=== PATIENT | male | born 1955 | race Caucasian/White ===

== ENCOUNTER 2020-03-29 21:14 | Inpatient (IN) | payer BC, MEDICARE ==
[2020-03-29 21:35] LABS: Glucose,Whole Blood 337 mg/dL (75-99)
[2020-03-29] MEDS ORDERED: MAGNESIUM SULFATE-D5W PMX 1 GM in DEXTROSE/WATER 1 100ML.BAG IVPB ONE (21:37)
[2020-03-29 21:42] LABS: Basophils # (A) 0.1 k/uL (0-0.2); Basophils % (A) 1 %; Eosinophils # (A) 0.3 k/uL (0-0.7); Eosinophils % (A) 2 %; HCT 49.8 % (39.0-53.0); HGB 15.5 gm/dL (13.0-17.5); Hypochromasia Slight; Lymphocytes # (A) 3.4 k/uL (1.0-4.8); Lymphocytes % (A) 26 %; MCH 29.3 pg (25.0-35.0); MCHC 31.2 g/dL (31.0-37.0); MCV 94.1 fL (80.0-100.0); Mean Platelet Volume 8.6; Monocytes # (A) 0.6 k/uL (0-1.0); Monocytes % (A) 4 %; Neutrophils # (A) 8.6 k/uL (1.3-7.7); Neutrophils % (A) 66 %; Platelet Count 168 k/uL (150-450); RBC 5.29 m/uL (4.30-5.90); RDW 14.4 % (11.5-15.5); WBC 13.2 k/uL (3.8-10.6)
[2020-03-29 21:47] LABS: Albumin 4.2 g/dL (3.5-5.0); Magnesium 2.2 mg/dL (1.6-2.3); Potassium 4.7 mmol/L (3.5-5.1); Total Bilirubin 0.6 mg/dL (0.2-1.3); Total Protein 6.9 g/dL (6.3-8.2)
--- NOTE | 2020-03-29 22:04 | XR ---
EXAMINATION TYPE: XR chest 1V portable DATE OF EXAM: 03/29/2020 COMPARISON: NONE HISTORY: Respiratory distress TECHNIQUE: Single view FINDINGS: There is some pulmonary interstitial edema. There is slight blunting of the costophrenic an gles. There are no hilar masses. IMPRESSION: There is pulmonary edema that probably relates to acute heart failure. Small pleural effu sions.
[2020-03-29] MEDS ORDERED: SODIUM CHLORIDE 0.9% 2,000 ML IV ONE (22:07)
[2020-03-29] MEDS ORDERED: NITROGLYCERIN-D5W PMX 50 MG in DEXTROSE/WATER 1 250ML.BAG IV ONE (22:09)
[2020-03-29 22:12] LABS: INR 0.9 (<1.2); Partial Thromboplastin Time 22.7 sec (22.0-30.0); Prothrombin Time 9.8 sec (9.0-12.0)
[2020-03-29 22:20] LABS: D-Dimer 4.6 mg/L FEU (<0.60)
--- NOTE | 2020-03-29 22:20 | ED ---
SOB HPI - General Chief Complaint: Shortness of Breath Stated Complaint: respiratory distress Time Seen by Provider: 03/29/20 21:15 Source: patient, EMS Mode of arrival: EMS Limitations: no limitations - History of Present Illness Initial Comments: 64-year-old male with past history of AAA with repair in 2004 who presents to the emergency department with shortness of breath. Patient stated that he had sudden onset of shortness of breath while he was at home. Denies history of previous underlying heart conditions. Denies history of heart failure. EMS arrived to the patient's house to find him cool, diaphoretic and pale. They found him to have original sat in the mid 80s on a nonrebreather. Patient was then placed on CPAP and transported to the hospital. They reported the patient to be in an A. fib rhythm. Patient denies previous history of dysrhythmia. No history of DVT or PE. Denies cough, hemoptysis, recent travel or sick contacts the lower extremity edema. Denies ripping or tearing sensation to his back. Denies any abdominal pain. No other alleviating, precipitating or modifying factors - Related Data Home Medications Medication Instructions Recorded Confirmed Fish Oil/Dha/Epa [Fish Oil 1,200 1 cap PO DAILY 03/29/20 03/29/20 mg Fish Oil] Allergies Allergy/AdvReac Type Severity Reaction Status Date / Time Tetracyclines Allergy Unknown Verified 03/29/20 22:56 Review of Systems ROS Statement: Those systems with pertinent positive or pertinent negative responses have been documented in the HPI. ROS Other: All systems not noted in ROS Statement are negative. Past Medical History Past Medical History: No Reported History History of Any Multi-Drug Resistant Organisms: None Reported Additional Past Surgical History / Comment(s): abdominal surgery, AAA repair 2004 Past Psychological History: No Psychological Hx Reported Smoking Status: Current some day smoker Past Alcohol Use History: None Reported Past Drug Use History: None Reported General Exam Limitations: no limitations Course Vital Signs 03/29/20 03/29/20 03/29/20 21:15 21:22 22:38 Temperature 98.6 F Pulse Rate 144 H 131 H Respiratory 28 H 28 H Rate Blood Pressure 220/126 166/107 O2 Sat by Pulse 90 L 98 Oximetry 03/29/20 03/29/20 23:01 23:12 Temperature Pulse Rate 115 H 112 H Respiratory 23 18 Rate Blood Pressure 139/95 140/92 O2 Sat by Pulse 97 97 Oximetry - Reevaluation(s) Reevaluation #1: Discuss case with Dr. Lozano who accepted admission 03/29/20 22:10 Reevaluation #2: 03/29/20 23:[address] Amaral who agreed to heparinization Reevaluation #3: Spoke with Dr. Curtis who accepted admission to the ICU 03/29/20 23:54 Medical Decision Making - Medical Decision Making Upon arrival the patient was placed in a trauma 1. A thorough history and physical exam was performed. Patient was transitioned from CPAP to BiPAP. Patient to continuous pulse ox and cardiac monitoring. A 12-lead EKG was attempted however there is significant baseline artifact. Vitals are obtain and the patient is extremely hypertensive. A portal chest x-rays performed does demonstrate fluid overload. Patient was given 1 g of magnesium. Laboratory studies are performed and the patient was sent over for a CT of his chest, abdomen and pelvis due to his previous history of AAA. Laboratory studies are unremarkable for a white count of 13.2. Glucose 270. Lactic acid 7.6. Troponin 0.509. BNP 5780. CTA demonstrates no signs of pulmonary embolism. Cardiomegaly with pleural effusions and interstitial edema. CT demonstrates mild bowel ileus. Clearing of left-sided hydronephrosis and hydroureter. The patient was initiated on a nitro drip. This is started at 20 mcg/min and titrated up to 50 mics per minute. Patient does have significant improvement in his worker breathing, heart rate and blood pressure. Patient is able to be child off of the BiPAP at this time. He was given 60 mg of Lasix. Patient be admitted to the ICU. I discussed the case with Dr. Lozano, Dr. Ramos and Dr. Beltran. Patient is heparinized. He remained in stable condition awaiting transport to the floor - Lab Data Result diagrams: 03/29/20 21:28 03/29/20 21:28 Lab Results 03/29/20 03/29/20 03/29/20 Range/Units 21:28 21:28 21:28 WBC 13.2 H (3.8-10.6) k/uL RBC 5.29 (4.30-5.90) m/uL Hgb 15.5 (13.0-17.5) gm/dL Hct 49.8 (39.0-53.0) % MCV 94.1 (80.0-100.0) fL MCH 29.3 (25.0-35.0) pg MCHC 31.2 (31.0-37.0) g/dL RDW 14.4 (11.5-15.5) % Plt Count 168 (150-450) k/uL Neutrophils % 66 % Lymphocytes % 26 % Monocytes % 4 % Eosinophils % 2 % Basophils % 1 % Neutrophils # 8.6 H (1.3-7.7) k/uL Lymphocytes # 3.4 (1.0-4.8) k/uL Monocytes # 0.6 (0-1.0) k/uL Eosinophils # 0.3 (0-0.7) k/uL Basophils # 0.1 (0-0.2) k/uL Hypochromasia Slight PT 9.8 (9.0-12.0) sec INR 0.9 (<1.2) APTT 22.7 (22.0-30.0) sec D-Dimer 4.60 H (<0.60) mg/L FEU Sodium 140 (137-145) mmol/L Potassium 4.7 (3.5-5.1) mmol/L Chloride 110 H (98-107) mmol/L Carbon Dioxide 15 L (22-30) mmol/L Anion Gap 15 mmol/L BUN 21 H (9-20) mg/dL Creatinine 1.15 (0.66-1.25) mg/dL Est GFR (CKD-EPI)AfAm 77 (>60 ml/min/1.73 sqM) Est GFR (CKD-EPI)NonAf 67 (>60 ml/min/1.73 sqM) Glucose 270 H (74-99) mg/dL POC Glucose (mg/dL) (75-99) mg/dL POC Glu Admitting Supervisor ID Plasma Lactic Acid Abdiel (0.7-2.0) mmol/L Calcium 9.0 (8.4-10.2) mg/dL Magnesium 2.2 (1.6-2.3) mg/dL Total Bilirubin 0.6 (0.2-1.3) mg/dL AST 59 (17-59) U/L ALT 38 (4-49) U/L Alkaline Phosphatase 78 (38-126) U/L Troponin I (0.000-0.034) ng/mL NT-Pro-B Natriuret Pep pg/mL Total Protein 6.9 (6.3-8.2) g/dL Albumin 4.2 (3.5-5.0) g/dL 03/29/20 03/29/20 03/29/20 Range/Units 21:28 21:28 21:28 WBC (3.8-10.6) k/uL RBC (4.30-5.90) m/uL Hgb (13.0-17.5) gm/dL Hct (39.0-53.0) % MCV (80.0-100.0) fL MCH (25.0-35.0) pg MCHC (31.0-37.0) g/dL RDW (11.5-15.5) % Plt Count (150-450) k/uL Neutrophils % % Lymphocytes % % Monocytes % % Eosinophils % % Basophils % % Neutrophils # (1.3-7.7) k/uL Lymphocytes # (1.0-4.8) k/uL Monocytes # (0-1.0) k/uL Eosinophils # (0-0.7) k/uL Basophils # (0-0.2) k/uL Hypochromasia PT (9.0-12.0) sec INR (<1.2) APTT (22.0-30.0) sec D-Dimer (<0.60) mg/L FEU Sodium (137-145) mmol/L Potassium (3.5-5.1) mmol/L Chloride (98-107) mmol/L Carbon Dioxide (22-30) mmol/L Anion Gap mmol/L BUN (9-20) mg/dL Creatinine (0.66-1.25) mg/dL Est GFR (CKD-EPI)AfAm (>60 ml/min/1.73 sqM) Est GFR (CKD-EPI)NonAf (>60 ml/min/1.73 sqM) Glucose (74-99) mg/dL POC Glucose (mg/dL) (75-99) mg/dL POC Glu Admitting Supervisor ID Plasma Lactic Acid Abdiel 7.6 H* (0.7-2.0) mmol/L Calcium (8.4-10.2) mg/dL Magnesium (1.6-2.3) mg/dL Total Bilirubin (0.2-1.3) mg/dL AST (17-59) U/L ALT (4-49) U/L Alkaline Phosphatase (38-126) U/L Troponin I 0.509 H* (0.000-0.034) ng/mL NT-Pro-B Natriuret Pep 5780 pg/mL Total Protein (6.3-8.2) g/dL Albumin (3.5-5.0) g/dL 03/29/20 Range/Units 21:32 WBC (3.8-10.6) k/uL RBC (4.30-5.90) m/uL Hgb (13.0-17.5) gm/dL Hct (39.0-53.0) % MCV (80.0-100.0) fL MCH (25.0-35.0) pg MCHC (31.0-37.0) g/dL RDW (11.5-15.5) % Plt Count (150-450) k/uL Neutrophils % % Lymphocytes % % Monocytes % % Eosinophils % % Basophils % % Neutrophils # (1.3-7.7) k/uL Lymphocytes # (1.0-4.8) k/uL Monocytes # (0-1.0) k/uL Eosinophils # (0-0.7) k/uL Basophils # (0-0.2) k/uL Hypochromasia PT (9.0-12.0) sec INR (<1.2) APTT (22.0-30.0) sec D-Dimer (<0.60) mg/L FEU Sodium (137-145) mmol/L Potassium (3.5-5.1) mmol/L Chloride (98-107) mmol/L Carbon Dioxide (22-30) mmol/L Anion Gap mmol/L BUN (9-20) mg/dL Creatinine (0.66-1.25) mg/dL Est GFR (CKD-EPI)AfAm (>60 ml/min/1.73 sqM) Est GFR (CKD-EPI)NonAf (>60 ml/min/1.73 sqM) Glucose (74-99) mg/dL POC Glucose (mg/dL) 337 H (75-99) mg/dL POC Glu Admitting Supervisor ID Mary Edwards Plasma Lactic Acid Abdiel (0.7-2.0) mmol/L Calcium (8.4-10.2) mg/dL Magnesium (1.6-2.3) mg/dL Total Bilirubin (0.2-1.3) mg/dL AST (17-59) U/L ALT (4-49) U/L Alkaline Phosphatase (38-126) U/L Troponin I (0.000-0.034) ng/mL NT-Pro-B Natriuret Pep pg/mL Total Protein (6.3-8.2) g/dL Albumin (3.5-5.0) g/dL - EKG Data EKG Comments: EKG at 2127 demonstrates sinus tachycardia with a ventricular rate of 140. UT interval 146. QRS 120. QTC of 424. Significant baseline artifact. Some PVCs present. No identifiable distinct P waves and rhythm looks mildly irregular. Repeat EKG is performed at 2235 which demonstrates last baseline artifact. Sinus tachycardia present with a rate of 135. UT interval 120. QRS 112. QTC of 513. No acute ST segment elevations. Some ST depression. Third EKG at 2331 demonstrates sinus tachycardia with a ventricular rate of 110. UT interval 164. QRS 196. QTC of 498. Q-wave in lead 3. No acute ST segment elevations. Minimal depression in V5V6 Disposition Clinical Impression: Hypoxia, BiPAP (biphasic positive airway pressure) dependence, Acute pulmonary edema, NSTEMI (non-ST elevated myocardial infarction) Disposition: ADMITTED IP TO THIS [facility] Condition: Serious Referrals: Rosalino Mcallister MD [Primary Care Provider] - 1-2 days Decision to Admit Reason: Admit from EC Decision Date: 03/29/20 Decision Time: 23:18
--- NOTE | 2020-03-29 22:44 | CT ---
EXAMINATION TYPE: CT chest angio for PE DATE OF EXAM: 03/29/2020 COMPARISON: None HISTORY: SOB CT DLP: 638 mGycm Automated exposure control for dose reduction was used. CONTRAST: Performed with IV Contrast, patient injected with 100 mL of Isovue 370. There are 3-D post processed images. There are small bilateral pleural effusions. There is fluid in the major fissures. Heart is enlarged. There is no pericardial effusion. There is reflux of contrast into the inferior vena cava that could relate to heart failure. There is diffuse pulmonary interstitial edema. There are small paratracheal lymph nodes measuring less than 1 cm. There are no hilar masses. Thoracic spine is intact. Sternum i s intact. Upper abdominal soft tissues are intact. There is aortoiliac bypass graft noted. I see no filling defects in the pulmonary arteries. IMPRESSION: No evidence of pulmonary embolism. Cardiomegaly with pleural effusions and interstitial edema suggest jonah of congestive heart failure.
--- NOTE | 2020-03-29 22:52 | CT ---
EXAMINATION TYPE: CT abdomen pelvis w con DATE OF EXAM: 03/29/2020 COMPARISON: None HISTORY: abd pain CT DLP: 1309.9 mGycm Automated exposure control for dose reduction was used. CONTRAST: Performed with IV Contrast, patient injected with 100 mL of Isovue 370. Multiple axial sections were obtained from the diaphragm to the floor the pelvis with IV contrast. There are small bilateral pleural effusions. Heart is enlarged. There is interstitial infiltrates in both lower lobes. Liver shows no focal defect. Gallbladder is intact. Spleen is intact. Stomach is intact. There is no evidence of pancreatic mass. There is 2.5 cm rounded mass left adrenal gland. There is 2 cm cyst late ral right kidney. There is 1.5 cm cyst lower pole right kidney. There is no hydronephrosis. Abdominal aorta is atheromatous. There is aortoiliac bypass graft noted. There is normal contrast opacificatio n of the bypass graft. There is minimal thrombus on the anterior wall left iliac graft without eviden ce of hemodynamic stenosis. There is no retroperitoneal adenopathy. Delayed images show normal renal excretion. Ureters are not dilated. There is no retroperitoneal adenopathy. Prostate shows calcificat ions and mild enlargement. Bladder distends smoothly. There is no inguinal hernia. There is no free f luid in the pelvis. I see no sign of a bowel obstruction. There are a few distended fluid-filled small bowel loops in the mid abdomen. There is no evidence of free air. There is no ascites. Lumbar spine is intact. Bony pelvis is intact. Hip joints are intact. IMPRESSION: There is evidence for some mild small bowel ileus. I do not see evidence for mechanical bowel obstruc tion. There is clearing of the left-sided hydronephrosis and hydroureter compared to old exam.
[2020-03-29] MEDS ORDERED: HEPARIN SODIUM,PORCINE 5,000 UNIT/ML 1 ML VIAL IV PRN (23:06)
[2020-03-29] MEDS ORDERED: HEPARIN SODIUM,PORCINE 5,000 UNIT/ML 1 ML VIAL IV ONE (23:06)
[2020-03-29] MEDS ORDERED: NALOXONE 0.4 MG/ML 1 ML VIAL IV PRN (23:18)
[2020-03-29] MEDS: HEPARIN SOD,PORK IN 0.45% NACL 25,000 UNIT in 0.45% NACL 1 250ML.BAG IV SCH (23:21)
[2020-03-29] MEDS ORDERED: FUROSEMIDE 10 MG/ML 10 ML VIAL IV STA (23:52)
--- NOTE | 2020-03-30 01:15 | CT ---
EXAMINATION TYPE: CT brain wo con DATE OF EXAM: 03/30/2020 COMPARISON: None HISTORY: stroke CT DLP: 1168.4 mGycm Automated exposure control for dose reduction was used. There is mild cerebral atrophy. There is no mass effect nor midline shift. There is no sign of intrac ranial hemorrhage. Calvarium is intact. There are two 5 mm hypodense foci in the right internal capsu le. There is 2 cm cortical hypodensity right occipital lobe without mass effect. There is 3 cm area o f cortical hypodensity right parietal lobe. No mass effect Blood in the basal cisterns is quite dense and consistent with very high hemoglobin. IMPRESSION: Small lacunar infarcts anterior right internal capsule. These appear old. 2 cm hypodensity in the pos terior right occipital lobe consistent with old infarct. 3 cm cortical hypodensity right parietal lob e consistent with old infarct.
[2020-03-30 02:13] LABS: Glucose,Whole Blood 116 mg/dL (75-99)
[2020-03-30] MEDS: ASPIRIN 325 MG TAB PO SCH ×2 (02:26→09:50)
[2020-03-30] MEDS: ATORVASTATIN 40 MG TAB PO SCH ×2 (02:26→20:10)
--- NOTE | 2020-03-30 03:43 | P.HPIM ---
History of Present Illness H&P Date: 03/30/20 Chief Complaint: sudden onset SOB 64-year-old male with no significant past medical history except for history of AAA repair back in 2004 despite that patient continues to smoke Patient comes in with sudden onset shortness of breath started around evening today after dinner he didn't feel well waited some time he tried to rest but things seem to have been getting worse and worse to the point where he couldn't lay down anymore he has never experienced anything like this he was at his baseline status of health up until today denies any fevers or chills denies any chest pain. Denies any nausea vomiting denies any abdominal pain He experienced severe shortness of breath even at rest with some palpitations for which she decided to come to the hospital for evaluation EMS noted severe hypertension and acute hypoxemia not responding supplemental oxygen he was given some CPAP in the ED he was still hypertensive and hypoxic, EKG showed A. fib new onset, elevated troponin and chest x-ray suggested pulmonary edema Elevated lactic acid a d-dimer. CT angiogram of the chest was done no acute PE but was suggestive of acute CHF patient otherwise denies any cardiac history. Patient also reported left hand weakness, couldn't stroke was activated patient scored [address] of the brain was done showed no acute pathology except for 3 old strokes that patient is not aware of patient has no focal sensory deficits but does report left hand weakness compared to his baseline Patient was admitted to the ICU for further care started on nitro drip and given a dose of Lasix and heparin drip Review of Systems Pertinent positives as noted in HPI. All other systems were reviewed and are negative Past Medical History Past Medical History: No Reported History Additional Past Medical History / Comment(s): AAA repair 2004 History of Any Multi-Drug Resistant Organisms: None Reported Additional Past Surgical History / Comment(s): abdominal surgery, AAA repair 2004 Past Psychological History: No Psychological Hx Reported Smoking Status: Current some day smoker Past Alcohol Use History: None Reported Past Drug Use History: None Reported - Past Family History family Family Medical History: No Reported History Medications and Allergies Home Medications Medication Instructions Recorded Confirmed Type Fish Oil/Dha/Epa [Fish Oil 1,200 1 cap PO DAILY 03/29/20 03/29/20 History mg Fish Oil] Allergies Allergy/AdvReac Type Severity Reaction Status Date / Time Tetracyclines Allergy Unknown Verified 03/29/20 22:56 Physical Exam Vitals: Vital Signs Temp Pulse Resp BP Pulse Ox 03/30/20 00:14 107 H 20 138/89 90 L 03/29/20 23:58 94 L 03/29/20 23:12 112 H 18 140/92 97 03/29/20 23:01 115 H 23 139/95 97 03/29/20 22:38 131 H 28 H 166/107 98 03/29/20 21:22 98.6 F 03/29/20 21:15 144 H 28 H 220/126 90 L Intake and Output 03/29/20 03/29/20 03/30/20 14:59 22:59 06:59 Intake Total 2 2.8 Balance 2 2.8 Intake: Intake, IV Titration 2 2.8 Amount Nitroglycerin-D5w Pmx 50 2 2.8 mg In Dextrose/Water 1 250ml.bag @ 20 MCG/MIN 6 mls/hr IV .Q24H ONE Rx#: [id number] Other: Weight 83.007 kg Constitutional: No acute distress, conversant, pleasant Eyes: Anicteric sclerae, moist conjunctiva, no lid-lag Pupils equal round reactive to light ENMT: NC/AT Oropharynx clear, no erythema, exudates Neck: Supple, FROM, no masses, or JVD No carotid bruits No thyromegaly Lungs: Diffuse rhonchorous breathing with rales at lung bases Normal respiratory effort, no accessory muscle use Cardiovascular: Heart regular in rate and rhythm, No murmurs, gallops, or rubs No peripheral edema Abdominal: Soft Nontender, no guarding, rebound or rigidity Abdomen moving with respiration Normoactive bowel sounds No hepatomegaly, No splenomegaly No palpable mass No abdominal wall hernia noted Skin: Normal temperature, tone, texture, turgor No induration No subcutaneous nodules No rash, lesions No ulcers Extremities: No digital cyanosis No clubbing Pedal pulses intact and symmetrical Radial pulses intact and symmetrical No calf tenderness Psychiatric: Alert and oriented to person, place and time Appropriate affect fair judgement Neuro Muscles Strength 5/5 in all 4 extremities except for weak home agent in the left hand without focal sensory deficits Sensation to light touch grossly present throughout Cranial nerves II-XII grossly intact No focal sensory deficits Lymphatics: no palpable cervical or supraclavicular , or inguinal lymph nodes Results CBC & Chem 7: 03/29/20 21:28 03/29/20 21:28 Labs: Abnormal Lab Results - Last 24 Hours (Table) 03/29/20 03/29/20 03/29/20 Range/Units 21:28 21:28 21:28 WBC 13.2 H (3.8-10.6) k/uL Neutrophils # 8.6 H (1.3-7.7) k/uL D-Dimer 4.60 H (<0.60) mg/L FEU Chloride 110 H (98-107) mmol/L Carbon Dioxide 15 L (22-30) mmol/L BUN 21 H (9-20) mg/dL Glucose 270 H (74-99) mg/dL POC Glucose (mg/dL) (75-99) mg/dL Plasma Lactic Acid Abdiel (0.7-2.0) mmol/L Troponin I (0.000-0.034) ng/mL 03/29/20 03/29/20 03/29/20 Range/Units 21:28 21:28 21:32 WBC (3.8-10.6) k/uL Neutrophils # (1.3-7.7) k/uL D-Dimer (<0.60) mg/L FEU Chloride (98-107) mmol/L Carbon Dioxide (22-30) mmol/L BUN (9-20) mg/dL Glucose (74-99) mg/dL POC Glucose (mg/dL) 337 H (75-99) mg/dL Plasma Lactic Acid Abdiel 7.6 H* (0.7-2.0) mmol/L Troponin I 0.509 H* (0.000-0.034) ng/mL Assessment and Plan Assessment: Malignant hypertension with flash pulmonary edema Acute hypoxic respiratory failure A. fib with RVR An STEMI Plan Continue with nitro drip Heparin drip Cardiac monitoring Trend troponins Cardiology notified Patient will be admitted to the ICU, Status post 1 dose of Lasix reassess in the morning if patient needs more Check echocardiogram Aspirin and statin Lactic acidosis improving Anion Metabolic acidosis secondary to above Patient counseled to quit smoking History of AAA repair 2004 Code stroke activated due to focal weakness and left hand home agent, CT of the brain showed old strokes the patient was not aware of Continue with neuro checks Elevated d-dimer CT angiogram of the chest showed no PE CODE STATUS full code DVT prophylaxis: On heparin drip Discussed with: Patient, ER, RN Anticipated length of stay more than [address]: Pending clinical course A total of 75 minutes was spent on the care of this complex patient more than 50% of the time was spent in counseling and care coordination.
[2020-03-30 04:03] LABS: Basophils % (A) 0 %; Eosinophils # (A) 0.1 k/uL (0-0.7); Eosinophils % (A) 1 %; HCT 44.8 % (39.0-53.0); HGB 14.3 gm/dL (13.0-17.5); Lymphocytes # (A) 0.8 k/uL (1.0-4.8); Lymphocytes % (A) 5 %; MCH 28.8 pg (25.0-35.0); MCHC 31.9 g/dL (31.0-37.0); MCV 90.4 fL (80.0-100.0); Mean Platelet Volume 9.1; Monocytes # (A) 0.8 k/uL (0-1.0); Monocytes % (A) 5 %; Neutrophils # (A) 15.3 k/uL (1.3-7.7); Neutrophils % (A) 89 %; Platelet Count 154 k/uL (150-450); RBC 4.96 m/uL (4.30-5.90); RDW 14.3 % (11.5-15.5); WBC 17.1 k/uL (3.8-10.6)
[2020-03-30 04:25] LABS: African American GFR (CKD) >90 (>60 ml/min/1.73 sqM); Anion Gap 9 mmol/L; Blood Urea Nitrogen 25 mg/dL (9-20); Calcium 8.8 mg/dL (8.4-10.2); Carbon Dioxide 20 mmol/L (22-30); Chloride 110 mmol/L (98-107); Cholesterol 243 mg/dL (<200); Glucose 121 mg/dL (74-99); HDL Cholesterol 45 mg/dL (40-60); LDL Cholesterol,Calculated 185 mg/dL (0-99); Non-African American GFR(CKD) 79 (>60 ml/min/1.73 sqM); Potassium 4.4 mmol/L (3.5-5.1); Sodium 139 mmol/L (137-145); Triglycerides 67 mg/dL (<150)
[2020-03-30 05:34] LABS: Partial Thromboplastin Time 41.9 sec (22.0-30.0); Prothrombin Time 10.4 sec (9.0-12.0)
[2020-03-30 06:57] LABS: Glucose,Whole Blood 110 mg/dL (75-99)
[2020-03-30] MEDS ORDERED: INSULIN ASPART (NovoLOG) 100 UNIT/ML VIAL SQ SCH (07:30)
--- NOTE | 2020-03-30 07:32 | XR ---
EXAMINATION TYPE: XR chest 1V portable DATE OF EXAM: 03/30/2020 COMPARISON: 03/29/2020 HISTORY: Shortness of breath TECHNIQUE: Single frontal view of the chest is obtained. FINDINGS: Heart is enlarged and there is a mildly coarsened interstitium improved from the prior exa m. Improving lower lobe subsegmental consolidation. No pleural effusion. No pneumothorax. Diffuse ost eopenia. IMPRESSION: 1. 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
--- NOTE | 2020-03-30 08:38 | P.CNPUL ---
History of Present Illness Consult date: 03/30/20 Requesting physician: Isai Martell Reason for consult: other (Critical care management) Chief complaint: Shortness of breath History of present illness: This is a very pleasant 64-year-old gentleman who has a history of abdominal aortic aneurysm status post repair in 2004, chronic and ongoing tobacco dependence. He is today he developed an acute onset of shortness of breath and EMS was called. He is found to be cool diaphoretic and pale and original O2 saturations were in the mid 80s. Nonrebreather was tried. He eventually needed CPAP on transfer to the hospital. He was found to be in atrial fibrillation with a rapid ventricular response. Here in the emergency department he was in sinus tachycardia. CT angiogram of the chest revealed no evidence of pulmonary embolism. There is some cardiomegaly with pleural effusion and interstitial edema suggestive of congestive heart failure. CT of the abdomen revealed some mild small bowel ileus but no mechanical bowel obstruction. D-dimer 4.60. Peak troponin 6.14. He was a non-ST segment elevation myocardial infarction admitted to the intensive care unit for the same. The plan is for possible cardiac catheterization today however during the night the patient developed left hand weakness and numbness along with some left lower extremity hyper previous. Computed tomography scan of the brain revealed no acute infarct. He is seen today in consultation in the ICU. He's presently awake and alert in no acute distress. He is maintaining good O2 saturations in the 90s on 2 L/m per nasal cannula. He is on a heparin drip. 0.9 normal saline at KVO. Chest x-ray continues to show some evidence of fluid volume overload. He is given Lasix 60 mg IVP 1. White count 17.1. Hemoglobin 14.3. INR 1.0. Sodium 139. Potassi um 4.4. Bicarb 20. Creatinine 1.0. ProBNP 5780. Review of Systems REVIEW OF SYSTEMS: CONSTITUTIONAL: Denies any recent significant weight loss or weight gain. EYES: Denies change in vision. EARS, NOSE, MOUTH, THROAT: Denies headaches, denies sore throat. CARDIOVASCULAR: Denies chest pain, palpitations or syncopal episodes. RESPIRATORY: Positive for shortness of breath, no cough, congestion or hemoptysis. GASTROINTESTINAL: Denies change in appetite, positive for abdominal pain GENITOURINARY: Denies hematuria, denies infections. MUSKULOSKELETAL: Denies pain, denies swelling. Left hand numbness and weakness, left lower extremity hyperparesia INTEGUMENTARY: Denies rash, denies eczema. NEUROLOGICAL: Denies recent memory loss, no recent seizure activity. PSYCHIATRIC: Denies anxiety, denies depression. HEMATOLOGIC/LYMPHATIC: Denies anemia, denies enlarged lymph nodes. Past Medical History Past Medical History: No Reported History Additional Past Medical History / Comment(s): AAA repair 2004 History of Any Multi-Drug Resistant Organisms: None Reported Additional Past Surgical History / Comment(s): abdominal surgery, AAA repair 2004 Past Psychological History: No Psychological Hx Reported Smoking Status: Current some day smoker Past Alcohol Use History: None Reported Past Drug Use History: None Reported - Past Family History family Family Medical History: No Reported History Medications and Allergies Home Medications Medication Instructions Recorded Confirmed Type Fish Oil/Dha/Epa [Fish Oil 1,200 1 cap PO DAILY 03/29/20 03/29/20 History mg Fish Oil] Allergies Allergy/AdvReac Type Severity Reaction Status Date / Time Tetracyclines Allergy Unknown Verified 03/29/20 22:56 Physical Exam Vitals: Vital Signs Temp Pulse Resp BP Pulse Ox 03/30/20 07:00 80 16 106/76 94 L 03/30/20 06:00 90 19 102/67 94 L 03/30/20 05:00 94 23 101/76 96 03/30/20 04:00 98 F 94 29 H 113/76 95 03/30/20 03:00 97.9 F 99 22 127/89 95 03/30/20 02:11 98.7 F 100 19 118/80 96 03/30/20 02:07 109 H 21 95 03/30/20 01:27 100 18 122/86 96 03/30/20 01:14 105 H 18 114/80 94 L 03/30/20 00:14 107 H 20 138/89 90 L 03/29/20 23:58 94 L 03/29/20 23:12 112 H 18 140/92 97 03/29/20 23:01 115 H 23 139/95 97 03/29/20 22:38 131 H 28 H 166/107 98 03/29/20 21:22 98.6 F 03/29/20 21:15 144 H 28 H 220/126 90 L Intake and Output 03/29/20 03/30/20 03/30/20 22:59 06:59 14:59 Intake Total 2 159.48 10 Output Total 2385 115 Balance 2 -2225.52 -105 Intake: IV 40 10 KVO 40 10 Intake, IV Titration 2 119.48 Amount Heparin Sod,Pork in 0.45% 64.58 NaCl 25,000 unit In 0.45 % NaCl 1 250ml.bag @ 12 UNITS/KG/HR 9.961 mls/hr IV .Q24H [facility] Rx#: [id number] Nitroglycerin-D5w Pmx 50 2 54.9 mg In Dextrose/Water 1 250ml.bag @ 50 MCG/MIN 15 mls/hr IV .[id number] ONE Rx#:[id number] Output: Urine 2385 115 Other: Voiding Method Indwelling Catheter Weight 83.007 kg 80.377 kg GENERAL EXAM: Alert, pleasant 64-year-old gentleman, on 2 L nasal cannula, comfortable in no apparent distress. HEAD: Normocephalic. EYES: Normal reaction of pupils, equal size. NOSE: Clear with pink turbinates. THROAT: No erythema or exudates. NECK: No masses, no JVD. CHEST: No chest wall deformity. LUNGS: Equal air entry with faint crackles in the posterior bases. CVS: S1 and S2 normal with no audible murmur, regular rhythm. ABDOMEN: No hepatosplenomegaly, normal bowel sounds, no guarding or rigidity. SPINE: No scoliosis or deformity SKIN: No rashes CENTRAL NERVOUS SYSTEM: Left hand weakness and numbness, left lower extremity hyperparesia, tone is normal in all 4 extremities. EXTREMITIES: There is no peripheral edema. No clubbing, no cyanosis. Peripheral pulses are intact. Results - Laboratory Findings CBC and BMP: 03/30/20 03:10 03/30/20 03:10 PT/INR, D-dimer PT 10.4 sec (9.0-12.0) 03/30/20 04:26 INR 1.0 (<1.2) 03/30/20 04:26 D-Dimer 4.60 mg/L FEU (<0.60) H 03/29/20 21:28 Abnormal lab findings: Abnormal Labs 03/29/20 03/29/20 03/29/20 21:28 21:28 21:28 WBC 13.2 H Neutrophils # 8.6 H Lymphocytes # APTT D-Dimer 4.60 H Chloride 110 H Carbon Dioxide 15 L BUN 21 H Glucose 270 H POC Glucose (mg/dL) Plasma Lactic Acid Abdiel Troponin I Cholesterol LDL Cholesterol, Calc 03/29/20 03/29/20 03/29/20 21:28 21:28 21:32 WBC Neutrophils # Lymphocytes # APTT D-Dimer Chloride Carbon Dioxide BUN Glucose POC Glucose (mg/dL) 337 H Plasma Lactic Acid Abdiel 7.6 H* Troponin I 0.509 H* Cholesterol LDL Cholesterol, Calc 03/30/20 03/30/20 03/30/20 00:37 01:43 02:12 WBC Neutrophils # Lymphocytes # APTT D-Dimer Chloride Carbon Dioxide BUN Glucose POC Glucose (mg/dL) 116 H Plasma Lactic Acid Abdiel 3.1 H* Troponin I 1.840 H* Cholesterol LDL Cholesterol, Calc 03/30/20 03/30/20 03/30/20 03:10 03:10 03:10 WBC 17.1 H Neutrophils # 15.3 H Lymphocytes # 0.8 L APTT D-Dimer Chloride 110 H Carbon Dioxide 20 L BUN 25 H Glucose 121 H POC Glucose (mg/dL) Plasma Lactic Acid Abdiel Troponin I 3.210 H* Cholesterol 243 H LDL Cholesterol, Calc 185 H 03/30/20 03/30/20 03/30/20 04:26 05:57 06:36 WBC Neutrophils # Lymphocytes # APTT 41.9 H D-Dimer Chloride Carbon Dioxide BUN Glucose POC Glucose (mg/dL) 110 H Plasma Lactic Acid Abdiel Troponin I 6.140 H* Cholesterol LDL Cholesterol, Calc - Diagnostic Findings Chest x-ray: image reviewed CT scan - chest: image reviewed Assessment and Plan Assessment: Acute hypoxemic respiratory failure secondary to suspected acute exacerbation of systolic congestive heart failure, atrial fibrillation and hypertension and non- ST segment elevation myocardial infarction. Non-ST segment elevation myocardial infarction, on a heparin drip Brief episode of atrial fibrillation according to EMS, currently sinus rhythm Hypertension Left hand weakness and numbness with left lower extremity hyperparesia, computed tomography scan of the brain revealed no acute infarct Chronic and ongoing tobacco dependence History of abdominal aortic aneurysm, status post repair in 2004 Plan: The patient was seen and evaluated by Dr. Curtis Chest x-ray, CAT scans and labs reviewed Did receive 1 dose of IV Lasix with some improvement Echocardiogram pending Neurology consult Cardiac catheterization once stabilized Educated regarding the importance of complete smoking cessation We will continue to follow and make further recommendations based on his clinical status I, the cosigning physician, performed a history & physical examination of the patient. Lungs sounds with faint crackles in the bilateral posterior bases. Maintaining good O2 saturations in the 90s on 2 L/m per nasal cannula. I discussed the assessment and plan of care with my nurse practitioner, Kaycee Churchill. I attest to the above consultation as dictated by her. Time with Patient: Greater than 30
--- NOTE | 2020-03-30 08:46 | P.CRDCN ---
History of Present Illness Consult date: 03/30/20 Reason for Consult (text): Non-STEMI History of present illness: HISTORY OF PRESENTING ILLNESS This is a pleasant 64-year-old male past medical history significant for AAA status post replacement and unknown "neuropathy" surgery of his groin area for left leg pain who presents with sudden onset of shortness of breath yesterday. He denies any prior significant medical history such as hypertension, diabetes, hyperlipidemia. He had been in his usual state of health up until yesterday night when he started feeling short of breath and cannot catch his breath. He admits orthopnea and had to sit up and go to the garage to catch his breath. He denies any chest pain or pressure. He finally called EMS and was transported to the hospital. Per report, EMS noted atrial fibrillation however I do not have the EKG to support this. By the time he came to the emergency department he was in sinus rhythm with nonspecific ST and T wave abnormalities. He was placed on a BiPAP with respiratory distress. He had chest x-ray which showed concerns of heart failure or pneumonia. He denies any recent fevers, chills, cough. He denies any chest pain or pressure, nausea or diaphoresis. Unfortunately overnight he developed left hand weakness with inability to open his hand as well as some left lower leg paresthesias. He had a brain CT which showed small lacunar infarcts of the anterior right internal capsule which appeared old. He does smoke tobacco however expresses he will quit. He was noted to be hypertensive with initial blood pressure 220s and was placed on Nitroglycerin drip with improvement. He was additionally given Lasix with good urine output and has since been taken off of the BiPAP and able to lie on his back without an y orthopnea. Denies any palpitations at home or fluttering in his chest DIAGNOSTICS EKG reveals sinus tachycardia, nonspecific ST-T wave abnormalities. Chest xray pulmonary edema, likely heart failure per reading. CTA showed no pulmonary embolism with cardiomegaly and findings suggestive of heart failure. CT abdomen and pelvis showed no evidence of ileus or bowel obstruction. It also showed aortoiliac bypass graft noted. CT brain showed no bleed and old lacunar infarcts. Laboratory reviewed, white blood cell count 17.1, INR 1.0, creatinine 1.0, total cholesterol 243, LDL 185, troponins increasing from 0.5-1.8-3.2-6.1. Current cardiac medications include aspirin, Lipitor 40 mg daily. REVIEW OF SYSTEMS At the time of my exam: CONSTITUTIONAL: Denies fever or chills. CARDIOVASCULAR: Denies chest pain, +shortness of breath, +orthopnea, denies PND or palpitations. RESPIRATORY: Denies cough. GASTROINTESTINAL: Denies abdominal pain, diarrhea, constipation, nausea or vomiting. MUSCULOSKELETAL: Denies myalgias. NEUROLOGIC: + numbness, + left upper extremity tingling and weakness ENDOCRINE: Denies fatigue, weight change, polydipsia or polyurina. GENITOURINARY: Denies burning, hematuria or urgency with micturation. HEMATOLOGIC: Denies history of anemia or bleeding. PHYSICAL EXAMINATION Blood pressure 113/76 heart rate 94 afebrile and maintaining oxygen saturation on 2 L nasal cannula. CONSTITUTIONAL: No apparent distress. HEENT: Head is normocephalic. Pupils are equal, round. Sclerae anicteric. Mucous membranes of the mouth are moist. No JVD. No carotid bruit. CHEST EXAMINATION: Lungs are clear to auscultation. No chest wall tenderness is noted on palpation or with deep breathing. HEART EXAMINATION: Regular rate and rhythm. S1, S2 heard. No murmurs, gallops or rub. ABDOMEN: Soft, nontender. Positive bowel sounds. Positive midline surgical scar EXTREMITIES: 2+ peripheral pulses, no lower extremity edema and no calf tenderness. NEUROLOGIC EXAMINATION: Patient is awake, alert and oriented x3. ASSESSMENT 1. Acute systolic heart failure with preliminary echo showing ejection fraction 10 to 20% 2. Non-STEMI, likely type I mechanism 3. Hyperlipidemia, not on medication at home 4. Left upper extremity weakness overnight, suspicious for acute stroke 5. Hold lacunar infarcts on CAT scan 6. Reported atrial fibrillation by EMS however have not been able to obtain actual EKG and sinus rhythm by the time he reached the ER 7. Tobacco abuse 8. Lactic acidosis on admission improved 9. Hypertension when presented to emergency department, improved PLAN Patient presented with acute heart failure and non-STEMI. From a heart failure standpoint he has improved with improvement in his blood pressure, lactic acidosis and is currently able to lie flat. Continue aspirin and heparin drip for his non-STEMI. Pulmonary echo shows ejection fraction less than 20%. Discussed heart catheterization with patient and patient is agreeable. Patient did however have findings of left upper extremity weakness concerning for stroke and we will clear him from a neurology standpoint before taking him to the [facility] unless patient decompensates. Acute stroke may have been caused by reported atrial fibrillation by EMS with conversion to sinus rhythm by the time he reached the ER or we must rule out LV thrombus. Discussed with ear mold laboratory technician and she will check a echo with contrast. We will add a low-dose beta mona as tolerated. Further recommendations to follow. Past Medical History Past Medical History: No Reported History Additional Past Medical History / Comment(s): AAA repair 2004 History of Any Multi-Drug Resistant Organisms: None Reported Additional Past Surgical History / Comment(s): abdominal surgery, AAA repair 2004 Past Psychological History: No Psychological Hx Reported Smoking Status: Current some day smoker Past Alcohol Use History: None Reported Past Drug Use History: None Reported - Past Family History family Family Medical History: No Reported History Medications and Allergies Home Medications Medication Instructions Recorded Confirmed Type Fish Oil/Dha/Epa [Fish Oil 1,200 1 cap PO DAILY 03/29/20 03/29/20 History mg Fish Oil] Allergies Allergy/AdvReac Type Severity Reaction Status Date / Time Tetracyclines Allergy Unknown Verified 03/29/20 22:56 Physical Exam Vitals: Vital Signs Temp Pulse Resp BP Pulse Ox 03/30/20 07:00 80 16 106/76 94 L 03/30/20 06:00 90 19 102/67 94 L 03/30/20 05:00 94 23 101/76 96 03/30/20 04:00 98 F 94 29 H 113/76 95 03/30/20 03:00 97.9 F 99 22 127/89 95 03/30/20 02:11 98.7 F 100 19 118/80 96 03/30/20 02:07 109 H 21 95 03/30/20 01:27 100 18 122/86 96 03/30/20 01:14 105 H 18 114/80 94 L 03/30/20 00:14 107 H 20 138/89 90 L 03/29/20 23:58 94 L 03/29/20 23:12 112 H 18 140/92 97 03/29/20 23:01 115 H 23 139/95 97 03/29/20 22:38 131 H 28 H 166/107 98 03/29/20 21:22 98.6 F 03/29/20 21:15 144 H 28 H 220/126 90 L Intake and Output 03/29/20 03/30/20 03/30/20 22:59 06:59 14:59 Intake Total 2 159.48 10 Output Total 2385 115 Balance 2 -2225.52 -105 Intake: IV 40 10 KVO 40 10 Intake, IV Titration 2 119.48 Amount Heparin Sod,Pork in 0.45% 64.58 NaCl 25,000 unit In 0.45 % NaCl 1 250ml.bag @ 12 UNITS/KG/HR 9.961 mls/hr IV .Q24H [facility] Rx#: [id number] Nitroglycerin-D5w Pmx 50 2 54.9 mg In Dextrose/Water 1 250ml.bag @ 50 MCG/MIN 15 mls/hr IV .[id number] ONE Rx#:[id number] Output: Urine 2385 115 Other: Voiding Method Indwelling Catheter Weight 83.007 kg 80.377 kg Results 03/30/20 03:10 03/30/20 03:10 Cardiac Enzymes 03/29/20 03/29/20 03/30/20 Range/Units 21:28 21:28 01:43 AST 59 (17-59) U/L Troponin I 0.509 H* 1.840 H* (0.000-0.034) ng/mL 03/30/20 03/30/20 Range/Units 03:10 05:57 AST (17-59) U/L Troponin I 3.210 H* 6.140 H* (0.000-0.034) ng/mL Coagulation 03/29/20 03/30/20 Range/Units 21:28 04:26 PT 9.8 10.4 (9.0-12.0) sec APTT 22.7 41.9 H (22.0-30.0) sec Lipids 03/30/20 Range/Units 03:10 Triglycerides 67 (<150) mg/dL Cholesterol 243 H (<200) mg/dL HDL Cholesterol 45 (40-60) mg/dL CBC 03/29/20 03/30/20 Range/Units 21:28 03:10 WBC 13.2 H 17.1 H (3.8-10.6) k/uL RBC 5.29 4.96 (4.30-5.90) m/uL Hgb 15.5 14.3 (13.0-17.5) gm/dL Hct 49.8 44.8 (39.0-53.0) % Plt Count 168 154 (150-450) k/uL Comprehensive Metabolic Panel 03/29/20 03/30/20 Range/Units 21:28 03:10 Sodium 140 139 (137-145) mmol/L Potassium 4.7 4.4 (3.5-5.1) mmol/L Chloride 110 H 110 H (98-107) mmol/L Carbon Dioxide 15 L 20 L (22-30) mmol/L BUN 21 H 25 H (9-20) mg/dL Creatinine 1.15 1.00 (0.66-1.25) mg/dL Glucose 270 H 121 H (74-99) mg/dL Calcium 9.0 8.8 (8.4-10.2) mg/dL AST 59 (17-59) U/L ALT 38 (4-49) U/L Alkaline Phosphatase 78 (38-126) U/L Total Protein 6.9 (6.3-8.2) g/dL Albumin 4.2 (3.5-5.0) g/dL Current Medications Generic Name Dose Route Start Last Admin Trade Name Freq PRN Reason Stop Dose Admin Aspirin 325 mg 03/30/20 02:01 03/30/20 02:26 Aspirin PO 325 mg DAILY OSWALDO Administration Atorvastatin Calcium 40 mg 03/30/20 02:00 03/30/20 02:26 Lipitor PO 40 mg HS OSWALDO Administration Heparin Sodium (Porcine) 0 unit 03/29/20 23:06 03/30/20 05:52 Heparin IV 2,010 unit PER PROTOCOL PRN Administration Low PTT Protocol Nitroglycerin/Dextrose 50 mg/ 250 mls @ 15 mls/hr 03/29/20 22:09 03/30/20 04:30 IV Solution IV 03/30/20 14:48 0 mcg/min .[id number] ONE 0 mls/hr Titration Protocol 50 MCG/MIN Heparin Sodium/Sodium Chloride 250 mls @ 9.961 mls/hr 03/29/20 23:15 03/30/20 05:50 25,000 unit/ Sodium Chloride IV 14 units/kg/hr .Q24H OSWALDO 11.621 mls/hr Titration Protocol 12 UNITS/KG/HR Insulin Aspart 0 unit 03/30/20 07:30 03/30/20 07:02 Novolog SQ Not Given ACHS OSWALDO Protocol Naloxone HCl 0.2 mg 03/29/20 23:18 Narcan IV Q2M PRN Opioid Reversal Intake and Output 03/29/20 03/30/20 03/30/20 22:59 06:59 14:59 Intake Total 2 159.48 10 Output Total 2385 115 Balance 2 -2225.52 -105 Intake: IV 40 10 KVO 40 10 Intake, IV Titration 2 119.48 Amount Heparin Sod,Pork in 0.45% 64.58 NaCl 25,000 unit In 0.45 % NaCl 1 250ml.bag @ 12 UNITS/KG/HR 9.961 mls/hr IV .Q24H [facility] Rx#: [id number] Nitroglycerin-D5w Pmx 50 2 54.9 mg In Dextrose/Water 1 250ml.bag @ 50 MCG/MIN 15 mls/hr IV .[id number] [facility] Rx#:[id number] Output: Urine 2385 115 Other: Voiding Method Indwelling Catheter Weight 83.007 kg 80.377 kg 03/30/20 03:10 03/30/20 03:10
[2020-03-30] MEDS: carvediloL 6.25 MG TAB PO SCH ×2 (09:50→17:34)
--- NOTE | 2020-03-30 12:00 | ECHOF ---
Referral Reason:pulmonary edema, nstemi MEASUREMENTS -------- HEIGHT: 180.3 cm WEIGHT: 80.3 kg BP: 106/76 RVIDd: 2.5 cm (< 3.3) IVSd: 1.2 cm (0.6 - 1.1) LVIDd: 5.6 cm (3.9 - 5.3) LVPWd: 1.3 cm (0.6 - 1.1) IVSs: 1.6 cm LVIDs: 5.3 cm LVPWs: 1.8 cm LAESV Index (A-L): 32.45 ml/m Ao Diam: 3.0 cm (2.0 - 3.7) AV Cusp: 1.7 cm (1.5 - 2.6) LA Diam: 3.4 cm (2.7 - 3.8) MV EXCURSION: 16.659 mm (> 18.000) MV EF SLOPE: 59 mm/s (70 - 150) EPSS: 1.7 cm MV E [place]: 0.75 m/s MV DecT: 183 ms MV A [place]: 0.46 m/s MV E/A Ratio: 1.63 AR PHT: 597 ms RAP: 5.00 mmHg RVSP: 22.12 mmHg TAPSE: 18.44 mm FINDINGS -------- This was a technically good study. The left ventricular size is normal. There is mild concentric left ventricular hypertrophy. There is severe global hypokinesis of LV . Overall left ventricular systolic function is severely impair ed with, an EF between 20 - 25 %. The right ventricle is normal in size. LA is midly dilated 29-33ml/m2. The right atrial size is normal. Lumason used to rule out clot. Interatrial and interventricular septum intact. Aortic valve is trileaflet and is mildly thickened. There is mild aortic regurgitation. The mitral valve is normal. The mitral valve leaflets are mildly thickened. Moderate mitral regur gitation is present. The tricuspid valve appears structurally normal. Mild tricuspid regurgitation present. Right vent ricular systolic pressure is normal at < 35 mmHg. Possible Thrombus in LV [place] The aortic root size is normal. Normal inferior vena cava with normal inspiratory collapse consistent with estimated right atrial pre ssure of 5 mmHg. There is no pericardial effusion. CONCLUSIONS -------- 1. The left ventricular size is normal. 2. There is mild concentric left ventricular hypertrophy. 3. There is severe global hypokinesis of LV . 4. Overall left ventricular systolic function is severely impaired with, an EF between 20 - 25 %. 5. LA is midly dilated 29-33ml/m2. 6. Lumason used to rule out clot. 7. Aortic valve is trileaflet and is mildly thickened. 8. There is mild aortic regurgitation. 9. The mitral valve leaflets are mildly thickened. 10. Moderate mitral regurgitation is present. 11. Mild tricuspid regurgitation present. 12. Possible Thrombus in LV [place] [employer]ER: Alba Chavez RDCS
[2020-03-30 12:21] LABS: Glucose,Whole Blood 113 mg/dL (75-99)
[2020-03-30] MEDS ORDERED: SODIUM CHLORIDE 0.9% 1,000 ML in EMPTY BAG 1 BAG IV ONE (12:54)
[2020-03-30] MEDS ORDERED: ALPRAZolam 0.5 MG TAB PO PRN (12:54)
[2020-03-30] MEDS ORDERED: ALPRAZolam 0.25 MG TAB PO PRN (12:54)
[2020-03-30] MEDS ORDERED: IV FLUID CONTINUATION 1,000 ML IV ONE (13:25)
[2020-03-30] MEDS ORDERED: MIDAZOLAM 2 MG/2 ML VIAL IV ONE (13:34)
[2020-03-30] MEDS ORDERED: fentaNYL (PF) 50 MCG/ML 2 ML AMP IV ONE (13:34)
[2020-03-30] MEDS ORDERED: LIDOCAINE 1% INJ 10MG/ML (10 ML MDV) SQ ONE (13:36)
[2020-03-30] MEDS: VERAPAMIL SYRINGE (5 MG/10 ML) INTRAARTER ONE ×2 (13:40→13:53)
[2020-03-30] MEDS ORDERED: IOPAMIDOL-370 125ML BTL INJ ONE (13:54)
[2020-03-30 14:12] LABS: Hemoglobin A1C 5.5 % (4.0-6.0)
--- NOTE | 2020-03-30 14:36 | P.CARDCATH ---
Date of Procedure: 03/30/20 Preoperative Diagnosis: Non-STEMI Postoperative Diagnosis: Non-STEMI, multivessel CAD Procedure(s) Performed: Bilateral coronary angiography, right radial approach Anesthesia: local Surgeon: Chandler Raza Estimated Blood Loss (ml): 10 Pathology: none sent Condition: stable Disposition: ICU Indications for Procedure: NSTEMI, new-onset cardiomyopathy Operative Findings: HISTORY: Patient is a pleasant 64-year-old male with a history of tobacco abuse and AAA repair with questionable PAD who presented to the hospital with acute onset of shortness of breath last night. He had orthopnea and difficulty breathing and therefore called EMS. Per EMS report he was in atrial fibrillation however by the time he gets to urgency department he was in sinus rhythm. He was found to have non-STEMI and heart failure. Echo showed a decreased ejection fraction of 20% with possible LV thrombus. He also had new onset of left upper extremity weakness and was seen by neurology and cleared for heart catheterization. CONSENT:I have discussed the risks, benefits and alternative therapies for the above-mentioned procedure and for both sedation/analgesia as well as necessary blood product administration, if indicated, as they pertain to this patient. The patient has indicated understanding and acceptance of the risks and procedures discussed. PROCEDURE: After the risks, benefits and alternatives of the above mentioned procedure were discussed in detail with the patient, informed consent was obtained. Patient was brought to the catheterization lab and prepped and draped in the usual fashion. Patient was given sedation with Versed and fentanyl. [facility] radial access was obtained using a 6-[place] sheath. Right left coronary angiography was performed using the 5-[place] FR5 and FL 3.5. Left ventriculogram was deferred secondary to possible left ventricular thrombus. Total sedation time was 18 minutes. Conscious Sedation: Versed 1 mg, fentanyl 25 g Duration 18 minutes HEMODYNAMICS: Aortic pressure 120/65 SELECTIVE CORONARY ARTERIOGRAPHY: LEFT MAIN: The left main is a large caliber vessel which trifurcates into LAD, ramus and circumflex. There is a 50% distal left main stenosis involving the trifurcation. THE LEFT ANTERIOR DESCENDING CORONARY ARTERY: LAD is large caliber vessel which has a mid 70% hazy stenosis at the level of a moderate caliber second septal parking enforcement manager. It gives off a small caliber diagonal 1 branch which has a 80% proximal stenosis and has DIMAS 2 flow. RAMUS: Ramus is a moderate caliber vessel which is subtotally occluded at its midportion with very late filling from collaterals. CIRCUMFLEX: The circumflex is a moderate caliber vessel with a proximal 50% stenosis and gives off 2 obtuse marginal branches which appears subtotally occluded area there is filling from the RCA to what appears to be the OM branches. THE RIGHT CORONARY ARTERY: RCA is a moderate caliber vessel which has a 100% mid RCA stenosis with DIMAS 2 flow. There are [id number] collaterals which supply the PDA. LEFT VENTRICULOGRAPHY: Left ventriculography was deferred secondary to concern of left ventricular thrombus FINAL IMPRESSION: 1. Multivessel coronary artery disease as described above including distal left main 50% stenosis, 70% hazy LAD stenosis which is likely the culprit, 80% diagonal 1 stenosis, 100% ramus stenosis, 50% circumflex stenosis and subtotal occlusion of OM1 and OM2. 2. Ischemic cardiomyopathy with ejection fraction 20% 3. Left ventricular thrombus 4. Acute stroke on presentation PLAN: Given high syntax score we will have patient evaluated for CABG. No history of diabetes however mildly elevated glucose and we will check a hemoglobin A1c. Continue on heparin drip and antianginal and heart failure regimen as tolerated. PROGNOSIS: Guarded
--- NOTE | 2020-03-30 15:11 | P.CNNES ---
History of Present Illness Consult date: 03/30/20 Requesting physician: Chandler Raza Reason for Consult: Possible stroke/strokelike symptoms History of Present Illness: Patient is a 64-year-old male presents to the hospital yesterday at 9:14 PM for sudden onset of shortness of breath, and difficulty breathing. Patient was diagnosed with acute systolic heart failure with low ejection fraction, non- STEMI. Overnight he developed left hand weakness with inability to open his hand as well as some left lower leg paresthesias, which prompted this neurology consultation. Patient is currently on aspirin and heparin drip for non-STEMI. Patient states that when he arrived to the hospital, he was fine, but no focal symptoms. Patient's blood pressure was 220/126, pulse rate 144 temperature 98.6. After patient was diagnosed with non-STEMI, patient was given a loading dose of heparin IV 4000 units at 11 PM and started on heparin drip at 11:15 PM. Patient was noted to have atrial fibrillation by EMS, but was not reproduced in the ER subsequently. 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 He also noticed some paresthesias in the left leg. Denies any headache, problem with the vision, slurred speech. Stroke code was activated. I do not see any documentation of recommendation from stroke neurologist. However NIH stroke scale documented was 1. Patient did not receive TPA (?Due to being on heparin drip). Patient underwent CT head showed small lacunar infarcts in the right internal capsule. These appear old. 2 cm hypodensity in the posterior right occipital lobe consistent with old infarct. 3 cm cortical hypodensity right parietal lobe consistent with old infarct. On my review, the right occipital lesion appears subacute in nature. The right parietal and internal capsule lesion appears old. EKG shows sinus tachycardia with fusion complexes nonspecific ST and T-wave abnormality. Chest x-ray showed improving interstitial pattern and lower lobe infiltrate correlate for improving CHF otherwise consider improving pneumonia. CTA of the chest from 03/29/2020 showed no evidence of PE. Cardiomegaly with pleural effusions and interstitial edema suggestive of congestive heart failure. CT of abdomen and pelvis showed some small bowel ileus. No evidence of mechanical bowel obstruction. There is clearing of the left-sided hydronephrosis and hydroureter compared to old exam. Patient's blood test shows elevated troponin 3.210, which went up to 6.140. Total cholesterol is 243, LDL 185, HDL 45 and triglycerides 67. Chem-7 is normal. WBC 17.1 hemoglobin 14.3 and platelets 154. PTT is 41.9 with INR 1.0. Patient at present continues to have significant weakness of the left hand, but not proximally of the left upper limb. He has normal strength in the left lower limb, but has dysesthesias involving the left leg. Denies any problem with slurred speech facial droop or visual issues or headache. Patient denies hypertension diabetes. He has smoked 3/4th pack per day for last 40 years. Patient does not take any antiplatelet medication at home. Review of Systems As per HPI. All other 14 points review of systems unremarkable. Patient is sharon y healthy otherwise. Past Medical History Past Medical History: No Reported History Additional Past Medical History / Comment(s): AAA repair 2004 History of Any Multi-Drug Resistant Organisms: None Reported Additional Past Surgical History / Comment(s): abdominal surgery, AAA repair 2 005 Past Psychological History: No Psychological Hx Reported Smoking Status: Current some day smoker Past Alcohol Use History: None Reported Past Drug Use History: None Reported - Past Family History family Family Medical History: No Reported History Mother Family Medical History: COPD Father Additional Family Medical History / Comment(s): from Brain aneurysm Medications and Allergies Home Medications Medication Instructions Recorded Confirmed Type Fish Oil/Dha/Epa [Fish Oil 1,200 1 cap PO DAILY 03/29/20 03/29/20 History mg Fish Oil] Allergies Allergy/AdvReac Type Severity Reaction Status Date / Time Tetracyclines Allergy Unknown Verified 03/29/20 22:56 Physical Examination - Vital Signs Vital Signs: Vital Signs Temp Pulse Resp BP Pulse Ox 03/30/20 10:00 93 23 121/74 96 03/30/20 09:00 94 23 110/74 95 03/30/20 08:00 97.9 F 91 20 109/72 95 03/30/20 07:00 80 16 106/76 94 L 03/30/20 06:00 90 19 102/67 94 L 03/30/20 05:00 94 23 101/76 96 03/30/20 04:00 98 F 94 29 H 113/76 95 03/30/20 03:00 97.9 F 99 22 127/89 95 03/30/20 02:11 98.7 F 100 19 118/80 96 03/30/20 02:07 109 H 21 95 03/30/20 01:27 100 18 122/86 96 03/30/20 01:14 105 H 18 114/80 94 L 03/30/20 00:14 107 H 20 138/89 90 L 03/29/20 23:58 94 L 03/29/20 23:12 112 H 18 140/92 97 03/29/20 23:01 115 H 23 139/95 97 03/29/20 22:38 131 H 28 H 166/107 98 03/29/20 21:22 98.6 F 03/29/20 21:15 144 H 28 H 220/126 90 L Intake and Output 03/29/20 03/30/20 03/30/20 22:59 06:59 14:59 Intake Total 2 159.48 40 Output Total 2385 315 Balance 2 -2225.52 -275 Intake: IV 40 40 KVO 40 40 Intake, IV Titration 2 119.48 Amount Heparin Sod,Pork in 0.45% 64.58 NaCl 25,000 unit In 0.45 % NaCl 1 250ml.bag @ 12 UNITS/KG/HR 9.961 mls/hr IV .Q24H [facility] Rx#: [id number] Nitroglycerin-D5w Pmx 50 2 54.9 mg In Dextrose/Water 1 250ml.bag @ 50 MCG/MIN 15 mls/hr IV .[id number] [facility] Rx#:[id number] Output: Urine 2385 315 Other: Voiding Method Indwelling Catheter Indwelling Catheter Weight 83.007 kg 80.377 kg On examination patient is an elderly male, appears somewhat younger than his stated age. He is alert and awake fully oriented to time place and person. Speech and language functions are normal. Attention and concentration fund of knowledge is adequate. On cranial nerve examination pupils are round and reacting to light, visual locke are full on confrontation, extraocular muscles are intact with no nystagmus. Face is symmetric, tongue protrudes to the midline. Palatal elevation sensation normal hearing and shoulder shrug normal on muscle strength testing patient has left pronator drift. The strength is normal in the right arm and right leg. On the left side his deltoid biceps and triceps is completely normal. Accounting Consultant is about 3+ to 4-, finger extension is trace. Strength in the left lower extremities completely normal. Sensory touch is equal in both upper limbs with no neglect on double simultaneous stimulation. Sensory touch in the lower limbs is producing paresthesias in the left leg from knee down to the foot. Sensations in the face is equal. Patient is ataxic for [id number] testing on the left. Tone and bulk of muscles normal. Gait deferred. No obvious bruit, S1 and S2 audible. No peripheral edema. Peripheral pulses present. Abdomen is soft nontender. Results - Laboratory Findings CBC and BMP: 03/30/20 03:10 03/30/20 03:10 Abnormal Lab Findings: Abnormal Labs 03/29/20 03/29/20 03/29/20 21:28 21:28 21:28 WBC 13.2 H Neutrophils # 8.6 H Lymphocytes # APTT D-Dimer 4.60 H Chloride 110 H Carbon Dioxide 15 L BUN 21 H Glucose 270 H POC Glucose (mg/dL) Plasma Lactic Acid Abdiel Troponin I Cholesterol LDL Cholesterol, Calc 03/29/20 03/29/20 03/29/20 21:28 21:28 21:32 WBC Neutrophils # Lymphocytes # APTT D-Dimer Chloride Carbon Dioxide BUN Glucose POC Glucose (mg/dL) 337 H Plasma Lactic Acid Abdiel 7.6 H* Troponin I 0.509 H* Cholesterol LDL Cholesterol, Calc 03/30/20 03/30/20 03/30/20 00:37 01:43 02:12 WBC Neutrophils # Lymphocytes # APTT D-Dimer Chloride Carbon Dioxide BUN Glucose POC Glucose (mg/dL) 116 H Plasma Lactic Acid Abdiel 3.1 H* Troponin I 1.840 H* Cholesterol LDL Cholesterol, Calc 03/30/20 03/30/20 03/30/20 03:10 03:10 03:10 WBC 17.1 H Neutrophils # 15.3 H Lymphocytes # 0.8 L APTT D-Dimer Chloride 110 H Carbon Dioxide 20 L BUN 25 H Glucose 121 H POC Glucose (mg/dL) Plasma Lactic Acid Abdiel Troponin I 3.210 H* Cholesterol 243 H LDL Cholesterol, Calc 185 H 03/30/20 03/30/20 03/30/20 04:26 05:57 06:36 WBC Neutrophils # Lymphocytes # APTT 41.9 H D-Dimer Chloride Carbon Dioxide BUN Glucose POC Glucose (mg/dL) 110 H Plasma Lactic Acid Abdiel Troponin I 6.140 H* Cholesterol LDL Cholesterol, Calc Assessment and Plan Assessment: * Acute ischemic stroke, probably on 2 different anatomic locations. Patient's left hand motor weakness, and left lower leg paresthesias, are probably 2 different ischemic strokes, involving the right MCA vascular territory. Events are highly cardioembolic in nature. * Evidence of left ventricular apical clot on 2-D echo. * Paroxysmal atrial fibrillation * Acute non-STEMI * Hypertension * Hyperlipidemia * Tobacco use Plan: * Patient underwent 2-D echo, which revealed mild concentric LVH, normal left- ventricular size. Severe global hypokinesis of left ventricle. EF is 20-25%. Left atrium is mildly dilated. Mild aortic regurgitation. Moderate MR. Possible thrombus in the left ventricular apex. * Continue anticoagulation with IV heparin. Most recent PTT is 52.5, therapeutic. * Continue aspirin 325 mg. * From stroke standpoint, patient is clear for cardiac catheterization, however would definitely avoid stopping heparin at this time to prevent any more cerebrovascular accident. * Carotid Doppler showed no significant stenosis, antegrade flow in both vertebral arteries. * Agree with starting Lipitor 40 mg. * MRI of brain, MRA of head. * Tobacco cessation. * Neurology consultation coverage not available over the weekend. May perfect serve for any concerns however.
--- NOTE | 2020-03-30 16:00 | US ---
EXAMINATION TYPE: US carotid duplex BILAT DATE OF EXAM: 03/30/2020 COMPARISON: NONE CLINICAL HISTORY: Pre-Op Cardiac Surgery. Pre-Op CABG EXAM MEASUREMENTS: RIGHT: Peak Systolic Velocity (PSV) cm/sec ----- Right CCA: 38.4 ----- Right ICA: 60.1 ----- Right ECA: 83.4 ICA/CCA ratio: 1.6 RIGHT: End Diastole cm/sec ----- Right CCA: 9.2 ----- Right ICA: 31.3 ----- Right ECA: 12.0 LEFT: Peak Systolic Velocity (PSV) cm/sec ----- Left CCA: 47.9 ----- Left ICA: 65.3 ----- Left ECA: 97.7 ICA/CCA ratio: 1.4 LEFT: End Diastole cm/sec ----- Left CCA: 17.4 ----- Left ICA: 35.7 ----- Left ECA: 6.5 VERTEBRALS (direction of flow): Right Vertebral: Antegrade Left Vertebral: Antegrade Rhythm: Normal Atherosclerotic plaque noted. No significant stenosis seen IMPRESSION: 1. No significant hemodynamic stenosis as visualized. Criteria for Assigning % of Stenosis / Diameter reduction (Estimation based on the indirect measurements of the internal carotid artery velocities (ICA PSV). 1. Normal (no stenosis)=ICA PSV < 125 cm/s: ratio < 2.0: ICA EDV<40 cm/s. 2. Less than 50% stenosis=ICA PSV < 125 cm/s: ratio < 2.0: ICA EDV<40 cm/s. 3. 50 to 69% stenosis=ICA PSV of 125 to 230 cm/s: ration 2.0 ? 4.0: ICA EDV 40-100 cm/s. 4. Greater than 70% stenosis to near occlusion= ICA PSV > 230 cm/s: ratio > 4.0: ICA EDV > 100 cm/s. 5. Near occlusion= ICA PSV velocities may be low or undetectable: variable ratio and ICA EDV. 6. Total occlusion=unable to detect flow.
--- NOTE | 2020-03-30 16:42 | P.GSCN ---
History of Present Illness Consult date: 03/30/20 Reason for Consult: Multivessel coronary artery disease, moderate mitral valve regurgitation, possible thrombus in left ventricular apex. Requesting physician: Chandler Raza History of present illness: This a 64-year-old gentleman who does not follow with a primary care physician on a regular basis. The patient has a history of peripheral arterial disease and is status post aortobifemoral bypass in 2004, chronic ongoing tobacco abuse smokes about three quarters of a pack of cigarettes daily and history of per ipheral neuropathy to his left lower extremity since 2006. The patient reports that he developed an acute onset of shortness of breath, was diaphoretic and felt disconnected last evening around 8 PM. The patient's was concerned and called EMS. According to the patient's record when EMS arrived on scene the patient's oxygen saturations were in the 80s and he was placed on CPAP support. Also on arrival of EMS the patient was noted to be in atrial fibrillation. The patient denies any complaints of fever, chills, nausea, vomiting, chest pain or pressure, presyncope or syncope. He does report that his shortness of breath was worse while laying flat and somewhat relieved when sitting up. A chest x- ray was completed in the emergency department which showed pulmonary edema and small pleural effusions. He also underwent a CTA of his chest which demonstrated no evidence of pulmonary embolism, cardiomegaly with pleural effusions and interstitial edema suggestive of congestive heart failure. A CT of his abdomen/pelvis was also completed which showed evidence for some mild small bowel ileus without evidence for mechanical bowel obstruction. A 12-lead EKG was completed which was completed in the emergency department showed sinus rhythm with nonspecific ST and T wave abnormalities. Due to the above-mentioned symptoms the patient was admitted to the hospital for further evaluation and workup. Overnight the patient reports that he developed some left hand weakness and inability to open his hand which is a new development. A computed tomography scan of his brain was completed which showed a small lacunar infarct of the anterior right internal capsule which appeared old, a 2 cm hypodensity in the posterior right occipital lobe consistent with old infarct, and a 3 cm corti shital hypodensity right parietal lobe consistent with old infarct. Laboratory results in the emergency department showed a WBC count of 13.2, hemoglobin 15.5, hematocrit 49.8, platelets 168, a d-dimer 4.60, BUN 21, creatinine 1.15, glucose 270, plasma lactic acid 7.6, proBNP level 5780 and a troponin of 0.509. His troponin did go as high as 6.140. Due to the patient's presenting symptoms and positive troponins Dr. Raza from cardiology was consulted. The patient underwent a 2-D echocardiogram which showed an overall left ventricular systolic function to be severely impaired with an ejection fraction between 20 and 25%, mild aortic valve regurgitation, moderate mitral valve regurgitation, mild tricuspid valve regurgitation and a possible thrombus in the LV apex. The patient also underwent a bilateral coronary angiography with right radial approach which demonstrated a 50% distal left main stenosis, a 70% stenosis to his mid left anterior descending coronary artery, and 80% stenosis to his first diagonal coronary artery branch, a subtotally occluded ramus to its midportion, a 50% stenosis to his circumflex coronary artery and a totally occluded mid right coronary artery. Subsequently, due to the findings on the cardiac catheterization and 2-D echocardiogram a consult was placed to Dr. Oliver Gleason from cardiothoracic surgery for further evaluation and treatment recommendat ions. Currently the patient denies any complaints of shortness of breath and reports that he is feeling somewhat better than he did on admission. He was given Lasix 60 mg with good urine output and is currently on 2 L nasal cannula with oxygen saturations 95%. Review of Systems A 14 point review of systems was completed was negative except as mentioned in the HPI. Past Medical History Past Medical History: Vascular Disorder Additional Past Medical History / Comment(s): Aortobifemoral repair in 2004, peripheral neuropathy to his left lower extremity since 2006 History of Any Multi-Drug Resistant Organisms: None Reported Past Surgical History: Tonsillectomy Additional Past Surgical History / Comment(s): Aortobifemoral bypass repair 2004 Past Anesthesia/Blood Transfusion Reactions: No Reported Reaction Past Psychological History: No Psychological Hx Reported Smoking Status: Current some day smoker Past Alcohol Use History: None Reported Past Drug Use History: None Reported - Past Family History family Family Medical History: No Reported History Mother Family Medical History: COPD Father Additional Family Medical History / Comment(s): from Brain aneurysm Medications and Allergies Home Medications Medication Instructions Recorded Confirmed Type Fish Oil/Dha/Epa [Fish Oil 1,200 1 cap PO DAILY 03/29/20 03/29/20 History mg Fish Oil] Allergies Allergy/AdvReac Type Severity Reaction Status Date / Time Tetracyclines Allergy Unknown Verified 03/29/20 22:56 Surgical - Exam Vital Signs Pulse Resp BP Pulse Ox 144 H 28 H 220/126 90 L 03/29/20 21:15 03/29/20 21:15 03/29/20 21:15 03/29/20 21:15 - General well developed, well nourished, no distress, no pain - Eyes PERRL, normal ocular movement - ENT normal pinna, normal nares, normal mucosa, no hearing loss, no congestion, poor residential - Neck No lymphadenopathy no masses, no bruits, trachea midline, no venous distension - Respiratory Lung sounds essentially clear to his bilateral upper lobes, few scattered crackles to his bilateral bases. No wheezes or rhonchi. Respirations are symmetrical and nonlabored. Oxygen saturation is 95% on 2 L nasal cannula. - Cardiovascular Regular rhythm and rate. S1 and S2 present, negative for S3, gallop or murmur. No edema present. Bedside telemetry showing normal sinus rhythm heart rate 86 BPM. - Abdomen Abdomen is soft, nontender and nondistended. Active bowel sounds present in all 4 abdominal quadrants. No guarding or rigidity. No organomegaly appreciated. - Genitourinary Clemens catheter in place for accurate I&O. - Rectum Deferred - Integumentary Skin is warm and dry. No clubbing or cyanosis is present. no rash, no growths, no abnormal pigmentation - Neurologic Left hand weakness. Alert and oriented 3. - Psychiatric oriented to time, oriented to person, oriented to place, speech is normal, memory intact Results - Labs 03/30/20 03:10 03/30/20 03:10 Abnormal Lab Results - Last 24 Hours (Table) 03/29/20 03/29/20 03/29/20 Range/Units 21:28 21:28 21:28 WBC 13.2 H (3.8-10.6) k/uL Neutrophils # 8.6 H (1.3-7.7) k/uL Lymphocytes # (1.0-4.8) k/uL APTT (22.0-30.0) sec D-Dimer 4.60 H (<0.60) mg/L FEU Chloride 110 H (98-107) mmol/L Carbon Dioxide 15 L (22-30) mmol/L BUN 21 H (9-20) mg/dL Glucose 270 H (74-99) mg/dL POC Glucose (mg/dL) (75-99) mg/dL Plasma Lactic Acid Abdiel (0.7-2.0) mmol/L Troponin I (0.000-0.034) ng/mL Cholesterol (<200) mg/dL LDL Cholesterol, Calc (0-99) mg/dL 03/29/20 03/29/20 03/29/20 Range/Units 21:28 21:28 21:32 WBC (3.8-10.6) k/uL Neutrophils # (1.3-7.7) k/uL Lymphocytes # (1.0-4.8) k/uL APTT (22.0-30.0) sec D-Dimer (<0.60) mg/L FEU Chloride (98-107) mmol/L Carbon Dioxide (22-30) mmol/L BUN (9-20) mg/dL Glucose (74-99) mg/dL POC Glucose (mg/dL) 337 H (75-99) mg/dL Plasma Lactic Acid Abdiel 7.6 H* (0.7-2.0) mmol/L Troponin I 0.509 H* (0.000-0.034) ng/mL Cholesterol (<200) mg/dL LDL Cholesterol, Calc (0-99) mg/dL 03/30/20 03/30/20 03/30/20 Range/Units 00:37 01:43 02:12 WBC (3.8-10.6) k/uL Neutrophils # (1.3-7.7) k/uL Lymphocytes # (1.0-4.8) k/uL APTT (22.0-30.0) sec D-Dimer (<0.60) mg/L FEU Chloride (98-107) mmol/L Carbon Dioxide (22-30) mmol/L BUN (9-20) mg/dL Glucose (74-99) mg/dL POC Glucose (mg/dL) 116 H (75-99) mg/dL Plasma Lactic Acid Abdiel 3.1 H* (0.7-2.0) mmol/L Troponin I 1.840 H* (0.000-0.034) ng/mL Cholesterol (<200) mg/dL LDL Cholesterol, Calc (0-99) mg/dL 03/30/20 03/30/20 03/30/20 Range/Units 03:10 03:10 03:10 WBC 17.1 H (3.8-10.6) k/uL Neutrophils # 15.3 H (1.3-7.7) k/uL Lymphocytes # 0.8 L (1.0-4.8) k/uL APTT (22.0-30.0) sec D-Dimer (<0.60) mg/L FEU Chloride 110 H (98-107) mmol/L Carbon Dioxide 20 L (22-30) mmol/L BUN 25 H (9-20) mg/dL Glucose 121 H (74-99) mg/dL POC Glucose (mg/dL) (75-99) mg/dL Plasma Lactic Acid Abdiel (0.7-2.0) mmol/L Troponin I 3.210 H* (0.000-0.034) ng/mL Cholesterol 243 H (<200) mg/dL LDL Cholesterol, Calc 185 H (0-99) mg/dL 03/30/20 03/30/20 03/30/20 Range/Units 04:26 05:57 06:36 WBC (3.8-10.6) k/uL Neutrophils # (1.3-7.7) k/uL Lymphocytes # (1.0-4.8) k/uL APTT 41.9 H (22.0-30.0) sec D-Dimer (<0.60) mg/L FEU Chloride (98-107) mmol/L Carbon Dioxide (22-30) mmol/L BUN (9-20) mg/dL Glucose (74-99) mg/dL POC Glucose (mg/dL) 110 H (75-99) mg/dL Plasma Lactic Acid Abdiel (0.7-2.0) mmol/L Troponin I 6.140 H* (0.000-0.034) ng/mL Cholesterol (<200) mg/dL LDL Cholesterol, Calc (0-99) mg/dL 03/30/20 03/30/20 Range/Units 10:48 12:20 WBC (3.8-10.6) k/uL Neutrophils # (1.3-7.7) k/uL Lymphocytes # (1.0-4.8) k/uL APTT 52.5 H (22.0-30.0) sec D-Dimer (<0.60) mg/L FEU Chloride (98-107) mmol/L Carbon Dioxide (22-30) mmol/L BUN (9-20) mg/dL Glucose (74-99) mg/dL POC Glucose (mg/dL) 113 H (75-99) mg/dL Plasma Lactic Acid Abdiel (0.7-2.0) mmol/L Troponin I (0.000-0.034) ng/mL Cholesterol (<200) mg/dL LDL Cholesterol, Calc (0-99) mg/dL Diabetes panel 03/29/20 03/30/20 03/30/20 Range/Units 21:28 03:10 04:26 Sodium 140 139 (137-145) mmol/L Potassium 4.7 4.4 (3.5-5.1) mmol/L Chloride 110 H 110 H (98-107) mmol/L Carbon Dioxide 15 L 20 L (22-30) mmol/L BUN 21 H 25 H (9-20) mg/dL Creatinine 1.15 1.00 (0.66-1.25) mg/dL Glucose 270 H 121 H (74-99) mg/dL Hemoglobin A1c 5.5 (4.0-6.0) % Calcium 9.0 8.8 (8.4-10.2) mg/dL AST 59 (17-59) U/L ALT 38 (4-49) U/L Alkaline Phosphatase 78 (38-126) U/L Total Protein 6.9 (6.3-8.2) g/dL Albumin 4.2 (3.5-5.0) g/dL Triglycerides 67 (<150) mg/dL HDL Cholesterol 45 (40-60) mg/dL Calcium panel 03/29/20 03/30/20 Range/Units 21:28 03:10 Calcium 9.0 8.8 (8.4-10.2) mg/dL Albumin 4.2 (3.5-5.0) g/dL Pituitary panel 03/29/20 03/30/20 Range/Units 21:28 03:10 Sodium 140 139 (137-145) mmol/L Potassium 4.7 4.4 (3.5-5.1) mmol/L Chloride 110 H 110 H (98-107) mmol/L Carbon Dioxide 15 L 20 L (22-30) mmol/L BUN 21 H 25 H (9-20) mg/dL Creatinine 1.15 1.00 (0.66-1.25) mg/dL Glucose 270 H 121 H (74-99) mg/dL Calcium 9.0 8.8 (8.4-10.2) mg/dL Adrenal panel 03/29/20 03/30/20 Range/Units 21:28 03:10 Sodium 140 139 (137-145) mmol/L Potassium 4.7 4.4 (3.5-5.1) mmol/L Chloride 110 H 110 H (98-107) mmol/L Carbon Dioxide 15 L 20 L (22-30) mmol/L BUN 21 H 25 H (9-20) mg/dL Creatinine 1.15 1.00 (0.66-1.25) mg/dL Glucose 270 H 121 H (74-99) mg/dL Calcium 9.0 8.8 (8.4-10.2) mg/dL Total Bilirubin 0.6 (0.2-1.3) mg/dL AST 59 (17-59) U/L ALT 38 (4-49) U/L Alkaline Phosphatase 78 (38-126) U/L Total Protein 6.9 (6.3-8.2) g/dL Albumin 4.2 (3.5-5.0) g/dL - Imaging Chest x-ray: report reviewed, image reviewed CT scan - abdomen: report reviewed, image reviewed CT scan - chest: report reviewed, image reviewed CT scan - pelvis: report reviewed, image reviewed EKG: image reviewed Additional studies: 2-D echocardiogram results reviewed and cardiac catheterization results reviewed by Dr. Oliver Gleason. Assessment and Plan Assessment: 1. Multivessel coronary artery disease 2. Ischemic cardiomyopathy with ejection fraction of 20% 3. Left ventricular thrombus 4. Moderate mitral valve regurgitation 5. Acute ischemic stroke stroke, acute left hand weakness and numbness 6. Paroxysmal atrial fibrillation 7. Acute non-ST elevated myocardial infarction this admission 8. Hypertension 9. Hyperlipidemia 10. Chronic ongoing tobacco dependence 11. History of peripheral arterial disease, status post aortobifemoral bypass in 2004 Plan: The patient was seen and examined at his bedside in the intensive care unit. His chart and diagnostics reviewed. The patient was seen and examined by Dr. Oliver Gleason from cardiothoracic surgery. A 2-D echocardiogram films and cardiac catheterization films were reviewed with the patient. At this time due to the findings of possible thrombus in the left ventricle a transesophageal echocardiogram is recommended for further evaluation. Continue on heparin drip for anticoagulation. Preoperative testing has been initiated including a carotid duplex study. The importance of smoking cessation was discussed with the patient. Continue to optimize the patient with medical management with aspirin, statin and beta mona. Cardiology recommendations per Dr. Raza. Medical management and other comorbidities per primary care service. At this time due to the patient's acute stroke the patient would be considered high risk surgical candidate. We will continue to follow the patient and await his transesophageal echocardiogram results with more recommendations to follow based on patient's clinical course. Thank you Dr. Raza for this consult and will look for to working with you in the care of this patient. Time with Patient: Greater than 30
[2020-03-30] MEDS: HEPARIN SOD,PORK IN 0.45% NACL 25,000 UNIT in 0.45% NACL 1 250ML.BAG IV SCH (20:10)
[2020-03-30 22:42] LABS: Appearance,Urine Clear (Clear); Bacteria,Urine Rare /hpf; Bilirubin,Urine Negative (Negative); Blood,Urine Moderate (Negative); Color,Urine Yellow; Glucose,Urine (UA) Negative (Negative); Ketones,Urine Negative (Negative); Leukocyte Esterase,Urine Moderate (Negative); Mucus,Urine Occasional /hpf; Nitrite,Urine Negative (Negative); PH, Urine 5.5 (5.0-8.0); Protein,Urine Trace (Negative); RBC,Urine 86 /hpf (0-5); Squamous Epithelial Cell,Urine <1 /hpf (0-4); Urobilinogen,Urine <2.0 mg/dL (<2.0); WBC,Urine 11 /hpf (0-5)
[2020-03-30 22:53] LABS: Specific Gravity,Urine >1.050 (1.001-1.035)
[2020-03-31 01:51] LABS: Hepatitis A Antibody IgM Non-Reactive (Non-Reactive); Hepatitis B Core IgM Non-Reactive (Non-Reactive); Hepatitis B Surface Antigen Non-Reactive (Non-Reactive); Hepatitis C IgG Antibody Non-Reactive (Non-Reactive)
[2020-03-31 02:07] LABS: Glucose,Whole Blood 129 mg/dL (75-99)
[2020-03-31 05:19] LABS: Basophils # (A) 0.1 k/uL (0-0.2); Basophils % (A) 1 %; Eosinophils # (A) 0.3 k/uL (0-0.7); Eosinophils % (A) 3 %; HCT 39.6 % (39.0-53.0); Lymphocytes # (A) 1.7 k/uL (1.0-4.8); Lymphocytes % (A) 17 %; MCH 29.6 pg (25.0-35.0); MCHC 32.7 g/dL (31.0-37.0); MCV 90.4 fL (80.0-100.0); Monocytes # (A) 0.6 k/uL (0-1.0); Monocytes % (A) 6 %; Neutrophils % (A) 71 %; Platelet Count 138 k/uL (150-450); RBC 4.39 m/uL (4.30-5.90); RDW 14.6 % (11.5-15.5); WBC 9.8 k/uL (3.8-10.6)
[2020-03-31 05:43] LABS: Partial Thromboplastin Time 44.2 sec (22.0-30.0); Prothrombin Time 10.4 sec (9.0-12.0)
[2020-03-31 05:52] LABS: ALT 41 U/L (4-49); AST 56 U/L (17-59); African American GFR (CKD) >90 (>60 ml/min/1.73 sqM); Albumin 3.3 g/dL (3.5-5.0); Alkaline Phosphatase 62 U/L (38-126); Anion Gap 6 mmol/L; Blood Urea Nitrogen 24 mg/dL (9-20); Calcium 8.6 mg/dL (8.4-10.2); Carbon Dioxide 19 mmol/L (22-30); Chloride 110 mmol/L (98-107); Glucose 91 mg/dL (74-99); Magnesium 1.9 mg/dL (1.6-2.3); Non-African American GFR(CKD) >90 (>60 ml/min/1.73 sqM); Phosphorus 2.6 mg/dL (2.5-4.5); Potassium 4.3 mmol/L (3.5-5.1); Sodium 135 mmol/L (137-145); Total Bilirubin 0.6 mg/dL (0.2-1.3); Total Protein 5.8 g/dL (6.3-8.2)
[2020-03-31] MEDS: carvediloL 6.25 MG TAB PO SCH ×2 (06:45→16:59)
[2020-03-31] MEDS: ASPIRIN 325 MG TAB PO SCH (09:42)
--- NOTE | 2020-03-31 09:53 | P.PN ---
Subjective Progress Note Date: 03/31/20 Principal diagnosis: Multivessel coronary artery disease, ischemic cardiomyopathy with an ejection fraction of 20%, left ventricular thrombus, moderate mitral valve regurgitation, acute ischemic stroke, acute left hand numbness and weakness and hyperparesia left lower extremity, paroxysmal atrial fibrillation, acute non-ST elevated myocardial infarction, hypertension and hyperlipidemia. Past medical history significant for peripheral arterial disease and is status post aortobifemoral bypass in 2004, chronic ongoing tobacco abuse smokes about three quarters of a pack of cigarettes daily and history of peripheral neuropathy to his left lower extremity since 2006. The patient was seen in follow-up today 03/31/2020 at his bedside in the intensive care unit. The patient is laying in bed, is awake, alert and oriented 3 and is in no acute distress. Currently denies any complaints of shortness of breath or pain. He remains hemodynamically stable and is currently on no inotropic or pressor support. Heparin drip is in place per protocol for anticoagulation. A cardiac catheterization was completed yesterday which demonstrated a 50% distal left main stenosis, a 70% stenosis to his mid left anterior descending coronary artery, and 80% stenosis to his first diagonal coronary artery branch, a subtotally occluded ramus to its midportion, a 50% stenosis to his circumflex coronary artery and a totally occluded mid right coronary artery. He also underwent a 2-D echocardiogram which showed an overall left ventricular systolic function to be severely impaired with an ejection fraction between 20 and 25%, mild aortic valve regurgitation, moderate mitral valve regurgitation, mild tricuspid valve regurgitation and a possible thrombus in the LV apex. Oxygen saturation is are 95% on 2 L nasal cannula and he is achieving 2500 mL on his incentive spirometry. A bedside FEV1 was completed which showed a predicted value of 31%. Objective - Vital Signs Vital signs: Vital Signs Temp 97.9 F 03/31/20 04:00 Pulse 94 03/31/20 09:00 Resp 28 H 03/31/20 09:00 BP 122/71 03/31/20 09:00 Pulse Ox 95 03/31/20 09:00 Intake & Output 03/30/20 03/31/20 03/31/20 18:59 06:59 18:59 Intake Total 864.905 751.663 60 Output Total 680 470 105 Balance 184.905 281.663 -45 Weight 80.5 kg Intake: IV 770 580 60 KVO 170 100 60 Sodium Chloride 0.9% 1, 400 480 000 ml In Empty Bag 1 bag @ 1 ML/KG/HR 80.377 mls/ hr IV .[id number] ONE Rx#: [id number] Intake, IV Titration 94.905 71.663 Amount Heparin Sod,Pork in 0.45% 94.905 71.663 NaCl 25,000 unit In 0.45 % NaCl 1 250ml.bag @ 12 UNITS/KG/HR 9.961 mls/hr IV .Q24H [facility] Rx#: [id number] Oral 100 Output: Urine 680 470 105 Other: Voiding Method Indwelling Catheter Indwelling Catheter - Constitutional General appearance: Present: average body habitus, cooperative, no acute distress - EENT Eyes: Present: PERRLA, poor dentition, normal appearance. Absent: scleral icterus ENT: Present: hearing grossly normal - Neck Details: Neck is supple, no JVD. - Respiratory Details: Lung sounds essentially clear throughout, few scattered crackles to his bilateral bases. Respirations are symmetrical and nonlabored. Oxygen saturation are 95% on 2 L nasal cannula. Achieving 2500 mL on his incentive spirometry. A bedside FEV1 was completed yesterday which showed a predicted value of 31%. - Cardiovascular Details: Regular rhythm and rate. S1 and S2 present, negative for S3, gallop or murmur. No edema present. Bedside telemetry showing normal sinus rhythm heart rate 80 BPM. - Gastrointestinal Gastrointestinal Comment(s): Abdomen is soft, nontender and nondistended. Active bowel sounds present in all 4 abdominal quadrants. No guarding or rigidity. No organomegaly appreciated. - Genitourinary Genitourinary Comment(s): Clemens catheter for accurate I&O. 475 mL output the last 8 hours of clear yellow urine. - Integumentary Integumentary Comment(s): Skin is warm and dry. No clubbing or cyanosis is present. No rash or abnormal pigmentation is present. - Neurologic Neurologic Comment(s): Left hand weakness and left lower extremity hyperparesia. Alert and oriented 3. - Musculoskeletal Musculoskeletal: Present: left sided weakness (Left hand) - Psychiatric Psychiatric: Present: A&O x's 3, appropriate affect, intact judgment & insight - Allied health notes Allied health notes reviewed: nursing (Carotid duplex study results reviewed.) - Labs CBC & Chem 7: 03/31/20 04:59 03/31/20 04:59 Labs: Abnormal Lab Results - Last 24 Hours (Table) 03/30/20 03/30/20 03/30/20 Range/Units 10:48 12:18 12:20 Plt Count (150-450) k/uL APTT 52.5 H (22.0-30.0) sec Sodium (137-145) mmol/L Chloride (98-107) mmol/L Carbon Dioxide (22-30) mmol/L BUN (9-20) mg/dL POC Glucose (mg/dL) 113 H (75-99) mg/dL Total Protein (6.3-8.2) g/dL Albumin (3.5-5.0) g/dL Ur Specific [place] >1.050 H (1.001-1.035) Urine Protein Trace H (Negative) Urine Blood Moderate H (Negative) Ur Leukocyte Esterase Moderate H (Negative) Urine RBC 86 H (0-5) /hpf Urine WBC 11 H (0-5) /hpf Urine Bacteria Rare H (None) /hpf Urine Mucus Occasional H (None) /hpf 03/30/20 03/30/20 03/31/20 Range/Units 19:59 20:42 04:59 Plt Count 138 L (150-450) k/uL APTT 45.0 H (22.0-30.0) sec Sodium (137-145) mmol/L Chloride (98-107) mmol/L Carbon Dioxide (22-30) mmol/L BUN (9-20) mg/dL POC Glucose (mg/dL) 129 H (75-99) mg/dL Total Protein (6.3-8.2) g/dL Albumin (3.5-5.0) g/dL Ur Specific [place] (1.001-1.035) Urine Protein (Negative) Urine Blood (Negative) Ur Leukocyte Esterase (Negative) Urine RBC (0-5) /hpf Urine WBC (0-5) /hpf Urine Bacteria (None) /hpf Urine Mucus (None) /hpf 03/31/20 03/31/20 Range/Units 04:59 04:59 Plt Count (150-450) k/uL APTT 44.2 H (22.0-30.0) sec Sodium 135 L (137-145) mmol/L Chloride 110 H (98-107) mmol/L Carbon Dioxide 19 L (22-30) mmol/L BUN 24 H (9-20) mg/dL POC Glucose (mg/dL) (75-99) mg/dL Total Protein 5.8 L (6.3-8.2) g/dL Albumin 3.3 L (3.5-5.0) g/dL Ur Specific [place] (1.001-1.035) Urine Protein (Negative) Urine Blood (Negative) Ur Leukocyte Esterase (Negative) Urine RBC (0-5) /hpf Urine WBC (0-5) /hpf Urine Bacteria (None) /hpf Urine Mucus (None) /hpf Microbiology - Last 24 Hours (Table) 03/30/20 16:00 Nasal Screen MRSA/MSSA - Preliminary Nasal Swab Assessment and Plan Assessment: 1. Multivessel coronary artery disease 2. Ischemic cardiomyopathy with ejection fraction of 20% 3. Left ventricular thrombus 4. Moderate mitral valve regurgitation 5. Acute ischemic stroke stroke, acute left hand weakness and numbness 6. Paroxysmal atrial fibrillation 7. Acute non-ST elevated myocardial infarction this admission 8. Hypertension 9. Hyperlipidemia 10. Chronic ongoing tobacco dependence 11. History of peripheral arterial disease, status post aortobifemoral bypass in 2004 Plan: 1. Continue to optimize medical management with aspirin, statin and beta mona. 2. Continue heparin drip per protocol managed by cardiology. 3. Encourage use of his incentive spirometry 10 times every hour while awake. 4. Recommend transesophageal echocardiogram to evaluate left ventricular thrombus. 5. Medical management and other comorbidities per primary care service. 6. Continue to encourage and discussed the importance of smoking cessation. 7. Due to the patient's acute stroke he would be considered a high risk surgi shital candidate, we will continue to follow. 8. More recommendations to follow based on patient's clinical course. Time with Patient: Greater than 30
--- NOTE | 2020-03-31 12:02 | P.PN ---
Subjective Progress Note Date: 03/31/20 Principal diagnosis: Non-ST segment elevation myocardial infarction, acute exacerbation of systolic congestive heart failure, atrial fibrillation, CVA This is a very pleasant 64-year-old gentleman who has a history of abdominal aortic aneurysm status post repair in 2004, chronic and ongoing tobacco dependence. He is today he developed an acute onset of shortness of breath and EMS was called. He is found to be cool diaphoretic and pale and original O2 saturations were in the mid 80s. Nonrebreather was tried. He eventually needed CPAP on transfer to the hospital. He was found to be in atrial fibrillation with a rapid ventricular response. Here in the emergency department he was in sinus tachycardia. CT angiogram of the chest revealed no evidence of pulmonary embolism. There is some cardiomegaly with pleural effusion and interstitial edema suggestive of congestive heart failure. CT of the abdomen revealed some mild small bowel ileus but no mechanical bowel obstruction. D-dimer 4.60. Peak troponin 6.14. He was a non-ST segment elevation myocardial infarction admitted to the intensive care unit for the same. The plan is for possible cardiac catheterization today however during the night the patient developed left hand weakness and numbness along with some left lower extremity hyper previous. Computed tomography scan of the brain revealed no acute infarct. He is seen today in consultation in the ICU. He's presently awake and alert in no acute di stress. He is maintaining good O2 saturations in the 90s on 2 L/m per nasal cannula. He is on a heparin drip. 0.9 normal saline at KVO. Chest x-ray continues to show some evidence of fluid volume overload. He is given Lasix 60 mg IVP 1. White count 17.1. Hemoglobin 14.3. INR 1.0. Sodium 139. Potassium 4.4. Bicarb 20. Creatinine 1.0. ProBNP 5780. The patient is seen today 03/31/2020 in follow-up in the intensive care unit. He is currently awake and alert in no acute distress. He is having ongoing issues with left upper extremity weakness more so on his left hand as well as left lower extremity hypersensitivity. He was felt to have an acute ischemic stroke probably in 2 different anatomic locations. Patient's left hand motor weakness and left extremity paresthesias from 2 separate strokes involving the right MCA vascular territory. He was found to have paroxysmal atrial fibrillation. Echocardiogram revealed evidence of a possible left ventricular apical clot. He did undergo cardiac catheterization yesterday that revealed multivessel coronary artery disease disease including a distal left main 50% stenosis, 70% hazy LAD stenosis suspected as a culprit lesion, 80% diagonal 1 stenosis, 100% ramus stenosis, 50% circumflex stenosis and a sub-total occlusion of the OM1 and OM 2. Severe ischemic cardiomyopathy with ejection fraction of 20%. Left ventricular thrombus. CABG was recommended. Carotid Dopplers revealed no significant hemodynamic stenosis. White count 9.8. Hemoglobin 13.0. Sodium 135. Potassium 4.3. Creatinine 0.88. He remains on a heparin drip. Objective - Vital Signs Vital signs: Vital Signs Temp 97.9 F 03/31/20 04:00 Pulse 59 L 03/31/20 11:00 Resp 18 03/31/20 11:00 BP 109/84 03/31/20 11:00 Pulse Ox 96 03/31/20 11:00 Intake & Output 03/30/20 03/31/20 03/31/20 18:59 06:59 18:59 Intake Total 864.905 751.663 80 Output Total 680 470 165 Balance 184.905 281.663 -85 Weight 80.5 kg Intake: IV 770 580 80 KVO 170 100 80 Sodium Chloride 0.9% 1, 400 480 000 ml In Empty Bag 1 bag @ 1 ML/KG/HR 80.377 mls/ hr IV .[id number] [facility] Rx#: [id number] Intake, IV Titration 94.905 71.663 Amount Heparin Sod,Pork in 0.45% 94.905 71.663 NaCl 25,000 unit In 0.45 % NaCl 1 250ml.bag @ 12 UNITS/KG/HR 9.961 mls/hr IV .Q24H [facility] Rx#: [id number] Oral 100 Output: Urine 680 470 165 Other: Voiding Method Indwelling Catheter Indwelling Catheter Indwelling Catheter - Exam GENERAL EXAM: Alert, pleasant 64-year-old gentleman, on 2 L nasal cannula, comfortable in no apparent distress. HEAD: Normocephalic. EYES: Normal reaction of pupils, equal size. NOSE: Clear with pink turbinates. THROAT: No erythema or exudates. NECK: No masses, no JVD. CHEST: No chest wall deformity. LUNGS: Equal air entry with faint crackles in the posterior bases. CVS: S1 and S2 normal with no audible murmur, regular rhythm. ABDOMEN: No hepatosplenomegaly, normal bowel sounds, no guarding or rigidity. SPINE: No scoliosis or deformity SKIN: No rashes CENTRAL NERVOUS SYSTEM: Left hand weakness and numbness, left lower extremity hyperparesia, tone is normal in all 4 extremities. EXTREMITIES: There is no peripheral edema. No clubbing, no cyanosis. Peripheral pulses are intact. - Labs CBC & Chem 7: 03/31/20 04:59 03/31/20 04:59 Labs: Abnormal Lab Results - Last 24 Hours (Table) 03/30/20 03/30/20 03/30/20 Range/Units 12:18 12:20 19:59 Plt Count (150-450) k/uL APTT (22.0-30.0) sec Sodium (137-145) mmol/L Chloride (98-107) mmol/L Carbon Dioxide (22-30) mmol/L BUN (9-20) mg/dL POC Glucose (mg/dL) 113 H 129 H (75-99) mg/dL Total Protein (6.3-8.2) g/dL Albumin (3.5-5.0) g/dL Ur Specific [place] >1.050 H (1.001-1.035) Urine Protein Trace H (Negative) Urine Blood Moderate H (Negative) Ur Leukocyte Esterase Moderate H (Negative) Urine RBC 86 H (0-5) /hpf Urine WBC 11 H (0-5) /hpf Urine Bacteria Rare H (None) /hpf Urine Mucus Occasional H (None) /hpf 03/30/20 03/31/20 03/31/20 Range/Units 20:42 04:59 04:59 Plt Count 138 L (150-450) k/uL APTT 45.0 H 44.2 H (22.0-30.0) sec Sodium (137-145) mmol/L Chloride (98-107) mmol/L Carbon Dioxide (22-30) mmol/L BUN (9-20) mg/dL POC Glucose (mg/dL) (75-99) mg/dL Total Protein (6.3-8.2) g/dL Albumin (3.5-5.0) g/dL Ur Specific [place] (1.001-1.035) Urine Protein (Negative) Urine Blood (Negative) Ur Leukocyte Esterase (Negative) Urine RBC (0-5) /hpf Urine WBC (0-5) /hpf Urine Bacteria (None) /hpf Urine Mucus (None) /hpf 03/31/20 Range/Units 04:59 Plt Count (150-450) k/uL APTT (22.0-30.0) sec Sodium 135 L (137-145) mmol/L Chloride 110 H (98-107) mmol/L Carbon Dioxide 19 L (22-30) mmol/L BUN 24 H (9-20) mg/dL POC Glucose (mg/dL) (75-99) mg/dL Total Protein 5.8 L (6.3-8.2) g/dL Albumin 3.3 L (3.5-5.0) g/dL Ur Specific [place] (1.001-1.035) Urine Protein (Negative) Urine Blood (Negative) Ur Leukocyte Esterase (Negative) Urine RBC (0-5) /hpf Urine WBC (0-5) /hpf Urine Bacteria (None) /hpf Urine Mucus (None) /hpf Microbiology - Last 24 Hours (Table) 03/30/20 12:18 Urine Culture - Preliminary Urine,Voided 03/30/20 16:00 Nasal Screen MRSA/MSSA - Preliminary Nasal Swab Assessment and Plan Assessment: Acute hypoxemic respiratory failure secondary to acute exacerbation of systolic congestive heart failure, severe impaired left ventricular systolic function with ejection fraction 20-25%. Thrombus in the LV apex. Paroxysmal atrial fibrillation and hypertension and non-ST segment elevation myocardial infarction. Non-ST segment elevation myocardial infarction, on a heparin drip. Found to have significant coronary artery disease, revascularization once stable as recommended Brief episode of atrial fibrillation according to EMS, currently sinus rhythm Hypertension Left hand weakness and numbness with left lower extremity hyperparesia, computed tomography scan of the brain revealed no acute infarct Chronic and ongoing tobacco dependence History of abdominal aortic aneurysm, status post repair in 2004 Plan: The patient was seen and evaluated by Dr. Curtis Patient was found to have significant coronary artery disease Severe impaired left ventricular systolic function Left ventricular apical clot Acute ischemic stroke in 2 separate locations Remains on a heparin drip Neurology and CT services have been consulted Educated regarding the importance of complete smoking cessation We will continue to follow and make further recommendations based on his clinical status I, the cosigning physician, performed a history & physical examination of the patient. Lungs sounds with faint crackles in the bilateral posterior bases. Maintaining good O2 saturations in the 90s on 2 L/m per nasal cannula. I discussed the assessment and plan of care with my nurse practitioner, Kaycee Churchill. I attest to the above note as dictated by her.
--- NOTE | 2020-03-31 14:24 | P.PN ---
Subjective Progress Note Date: 03/30/20 Principal diagnosis: NSTEMI with Multivessel CAD Patient seen and examined at bedside. Patient just returned from a cardiac cath where multiple vessel coronary artery disease was identified. Patient is to be assessed by cardiothoracic surgery for a CABG. patient is resting comfortably denies chest pain, shortness of breath, nausea, vomiting, fevers, chills, diarrhea, or constipation. Objective - Vital Signs Vital signs: Vital Signs Temp 98.0 F 03/30/20 12:00 Pulse 77 03/30/20 15:00 Resp 72 H 03/30/20 15:00 BP 105/75 03/30/20 15:00 Pulse Ox 95 03/30/20 15:00 Intake & Output 03/29/20 03/30/20 03/30/20 18:59 06:59 18:59 Intake Total 161.48 544.905 Output Total 2385 545 Balance -2223.52 -0.095 Weight 80.377 kg Intake: IV 40 450 KVO 40 170 Sodium Chloride 0.9% 1, 80 000 ml In Empty Bag 1 bag @ 1 ML/KG/HR 80.377 mls/ hr IV .[id number] [facility] Rx#: [id number] Intake, IV Titration 121.48 94.905 Amount Heparin Sod,Pork in 0.45% 64.58 94.905 NaCl 25,000 unit In 0.45 % NaCl 1 250ml.bag @ 12 UNITS/KG/HR 9.961 mls/hr IV .Q24H [facility] Rx#: [id number] Nitroglycerin-D5w Pmx 50 56.9 mg In Dextrose/Water 1 250ml.bag @ 50 MCG/MIN 15 mls/hr IV .[id number] [facility] Rx#:[id number] Output: Urine 2385 545 Other: Voiding Method Indwelling Catheter Indwelling Catheter - Exam General: [non toxic], [no distress], [appears at stated age] Derm: [warm], [dry] Head: [atraumatic], [normocephalic], [symmetric] Eyes: [EOMI], [no lid lag], [anicteric sclera] Mouth: [no lip lesion], [mucus membranes moist] Cardiovascular: [S1S2 reg], [no murmur], [positive posterior tibial pulse bi lateral], Lungs: [CTA bilateral], [no rhonchi, no rales] , [no accessory muscle use] Abdominal: [soft], [ nontender to palpation], [no guarding], [no appreciable organomegaly] Ext: [no gross muscle atrophy], [no edema], [no contractures] Neuro: [ CN II-XI grossly intact], [no focal neuro deficits] Psych: [Alert], [oriented], [appropriate affect] - Labs CBC & Chem 7: 03/30/20 03:10 03/30/20 03:10 Labs: Abnormal Lab Results - Last 24 Hours (Table) 03/29/20 03/29/20 03/29/20 Range/Units 21:28 21:28 21:28 WBC 13.2 H (3.8-10.6) k/uL Neutrophils # 8.6 H (1.3-7.7) k/uL Lymphocytes # (1.0-4.8) k/uL APTT (22.0-30.0) sec D-Dimer 4.60 H (<0.60) mg/L FEU Chloride 110 H (98-107) mmol/L Carbon Dioxide 15 L (22-30) mmol/L BUN 21 H (9-20) mg/dL Glucose 270 H (74-99) mg/dL POC Glucose (mg/dL) (75-99) mg/dL Plasma Lactic Acid Abdiel (0.7-2.0) mmol/L Troponin I (0.000-0.034) ng/mL Cholesterol (<200) mg/dL LDL Cholesterol, Calc (0-99) mg/dL 03/29/20 03/29/20 03/29/20 Range/Units 21:28 21:28 21:32 WBC (3.8-10.6) k/uL Neutrophils # (1.3-7.7) k/uL Lymphocytes # (1.0-4.8) k/uL APTT (22.0-30.0) sec D-Dimer (<0.60) mg/L FEU Chloride (98-107) mmol/L Carbon Dioxide (22-30) mmol/L BUN (9-20) mg/dL Glucose (74-99) mg/dL POC Glucose (mg/dL) 337 H (75-99) mg/dL Plasma Lactic Acid Abdiel 7.6 H* (0.7-2.0) mmol/L Troponin I 0.509 H* (0.000-0.034) ng/mL Cholesterol (<200) mg/dL LDL Cholesterol, Calc (0-99) mg/dL 03/30/20 03/30/20 03/30/20 Range/Units 00:37 01:43 02:12 WBC (3.8-10.6) k/uL Neutrophils # (1.3-7.7) k/uL Lymphocytes # (1.0-4.8) k/uL APTT (22.0-30.0) sec D-Dimer (<0.60) mg/L FEU Chloride (98-107) mmol/L Carbon Dioxide (22-30) mmol/L BUN (9-20) mg/dL Glucose (74-99) mg/dL POC Glucose (mg/dL) 116 H (75-99) mg/dL Plasma Lactic Acid Abdiel 3.1 H* (0.7-2.0) mmol/L Troponin I 1.840 H* (0.000-0.034) ng/mL Cholesterol (<200) mg/dL LDL Cholesterol, Calc (0-99) mg/dL 03/30/20 03/30/20 03/30/20 Range/Units 03:10 03:10 03:10 WBC 17.1 H (3.8-10.6) k/uL Neutrophils # 15.3 H (1.3-7.7) k/uL Lymphocytes # 0.8 L (1.0-4.8) k/uL APTT (22.0-30.0) sec D-Dimer (<0.60) mg/L FEU Chloride 110 H (98-107) mmol/L Carbon Dioxide 20 L (22-30) mmol/L BUN 25 H (9-20) mg/dL Glucose 121 H (74-99) mg/dL POC Glucose (mg/dL) (75-99) mg/dL Plasma Lactic Acid Abdiel (0.7-2.0) mmol/L Troponin I 3.210 H* (0.000-0.034) ng/mL Cholesterol 243 H (<200) mg/dL LDL Cholesterol, Calc 185 H (0-99) mg/dL 03/30/20 03/30/20 03/30/20 Range/Units 04:26 05:57 06:36 WBC (3.8-10.6) k/uL Neutrophils # (1.3-7.7) k/uL Lymphocytes # (1.0-4.8) k/uL APTT 41.9 H (22.0-30.0) sec D-Dimer (<0.60) mg/L FEU Chloride (98-107) mmol/L Carbon Dioxide (22-30) mmol/L BUN (9-20) mg/dL Glucose (74-99) mg/dL POC Glucose (mg/dL) 110 H (75-99) mg/dL Plasma Lactic Acid Abdiel (0.7-2.0) mmol/L Troponin I 6.140 H* (0.000-0.034) ng/mL Cholesterol (<200) mg/dL LDL Cholesterol, Calc (0-99) mg/dL 03/30/20 03/30/20 Range/Units 10:48 12:20 WBC (3.8-10.6) k/uL Neutrophils # (1.3-7.7) k/uL Lymphocytes # (1.0-4.8) k/uL APTT 52.5 H (22.0-30.0) sec D-Dimer (<0.60) mg/L FEU Chloride (98-107) mmol/L Carbon Dioxide (22-30) mmol/L BUN (9-20) mg/dL Glucose (74-99) mg/dL POC Glucose (mg/dL) 113 H (75-99) mg/dL Plasma Lactic Acid Abdiel (0.7-2.0) mmol/L Troponin I (0.000-0.034) ng/mL Cholesterol (<200) mg/dL LDL Cholesterol, Calc (0-99) mg/dL Assessment and Plan Assessment: 1. NSTEMI secondary to Multivessel coronary artery disease, including distal left main 50% stenosis, 70% hazy LAD stenosis, 80% diagonal 1 stenosis, 100% ramus stenosis, 50% circumflex stenosis and subtotal occlusion of OM1 and OM2. -Continue IV heparin, aspirin , statin, beta mona -Cardiology recommendations appreciated -Cardiothoracic recommendations appreciated 2. Acute systolic heart failure -Ejection fraction of 20-25% with severe global hypokinesis of the left ventricle -Possible thrombus in LV apex -Continue current cardiology management 3. Acute ischemic stroke with left upper extremity weakness Per neurology patient's left hand motor weakness, and left lower leg paresthesias, are probably 2 different ischemic strokes, involving the right MCA vascular territory. Events are highly cardioembolic in nature. -Continue IV heparin -Continue aspirin -Neuro checks 4. Tobacco abuse Smoking cessation counseled 5. GI and DVT prophylaxis 6. A.m. labs
--- NOTE | 2020-03-31 16:03 | P.PN ---
Subjective Progress Note Date: 03/31/20 Principal diagnosis: NSTEMI with Multivessel CAD. Patient seen and examined at bedside. Patient denies chest pain, shortness of breath, nausea, vomiting, fevers, and chills. Cardiothoracic surgery did assess patient and it was determined that patient will wait 2 weeks before any surgical intervention is to be completed. TE E is pending per cardiology. Objective - Vital Signs Vital signs: Vital Signs Temp 97.8 F 03/31/20 12:00 Pulse 75 03/31/20 15:00 Resp 15 03/31/20 15:00 BP 127/88 03/31/20 15:00 Pulse Ox 95 03/31/20 15:00 Intake & Output 03/30/20 03/31/20 03/31/20 18:59 06:59 18:59 Intake Total 864.905 751.663 180 Output Total 680 470 475 Balance 184.905 281.663 -295 Weight 80.5 kg Intake: IV 770 580 180 KVO 170 100 180 Sodium Chloride 0.9% 1, 400 480 000 ml In Empty Bag 1 bag @ 1 ML/KG/HR 80.377 mls/ hr IV .[id number] [facility] Rx#: [id number] Intake, IV Titration 94.905 71.663 Amount Heparin Sod,Pork in 0.45% 94.905 71.663 NaCl 25,000 unit In 0.45 % NaCl 1 250ml.bag @ 12 UNITS/KG/HR 9.961 mls/hr IV .Q24H [facility] Rx#: [id number] Oral 100 Output: Urine 680 470 475 Other: Voiding Method Indwelling Catheter Indwelling Catheter Indwelling Catheter - Exam General: [non toxic], [no distress], [appears at stated age] Derm: [warm], [dry] Head: [atraumatic], [normocephalic], [symmetric] Eyes: [EOMI], [no lid lag], [anicteric sclera] Mouth: [no lip lesion], [mucus membranes moist] Cardiovascular: [S1S2 reg], [no murmur], [positive posterior tibial pulse bilateral], Lungs: [CTA bilateral], [no rhonchi, no rales] , [no accessory muscle use] Abdominal: [soft], [ nontender to palpation], [no guarding], [no appreciable organomegaly] Ext: [no gross muscle atrophy], [no edema], [no contractures] Neuro: [ CN II-XI grossly intact], [no focal neuro deficits] Psych: [Alert], [oriented], [appropriate affect]. - Labs CBC & Chem 7: 03/31/20 04:59 03/31/20 04:59 Labs: Abnormal Lab Results - Last 24 Hours (Table) 03/30/20 03/30/20 03/30/20 Range/Units 12:18 19:59 20:42 Plt Count (150-450) k/uL APTT 45.0 H (22.0-30.0) sec Sodium (137-145) mmol/L Chloride (98-107) mmol/L Carbon Dioxide (22-30) mmol/L BUN (9-20) mg/dL POC Glucose (mg/dL) 129 H (75-99) mg/dL Total Protein (6.3-8.2) g/dL Albumin (3.5-5.0) g/dL Ur Specific [place] >1.050 H (1.001-1.035) Urine Protein Trace H (Negative) Urine Blood Moderate H (Negative) Ur Leukocyte Esterase Moderate H (Negative) Urine RBC 86 H (0-5) /hpf Urine WBC 11 H (0-5) /hpf Urine Bacteria Rare H (None) /hpf Urine Mucus Occasional H (None) /hpf 03/31/20 03/31/20 03/31/20 Range/Units 04:59 04:59 04:59 Plt Count 138 L (150-450) k/uL APTT 44.2 H (22.0-30.0) sec Sodium 135 L (137-145) mmol/L Chloride 110 H (98-107) mmol/L Carbon Dioxide 19 L (22-30) mmol/L BUN 24 H (9-20) mg/dL POC Glucose (mg/dL) (75-99) mg/dL Total Protein 5.8 L (6.3-8.2) g/dL Albumin 3.3 L (3.5-5.0) g/dL Ur Specific [place] (1.001-1.035) Urine Protein (Negative) Urine Blood (Negative) Ur Leukocyte Esterase (Negative) Urine RBC (0-5) /hpf Urine WBC (0-5) /hpf Urine Bacteria (None) /hpf Urine Mucus (None) /hpf Microbiology - Last 24 Hours (Table) 03/30/20 12:18 Urine Culture - Preliminary Urine,Voided 03/30/20 16:00 Nasal Screen MRSA/MSSA - Preliminary Nasal Swab Assessment and Plan Assessment: 1. NSTEMI secondary to Multivessel coronary artery disease, including distal left main 50% stenosis, 70% hazy LAD stenosis, 80% diagonal 1 stenosis, 100% ramus stenosis, 50% circumflex stenosis and subtotal occlusion of OM1 and OM2. -Continue IV heparin, aspirin , statin, beta mona -Cardiology recommendations appreciated -Cardiothoracic recommendations appreciated -Surgical intervention held for 2 weeks 2. Acute systolic heart failure -Ejection fraction of 20-25% with severe global hypokinesis of the left ventricle -Possible thrombus in LV apex, KASSIE per cardiology -Continue current cardiology management 3. Acute ischemic stroke with left upper extremity weakness Per neurology patient's left hand motor weakness, and left lower leg paresthesias, are probably 2 different ischemic strokes, involving the right MCA vascular territory. Events are highly cardioembolic in nature. -Continue IV heparin -Continue aspirin -Neuro checks 4. Tobacco abuse Smoking cessation counseled 5. GI and DVT prophylaxis 6. A.m. labs Time with Patient: Greater than 30
[2020-03-31] MEDS: HEPARIN SOD,PORK IN 0.45% NACL 25,000 UNIT in 0.45% NACL 1 250ML.BAG IV SCH (16:59)
--- NOTE | 2020-03-31 20:01 | P.PN ---
Subjective Progress Note Date: 03/31/20 Principal diagnosis: Non-STEMI HISTORY OF PRESENTING ILLNESS This is a pleasant 64-year-old male past medical history significant for AAA status post replacement and unknown "neuropathy" surgery of his groin area for left leg pain who presents with sudden onset of shortness of breath yesterday. He denies any prior significant medical history such as hypertension, diabetes, hyperlipidemia. He had been in his usual state of health up until yesterday night when he started feeling short of breath and cannot catch his breath. He admits orthopnea and had to sit up and go to the garage to catch his breath. He denies any chest pain or pressure. He finally called EMS and was transported to the hospital. Per report, EMS noted atrial fibrillation however I do not have the EKG to support this. By the time he came to the emergency department he was in sinus rhythm with nonspecific ST and T wave abnormalities. He was placed on a BiPAP with respiratory distress. He had chest x-ray which showed concerns of heart failure or pneumonia. He denies any recent fevers, chills, cough. He denies any chest pain or pressure, nausea or diaphoresis. Unfortunately overnight he developed left hand weakness with inability to open his hand as well as some left lower leg paresthesias. He had a brain CT which showed small lacunar infarcts of the anterior right internal capsule which appeared old. He does smoke tobacco however expresses he will quit. He was noted to be hyperte nsive with initial blood pressure 220s and was placed on Nitroglycerin drip with improvement. He was additionally given Lasix with good urine output and has since been taken off of the BiPAP and able to lie on his back without any orthopnea. Denies any palpitations at home or fluttering in his chest. 03/31/2020 Patient seen and examined. Patient denies any further chest pain. He did undergo left heart catheterization yesterday which showed multivessel disease. He admits to some improvement of his left hand movement. No orthopnea, denies dyspnea. Denies any hematochezia or melena. Vital signs appear stable, no events on telemetry. REVIEW OF SYSTEMS At the time of my exam: CONSTITUTIONAL: Denies fever or chills. CARDIOVASCULAR: Denies chest pain, improved shortness of breath, improved orthopnea, denies PND or palpitations. RESPIRATORY: Denies cough. GASTROINTESTINAL: Denies abdominal pain, diarrhea, constipation, nausea or vomiting. MUSCULOSKELETAL: Denies myalgias. NEUROLOGIC: + numbness, + left upper extremity tingling and weakness ENDOCRINE: Denies fatigue, weight change, polydipsia or polyurina. GENITOURINARY: Denies burning, hematuria or urgency with micturation. HEMATOLOGIC: Denies history of anemia or bleeding. PHYSICAL EXAMINATION Blood pressure 119/85 heart rate 85 afebrile and maintaining oxygen saturation on 2 L nasal cannula. CONSTITUTIONAL: No apparent distress. HEENT: Head is normocephalic. Pupils are equal, round. Sclerae anicteric. Mucous membranes of the mouth are moist. No JVD. No carotid bruit. CHEST EXAMINATION: Lungs are clear to auscultation. No chest wall tenderness is noted on palpation or with deep breathing. HEART EXAMINATION: Regular rate and rhythm. S1, S2 heard. No murmurs, gallops or rub. ABDOMEN: Soft, nontender. Positive bowel sounds. Positive midline surgical scar EXTREMITIES: 2+ peripheral pulses, no lower extremity edema and no calf tenderness. NEUROLOGIC EXAMINATION: Patient is awake, alert and oriented x3. ASSESSMENT 1. Acute systolic heart failure 20-25% 2. Non-STEMI with multivessel disease: Left main 50%, LAD 70%, diagonal one 80%, ramus 100%, circumflex 50%, RCA 100%. 3. Hyperlipidemia 4. Acute stroke with left upper extremity weakness 5. Moderate mitral regurgitation likely secondary 6. Reported atrial fibrillation by EMS however sinus tachycardia on presentation to hospital 7. Tobacco abuse 8. Possible left ventricular thrombus 9. Mild thrombocytopenia, continue to monitor PLAN Patient appears much improved and feels much better today. His weakness in his left upper extremity appears to be slowly improving. Cardiothoracic recommendations appreciated. Beginning workup for possible CABG however given recent stroke agree with delaying surgery if possible. Patient appears fairly s table from an angina standpoint. We will attempt to optimize his heart failure regimen. We will add lisinopril as able for afterload reduction continue with Coreg 6.25 mg twice a day and attempt to increase as tolerated. Blood pressures have been borderline and we will only add lisinopril today. I have not been able to track down the EKG and the EMS that showed concern of atrial fibrillation however presenting EKGs appear to be regular with sinus tachycardia. Regardless, given concern of LV thrombus and embolic source of stroke, we will continue with anticoagulation. We will start him on Eliquis and Plavix given his recent non-STEMI. Continue triple therapy with Eliquis, aspirin and Plavix for 4 weeks and then would recommend coming off aspirin. Plavix may then be stopped 5 days before surgery. Discussed option of transesophageal echo to further assess for left ventricular thrombus and any left atrial appendage thrombus. Patient agreeable and we will attempt to arrange this on Thursday. Objective - Vital Signs Vital signs: Vital Signs Temp 97.9 F 03/31/20 16:00 Pulse 85 03/31/20 19:00 Resp 15 03/31/20 19:00 BP 119/85 03/31/20 19:00 Pulse Ox 94 L 03/31/20 19:00 Intake & Output 03/31/20 03/31/20 04/01/20 06:59 18:59 06:59 Intake Total 751.663 481.91 20 Output Total 470 680 60 Balance 281.663 -198.09 -40 Weight 80.5 kg Intake: IV 580 240 20 KVO 100 240 20 Sodium Chloride 0.9% 1, 480 000 ml In Empty Bag 1 bag @ 1 ML/KG/HR 80.377 mls/ hr IV .[id number] ONE Rx#: [id number] Intake, IV Titration 71.663 241.91 Amount Heparin Sod,Pork in 0.45% 71.663 241.91 NaCl 25,000 unit In 0.45 % NaCl 1 250ml.bag @ 12 UNITS/KG/HR 9.961 mls/hr IV .Q24H [facility] Rx#: [id number] Oral 100 Output: Urine 470 680 60 Other: Voiding Method Indwelling Catheter Indwelling Catheter - Labs CBC & Chem 7: 03/31/20 04:59 03/31/20 04:59 Labs: Abnormal Lab Results - Last 24 Hours (Table) 03/30/20 03/30/20 03/30/20 Range/Units 12:18 19:59 20:42 Plt Count (150-450) k/uL APTT 45.0 H (22.0-30.0) sec Sodium (137-145) mmol/L Chloride (98-107) mmol/L Carbon Dioxide (22-30) mmol/L BUN (9-20) mg/dL POC Glucose (mg/dL) 129 H (75-99) mg/dL Total Protein (6.3-8.2) g/dL Albumin (3.5-5.0) g/dL Ur Specific [place] >1.050 H (1.001-1.035) Urine Protein Trace H (Negative) Urine Blood Moderate H (Negative) Ur Leukocyte Esterase Moderate H (Negative) Urine RBC 86 H (0-5) /hpf Urine WBC 11 H (0-5) /hpf Urine Bacteria Rare H (None) /hpf Urine Mucus Occasional H (None) /hpf 03/31/20 03/31/20 03/31/20 Range/Units 04:59 04:59 04:59 Plt Count 138 L (150-450) k/uL APTT 44.2 H (22.0-30.0) sec Sodium 135 L (137-145) mmol/L Chloride 110 H (98-107) mmol/L Carbon Dioxide 19 L (22-30) mmol/L BUN 24 H (9-20) mg/dL POC Glucose (mg/dL) (75-99) mg/dL Total Protein 5.8 L (6.3-8.2) g/dL Albumin 3.3 L (3.5-5.0) g/dL Ur Specific [place] (1.001-1.035) Urine Protein (Negative) Urine Blood (Negative) Ur Leukocyte Esterase (Negative) Urine RBC (0-5) /hpf Urine WBC (0-5) /hpf Urine Bacteria (None) /hpf Urine Mucus (None) /hpf Microbiology - Last 24 Hours (Table) 03/30/20 12:18 Urine Culture - Preliminary Urine,Voided 03/30/20 16:00 Nasal Screen MRSA/MSSA - Preliminary Nasal Swab
[2020-03-31] MEDS: lisinopriL 20 MG TAB PO SCH (20:23)
[2020-03-31] MEDS: ATORVASTATIN 40 MG TAB PO SCH (20:23)
[2020-03-31] MEDS ORDERED: APIXABAN 5 MG TAB PO SCH (21:00)
[2020-04-01 06:21] LABS: HCT 41.8 % (39.0-53.0); HGB 13.5 gm/dL (13.0-17.5); MCH 29.3 pg (25.0-35.0); MCHC 32.4 g/dL (31.0-37.0); MCV 90.3 fL (80.0-100.0); Mean Platelet Volume 9.3; Platelet Count 154 k/uL (150-450); RBC 4.62 m/uL (4.30-5.90); RDW 14.4 % (11.5-15.5); WBC 9.7 k/uL (3.8-10.6)
[2020-04-01 06:22] LABS: Basophils # (A) 0.1 k/uL (0-0.2); Basophils % (A) 1 %; Eosinophils # (A) 0.3 k/uL (0-0.7); Eosinophils % (A) 3 %; Lymphocytes # (A) 1.7 k/uL (1.0-4.8); Lymphocytes % (A) 17 %; Monocytes # (A) 0.6 k/uL (0-1.0); Monocytes % (A) 6 %; Neutrophils # (A) 7.1 k/uL (1.3-7.7); Neutrophils % (A) 73 %
[2020-04-01 06:35] LABS: Partial Thromboplastin Time 44.4 sec (22.0-30.0); Prothrombin Time 10.2 sec (9.0-12.0)
[2020-04-01] MEDS ORDERED: HEPARIN SOD,PORK IN 0.45% NACL 25,000 UNIT in 0.45% NACL 1 250ML.BAG IV SCH (07:00)
[2020-04-01] MEDS: carvediloL 6.25 MG TAB PO SCH (08:09)
[2020-04-01] MEDS: lisinopriL 20 MG TAB PO SCH (08:09)
--- NOTE | 2020-04-01 08:44 | P.PN ---
Subjective Progress Note Date: 04/01/20 Principal diagnosis: Multivessel coronary artery disease, ischemic cardiomyopathy with an ejection fraction of 20%, left ventricular thrombus, moderate mitral valve regurgitation, acute ischemic stroke, acute left hand numbness and weakness and hyperparesia left lower extremity, paroxysmal atrial fibrillation, acute non-ST elevated myocardial infarction, hypertension and hyperlipidemia. Past medical history significant for peripheral arterial disease and is status post aortobifemoral bypass in 2004, chronic ongoing tobacco abuse smokes about three quarters of a pack of cigarettes daily and history of peripheral neuropathy to his left lower extremity since 2006. The patient was seen in follow-up today 04/01/2020 at his bedside in the intensive care unit. The patient is laying in bed, is awake, alert and oriented 3 and is in no acute distress. Currently denies any complaints of shortness of breath or pain. He remains hemodynamically stable and is currently on no inotropic or pressor support. Heparin drip is in place per protocol for anticoagulation and he was started on Plavix yesterday per cardiology recommendations.. A cardiac catheterization was completed on 03/30/2020 which demonstrated a 50% distal left main stenosis, a 70% stenosis to his mid left anterior descending coronary artery, and 80% stenosis to his first diagonal coronary artery branch, a subtotally occluded ramus to its midportion, a 50% stenosis to his circumflex coronary artery and a totally occluded mid right coronary artery. He also underwent a 2-D echocardiogram which showed an overall left ventricular systolic function to be severely impaired with an ejection fraction between 20 and 25%, mild aortic valve regurgitation, moderate mitral valve regurgitation, mild tricuspid valve regurgitation and a possible thrombus in the LV apex. Oxygen saturation is are 96% on room air and he is achieving 2500 mL on his incentive spirometry. A bedside FEV1 was completed which showed a predicted value of 31%. The patient's left hand weakness is improving as well as the hyperparesia to his left lower extremity. He reports that he is much more movement to his left hand this morning. Objective - Vital Signs Vital signs: Vital Signs Temp 97.7 F 04/01/20 08:00 Pulse 58 L 04/01/20 08:00 Resp 21 04/01/20 08:00 BP 101/74 04/01/20 08:00 Pulse Ox 96 04/01/20 08:00 Intake & Output 03/31/20 04/01/20 04/01/20 18:59 06:59 18:59 Intake Total 481.91 290 40 Output Total 680 1000 370 Balance -198.09 -710 -330 Weight 80.7 kg Intake: IV 240 240 40 KVO 240 240 40 Intake, IV Titration 241.91 Amount Heparin Sod,Pork in 0.45% 241.91 NaCl 25,000 unit In 0.45 % NaCl 1 250ml.bag @ 12 UNITS/KG/HR 9.961 mls/hr IV .Q24H [facility] Rx#: [id number] Oral 50 Output: Urine 680 1000 370 Other: Voiding Method Indwelling Catheter Indwelling Catheter - Constitutional General appearance: Present: average body habitus, cooperative, no acute distress - EENT Eyes: Present: PERRLA, poor dentition, normal appearance. Absent: scleral icterus ENT: Present: hearing grossly normal - Neck Details: Neck supple, no JVD, no lymphadenopathy. - Respiratory Details: Lung sounds are essentially clear to his bilateral upper lobes, few scattered crackles to bilateral bases. No wheezes or rhonchi. Respirations are sym metrical and nonlabored. Oxygen saturation are 96% on room air. He is achieving 2500 mL on his incentive spirometry. - Cardiovascular Details: Regular rhythm and rate. S1 and S2 present, negative for S3, gallop or murmur. No edema present. Heart rate: 79 - Gastrointestinal Gastrointestinal Comment(s): Abdomen is soft, nontender and nondistended. Active bowel sounds present in all 4 abdominal quadrants. No guarding or rigidity. No organomegaly appreciated. - Genitourinary Genitourinary Comment(s): Clemens catheter for accurate I&O. Draining clear yellow urine. - Integumentary Integumentary Comment(s): skin is warm and dry. No clubbing or cyanosis is present. - Neurologic Neurologic Comment(s): Left hand weakness, left lower extremity hyperparesia - Musculoskeletal Musculoskeletal: Present: left sided weakness (Left hand) - Psychiatric Psychiatric: Present: A&O x's 3, appropriate affect, intact judgment & insight - Allied health notes Allied health notes reviewed: nursing - Labs CBC & Chem 7: 04/01/20 06:06 03/31/20 04:59 Labs: Abnormal Lab Results - Last 24 Hours (Table) 04/01/20 Range/Units 06:06 APTT 44.4 H (22.0-30.0) sec Microbiology - Last 24 Hours (Table) 03/30/20 12:18 Urine Culture - Preliminary Urine,Voided Assessment and Plan Assessment: 1. Multivessel coronary artery disease 2. Ischemic cardiomyopathy with ejection fraction of 20% 3. Left ventricular thrombus 4. Moderate mitral valve regurgitation 5. Acute ischemic stroke stroke, acute left hand weakness and numbness 6. Paroxysmal atrial fibrillation 7. Acute non-ST elevated myocardial infarction this admission 8. Hypertension 9. Hyperlipidemia 10. Chronic ongoing tobacco dependence 11. History of peripheral arterial disease, status post aortobifemoral bypass in 2004 Plan: 1. Continue to optimize medical management with aspirin, statin, beta mona and PORTER inhibitor for afterload reduction. 2. Heparin drip managed by cardiology. 3. Encourage use of his incentive spirometry 10 times every hour while awake. 4. Recommend transesophageal echocardiogram to evaluate left ventricular thrombus, mitral valve which may be completed on an outpatient basis per the cardiothoracic surgery standpoint. 5. Medical management and other comorbidities per primary care service. 6. Continue to encourage and discussed the importance of smoking cessation. 7. Due to the patient's acute stroke he would be considered a high risk surgical candidate, we will continue to follow on an outpatient basis. The patient can follow up with Dr. Gleason in 3 weeks post discharge. 8. Agree with cardiology regarding anticoagulation. 9. More recommendations to follow based on patient's clinical course. Time with Patient: Greater than 30
[2020-04-01] MEDS ORDERED: ASPIRIN 81 MG PO SCH (09:00)
[2020-04-01] MEDS ORDERED: CLOPIDOGREL 75 MG TAB PO ONE (09:00)
--- NOTE | 2020-04-01 09:48 | P.DS ---
Providers Date of admission: 03/29/20 23:18 Attending physician: Isai Martell MD Consults: 03/29/20 23:18 Consult Physician Stat Consulting Provider: Crow Curtis Consult Reason/Comments: NIVDRF, acute pulmonary edema, NSTEMI Do you want consulting provider notified?: Already Contacted 03/30/20 01:59 Consult Physician Routine Consulting Provider: Tong Mota Consult Reason/Comments: Nstemi, new onset acute CHF, pulmonary edema Do you want consulting provider notified?: Yes 03/30/20 07:36 Consult Physician Urgent Consulting Provider: Luisa Linares Consult Reason/Comments: Possible stroke/stroke like symptoms Do you want consulting provider notified?: Yes 03/30/20 14:01 Consult Physician Routine Consulting Provider: Terence Mendoza Consult Reason/Comments: re: multivessel CAD, CABG Do you want consulting provider notified?: Already Contacted Primary care physician: Rosalino Yee [facility] Course: 1. NSTEMI secondary to Multivessel coronary artery disease, including distal le ft main 50% stenosis, 70% hazy LAD stenosis, 80% diagonal 1 stenosis, 100% ramus stenosis, 50% circumflex stenosis and subtotal occlusion of OM1 and OM2. 2. Acute systolic heart failure 3. Acute ischemic stroke with left upper extremity weakness 4. Tobacco abuse Patient was placed on IV heparin, aspirin , statin, beta mona, and ACEi. Pt was evaluated by cardiology, CT surgery, and neurology. Findings included likely two ischemic strokes, with TTE showed possible thrombus in the LV [place], as well as severe global hypokinesis with EF of 20-25%. Based on overall evaluation, patient's CABG, KASSIE, and remaining workup were deferred to outpatient evaluation to allow for time to stabilize cardiac thrombus. Pt was discharged with LifeVest with plans to follow up with cardiology and CT surgery for CABG planning and pre-procedural work-up such as KASSIE. Released in stable condition. I spent more than 30 minutes coordinating this discharge. Patient Condition at Discharge: Good Plan - Discharge Summary Discharge Rx Participant: No New Discharge Prescriptions: New Aspirin 81 mg PO DAILY #30 chew carvediloL [Coreg] 6.25 mg PO BID-W/MEALS #60 tab Apixaban [Eliquis] 5 mg PO BID #30 tab Atorvastatin [Lipitor] 40 mg PO HS #30 tab Clopidogrel [Plavix] 75 mg PO DAILY #30 tab lisinopriL [Zestril] 20 mg PO DAILY #30 tab Continue Fish Oil/Dha/Epa [Fish Oil 1,200 mg Fish Oil] 1 cap PO DAILY Discharge Medication List Fish Oil/Dha/Epa [Fish Oil 1,200 mg Fish Oil] 1 cap PO DAILY 03/29/20 [History] Apixaban [Eliquis] 5 mg PO BID #30 tab 04/01/20 [Rx] Aspirin 81 mg PO DAILY #30 chew 04/01/20 [Rx] Atorvastatin [Lipitor] 40 mg PO HS #30 tab 04/01/20 [Rx] Clopidogrel [Plavix] 75 mg PO DAILY #30 tab 04/01/20 [Rx] carvediloL [Coreg] 6.25 mg PO BID-W/MEALS #60 tab 04/01/20 [Rx] lisinopriL [Zestril] 20 mg PO DAILY #30 tab 04/01/20 [Rx] Follow up Appointment(s)/Referral(s): Chandler Raza DO [STAFF PHYSICIAN] - 1 Week Rosalino Mcallister MD [Primary Care Provider] - 1-2 days Oliver Gleason MD [STAFF PHYSICIAN] - 3 Weeks Patient Instructions/Handouts: Heart Attack (GEN), Heart Healthy Diet (GEN), Premature Ventricular Contractions (GEN), CABG (Coronary Artery Bypass Graft) (GEN)
--- NOTE | 2020-04-01 10:01 | P.PN ---
Subjective Progress Note Date: 04/01/20 Principal diagnosis: Non-ST segment elevation myocardial infarction, acute exacerbation of systolic congestive heart failure, atrial fibrillation, CVA This is a very pleasant 64-year-old gentleman who has a history of abdominal aortic aneurysm status post repair in 2004, chronic and ongoing tobacco dependence. He is today he developed an acute onset of shortness of breath and EMS was called. He is found to be cool diaphoretic and pale and original O2 saturations were in the mid 80s. Nonrebreather was tried. He eventually needed CPAP on transfer to the hospital. He was found to be in atrial fibrillation with a rapid ventricular response. Here in the emergency department he was in sinus tachycardia. CT angiogram of the chest revealed no evidence of pulmonary embolism. There is some cardiomegaly with pleural effusion and interstitial edema suggestive of congestive heart failure. CT of the abdomen revealed some mild small bowel ileus but no mechanical bowel obstruction. D-dimer 4.60. Peak troponin 6.14. He was a non-ST segment elevation myocardial infarction admitted to the intensive care unit for the same. The plan is for possible cardiac catheterization today however during the night the patient developed left hand weakness and numbness along with some left lower extremity hyper previous. Computed tomography scan of the brain revealed no acute infarct. He is seen today in consultation in the ICU. He's presently awake and alert in no acute di stress. He is maintaining good O2 saturations in the 90s on 2 L/m per nasal cannula. He is on a heparin drip. 0.9 normal saline at KVO. Chest x-ray continues to show some evidence of fluid volume overload. He is given Lasix 60 mg IVP 1. White count 17.1. Hemoglobin 14.3. INR 1.0. Sodium 139. Potassium 4.4. Bicarb 20. Creatinine 1.0. ProBNP 5780. The patient is seen today 03/31/2020 in follow-up in the intensive care unit. He is currently awake and alert in no acute distress. He is having ongoing issues with left upper extremity weakness more so on his left hand as well as left lower extremity hypersensitivity. He was felt to have an acute ischemic stroke probably in 2 different anatomic locations. Patient's left hand motor weakness and left extremity paresthesias from 2 separate strokes involving the right MCA vascular territory. He was found to have paroxysmal atrial fibrillation. Echocardiogram revealed evidence of a possible left ventricular apical clot. He did undergo cardiac catheterization yesterday that revealed multivessel coronary artery disease disease including a distal left main 50% stenosis, 70% hazy LAD stenosis suspected as a culprit lesion, 80% diagonal 1 stenosis, 100% ramus stenosis, 50% circumflex stenosis and a sub-total occlusion of the OM1 and OM 2. Severe ischemic cardiomyopathy with ejection fraction of 20%. Left ventricular thrombus. CABG was recommended. Carotid Dopplers revealed no significant hemodynamic stenosis. White count 9.8. Hemoglobin 13.0. Sodium 135. Potassium 4.3. Creatinine 0.88. He remains on a heparin drip. The patient is seen today 04/01/2020 in follow-up in intensive care unit. He remains awake and alert in no acute distress. His left hand weakness and numbness is improving. He's able to move it on his own. Able to open his fingers now. The left lower extremity hypersensitivity and paresthesias have improved as well. He denies any shortness of breath, cough or congestion. He has been maintaining good O2 saturations in the 90s on room air. He's been afebrile. No chest pain. He did have some brief episodes of nonsustained ventricular tachycardia throughout the evening. White count 9.7. Hemoglobin 13.5. Platelets 154. Objective - Vital Signs Vital signs: Vital Signs Temp 97.7 F 04/01/20 08:00 Pulse 58 L 04/01/20 08:00 Resp 21 04/01/20 08:00 BP 101/74 04/01/20 08:00 Pulse Ox 96 04/01/20 08:00 Intake & Output 03/31/20 04/01/20 04/01/20 18:59 06:59 18:59 Intake Total 481.91 290 40 Output Total 680 1000 370 Balance -198.09 -710 -330 Weight 80.7 kg Intake: IV 240 240 40 KVO 240 240 40 Intake, IV Titration 241.91 Amount Heparin Sod,Pork in 0.45% 241.91 NaCl 25,000 unit In 0.45 % NaCl 1 250ml.bag @ 12 UNITS/KG/HR 9.961 mls/hr IV .Q24H [facility] Rx#: [id number] Oral 50 Output: Urine 680 1000 370 Other: Voiding Method Indwelling Catheter Indwelling Catheter - Exam GENERAL EXAM: Alert, pleasant 64-year-old gentleman, on 2 L nasal cannula, comfortable in no apparent distress. HEAD: Normocephalic. EYES: Normal reaction of pupils, equal size. NOSE: Clear with pink turbinates. THROAT: No erythema or exudates. NECK: No masses, no JVD. CHEST: No chest wall deformity. LUNGS: Equal air entry with faint crackles in the posterior bases. CVS: S1 and S2 normal with no audible murmur, regular rhythm. ABDOMEN: No hepatosplenomegaly, normal bowel sounds, no guarding or rigidity. SPINE: No scoliosis or deformity SKIN: No rashes CENTRAL NERVOUS SYSTEM: Left hand weakness and numbness, left lower extremity hyperparesia, tone is normal in all 4 extremities. EXTREMITIES: There is no peripheral edema. No clubbing, no cyanosis. Peripheral pulses are intact. - Labs CBC & Chem 7: 04/01/20 06:06 03/31/20 04:59 Labs: Abnormal Lab Results - Last 24 Hours (Table) 04/01/20 Range/Units 06:06 APTT 44.4 H (22.0-30.0) sec Microbiology - Last 24 Hours (Table) 03/30/20 16:00 Nasal Screen MRSA/MSSA - Final Nasal Swab 03/30/20 12:18 Urine Culture - Preliminary Urine,Voided Assessment and Plan Assessment: Acute hypoxemic respiratory failure secondary to acute exacerbation of systolic congestive heart failure, severe impaired left ventricular systolic function with ejection fraction 20-25%. Thrombus in the LV apex. Paroxysmal atrial fibrillation and hypertension and non-ST segment elevation myocardial infarction. Non-ST segment elevation myocardial infarction, on a heparin drip. Found to have significant coronary artery disease, cardiac catheterization revealed multivessel coronary artery disease disease including a distal left main 50% stenosis, 70% hazy LAD stenosis suspected as a culprit lesion, 80% diagonal 1 stenosis, 100% ramus stenosis, 50% circumflex stenosis and a sub-total occlusion of the OM1 and OM 2. Revascularization once stable is recommended Brief episode of atrial fibrillation according to EMS, currently sinus rhythm Hypertension Left hand weakness and numbness with left lower extremity hyperparesia, computed tomography scan of the brain revealed ischemic stroke in 2 separate locations Chronic and ongoing tobacco dependence History of abdominal aortic aneurysm, status post repair in 2004 Plan: The patient was seen and evaluated by Dr. Curtis He is currently stable from the pulmonary and critical care standpoint Remains on a heparin drip Plan is for outpatient KASSIE per cardiology services Plan is for surgical intervention in the next 2-3 weeks once stabilized Neurology and CT services have been consulted Educated regarding the importance of complete smoking cessation I, the cosigning physician, performed a history & physical examination of the patient. Lungs sounds with faint crackles in the bilateral posterior bases. Maintaining good O2 saturations in the 90s on room air. I discussed the assessment and plan of care with my nurse practitioner, Kaycee Churchill. I attest to the above note as dictated by her.
[2020-04-01 10:06] VITALS: RESP 16
[2020-04-01] MEDS ORDERED: APIXABAN 5 MG TAB PO SCH (11:30)
[2020-04-01 11:44] VITALS: BP 112/76; TEMP 97.8
--- NOTE | 2020-04-01 11:52 | P.PN ---
Subjective Progress Note Date: 04/01/20 Principal diagnosis: Non-STEMI HISTORY OF PRESENTING ILLNESS This is a pleasant 64-year-old male past medical history significant for AAA status post replacement and unknown "neuropathy" surgery of his groin area for left leg pain who presents with sudden onset of shortness of breath yesterday. He denies any prior significant medical history such as hypertension, diabetes, hyperlipidemia. He had been in his usual state of health up until yesterday night when he started feeling short of breath and cannot catch his breath. He admits orthopnea and had to sit up and go to the garage to catch his breath. He denies any chest pain or pressure. He finally called EMS and was transported to the hospital. Per report, EMS noted atrial fibrillation however I do not have the EKG to support this. By the time he came to the emergency department he was in sinus rhythm with nonspecific ST and T wave abnormalities. He was placed on a BiPAP with respiratory distress. He had chest x-ray which showed concerns of heart failure or pneumonia. He denies any recent fevers, chills, cough. He denies any chest pain or pressure, nausea or diaphoresis. Unfortunately overnight he developed left hand weakness with inability to open his hand as well as some left lower leg paresthesias. He had a brain CT which showed small lacunar infarcts of the anterior right internal capsule which appeared old. He does smoke tobacco however expresses he will quit. He was noted to be hyperte nsive with initial blood pressure 220s and was placed on Nitroglycerin drip with improvement. He was additionally given Lasix with good urine output and has since been taken off of the BiPAP and able to lie on his back without any orthopnea. Denies any palpitations at home or fluttering in his chest. 03/31/2020 Patient seen and examined. Patient denies any further chest pain. He did undergo left heart catheterization yesterday which showed multivessel disease. He admits to some improvement of his left hand movement. No orthopnea, denies dyspnea. Denies any hematochezia or melena. Vital signs appear stable, no events on telemetry. 04/01/2020 Patient seen and examined. Patient admits he is feeling well without any chest pain or pressure. He did have a 12 beat run of nonsustained ventricular tachycardia. He was asymptomatic for this. Denies any orthopnea or dyspnea. He was started on lisinopril yesterday. REVIEW OF SYSTEMS At the time of my exam: CONSTITUTIONAL: Denies fever or chills. CARDIOVASCULAR: Denies chest pain, improved shortness of breath, improved orthopnea, denies PND or palpitations. RESPIRATORY: Denies cough. GASTROINTESTINAL: Denies abdominal pain, diarrhea, constipation, nausea or vomiting. MUSCULOSKELETAL: Denies myalgias. NEUROLOGIC: + numbness, + left upper extremity tingling and weakness ENDOCRINE: Denies fatigue, weight change, polydipsia or polyurina. GENITOURINARY: Denies burning, hematuria or urgency with micturation. HEMATOLOGIC: Denies history of anemia or bleeding. PHYSICAL EXAMINATION Blood pressure 119/85 heart rate 85 afebrile and maintaining oxygen saturation on 2 L nasal cannula. CONSTITUTIONAL: No apparent distress. HEENT: Head is normocephalic. Pupils are equal, round. Sclerae anicteric. Mucous membranes of the mouth are moist. No JVD. No carotid bruit. CHEST EXAMINATION: Lungs are clear to auscultation. No chest wall tenderness is noted on palpation or with deep breathing. HEART EXAMINATION: Regular rate and rhythm. S1, S2 heard. No murmurs, gallops or rub. ABDOMEN: Soft, nontender. Positive bowel sounds. Positive midline surgical scar EXTREMITIES: 2+ peripheral pulses, no lower extremity edema and no calf t enderness. NEUROLOGIC EXAMINATION: Patient is awake, alert and oriented x3. ASSESSMENT 1. Acute systolic heart failure 20-25% 2. Non-STEMI with multivessel disease: Left main 50%, LAD 70%, diagonal one 80%, ramus 100%, circumflex 50%, RCA 100%. 3. Hyperlipidemia 4. Acute stroke with left upper extremity weakness 5. Moderate mitral regurgitation likely secondary 6. Reported atrial fibrillation by EMS however sinus tachycardia on presentation to hospital 7. Tobacco abuse 8. Possible left ventricular thrombus 9. Mild thrombocytopenia, continue to monitor PLAN -Continue with triple therapy with aspirin, Plavix and Eliquis for 4 weeks and then transition to Eliquis and Plavix after 4 weeks. -From a heart failure standpoint patient is doing well. We will increase his Coreg to 12.5 mg twice a day given his nonsustained VT and continue his lisinopril 20 mg daily. May consider adding Aldactone as an outpatient. -Continue Eliquis for questionable atrial fibrillation and left ventricular thrombus. May consider outpatient monitor to further assess atrial fibrillation burden. -Patient needs revascularization and ideally CABG given his multivessel disease. Patient have outpatient follow-up with cardiothoracic surgery for further evaluation. Hopeful CABG in approximately 6 weeks. -Discussed with cardiothoracic surgery and we would like to delay the KASSIE to further assess mitral regurgitation LV thrombus until patient has been further optimized, approximately 2-3 weeks from now as an outpatient. Hopefully be LV thrombus has resolved and his mitral regurgitation may be improved with optimization of his heart failure regimen. -We discussed LifeVest for patient and patient is agreeable. Therefore patient will go home on LifeVest for his acute myocardial infarction, non-STEMI with ischemic cardiomyopathy ejection fraction 20-25% and nonsustained ventricular tachycardia. -Patient appears stable for discharge home with follow-up in the office in one week. Objective - Vital Signs Vital signs: Vital Signs Temp 97.7 F 04/01/20 08:00 Pulse 87 04/01/20 10:00 Resp 16 04/01/20 10:00 BP 121/76 04/01/20 10:00 Pulse Ox 94 L 04/01/20 09:00 Intake & Output 03/31/20 04/01/20 04/01/20 18:59 06:59 18:59 Intake Total 481.91 290 80 Output Total 680 1000 650 Balance -198.09 -710 -570 Weight 80.7 kg Intake: IV 240 240 80 KVO 240 240 80 Intake, IV Titration 241.91 Amount Heparin Sod,Pork in 0.45% 241.91 NaCl 25,000 unit In 0.45 % NaCl 1 250ml.bag @ 12 UNITS/KG/HR 9.961 mls/hr IV .Q24H [facility] Rx#: [id number] Oral 50 Output: Urine 680 1000 650 Other: Voiding Method Indwelling Catheter Indwelling Catheter Indwelling Catheter - Labs CBC & Chem 7: 04/01/20 06:06 03/31/20 04:59 Labs: Abnormal Lab Results - Last 24 Hours (Table) 04/01/20 Range/Units 06:06 APTT 44.4 H (22.0-30.0) sec Microbiology - Last 24 Hours (Table) 03/30/20 16:00 Nasal Screen MRSA/MSSA - Final Nasal Swab 03/30/20 12:18 Urine Culture - Preliminary Urine,Voided
--- NOTE | 2020-04-01 12:05 | CT ---
EXAMINATION TYPE: CT brain wo con DATE OF EXAM: 04/01/2020 HISTORY: NIVDRF, NSTEMI, Acute pulmonary edema CT DLP: 1099.4 mGycm. Automated Exposure Control for Dose Reduction was Utilized. TECHNIQUE: CT scan of the head is performed without contrast. COMPARISON: CT brain 2 days ago. FINDINGS: There is no acute intracranial hemorrhage or midline shift identified. There is diffuse v entricular and sulcal prominence consistent with diffuse age-related cerebral atrophy. Cavum septum l ucidum redemonstrated. There is low-attenuation in the periventricular white matter consistent with c hronic small vessel ischemic change. Old infarct high right parietal lobe posterior watershed region redemonstrated . Tiny lacunar infarcts right internal capsule redemonstrated. The globes are intact a nd the visualized sinuses are clear. IMPRESSION: No acute intracranial hemorrhage or midline shift. There is mild diffuse cerebral atrop hy and chronic small vessel ischemic change with old infarcts all redemonstrated. No significant alfred ge from prior CT.
[2020-04-01 17:01] VITALS: PULSE 87
[2020-04-01] MEDS ORDERED: carvediloL 12.5 MG TAB PO SCH (17:30)
[2020-04-02] MEDS ORDERED: CLOPIDOGREL 75 MG TAB PO SCH (09:00)
--- NOTE | 2020-04-04 09:23 | P.ARTDOP ---
Arterial Doppler LOWER EXTREMITY ARTERIAL DOPPLER: DATE OF SERVICE: 03/30/2020 Reason for study: Calf claudication, preop CABG. Doppler waveforms: Multiphasic at both femorals. Atypical at the popliteal and the right posterior tibial and left dorsalis pedis. Monophasic at the digits and right dorsalis pedis and left posterior tibial.. Pulse volume recording: []. Pressure gradients: Above the ankles bilaterally. Ankle-brachial indices: 0.65 on the right and 0.56 on the left.. Toe brachial indices: 0.58 on the right , 0.43 on the left Impression: Suggests moderate bilateral fem-pop disease. Clinical correlation recommended..
--- NOTE | 2020-04-04 10:07 | P.VSCSTY ---
Greater Saphenous Vein Mapping This is bilateral lower extremity greater saphenous vein mapping. Date of service: 03/30/2020 Vein quality and ultrasound appearance: We see no intraluminal thrombus or wall changes. Vein size groin right : 6.1 x 6.6 groin left: 7.8 x 9 High thigh right: 3.5 x 4.4 high thigh left: 4.6 x 4.5 Mid thigh right: 2.3 x 2.1 mid thigh left: 3.8 x 4.0 Above-knee right: 2.7 x 2.6 above- knee left: 3.3 x 3.8 Below knee right: 2.5 x 2.0 below-knee left: 3.2 x 3.2 Mid calf right: 2.0 x 1.7 mid calf left: 2.7 x 2.9 Ankle right: 2.6 x 3.1 ankle left: 2.9 x 2.8 Impression: There appears to be usable vein in the left leg and in the right knee at the knee and above. Some areas in the lower leg on the right may be unusable due to size..
== END 2020-04-01 18:33 | disposition home or self-care (01) | DRG 280 ==
LOC: EC 21:14 → 2SICU 23:18
PROVIDERS: ADMIT Internal Medicine; ATTEND Internal Medicine
PROC: 5A09457 Assistance with Respiratory Ventilation, 24-96 Consecutive Hours, Continuous Positive Airway Pressure (ICD-10-PCS; 2020-03-29)
PROC: 4A023N7 Measurement of Cardiac Sampling and Pressure, Left Heart, Percutaneous Approach (ICD-10-PCS; principal; 2020-03-30 11:55)
PROC: B2111ZZ Fluoroscopy of Multiple Coronary Arteries using Low Osmolar Contrast (ICD-10-PCS; principal; 2020-03-30 11:55)
PROC: B2151ZZ Fluoroscopy of Left Heart using Low Osmolar Contrast (ICD-10-PCS; principal; 2020-03-30 11:55)
DX: I21.4 Non-ST elevation (NSTEMI) myocardial infarction (principal); J96.01 Acute respiratory failure with hypoxia; I50.23 Acute on chronic systolic (congestive) heart failure; I63.81 Other cerebral infarction due to occlusion or stenosis of small artery; N13.30 Unspecified hydronephrosis; K56.7 Ileus, unspecified; E87.2 Acidosis; I47.2 Ventricular tachycardia; I11.0 Hypertensive heart disease with heart failure; R79.89 Other specified abnormal findings of blood chemistry; F17.210 Nicotine dependence, cigarettes, uncomplicated; M79.605 Pain in left leg; R40.2362 Coma scale, best motor response, obeys commands, at arrival to emergency department; R40.2142 Coma scale, eyes open, spontaneous, at arrival to emergency department; R40.2252 Coma scale, best verbal response, oriented, at arrival to emergency department; G62.9 Polyneuropathy, unspecified; E78.5 Hyperlipidemia, unspecified; I48.0 Paroxysmal atrial fibrillation; I25.10 Atherosclerotic heart disease of native coronary artery without angina pectoris; I73.9 Peripheral vascular disease, unspecified; I08.3 Combined rheumatic disorders of mitral, aortic and tricuspid valves; I25.5 Ischemic cardiomyopathy; G83.24 Monoplegia of upper limb affecting left nondominant side; D69.6 Thrombocytopenia, unspecified; Z88.1 Allergy status to other antibiotic agents; Z79.899 Other long term (current) drug therapy; Z86.79 Personal history of other diseases of the circulatory system; Z98.890 Other specified postprocedural states; Z82.5 Family history of asthma and other chronic lower respiratory diseases; Z82.49 Family history of ischemic heart disease and other diseases of the circulatory system; Z71.6 Tobacco abuse counseling; Z90.89 Acquired absence of other organs
CPT/HCPCS: 36415; 70450; 71045; 71275; 74177; 80048; 80053; 80061; 80074; 81001; 83036; 83605; 83735; 83880; 84100; 84443; 84484; 85025; 85379; 85610; 85730; 87070; 87086; 93005; 93306; 93454; 93880; 93922; 93970; 94150; 96365; 96366; 96367; 96375; 96376; 99285

== ENCOUNTER → 2020-04-26 | Day surgery (SDC) | payer BC, MEDICARE ==
[2020-04-23 12:52] VITALS: BMI 28.0
[~2020-04-26] MED LIST: BENZOCAINE SPRAY 1 CAN MUCOUS MEM ONE; MIDAZOLAM 2 MG/2 ML VIAL IV ONE; fentaNYL (PF) 50 MCG/ML 2 ML AMP IV ONE; fentaNYL (PF) 50 MCG/ML 2 ML AMP ONE
[2020-04-26] MEDS: IV FLUID CONTINUATION 500 ML IV ONE ×3 (11:35→11:48)
[2020-04-26 12:43] VITALS: RESP 20
--- NOTE | 2020-04-26 13:06 | P.TEE ---
Indications for Procedure(s): Ischemic cardiomyopathy, mitral regurgitation, concern of LV thrombus Date of Procedure: 04/26/20 Transesophageal Echocardiogram (KASSIE) Progress Note: Procedure performed: Transesophageal Echocardiogram, moderate conscious sedation Moderate conscious sedation: Moderate conscious sedation was supplied with direct supervision of myself using Versed and Fentanyl for a total of 16 minutes. Complications: none History: Patient is a pleasant 64-year-old male with a history of coronary artery disease with recent non-STEMI and multivessel disease, ischemic cardiomyopathy with prior ejection fraction 20-25%, paroxysmal A. fib, recent stroke felt to be cardioembolic, concern of left ventricular thrombus, concern of PAD, moderate mitral regurgitation. He had recent admission with non-STEMI as well as stroke and was evaluated for possible CABG however felt best optimi zed on medical therapy and then reevaluated. There was concern of an LV thrombus and therefore we are asked to perform a KASSIE to further assess after patient has been on anticoagulation for almost 1 month. PROCEDURE: After the risks, benefits and alternatives of the above mentioned procedure was explained in detail with the patient, informed consent was obtained. Patient was brought to the lab in a fasting state. Patient was given IV Versed and Fentanyl for sedation. The throat was sprayed with Hurricane to anesthetize the throat. A lubricated Omni probe was then introduced into the esophagus and stomach and multiple views were obtained. Agitated saline bubbles were injected to assess for any intra-atrial shunt. The probe was then removed. Patient tolerated the procedure well. FINDINGS: 1. The aortic valve is tricuspid and functioning normally. No significant aortic stenosis identified. Trace aortic regurgitation. 2. The mitral valve appears be normal with mild mitral regurgitation. Normal pulmonary vein flow. 3. Tricuspid valve appears to be normal. No significant tricuspid regurgitation. RVSP was less than 30 mmHg. 4. The interatrial septum is intact. No evidence of PFO. 5. Left atrial appendage is free of clot. 6. The left ventricle is moderately dilated. There is global hypokinesis of the left ventricle. Left ventricular ejection fraction is estimated at 35%. There is no left ventricular thrombus noted on multiple images including deep transgastric images.
[2020-04-26 14:29] VITALS: BP 124/76; PULSE 62
== END ==
LOC: CATHCVL 10:53
PROVIDERS: ATTEND Internal Medicine
DX: I34.0 Nonrheumatic mitral (valve) insufficiency (principal); I25.5 Ischemic cardiomyopathy; I25.10 Atherosclerotic heart disease of native coronary artery without angina pectoris; I51.3 Intracardiac thrombosis, not elsewhere classified; I21.4 Non-ST elevation (NSTEMI) myocardial infarction; I63.9 Cerebral infarction, unspecified; I73.9 Peripheral vascular disease, unspecified; I48.0 Paroxysmal atrial fibrillation; E78.5 Hyperlipidemia, unspecified; Z79.01 Long term (current) use of anticoagulants; Z79.82 Long term (current) use of aspirin; Z79.02 Long term (current) use of antithrombotics/antiplatelets; Z79.899 Other long term (current) drug therapy; Z72.0 Tobacco use
CPT/HCPCS: 93312; 93320; 93325; J2250; J3010

== ENCOUNTER → 2020-05-21 | Outpatient (CLI) | payer BC ==
[2020-05-21 09:06] LABS: HCT 43.6 % (39.0-53.0); HGB 14.5 gm/dL (13.0-17.5); MCH 30.4 pg (25.0-35.0); MCHC 33.4 g/dL (31.0-37.0); MCV 91.2 fL (80.0-100.0); Mean Platelet Volume 7.9; Platelet Count 163 k/uL (150-450); RBC 4.78 m/uL (4.30-5.90); RDW 14.3 % (11.5-15.5); WBC 10.1 k/uL (3.8-10.6)
[2020-05-21 09:13] LABS: INR 0.9 (<1.2); Partial Thromboplastin Time 24.6 sec (22.0-30.0); Prothrombin Time 9.9 sec (9.0-12.0)
[2020-05-21 09:28] LABS: Albumin 4.5 g/dL (3.5-5.0); Potassium 5.2 mmol/L (3.5-5.1); Total Bilirubin 0.6 mg/dL (0.2-1.3); Total Protein 7.5 g/dL (6.3-8.2)
--- NOTE | 2020-05-21 09:56 | XR ---
EXAMINATION TYPE: XR chest 2V DATE OF EXAM: 05/21/2020 COMPARISON: 03/30/2020 HISTORY: 64-year-old male preopen heart workup TECHNIQUE: Frontal and lateral views FINDINGS: Heart upper limits of normal in size. Mild tortuosity/ectasia of the thoracic aorta. No consolidation or pleural effusion. IMPRESSION: No acute cardiopulmonary process.
== END | disposition home or self-care (01) ==
LOC: LABPAT 07:42
PROVIDERS: ATTEND Thoracic Surgery (Cardiothoracic Vascular Surgery)
DX: I25.10 Atherosclerotic heart disease of native coronary artery without angina pectoris (principal); I48.91 Unspecified atrial fibrillation; R73.9 Hyperglycemia, unspecified; I10 Essential (primary) hypertension; E78.00 Pure hypercholesterolemia, unspecified
CPT/HCPCS: 80053; 85027; 85610; 85730; 71046; 36415; U0003; C9803

== ENCOUNTER 2020-05-24 05:32 | Inpatient (IN) | payer BC ==
--- NOTE | 2020-05-21 11:26 | P.PN ---
Progress Note - Text Progress Note Date: 05/21/20 A 5 m walk test was completed with the patient today, time 1: 2.16 seconds, time 2: 1.94 seconds, time 3: 2.13 seconds. STS risk score was calculated and discussed with the patient.
[2020-05-22] MEDS: SODIUM CHLORIDE 0.9% 1,000 ML IV SCH (13:15)
[~2020-05-24 05:32] MED LIST changes: +ALBUMIN HUMAN 25% 50 ML IV ONE; +ALBUMIN HUMAN 5% 500 ML IVPB ONE; +ASPIRIN 325 MG TAB PO ONE; +ATORVASTATIN 10 MG TAB PO ONE; -BENZOCAINE SPRAY 1 CAN MUCOUS MEM ONE; +CALCIUM CHLORIDE 100 MG/ML 10 ML SYRINGE IV ONE; +CARDIOPLEGIC SOLN (K+ 16 MEQ/L 1,000 ML with SODIUM BICARB (1 MEQ/ML) 20 ML, LIDOCAINE ... PERFUSION ONE; +CHLORHEXIDINE GLUCONATE 15 ML CUP MUCOUS MEM ONE; +CLEVIDIPINE BUTYRATE 25 MG in EMPTY BAG 1 BAG IV ONE; +DILTIAZEM 125 MG in SODIUM CHLORIDE 0.9% 100 ML IV ONE; +HEPARIN SODIUM 1,000 UN/ML (10ML VL) IV ONE; +HEPARIN SODIUM,PORCINE 5,000 UNIT in SODIUM CHLORIDE 0.9% 500 ML 500 ML IV ONE; +INSULIN REGULAR 100 UNIT in SODIUM CHLORIDE 0.9% 100 ML IV ONE; +LACTATED RINGERS 1,000 ML IV ONE; +MAGNESIUM SULFATE MG 500 MG/ML IV ONE; +MANNITOL 25% 12.5 GM/50 ML VIAL IV ONE; +METOPROLOL TARTRATE 12.5 MG TAB PO ONE; -MIDAZOLAM 2 MG/2 ML VIAL IV ONE; +NITROGLYCERIN-D5W PMX 25 MG/250 ML BTL IV ONE; +NITROGLYCERIN-D5W PMX 50 MG in DEXTROSE/WATER 1 250ML.BAG IV ONE; +NOREPINEPHRINE 4 MG in SODIUM CHLORIDE 0.9% 250 ML IV ONE; +PAPAVERINE 360 MG in SODIUM CHLORIDE 0.9% 90 ML IV ONE; +PHENYLEPHRINE 10 MG/ML VIAL IV ONE; +PHENYLEPHRINE 40 MG in SODIUM CHLORIDE 0.9% 250 ML IV ONE; +PROTAMINE SULFATE 10 MG/ML 25 ML VIAL IV ONE; +PROTAMINE SULFATE 250 MG in EMPTY BAG 1 BAG IV ONE; +SODIUM BICARB 8.4% 50 ML SYR (1 MEQ/ML) IV ONE; +SODIUM CHLORIDE 0.9% 1,000 ML IV ONE; +TRANEXAMIC ACID 2,000 MG in SODIUM CHLORIDE 0.9% 80 ML IV ONE; +ceFAZolin 1,000 MG in SODIUM CHLORIDE 0.9% IRRIGATIO 1,000 ML IRRIGATION ONE; +ceFAZolin 2,000 MG in SODIUM CHLORIDE 0.9% 30 ML IVPB ONE; -fentaNYL (PF) 50 MCG/ML 2 ML AMP IV ONE; -fentaNYL (PF) 50 MCG/ML 2 ML AMP ONE; +propofoL 1,000 MG/100 ML VIAL IV ONE
[2020-05-24 06:27] LABS: Glucose,Whole Blood 92 mg/dL (75-99)
[2020-05-24 06:49] LABS: Calcium 9.4 mg/dL (8.4-10.2); Potassium 4.9 mmol/L (3.5-5.1)
[2020-05-24] MEDS ORDERED: VECURONIUM 10 MG VIAL IV ONE (07:40)
[2020-05-24] MEDS ORDERED: HEPARIN SODIUM,PORCINE 10,000 UNIT/ML 1 ML VIAL ONE (07:40)
[2020-05-24] MEDS ORDERED: NITROGLYCERIN-D5W PMX 50 MG/250 ML BOTTLE IV ONE (07:40)
[2020-05-24] MEDS ORDERED: MIDAZOLAM 2 MG/2 ML VIAL ONE (07:40)
[2020-05-24] MEDS ORDERED: PROPOFOL 10 MG/ML 20 ML VIAL IV ONE (07:40)
[2020-05-24] MEDS ORDERED: PROTAMINE SULFATE 10 MG/ML 25 ML VIAL IV ONE (07:40)
[2020-05-24] MEDS ORDERED: fentaNYL (PF) 50 MCG/ML 2 ML AMP ONE (07:40)
[2020-05-24] MEDS ORDERED: ceFAZolin 1,000 MG VIAL ONE (07:40)
[2020-05-24] MEDS ORDERED: SODIUM CHLORIDE 0.9% IRRIG 1,000 ML BTL IRRIGATION ONE (07:40)
[2020-05-24] MEDS ORDERED: SODIUM CHLORIDE 0.9% 100 ML BAG ONE (07:40)
[2020-05-24] MEDS ORDERED: fentaNYL (PF) 50 MCG/ML 50 ML VIAL ONE (07:40)
[2020-05-24] MEDS ORDERED: ALBUMIN HUMAN 5% (12.5gm) 250 ML BOTTLE IVPB ONE (07:40)
[2020-05-24] MEDS ORDERED: BENZOCAINE/MENTHOL LOZENG 1 EACH LOZENGE MUCOUS MEM PRN (12:52)
[2020-05-24] MEDS ORDERED: DEXMEDETOMIDINE/0.9% NACL(PMX) 400 MCG in EMPTY BAG 1 BAG IV SCH (12:52)
[2020-05-24] MEDS ORDERED: Potassium Replacement Protocol 1 EACH MISC MISCELLANE PRN (12:52)
[2020-05-24] MEDS ORDERED: hydrALAZINE HCL 20 MG/ML 1 ML VIAL IVP PRN (12:52)
[2020-05-24] MEDS ORDERED: METOCLOPRAMIDE 5 MG/ML 2 ML VIAL IVP PRN (12:52)
[2020-05-24] MEDS ORDERED: ONDANSETRON 4 MG/2 ML VIAL IVP PRN (12:52)
[2020-05-24] MEDS ORDERED: AMIODARONE 300 MG in DEXTROSE 5% IN WATER 250 ML IV PRN ×2 (12:52)
[2020-05-24] MEDS ORDERED: Magnesium Replacement Protocol 1 EACH MISC MISCELLANE PRN (12:52)
[2020-05-24] MEDS ORDERED: Phosphorus Replacement Protoco 1 EACH MISC MISCELLANE PRN (12:52)
[2020-05-24] MEDS ORDERED: AMIODARONE 360 MG in DEXTROSE 5% IN WATER 200 ML IV PRN ×2 (12:52)
[2020-05-24] MEDS ORDERED: IPRATROPIUM-ALBUTEROL 3 ML NEB INHALATION PRN (12:52)
[2020-05-24] MEDS ORDERED: DEXTROSE 5% IN WATER 100 ML with AMIODARONE 150 MG IV PRN (12:52)
[2020-05-24] MEDS ORDERED: ALBUMIN HUMAN 5% 250 ML in EMPTY BAG 1 BAG IVPB PRN (12:52)
[2020-05-24] MEDS ORDERED: NITROGLYCERIN-D5W PMX 50 MG in DEXTROSE/WATER 1 250ML.BAG IV SCH (13:15)
[2020-05-24] MEDS ORDERED: INSULIN REGULAR 100 UNIT in SODIUM CHLORIDE 0.9% 100 ML IV SCH (13:30)
--- NOTE | 2020-05-24 13:42 | P.OP ---
Date of Procedure: 05/24/20 Preoperative Diagnosis: Coronary artery disease Postoperative Diagnosis: Same Procedure(s) Performed: Off-pump CABG 4 with endovascular vein harvest and the radial harvest and occlusion of the left atrial appendage Implants: 35mm AtriCure clip Anesthesia: RASHI Surgeon: Oliver Gleason Cartoon Designer #1: Nicholas Del Rosario Cartoon Designer #2: Deyvi Moore Estimated Blood Loss (ml): 200 IV fluids (ml): 2,000 Urine output (ml): 500 Pathology: none sent Condition: stable Disposition: PACU Indications for Procedure: 61-year-old male originally presented with acute coronary syndrome in March. He is found to have severely diminished left ventricular ejection fraction less than 20%. He was also found to have left apical thrombus in the left ventricle. The night of the cath he had a MUSIC HISTORIAN event felt to be consistent with stroke. Was decided to stabilize the patient, anticoagulate him for 4-6 weeks and then repeat a KASSIE. This was done. This demonstrated resolution of the left apical thrombus and somewhat improved left ventricular ejection fraction with an EF of 20-25%. Elective CABG was now scheduled Operative Findings: Left ventricular ejection fraction was 20-25%. There was evidence of subacute infarction of the inferior and lateral tenorio. Coronary were diffusely diseased. The LAD and diagonal were the best targets. The right coronary and intermediate were graftable but heavily diseased. The posterior lateral branch was not considered to be graftable. No other significant coronary arteries noted on the surface of the heart. KASSIE at completion of the procedure demonstrated improved left ventricular function especially improved motion of the interventricular septum and the anterior wall. Cardiac output didn't improve from 3.5-5 following revascularization. This was off any inotropic support. Description of Procedure: The patient was brought to the operating room, placed supine on the operating table, anesthetized and intubated. Right IJ's Bristol-James catheter and radial artery line had been started and preop old. KASSIE probe was placed. KASSIE demonstrated markedly decreased left ventricular ejection fraction around 20%. There was no significant valvular abnormalities noted. There was no evidence of residual thrombus in the apex. The anterior torso and lower extremities and left upper extremity were sterilely prepped and draped. The left radial artery was harvested using endovascular vein harvest technique and was prepared on the back table. Simultaneously the greater saphenous vein was harvested from the left lower extremity extending from the ankle to the thigh. It was of good quality and was prepared on the back table. Simultaneously midline sternotomy was performed, left hemisternum retracted upwards and the left internal mammary artery harvested on a vascular pedicle, left intact on its origin from subclavian and divided distally. There was an excellent conduit. The left pleural space was drained with 32-Belgian chest tube. Once the left arm was closed and dressed it was tucked at the side. Standard sternal retractor was placed. The pericardium was opened in the midline and the heart exposed with pericardial sutures. Patient was systemically heparinized and the a CTs were maintained greater than 250 during grafting. Suction stabilization was used during distal anastomosis. The BERNARDO to the LAD was performed first. The LAD was a 2-2.5 mm vessel running visibly on the anterior wall of the heart. There was palpable disease in the proximal third and it was grafted just beyond this. Was opened and blood flow control with a 2 mm flow through. End to side anastomosis between the BERNARDO and the LAD was performed with running 8-0 Prolene suture. On completion anastomosis the flow through was removed effectively probing the proximal distal portion anastomosis. Suture was tied with good result and hemostasis. Inflow was open. The NERISSA pe dicle was tacked to the surrounding epicardium with 6-0 silk sutures. Saphenous vein and radial artery were not checked. It was decided to put the saphenous vein to the RCA, MARTELL and diagonal and the left radial artery to the intermediate. Right coronary artery was dissected out distally. It was a relatively small vessel with diffuse disease present. It was opened just prior to its bifurcation. 1.5 mm probe threaded through this into the PDA but did not thread into the distal RCA toward the MARTELL. Blood flow was controlled with a 1.5 mill meter flow through. Piece of saphenous vein was cut to appropriate length loaded on passport anastomotic connector and connected to the ascending aorta just above the sinotubular junction in the midline. It was brought around the right AV groove to the right coronary artery. Anastomosis was to the right coronary artery was performed with running 7-0 Prolene suture. On completion the anastomosis the flow through was removed 50 probe the proximal distal portion anastomosis. Suture was tied with good resultant hemostasis and the inflow opened. Heart was lowered into anatomic position. The graft was noted to lay well with more than adequate length. Next the high lateral wall was exposed. The intermediate coronary artery was stabilized. This was a heavily diseased proximal vessel that this appeared intramyocardially. It was dissected out for several centimeters intramyocardially. A remainder diseased vessel but was softer and felt to be graftable. It was opened. A 1.5 mm probe would not pass. Blood flow was controlled with a 1 mm flow through. Anastomosis of the radial artery the intermediate coronary artery was performed with running 7-0 Prolene suture. On completion anastomosis flow through was removed effectively probing the proximal distal portion anastomosis. Good backbleeding was noted from the radial artery. This was controlled with a bulldog clamp. Piece of saphenous vein was now prepared to appropriate length and loaded on passport anastomotic connector. It was connected to the mid ascending aorta to the left of midline brought beneath the BERNARDO to the first diagonal branch. The first diagonal was stabilized. It was a 1.5 mm vessel. It was opened and blood flow control with a 1.5 mm flow through. Anastomosis of the diagonal with the saphenous vein was performed with running 7-0 Prolene suture. On completion anastomosis flow through was removed effectively probing the proximal distal portion of the anastomosis. Inflow was open and the graft was noted to lay well. We next placed 2 bulldog clamps very proximally on the saphenous vein graft to the diagonal. Longitudinal incision was performed in the proximal anastomosis the radial artery was performed with running 7-0 Prolene suture. On completion anastomosis was de-aired by backbleeding. Inflow was opened and grafts lay well. There was no bleeding from any of the anastomoses. We now explored the posterior lateral branch. Was very small vessel that disappeared into the myocardial fat as it came up from the AV groove. We dissected down into the statin dissected the vessel all the way down into the AV groove. It remained a relatively small vessel about 1 mm in diameter with diffuse disease present. It was not felt to be graftable. Due to the patient's poor ventricular function, it was decided to place a occlusion device on the base of the left atrial appendage due to high risk of atrial fibrillation. This was especially apropos given his previous left ventricular thrombus and stroke. The base of the left atrial appendage was measured and a 35 mm AtriCure clip was chosen and applied to the base of the left atrial appendage. This proceeded uneventfully. Heparin was now reversed with protamine. Good hemostasis was obtained throughout. Mediastinum was drained with a 36-Belgian chest tube. Chest was irrigated with antibiotic solution and the sternum closed with 8 sternal wires. Fascia was closed with 0 Ethibond. The leg and arm and been closed with layers of Vicryl suture. Subcutaneous and subcuticular layers in the chest were closed with layers of Vicryl suture. Skin glue and dry sterile dressings were applied and the patient was transferred to the CVICU in stable condition. Should be noted that the KASSIE on completion demonstrated improved left ventricular function particularly of the anterior wall and interventricular septum and the cardiac index it also improved significantly.
[2020-05-24 13:44] LABS: Glucose,Whole Blood 96 mg/dL (75-99)
[2020-05-24 13:53] LABS: Glucose,Whole Blood 91 mg/dL (75-99)
[2020-05-24 13:55] LABS: ABG Base Excess -5.1 mmol/L; ABG HCO3 21 mmol/L (21-25); ABG Oxygen Saturation 99.9 % (94-97); ABG PCO2 40 mmHg (35-45); ABG PH 7.33 (7.35-7.45); ABG PO2 369 mmHg (83-108); ABG TCO2 22 mmol/L (19-24)
[2020-05-24] MEDS: CLEVIDIPINE BUTYRATE 25 MG in EMPTY BAG 1 BAG IV SCH ×3 (14:04→23:23)
[2020-05-24] MEDS: DILTIAZEM 125 MG in SODIUM CHLORIDE 0.9% 100 ML IV SCH ×2 (14:05→22:55)
[2020-05-24] MEDS ORDERED: MUPIROCIN 2% OINT 22 GM TUBE NASAL ONE (14:15)
[2020-05-24 14:17] LABS: Ionized Calcium 4.7 mg/dL (4.5-5.3)
[2020-05-24 14:27] LABS: ALT 9 U/L (4-49); AST 17 U/L (17-59); African American GFR (CKD) >90 (>60 ml/min/1.73 sqM); Albumin 3.4 g/dL (3.5-5.0); Alkaline Phosphatase 32 U/L (38-126); Anion Gap 7 mmol/L; Blood Urea Nitrogen 27 mg/dL (9-20); Calcium 7.4 mg/dL (8.4-10.2); Carbon Dioxide 20 mmol/L (22-30); Chloride 111 mmol/L (98-107); Glucose 84 mg/dL (74-99); Magnesium 1.6 mg/dL (1.6-2.3); Non-African American GFR(CKD) >90 (>60 ml/min/1.73 sqM); Sodium 138 mmol/L (137-145); Total Bilirubin 0.4 mg/dL (0.2-1.3); Total Protein 5.2 g/dL (6.3-8.2)
[2020-05-24 14:30] LABS: INR 1.3 (<1.2)
[2020-05-24 14:31] LABS: Partial Thromboplastin Time 36.1 sec (22.0-30.0); Prothrombin Time 13.1 sec (9.0-12.0)
[2020-05-24 14:47] LABS: Basophils % (A) 0 %; Eosinophils # (A) 0.1 k/uL (0-0.7); Eosinophils % (A) 1 %; HCT 29.6 % (39.0-53.0); Lymphocytes # (A) 1.8 k/uL (1.0-4.8); Lymphocytes % (A) 17 %; MCH 30.8 pg (25.0-35.0); MCHC 33.9 g/dL (31.0-37.0); MCV 90.6 fL (80.0-100.0); Mean Platelet Volume 8.2; Monocytes # (A) 0.5 k/uL (0-1.0); Monocytes % (A) 4 %; Neutrophils # (A) 8.1 k/uL (1.3-7.7); Neutrophils % (A) 77 %; RBC 3.26 m/uL (4.30-5.90); RDW 14.3 % (11.5-15.5); WBC 10.6 k/uL (3.8-10.6)
[2020-05-24] MEDS: MAGNESIUM SULFATE-D5W PMX 1 GM in DEXTROSE/WATER 1 100ML.BAG IVPB SCH ×2 (14:47→15:52)
--- NOTE | 2020-05-24 14:55 | XR ---
EXAMINATION TYPE: XR chest 1V portable DATE OF EXAM: 05/24/2020 COMPARISON: 05/21/2020 INDICATION: Post CABG TECHNIQUE: Single frontal view of the chest is obtained. FINDINGS: The heart size is mildly prominent. The pulmonary vasculature is normal. Left lower lobe infiltrate is present. There is a left-sided chest tube. No pneumothorax is evident. Mediastinal tubes are present. Endotrac heal tube is tip above the jordan. Nasogastric tube transverses the thorax with tip in the proximal l eft upper quadrant. This could be advanced approximately 4 cm. Boody-James catheter is present with the tip in the right main pulmonary artery IMPRESSION: 1. Left lower lobe infiltrate. Correlate for atelectasis. 2. Multiple lines and catheters discussed above. 3. The nasogastric tube could be advanced approximately 4 cm.
[2020-05-24 15:07] LABS: Glucose,Whole Blood 97 mg/dL (75-99)
[2020-05-24 15:32] LABS: Platelet Count 94 k/uL (150-450)
--- NOTE | 2020-05-24 15:37 | P.CNPUL ---
History of Present Illness Consult date: 05/24/20 Requesting physician: Oliver Gleason Reason for consult: dyspnea Chief complaint: Shortness of breath, multivessel coronary artery disease History of present illness: This is a 64-year-old tall white male patient who was hospitalized in March 2020 when he presented to the emergency department with complaints of severe shortness of breath, was diagnosed with non-ST elevated myocardial infarction, and his cardiac workup showed the multivessel coronary artery disease. During the same admission patient experienced acute ischemic stroke involving his right MCA. Transesophageal echocardiogram revealed severely impaired left ventricular systolic function with an EF of 20-25%, and intracardiac thrombus. Repeat transesophageal echocardiogram in April 2020 showed improvement in left matthew tricular systolic function and resolution of the intracardiac thrombus. Patient was referred to CT surgery for possibility of coronary artery bypass grafting. Today on 05/24/2020 patient underwent off-pump CABG 4 with endovascular vein harvest and the radial harvest and occlusion of the left atrial appendage. Patient is seen in the intensive care unit following his surgery he is sedated and intubated on mechanical ventilator, with assist-control mode of ventilation with a rate of 12, tidal volumes 500, FiO2 is 50% and PEEP of 5. His postoperative blood gases showed pO2 of 369, pCO2 40, pH of 7.3, is was on FiO2 of 100%, and it has since been dropped to 50%. Hemodynamically stable, main tenance IV drips of 0.9 normal saline at a rate of 50 ML per hour, Cardizem is a 5 mg per hour, nitroglycerin is at 5 mics per kilo per minute, and improving is at 20 mics per kilo per minute. Patient is in sinus mechanism with a bradycardic rate of 51 BPM, PA pressure 35/20, cardiac output is 4.2, cardiac index is 2.2. Mediastinal and left pleural chest tube is why connected together, with a total of 180 cc of sanguinous output in the Pleur-evac which is connected to wall suction, with no evidence of air leak. Postoperative chest x- ray shows left lower lobe infiltrate likely related to atelectasis, ET tube, PA catheter in appropriate positions. Review of Systems All systems: negative Constitutional: Denies chills, Denies fever Eyes: denies blurred vision, denies pain Ears, nose, mouth and throat: Denies headache, Denies sore throat Cardiovascular: Denies chest pain, Denies shortness of breath Respiratory: Reports dyspnea, Denies cough Gastrointestinal: Denies abdominal pain, Denies diarrhea, Denies nausea, Denies vomiting Musculoskeletal: Denies myalgias Integumentary: Denies pruritus, Denies rash Neurological: Denies numbness, Denies weakness Psychiatric: Denies anxiety, Denies depression Endocrine: Denies fatigue, Denies weight change Past Medical History Past Medical History: Coronary Artery Disease (CAD), Heart Failure, CVA/TIA, Myocardial Infarction ([place]) Additional Past Medical History / Comment(s): hospitalized 03/29/20 with stroke with left hand weakness, CHF, episode of a -fib , Left ventricular thrombus., previous cva's found on testing., Hx of AAA repair 2004 and due to stents he is unable to have MRI greater than 3.5*. , tinnitus , hx diverticulitis. Last Myocardial Infarction Date:: 03/29/20 History of Any Multi-Drug Resistant Organisms: None Reported Past Surgical History: Heart Catheterization, Orthopedic Surgery, Tonsillectomy Additional Past Surgical History / Comment(s): bypass sx in left leg, AAA repair 2004, jason carpal tunnel, rt hand X2, KASSIE. Past Anesthesia/Blood Transfusion Reactions: No Reported Reaction Additional Past Anesthesia/Blood Transfusion Reaction / Comment(s): . Past Psychological History: No Psychological Hx Reported Smoking Status: Former smoker Past Alcohol Use History: None Reported Additional Past Alcohol Use History / Comment(s): Quit Smoking 04/10/20, smoked approx 1/2ppd, started smoking 1976. Past Drug Use History: None Reported - Past Family History Mother Family Medical History: COPD Father Additional Family Medical History / Comment(s): from Brain aneurysm family Family Medical History: No Reported History Medications and Allergies Home Medications Medication Instructions Recorded Confirmed Type Apixaban [Eliquis] 5 mg PO BID #30 tab 04/01/20 05/17/20 Rx Aspirin 81 mg PO DAILY #30 chew 04/01/20 05/17/20 Rx Clopidogrel [Plavix] 75 mg PO DAILY #30 tab 04/01/20 05/17/20 Rx lisinopriL [Zestril] 20 mg PO QAM 04/23/20 05/22/20 History Atorvastatin [Lipitor] 40 mg PO QAM 05/17/20 05/17/20 History carvediloL [Coreg] 6.25 mg PO BID 05/17/20 05/17/20 History Allergies Allergy/AdvReac Type Severity Reaction Status Date / Time Tetracyclines Allergy "made me Verified 05/24/20 05:48 sleep for a week" Physical Exam Vitals: Vital Signs Temp Pulse Pulse Pulse Resp BP BP 05/24/20 14:30 52 L 14 05/24/20 14:15 52 L 17 128/67 05/24/20 14:00 52 L 18 05/24/20 13:45 52 L 13 110/64 05/24/20 13:30 92.7 F L 51 L 13 05/24/20 05:57 97.7 F 74 75 16 135/84 BP Pulse Ox 05/24/20 14:30 100 05/24/20 14:15 100 05/24/20 14:00 100 05/24/20 13:45 100 05/24/20 13:30 100 05/24/20 05:57 129/83 98 Intake and Output 05/24/20 05/24/20 05/24/20 06:59 14:59 22:59 Intake Total 100 34 Output Total 1000 Balance 100 -966 Intake: IV 100 34 Output: Urine 400 Estimated Blood Loss 600 Other: Weight 76.8 kg ABP, PAP, CO, CI - Last 8 Hours Arterial Blood Pressure 114/55 Arterial Blood Pressure 129/59 Arterial Blood Pressure 127/56 Arterial Blood Pressure 118/56 Arterial Blood Pressure 97/46 Pulmonary Artery Pressure 35/20 Pulmonary Artery Pressure 37/21 Pulmonary Artery Pressure 38/22 Pulmonary Artery Pressure 37/22 Pulmonary Artery Pressure 33/16 Cardiac Output 4.2 Cardiac Output 3.8 Cardiac Index 2.2 Cardiac Index 2 GENERAL EXAM: Sedated, intubated 64-year-old white male, comfortable in no apparent distress. HEAD: Normocephalic/atraumatic. EYES: Normal reaction of pupils, equal size. Conjunctiva pink, sclera white. NOSE: Clear with pink turbinates. THROAT: No erythema or exudates. NECK: No masses, no JVD, no thyroid enlargement, no adenopathy. CHEST: No chest wall deformity. Symmetrical expansion. Midsternal incision clean dry and intact, 1 mediastinal and one left pleural chest tube was connected together with 180 mL of saline was output in the Pleur-evac with no evidence of air leak LUNGS: Equal air entry with no crackles, wheeze, rhonchi or dullness. CVS: Regular rate and rhythm, normal S1 and S2, no gallops, no murmurs, no rubs ABDOMEN: Soft, nontender. No hepatosplenomegaly, normal bowel sounds, no guarding or rigidity. EXTREMITIES: No clubbing, no edema, no cyanosis, 2+ pulses and upper and lower extremities. MUSCULOSKELETAL: Muscle strength and tone normal. Left radial artery harvest site clean dry and intact, with CASIMIRO drain compressed and drain small amount of single is output, left leg venous graft harvest site wrapped in Regan dressings, and dry and intact SPINE: No scoliosis or deformity SKIN: No rashes CENTRAL NERVOUS SYSTEM: Sedated No focal deficits, tone is normal in all 4 extremities. Results - Laboratory Findings CBC and BMP: 05/24/20 13:29 05/24/20 13:29 ABG ABG pH 7.33 (7.35-7.45) L 05/24/20 13:50 ABG pCO2 40 mmHg (35-45) 05/24/20 13:50 ABG pO2 369 mmHg (83-108) H 05/24/20 13:50 ABG O2 Saturation 99.9 % (94-97) H 05/24/20 13:50 PT/INR, D-dimer PT 13.1 sec (9.0-12.0) H 05/24/20 13:29 INR 1.3 (<1.2) H 05/24/20 13:29 Abnormal lab findings: Abnormal Labs 05/21/20 05/24/20 05/24/20 08:00 06:20 13:29 RBC 3.26 L Hgb 10.0 L D Hct 29.6 L Neutrophils # 8.1 H PT INR APTT ABG pH ABG pO2 ABG O2 Saturation Chloride 108 H Carbon Dioxide 21 L BUN 35 H Calcium Alkaline Phosphatase Total Protein Albumin Crossmatch See Detail 05/24/20 05/24/20 05/24/20 13:29 13:29 13:50 RBC Hgb Hct Neutrophils # PT 13.1 H INR 1.3 H APTT 36.1 H ABG pH 7.33 L ABG pO2 369 H ABG O2 Saturation 99.9 H Chloride 111 H Carbon Dioxide 20 L BUN 27 H Calcium 7.4 L Alkaline Phosphatase 32 L Total Protein 5.2 L Albumin 3.4 L Crossmatch - Diagnostic Findings Chest x-ray: report reviewed, image reviewed Assessment and Plan Plan: Assessment: #1. Symptomatic multivessel coronary artery disease, status post four-vessel coronary artery bypass grafting with BERNARDO to the LAD, radial arterial graft to intermediate coronary artery, SVG to the diagonal, SVG to the RCA, with left radial artery harvest, left leg endoscopic vein harvest, and exclusion of the left atrial appendage, postoperative day 0 #2. Recent history of non-ST elevated myocardial infarction in March 2020 #3. Recent history of ischemic stroke involving the right MCA in March 2020 #4. Severe ischemic cardiomyopathy with EF of 20-25%, with the recent documente d improvement up to 40% on most recent transesophageal echocardiogram #5. Intracardiac thrombus in the left ventricle seen on the transesophageal echocardiogram from March 2020, resolved #6. Paroxysmal atrial fibrillation #7. Hypertension #8. Hyperlipidemia #9. Chronic ongoing tobacco dependence #10. History of peripheral arterial disease status post aorto bifemoral bypass in 2004 Plan: Postoperative blood gases, chest x-ray has been reviewed and necessary adjustments have been made, continue weaning FiO2 per protocol, proceed with spontaneous awakening trials spontaneous breathing trials and the patient is awake and following commands. Hemodynamically stable, no vasoactive drips. No significant output from the chest tubes. Postoperative labs have been reviewed. Continue nebulized bronchodilators every 4 hours while on the vent, 4 times a day and when necessary once extubated. Incentive spirometry to bedside once extubated. Continue weaning per protocol. GI and DVT prophylaxis per CT surgery. Daily labs and daily chest x-rays. Continue to closely monitor in the intensive care unit I performed a history & physical examination of the patient and discussed their management with my nurse practitioner, Deedee Turcios. I reviewed the nurse practitioner's note and agree with the documented findings and plan of care. Lung sounds are positive for clear breath sounds. The findings and the impression was discussed with the patient. I attest to the documentation by the nurse practitioner. Time with Patient: Greater than 30
[2020-05-24] MEDS ORDERED: IPRATROPIUM-ALBUTEROL 3 ML NEB INHALATION SCH (16:00)
[2020-05-24 16:04] LABS: Glucose,Whole Blood 137 mg/dL (75-99)
[2020-05-24 16:17] LABS: Basophils % (A) 0 %; Eosinophils # (A) 0.2 k/uL (0-0.7); Eosinophils % (A) 2 %; HCT 29.1 % (39.0-53.0); HGB 9.5 gm/dL (13.0-17.5); Lymphocytes # (A) 2.1 k/uL (1.0-4.8); Lymphocytes % (A) 17 %; MCH 29.6 pg (25.0-35.0); MCHC 32.5 g/dL (31.0-37.0); MCV 91.1 fL (80.0-100.0); Mean Platelet Volume 8.9; Monocytes # (A) 0.6 k/uL (0-1.0); Monocytes % (A) 5 %; Neutrophils # (A) 9.6 k/uL (1.3-7.7); Neutrophils % (A) 76 %; Platelet Count 101 k/uL (150-450); RDW 14.8 % (11.5-15.5); WBC 12.6 k/uL (3.8-10.6)
[2020-05-24 17:10] LABS: Glucose,Whole Blood 154 mg/dL (75-99)
[2020-05-24 18:19] LABS: Glucose,Whole Blood 149 mg/dL (75-99)
[2020-05-24] MEDS: ACETAMINOPHEN IV (For NPO) 1,000 MG in EMPTY BAG 1 BAG IVPB SCH ×2 (18:21→23:22)
[2020-05-24 18:41] LABS: ABG Base Excess -5.3 mmol/L; ABG HCO3 21 mmol/L (21-25); ABG Oxygen Saturation 93.2 % (94-97); ABG PCO2 38 mmHg (35-45); ABG PH 7.34 (7.35-7.45); ABG PO2 66 mmHg (83-108); ABG TCO2 22 mmol/L (19-24)
[2020-05-24 18:47] LABS: Basophils % (A) 0 %; Eosinophils # (A) 0.1 k/uL (0-0.7); Eosinophils % (A) 1 %; HCT 30.3 % (39.0-53.0); HGB 10.3 gm/dL (13.0-17.5); Lymphocytes # (A) 0.8 k/uL (1.0-4.8); Lymphocytes % (A) 6 %; MCH 30.6 pg (25.0-35.0); MCV 90.2 fL (80.0-100.0); Mean Platelet Volume 9.2; Monocytes # (A) 0.7 k/uL (0-1.0); Monocytes % (A) 6 %; Neutrophils # (A) 11.2 k/uL (1.3-7.7); Neutrophils % (A) 87 %; Platelet Count 116 k/uL (150-450); RBC 3.36 m/uL (4.30-5.90); RDW 14.5 % (11.5-15.5); WBC 12.8 k/uL (3.8-10.6)
[2020-05-24 18:48] LABS: Allen Test Performed? no
[2020-05-24 19:10] LABS: Glucose,Whole Blood 140 mg/dL (75-99)
[2020-05-24 20:12] LABS: Glucose,Whole Blood 121 mg/dL (75-99)
[2020-05-24] MEDS: IPRATROPIUM-ALBUTEROL 3 ML NEB INHALATION SCH ×2 (20:37→20:38)
[2020-05-24] MEDS: HEPARIN SODIUM,PORCINE 5,000 UNIT/ML 1 ML VIAL SQ SCH (21:17)
[2020-05-24 21:21] LABS: Glucose,Whole Blood 101 mg/dL (75-99)
[2020-05-24 22:17] LABS: Glucose,Whole Blood 118 mg/dL (75-99)
[2020-05-24 23:44] LABS: Glucose,Whole Blood 134 mg/dL (75-99)
[2020-05-25 00:28] LABS: Glucose,Whole Blood 123 mg/dL (75-99)
[2020-05-25 01:12] LABS: Glucose,Whole Blood 128 mg/dL (75-99)
[2020-05-25 03:15] LABS: Glucose,Whole Blood 135 mg/dL (75-99)
[2020-05-25 04:01] LABS: Glucose,Whole Blood 127 mg/dL (75-99)
[2020-05-25 04:18] LABS: Ionized Calcium 4.8 mg/dL (4.5-5.3)
[2020-05-25 04:22] LABS: Basophils % (A) 0 %; Eosinophils % (A) 0 %; HCT 31.2 % (39.0-53.0); HGB 10.2 gm/dL (13.0-17.5); Lymphocytes # (A) 0.7 k/uL (1.0-4.8); Lymphocytes % (A) 4 %; MCH 29.5 pg (25.0-35.0); MCHC 32.7 g/dL (31.0-37.0); MCV 90.1 fL (80.0-100.0); Mean Platelet Volume 8.5; Monocytes # (A) 0.8 k/uL (0-1.0); Monocytes % (A) 6 %; Neutrophils # (A) 13.2 k/uL (1.3-7.7); Neutrophils % (A) 89 %; Platelet Count 117 k/uL (150-450); RBC 3.46 m/uL (4.30-5.90); RDW 14.8 % (11.5-15.5); WBC 14.8 k/uL (3.8-10.6)
[2020-05-25 04:27] LABS: ALT 10 U/L (4-49); AST 23 U/L (17-59); African American GFR (CKD) >90 (>60 ml/min/1.73 sqM); Albumin 3.6 g/dL (3.5-5.0); Alkaline Phosphatase 37 U/L (38-126); Anion Gap 6 mmol/L; Blood Urea Nitrogen 22 mg/dL (9-20); Calcium 8.2 mg/dL (8.4-10.2); Carbon Dioxide 19 mmol/L (22-30); Chloride 110 mmol/L (98-107); Glucose 122 mg/dL (74-99); Magnesium 2.1 mg/dL (1.6-2.3); Non-African American GFR(CKD) >90 (>60 ml/min/1.73 sqM); Potassium 4.4 mmol/L (3.5-5.1); Sodium 135 mmol/L (137-145); Total Bilirubin 0.8 mg/dL (0.2-1.3); Total Protein 5.6 g/dL (6.3-8.2)
[2020-05-25] MEDS: HYDROcodone/APAP 5-325MG 1 EACH TAB PO PRN ×4 (05:04→20:38)
[2020-05-25 06:12] LABS: Glucose,Whole Blood 152 mg/dL (75-99)
[2020-05-25] MEDS: CLEVIDIPINE BUTYRATE 25 MG in EMPTY BAG 1 BAG IV SCH ×3 (06:49→22:28)
[2020-05-25] MEDS ORDERED: carvediloL 3.125 MG TAB PO SCH (07:30)
--- NOTE | 2020-05-25 07:40 | XR ---
EXAMINATION TYPE: XR chest 1V portable DATE OF EXAM: 05/25/2020 COMPARISON: 05/24/2020 INDICATION: Postop cardiac surgery TECHNIQUE: Single frontal view of the chest is obtained. FINDINGS: The heart size is enlarged. The pulmonary vasculature is normal. Mild infiltrate is at the right base increasing from comparison. Mild left lower lobe infiltrate is p resent may have mild improvement. Wyatt-James catheter is present with the tip in the more distal right main pulmonary artery. Mediastina l tube and left-sided chest tube remain present. No pneumothorax is evident. Nasogastric tube is been removed. Endotracheal tube is been removed. IMPRESSION: 1. Small atelectasis at the right base. Improving left lower lobe infiltrate. 2. Lines and catheters discussed above.
[2020-05-25 07:56] LABS: Glucose,Whole Blood 136 mg/dL (75-99)
[2020-05-25] MEDS: IPRATROPIUM-ALBUTEROL 3 ML NEB INHALATION SCH ×4 (08:31→20:24)
[2020-05-25] MEDS: HEPARIN SODIUM,PORCINE 5,000 UNIT/ML 1 ML VIAL SQ SCH ×2 (08:36→16:00)
[2020-05-25] MEDS: ASPIRIN 325 MG TAB PO SCH (08:37)
[2020-05-25] MEDS: ATORVASTATIN 40 MG TAB PO SCH (08:37)
[2020-05-25] MEDS: SODIUM CHLORIDE 0.9% 1,000 ML IV SCH (08:37)
[2020-05-25] MEDS: CLOPIDOGREL 75 MG TAB PO SCH (08:37)
[2020-05-25] MEDS: amLODIPine 5 MG TAB PO SCH (08:37)
[2020-05-25] MEDS ORDERED: bisacodyL 10 MG SUPP RECTAL PRN (09:00)
[2020-05-25] MEDS ORDERED: PANTOPRAZOLE 40 MG/10 ML VIAL IVP SCH (09:00)
[2020-05-25] MEDS ORDERED: METOPROLOL TARTRATE 12.5 MG TAB PO SCH (09:00)
[2020-05-25] MEDS ORDERED: MAGNESIUM HYDROXIDE 2,400 MG/10 ML CUP PO PRN (09:00)
--- NOTE | 2020-05-25 09:15 | P.PN ---
<Alba Christian - Last Filed: 05/25/20 09:08> Subjective Progress Note Date: 05/25/20 Principal diagnosis: Multivessel coronary artery disease. Previous medical history of recent non- STEMI, systolic heart failure/ischemic cardiomyopathy with most recent EF 35% improved from 20-25%, left ventricular thrombus, moderate mitral valve regurgitation, recent ischemic stroke, paroxysmal atrial fibrillation, hypertension, hyperlipidemia, chronic and ongoing tobacco dependence with FEV1 111% of predicted, peripheral arterial disease status post aortobifemoral bypass in 2004. POD #1 off-pump coronary artery bypass graft 4, left internal mammary artery to the left anterior descending artery, reverse saphenous vein graft from the aorta to the right coronary artery, radial artery to the intermediate coronary artery, and reverse saphenous vein graft from the aorta to the first diagonal branch. Endovascular left greater saphenous vein harvest from the ankle to the thigh. Left radial artery harvest. Occlusion of the left atrial appendage with a 35 mm AtriCure clip Postoperative acute blood loss anemia and thrombocytopenia, expected, dilutional Patient's currently sitting up in a recliner in the intensive care unit in no acute distress. He was successfully extubated last night at 18:53. Does complain of postoperative chest pain and pain in his chest tube insertion sites, denies shortness of breath. Remains in normal sinus rhythm and hemodynamically stable on small dose of Cleviprex, nitro, Cardizem. Right internal jugular [place]/Cordis, right radial arterial line, mediastinal/left pleural chest tubes all remaining present. No new concerns. Objective - Vital Signs Vital signs: Vital Signs Temp 99.0 F 05/25/20 04:00 Pulse 71 05/25/20 07:00 Resp 27 H 05/25/20 07:00 BP 127/73 05/25/20 06:00 Pulse Ox 99 05/25/20 07:00 Intake & Output 05/24/20 05/25/20 05/25/20 18:59 06:59 18:59 Intake Total 2906.566 5888.420 59 Output Total 1753 1258 60 Balance -438.694 -191.580 -1 Weight 84.4 kg Intake: IV 249 629 59 CO/CI 170 130 20 Pressure bags 45 99 9 Sodium Chloride 0.9% 1, 400 30 000 ml @ 20 mls/hr IV . Q24H [facility] Rx#:[id number] Intake, IV Titration 1065.306 437.420 Amount ACETAMINOPHEN IV (For NPO 100 ) 1,000 mg In Empty Bag 1 bag @ 400 mls/hr IVPB Q6HR [facility] Rx#:[id number] Albumin Human 5% 250 ml 500 In Empty Bag 1 bag @ 250 mls/hr IVPB Q1HR PRN Rx#: [id number] Clevidipine Butyrate 25 0.333 58.400 mg In Empty Bag 1 bag @ 1 MG/HR 2 mls/hr IV .Q24H [facility] Rx#:[id number] Diltiazem 125 mg In 44.167 Sodium Chloride 0.9% 100 ml @ 5 MG/HR 5 mls/hr IV .Q24H [facility] Rx#:[id number] Insulin Regular 100 unit 2.071 9.503 In Sodium Chloride 0.9% 100 ml @ Per Protocol IV .Q0M [facility] Rx#:[id number] Magnesium Sulfate-D5w Pmx 200 1 gm In Dextrose/Water 1 100ml.bag @ 100 mls/hr IVPB Q1H [facility] Rx#: [id number] Nitroglycerin-D5w Pmx 50 25.35 mg In Dextrose/Water 1 250ml.bag @ 5 MCG/MIN 1.5 mls/hr IV .Q24H [facility] Rx#: [id number] Sodium Chloride 0.9% 1, 250 200 000 ml @ 20 mls/hr IV . Q24H [facility] Rx#:[id number] ceFAZolin 2 gm In Sodium 100 Chloride 0.9% 50 ml @ 100 mls/hr IVPB Q8H [facility] Rx#: [id number] propofoL 1,000 mg In 12.902 Empty Bag 1 bag @ Titrate IV .Q0M [facility] Rx#: [id number] Output: Chest Tube Drainage 520 670 40 Left Pleural/Mediastinal 520 670 40 Drainage 0 10 Left Arm 0 10 Urine 633 578 20 Estimated Blood Loss 600 Other: Voiding Method Indwelling Catheter Indwelling Catheter ABP, PAP, CO, CI - Last Documented Arterial Blood Pressure 138/50 Pulmonary Artery Pressure 26/11 Cardiac Output 4.5 Cardiac Index 2.4 - Constitutional General appearance: Present: cooperative, no acute distress - Respiratory Details: Lungs sounds diminished bilaterally. Respirations even, nonlabored. Currently on 4 L nasal cannula with oxygen saturation 96%. Able to achieve 500-750 mL on his incentive spirometry. Weak cough. Mediastinal/left pleural chest tube present to continuous wall suction, small intermittent air leak present. 120 mL serosanguineous drainage overnight, 1150 mL since surgery. - Cardiovascular Details: S1, S2 present. Regular rate and rhythm, sinus rhythm on telemetry. Sternum stable. Palpable peripheral pulses bilaterally. No edema present. No calf pain or tenderness noted. Right internal jugular [place]/Cordis, right radial arterial line present. Last CO/CI 3.7/2.0. Heart hugger in place with patient demonstrating appropriate use. Antiembolism stockings, SCDs present. - Gastrointestinal Gastrointestinal Comment(s): Abdomen soft, nontender, nondistended. Hypoactive bowel sounds present 4 quadrants. Tolerating clear liquids. Positive belching, negative flatus. - Genitourinary Genitourinary Comment(s): Clemens present draining clear, yellow urine. Output 35-75 mL/h overnight - Integumentary Integumentary Comment(s): Skin is warm and dry with evidence of good perfusion. Anterior chest incision well approximated and covered with dry intact dressing. Left radial artery harvest site well approximated, skin is warm and pink, good cap refill, patient able to wiggle all fingers and on air talent appropriately, denies any numbness. Left lower extremity EVH site well approximated - Neurologic Neurologic: Present: CNII-XII intact - Musculoskeletal Musculoskeletal: Present: gait normal, strength equal bilaterally - Psychiatric Psychiatric: Present: A&O x's 3, appropriate affect, intact judgment & insight - Allied health notes Allied health notes reviewed: nursing - Labs CBC & Chem 7: 05/25/20 04:00 05/25/20 04:00 Labs: Abnormal Lab Results - Last 24 Hours (Table) 05/21/20 05/24/20 05/24/20 Range/Units 08:00 13:29 13:29 WBC (3.8-10.6) k/uL RBC 3.26 L (4.30-5.90) m/uL Hgb 10.0 L D (13.0-17.5) gm/dL Hct 29.6 L (39.0-53.0) % Plt Count 94 L (150-450) k/uL Neutrophils # 8.1 H (1.3-7.7) k/uL Lymphocytes # (1.0-4.8) k/uL PT 13.1 H (9.0-12.0) sec INR 1.3 H (<1.2) APTT 36.1 H (22.0-30.0) sec ABG pH (7.35-7.45) ABG pO2 (83-108) mmHg ABG O2 Saturation (94-97) % Sodium (137-145) mmol/L Chloride (98-107) mmol/L Carbon Dioxide (22-30) mmol/L BUN (9-20) mg/dL Glucose (74-99) mg/dL POC Glucose (mg/dL) (75-99) mg/dL Calcium (8.4-10.2) mg/dL Alkaline Phosphatase (38-126) U/L Total Protein (6.3-8.2) g/dL Albumin (3.5-5.0) g/dL Crossmatch See Detail 05/24/20 05/24/20 05/24/20 Range/Units 13:29 13:50 16:03 WBC (3.8-10.6) k/uL RBC (4.30-5.90) m/uL Hgb (13.0-17.5) gm/dL Hct (39.0-53.0) % Plt Count (150-450) k/uL Neutrophils # (1.3-7.7) k/uL Lymphocytes # (1.0-4.8) k/uL PT (9.0-12.0) sec INR (<1.2) APTT (22.0-30.0) sec ABG pH 7.33 L (7.35-7.45) ABG pO2 369 H (83-108) mmHg ABG O2 Saturation 99.9 H (94-97) % Sodium (137-145) mmol/L Chloride 111 H (98-107) mmol/L Carbon Dioxide 20 L (22-30) mmol/L BUN 27 H (9-20) mg/dL Glucose (74-99) mg/dL POC Glucose (mg/dL) 137 H (75-99) mg/dL Calcium 7.4 L (8.4-10.2) mg/dL Alkaline Phosphatase 32 L (38-126) U/L Total Protein 5.2 L (6.3-8.2) g/dL Albumin 3.4 L (3.5-5.0) g/dL Crossmatch 05/24/20 05/24/20 05/24/20 Range/Units 16:04 17:04 17:59 WBC 12.6 H (3.8-10.6) k/uL RBC 3.20 L (4.30-5.90) m/uL Hgb 9.5 L (13.0-17.5) gm/dL Hct 29.1 L (39.0-53.0) % Plt Count 101 L (150-450) k/uL Neutrophils # 9.6 H (1.3-7.7) k/uL Lymphocytes # (1.0-4.8) k/uL PT (9.0-12.0) sec INR (<1.2) APTT (22.0-30.0) sec ABG pH (7.35-7.45) ABG pO2 (83-108) mmHg ABG O2 Saturation (94-97) % Sodium (137-145) mmol/L Chloride (98-107) mmol/L Carbon Dioxide (22-30) mmol/L BUN (9-20) mg/dL Glucose (74-99) mg/dL POC Glucose (mg/dL) 154 H 149 H (75-99) mg/dL Calcium (8.4-10.2) mg/dL Alkaline Phosphatase (38-126) U/L Total Protein (6.3-8.2) g/dL Albumin (3.5-5.0) g/dL Crossmatch 05/24/20 05/24/20 05/24/20 Range/Units 18:35 18:38 19:01 WBC 12.8 H (3.8-10.6) k/uL RBC 3.36 L (4.30-5.90) m/uL Hgb 10.3 L (13.0-17.5) gm/dL Hct 30.3 L (39.0-53.0) % Plt Count 116 L (150-450) k/uL Neutrophils # 11.2 H (1.3-7.7) k/uL Lymphocytes # 0.8 L (1.0-4.8) k/uL PT (9.0-12.0) sec INR (<1.2) APTT (22.0-30.0) sec ABG pH 7.34 L (7.35-7.45) ABG pO2 66 L (83-108) mmHg ABG O2 Saturation 93.2 L (94-97) % Sodium (137-145) mmol/L Chloride (98-107) mmol/L Carbon Dioxide (22-30) mmol/L BUN (9-20) mg/dL Glucose (74-99) mg/dL POC Glucose (mg/dL) 140 H (75-99) mg/dL Calcium (8.4-10.2) mg/dL Alkaline Phosphatase (38-126) U/L Total Protein (6.3-8.2) g/dL Albumin (3.5-5.0) g/dL Crossmatch 05/24/20 05/24/20 05/24/20 Range/Units 20:03 21:12 22:08 WBC (3.8-10.6) k/uL RBC (4.30-5.90) m/uL Hgb (13.0-17.5) gm/dL Hct (39.0-53.0) % Plt Count (150-450) k/uL Neutrophils # (1.3-7.7) k/uL Lymphocytes # (1.0-4.8) k/uL PT (9.0-12.0) sec INR (<1.2) APTT (22.0-30.0) sec ABG pH (7.35-7.45) ABG pO2 (83-108) mmHg ABG O2 Saturation (94-97) % Sodium (137-145) mmol/L Chloride (98-107) mmol/L Carbon Dioxide (22-30) mmol/L BUN (9-20) mg/dL Glucose (74-99) mg/dL POC Glucose (mg/dL) 121 H 101 H 118 H (75-99) mg/dL Calcium (8.4-10.2) mg/dL Alkaline Phosphatase (38-126) U/L Total Protein (6.3-8.2) g/dL Albumin (3.5-5.0) g/dL Crossmatch 05/24/20 05/25/20 05/25/20 Range/Units 23:09 00:24 01:11 WBC (3.8-10.6) k/uL RBC (4.30-5.90) m/uL Hgb (13.0-17.5) gm/dL Hct (39.0-53.0) % Plt Count (150-450) k/uL Neutrophils # (1.3-7.7) k/uL Lymphocytes # (1.0-4.8) k/uL PT (9.0-12.0) sec INR (<1.2) APTT (22.0-30.0) sec ABG pH (7.35-7.45) ABG pO2 (83-108) mmHg ABG O2 Saturation (94-97) % Sodium (137-145) mmol/L Chloride (98-107) mmol/L Carbon Dioxide (22-30) mmol/L BUN (9-20) mg/dL Glucose (74-99) mg/dL POC Glucose (mg/dL) 134 H 123 H 128 H (75-99) mg/dL Calcium (8.4-10.2) mg/dL Alkaline Phosphatase (38-126) U/L Total Protein (6.3-8.2) g/dL Albumin (3.5-5.0) g/dL Crossmatch 05/25/20 05/25/20 05/25/20 Range/Units 03:14 03:59 04:00 WBC 14.8 H (3.8-10.6) k/uL RBC 3.46 L (4.30-5.90) m/uL Hgb 10.2 L (13.0-17.5) gm/dL Hct 31.2 L (39.0-53.0) % Plt Count 117 L (150-450) k/uL Neutrophils # 13.2 H (1.3-7.7) k/uL Lymphocytes # 0.7 L (1.0-4.8) k/uL PT (9.0-12.0) sec INR (<1.2) APTT (22.0-30.0) sec ABG pH (7.35-7.45) ABG pO2 (83-108) mmHg ABG O2 Saturation (94-97) % Sodium (137-145) mmol/L Chloride (98-107) mmol/L Carbon Dioxide (22-30) mmol/L BUN (9-20) mg/dL Glucose (74-99) mg/dL POC Glucose (mg/dL) 135 H 127 H (75-99) mg/dL Calcium (8.4-10.2) mg/dL Alkaline Phosphatase (38-126) U/L Total Protein (6.3-8.2) g/dL Albumin (3.5-5.0) g/dL Crossmatch 05/25/20 05/25/20 Range/Units 04:00 06:11 WBC (3.8-10.6) k/uL RBC (4.30-5.90) m/uL Hgb (13.0-17.5) gm/dL Hct (39.0-53.0) % Plt Count (150-450) k/uL Neutrophils # (1.3-7.7) k/uL Lymphocytes # (1.0-4.8) k/uL PT (9.0-12.0) sec INR (<1.2) APTT (22.0-30.0) sec ABG pH (7.35-7.45) ABG pO2 (83-108) mmHg ABG O2 Saturation (94-97) % Sodium 135 L (137-145) mmol/L Chloride 110 H (98-107) mmol/L Carbon Dioxide 19 L (22-30) mmol/L BUN 22 H (9-20) mg/dL Glucose 122 H (74-99) mg/dL POC Glucose (mg/dL) 152 H (75-99) mg/dL Calcium 8.2 L (8.4-10.2) mg/dL Alkaline Phosphatase 37 L (38-126) U/L Total Protein 5.6 L (6.3-8.2) g/dL Albumin (3.5-5.0) g/dL Crossmatch - Imaging and Cardiology Chest x-ray: report reviewed, image reviewed Assessment and Plan Assessment: 1. Multivessel coronary artery disease, status post four-vessel off-pump CABG 2. History of recent non-STEMI 3. Systolic heart failure/ischemic cardiomyopathy with most recent EF 35% improved from 20-25%, left ventricular thrombus, moderate mitral valve regurgitation 4. Recent ischemic stroke 5. Paroxysmal atrial fibrillation, on Eliquis for anticoagulation, currently in sinus, status post left atrial appendage ligation with 35 mm AtriCure clip 6. Hypertension 7. Hyperlipidemia, cholesterol 243, LDL 185 8. Chronic and ongoing tobacco dependence with FEV1 111% of predicted post bronchodilator 9. Peripheral arterial disease status post aortobifemoral bypass in 2004. 10. Postoperative acute blood loss anemia and from sit opinion, expected Plan: 1. Continue aspirin, statin, Plavix, beta mona therapy. Will increase beta mona as tolerated. 2. Wean O2 as tolerated. Bronchodilators per pulmonology. Encourage incentive spirometry 10 times every hour while awake 3. Increase activity, ambulate as tolerated. PT/OT/cardiac rehab consulted 4. Discontinue IV nitro. Norvasc added for radial artery spasm prophylaxis, discontinue IV Cardizem. Do not discontinue CCB without discussing with cardiac surgery 5. Discontinue [place]. Connect Cordis to continuous CVP monitoring 6. Will monitor daily labs and x-rays. Electrolyte replacement per protocol. No transfusion necessary at this time 7. GI/DVT prophylaxis 8. Insulin management per primary care service 9. Pain control with current medication regimen 10. Continue mediastinal, left pleural chest tubes for another 24 hours 11. Continue Clemens catheter for another 24 hours for strict accurate intake and output. Daily weights. 12. More recommendations to follow based on patient's progress Seen and examined and agree with above Time with Patient: Greater than 30 <Terence Mendoza - Last Filed: 05/25/20 11:03> Objective - Vital Signs Vital signs: Vital Signs Temp 99.0 F 05/25/20 04:00 Pulse 73 05/25/20 09:00 Resp 25 H 05/25/20 09:00 BP 127/73 05/25/20 06:00 Pulse Ox 95 05/25/20 09:00 Intake & Output 05/24/20 05/25/20 05/25/20 18:59 06:59 18:59 Intake Total 8640.630 9875.420 229.833 Output Total 1753 1258 220 Balance -438.694 -191.580 9.833 Weight 84.4 kg 84.4 kg Intake: IV 249 629 177 CO/CI 170 130 60 Diltiazem 125 mg In 10 Sodium Chloride 0.9% 100 ml @ 5 MG/HR 5 mls/hr IV .Q24H [facility] Rx#:[id number] Pressure bags 45 99 27 Sodium Chloride 0.9% 1, 400 80 000 ml @ 20 mls/hr IV . Q24H [facility] Rx#:[id number] Intake, IV Titration 1065.306 437.420 52.833 Amount ACETAMINOPHEN IV (For NPO 100 ) 1,000 mg In Empty Bag 1 bag @ 400 mls/hr IVPB Q6HR [facility] Rx#:[id number] Albumin Human 5% 250 ml 500 In Empty Bag 1 bag @ 250 mls/hr IVPB Q1HR [facility] Rx#: [id number] Clevidipine Butyrate 25 0.333 58.400 mg In Empty Bag 1 bag @ 1 MG/HR 2 mls/hr IV .Q24H [facility] Rx#:[id number] Diltiazem 125 mg In 44.167 52.833 Sodium Chloride 0.9% 100 ml @ 5 MG/HR 5 mls/hr IV .Q24H [facility] Rx#:[id number] Insulin Regular 100 unit 2.071 9.503 In Sodium Chloride 0.9% 100 ml @ Per Protocol IV .Q0M [facility] Rx#:[id number] Magnesium Sulfate-D5w Pmx 200 1 gm In Dextrose/Water 1 100ml.bag @ 100 mls/hr IVPB Q1H [facility] Rx#: [id number] Nitroglycerin-D5w Pmx 50 25.35 mg In Dextrose/Water 1 250ml.bag @ 5 MCG/MIN 1.5 mls/hr IV .Q24H [facility] Rx#: [id number] Sodium Chloride 0.9% 1, 250 200 000 ml @ 20 mls/hr IV . Q24H [facility] Rx#:[id number] ceFAZolin 2 gm In Sodium 100 Chloride 0.9% 50 ml @ 100 mls/hr IVPB Q8H [facility] Rx#: [id number] propofoL 1,000 mg In 12.902 Empty Bag 1 bag @ Titrate IV .Q0M [facility] Rx#: [id number] Output: Chest Tube Drainage 520 670 120 Left Pleural/Mediastinal 520 670 120 Drainage 0 10 Left Arm 0 10 Urine 633 578 100 Estimated Blood Loss 600 Other: Voiding Method Indwelling Catheter Indwelling Catheter Indwelling Catheter ABP, PAP, CO, CI - Last Documented Arterial Blood Pressure 136/47 Pulmonary Artery Pressure 26/11 Cardiac Output 4.5 Cardiac Index 2.4 - Labs CBC & Chem 7: 05/25/20 04:00 05/25/20 04:00 Labs: Abnormal Lab Results - Last 24 Hours (Table) 05/21/20 05/24/20 05/24/20 Range/Units 08:00 13:29 13:29 WBC (3.8-10.6) k/uL RBC 3.26 L (4.30-5.90) m/uL Hgb 10.0 L D (13.0-17.5) gm/dL Hct 29.6 L (39.0-53.0) % Plt Count 94 L (150-450) k/uL Neutrophils # 8.1 H (1.3-7.7) k/uL Lymphocytes # (1.0-4.8) k/uL PT 13.1 H (9.0-12.0) sec INR 1.3 H (<1.2) APTT 36.1 H (22.0-30.0) sec ABG pH (7.35-7.45) ABG pO2 (83-108) mmHg ABG O2 Saturation (94-97) % Sodium (137-145) mmol/L Chloride (98-107) mmol/L Carbon Dioxide (22-30) mmol/L BUN (9-20) mg/dL Glucose (74-99) mg/dL POC Glucose (mg/dL) (75-99) mg/dL Calcium (8.4-10.2) mg/dL Alkaline Phosphatase (38-126) U/L Total Protein (6.3-8.2) g/dL Albumin (3.5-5.0) g/dL Crossmatch See Detail 05/24/20 05/24/20 05/24/20 Range/Units 13:29 13:50 16:03 WBC (3.8-10.6) k/uL RBC (4.30-5.90) m/uL Hgb (13.0-17.5) gm/dL Hct (39.0-53.0) % Plt Count (150-450) k/uL Neutrophils # (1.3-7.7) k/uL Lymphocytes # (1.0-4.8) k/uL PT (9.0-12.0) sec INR (<1.2) APTT (22.0-30.0) sec ABG pH 7.33 L (7.35-7.45) ABG pO2 369 H (83-108) mmHg ABG O2 Saturation 99.9 H (94-97) % Sodium (137-145) mmol/L Chloride 111 H (98-107) mmol/L Carbon Dioxide 20 L (22-30) mmol/L BUN 27 H (9-20) mg/dL Glucose (74-99) mg/dL POC Glucose (mg/dL) 137 H (75-99) mg/dL Calcium 7.4 L (8.4-10.2) mg/dL Alkaline Phosphatase 32 L (38-126) U/L Total Protein 5.2 L (6.3-8.2) g/dL Albumin 3.4 L (3.5-5.0) g/dL Crossmatch 05/24/20 05/24/20 05/24/20 Range/Units 16:04 17:04 17:59 WBC 12.6 H (3.8-10.6) k/uL RBC 3.20 L (4.30-5.90) m/uL Hgb 9.5 L (13.0-17.5) gm/dL Hct 29.1 L (39.0-53.0) % Plt Count 101 L (150-450) k/uL Neutrophils # 9.6 H (1.3-7.7) k/uL Lymphocytes # (1.0-4.8) k/uL PT (9.0-12.0) sec INR (<1.2) APTT (22.0-30.0) sec ABG pH (7.35-7.45) ABG pO2 (83-108) mmHg ABG O2 Saturation (94-97) % Sodium (137-145) mmol/L Chloride (98-107) mmol/L Carbon Dioxide (22-30) mmol/L BUN (9-20) mg/dL Glucose (74-99) mg/dL POC Glucose (mg/dL) 154 H 149 H (75-99) mg/dL Calcium (8.4-10.2) mg/dL Alkaline Phosphatase (38-126) U/L Total Protein (6.3-8.2) g/dL Albumin (3.5-5.0) g/dL Crossmatch 05/24/20 05/24/20 05/24/20 Range/Units 18:35 18:38 19:01 WBC 12.8 H (3.8-10.6) k/uL RBC 3.36 L (4.30-5.90) m/uL Hgb 10.3 L (13.0-17.5) gm/dL Hct 30.3 L (39.0-53.0) % Plt Count 116 L (150-450) k/uL Neutrophils # 11.2 H (1.3-7.7) k/uL Lymphocytes # 0.8 L (1.0-4.8) k/uL PT (9.0-12.0) sec INR (<1.2) APTT (22.0-30.0) sec ABG pH 7.34 L (7.35-7.45) ABG pO2 66 L (83-108) mmHg ABG O2 Saturation 93.2 L (94-97) % Sodium (137-145) mmol/L Chloride (98-107) mmol/L Carbon Dioxide (22-30) mmol/L BUN (9-20) mg/dL Glucose (74-99) mg/dL POC Glucose (mg/dL) 140 H (75-99) mg/dL Calcium (8.4-10.2) mg/dL Alkaline Phosphatase (38-126) U/L Total Protein (6.3-8.2) g/dL Albumin (3.5-5.0) g/dL Crossmatch 05/24/20 05/24/20 05/24/20 Range/Units 20:03 21:12 22:08 WBC (3.8-10.6) k/uL RBC (4.30-5.90) m/uL Hgb (13.0-17.5) gm/dL Hct (39.0-53.0) % Plt Count (150-450) k/uL Neutrophils # (1.3-7.7) k/uL Lymphocytes # (1.0-4.8) k/uL PT (9.0-12.0) sec INR (<1.2) APTT (22.0-30.0) sec ABG pH (7.35-7.45) ABG pO2 (83-108) mmHg ABG O2 Saturation (94-97) % Sodium (137-145) mmol/L Chloride (98-107) mmol/L Carbon Dioxide (22-30) mmol/L BUN (9-20) mg/dL Glucose (74-99) mg/dL POC Glucose (mg/dL) 121 H 101 H 118 H (75-99) mg/dL Calcium (8.4-10.2) mg/dL Alkaline Phosphatase (38-126) U/L Total Protein (6.3-8.2) g/dL Albumin (3.5-5.0) g/dL Crossmatch 05/24/20 05/25/20 05/25/20 Range/Units 23:09 00:24 01:11 WBC (3.8-10.6) k/uL RBC (4.30-5.90) m/uL Hgb (13.0-17.5) gm/dL Hct (39.0-53.0) % Plt Count (150-450) k/uL Neutrophils # (1.3-7.7) k/uL Lymphocytes # (1.0-4.8) k/uL PT (9.0-12.0) sec INR (<1.2) APTT (22.0-30.0) sec ABG pH (7.35-7.45) ABG pO2 (83-108) mmHg ABG O2 Saturation (94-97) % Sodium (137-145) mmol/L Chloride (98-107) mmol/L Carbon Dioxide (22-30) mmol/L BUN (9-20) mg/dL Glucose (74-99) mg/dL POC Glucose (mg/dL) 134 H 123 H 128 H (75-99) mg/dL Calcium (8.4-10.2) mg/dL Alkaline Phosphatase (38-126) U/L Total Protein (6.3-8.2) g/dL Albumin (3.5-5.0) g/dL Crossmatch 05/25/20 05/25/20 05/25/20 Range/Units 03:14 03:59 04:00 WBC 14.8 H (3.8-10.6) k/uL RBC 3.46 L (4.30-5.90) m/uL Hgb 10.2 L (13.0-17.5) gm/dL Hct 31.2 L (39.0-53.0) % Plt Count 117 L (150-450) k/uL Neutrophils # 13.2 H (1.3-7.7) k/uL Lymphocytes # 0.7 L (1.0-4.8) k/uL PT (9.0-12.0) sec INR (<1.2) APTT (22.0-30.0) sec ABG pH (7.35-7.45) ABG pO2 (83-108) mmHg ABG O2 Saturation (94-97) % Sodium (137-145) mmol/L Chloride (98-107) mmol/L Carbon Dioxide (22-30) mmol/L BUN (9-20) mg/dL Glucose (74-99) mg/dL POC Glucose (mg/dL) 135 H 127 H (75-99) mg/dL Calcium (8.4-10.2) mg/dL Alkaline Phosphatase (38-126) U/L Total Protein (6.3-8.2) g/dL Albumin (3.5-5.0) g/dL Crossmatch 05/25/20 05/25/20 05/25/20 Range/Units 04:00 06:11 07:55 WBC (3.8-10.6) k/uL RBC (4.30-5.90) m/uL Hgb (13.0-17.5) gm/dL Hct (39.0-53.0) % Plt Count (150-450) k/uL Neutrophils # (1.3-7.7) k/uL Lymphocytes # (1.0-4.8) k/uL PT (9.0-12.0) sec INR (<1.2) APTT (22.0-30.0) sec ABG pH (7.35-7.45) ABG pO2 (83-108) mmHg ABG O2 Saturation (94-97) % Sodium 135 L (137-145) mmol/L Chloride 110 H (98-107) mmol/L Carbon Dioxide 19 L (22-30) mmol/L BUN 22 H (9-20) mg/dL Glucose 122 H (74-99) mg/dL POC Glucose (mg/dL) 152 H 136 H (75-99) mg/dL Calcium 8.2 L (8.4-10.2) mg/dL Alkaline Phosphatase 37 L (38-126) U/L Total Protein 5.6 L (6.3-8.2) g/dL Albumin (3.5-5.0) g/dL Crossmatch 05/25/20 Range/Units 09:49 WBC (3.8-10.6) k/uL RBC (4.30-5.90) m/uL Hgb (13.0-17.5) gm/dL Hct (39.0-53.0) % Plt Count (150-450) k/uL Neutrophils # (1.3-7.7) k/uL Lymphocytes # (1.0-4.8) k/uL PT (9.0-12.0) sec INR (<1.2) APTT (22.0-30.0) sec ABG pH (7.35-7.45) ABG pO2 (83-108) mmHg ABG O2 Saturation (94-97) % Sodium (137-145) mmol/L Chloride (98-107) mmol/L Carbon Dioxide (22-30) mmol/L BUN (9-20) mg/dL Glucose (74-99) mg/dL POC Glucose (mg/dL) 124 H (75-99) mg/dL Calcium (8.4-10.2) mg/dL Alkaline Phosphatase (38-126) U/L Total Protein (6.3-8.2) g/dL Albumin (3.5-5.0) g/dL Crossmatch Assessment and Plan Plan: The patient was seen and examined, I agree with the plan documented by Nurse Practitioner Alba Christian
[2020-05-25 09:55] LABS: Glucose,Whole Blood 124 mg/dL (75-99)
[2020-05-25 11:21] LABS: Glucose,Whole Blood 114 mg/dL (75-99)
[2020-05-25] MEDS ORDERED: lisinopriL 10 MG TAB PO SCH (12:00)
[2020-05-25 12:11] LABS: Glucose,Whole Blood 127 mg/dL (75-99)
--- NOTE | 2020-05-25 13:13 | P.PN ---
Subjective Progress Note Date: 05/25/20 Principal diagnosis: Shortness of breath, multivessel coronary artery disease This is a 64-year-old tall white male patient who was hospitalized in March 2020 when he presented to the emergency department with complaints of severe shortness of breath, was diagnosed with non-ST elevated myocardial infarction, and his cardiac workup showed the multivessel coronary artery disease. During the same admission patient experienced acute ischemic stroke involving his right MCA. Transesophageal echocardiogram revealed severely impaired left ventricular systolic function with an EF of 20-25%, and intracardiac thrombus. Repeat transesophageal echocardiogram in April 2020 showed improvement in left ventricular systolic function and resolution of the intracardiac thrombus. Patient was referred to CT surgery for possibility of coronary artery bypass grafting. Today on 05/24/2020 patient underwent off-pump CABG 4 with endovascular vein harvest and the radial harvest and occlusion of the left atrial appendage. Patient is seen in the intensive care unit following his s urgery he is sedated and intubated on mechanical ventilator, with assist-control mode of ventilation with a rate of 12, tidal volumes 500, FiO2 is 50% and PEEP of 5. His postoperative blood gases showed pO2 of 369, pCO2 40, pH of 7.3, is was on FiO2 of 100%, and it has since been dropped to 50%. Hemodynamically stable, maintenance IV drips of 0.9 normal saline at a rate of 50 ML per hour, Cardizem is a 5 mg per hour, nitroglycerin is at 5 mics per kilo per minute, and improving is at 20 mics per kilo per minute. Patient is in sinus mechanism with a bradycardic rate of 51 BPM, PA pressure 35/20, cardiac output is 4.2, cardiac index is 2.2. Mediastinal and left pleural chest tube is why connected together, with a total of 180 cc of sanguinous output in the Pleur-evac which is connected to wall suction, with no evidence of air leak. Postoperative chest x- ray shows left lower lobe infiltrate likely related to atelectasis, ET tube, PA catheter in appropriate positions. On 05/25/2020 patient seen in follow-up in the intensive care unit. He was successfully extubated at 1800 yesterday on postoperative day 0 on 05/24/2020. Today is postoperative day 1, status post four-vessel coronary artery bypass grafting, with the left radial artery harvest, in the left leg endoscopic vein harvest and exclusion of the left atrial appendage. He is doing very well, hemodynamically stable, in sinus mechanism, no bradycardia, no tachycardia, he is on Cleviprex drip at 2 mg per hour, blood pressures 129/44, insulin is at 1- 1/2 units per hour, 3 L of oxygen pulse ox 94-97%. Lung sounds are clear, his incentive spirometry is around 800 mL, his pain is reasonably controlled, his left pleural and mediastinal chest tube throughout around 1300 of thin serosanguineous output in last 24 hours. His urine output is in order of 40-70 ML per hour, his last cardiac output was 4.6 and cardiac index was 2.4, with PA pressure of 24/9, and CVP of 2 as of 05 09 this morning, patient has been hemodynamically stable, and PA catheter has been discontinued this morning. Today's chest x-ray shows small atelectasis in the right base, improving left lower lobe infiltrate. His blood work has been reviewed showing white blood cell count of 14.8, hemoglobin of 10.2, platelet count is 117, sodium is 135, potassium 4.4, chloride is 110, CO2 is 19, BUN is 22, creatinine 0.89 Objective - Vital Signs Vital signs: Vital Signs Temp 97.7 F 05/25/20 12:00 Pulse 80 05/25/20 12:00 Resp 26 H 05/25/20 12:00 BP 127/73 05/25/20 06:00 Pulse Ox 90 L 05/25/20 12:00 Intake & Output 05/24/20 05/25/20 05/25/20 18:59 06:59 18:59 Intake Total 1331.523 7582.420 345.263 Output Total 1753 1258 500 Balance -438.694 -191.580 -154.737 Weight 84.4 kg 84.4 kg Intake: IV 249 629 275 CO/CI 170 130 80 Diltiazem 125 mg In 10 Sodium Chloride 0.9% 100 ml @ 5 MG/HR 5 mls/hr IV .Q24H [facility] Rx#:[id number] Pressure bags 45 99 45 Sodium Chloride 0.9% 1, 400 140 000 ml @ 20 mls/hr IV . Q24H [facility] Rx#:[id number] Intake, IV Titration 1065.306 437.420 70.263 Amount ACETAMINOPHEN IV (For NPO 100 ) 1,000 mg In Empty Bag 1 bag @ 400 mls/hr IVPB Q6HR [facility] Rx#:[id number] Albumin Human 5% 250 ml 500 In Empty Bag 1 bag @ 250 mls/hr IVPB Q1HR PRN Rx#: [id number] Clevidipine Butyrate 25 0.333 58.400 10.133 mg In Empty Bag 1 bag @ 1 MG/HR 2 mls/hr IV .Q24H [facility] Rx#:[id number] Diltiazem 125 mg In 44.167 52.833 Sodium Chloride 0.9% 100 ml @ 5 MG/HR 5 mls/hr IV .Q24H [facility] Rx#:[id number] Insulin Regular 100 unit 2.071 9.503 7.297 In Sodium Chloride 0.9% 100 ml @ Per Protocol IV .Q0M [facility] Rx#:[id number] Magnesium Sulfate-D5w Pmx 200 1 gm In Dextrose/Water 1 100ml.bag @ 100 mls/hr IVPB Q1H [facility] Rx#: [id number] Nitroglycerin-D5w Pmx 50 25.35 mg In Dextrose/Water 1 250ml.bag @ 5 MCG/MIN 1.5 mls/hr IV .Q24H [facility] Rx#: [id number] Sodium Chloride 0.9% 1, 250 200 000 ml @ 20 mls/hr IV . Q24H [facility] Rx#:[id number] ceFAZolin 2 gm In Sodium 100 Chloride 0.9% 50 ml @ 100 mls/hr IVPB Q8H [facility] Rx#: [id number] propofoL 1,000 mg In 12.902 Empty Bag 1 bag @ Titrate IV .Q0M [facility] Rx#: [id number] Output: Chest Tube Drainage 520 670 240 Left Pleural/Mediastinal 520 670 240 Drainage 0 10 Left Arm 0 10 Urine 633 578 260 Estimated Blood Loss 600 Other: Voiding Method Indwelling Catheter Indwelling Catheter Indwelling Catheter ABP, PAP, CO, CI - Last Documented Arterial Blood Pressure 129/44 Pulmonary Artery Pressure 24/9 Cardiac Output 4.6 Cardiac Index 2.4 - Exam GENERAL EXAM: Alert, oriented 3 64-year-old white male, 3 L of oxygen and the pulse ox of 94-97% comfortable in no apparent distress. HEAD: Normocephalic/atraumatic. EYES: Normal reaction of pupils, equal size. Conjunctiva pink, sclera white. NOSE: Clear with pink turbinates. THROAT: No erythema or exudates. NECK: No masses, no JVD, no thyroid enlargement, no adenopathy. CHEST: No chest wall deformity. Symmetrical expansion. Midsternal incision clean dry and intact, 1 mediastinal and one left pleural chest tube was connected together with 1300 mL of thin serosanguineous output in the Pleur- evac with no evidence of air leak LUNGS: Equal air entry with no crackles, wheeze, rhonchi or dullness. CVS: Regular rate and rhythm, normal S1 and S2, no gallops, no murmurs, no rubs ABDOMEN: Soft, nontender. No hepatosplenomegaly, normal bowel sounds, no guarding or rigidity. EXTREMITIES: No clubbing, no edema, no cyanosis, 2+ pulses and upper and lower extremities. MUSCULOSKELETAL: Muscle strength and tone normal. Left radial artery harvest site clean dry and intact, with CASIMIRO drain compressed and drain small amount of single is output, left leg venous graft harvest site wrapped in Regan dressings, and dry and intact SPINE: No scoliosis or deformity SKIN: No rashes CENTRAL NERVOUS SYSTEM: Awake and alert, oriented 3 No focal deficits, tone is normal in all 4 extremities. - Labs CBC & Chem 7: 05/25/20 04:00 05/25/20 04:00 Labs: Abnormal Lab Results - Last 24 Hours (Table) 05/21/20 05/24/20 05/24/20 Range/Units 08:00 13:29 13:29 WBC (3.8-10.6) k/uL RBC 3.26 L (4.30-5.90) m/uL Hgb 10.0 L D (13.0-17.5) gm/dL Hct 29.6 L (39.0-53.0) % Plt Count 94 L (150-450) k/uL Neutrophils # 8.1 H (1.3-7.7) k/uL Lymphocytes # (1.0-4.8) k/uL PT 13.1 H (9.0-12.0) sec INR 1.3 H (<1.2) APTT 36.1 H (22.0-30.0) sec ABG pH (7.35-7.45) ABG pO2 (83-108) mmHg ABG O2 Saturation (94-97) % Sodium (137-145) mmol/L Chloride (98-107) mmol/L Carbon Dioxide (22-30) mmol/L BUN (9-20) mg/dL Glucose (74-99) mg/dL POC Glucose (mg/dL) (75-99) mg/dL Calcium (8.4-10.2) mg/dL Alkaline Phosphatase (38-126) U/L Total Protein (6.3-8.2) g/dL Albumin (3.5-5.0) g/dL Crossmatch See Detail 05/24/20 05/24/20 05/24/20 Range/Units 13:29 13:50 16:03 WBC (3.8-10.6) k/uL RBC (4.30-5.90) m/uL Hgb (13.0-17.5) gm/dL Hct (39.0-53.0) % Plt Count (150-450) k/uL Neutrophils # (1.3-7.7) k/uL Lymphocytes # (1.0-4.8) k/uL PT (9.0-12.0) sec INR (<1.2) APTT (22.0-30.0) sec ABG pH 7.33 L (7.35-7.45) ABG pO2 369 H (83-108) mmHg ABG O2 Saturation 99.9 H (94-97) % Sodium (137-145) mmol/L Chloride 111 H (98-107) mmol/L Carbon Dioxide 20 L (22-30) mmol/L BUN 27 H (9-20) mg/dL Glucose (74-99) mg/dL POC Glucose (mg/dL) 137 H (75-99) mg/dL Calcium 7.4 L (8.4-10.2) mg/dL Alkaline Phosphatase 32 L (38-126) U/L Total Protein 5.2 L (6.3-8.2) g/dL Albumin 3.4 L (3.5-5.0) g/dL Crossmatch 05/24/20 05/24/20 05/24/20 Range/Units 16:04 17:04 17:59 WBC 12.6 H (3.8-10.6) k/uL RBC 3.20 L (4.30-5.90) m/uL Hgb 9.5 L (13.0-17.5) gm/dL Hct 29.1 L (39.0-53.0) % Plt Count 101 L (150-450) k/uL Neutrophils # 9.6 H (1.3-7.7) k/uL Lymphocytes # (1.0-4.8) k/uL PT (9.0-12.0) sec INR (<1.2) APTT (22.0-30.0) sec ABG pH (7.35-7.45) ABG pO2 (83-108) mmHg ABG O2 Saturation (94-97) % Sodium (137-145) mmol/L Chloride (98-107) mmol/L Carbon Dioxide (22-30) mmol/L BUN (9-20) mg/dL Glucose (74-99) mg/dL POC Glucose (mg/dL) 154 H 149 H (75-99) mg/dL Calcium (8.4-10.2) mg/dL Alkaline Phosphatase (38-126) U/L Total Protein (6.3-8.2) g/dL Albumin (3.5-5.0) g/dL Crossmatch 05/24/20 05/24/20 05/24/20 Range/Units 18:35 18:38 19:01 WBC 12.8 H (3.8-10.6) k/uL RBC 3.36 L (4.30-5.90) m/uL Hgb 10.3 L (13.0-17.5) gm/dL Hct 30.3 L (39.0-53.0) % Plt Count 116 L (150-450) k/uL Neutrophils # 11.2 H (1.3-7.7) k/uL Lymphocytes # 0.8 L (1.0-4.8) k/uL PT (9.0-12.0) sec INR (<1.2) APTT (22.0-30.0) sec ABG pH 7.34 L (7.35-7.45) ABG pO2 66 L (83-108) mmHg ABG O2 Saturation 93.2 L (94-97) % Sodium (137-145) mmol/L Chloride (98-107) mmol/L Carbon Dioxide (22-30) mmol/L BUN (9-20) mg/dL Glucose (74-99) mg/dL POC Glucose (mg/dL) 140 H (75-99) mg/dL Calcium (8.4-10.2) mg/dL Alkaline Phosphatase (38-126) U/L Total Protein (6.3-8.2) g/dL Albumin (3.5-5.0) g/dL Crossmatch 05/24/20 05/24/20 05/24/20 Range/Units 20:03 21:12 22:08 WBC (3.8-10.6) k/uL RBC (4.30-5.90) m/uL Hgb (13.0-17.5) gm/dL Hct (39.0-53.0) % Plt Count (150-450) k/uL Neutrophils # (1.3-7.7) k/uL Lymphocytes # (1.0-4.8) k/uL PT (9.0-12.0) sec INR (<1.2) APTT (22.0-30.0) sec ABG pH (7.35-7.45) ABG pO2 (83-108) mmHg ABG O2 Saturation (94-97) % Sodium (137-145) mmol/L Chloride (98-107) mmol/L Carbon Dioxide (22-30) mmol/L BUN (9-20) mg/dL Glucose (74-99) mg/dL POC Glucose (mg/dL) 121 H 101 H 118 H (75-99) mg/dL Calcium (8.4-10.2) mg/dL Alkaline Phosphatase (38-126) U/L Total Protein (6.3-8.2) g/dL Albumin (3.5-5.0) g/dL Crossmatch 05/24/20 05/25/20 05/25/20 Range/Units 23:09 00:24 01:11 WBC (3.8-10.6) k/uL RBC (4.30-5.90) m/uL Hgb (13.0-17.5) gm/dL Hct (39.0-53.0) % Plt Count (150-450) k/uL Neutrophils # (1.3-7.7) k/uL Lymphocytes # (1.0-4.8) k/uL PT (9.0-12.0) sec INR (<1.2) APTT (22.0-30.0) sec ABG pH (7.35-7.45) ABG pO2 (83-108) mmHg ABG O2 Saturation (94-97) % Sodium (137-145) mmol/L Chloride (98-107) mmol/L Carbon Dioxide (22-30) mmol/L BUN (9-20) mg/dL Glucose (74-99) mg/dL POC Glucose (mg/dL) 134 H 123 H 128 H (75-99) mg/dL Calcium (8.4-10.2) mg/dL Alkaline Phosphatase (38-126) U/L Total Protein (6.3-8.2) g/dL Albumin (3.5-5.0) g/dL Crossmatch 05/25/20 05/25/20 05/25/20 Range/Units 03:14 03:59 04:00 WBC 14.8 H (3.8-10.6) k/uL RBC 3.46 L (4.30-5.90) m/uL Hgb 10.2 L (13.0-17.5) gm/dL Hct 31.2 L (39.0-53.0) % Plt Count 117 L (150-450) k/uL Neutrophils # 13.2 H (1.3-7.7) k/uL Lymphocytes # 0.7 L (1.0-4.8) k/uL PT (9.0-12.0) sec INR (<1.2) APTT (22.0-30.0) sec ABG pH (7.35-7.45) ABG pO2 (83-108) mmHg ABG O2 Saturation (94-97) % Sodium (137-145) mmol/L Chloride (98-107) mmol/L Carbon Dioxide (22-30) mmol/L BUN (9-20) mg/dL Glucose (74-99) mg/dL POC Glucose (mg/dL) 135 H 127 H (75-99) mg/dL Calcium (8.4-10.2) mg/dL Alkaline Phosphatase (38-126) U/L Total Protein (6.3-8.2) g/dL Albumin (3.5-5.0) g/dL Crossmatch 05/25/20 05/25/20 05/25/20 Range/Units 04:00 06:11 07:55 WBC (3.8-10.6) k/uL RBC (4.30-5.90) m/uL Hgb (13.0-17.5) gm/dL Hct (39.0-53.0) % Plt Count (150-450) k/uL Neutrophils # (1.3-7.7) k/uL Lymphocytes # (1.0-4.8) k/uL PT (9.0-12.0) sec INR (<1.2) APTT (22.0-30.0) sec ABG pH (7.35-7.45) ABG pO2 (83-108) mmHg ABG O2 Saturation (94-97) % Sodium 135 L (137-145) mmol/L Chloride 110 H (98-107) mmol/L Carbon Dioxide 19 L (22-30) mmol/L BUN 22 H (9-20) mg/dL Glucose 122 H (74-99) mg/dL POC Glucose (mg/dL) 152 H 136 H (75-99) mg/dL Calcium 8.2 L (8.4-10.2) mg/dL Alkaline Phosphatase 37 L (38-126) U/L Total Protein 5.6 L (6.3-8.2) g/dL Albumin (3.5-5.0) g/dL Crossmatch 05/25/20 05/25/20 05/25/20 Range/Units 09:49 11:19 12:09 WBC (3.8-10.6) k/uL RBC (4.30-5.90) m/uL Hgb (13.0-17.5) gm/dL Hct (39.0-53.0) % Plt Count (150-450) k/uL Neutrophils # (1.3-7.7) k/uL Lymphocytes # (1.0-4.8) k/uL PT (9.0-12.0) sec INR (<1.2) APTT (22.0-30.0) sec ABG pH (7.35-7.45) ABG pO2 (83-108) mmHg ABG O2 Saturation (94-97) % Sodium (137-145) mmol/L Chloride (98-107) mmol/L Carbon Dioxide (22-30) mmol/L BUN (9-20) mg/dL Glucose (74-99) mg/dL POC Glucose (mg/dL) 124 H 114 H 127 H (75-99) mg/dL Calcium (8.4-10.2) mg/dL Alkaline Phosphatase (38-126) U/L Total Protein (6.3-8.2) g/dL Albumin (3.5-5.0) g/dL Crossmatch Assessment and Plan Plan: Assessment: #1. Symptomatic multivessel coronary artery disease, status post four-vessel coronary artery bypass grafting with BERNARDO to the LAD, radial arterial graft to intermediate coronary artery, SVG to the diagonal, SVG to the RCA, with left radial artery harvest, left leg endoscopic vein harvest, and exclusion of the left atrial appendage, postoperative day 1 #2. Recent history of non-ST elevated myocardial infarction in March 2020 #3. Recent history of ischemic stroke involving the right MCA in March 2020 #4. Severe ischemic cardiomyopathy with EF of 20-25%, with the recent documented improvement up to 40% on most recent transesophageal echocardiogram #5. Intracardiac thrombus in the left ventricle seen on the transesophageal echocardiogram from March 2020, resolved #6. Paroxysmal atrial fibrillation #7. Hypertension #8. Hyperlipidemia #9. Chronic ongoing tobacco dependence #10. History of peripheral arterial disease status post aorto bifemoral bypass in 2004 #11. Routine postoperative ventilator management, patient was successfully weaned and extubated on postoperative day 0 on 05/24/2020 Plan: Continue encouraging deep breathing and coughing, incentive spirometry use, today's chest x-ray has been reviewed, continue breathing treatments 4 times a day and when necessary. Anticoagulation and GI prophylaxis per CT surgery. No acute events overnight, hemodynamically remains stable. Continue pain control, increase activity as tolerated, will continue monitoring in the intensive care unit. I performed a history & physical examination of the patient and discussed their management with my nurse practitioner, Deedee Turcios. I reviewed the nurse practitioner's note and agree with the documented findings and plan of care. Lung sounds are positive for clear breath sounds. The findings and the impression was discussed with the patient. I attest to the documentation by the nurse practitioner. Time with Patient: Less than 30
--- NOTE | 2020-05-25 13:47 | P.CRDCN ---
History of Present Illness History of present illness: HISTORY OF PRESENTING ILLNESS This is a pleasant 64-year-old occasion male past medical history significant for abdominal aortic aneurysm status post replacement, coronary artery disease status post bypass grafting, systolic heart failure, history of myocardial infarction, ischemic cardiomyopathy, left ventricular thrombus, valvular heart disease, ischemic stroke, paroxysmal atrial fibrillation, chronic nicotine dependence, hypertension and dyslipidemia. He follows in the office with Dr. Raza. He underwent coronary artery bypass grafting with Dr. Gleason yesterday. He is postoperative day #1 with BERNARDO to LAD, reverse SVG from the aorta to the RCA, radial artery to the intermediate coronary artery and reverse SVG from the aorta to the first diagonal branch. He is seen and examined sitting up in the chair in the intensive care unit in no acute distress. He is maintaining oxygen saturation on nasal cannula. He denies shortness of breath however is having some pain around his chest tube insertion sites. He denies dizziness or palpitations. He states he did feel mildly dizzy this morning when he stood up from the bed to the chair. DIAGNOSTICS EKG reveals sinus mechanism with T-wave inversion laterally and left axis deviation. Chest xray minimal atelectasis at the right base and improving left lower lobe infiltrate. Laboratory reviewed, WBC 14.8, hemoglobin 10.2, platelets 117, sodium 135, potassium 4.4, creatinine 0.89 and magnesium 2.1. Current cardiac medications include lithium 5 mg daily, aspirin 325 mg daily, atorvastatin 40 mg daily, carvedilol 3.125 mg twice a day, Plavix 75 mg daily and lisinopril 10 mg at noontime. REVIEW OF SYSTEMS At the time of my exam: CONSTITUTIONAL: Denies fever or chills. CARDIOVASCULAR: Denies chest pain, shortness of breath, orthopnea, PND or palpitations. RESPIRATORY: Denies cough. GASTROINTESTINAL: Denies abdominal pain, diarrhea, constipation, nausea or vomiting. MUSCULOSKELETAL: Complains of chest wall pain. NEUROLOGIC: Denies numbness, tingling or weakness. ENDOCRINE: Denies fatigue, weight change, polydipsia or polyurina. GENITOURINARY: Denies burning, hematuria or urgency with micturation. HEMATOLOGIC: Denies history of anemia or bleeding. PHYSICAL EXAMINATION Blood pressure 129/44 heart rate 80 afebrile and maintaining oxygen saturation on nasal cannula. CONSTITUTIONAL: No apparent distress. HEENT: Head is normocephalic. Pupils are equal, round. Sclerae anicteric. Mucous membranes of the mouth are moist. No JVD. No carotid bruit. Right IJ in place. CHEST EXAMINATION: Lungs are clear to auscultation. No chest wall tenderness is noted on palpation or with deep breathing. Medial/left pleural chest tube in place. HEART EXAMINATION: Regular rate and rhythm. S1, S2 heard. Pleural friction rub noted. No murmurs or gallops. Heart hugger in place. ABDOMEN: Soft, nontender. Positive bowel sounds. EXTREMITIES: 2+ peripheral pulses, no lower extremity edema and no calf tenderness. NEUROLOGIC EXAMINATION: Patient is awake, alert and oriented x3. ASSESSMENT Multi-vessel coronary artery disease s/p bypass grafting History of non-STEMI 04/2020 Paroxysmal atrial fibrillation Chronic systolic heart failure Ischemic cardiomyopathy History of CVA Hypertension Dyslipidemia Chronic nicotine dependence PLAN Continue current medical regimen per CT surgery. Close telemetry monitoring. Accurate intake and output documentation. Encourage incentive spirometer use. We will continue to follow and make recommendations accordingly. Thank you kindly for this consultation. Nurse Practitioner note has been reviewed, I agree with a documented findings and plan of care. Patient was seen and examined. Past Medical History Past Medical History: Coronary Artery Disease (CAD), Heart Failure, CVA/TIA, Myocardial Infarction (OK) Additional Past Medical History / Comment(s): hospitalized 03/29/20 with stroke with left hand weakness, CHF, episode of a -fib , Left ventricular thrombus., previous cva's found on testing., Hx of AAA repair 2004 and due to stents he is unable to have MRI greater than 3.5*. , tinnitus , hx diverticulitis. Last Myocardial Infarction Date:: 03/29/20 History of Any Multi-Drug Resistant Organisms: None Reported Past Surgical History: Heart Catheterization, Orthopedic Surgery, Tonsillectomy Additional Past Surgical History / Comment(s): bypass sx in left leg, AAA repair 2004, jason carpal tunnel, rt hand X2, KASSIE. Past Anesthesia/Blood Transfusion Reactions: No Reported Reaction Additional Past Anesthesia/Blood Transfusion Reaction / Comment(s): . Past Psychological History: No Psychological Hx Reported Smoking Status: Former smoker Past Alcohol Use History: None Reported Additional Past Alcohol Use History / Comment(s): Quit Smoking 04/10/20, smoked approx 1/2ppd, started smoking 1976. Past Drug Use History: None Reported - Past Family History Mother Family Medical History: COPD Father Additional Family Medical History / Comment(s): from Brain aneurysm family Family Medical History: No Reported History Medications and Allergies Home Medications Medication Instructions Recorded Confirmed Type Apixaban [Eliquis] 5 mg PO BID #30 tab 04/01/20 05/17/20 Rx Aspirin 81 mg PO DAILY #30 chew 04/01/20 05/17/20 Rx Clopidogrel [Plavix] 75 mg PO DAILY #30 tab 04/01/20 05/17/20 Rx lisinopriL [Zestril] 20 mg PO QAM 04/23/20 05/22/20 History Atorvastatin [Lipitor] 40 mg PO QAM 05/17/20 05/17/20 History carvediloL [Coreg] 6.25 mg PO BID 05/17/20 05/17/20 History Allergies Allergy/AdvReac Type Severity Reaction Status Date / Time Tetracyclines Allergy "made me Verified 05/24/20 05:48 sleep for a week" Physical Exam Vitals: Vital Signs Temp Pulse Resp BP Pulse Ox 05/25/20 12:00 97.7 F 80 26 H 90 L 05/25/20 11:48 75 05/25/20 11:40 74 05/25/20 11:30 72 25 H 91 L 05/25/20 11:01 78 29 H 91 L 05/25/20 10:30 80 21 94 L 05/25/20 10:00 72 16 94 L 05/25/20 09:30 75 21 94 L 05/25/20 09:00 73 25 H 95 05/25/20 08:46 72 05/25/20 08:31 73 05/25/20 08:30 74 13 94 L 05/25/20 08:00 72 23 97 05/25/20 07:00 71 27 H 99 05/25/20 06:30 69 22 97 05/25/20 06:00 74 34 H 127/73 84 L 05/25/20 05:30 77 30 H 127/73 91 L 05/25/20 05:00 69 21 125/66 95 05/25/20 04:30 68 20 95 05/25/20 04:00 99.0 F 71 16 94 L 05/25/20 03:30 71 19 96 05/25/20 03:00 68 16 120/63 96 05/25/20 02:30 70 16 95 05/25/20 02:00 70 18 123/65 95 05/25/20 01:30 71 20 96 05/25/20 01:00 69 14 121/64 97 05/25/20 00:30 68 18 121/64 97 05/25/20 00:00 98.2 F 67 17 113/66 96 05/24/20 23:33 70 26 H 113/66 92 L 05/24/20 23:30 66 24 113/66 97 05/24/20 23:00 68 20 122/69 95 05/24/20 22:30 69 17 122/69 96 05/24/20 22:00 69 20 96 05/24/20 21:30 68 16 97 05/24/20 21:00 70 19 95 05/24/20 20:53 68 05/24/20 20:43 68 05/24/20 20:30 69 12 111/60 97 05/24/20 20:00 66 14 97 05/24/20 19:30 69 17 119/65 95 05/24/20 19:05 94 L 05/24/20 19:00 75 27 H 134/68 86 L 05/24/20 18:45 67 18 134/68 92 L 05/24/20 18:30 68 21 134/68 93 L 05/24/20 18:15 78 22 134/68 91 L 05/24/20 18:00 97.5 F L 68 22 96 05/24/20 17:45 63 11 L 97 05/24/20 17:30 61 20 97 05/24/20 17:15 64 13 100 05/24/20 17:00 57 L 14 100 05/24/20 16:45 54 L 22 99 05/24/20 16:30 55 L 20 100 05/24/20 16:15 49 L 22 115/76 100 05/24/20 16:00 95.7 F L 54 L 15 100 05/24/20 15:47 52 L 05/24/20 15:45 47 L 12 100 05/24/20 15:37 47 L 05/24/20 15:30 48 L 12 99 05/24/20 15:15 49 L 14 110/62 99 05/24/20 15:00 93.9 F L 52 L 14 99 10/15/20 14:45 52 L 12 100 05/24/20 14:30 52 L 14 100 05/24/20 14:15 52 L 17 128/67 100 05/24/20 14:00 52 L 18 100 05/24/20 13:45 52 L 13 110/64 100 Intake and Output 05/24/20 05/25/20 05/25/20 22:59 06:59 14:59 Intake Total 1137.210 600.516 345.263 Output Total 920 833 500 Balance 217.210 -232.484 -154.737 Intake: IV 252 533 275 CO/CI 180 70 80 Diltiazem 125 mg In 10 Sodium Chloride 0.9% 100 ml @ 5 MG/HR 5 mls/hr IV .Q24H [facility] Rx#:[id number] Pressure bags 72 63 45 Sodium Chloride 0.9% 1, 400 140 000 ml @ 20 mls/hr IV . Q24H [facility] Rx#:[id number] Intake, IV Titration 885.210 67.516 70.263 Amount ACETAMINOPHEN IV (For NPO 100 ) 1,000 mg In Empty Bag 1 bag @ 400 mls/hr IVPB Q6HR [facility] Rx#:[id number] Clevidipine Butyrate 25 20.733 38.000 10.133 mg In Empty Bag 1 bag @ 1 MG/HR 2 mls/hr IV .Q24H [facility] Rx#:[id number] Diltiazem 125 mg In 44.167 52.833 Sodium Chloride 0.9% 100 ml @ 5 MG/HR 5 mls/hr IV .Q24H [facility] Rx#:[id number] Insulin Regular 100 unit 7.408 4.166 7.297 In Sodium Chloride 0.9% 100 ml @ Per Protocol IV .Q0M [facility] Rx#:[id number] Magnesium Sulfate-D5w Pmx 200 1 gm In Dextrose/Water 1 100ml.bag @ 100 mls/hr IVPB Q1H [facility] Rx#: [id number] Nitroglycerin-D5w Pmx 50 25.35 mg In Dextrose/Water 1 250ml.bag @ 5 MCG/MIN 1.5 mls/hr IV .Q24H [facility] Rx#: [id number] Sodium Chloride 0.9% 1, 400 000 ml @ 20 mls/hr IV . Q24H [facility] Rx#:[id number] ceFAZolin 2 gm In Sodium 100 Chloride 0.9% 50 ml @ 100 mls/hr IVPB Q8H [facility] Rx#: [id number] propofoL 1,000 mg In 12.902 Empty Bag 1 bag @ Titrate IV .Q0M [facility] Rx#: [id number] Output: Chest Tube Drainage 600 420 240 Left Pleural/Mediastinal 600 420 240 Drainage 10 Left Arm 10 Urine 310 413 260 Other: Voiding Method Indwelling Catheter Indwelling Catheter Indwelling Catheter Weight 84.4 kg 84.4 kg ABP, PAP, CO, CI - Last 8 Hours Arterial Blood Pressure 129/44 Arterial Blood Pressure 138/45 Arterial Blood Pressure 97/15 Arterial Blood Pressure 93/43 Arterial Blood Pressure 139/48 Arterial Blood Pressure 129/43 Arterial Blood Pressure 136/47 Arterial Blood Pressure 133/48 Arterial Blood Pressure 130/47 Arterial Blood Pressure 138/50 Arterial Blood Pressure 133/48 Arterial Blood Pressure 123/55 Pulmonary Artery Pressure 24/9 Pulmonary Artery Pressure 26/11 Pulmonary Artery Pressure 29/11 Pulmonary Artery Pressure 24/10 Pulmonary Artery Pressure 26/11 Pulmonary Artery Pressure 18/10 Pulmonary Artery Pressure 24/14 Cardiac Output 4.6 Cardiac Output 4.5 Cardiac Output 4.6 Cardiac Output 4.5 Cardiac Output 4.5 Cardiac Output 3.7 Cardiac Index 2.4 Cardiac Index 2.4 Cardiac Index 2.4 Cardiac Index 2.4 Cardiac Index 2.4 Cardiac Index 2 Results 05/25/20 04:00 05/25/20 04:00 Cardiac Enzymes 05/24/20 05/25/20 Range/Units 13:29 04:00 AST 17 23 (17-59) U/L Coagulation 05/24/20 Range/Units 13:29 PT 13.1 H (9.0-12.0) sec APTT 36.1 H (22.0-30.0) sec CBC 05/24/20 05/24/20 05/24/20 Range/Units 13:29 16:04 18:35 WBC 10.6 12.6 H 12.8 H (3.8-10.6) k/uL RBC 3.26 L 3.20 L 3.36 L (4.30-5.90) m/uL Hgb 10.0 L D 9.5 L 10.3 L (13.0-17.5) gm/dL Hct 29.6 L 29.1 L 30.3 L (39.0-53.0) % Plt Count 94 L 101 L 116 L (150-450) k/uL 05/25/20 Range/Units 04:00 WBC 14.8 H (3.8-10.6) k/uL RBC 3.46 L (4.30-5.90) m/uL Hgb 10.2 L (13.0-17.5) gm/dL Hct 31.2 L (39.0-53.0) % Plt Count 117 L (150-450) k/uL Comprehensive Metabolic Panel 05/24/20 05/25/20 Range/Units 13:29 04:00 Sodium 138 135 L (137-145) mmol/L Potassium 4.0 4.4 (3.5-5.1) mmol/L Chloride 111 H 110 H (98-107) mmol/L Carbon Dioxide 20 L 19 L (22-30) mmol/L BUN 27 H 22 H (9-20) mg/dL Creatinine 0.86 0.89 (0.66-1.25) mg/dL Glucose 84 122 H (74-99) mg/dL Calcium 7.4 L 8.2 L (8.4-10.2) mg/dL AST 17 23 (17-59) U/L ALT 9 10 (4-49) U/L Alkaline Phosphatase 32 L 37 L (38-126) U/L Total Protein 5.2 L 5.6 L (6.3-8.2) g/dL Albumin 3.4 L 3.6 (3.5-5.0) g/dL Current Medications Generic Name Dose Route Start Last Admin Trade Name Freq PRN Reason Stop Dose Admin Hydrocodone Bitart/Acetaminophen 2 each 05/25/20 00:35 05/25/20 09:29 Hydrocodone/Apap 5-325mg 1 Each Tab PO 2 each Q4HR PRN Administration Severe Pain Hydrocodone Bitart/Acetaminophen 1 each 05/25/20 00:35 05/25/20 05:29 Hydrocodone/Apap 5-325mg 1 Each Tab PO 1 each Q4HR PRN Administration Moderate Pain Albuterol/Ipratropium 3 ml 05/24/20 12:52 Ipratropium-Albuterol 3 Ml Neb INHALATION RT-Q2H PRN Shortness Of Breath Or Wheezing Albuterol/Ipratropium 3 ml 05/24/20 18:36 05/25/20 11:40 Ipratropium-Albuterol 3 Ml Neb INHALATION 3 ml RT-QID [facility] Administration Amlodipine Besylate 5 mg 05/25/20 09:00 05/25/20 08:37 Amlodipine 5 Mg Tab PO 5 mg DAILY [facility] Administration Aspirin 325 mg 05/25/20 09:00 05/25/20 08:37 Aspirin 325 Mg Tab PO 325 mg DAILY [facility] Administration Atorvastatin Calcium 40 mg 05/25/20 09:00 05/25/20 08:37 Atorvastatin 40 Mg Tab PO 40 mg DAILY [facility] Administration Benzocaine/Menthol 1 each 05/24/20 12:52 Benzocaine/Menthol Lozeng 1 Each Lozenge MUCOUS MEM Q2H PRN Sore Throat Bisacodyl 10 mg 05/25/20 09:00 Bisacodyl 10 Mg Supp RECTAL DAILY PRN Constipation Carvedilol 3.125 mg 05/25/20 07:30 05/25/20 06:49 Carvedilol 3.125 Mg Tab PO 3.125 mg BID-W/MEALS [facility] Administration Clopidogrel Bisulfate 75 mg 05/25/20 09:00 05/25/20 08:37 Clopidogrel 75 Mg Tab PO 75 mg DAILY [facility] Administration Heparin Sodium (Porcine) 5,000 unit 05/24/20 20:35 05/25/20 08:36 Heparin Sodium,Porcine 5,000 Unit/Ml 1 Ml Vial SQ 5,000 unit Q8HR [facility] Administration Clevidipine 25 mg/ IV Solution 50 mls @ 2 mls/hr 05/24/20 13:15 05/25/20 09:21 IV 1.5 mg/hr .Q24H [facility] 3 mls/hr Titration Protocol 1 MG/HR Amiodarone HCl 150 mg/ 103 mls @ 618 mls/hr 05/24/20 12:52 Dextrose/Water IV .Q10M PRN A.FIB/FLUTTER Protocol Amiodarone HCl 360 mg/ 200 mls @ 33.333 mls/hr 05/24/20 12:52 Dextrose/Water IV .Q6H PRN A.FIB/FLUTTER Protocol 1 MG/MIN Amiodarone HCl 300 mg/ 250 mls @ 25 mls/hr 05/24/20 12:52 Dextrose/Water IV .Q10H PRN A.FIB/FLUTTER Protocol 0.5 MG/MIN Albumin Human 250 ml/ IV 250 mls @ 250 mls/hr 05/24/20 12:52 05/25/20 06:21 Solution IVPB 05/26/20 12:53 250 mls/hr Q1HR PRN Administration For Volume Insulin Human Regular 100 unit 101 mls @ 0 mls/hr 05/24/20 13:30 05/25/20 12:10 / Sodium Chloride IV 1 units/hr .Q0M [facility] 1.01 mls/hr Titration Protocol Per Protocol Sodium Chloride 1,000 mls @ 20 mls/hr 05/24/20 12:52 05/25/20 08:37 Saline 0.9% IV 20 mls/hr .Q24H [facility] Administration Diltiazem HCl 125 mg/ Sodium 125 mls @ 5 mls/hr 05/24/20 13:15 05/25/20 09:29 Chloride IV 0 mg/hr .Q24H [facility] 0 mls/hr Infusion 5 MG/HR Lisinopril 10 mg 05/25/20 12:00 05/25/20 12:06 Lisinopril 10 Mg Tab PO 10 mg DAILY@1200 [facility] Administration Magnesium Hydroxide 2,400 mg 05/25/20 09:00 Magnesium Hydroxide 2,400 Mg/10 Ml Cup PO BID PRN Constipation Metoclopramide HCl 10 mg 05/24/20 12:52 Metoclopramide 5 Mg/Ml 2 Ml Vial IVP Q4H PRN Nausea And Vomiting Miscellaneous Information 1 each 05/24/20 12:52 Potassium Replacement Protocol 1 Each Misc MISCELLANE DAILY PRN Per Protocol Protocol Miscellaneous Information 1 each 05/24/20 12:52 Magnesium Replacement Protocol 1 Each Misc MISCELLANE DAILY PRN Per Protocol Protocol Miscellaneous Information 1 each 05/24/20 12:52 Phosphorus Replacement Protoco 1 Each Misc MISCELLANE DAILY PRN Per Protocol Protocol Ondansetron HCl 4 mg 05/24/20 12:52 Ondansetron 4 Mg/2 Ml Vial IVP Q6HR PRN Nausea And Vomiting Pantoprazole Sodium 40 mg 05/26/20 07:30 Pantoprazole 40 Mg Tablet PO AC-[id number] [facility] Senna/Docusate Sodium 2 each 05/25/20 21:00 Sennosides-Docusate Sodium 1 Each Tab PO HS [facility] Sodium Chloride 10 ml 05/24/20 21:00 05/25/20 08:31 Sodium Chloride 0.9% Flush 10 Ml Syringe IV Not Given BID [facility] Intake and Output 05/24/20 05/25/20 05/25/20 22:59 06:59 14:59 Intake Total 1137.210 600.516 345.263 Output Total 920 833 500 Balance 217.210 -232.484 -154.737 Intake: IV 252 533 275 CO/CI 180 70 80 Diltiazem 125 mg In 10 Sodium Chloride 0.9% 100 ml @ 5 MG/HR 5 mls/hr IV .Q24H [facility] Rx#:[id number] Pressure bags 72 63 45 Sodium Chloride 0.9% 1, 400 140 000 ml @ 20 mls/hr IV . Q24H [facility] Rx#:[id number] Intake, IV Titration 885.210 67.516 70.263 Amount ACETAMINOPHEN IV (For NPO 100 ) 1,000 mg In Empty Bag 1 bag @ 400 mls/hr IVPB Q6HR [facility] Rx#:[id number] Clevidipine Butyrate 25 20.733 38.000 10.133 mg In Empty Bag 1 bag @ 1 MG/HR 2 mls/hr IV .Q24H [facility] Rx#:[id number] Diltiazem 125 mg In 44.167 52.833 Sodium Chloride 0.9% 100 ml @ 5 MG/HR 5 mls/hr IV .Q24H [facility] Rx#:[id number] Insulin Regular 100 unit 7.408 4.166 7.297 In Sodium Chloride 0.9% 100 ml @ Per Protocol IV .Q0M [facility] Rx#:[id number] Magnesium Sulfate-D5w Pmx 200 1 gm In Dextrose/Water 1 100ml.bag @ 100 mls/hr IVPB Q1H [facility] Rx#: [id number] Nitroglycerin-D5w Pmx 50 25.35 mg In Dextrose/Water 1 250ml.bag @ 5 MCG/MIN 1.5 mls/hr IV .Q24H [facility] Rx#: [id number] Sodium Chloride 0.9% 1, 400 000 ml @ 20 mls/hr IV . Q24H [facility] Rx#:[id number] ceFAZolin 2 gm In Sodium 100 Chloride 0.9% 50 ml @ 100 mls/hr IVPB Q8H [facility] Rx#: [id number] propofoL 1,000 mg In 12.902 Empty Bag 1 bag @ Titrate IV .Q0M [facility] Rx#: [id number] Output: Chest Tube Drainage 600 420 240 Left Pleural/Mediastinal 600 420 240 Drainage 10 Left Arm 10 Urine 310 413 260 Other: Voiding Method Indwelling Catheter Indwelling Catheter Indwelling Catheter Weight 84.4 kg 84.4 kg Patient Weight 05/26/20 06:59 Weight 84.4 kg 05/25/20 04:00 05/25/20 04:00
[2020-05-25 14:06] LABS: Glucose,Whole Blood 123 mg/dL (75-99)
[2020-05-25 16:00] LABS: Glucose,Whole Blood 137 mg/dL (75-99)
[2020-05-25] MEDS ORDERED: ACETAMINOPHEN TAB 500 MG TAB PO PRN (17:24)
[2020-05-25] MEDS: carvediloL 6.25 MG TAB PO SCH (17:28)
[2020-05-25 17:41] LABS: Glucose,Whole Blood 160 mg/dL (75-99)
--- NOTE | 2020-05-25 18:37 | P.CONS ---
History of Present Illness - Reason for Consult Consult date: 05/25/20 Medical management Requesting physician: Oliver Gleason - Chief Complaint CABG - History of Present Illness Consultation: This is a pleasant 64-year-old patient whose PCP is Dr. Rosalino Mcallister. Chronic stable medical conditions include coronary artery disease, left arm weakness from prior stroke, CHF, [that is no left ventricular thrombus on no prior KASSIE], diverticulosis. Along with occlusion of left atrial appendage. Successfully extubated. Today sitting up in a chair. 8 some breakfast. Some shallow breathing. No cough no shortness of breath. Review of systems: GEN.: Tired EYES: None HEENT: None NECK: None RESPIRATORY: Mild shortness of breath CARDIOVASCULAR: None GASTROINTESTINAL: None GENITOURINARY: None MUSCULOSKELETAL: None LYMPHATICS: None HEMATOLOGICAL: None PSYCHIATRY: None NEUROLOGICAL: Some left-sided weakness Past medical history to include: Coronary artery disease, CHF, stroke is about 70 weakness, atrial fibrillation, left ventricular thrombus, diverticulitis, tinnitus Social history: Patient smoked for 43 years about half a pack a day stopped a month ago. No alcohol. Lives with Yuriy. Physical examination: VITAL SIGNS: 99, 71, 16, 125/66, 99% on 3 L GENERAL: BMI 30, sitting up in a chair, awake tired. EYES: [Pupils equal. Conjunctiva pale l. HEENT: External appearance of nose and ears normal, oral cavity grossly normal. NECK: JVD unable to assess; masses not palpable. HEART: First and second heart sounds are normal; mild edema. LUNGS: Respiratory rate increased decreased breath sounds. ABDOMEN: Soft, nontender, liver spleen not palpable, no masses palpable. PSYCH: Alert and oriented x3; mood and affect normal. NEUROLOGICAL: Cranial nerves grossly intact; no facial asymmetry, power and sensation grossly intact. LYMPHATICS: No lymph nodes palpable in the axilla and neck INVESTIGATIONS, reviewed in the clinical context: White count 14.8 hemoglobin 10.2 platelets 117 potassium 4.4 creatinine 0.89 Accu-Cheks 152, 136 Preoperative labs: White count 10.1 hemoglobin 14.5 platelets 163 COVID 19 P/Cr-not detected Chest x-ray showing-atelectasis chest tubes Assessment: -CABG, 4 vessels -Coronary artery disease -Chronic diverticulosis -Chronic ischemic congestive heart failure EF 20-25% -Acute postprocedure blood loss anemia, expected from surgery -Dilutional thrombocytopenia Plan: Patient's current medications include DuoNeb, IV amiodarone, Norvasc, aspirin, Lipitor, Coreg, Plavix, subcu heparin, Zestril,. Care was discussed with the patient. On telemetry. Using incentive spirometry. Thank you Dr. Gleason Past Medical History Past Medical History: Coronary Artery Disease (CAD), Heart Failure, CVA/TIA, Myocardial Infarction (AR) Additional Past Medical History / Comment(s): hospitalized 03/29/20 with stroke with left hand weakness, CHF, episode of a -fib , Left ventricular thrombus., previous cva's found on testing., Hx of AAA repair 2004 and due to stents he is unable to have MRI greater than 3.5*. , tinnitus , hx diverticulitis. Last Myocardial Infarction Date:: 03/29/20 History of Any Multi-Drug Resistant Organisms: None Reported Past Surgical History: Heart Catheterization, Orthopedic Surgery, Tonsillectomy Additional Past Surgical History / Comment(s): bypass sx in left leg, AAA repair 2004, jason carpal tunnel, rt hand X2, KASSIE. Past Anesthesia/Blood Transfusion Reactions: No Reported Reaction Additional Past Anesthesia/Blood Transfusion Reaction / Comm: . Past Psychological History: No Psychological Hx Reported Smoking Status: Former smoker Past Alcohol Use History: None Reported Additional Past Alcohol Use History / Comment(s): Quit Smoking 04/10/20, smoked approx 1/2ppd, started smoking 1976. Past Drug Use History: None Reported - Past Family History Mother Family Medical History: COPD Father Additional Family Medical History / Comment(s): from Brain aneurysm family Family Medical History: No Reported History Medications and Allergies Home Medications Medication Instructions Recorded Confirmed Type Apixaban [Eliquis] 5 mg PO BID #30 tab 04/01/20 05/17/20 Rx Aspirin 81 mg PO DAILY #30 chew 04/01/20 05/17/20 Rx Clopidogrel [Plavix] 75 mg PO DAILY #30 tab 04/01/20 05/17/20 Rx lisinopriL [Zestril] 20 mg PO QAM 04/23/20 05/22/20 History Atorvastatin [Lipitor] 40 mg PO QAM 05/17/20 05/17/20 History carvediloL [Coreg] 6.25 mg PO BID 05/17/20 05/17/20 History Allergies Allergy/AdvReac Type Severity Reaction Status Date / Time Tetracyclines Allergy "made me Verified 05/24/20 05:48 sleep for a week" Physical Exam Vitals: Vital Signs Temp Pulse Resp BP Pulse Ox 05/25/20 18:00 96 29 H 92 L 05/25/20 17:30 98 14 92 L 05/25/20 17:00 94 17 93 L 05/25/20 16:32 90 05/25/20 16:30 80 22 91 L 05/25/20 16:00 80 23 92 L 05/25/20 15:30 81 16 92 L 05/25/20 15:00 75 22 91 L 05/25/20 14:30 22 92 L 05/25/20 14:00 85 21 92 L 05/25/20 13:30 82 33 H 92 L 05/25/20 13:00 73 20 92 L 05/25/20 12:30 79 13 90 L 05/25/20 12:00 97.7 F 80 26 H 90 L 05/25/20 11:48 75 05/25/20 11:40 74 05/25/20 11:30 72 25 H 91 L 05/25/20 11:01 78 29 H 91 L 05/25/20 10:30 80 21 94 L 05/25/20 10:00 72 16 94 L 05/25/20 09:30 75 21 94 L 05/25/20 09:00 73 25 H 95 05/25/20 08:46 72 05/25/20 08:31 73 05/25/20 08:30 74 13 94 L 05/25/20 08:00 72 23 97 05/25/20 07:00 71 27 H 99 05/25/20 06:30 69 22 97 05/25/20 06:00 74 34 H 127/73 84 L 05/25/20 05:30 77 30 H 127/73 91 L 05/25/20 05:00 69 21 125/66 95 05/25/20 04:30 68 20 95 05/25/20 04:00 99.0 F 71 16 94 L 05/25/20 03:30 71 19 96 05/25/20 03:00 68 16 120/63 96 05/25/20 02:30 70 16 95 05/25/20 02:00 70 18 123/65 95 05/25/20 01:30 71 20 96 05/25/20 01:00 69 14 121/64 97 05/25/20 00:30 68 18 121/64 97 05/25/20 00:00 98.2 F 67 17 113/66 96 05/24/20 23:33 70 26 H 113/66 92 L 05/24/20 23:30 66 24 113/66 97 05/24/20 23:00 68 20 122/69 95 05/24/20 22:30 69 17 122/69 96 05/24/20 22:00 69 20 96 05/24/20 21:30 68 16 97 05/24/20 21:00 70 19 95 05/24/20 20:53 68 05/24/20 20:43 68 05/24/20 20:30 69 12 111/60 97 05/24/20 20:00 66 14 97 05/24/20 19:30 69 17 119/65 95 05/24/20 19:05 94 L 05/24/20 19:00 75 27 H 134/68 86 L 05/24/20 18:45 67 18 134/68 92 L 05/24/20 18:30 68 21 134/68 93 L Intake and Output 05/25/20 05/25/20 05/25/20 06:59 14:59 22:59 Intake Total 600.516 397.263 103.622 Output Total 833 550 210 Balance -232.484 -152.737 -106.378 Intake: IV 533 327 78 CO/CI 70 80 Diltiazem 125 mg In 10 Sodium Chloride 0.9% 100 ml @ 5 MG/HR 5 mls/hr IV .Q24H [facility] Rx#:[id number] Pressure bags 63 57 18 Sodium Chloride 0.9% 1, 400 180 60 000 ml @ 20 mls/hr IV . Q24H [facility] Rx#:[id number] Intake, IV Titration 67.516 70.263 25.622 Amount Clevidipine Butyrate 25 38.000 10.133 20.05 mg In Empty Bag 1 bag @ 1 MG/HR 2 mls/hr IV .Q24H [facility] Rx#:[id number] Diltiazem 125 mg In 52.833 Sodium Chloride 0.9% 100 ml @ 5 MG/HR 5 mls/hr IV .Q24H [facility] Rx#:[id number] Insulin Regular 100 unit 4.166 7.297 5.572 In Sodium Chloride 0.9% 100 ml @ Per Protocol IV .Q0M [facility] Rx#:[id number] Nitroglycerin-D5w Pmx 50 25.35 mg In Dextrose/Water 1 250ml.bag @ 5 MCG/MIN 1.5 mls/hr IV .Q24H [facility] Rx#: [id number] Output: Chest Tube Drainage 420 240 110 Left Pleural/Mediastinal 420 240 110 Urine 413 310 100 Other: Voiding Method Indwelling Catheter Indwelling Catheter Indwelling Catheter Weight 84.4 kg 84.4 kg ABP, PAP, CO, CI - Last 8 Hours Arterial Blood Pressure 138/50 Arterial Blood Pressure 140/49 Arterial Blood Pressure 132/53 Arterial Blood Pressure 149/51 Arterial Blood Pressure 139/44 Arterial Blood Pressure 144/46 Arterial Blood Pressure 124/43 Arterial Blood Pressure 128/47 Arterial Blood Pressure 131/49 Arterial Blood Pressure 116/42 Arterial Blood Pressure 118/39 Arterial Blood Pressure 107/43 Arterial Blood Pressure 129/44 Arterial Blood Pressure 138/45 Arterial Blood Pressure 97/15 Arterial Blood Pressure 93/43 Results CBC & Chem 7: 05/25/20 04:00 05/25/20 04:00 Labs: Abnormal Lab Results - Last 24 Hours (Table) 05/21/20 05/24/20 05/24/20 Range/Units 08:00 18:35 18:38 WBC 12.8 H (3.8-10.6) k/uL RBC 3.36 L (4.30-5.90) m/uL Hgb 10.3 L (13.0-17.5) gm/dL Hct 30.3 L (39.0-53.0) % Plt Count 116 L (150-450) k/uL Neutrophils # 11.2 H (1.3-7.7) k/uL Lymphocytes # 0.8 L (1.0-4.8) k/uL ABG pH 7.34 L (7.35-7.45) ABG pO2 66 L (83-108) mmHg ABG O2 Saturation 93.2 L (94-97) % Sodium (137-145) mmol/L Chloride (98-107) mmol/L Carbon Dioxide (22-30) mmol/L BUN (9-20) mg/dL Glucose (74-99) mg/dL POC Glucose (mg/dL) (75-99) mg/dL Calcium (8.4-10.2) mg/dL Alkaline Phosphatase (38-126) U/L Total Protein (6.3-8.2) g/dL Crossmatch See Detail 05/24/20 05/24/20 05/24/20 Range/Units 19:01 20:03 21:12 WBC (3.8-10.6) k/uL RBC (4.30-5.90) m/uL Hgb (13.0-17.5) gm/dL Hct (39.0-53.0) % Plt Count (150-450) k/uL Neutrophils # (1.3-7.7) k/uL Lymphocytes # (1.0-4.8) k/uL ABG pH (7.35-7.45) ABG pO2 (83-108) mmHg ABG O2 Saturation (94-97) % Sodium (137-145) mmol/L Chloride (98-107) mmol/L Carbon Dioxide (22-30) mmol/L BUN (9-20) mg/dL Glucose (74-99) mg/dL POC Glucose (mg/dL) 140 H 121 H 101 H (75-99) mg/dL Calcium (8.4-10.2) mg/dL Alkaline Phosphatase (38-126) U/L Total Protein (6.3-8.2) g/dL Crossmatch 05/24/20 05/24/20 05/25/20 Range/Units 22:08 23:09 00:24 WBC (3.8-10.6) k/uL RBC (4.30-5.90) m/uL Hgb (13.0-17.5) gm/dL Hct (39.0-53.0) % Plt Count (150-450) k/uL Neutrophils # (1.3-7.7) k/uL Lymphocytes # (1.0-4.8) k/uL ABG pH (7.35-7.45) ABG pO2 (83-108) mmHg ABG O2 Saturation (94-97) % Sodium (137-145) mmol/L Chloride (98-107) mmol/L Carbon Dioxide (22-30) mmol/L BUN (9-20) mg/dL Glucose (74-99) mg/dL POC Glucose (mg/dL) 118 H 134 H 123 H (75-99) mg/dL Calcium (8.4-10.2) mg/dL Alkaline Phosphatase (38-126) U/L Total Protein (6.3-8.2) g/dL Crossmatch 05/25/20 05/25/20 05/25/20 Range/Units 01:11 03:14 03:59 WBC (3.8-10.6) k/uL RBC (4.30-5.90) m/uL Hgb (13.0-17.5) gm/dL Hct (39.0-53.0) % Plt Count (150-450) k/uL Neutrophils # (1.3-7.7) k/uL Lymphocytes # (1.0-4.8) k/uL ABG pH (7.35-7.45) ABG pO2 (83-108) mmHg ABG O2 Saturation (94-97) % Sodium (137-145) mmol/L Chloride (98-107) mmol/L Carbon Dioxide (22-30) mmol/L BUN (9-20) mg/dL Glucose (74-99) mg/dL POC Glucose (mg/dL) 128 H 135 H 127 H (75-99) mg/dL Calcium (8.4-10.2) mg/dL Alkaline Phosphatase (38-126) U/L Total Protein (6.3-8.2) g/dL Crossmatch 05/25/20 05/25/20 05/25/20 Range/Units 04:00 04:00 06:11 WBC 14.8 H (3.8-10.6) k/uL RBC 3.46 L (4.30-5.90) m/uL Hgb 10.2 L (13.0-17.5) gm/dL Hct 31.2 L (39.0-53.0) % Plt Count 117 L (150-450) k/uL Neutrophils # 13.2 H (1.3-7.7) k/uL Lymphocytes # 0.7 L (1.0-4.8) k/uL ABG pH (7.35-7.45) ABG pO2 (83-108) mmHg ABG O2 Saturation (94-97) % Sodium 135 L (137-145) mmol/L Chloride 110 H (98-107) mmol/L Carbon Dioxide 19 L (22-30) mmol/L BUN 22 H (9-20) mg/dL Glucose 122 H (74-99) mg/dL POC Glucose (mg/dL) 152 H (75-99) mg/dL Calcium 8.2 L (8.4-10.2) mg/dL Alkaline Phosphatase 37 L (38-126) U/L Total Protein 5.6 L (6.3-8.2) g/dL Crossmatch 05/25/20 05/25/20 05/25/20 Range/Units 07:55 09:49 11:19 WBC (3.8-10.6) k/uL RBC (4.30-5.90) m/uL Hgb (13.0-17.5) gm/dL Hct (39.0-53.0) % Plt Count (150-450) k/uL Neutrophils # (1.3-7.7) k/uL Lymphocytes # (1.0-4.8) k/uL ABG pH (7.35-7.45) ABG pO2 (83-108) mmHg ABG O2 Saturation (94-97) % Sodium (137-145) mmol/L Chloride (98-107) mmol/L Carbon Dioxide (22-30) mmol/L BUN (9-20) mg/dL Glucose (74-99) mg/dL POC Glucose (mg/dL) 136 H 124 H 114 H (75-99) mg/dL Calcium (8.4-10.2) mg/dL Alkaline Phosphatase (38-126) U/L Total Protein (6.3-8.2) g/dL Crossmatch 05/25/20 05/25/20 05/25/20 Range/Units 12:09 14:04 15:58 WBC (3.8-10.6) k/uL RBC (4.30-5.90) m/uL Hgb (13.0-17.5) gm/dL Hct (39.0-53.0) % Plt Count (150-450) k/uL Neutrophils # (1.3-7.7) k/uL Lymphocytes # (1.0-4.8) k/uL ABG pH (7.35-7.45) ABG pO2 (83-108) mmHg ABG O2 Saturation (94-97) % Sodium (137-145) mmol/L Chloride (98-107) mmol/L Carbon Dioxide (22-30) mmol/L BUN (9-20) mg/dL Glucose (74-99) mg/dL POC Glucose (mg/dL) 127 H 123 H 137 H (75-99) mg/dL Calcium (8.4-10.2) mg/dL Alkaline Phosphatase (38-126) U/L Total Protein (6.3-8.2) g/dL Crossmatch 05/25/20 Range/Units 17:39 WBC (3.8-10.6) k/uL RBC (4.30-5.90) m/uL Hgb (13.0-17.5) gm/dL Hct (39.0-53.0) % Plt Count (150-450) k/uL Neutrophils # (1.3-7.7) k/uL Lymphocytes # (1.0-4.8) k/uL ABG pH (7.35-7.45) ABG pO2 (83-108) mmHg ABG O2 Saturation (94-97) % Sodium (137-145) mmol/L Chloride (98-107) mmol/L Carbon Dioxide (22-30) mmol/L BUN (9-20) mg/dL Glucose (74-99) mg/dL POC Glucose (mg/dL) 160 H (75-99) mg/dL Calcium (8.4-10.2) mg/dL Alkaline Phosphatase (38-126) U/L Total Protein (6.3-8.2) g/dL Crossmatch
[2020-05-25 18:40] LABS: Glucose,Whole Blood 120 mg/dL (75-99)
[2020-05-25 20:07] LABS: Glucose,Whole Blood 133 mg/dL (75-99)
[2020-05-25] MEDS: SENNOSIDES-DOCUSATE SODIUM 1 EACH TAB PO SCH (20:38)
[2020-05-25 22:34] LABS: Glucose,Whole Blood 124 mg/dL (75-99)
[2020-05-26] MEDS: HEPARIN SODIUM,PORCINE 5,000 UNIT/ML 1 ML VIAL SQ SCH ×4 (00:07→23:28)
[2020-05-26] MEDS: HYDROcodone/APAP 5-325MG 1 EACH TAB PO PRN ×2 (00:07→05:43)
[2020-05-26 00:13] LABS: Glucose,Whole Blood 120 mg/dL (75-99)
[2020-05-26 02:05] LABS: Glucose,Whole Blood 116 mg/dL (75-99)
[2020-05-26 04:06] LABS: Glucose,Whole Blood 119 mg/dL (75-99)
[2020-05-26 04:23] LABS: Basophils # (A) 0.1 k/uL (0-0.2); Basophils % (A) 0 %; Eosinophils # (A) 0.1 k/uL (0-0.7); Eosinophils % (A) 1 %; HGB 9.2 gm/dL (13.0-17.5); Lymphocytes % (A) 6 %; MCH 29.6 pg (25.0-35.0); MCHC 32.9 g/dL (31.0-37.0); MCV 90.2 fL (80.0-100.0); Mean Platelet Volume 8.8; Monocytes # (A) 0.9 k/uL (0-1.0); Monocytes % (A) 5 %; Neutrophils # (A) 14.7 k/uL (1.3-7.7); Neutrophils % (A) 87 %; Platelet Count 111 k/uL (150-450); RDW 15.1 % (11.5-15.5); WBC 16.9 k/uL (3.8-10.6)
[2020-05-26 05:06] LABS: Albumin 3.3 g/dL (3.5-5.0); Calcium 8.5 mg/dL (8.4-10.2); Potassium 4.3 mmol/L (3.5-5.1); Total Bilirubin 0.7 mg/dL (0.2-1.3); Total Protein 5.3 g/dL (6.3-8.2)
[2020-05-26] MEDS: CLEVIDIPINE BUTYRATE 25 MG in EMPTY BAG 1 BAG IV SCH (05:38)
[2020-05-26 06:23] LABS: Glucose,Whole Blood 124 mg/dL (75-99)
[2020-05-26] MEDS: PANTOPRAZOLE 40 MG TABLET PO SCH (07:08)
[2020-05-26] MEDS: carvediloL 6.25 MG TAB PO SCH (07:08)
--- NOTE | 2020-05-26 07:17 | XR ---
EXAMINATION TYPE: XR chest 1V portable DATE OF EXAM: 05/26/2020 COMPARISON: 05/25/2020 HISTORY: Postop TECHNIQUE: Single frontal view of the chest is obtained. FINDINGS: Merkel-James catheter has been removed. Mediastinal drain and chest tube seen. No sizable tho rax. Postoperative change, cardiomegaly and persistent bilateral infiltrate and pleural effusion stab le. IMPRESSION: 1. Bilateral infiltrate or atelectasis with small effusion stable.
[2020-05-26] MEDS ORDERED: HYDROcodone/APAP 7.5-325MG 1 EACH TAB PO PRN (07:53)
[2020-05-26] MEDS: IPRATROPIUM-ALBUTEROL 3 ML NEB INHALATION SCH ×4 (08:04→20:16)
--- NOTE | 2020-05-26 08:20 | P.PN ---
Subjective Progress Note Date: 05/26/20 Principal diagnosis: Multivessel coronary artery disease. Previous medical history of recent non- STEMI, systolic heart failure/ischemic cardiomyopathy with most recent EF 35% improved from 20-25%, left ventricular thrombus, moderate mitral valve regurgitation, recent ischemic stroke, paroxysmal atrial fibrillation, hypertension, hyperlipidemia, chronic and ongoing tobacco dependence with FEV1 111% of predicted, peripheral arterial disease status post aortobifemoral bypass in 2004. POD #2 off-pump coronary artery bypass graft 4, left internal mammary artery to the left anterior descending artery, reverse saphenous vein graft from the aorta to the right coronary artery, radial artery to the intermediate coronary artery, and reverse saphenous vein graft from the aorta to the first diagonal branch. Endovascular left greater saphenous vein harvest from the ankle to the thigh. Left radial artery harvest. Occlusion of the left atrial appendage with a 35 mm AtriCure clip Postoperative acute blood loss anemia and thrombocytopenia, expected, dilutional Patient's currently sitting up in a recliner in the intensive care unit in no acute distress. Does complain of postoperative chest pain and pain in his chest tube insertion sites, denies shortness of breath. Remains in normal sinus rhythm and hemodynamically stable. Right internal jugular Cordis, right radial arterial line, mediastinal/left pleural chest tubes all remaining present. No new concerns. Objective - Vital Signs Vital signs: Vital Signs Temp 98.6 F 05/26/20 04:00 Pulse 98 05/26/20 08:04 Resp 28 H 05/26/20 07:00 BP 127/73 05/25/20 06:00 Pulse Ox 97 05/26/20 07:00 Intake & Output 05/25/20 05/26/20 05/26/20 18:59 06:59 18:59 Intake Total 529.410 403.566 26 Output Total 790 669 35 Balance -260.590 -265.434 -9 Weight 84.4 kg 81.2 kg Intake: IV 431 312 26 CO/CI 80 Diltiazem 125 mg In 10 Sodium Chloride 0.9% 100 ml @ 5 MG/HR 5 mls/hr IV .Q24H [facility] Rx#:[id number] Pressure bags 81 72 6 Sodium Chloride 0.9% 1, 260 240 20 000 ml @ 20 mls/hr IV . Q24H [facility] Rx#:[id number] Intake, IV Titration 98.410 91.566 Amount Clevidipine Butyrate 25 30.183 86.734 mg In Empty Bag 1 bag @ 1 MG/HR 2 mls/hr IV .Q24H [facility] Rx#:[id number] Diltiazem 125 mg In 52.833 Sodium Chloride 0.9% 100 ml @ 5 MG/HR 5 mls/hr IV .Q24H [facility] Rx#:[id number] Insulin Regular 100 unit 15.394 4.832 In Sodium Chloride 0.9% 100 ml @ Per Protocol IV .Q0M [facility] Rx#:[id number] Output: Chest Tube Drainage 350 260 Left Pleural/Mediastinal 350 260 Drainage 20 Left Arm 20 Urine 440 389 35 Other: Voiding Method Indwelling Catheter Indwelling Catheter ABP, PAP, CO, CI - Last Documented Arterial Blood Pressure 135/52 Pulmonary Artery Pressure 24/9 Cardiac Output 4.6 Cardiac Index 2.4 - Constitutional General appearance: Present: cooperative, no acute distress - Respiratory Details: Lungs sounds diminished bilaterally. Respirations even, nonlabored. Currently on 6 L nasal cannula with oxygen saturation 96%. Able to achieve 500 mL on his incentive spirometry. Weak cough. Mediastinal/left pleural chest tube present to continuous wall suction, no air leak present. [address] laureen overnight, 650 mL in the last 24 hours. - Cardiovascular Details: S1, S2 present. Regular rate and rhythm, sinus rhythm on telemetry. Sternum stable. Palpable peripheral pulses bilaterally. Trace generalized edema present. No calf pain or tenderness noted. Right internal jugular Cordis, right radial arterial line present. Heart hugger in place with patient demonstrating appropriate use. Antiembolism stockings, SCDs present. - Gastrointestinal Gastrointestinal Comment(s): Abdomen soft, nontender, nondistended. Active bowel sounds present 4 quadrants. Tolerating diet. Positive flatus, negative bowel movement. - Genitourinary Genitourinary Comment(s): Clemens present draining clear, yellow urine. Output 20-50 mL/h overnight - Integumentary Integumentary Comment(s): Skin is warm and dry with evidence of good perfusion. Anterior chest incision well approximated and covered with dry intact dressing. 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 Left lower extremity EVH site well approximated - Neurologic Neurologic: Present: CNII-XII intact - Musculoskeletal Musculoskeletal: Present: gait normal, strength equal bilaterally - Psychiatric Psychiatric: Present: A&O x's 3, appropriate affect, intact judgment & insight - Allied health notes Allied health notes reviewed: nursing - Labs CBC & Chem 7: 05/26/20 04:00 05/26/20 04:00 Labs: Abnormal Lab Results - Last 24 Hours (Table) 05/25/20 05/25/20 05/25/20 Range/Units 09:49 11:19 12:09 WBC (3.8-10.6) k/uL RBC (4.30-5.90) m/uL Hgb (13.0-17.5) gm/dL Hct (39.0-53.0) % Plt Count (150-450) k/uL Neutrophils # (1.3-7.7) k/uL Sodium (137-145) mmol/L Chloride (98-107) mmol/L Carbon Dioxide (22-30) mmol/L BUN (9-20) mg/dL Glucose (74-99) mg/dL POC Glucose (mg/dL) 124 H 114 H 127 H (75-99) mg/dL Total Protein (6.3-8.2) g/dL Albumin (3.5-5.0) g/dL 05/25/20 05/25/20 05/25/20 Range/Units 14:04 15:58 17:39 WBC (3.8-10.6) k/uL RBC (4.30-5.90) m/uL Hgb (13.0-17.5) gm/dL Hct (39.0-53.0) % Plt Count (150-450) k/uL Neutrophils # (1.3-7.7) k/uL Sodium (137-145) mmol/L Chloride (98-107) mmol/L Carbon Dioxide (22-30) mmol/L BUN (9-20) mg/dL Glucose (74-99) mg/dL POC Glucose (mg/dL) 123 H 137 H 160 H (75-99) mg/dL Total Protein (6.3-8.2) g/dL Albumin (3.5-5.0) g/dL 05/25/20 05/25/20 05/25/20 Range/Units 18:37 20:06 22:32 WBC (3.8-10.6) k/uL RBC (4.30-5.90) m/uL Hgb (13.0-17.5) gm/dL Hct (39.0-53.0) % Plt Count (150-450) k/uL Neutrophils # (1.3-7.7) k/uL Sodium (137-145) mmol/L Chloride (98-107) mmol/L Carbon Dioxide (22-30) mmol/L BUN (9-20) mg/dL Glucose (74-99) mg/dL POC Glucose (mg/dL) 120 H 133 H 124 H (75-99) mg/dL Total Protein (6.3-8.2) g/dL Albumin (3.5-5.0) g/dL 05/26/20 05/26/20 05/26/20 Range/Units 00:12 02:03 04:00 WBC 16.9 H (3.8-10.6) k/uL RBC 3.10 L (4.30-5.90) m/uL Hgb 9.2 L (13.0-17.5) gm/dL Hct 28.0 L (39.0-53.0) % Plt Count 111 L (150-450) k/uL Neutrophils # 14.7 H (1.3-7.7) k/uL Sodium (137-145) mmol/L Chloride (98-107) mmol/L Carbon Dioxide (22-30) mmol/L BUN (9-20) mg/dL Glucose (74-99) mg/dL POC Glucose (mg/dL) 120 H 116 H (75-99) mg/dL Total Protein (6.3-8.2) g/dL Albumin (3.5-5.0) g/dL 05/26/20 05/26/20 05/26/20 Range/Units 04:00 04:05 06:21 WBC (3.8-10.6) k/uL RBC (4.30-5.90) m/uL Hgb (13.0-17.5) gm/dL Hct (39.0-53.0) % Plt Count (150-450) k/uL Neutrophils # (1.3-7.7) k/uL Sodium 133 L (137-145) mmol/L Chloride 108 H (98-107) mmol/L Carbon Dioxide 21 L (22-30) mmol/L BUN 28 H (9-20) mg/dL Glucose 113 H (74-99) mg/dL POC Glucose (mg/dL) 119 H 124 H (75-99) mg/dL Total Protein 5.3 L (6.3-8.2) g/dL Albumin 3.3 L (3.5-5.0) g/dL - Imaging and Cardiology Chest x-ray: report reviewed, image reviewed Assessment and Plan Assessment: 1. Multivessel coronary artery disease, status post four-vessel off-pump CABG 2. History of recent non-STEMI 3. Systolic heart failure/ischemic cardiomyopathy with most recent EF 35% improved from 20-25%, left ventricular thrombus, moderate mitral valve regurgitation 4. Recent ischemic stroke 5. Paroxysmal atrial fibrillation, on Eliquis for anticoagulation, currently in sinus, status post left atrial appendage ligation with 35 mm AtriCure clip 6. Hypertension 7. Hyperlipidemia, cholesterol 243, LDL 185 8. Chronic and ongoing tobacco dependence with FEV1 111% of predicted post bronchodilator 9. Peripheral arterial disease status post aortobifemoral bypass in 2004. 10. Postoperative acute blood loss anemia and from sit opinion, expected Plan: 1. Continue aspirin, statin, Plavix, beta mona therapy. Will increase beta mona as tolerated, Coreg switched to metoprolol for better heart rate control. 2. Wean O2 as tolerated. Bronchodilators per pulmonology. Encourage incentive spirometry 10 times every hour while awake 3. Increase activity, ambulate as tolerated. PT/OT/cardiac rehab consulted 4. Continue CCB for radial artery spasm prophylaxis. Do not discontinue CCB without discussing with cardiac surgery 5. Continue Cordis for continuous CVP monitoring, arterial line 6. Will monitor daily labs and x-rays. Electrolyte replacement per protocol. No transfusion necessary at this time. Will give 20 mg IV Lasix 1 today 7. GI/DVT prophylaxis 8. Insulin management per primary care service 9. Pain control with current medication regimen, [place] dose increased due to pain 10. Will discontinue mediastinal chest tube, will leave left pleural chest tubes for another 24 hours 11. Discontinue Clemens catheter after Lasix diuresis. May bladder scan and straight cath for greater than 300 mL residual 12. Strict accurate intake and output. Daily weights. 13. More recommendations to follow based on patient's progress Seen and examined and agree with above Time with Patient: Greater than 30
[2020-05-26] MEDS: ASPIRIN 325 MG TAB PO SCH (08:29)
[2020-05-26] MEDS: amLODIPine 5 MG TAB PO SCH (08:29)
[2020-05-26] MEDS: ATORVASTATIN 40 MG TAB PO SCH (08:29)
[2020-05-26] MEDS: CLOPIDOGREL 75 MG TAB PO SCH (08:29)
[2020-05-26 08:37] LABS: Glucose,Whole Blood 181 mg/dL (75-99)
[2020-05-26] MEDS ORDERED: FUROSEMIDE 10 MG/ML 2 ML VIAL IV ONE (08:49)
[2020-05-26 10:04] LABS: Glucose,Whole Blood 149 mg/dL (75-99)
[2020-05-26] MEDS: SODIUM CHLORIDE 0.9% 1,000 ML IV SCH (10:05)
[2020-05-26] MEDS: INSULIN ASPART (NovoLOG) 100 UNIT/ML VIAL SQ SCH ×3 (11:46→19:53)
[2020-05-26 11:47] LABS: Glucose,Whole Blood 130 mg/dL (75-99)
[2020-05-26] MEDS: METOPROLOL TARTRATE 25 MG TAB PO SCH ×2 (11:53→19:59)
[2020-05-26] MEDS ORDERED: lisinopriL 20 MG TAB PO SCH (12:00)
--- NOTE | 2020-05-26 14:10 | P.PN ---
Subjective Progress Note Date: 05/26/20 Principal diagnosis: Multivessel coronary artery disease status post coronary artery bypass grafting 4 This is a 64-year-old tall white male patient who was hospitalized in March 2020 when he presented to the emergency department with complaints of severe shortness of breath, was diagnosed with non-ST elevated myocardial infarction, and his cardiac workup showed the multivessel coronary artery disease. During the same admission patient experienced acute ischemic stroke involving his right MCA. Transesophageal echocardiogram revealed severely impaired left ventricular systolic function with an EF of 20-25%, and intracardiac thrombus. Repeat transesophageal echocardiogram in April 2020 showed improvement in left ventricular systolic function and resolution of the intracardiac thrombus. Patient was referred to CT surgery for possibility of coronary artery bypass grafting. Today on 05/24/2020 patient underwent off-pump CABG 4 with endovascular vein harvest and the radial harvest and occlusion of the left atrial appendage. Patient is seen in the intensive care unit following his surgery he is sedated and intubated on mechanical ventilator, with assist-c ontrol mode of ventilation with a rate of 12, tidal volumes 500, FiO2 is 50% and PEEP of 5. His postoperative blood gases showed pO2 of 369, pCO2 40, pH of 7.3, is was on FiO2 of 100%, and it has since been dropped to 50%. Hemodynamically stable, maintenance IV drips of 0.9 normal saline at a rate of 50 ML per hour, Cardizem is a 5 mg per hour, nitroglycerin is at 5 mics per kilo per minute, and improving is at 20 mics per kilo per minute. Patient is in sinus mechanism with a bradycardic rate of 51 BPM, PA pressure 35/20, cardiac output is 4.2, cardiac index is 2.2. Mediastinal and left pleural chest tube is why connected together, with a total of 180 cc of sanguinous output in the Pleur-evac which is connected to wall suction, with no evidence of air leak. Postoperative chest x- ray shows left lower lobe infiltrate likely related to atelectasis, ET tube, PA catheter in appropriate positions. On 05/25/2020 patient seen in follow-up in the intensive care unit. He was successfully extubated at 1800 yesterday on postoperative day 0 on 05/24/2020. Today is postoperative day 1, status post four-vessel coronary artery bypass grafting, with the left radial artery harvest, in the left leg endoscopic vein harvest and exclusion of the left atrial appendage. He is doing very well, h emodynamically stable, in sinus mechanism, no bradycardia, no tachycardia, he is on Cleviprex drip at 2 mg per hour, blood pressures 129/44, insulin is at 1-1/2 units per hour, 3 L of oxygen pulse ox 94-97%. Lung sounds are clear, his incentive spirometry is around 800 mL, his pain is reasonably controlled, his left pleural and mediastinal chest tube throughout around 1300 of thin serosanguineous output in last 24 hours. His urine output is in order of 40-70 ML per hour, his last cardiac output was 4.6 and cardiac index was 2.4, with PA pressure of 24/9, and CVP of 2 as of 05 09 this morning, patient has been hemodynamically stable, and PA catheter has been discontinued this morning. Today's chest x-ray shows small atelectasis in the right base, improving left lower lobe infiltrate. His blood work has been reviewed showing white blood cell count of 14.8, hemoglobin of 10.2, platelet count is 117, sodium is 135, potassium 4.4, chloride is 110, CO2 is 19, BUN is 22, creatinine 0.89 The patient is seen today 05/26/2020 in follow-up in the intensive care unit. He is awake and alert in no acute distress. This is postoperative day #2 of his four-vessel coronary artery bypass surgery. He is doing quite well. He's been up ambulating with assistance. He is maintaining O2 saturations in the 90s on 4 L/m per nasal cannula. He's been afebrile. White count 16.9. Hemoglobin 9.2. Platelets 111,000. Sodium 133. Bicarb 21. Creatinine 1.04. 0.9 normal saline at KVO. He remains on bronchodilators. He is working well with the incentive spirometer. Chest x-ray reveals bilateral infiltrates/atelectasis with small effusions. Stable compared to previous. Objective - Vital Signs Vital signs: Vital Signs Temp 97.6 F 05/26/20 12:00 Pulse 76 05/26/20 13:30 Resp 18 05/26/20 13:30 BP 127/73 05/25/20 06:00 Pulse Ox 97 05/26/20 13:30 Intake & Output 1005/26/20 05/26/20 18:59 06:59 18:59 Intake Total 529.410 403.566 208 Output Total 790 669 651 Balance -260.590 -265.434 -443 Weight 84.4 kg 81.2 kg Intake: IV 431 312 208 CO/CI 80 Diltiazem 125 mg In 10 Sodium Chloride 0.9% 100 ml @ 5 MG/HR 5 mls/hr IV .Q24H [facility] Rx#:[id number] Pressure bags 81 72 48 Sodium Chloride 0.9% 1, 260 240 160 000 ml @ 20 mls/hr IV . Q24H [facility] Rx#:[id number] Intake, IV Titration 98.410 91.566 Amount Clevidipine Butyrate 25 30.183 86.734 mg In Empty Bag 1 bag @ 1 MG/HR 2 mls/hr IV .Q24H [facility] Rx#:[id number] Diltiazem 125 mg In 52.833 Sodium Chloride 0.9% 100 ml @ 5 MG/HR 5 mls/hr IV .Q24H [facility] Rx#:[id number] Insulin Regular 100 unit 15.394 4.832 In Sodium Chloride 0.9% 100 ml @ Per Protocol IV .Q0M [facility] Rx#:[id number] Output: Chest Tube Drainage 350 260 106 Left Lateral Chest 66 Left Pleural/Mediastinal 350 260 40 Drainage 20 Left Arm 20 Urine 440 389 545 Other: Voiding Method Indwelling Catheter Indwelling Catheter Indwelling Catheter ABP, PAP, CO, CI - Last Documented Arterial Blood Pressure 83/35 Pulmonary Artery Pressure 24/9 Cardiac Output 4.5 Cardiac Index 2.4 - Exam GENERAL EXAM: Alert, oriented 3, very pleasant 64-year-old gentleman, 4 L of oxygen and the pulse ox of 93% comfortable in no apparent distress. HEAD: Normocephalic/atraumatic. EYES: Normal reaction of pupils, equal size. Conjunctiva pink, sclera white. NOSE: Clear with pink turbinates. THROAT: No erythema or exudates. NECK: No masses, no JVD, no thyroid enlargement, no adenopathy. CHEST: No chest wall deformity. Symmetrical expansion. Midsternal incision clean dry and intact LUNGS: Equal air entry with basilar crackles CVS: Regular rate and rhythm, normal S1 and S2, no gallops, no murmurs, no rubs ABDOMEN: Soft, nontender. No hepatosplenomegaly, normal bowel sounds, no guarding or rigidity. EXTREMITIES: No clubbing, no edema, no cyanosis, 2+ pulses and upper and lower extremities. MUSCULOSKELETAL: Muscle strength and tone normal. Left radial artery harvest site clean dry and intact, left leg venous graft harvest site wrapped in Regan dressings SPINE: No scoliosis or deformity SKIN: No rashes CENTRAL NERVOUS SYSTEM: Awake and alert, oriented 3 No focal deficits, tone is normal in all 4 extremities. - Labs CBC & Chem 7: 05/26/20 04:00 05/26/20 04:00 Labs: Abnormal Lab Results - Last 24 Hours (Table) 05/25/20 05/25/20 05/25/20 Range/Units 14:04 15:58 17:39 WBC (3.8-10.6) k/uL RBC (4.30-5.90) m/uL Hgb (13.0-17.5) gm/dL Hct (39.0-53.0) % Plt Count (150-450) k/uL Neutrophils # (1.3-7.7) k/uL Sodium (137-145) mmol/L Chloride (98-107) mmol/L Carbon Dioxide (22-30) mmol/L BUN (9-20) mg/dL Glucose (74-99) mg/dL POC Glucose (mg/dL) 123 H 137 H 160 H (75-99) mg/dL Total Protein (6.3-8.2) g/dL Albumin (3.5-5.0) g/dL 05/25/20 05/25/20 05/25/20 Range/Units 18:37 20:06 22:32 WBC (3.8-10.6) k/uL RBC (4.30-5.90) m/uL Hgb (13.0-17.5) gm/dL Hct (39.0-53.0) % Plt Count (150-450) k/uL Neutrophils # (1.3-7.7) k/uL Sodium (137-145) mmol/L Chloride (98-107) mmol/L Carbon Dioxide (22-30) mmol/L BUN (9-20) mg/dL Glucose (74-99) mg/dL POC Glucose (mg/dL) 120 H 133 H 124 H (75-99) mg/dL Total Protein (6.3-8.2) g/dL Albumin (3.5-5.0) g/dL 05/26/20 05/26/20 05/26/20 Range/Units 00:12 02:03 04:00 WBC 16.9 H (3.8-10.6) k/uL RBC 3.10 L (4.30-5.90) m/uL Hgb 9.2 L (13.0-17.5) gm/dL Hct 28.0 L (39.0-53.0) % Plt Count 111 L (150-450) k/uL Neutrophils # 14.7 H (1.3-7.7) k/uL Sodium (137-145) mmol/L Chloride (98-107) mmol/L Carbon Dioxide (22-30) mmol/L BUN (9-20) mg/dL Glucose (74-99) mg/dL POC Glucose (mg/dL) 120 H 116 H (75-99) mg/dL Total Protein (6.3-8.2) g/dL Albumin (3.5-5.0) g/dL 05/26/20 05/26/20 05/26/20 Range/Units 04:00 04:05 06:21 WBC (3.8-10.6) k/uL RBC (4.30-5.90) m/uL Hgb (13.0-17.5) gm/dL Hct (39.0-53.0) % Plt Count (150-450) k/uL Neutrophils # (1.3-7.7) k/uL Sodium 133 L (137-145) mmol/L Chloride 108 H (98-107) mmol/L Carbon Dioxide 21 L (22-30) mmol/L BUN 28 H (9-20) mg/dL Glucose 113 H (74-99) mg/dL POC Glucose (mg/dL) 119 H 124 H (75-99) mg/dL Total Protein 5.3 L (6.3-8.2) g/dL Albumin 3.3 L (3.5-5.0) g/dL 05/26/20 05/26/20 05/26/20 Range/Units 08:35 10:01 11:45 WBC (3.8-10.6) k/uL RBC (4.30-5.90) m/uL Hgb (13.0-17.5) gm/dL Hct (39.0-53.0) % Plt Count (150-450) k/uL Neutrophils # (1.3-7.7) k/uL Sodium (137-145) mmol/L Chloride (98-107) mmol/L Carbon Dioxide (22-30) mmol/L BUN (9-20) mg/dL Glucose (74-99) mg/dL POC Glucose (mg/dL) 181 H 149 H 130 H (75-99) mg/dL Total Protein (6.3-8.2) g/dL Albumin (3.5-5.0) g/dL Assessment and Plan Assessment: #1. Symptomatic multivessel coronary artery disease, status post four-vessel coronary artery bypass grafting with BERNARDO to the LAD, radial arterial graft to intermediate coronary artery, SVG to the diagonal, SVG to the RCA, with left radial artery harvest, left leg endoscopic vein harvest, and exclusion of the left atrial appendage, postoperative day #2 #2. Recent history of non-ST elevated myocardial infarction in March 2020 #3. Recent history of ischemic stroke involving the right MCA in March 2020 #4. Severe ischemic cardiomyopathy with EF of 20-25%, with the recent documented improvement up to 40% on most recent transesophageal echocardiogram #5. Intracardiac thrombus in the left ventricle seen on the transesophageal echocardiogram from March 2020, resolved #6. Paroxysmal atrial fibrillation #7. Hypertension #8. Hyperlipidemia #9. Chronic ongoing tobacco dependence #10. History of peripheral arterial disease status post aorto bifemoral bypass in 2004 #11. Routine postoperative ventilator management, patient was successfully weaned and extubated on postoperative day 0 on 05/24/2020 Plan: The patient was seen and evaluated by Dr. Macias Chest x-ray and labs reviewed Continues to work well with the incentive spirometer Continue bronchodilators Increase his activity as tolerated We will continue to follow and make further recommendations based on his clinical status I, the cosigning physician, performed a history & physical examination of the patient. Lungs sounds with basilar crackles. Maintaining good O2 saturations in the 90s on 4 L/m per nasal cannula. I discussed the assessment and plan of care with my nurse practitioner, Kaycee Churchill. I attest to the above note as dictated by her.
--- NOTE | 2020-05-26 15:34 | P.PN ---
Subjective Progress Note Date: 05/26/20 This is a 64-year-old gentleman status postI to coronary bypass surgery. Postoperative day 2 Patient had four-vessel bypass surgery. Patient is feeling well. Doesn't seem to be in acute distress. His oxygen saturation are 90% on 4 L. Patient is afebrile. Hemoglobin is 9.2. Creatinine is 1.04. He is on bronchodilators. Maintaining sinus rhythm. No arrhythmias noted. Patient seemed to be stable. He is sitting up in the chair Objective - Vital Signs Vital signs: Vital Signs Temp 97.6 F 05/26/20 12:00 Pulse 80 05/26/20 15:23 Resp 23 05/26/20 14:00 BP 127/73 05/25/20 06:00 Pulse Ox 98 05/26/20 14:00 Intake & Output 05/25/20 05/26/20 05/26/20 18:59 06:59 18:59 Intake Total 529.410 403.566 208 Output Total 790 669 651 Balance -260.590 -265.434 -443 Weight 84.4 kg 81.2 kg Intake: IV 431 312 208 CO/CI 80 Diltiazem 125 mg In 10 Sodium Chloride 0.9% 100 ml @ 5 MG/HR 5 mls/hr IV .Q24H [facility] Rx#:[id number] Pressure bags 81 72 48 Sodium Chloride 0.9% 1, 260 240 160 000 ml @ 20 mls/hr IV . Q24H [facility] Rx#:[id number] Intake, IV Titration 98.410 91.566 Amount Clevidipine Butyrate 25 30.183 86.734 mg In Empty Bag 1 bag @ 1 MG/HR 2 mls/hr IV .Q24H [facility] Rx#:[id number] Diltiazem 125 mg In 52.833 Sodium Chloride 0.9% 100 ml @ 5 MG/HR 5 mls/hr IV .Q24H [facility] Rx#:[id number] Insulin Regular 100 unit 15.394 4.832 In Sodium Chloride 0.9% 100 ml @ Per Protocol IV .Q0M [facility] Rx#:[id number] Output: Chest Tube Drainage 350 260 106 Left Lateral Chest 66 Left Pleural/Mediastinal 350 260 40 Drainage 20 Left Arm 20 Urine 440 389 545 Other: Voiding Method Indwelling Catheter Indwelling Catheter Indwelling Catheter ABP, PAP, CO, CI - Last Documented Arterial Blood Pressure 95/36 Pulmonary Artery Pressure 24/9 Cardiac Output 4.5 Cardiac Index 2.4 - Exam GENERAL EXAM: Patient is alert and oriented and doesn't appear to be in any acute distress HEENT: Normocephalic. Normal reaction of pupils, equal size, normal range of extraocular motion. No erythema or exudates in the throat. NECK: No masses, no nuchal rigidity. CHEST: No chest wall deformity. LUNGS: No significant wheezing or rhonchi HEART: [S1 and S2 normal Pericardial rub heard ABDOMEN: No hepatosplenomegaly, normal bowel sounds, no guarding or rigidity. SKIN: No rashes CENTRAL NERVOUS SYSTEM: No focal deficits. EXTREMITIES: No cyanosis, clubbing or edema. - Labs CBC & Chem 7: 05/26/20 04:00 05/26/20 04:00 Labs: Abnormal Lab Results - Last 24 Hours (Table) 05/25/20 05/25/20 05/25/20 Range/Units 15:58 17:39 18:37 WBC (3.8-10.6) k/uL RBC (4.30-5.90) m/uL Hgb (13.0-17.5) gm/dL Hct (39.0-53.0) % Plt Count (150-450) k/uL Neutrophils # (1.3-7.7) k/uL Sodium (137-145) mmol/L Chloride (98-107) mmol/L Carbon Dioxide (22-30) mmol/L BUN (9-20) mg/dL Glucose (74-99) mg/dL POC Glucose (mg/dL) 137 H 160 H 120 H (75-99) mg/dL Total Protein (6.3-8.2) g/dL Albumin (3.5-5.0) g/dL 05/25/20 05/25/20 05/26/20 Range/Units 20:06 22:32 00:12 WBC (3.8-10.6) k/uL RBC (4.30-5.90) m/uL Hgb (13.0-17.5) gm/dL Hct (39.0-53.0) % Plt Count (150-450) k/uL Neutrophils # (1.3-7.7) k/uL Sodium (137-145) mmol/L Chloride (98-107) mmol/L Carbon Dioxide (22-30) mmol/L BUN (9-20) mg/dL Glucose (74-99) mg/dL POC Glucose (mg/dL) 133 H 124 H 120 H (75-99) mg/dL Total Protein (6.3-8.2) g/dL Albumin (3.5-5.0) g/dL 05/26/20 05/26/20 05/26/20 Range/Units 02:03 04:00 04:00 WBC 16.9 H (3.8-10.6) k/uL RBC 3.10 L (4.30-5.90) m/uL Hgb 9.2 L (13.0-17.5) gm/dL Hct 28.0 L (39.0-53.0) % Plt Count 111 L (150-450) k/uL Neutrophils # 14.7 H (1.3-7.7) k/uL Sodium 133 L (137-145) mmol/L Chloride 108 H (98-107) mmol/L Carbon Dioxide 21 L (22-30) mmol/L BUN 28 H (9-20) mg/dL Glucose 113 H (74-99) mg/dL POC Glucose (mg/dL) 116 H (75-99) mg/dL Total Protein 5.3 L (6.3-8.2) g/dL Albumin 3.3 L (3.5-5.0) g/dL 05/26/20 05/26/20 05/26/20 Range/Units 04:05 06:21 08:35 WBC (3.8-10.6) k/uL RBC (4.30-5.90) m/uL Hgb (13.0-17.5) gm/dL Hct (39.0-53.0) % Plt Count (150-450) k/uL Neutrophils # (1.3-7.7) k/uL Sodium (137-145) mmol/L Chloride (98-107) mmol/L Carbon Dioxide (22-30) mmol/L BUN (9-20) mg/dL Glucose (74-99) mg/dL POC Glucose (mg/dL) 119 H 124 H 181 H (75-99) mg/dL Total Protein (6.3-8.2) g/dL Albumin (3.5-5.0) g/dL 05/26/20 05/26/20 Range/Units 10:01 11:45 WBC (3.8-10.6) k/uL RBC (4.30-5.90) m/uL Hgb (13.0-17.5) gm/dL Hct (39.0-53.0) % Plt Count (150-450) k/uL Neutrophils # (1.3-7.7) k/uL Sodium (137-145) mmol/L Chloride (98-107) mmol/L Carbon Dioxide (22-30) mmol/L BUN (9-20) mg/dL Glucose (74-99) mg/dL POC Glucose (mg/dL) 149 H 130 H (75-99) mg/dL Total Protein (6.3-8.2) g/dL Albumin (3.5-5.0) g/dL Assessment and Plan (1) Status post aorto-coronary artery bypass graft Current Visit: Yes Status: Acute Code(s): Z95.1 - PRESENCE OF AORTOCORONARY BYPASS GRAFT SNOMED Code(s): 886440402 (2) NSTEMI (non-ST elevated myocardial infarction) Current Visit: No Status: Acute Code(s): I21.4 - NON-ST ELEVATION (NSTEMI) MYOCARDIAL INFARCTION SNOMED Code(s): 67901223 (3) Paroxysmal atrial fibrillation Current Visit: Yes Status: Acute Code(s): I48.0 - PAROXYSMAL ATRIAL FIBRILLATION SNOMED Code(s): 214801047 (4) History of peripheral vascular disease Current Visit: Yes Status: Acute Code(s): Z86.79 - PERSONAL HISTORY OF OTHER DISEASES OF THE CIRCULATORY SYSTEM SNOMED Code(s): 267428412 (5) History of cardiomyopathy Current Visit: Yes Status: Acute Code(s): Z86.79 - PERSONAL HISTORY OF OTHER DISEASES OF THE CIRCULATORY SYSTEM SNOMED Code(s): 918911957413796 Plan: Continue current medical therapy. Continue bronchodilators and incentive spirometry. Increase activity
[2020-05-26 16:50] LABS: Glucose,Whole Blood 115 mg/dL (75-99)
[2020-05-26] MEDS: HYDROcodone/APAP 7.5-325MG 1 EACH TAB PO PRN ×2 (18:46→23:27)
[2020-05-26 19:53] LABS: Glucose,Whole Blood 129 mg/dL (75-99)
[2020-05-26] MEDS: SENNOSIDES-DOCUSATE SODIUM 1 EACH TAB PO SCH (19:59)
--- NOTE | 2020-05-26 20:12 | P.PN ---
Progress Note - Text Progress Note Date: 05/26/20 - Chief Complaint CABG - History of Present Illness Consultation: This is a pleasant 64-year-old patient whose PCP is Dr. Rosalino Mcallister. Chronic stable medical conditions include coronary artery disease, left arm weakness from prior stroke, CHF, [that is no left ventricular thrombus on no prior KASSIE], diverticulosis. Underwent four-vessel coronary bypass Today-sitting up. Comfortable. Sinus rhythm. One chest tube. Did walk in the hallway. Oral intake fair. Clemens catheter discontinued. Review of systems: Was done for constitutional, cardiovascular, GI, pulmonary. relevant finding as above Active Medications Acetaminophen (Acetaminophen Tab 500 Mg Tab) 1,000 mg PO Q6HR PRN PRN Reason: Fever and/ or MILD Pain Last Admin: 05/26/20 19:58 Dose: 1,000 mg Documented by: Hydrocodone Bitart/Acetaminophen (Hydrocodone/Apap 7.5-325mg 1 Each Tab) 1 each PO Q4H PRN PRN Reason: Pain Last Admin: 05/26/20 10:32 Dose: 1 each Documented by: Hydrocodone Bitart/Acetaminophen (Hydrocodone/Apap 7.5-325mg 1 Each Tab) 2 each PO Q4H PRN PRN Reason: Pain Last Admin: 05/26/20 18:46 Dose: 2 each Documented by: Albuterol/Ipratropium (Ipratropium-Albuterol 3 Ml Neb) 3 ml INHALATION RT-Q2H PRN PRN Reason: Shortness Of Breath Or Wheezing Albuterol/Ipratropium (Ipratropium-Albuterol 3 Ml Neb) 3 ml INHALATION RT-QID [facility] Last Admin: 05/26/20 15:12 Dose: 3 ml Documented by: Amlodipine Besylate (Amlodipine 5 Mg Tab) 5 mg PO DAILY [facility] Last Admin: 05/26/20 08:29 Dose: 5 mg Documented by: Aspirin (Aspirin 325 Mg Tab) 325 mg PO DAILY [facility] Last Admin: 05/26/20 08:29 Dose: 325 mg Documented by: Atorvastatin Calcium (Atorvastatin 40 Mg Tab) 40 mg PO DAILY [facility] Last Admin: 05/26/20 08:29 Dose: 40 mg Documented by: Benzocaine/Menthol (Benzocaine/Menthol Lozeng 1 Each Lozenge) 1 each MUCOUS MEM Q2H PRN PRN Reason: Sore Throat Bisacodyl (Bisacodyl 10 Mg Supp) 10 mg RECTAL DAILY PRN PRN Reason: Constipation Clopidogrel Bisulfate (Clopidogrel 75 Mg Tab) 75 mg PO DAILY [facility] Last Admin: 05/26/20 08:29 Dose: 75 mg Documented by: Heparin Sodium (Porcine) (Heparin Sodium,Porcine 5,000 Unit/Ml 1 Ml Vial) 5,000 unit SQ Q8HR [facility] Last Admin: 05/26/20 18:46 Dose: 5,000 unit Documented by: Amiodarone HCl 150 mg/ (Dextrose/Water) 103 mls @ 618 mls/hr IV .Q10M PRN; Protocol PRN Reason: A.FIB/FLUTTER Amiodarone HCl 360 mg/ (Dextrose/Water) 200 mls @ 33.333 mls/hr IV .Q6H PRN; P rotocol PRN Reason: A.FIB/FLUTTER Amiodarone HCl 300 mg/ (Dextrose/Water) 250 mls @ 25 mls/hr IV .Q10H PRN; Protocol PRN Reason: A.FIB/FLUTTER Sodium Chloride (Saline 0.9%) 1,000 mls @ 20 mls/hr IV .Q24H [facility] Last Admin: 05/26/20 10:05 Dose: 20 mls/hr Documented by: Insulin Aspart (Insulin Aspart (Novolog) 100 Unit/Ml Vial) 0 unit SQ ACHS [facility]; Protocol Last Admin: 05/26/20 19:53 Dose: Not Given Documented by: Lisinopril (Lisinopril 20 Mg Tab) 20 mg PO DAILY@1200 [facility] Last Admin: 05/26/20 13:41 Dose: Not Given Documented by: Magnesium Hydroxide (Magnesium Hydroxide 2,400 Mg/10 Ml Cup) 2,400 mg PO BID PRN PRN Reason: Constipation Metoclopramide HCl (Metoclopramide 5 Mg/Ml 2 Ml Vial) 10 mg IVP Q4H PRN PRN Reason: Nausea And Vomiting Metoprolol Tartrate (Metoprolol Tartrate 25 Mg Tab) 25 mg PO BID [facility] Last Admin: 05/26/20 19:59 Dose: 25 mg Documented by: Miscellaneous Information (Potassium Replacement Protocol 1 Each Misc) 1 each MISCELLANE DAILY PRN; Protocol PRN Reason: Per Protocol Miscellaneous Information (Magnesium Replacement Protocol 1 Each Misc) 1 each MISCELLANE DAILY PRN; Protocol PRN Reason: Per Protocol Miscellaneous Information (Phosphorus Replacement Protoco 1 Each Misc) 1 each MISCELLANE DAILY PRN; Protocol PRN Reason: Per Protocol Ondansetron HCl (Ondansetron 4 Mg/2 Ml Vial) 4 mg IVP Q6HR PRN PRN Reason: Nausea And Vomiting Pantoprazole Sodium (Pantoprazole 40 Mg Tablet) 40 mg PO AC-BRKFST [facility] Last Admin: 05/26/20 07:08 Dose: 40 mg Documented by: Senna/Docusate Sodium (Sennosides-Docusate Sodium 1 Each Tab) 2 each PO HS [facility] Last Admin: 05/26/20 19:59 Dose: 2 each Documented by: Sodium Chloride (Sodium Chloride 0.9% Flush 10 Ml Syringe) 10 ml IV BID [facility] Last Admin: 05/26/20 20:00 Dose: 10 ml Documented by: Physical examination: VITAL SIGNS: 97.7, 80, 10, 113/47, 92% with nasal cannula GENERAL: sitting up in a chair, awake EYES: [Pupils equal. Conjunctiva pale HEENT: External appearance of nose and ears normal, oral cavity grossly normal. NECK: JVD unable to assess; masses not palpable. HEART: First and second heart sounds are normal; mild edema. LUNGS: Respiratory rate increased decreased breath sounds. ABDOMEN: Soft, nontender, liver spleen not palpable, no masses palpable. PSYCH: Alert and oriented x3; mood and affect normal. INVESTIGATIONS, reviewed in the clinical context: White count sitting 0.9 hemoglobin 9.2 platelets 111 potassium 4.3 creatinine 1.04 Previous testing White count 14.8 hemoglobin 10.2 platelets 117 potassium 4.4 creatinine 0.89 Preoperative labs: White count 10.1 hemoglobin 14.5 platelets 163 COVID 19 P/Cr-not detected Chest x-ray showing-atelectasis chest tubes Assessment: -CABG, 4 vessels -Coronary artery disease -Chronic diverticulosis -Chronic congestive congestive heart failure EF 20-25% -Acute postprocedure blood loss anemia, expected from surgery -Dilutional thrombocytopenia Plan: Continue current medication treatment plan. Care was discussed with the patient. Doing well. Increase activity use incentive spirometer. Thank you Dr. Gleason
[2020-05-27 04:22] LABS: Basophils # (A) 0.1 k/uL (0-0.2); Basophils % (A) 0 %; Eosinophils # (A) 0.3 k/uL (0-0.7); Eosinophils % (A) 2 %; HCT 25.8 % (39.0-53.0); HGB 8.8 gm/dL (13.0-17.5); Lymphocytes # (A) 1.4 k/uL (1.0-4.8); Lymphocytes % (A) 10 %; MCHC 34.1 g/dL (31.0-37.0); MCV 91.1 fL (80.0-100.0); Monocytes # (A) 0.7 k/uL (0-1.0); Monocytes % (A) 5 %; Neutrophils # (A) 11.5 k/uL (1.3-7.7); Neutrophils % (A) 81 %; Platelet Count 106 k/uL (150-450); RBC 2.83 m/uL (4.30-5.90); WBC 14.2 k/uL (3.8-10.6)
[2020-05-27 04:32] LABS: Calcium 8.2 mg/dL (8.4-10.2); Magnesium 2.2 mg/dL (1.6-2.3); Potassium 4.3 mmol/L (3.5-5.1); Total Bilirubin 0.6 mg/dL (0.2-1.3); Total Protein 5.1 g/dL (6.3-8.2)
[2020-05-27] MEDS: HYDROcodone/APAP 7.5-325MG 1 EACH TAB PO PRN ×3 (05:00→17:27)
[2020-05-27 07:09] LABS: Glucose,Whole Blood 119 mg/dL (75-99)
[2020-05-27] MEDS: PANTOPRAZOLE 40 MG TABLET PO SCH (07:14)
[2020-05-27] MEDS: INSULIN ASPART (NovoLOG) 100 UNIT/ML VIAL SQ SCH ×4 (07:14→20:45)
[2020-05-27] MEDS: IPRATROPIUM-ALBUTEROL 3 ML NEB INHALATION SCH ×4 (08:05→20:15)
--- NOTE | 2020-05-27 08:17 | XR ---
EXAMINATION TYPE: XR chest 1V portable DATE OF EXAM: 05/27/2020 Comparison: 05/26/2020 Clinical History: 64 year-old male post cardiac surgery Findings: Median sternotomy wires are present with post-CABG clips in the mediastinum. Left-sided chest tube re cristofer in place. Right IJ sheath also present. Small left effusion with retrocardiac opacity remains. Patchy right basilar opacity also remains. Heart mildly enlarged. Impression: Similar patchy bibasilar opacities, likely postoperative atelectasis. Small left effusion. Left-sided chest tube in place.
[2020-05-27] MEDS: ATORVASTATIN 40 MG TAB PO SCH (08:53)
[2020-05-27] MEDS: ASPIRIN 325 MG TAB PO SCH (08:53)
[2020-05-27] MEDS: METOPROLOL TARTRATE 25 MG TAB PO SCH ×2 (08:53→20:44)
[2020-05-27] MEDS: HEPARIN SODIUM,PORCINE 5,000 UNIT/ML 1 ML VIAL SQ SCH ×2 (08:53→17:28)
[2020-05-27] MEDS: CLOPIDOGREL 75 MG TAB PO SCH (08:53)
[2020-05-27] MEDS: amLODIPine 5 MG TAB PO SCH (08:53)
--- NOTE | 2020-05-27 09:19 | P.PN ---
Subjective Progress Note Date: 05/27/20 Principal diagnosis: Multivessel coronary artery disease. Previous medical history of recent non- STEMI, systolic heart failure/ischemic cardiomyopathy with most recent EF 35% improved from 20-25%, left ventricular thrombus, moderate mitral valve regurgitation, recent ischemic stroke, paroxysmal atrial fibrillation, hypertension, hyperlipidemia, chronic and ongoing tobacco dependence with FEV1 111% of predicted, peripheral arterial disease status post aortobifemoral bypass in 2004. POD #3 off-pump coronary artery bypass graft 4, left internal mammary artery to the left anterior descending artery, reverse saphenous vein graft from the aorta to the right coronary artery, radial artery to the intermediate coronary artery, and reverse saphenous vein graft from the aorta to the first diagonal branch. Endovascular left greater saphenous vein harvest from the ankle to the thigh. Left radial artery harvest. Occlusion of the left atrial appendage with a 35 mm AtriCure clip Postoperative acute blood loss anemia and thrombocytopenia, expected, dilutional Patient's currently sitting up in a recliner in the intensive care unit in no acute distress. States postoperative chest pain and pain controlled with current medication regimen, denies shortness of breath. Remains in normal sinus rhythm and hemodynamically stable. Right internal jugular Cordis, right radial arterial line, left pleural chest tubes all remaining present. No new concerns. Objective - Vital Signs Vital signs: Vital Signs Temp 97.6 F 05/27/20 08:00 Pulse 93 05/27/20 08:18 Resp 17 05/27/20 08:00 BP 108/59 05/27/20 07:00 Pulse Ox 97 05/27/20 08:00 Intake & Output 05/26/20 05/27/20 05/27/20 18:59 06:59 18:59 Intake Total 312 792 52 Output Total 936 462 60 Balance -624 330 -8 Weight 82.1 kg Intake: IV 312 312 52 Pressure bags 72 72 12 Sodium Chloride 0.9% 1, 240 240 40 000 ml @ 20 mls/hr IV . Q24H [facility] Rx#:[id number] Oral 480 Output: Chest Tube Drainage 321 212 60 Left Lateral Chest 281 212 60 Left Pleural/Mediastinal 40 Drainage 20 Left Arm 20 Urine 595 250 Other: Voiding Method Indwelling Catheter Indwelling Catheter ABP, PAP, CO, CI - Last Documented Arterial Blood Pressure 115/48 Pulmonary Artery Pressure 24/9 Cardiac Output 4.5 Cardiac Index 2.4 - Constitutional General appearance: Present: cooperative, no acute distress - Respiratory Details: Lungs sounds diminished bilaterally. Respirations even, nonlabored. Currently on 5 L nasal cannula with oxygen saturation 95%. Able to achieve 750 mL on his incentive spirometry. Weak cough. Left pleural chest tube present to continuous wall suction, no air leak present. 210 mL serous drainage overnight, 400 mL in the last 24 hours. - Cardiovascular Details: S1, S2 present. Regular rate and rhythm, sinus rhythm on telemetry. Sternum stable. Palpable peripheral pulses bilaterally. Trace generalized edema present. No calf pain or tenderness noted. Right internal jugular Cordis, right radial arterial line present. Heart hugger in place with patient demons trating appropriate use. Antiembolism stockings, SCDs present. - Gastrointestinal Gastrointestinal Comment(s): Abdomen soft, nontender, nondistended. Active bowel sounds present 4 quadrants. Tolerating diet. Positive flatus, negative bowel movement. - Genitourinary Genitourinary Comment(s): Clemens discontinued yesterday, patient has voided clear, yellow urine - Integumentary Integumentary Comment(s): Skin is warm and dry with evidence of good perfusion. Anterior chest incision well approximated and covered with dry intact dressing. Left radial artery harvest site well approximated, skin is warm and pink, good cap refill, patient able to wiggle all fingers and chief controller center appropriately, denies any numbness. Left lower extremity EVH site well approximated - Neurologic Neurologic: Present: CNII-XII intact - Musculoskeletal Musculoskeletal Comment(s): Residual left-sided weakness from stroke Musculoskeletal: Present: gait normal, left sided weakness - Psychiatric Psychiatric: Present: A&O x's 3, appropriate affect - Allied health notes Allied health notes reviewed: nursing - Labs CBC & Chem 7: 05/27/20 04:05 05/27/20 04:05 Labs: Abnormal Lab Results - Last 24 Hours (Table) 05/26/20 05/26/20 05/26/20 Range/Units 10:01 11:45 16:48 WBC (3.8-10.6) k/uL RBC (4.30-5.90) m/uL Hgb (13.0-17.5) gm/dL Hct (39.0-53.0) % Plt Count (150-450) k/uL Neutrophils # (1.3-7.7) k/uL Sodium (137-145) mmol/L Chloride (98-107) mmol/L Carbon Dioxide (22-30) mmol/L BUN (9-20) mg/dL Creatinine (0.66-1.25) mg/dL Glucose (74-99) mg/dL POC Glucose (mg/dL) 149 H 130 H 115 H (75-99) mg/dL Calcium (8.4-10.2) mg/dL Total Protein (6.3-8.2) g/dL Albumin (3.5-5.0) g/dL 05/26/20 05/27/20 05/27/20 Range/Units 19:52 04:05 04:05 WBC 14.2 H (3.8-10.6) k/uL RBC 2.83 L (4.30-5.90) m/uL Hgb 8.8 L (13.0-17.5) gm/dL Hct 25.8 L (39.0-53.0) % Plt Count 106 L (150-450) k/uL Neutrophils # 11.5 H (1.3-7.7) k/uL Sodium 132 L (137-145) mmol/L Chloride 108 H (98-107) mmol/L Carbon Dioxide 20 L (22-30) mmol/L BUN 37 H (9-20) mg/dL Creatinine 1.29 H (0.66-1.25) mg/dL Glucose 105 H (74-99) mg/dL POC Glucose (mg/dL) 129 H (75-99) mg/dL Calcium 8.2 L (8.4-10.2) mg/dL Total Protein 5.1 L (6.3-8.2) g/dL Albumin 3.0 L (3.5-5.0) g/dL 05/27/20 Range/Units 07:08 WBC (3.8-10.6) k/uL RBC (4.30-5.90) m/uL Hgb (13.0-17.5) gm/dL Hct (39.0-53.0) % Plt Count (150-450) k/uL Neutrophils # (1.3-7.7) k/uL Sodium (137-145) mmol/L Chloride (98-107) mmol/L Carbon Dioxide (22-30) mmol/L BUN (9-20) mg/dL Creatinine (0.66-1.25) mg/dL Glucose (74-99) mg/dL POC Glucose (mg/dL) 119 H (75-99) mg/dL Calcium (8.4-10.2) mg/dL Total Protein (6.3-8.2) g/dL Albumin (3.5-5.0) g/dL - Imaging and Cardiology Chest x-ray: report reviewed, image reviewed Assessment and Plan Assessment: 1. Multivessel coronary artery disease, status post four-vessel off-pump CABG 2. History of recent non-STEMI 3. Systolic heart failure/ischemic cardiomyopathy with most recent EF 35% improved from 20-25%, left ventricular thrombus, moderate mitral valve regurgitation 4. Recent ischemic stroke with some residual left-sided weakness 5. Paroxysmal atrial fibrillation, on Eliquis for anticoagulation, currently in sinus, status post left atrial appendage ligation with 35 mm AtriCure clip 6. Hypertension 7. Hyperlipidemia, cholesterol 243, LDL 185 8. Chronic and ongoing tobacco dependence with FEV1 111% of predicted post bronchodilator 9. Peripheral arterial disease status post aortobifemoral bypass in 2004. 10. Postoperative acute blood loss anemia and from sit opinion, expected Plan: 1. Continue aspirin, statin, Plavix, beta mona therapy. Will increase beta mona as tolerated. 2. Wean O2 as tolerated. Bronchodilators per pulmonology. Encourage incentive spirometry 10 times every hour while awake 3. Increase activity, ambulate as tolerated. PT/OT/cardiac rehab consulted 4. Continue CCB for radial artery spasm prophylaxis. Do not discontinue CCB without discussing with cardiac surgery 5. Discontinue Cordis, continue arterial line 6. Will monitor daily labs and x-rays. Electrolyte replacement per protocol. No transfusion necessary at this time. No Lasix today 7. GI/DVT prophylaxis 8. Insulin management per primary care service 9. Pain control with current medication regimen 10. Will leave left pleural chest tubes for another 24 hours due to output 11. Strict accurate intake and output. Daily weights. 12. More recommendations to follow based on patient's progress Seen and examined and agree with above Time with Patient: Greater than 30
[2020-05-27] MEDS ORDERED: lisinopriL 10 MG TAB PO SCH (12:00)
[2020-05-27] MEDS: SODIUM CHLORIDE 0.9% 1,000 ML IV SCH (12:06)
[2020-05-27 12:13] LABS: Glucose,Whole Blood 113 mg/dL (75-99)
--- NOTE | 2020-05-27 12:40 | P.PN ---
Subjective Progress Note Date: 05/27/20 Principal diagnosis: Status post CABG, postoperative day #3 This is a 64-year-old tall white male patient who was hospitalized in March 2020 when he presented to the emergency department with complaints of severe shortness of breath, was diagnosed with non-ST elevated myocardial infarction, and his cardiac workup showed the multivessel coronary artery disease. During the same admission patient experienced acute ischemic stroke involving his right MCA. Transesophageal echocardiogram revealed severely impaired left ventricular systolic function with an EF of 20-25%, and intracardiac thrombus. Repeat transesophageal echocardiogram in April 2020 showed improvement in left ventricular systolic function and resolution of the intracardiac thrombus. Patient was referred to CT surgery for possibility of coronary artery bypass grafting. Today on 05/24/2020 patient underwent off-pump CABG 4 with endovascular vein harvest and the radial harvest and occlusion of the left atrial appendage. Patient is seen in the intensive care unit following his surgery he is sedated and intubated on mechanical ventilator, with assist- control mode of ventilation with a rate of 12, tidal volumes 500, FiO2 is 50% and PEEP of 5. His postoperative blood gases showed pO2 of 369, pCO2 40, pH of 7.3, is was on FiO2 of 100%, and it has since been dropped to 50%. Hemodynamically stable, maintenance IV drips of 0.9 normal saline at a rate of 50 ML per hour, Cardizem is a 5 mg per hour, nitroglycerin is at 5 mics per kilo per minute, and improving is at 20 mics per kilo per minute. Patient is in sinus mechanism with a bradycardic rate of 51 BPM, PA pressure 35/20, cardiac output is 4.2, cardiac index is 2.2. Mediastinal and left pleural chest tube is why connected together, with a total of 180 cc of sanguinous output in the Pleur-evac which is connected to wall suction, with no evidence of air leak. Postoperative chest x-ray shows left lower lobe infiltrate likely related to atelectasis, ET tube, PA catheter in appropriate positions. On 05/25/2020 patient seen in follow-up in the intensive care unit. He was successfully extubated at 1800 yesterday on postoperative day 0 on 05/24/2020. Today is postoperative day 1, status post four-vessel coronary artery bypass g rafting, with the left radial artery harvest, in the left leg endoscopic vein harvest and exclusion of the left atrial appendage. He is doing very well, hemodynamically stable, in sinus mechanism, no bradycardia, no tachycardia, he is on Cleviprex drip at 2 mg per hour, blood pressures 129/44, insulin is at 1- 1/2 units per hour, 3 L of oxygen pulse ox 94-97%. Lung sounds are clear, his incentive spirometry is around 800 mL, his pain is reasonably controlled, his left pleural and mediastinal chest tube throughout around 1300 of thin serosanguineous output in last 24 hours. His urine output is in order of 40-70 ML per hour, his last cardiac output was 4.6 and cardiac index was 2.4, with PA pressure of 24/9, and CVP of 2 as of 05 09 this morning, patient has been hemodynamically stable, and PA catheter has been discontinued this morning. Today's chest x-ray shows small atelectasis in the right base, improving left lower lobe infiltrate. His blood work has been reviewed showing white blood cell count of 14.8, hemoglobin of 10.2, platelet count is 117, sodium is 135, potassium 4.4, chloride is 110, CO2 is 19, BUN is 22, creatinine 0.89 The patient is seen today 05/26/2020 in follow-up in the intensive care unit. He is awake and alert in no acute distress. This is postoperative day #2 of his four-vessel coronary artery bypass surgery. He is doing quite well. He's been up ambulating with assistance. He is maintaining O2 saturations in the 90s on 4 L/m per nasal cannula. He's been afebrile. White count 16.9. Hemoglobin 9.2. Platelets 111,000. Sodium 133. Bicarb 21. Creatinine 1.04. 0.9 normal saline at KVO. He remains on bronchodilators. He is working well with the incentive spirometer. Chest x-ray reveals bilateral infiltrates/atelectasis with small effusions. Stable compared to previous. Reevaluated today on 05/27/20, ration remains in the ICU, sitting up in a recliner, in no acute distress. Patient has minimal postoperative pain, denies shortness of breath, denies any fever, no chills, no nausea no vomiting no abdominal pain. Patient is hemodynamically stable, not requiring any pressors. Not requiring any inotropes. CBC is relatively normal hemoglobin is 8.8 WBC count is 14.2 electrolytes are normal BUN is 37 creatinine is 1.29, slightly increased compared to yesterday. Objective - Vital Signs Vital signs: Vital Signs Temp 98.1 F 05/27/20 12:00 Pulse 84 05/27/20 12:09 Resp 12 05/27/20 12:00 BP 92/54 05/27/20 12:00 Pulse Ox 92 L 05/27/20 12:00 Intake & Output 05/26/20 05/27/20 05/27/20 18:59 06:59 18:59 Intake Total 312 792 144 Output Total 936 462 400 Balance -624 330 -256 Weight 82.1 kg Intake: IV 312 312 144 Pressure bags 72 72 24 Sodium Chloride 0.9% 1, 240 240 120 000 ml @ 20 mls/hr IV . Q24H [facility] Rx#:[id number] Oral 480 Output: Chest Tube Drainage 321 212 100 Left Lateral Chest 281 212 100 Left Pleural/Mediastinal 40 Drainage 20 Left Arm 20 Urine 595 250 300 Other: Voiding Method Indwelling Catheter Indwelling Catheter Indwelling Catheter ABP, PAP, CO, CI - Last Documented Arterial Blood Pressure 120/59 Pulmonary Artery Pressure 24/9 Cardiac Output 4.5 Cardiac Index 2.4 - Exam Physical Exam: Revealed a 64-year-old white male, extremely pleasant, in no distress. Remains on 5 L nasal cannula. Head: Atraumatic, normocephalic. HEENT:[Neck is supple.] [No neck masses.] [No thyromegaly.] [No JVD.] Right IJ Cordis is noted in place. Chest: [Diminished breath sounds., minimal crackles at the bases., no rhonchi, no wheezes.]Able to achieve 750 mL on his incentive spirometry. Weak cough. Left pleural chest tube present to continuous wall suction, no air leak present. 210 mL serous drainage overnight, 400 mL in the last 24 hours. Cardiac Exam: [Normal S1 and S2, no S3 gallop, no murmur.] Abdomen: [Soft, nontender, no megaly, no rebound, no guarding, normal bowel sounds.] Extremities: [No clubbing, no edema, no cyanosis.] Antiembolism stockings, SCDs present. Neurological Exam: [No focal neurologic deficit.] Alert and oriented 3. Psychiatric: Normal mood affect and normal mental status exam - Labs CBC & Chem 7: 05/27/20 04:05 05/27/20 04:05 Labs: Abnormal Lab Results - Last 24 Hours (Table) 05/26/20 05/26/20 05/27/20 Range/Units 16:48 19:52 04:05 WBC 14.2 H (3.8-10.6) k/uL RBC 2.83 L (4.30-5.90) m/uL Hgb 8.8 L (13.0-17.5) gm/dL Hct 25.8 L (39.0-53.0) % Plt Count 106 L (150-450) k/uL Neutrophils # 11.5 H (1.3-7.7) k/uL Sodium (137-145) mmol/L Chloride (98-107) mmol/L Carbon Dioxide (22-30) mmol/L BUN (9-20) mg/dL Creatinine (0.66-1.25) mg/dL Glucose (74-99) mg/dL POC Glucose (mg/dL) 115 H 129 H (75-99) mg/dL Calcium (8.4-10.2) mg/dL Total Protein (6.3-8.2) g/dL Albumin (3.5-5.0) g/dL 05/27/20 05/27/20 05/27/20 Range/Units 04:05 07:08 12:11 WBC (3.8-10.6) k/uL RBC (4.30-5.90) m/uL Hgb (13.0-17.5) gm/dL Hct (39.0-53.0) % Plt Count (150-450) k/uL Neutrophils # (1.3-7.7) k/uL Sodium 132 L (137-145) mmol/L Chloride 108 H (98-107) mmol/L Carbon Dioxide 20 L (22-30) mmol/L BUN 37 H (9-20) mg/dL Creatinine 1.29 H (0.66-1.25) mg/dL Glucose 105 H (74-99) mg/dL POC Glucose (mg/dL) 119 H 113 H (75-99) mg/dL Calcium 8.2 L (8.4-10.2) mg/dL Total Protein 5.1 L (6.3-8.2) g/dL Albumin 3.0 L (3.5-5.0) g/dL Assessment and Plan Assessment: Impression: Status post CABG, postoperative day #3. History of non-ST elevation myocardial infarction in March of 2020. Severe ischemic cardiomyopathy and LV dysfunction with ejection fraction of 20- 25%. However improvement noted on recent KASSIE. Paroxysmal atrial fibrillation. History of right MCA CVA. Hypertension. Ongoing tobacco dependence. History of peripheral vessel occlusive disease and previous aortobifemoral bypass in 2004. Dyslipidemia. Acute kidney injury, etiology is not clear at this point yet Recommendation: Continue beta blockers Plavix statin and aspirin. Continue incentive spirometry. Increase activity as tolerated. Wean oxygen as tolerated. Continue to ambulate. Discontinue unnecessary catheters Continue bronchodilators. Continue to monitor output from the left pleural chest tube for the next 24 hours. Strict I's and O's, Monitor renal profile as the patient may have sustained a slight kidney injury. We'll follow closely. Time with Patient: Less than 30
--- NOTE | 2020-05-27 12:56 | P.PN ---
Subjective Progress Note Date: 05/27/20 This is a 64-year-old gentleman status postI to coronary bypass surgery. Postoperative day 2 Patient had four-vessel bypass surgery. Patient is feeling well. Doesn't seem to be in acute distress. His oxygen saturation are 90% on 4 L. Patient is afebrile. Hemoglobin is 9.2. Creatinine is 1.04. He is on bronchodilators. Maintaining sinus rhythm. No arrhythmias noted. Patient seemed to be stable. He is sitting up in the chair 05/27/2020: This patient is status post four-vessel bypass surgery. Patient seemed to be doing well. Sitting up in the chair. He still had a left chest tube. No arrhythmias noted. Hemodynamically stable. Continue current medical therapy. Incentive spirometry. Activity as tolerated Objective - Vital Signs Vital signs: Vital Signs Temp 98.1 F 05/27/20 12:00 Pulse 84 05/27/20 12:09 Resp 12 05/27/20 12:00 BP 92/54 05/27/20 12:00 Pulse Ox 92 L 05/27/20 12:00 Intake & Output 05/26/20 05/27/20 05/27/20 18:59 06:59 18:59 Intake Total 312 792 144 Output Total 936 462 400 Balance -624 330 -256 Weight 82.1 kg Intake: IV 312 312 144 Pressure bags 72 72 24 Sodium Chloride 0.9% 1, 240 240 120 000 ml @ 20 mls/hr IV . Q24H [facility] Rx#:[id number] Oral 480 Output: Chest Tube Drainage 321 212 100 Left Lateral Chest 281 212 100 Left Pleural/Mediastinal 40 Drainage 20 Left Arm 20 Urine 595 250 300 Other: Voiding Method Indwelling Catheter Indwelling Catheter Indwelling Catheter ABP, PAP, CO, CI - Last Documented Arterial Blood Pressure 120/59 Pulmonary Artery Pressure 24/9 Cardiac Output 4.5 Cardiac Index 2.4 - Exam GENERAL EXAM: Patient is alert and oriented and doesn't appear to be in any acute distress HEENT: Normocephalic. Normal reaction of pupils, equal size, normal range of extraocular motion. No erythema or exudates in the throat. NECK: No masses, no nuchal rigidity. CHEST: No chest wall deformity. LUNGS: No significant wheezing or rhonchi HEART: [S1 and S2 normal Pericardial rub heard ABDOMEN: No hepatosplenomegaly, normal bowel sounds, no guarding or rigidity. SKIN: No rashes CENTRAL NERVOUS SYSTEM: No focal deficits. EXTREMITIES: No cyanosis, clubbing or edema. - Labs CBC & Chem 7: 05/27/20 04:05 05/27/20 04:05 Labs: Abnormal Lab Results - Last 24 Hours (Table) 05/26/20 05/26/20 05/27/20 Range/Units 16:48 19:52 04:05 WBC 14.2 H (3.8-10.6) k/uL RBC 2.83 L (4.30-5.90) m/uL Hgb 8.8 L (13.0-17.5) gm/dL Hct 25.8 L (39.0-53.0) % Plt Count 106 L (150-450) k/uL Neutrophils # 11.5 H (1.3-7.7) k/uL Sodium (137-145) mmol/L Chloride (98-107) mmol/L Carbon Dioxide (22-30) mmol/L BUN (9-20) mg/dL Creatinine (0.66-1.25) mg/dL Glucose (74-99) mg/dL POC Glucose (mg/dL) 115 H 129 H (75-99) mg/dL Calcium (8.4-10.2) mg/dL Total Protein (6.3-8.2) g/dL Albumin (3.5-5.0) g/dL 05/27/20 05/27/20 05/27/20 Range/Units 04:05 07:08 12:11 WBC (3.8-10.6) k/uL RBC (4.30-5.90) m/uL Hgb (13.0-17.5) gm/dL Hct (39.0-53.0) % Plt Count (150-450) k/uL Neutrophils # (1.3-7.7) k/uL Sodium 132 L (137-145) mmol/L Chloride 108 H (98-107) mmol/L Carbon Dioxide 20 L (22-30) mmol/L BUN 37 H (9-20) mg/dL Creatinine 1.29 H (0.66-1.25) mg/dL Glucose 105 H (74-99) mg/dL POC Glucose (mg/dL) 119 H 113 H (75-99) mg/dL Calcium 8.2 L (8.4-10.2) mg/dL Total Protein 5.1 L (6.3-8.2) g/dL Albumin 3.0 L (3.5-5.0) g/dL Assessment and Plan (1) Status post aorto-coronary artery bypass graft Current Visit: Yes Status: Acute Code(s): Z95.1 - PRESENCE OF AORTOCORONARY BYPASS GRAFT SNOMED Code(s): 293679555 (2) NSTEMI (non-ST elevated myocardial infarction) Current Visit: No Status: Acute Code(s): I21.4 - NON-ST ELEVATION (NSTEMI) MYOCARDIAL INFARCTION SNOMED Code(s): 70599438 (3) Paroxysmal atrial fibrillation Current Visit: Yes Status: Acute Code(s): I48.0 - PAROXYSMAL ATRIAL FIBRILLATION SNOMED Code(s): 892235039 (4) History of peripheral vascular disease Current Visit: Yes Status: Acute Code(s): Z86.79 - PERSONAL HISTORY OF OTHER DISEASES OF THE CIRCULATORY SYSTEM SNOMED Code(s): 643093681 (5) History of cardiomyopathy Current Visit: Yes Status: Acute Code(s): Z86.79 - PERSONAL HISTORY OF OTHER DISEASES OF THE CIRCULATORY SYSTEM SNOMED Code(s): 728545752281307 Plan: Remained stable. Still has a left chest tube. Continue rest of the management
--- NOTE | 2020-05-27 14:34 | P.PN ---
Progress Note - Text Progress Note Date: 05/27/20 - Chief Complaint CABG Consultation: This is a pleasant 64-year-old patient whose PCP is Dr. Rosalino Mcallister. Chronic stable medical conditions include coronary artery disease, left arm weakness from prior stroke, CHF, [that is no left ventricular thrombus on no prior KASSIE], diverticulosis. Underwent four-vessel coronary bypass Today-sitting up in a chair. Feeling well. A bit tired. Didn't sleep well last night. Had breakfast. Chest tube is present. Breathing better. Review of systems: Was done for constitutional, cardiovascular, GI, pulmonary. relevant finding as above Active Medications Acetaminophen (Acetaminophen Tab 500 Mg Tab) 1,000 mg PO Q6HR PRN PRN Reason: Fever and/ or MILD Pain Last Admin: 05/26/20 19:58 Dose: 1,000 mg Documented by: Hydrocodone Bitart/Acetaminophen (Hydrocodone/Apap 7.5-325mg 1 Each Tab) 1 each PO Q4H PRN PRN Reason: Pain Last Admin: 05/26/20 10:32 Dose: 1 each Documented by: Hydrocodone Bitart/Acetaminophen (Hydrocodone/Apap 7.5-325mg 1 Each Tab) 2 each PO Q4H PRN PRN Reason: Pain Last Admin: 05/27/20 09:31 Dose: 2 each Documented by: Albuterol/Ipratropium (Ipratropium-Albuterol 3 Ml Neb) 3 ml INHALATION RT-Q2H PRN PRN Reason: Shortness Of Breath Or Wheezing Albuterol/Ipratropium (Ipratropium-Albuterol 3 Ml Neb) 3 ml INHALATION RT-QID [facility] Last Admin: 05/27/20 11:54 Dose: 3 ml Documented by: Amlodipine Besylate (Amlodipine 5 Mg Tab) 5 mg PO DAILY [facility] Last Admin: 05/27/20 08:53 Dose: 5 mg Documented by: Aspirin (Aspirin 325 Mg Tab) 325 mg PO DAILY [facility] Last Admin: 05/27/20 08:53 Dose: 325 mg Documented by: Atorvastatin Calcium (Atorvastatin 40 Mg Tab) 40 mg PO DAILY [facility] Last Admin: 05/27/20 08:53 Dose: 40 mg Documented by: Benzocaine/Menthol (Benzocaine/Menthol Lozeng 1 Each Lozenge) 1 each MUCOUS MEM Q2H PRN PRN Reason: Sore Throat Bisacodyl (Bisacodyl 10 Mg Supp) 10 mg RECTAL DAILY PRN PRN Reason: Constipation Clopidogrel Bisulfate (Clopidogrel 75 Mg Tab) 75 mg PO DAILY [facility] Last Admin: 05/27/20 08:53 Dose: 75 mg Documented by: Heparin Sodium (Porcine) (Heparin Sodium,Porcine 5,000 Unit/Ml 1 Ml Vial) 5,000 unit SQ Q8HR [facility] Last Admin: 05/27/20 08:53 Dose: 5,000 unit Documented by: Amiodarone HCl 150 mg/ (Dextrose/Water) 103 mls @ 618 mls/hr IV .Q10M PRN; Protocol PRN Reason: A.FIB/FLUTTER Amiodarone HCl 360 mg/ (Dextrose/Water) 200 mls @ 33.333 mls/hr IV .Q6H PRN; Protocol PRN Reason: A.FIB/FLUTTER Amiodarone HCl 300 mg/ (Dextrose/Water) 250 mls @ 25 mls/hr IV .Q10H PRN; Protocol PRN Reason: A.FIB/FLUTTER Insulin Aspart (Insulin Aspart (Novolog) 100 Unit/Ml Vial) 0 unit SQ ACHS [facility]; Protocol Last Admin: 05/27/20 13:53 Dose: Not Given Documented by: Magnesium Hydroxide (Magnesium Hydroxide 2,400 Mg/10 Ml Cup) 2,400 mg PO BID PRN PRN Reason: Constipation Last Admin: 05/27/20 08:53 Dose: 2,400 mg Documented by: Metoclopramide HCl (Metoclopramide 5 Mg/Ml 2 Ml Vial) 10 mg IVP Q4H PRN PRN Reason: Nausea And Vomiting Metoprolol Tartrate (Metoprolol Tartrate 25 Mg Tab) 25 mg PO BID [facility] Last Admin: 05/27/20 08:53 Dose: 25 mg Documented by: Miscellaneous Information (Potassium Replacement Protocol 1 Each Misc) 1 each MISCELLANE DAILY PRN; Protocol PRN Reason: Per Protocol Miscellaneous Information (Magnesium Replacement Protocol 1 Each Misc) 1 each MISCELLANE DAILY PRN; Protocol PRN Reason: Per Protocol Miscellaneous Information (Phosphorus Replacement Protoco 1 Each Misc) 1 each MISCELLANE DAILY PRN; Protocol PRN Reason: Per Protocol Ondansetron HCl (Ondansetron 4 Mg/2 Ml Vial) 4 mg IVP Q6HR PRN PRN Reason: Nausea And Vomiting Pantoprazole Sodium (Pantoprazole 40 Mg Tablet) 40 mg PO AC-BRKFST [facility] Last Admin: 05/27/20 07:14 Dose: 40 mg Documented by: Senna/Docusate Sodium (Sennosides-Docusate Sodium 1 Each Tab) 2 each PO HS [facility] Last Admin: 05/26/20 19:59 Dose: 2 each Documented by: Sodium Chloride (Sodium Chloride 0.9% Flush 10 Ml Syringe) 10 ml IV BID [facility] Last Admin: 05/27/20 08:36 Dose: Not Given Documented by: Physical examination: VITAL SIGNS:98.1, 78, 12, 92/54, 92% on nasal cannula GENERAL: sitting up in a chair, awake EYES: [Pupils equal. Conjunctiva pale HEENT: External appearance of nose and ears normal, oral cavity grossly normal. NECK: JVD unable to assess; masses not palpable. HEART: First and second heart sounds are normal; mild edema. LUNGS: Respiratory rate increased decreased breath sounds. ABDOMEN: Soft, nontender, liver spleen not palpable, no masses palpable. PSYCH: Alert and oriented x3; mood and affect normal. INVESTIGATIONS, reviewed in the clinical context: White count 14.2 hemoglobin 8.8 platelets 106 potassium 4.3 bun 37 creatinine 1.29 Previous testing White count 14.8 hemoglobin 10.2 platelets 117 potassium 4.4 creatinine 0.89 Preoperative labs: White count 10.1 hemoglobin 14.5 platelets 163 COVID 19 P/Cr-not detected Chest x-ray showing-atelectasis chest tubes Assessment: -CABG, 4 vessels -Coronary artery disease -Chronic diverticulosis -Chronic congestive congestive heart failure EF 20-25% -Acute postprocedure blood loss anemia, expected from surgery -Dilutional thrombocytopenia -Acute kidney injury likely prerenal from diuresis. Creatinine is gone from 0.8-1.29 -Mild hyponatremia -Leukocytosis likely reactive. No clinical evidence of infection Plan: continue current medication due to plan. Following stress closely. Care was discussed with the patient. Use incentive spirometry. Thank you Dr. Gleason
[2020-05-27 17:00] LABS: Glucose,Whole Blood 125 mg/dL (75-99)
[2020-05-27 20:33] LABS: Glucose,Whole Blood 117 mg/dL (75-99)
[2020-05-27] MEDS: SENNOSIDES-DOCUSATE SODIUM 1 EACH TAB PO SCH (20:45)
[2020-05-28] MEDS: HEPARIN SODIUM,PORCINE 5,000 UNIT/ML 1 ML VIAL SQ SCH ×3 (00:39→16:53)
[2020-05-28 04:21] LABS: HCT 26.4 % (39.0-53.0); HGB 8.9 gm/dL (13.0-17.5); MCH 31.3 pg (25.0-35.0); MCHC 33.7 g/dL (31.0-37.0); MCV 92.9 fL (80.0-100.0); Mean Platelet Volume 8.8; Platelet Count 138 k/uL (150-450); RBC 2.84 m/uL (4.30-5.90); RDW 15.2 % (11.5-15.5); WBC 11.7 k/uL (3.8-10.6)
[2020-05-28 04:35] LABS: African American GFR (CKD) >90 (>60 ml/min/1.73 sqM); Anion Gap 4 mmol/L; Blood Urea Nitrogen 32 mg/dL (9-20); Calcium 8.3 mg/dL (8.4-10.2); Carbon Dioxide 19 mmol/L (22-30); Chloride 106 mmol/L (98-107); Glucose 103 mg/dL (74-99); Non-African American GFR(CKD) 84 (>60 ml/min/1.73 sqM); Potassium 4.6 mmol/L (3.5-5.1); Sodium 129 mmol/L (137-145)
[2020-05-28] MEDS: IPRATROPIUM-ALBUTEROL 3 ML NEB INHALATION SCH ×4 (07:29→20:23)
--- NOTE | 2020-05-28 07:42 | XR ---
EXAMINATION TYPE: XR chest 1V portable DATE OF EXAM: 05/28/2020 Comparison: 05/27/2020 Clinical History: 64-year-old male post cardiac surgery Findings: Median sternotomy wires are present. Post-CABG clips in the mediastinum. Heart remains borderline enl arged. Left chest tube remains in place. Continued patchy bibasilar opacities. Upper and mid lungs re main clear. Impression: Continued patchy bibasilar opacities, probably areas of atelectasis. Clinically correlate to exclude infiltrates.
[2020-05-28 08:18] LABS: Glucose,Whole Blood 109 mg/dL (75-99)
[2020-05-28] MEDS ORDERED: FUROSEMIDE 10 MG/ML 2 ML VIAL IV ONE (08:20)
--- NOTE | 2020-05-28 08:30 | P.PN ---
Subjective Progress Note Date: 05/28/20 Principal diagnosis: Multivessel coronary artery disease. Previous medical history of recent non- STEMI, systolic heart failure/ischemic cardiomyopathy with most recent EF 35% improved from 20-25%, left ventricular thrombus, moderate mitral valve regurgitation, recent ischemic stroke, paroxysmal atrial fibrillation, hypertension, hyperlipidemia, chronic and ongoing tobacco dependence with FEV1 111% of predicted, peripheral arterial disease status post aortobifemoral bypass in 2004. POD #4 off-pump coronary artery bypass graft 4, left internal mammary artery to the left anterior descending artery, reverse saphenous vein graft from the aorta to the right coronary artery, radial artery to the intermediate coronary artery, and reverse saphenous vein graft from the aorta to the first diagonal branch. Endovascular left greater saphenous vein harvest from the ankle to the thigh. Left radial artery harvest. Occlusion of the left atrial appendage with a 35 mm AtriCure clip Postoperative acute blood loss anemia and thrombocytopenia, expected, dilutional Patient's currently sitting up in a recliner in the intensive care unit in no acute distress. States postoperative chest pain and pain controlled with current medication regimen, denies shortness of breath. Remains in normal sinus rhythm and hemodynamically stable. Left pleural chest tubel remains present. N o new concerns. Objective - Vital Signs Vital signs: Vital Signs Temp 98.2 F 05/28/20 00:00 Pulse 105 H 05/28/20 07:41 Resp 20 05/28/20 02:00 BP 111/72 05/28/20 02:00 Pulse Ox 98 05/28/20 02:00 Intake & Output 05/27/20 05/28/20 05/28/20 18:59 06:59 18:59 Intake Total 264 180 Output Total 490 440 Balance -226 -260 Intake: IV 264 180 Pressure bags 24 Sodium Chloride 0.9% 1, 240 180 000 ml @ 20 mls/hr IV . Q24H [facility] Rx#:[id number] Output: Chest Tube Drainage 190 130 Left Lateral Chest 190 130 Urine 300 310 Other: Voiding Method Indwelling Catheter Bedside Commode ABP, PAP, CO, CI - Last Documented Arterial Blood Pressure 120/59 Pulmonary Artery Pressure 24/9 Cardiac Output 4.5 Cardiac Index 2.4 - Constitutional General appearance: Present: cooperative, no acute distress - Respiratory Details: Lungs sounds diminished bilaterally. Respirations even, nonlabored. Currently on 3 L nasal cannula with oxygen saturation 96%. Able to achieve 1250 mL on his incentive spirometry. Weak cough. Left pleural chest tube present to continuous wall suction, no air leak present. 170 mL serous drainage overnight, 450 mL in the last 24 hours. - Cardiovascular Details: S1, S2 present. Regular rate and rhythm, sinus rhythm on telemetry. Sternum stable. Palpable peripheral pulses bilaterally. Trace generalized edema present. No calf pain or tenderness noted. Heart hugger in place with patient demonstrating appropriate use. Antiembolism stockings, SCDs present. - Gastrointestinal Gastrointestinal Comment(s): Abdomen soft, nontender, nondistended. Active bowel sounds present 4 quadrants. Tolerating diet. Positive flatus, negative bowel movement. - Genitourinary Genitourinary Comment(s): Continues to void clear, yellow urine - Integumentary Integumentary Comment(s): Skin is warm and dry with evidence of good perfusion. Anterior chest incision well approximated and covered with dry intact dressing. 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 Left lower extremity EVH site well approximated - Neurologic Neurologic: Present: CNII-XII intact - Musculoskeletal Musculoskeletal: Present: gait normal, strength equal bilaterally - Psychiatric Psychiatric: Present: A&O x's 3, appropriate affect, intact judgment & insight - Allied health notes Allied health notes reviewed: nursing - Labs CBC & Chem 7: 05/28/20 03:54 05/28/20 03:54 Labs: Abnormal Lab Results - Last 24 Hours (Table) 05/27/20 05/27/20 05/27/20 Range/Units 12:11 16:57 20:31 WBC (3.8-10.6) k/uL RBC (4.30-5.90) m/uL Hgb (13.0-17.5) gm/dL Hct (39.0-53.0) % Plt Count (150-450) k/uL Sodium (137-145) mmol/L Carbon Dioxide (22-30) mmol/L BUN (9-20) mg/dL Glucose (74-99) mg/dL POC Glucose (mg/dL) 113 H 125 H 117 H (75-99) mg/dL Calcium (8.4-10.2) mg/dL 05/28/20 05/28/20 Range/Units 03:54 03:54 WBC 11.7 H (3.8-10.6) k/uL RBC 2.84 L (4.30-5.90) m/uL Hgb 8.9 L (13.0-17.5) gm/dL Hct 26.4 L (39.0-53.0) % Plt Count 138 L (150-450) k/uL Sodium 129 L (137-145) mmol/L Carbon Dioxide 19 L (22-30) mmol/L BUN 32 H (9-20) mg/dL Glucose 103 H (74-99) mg/dL POC Glucose (mg/dL) (75-99) mg/dL Calcium 8.3 L (8.4-10.2) mg/dL - Imaging and Cardiology Chest x-ray: image reviewed Assessment and Plan Assessment: 1. Multivessel coronary artery disease, status post four-vessel off-pump CABG 2. History of recent non-STEMI 3. Systolic heart failure/ischemic cardiomyopathy with most recent EF 35% improved from 20-25%, left ventricular thrombus, moderate mitral valve regu rgitation 4. Recent ischemic stroke with some residual left-sided weakness 5. Paroxysmal atrial fibrillation, on Eliquis for anticoagulation, currently in sinus, status post left atrial appendage ligation with 35 mm AtriCure clip 6. Hypertension 7. Hyperlipidemia, cholesterol 243, LDL 185 8. Chronic and ongoing tobacco dependence with FEV1 111% of predicted post bronchodilator 9. Peripheral arterial disease status post aortobifemoral bypass in 2004. 10. Postoperative acute blood loss anemia and from sit opinion, expected Plan: 1. Continue aspirin, statin, Plavix, beta mona therapy. Will increase beta mona as tolerated, increase to 50 mg twice daily today. 2. Wean O2 as tolerated. Bronchodilators per pulmonology. Encourage incentive spirometry 10 times every hour while awake 3. Increase activity, ambulate as tolerated. PT/OT/cardiac rehab consulted 4. Continue CCB for radial artery spasm prophylaxis. Do not discontinue CCB without discussing with cardiac surgery 5. Will monitor daily labs and x-rays. Electrolyte replacement per protocol. No transfusion necessary at this time. Will give 20 mg IV push Lasix today 6. GI/DVT prophylaxis 7. Insulin management per primary care service 8. Pain control with current medication regimen 9. Will discontinue left pleural chest tubes 10. Strict accurate intake and output. Daily weights. 11. Will place transfer orders for 3 [facility] cardiac stepdown unit. May transfer when bed available 12. Discharge planning in progress. Anticipate discharge to home with home care in the next 24-48 hours 13. More recommendations to follow based on patient's progress Seen and examined and agree with above Time with Patient: Greater than 30
[2020-05-28] MEDS: INSULIN ASPART (NovoLOG) 100 UNIT/ML VIAL SQ SCH ×4 (08:34→20:23)
[2020-05-28] MEDS: METOPROLOL TARTRATE 50 MG TAB PO SCH ×2 (08:39→20:20)
[2020-05-28] MEDS: PANTOPRAZOLE 40 MG TABLET PO SCH (08:39)
[2020-05-28] MEDS: ASPIRIN 325 MG TAB PO SCH (08:39)
[2020-05-28] MEDS: ATORVASTATIN 40 MG TAB PO SCH (08:39)
[2020-05-28] MEDS: CLOPIDOGREL 75 MG TAB PO SCH (08:41)
--- NOTE | 2020-05-28 10:24 | P.PN ---
Subjective Progress Note Date: 05/28/20 Principal diagnosis: Shortness of breath, multivessel coronary artery disease This is a 64-year-old tall white male patient who was hospitalized in March 2020 when he presented to the emergency department with complaints of severe shortness of breath, was diagnosed with non-ST elevated myocardial infarction, and his cardiac workup showed the multivessel coronary artery disease. During the same admission patient experienced acute ischemic stroke involving his right MCA. Transesophageal echocardiogram revealed severely impaired left ventricular systolic function with an EF of 20-25%, and intracardiac thrombus. Repeat transesophageal echocardiogram in April 2020 showed improvement in left ventricular systolic function and resolution of the intracardiac thrombus. Patient was referred to CT surgery for possibility of coronary artery bypass grafting. Today on 05/24/2020 patient underwent off-pump CABG 4 with endovascular vein harvest and the radial harvest and occlusion of the left atrial appendage. Patient is seen in the intensive care unit following his s urgery he is sedated and intubated on mechanical ventilator, with assist-control mode of ventilation with a rate of 12, tidal volumes 500, FiO2 is 50% and PEEP of 5. His postoperative blood gases showed pO2 of 369, pCO2 40, pH of 7.3, is was on FiO2 of 100%, and it has since been dropped to 50%. Hemodynamically stable, maintenance IV drips of 0.9 normal saline at a rate of 50 ML per hour, Cardizem is a 5 mg per hour, nitroglycerin is at 5 mics per kilo per minute, and improving is at 20 mics per kilo per minute. Patient is in sinus mechanism with a bradycardic rate of 51 BPM, PA pressure 35/20, cardiac output is 4.2, cardiac index is 2.2. Mediastinal and left pleural chest tube is why connected together, with a total of 180 cc of sanguinous output in the Pleur-evac which is connected to wall suction, with no evidence of air leak. Postoperative chest x- ray shows left lower lobe infiltrate likely related to atelectasis, ET tube, PA catheter in appropriate positions. On 05/25/2020 patient seen in follow-up in the intensive care unit. He was successfully extubated at 1800 yesterday on postoperative day 0 on 05/24/2020. Today is postoperative day 1, status post four-vessel coronary artery bypass grafting, with the left radial artery harvest, in the left leg endoscopic vein harvest and exclusion of the left atrial appendage. He is doing very well, hemodynamically stable, in sinus mechanism, no bradycardia, no tachycardia, he is on Cleviprex drip at 2 mg per hour, blood pressures 129/44, insulin is at 1- 1/2 units per hour, 3 L of oxygen pulse ox 94-97%. Lung sounds are clear, his incentive spirometry is around 800 mL, his pain is reasonably controlled, his left pleural and mediastinal chest tube throughout around 1300 of thin serosanguineous output in last 24 hours. His urine output is in order of 40-70 ML per hour, his last cardiac output was 4.6 and cardiac index was 2.4, with PA pressure of 24/9, and CVP of 2 as of 05 09 this morning, patient has been hemodynamically stable, and PA catheter has been discontinued this morning. Today's chest x-ray shows small atelectasis in the right base, improving left lower lobe infiltrate. His blood work has been reviewed showing white blood cell count of 14.8, hemoglobin of 10.2, platelet count is 117, sodium is 135, potassium 4.4, chloride is 110, CO2 is 19, BUN is 22, creatinine 0.89 On 05/28/2020 patient seen in follow-up in the intensive care unit, today is his postoperative day #4, status post four-vessel coronary artery bypass grafting, patient is doing very well, he is awake and alert, sitting up in the chair, is on 2 L of oxygen is pulse ox 97%, he is not on any IV fluids, his chest tubes have been discontinued, Clemens catheter has come out, Clemens catheter has been discontinued, he denies any specific complaints, no shortness of breath, lung sounds reveal some scattered crackles at bilateral bases, his pain is reasonably controlled. He's had no acute events overnight, he is in sinus mechanism on the monitor, hemodynamically has been stable, tolerating regular diet. Tolerating ambulation. Patient is anticipated to be transferred out today to selective care unit, today's chest x-ray has been reviewed showing patchy bibasilar opacities related to atelectasis. His lips have been reviewed. Sodium is down to 129, he has been placed on fluid restriction. Objective - Vital Signs Vital signs: Vital Signs Temp 97.7 F 05/28/20 08:00 Pulse 109 H 05/28/20 08:00 Resp 11 L 05/28/20 08:00 BP 127/80 05/28/20 08:00 Pulse Ox 93 L 05/28/20 08:00 Intake & Output 05/27/20 05/28/20 05/28/20 18:59 06:59 18:59 Intake Total 264 240 320 Output Total 490 1180 750 Balance -226 -940 -430 Weight 80.6 kg Intake: IV 264 240 20 Pressure bags 24 Sodium Chloride 0.9% 1, 240 240 20 000 ml @ 20 mls/hr IV . Q24H [facility] Rx#:[id number] Oral 300 Output: Chest Tube Drainage 190 170 0 Left Lateral Chest 190 170 0 Urine 300 1010 750 Other: Voiding Method Indwelling Catheter Bedside Commode Bedside Commode ABP, PAP, CO, CI - Last Documented Arterial Blood Pressure 120/59 Pulmonary Artery Pressure 24/9 Cardiac Output 4.5 Cardiac Index 2.4 - Exam GENERAL EXAM: Alert, oriented 3 64-year-old white male, room air pulse ox is 93-95% HEAD: Normocephalic/atraumatic. EYES: Normal reaction of pupils, equal size. Conjunctiva pink, sclera white. NOSE: Clear with pink turbinates. THROAT: No erythema or exudates. NECK: No masses, no JVD, no thyroid enlargement, no adenopathy. CHEST: No chest wall deformity. Symmetrical expansion. Midsternal incision clean dry and intact, 1 mediastinal and one left pleural chest tube was connected together been discontinued LUNGS: Equal air entry with no crackles, wheeze, rhonchi or dullness. CVS: Regular rate and rhythm, normal S1 and S2, no gallops, no murmurs, no rubs ABDOMEN: Soft, nontender. No hepatosplenomegaly, normal bowel sounds, no guarding or rigidity. EXTREMITIES: No clubbing, no edema, no cyanosis, 2+ pulses and upper and lower extremities. MUSCULOSKELETAL: Muscle strength and tone normal. Left radial artery harvest s ite clean dry and intact, with CASIMIRO drain discontinued, left leg venous graft harvest site wrapped in Regan dressings, and dry and intact SPINE: No scoliosis or deformity SKIN: No rashes CENTRAL NERVOUS SYSTEM: Awake and alert, oriented 3 No focal deficits, tone is normal in all 4 extremities. - Labs CBC & Chem 7: 05/28/20 03:54 05/28/20 03:54 Labs: Abnormal Lab Results - Last 24 Hours (Table) 05/27/20 05/27/20 05/27/20 Range/Units 12:11 16:57 20:31 WBC (3.8-10.6) k/uL RBC (4.30-5.90) m/uL Hgb (13.0-17.5) gm/dL Hct (39.0-53.0) % Plt Count (150-450) k/uL Sodium (137-145) mmol/L Carbon Dioxide (22-30) mmol/L BUN (9-20) mg/dL Glucose (74-99) mg/dL POC Glucose (mg/dL) 113 H 125 H 117 H (75-99) mg/dL Calcium (8.4-10.2) mg/dL 05/28/20 05/28/20 05/28/20 Range/Units 03:54 03:54 08:17 WBC 11.7 H (3.8-10.6) k/uL RBC 2.84 L (4.30-5.90) m/uL Hgb 8.9 L (13.0-17.5) gm/dL Hct 26.4 L (39.0-53.0) % Plt Count 138 L (150-450) k/uL Sodium 129 L (137-145) mmol/L Carbon Dioxide 19 L (22-30) mmol/L BUN 32 H (9-20) mg/dL Glucose 103 H (74-99) mg/dL POC Glucose (mg/dL) 109 H (75-99) mg/dL Calcium 8.3 L (8.4-10.2) mg/dL Assessment and Plan Plan: Assessment: #1. Symptomatic multivessel coronary artery disease, status post four-vessel coronary artery bypass grafting with BERNARDO to the LAD, radial arterial graft to intermediate coronary artery, SVG to the diagonal, SVG to the RCA, with left radial artery harvest, left leg endoscopic vein harvest, and exclusion of the left atrial appendage, postoperative day 4 #2. Recent history of non-ST elevated myocardial infarction in March 2020 #3. Recent history of ischemic stroke involving the right MCA in March 2020 #4. Severe ischemic cardiomyopathy with EF of 20-25%, with the recent documented improvement up to 40% on most recent transesophageal echocardiogram #5. Intracardiac thrombus in the left ventricle seen on the transesophageal echocardiogram from March 2020, resolved #6. Paroxysmal atrial fibrillation #7. Hypertension #8. Hyperlipidemia #9. Chronic ongoing tobacco dependence #10. History of peripheral arterial disease status post aorto bifemoral bypass in 2004 #11. Routine postoperative ventilator management, patient was successfully weaned and extubated on postoperative day 0 on 05/24/2020 #12. Acute kidney injury, improved #13. Hyponatremia likely hypervolemic, on fluid restriction Plan: Continue encouraging deep breathing and coughing, today's chest x-ray has been reviewed, showing bibasilar atelectasis, wean FiO2, encourage ambulation, continue with fluid restriction, repeat chest x-ray in the morning, repeat labs, no acute events overnight, hemodynamically stable. We'll continue to follow, plan is for the patient to transfer out of intensive care unit today. I performed a history & physical examination of the patient and discussed their management with my nurse practitioner, Deedee Turcios. I reviewed the nurse practitioner's note and agree with the documented findings and plan of care. Lung sounds are positive for clear breath sounds. The findings and the impression was discussed with the patient. I attest to the documentation by the nurse practitioner. Time with Patient: Less than 30
[2020-05-28 11:54] LABS: Glucose,Whole Blood 123 mg/dL (75-99)
[2020-05-28] MEDS: amLODIPine 5 MG TAB PO SCH (12:04)
--- NOTE | 2020-05-28 14:36 | P.PN ---
Progress Note - Text Progress Note Date: 05/28/20 - Chief Complaint CABG Consultation: This is a pleasant 64-year-old patient whose PCP is Dr. Rosalino Mcallister. Chronic stable medical conditions include coronary artery disease, left arm weakness from prior stroke, CHF, [that is no left ventricular thrombus on no prior KASSIE], diverticulosis. Underwent four-vessel coronary bypass Today-feeling better. Eating well. Telemetry shows sinus rhythm. Had a bowel movement. Ambulating. Review of systems: Was done for constitutional, cardiovascular, GI, pulmonary. relevant finding as above Active Medications Acetaminophen (Acetaminophen Tab 500 Mg Tab) 1,000 mg PO Q6HR PRN PRN Reason: Fever and/ or MILD Pain Last Admin: 05/26/20 19:58 Dose: 1,000 mg Documented by: Hydrocodone Bitart/Acetaminophen (Hydrocodone/Apap 7.5-325mg 1 Each Tab) 1 each PO Q4H PRN PRN Reason: Pain Last Admin: 05/26/20 10:32 Dose: 1 each Documented by: Albuterol/Ipratropium (Ipratropium-Albuterol 3 Ml Neb) 3 ml INHALATION RT-Q2H PRN PRN Reason: Shortness Of Breath Or Wheezing Albuterol/Ipratropium (Ipratropium-Albuterol 3 Ml Neb) 3 ml INHALATION RT-QID [facility] Last Admin: 05/28/20 12:03 Dose: 3 ml Documented by: Amlodipine Besylate (Amlodipine 5 Mg Tab) 5 mg PO DAILY@1200 [facility] Last Admin: 05/28/20 12:04 Dose: 5 mg Documented by: Aspirin (Aspirin 325 Mg Tab) 325 mg PO DAILY [facility] Last Admin: 05/28/20 08:39 Dose: 325 mg Documented by: Atorvastatin Calcium (Atorvastatin 40 Mg Tab) 40 mg PO DAILY [facility] Last Admin: 05/28/20 08:39 Dose: 40 mg Documented by: Benzocaine/Menthol (Benzocaine/Menthol Lozeng 1 Each Lozenge) 1 each MUCOUS MEM Q2H PRN PRN Reason: Sore Throat Bisacodyl (Bisacodyl 10 Mg Supp) 10 mg RECTAL DAILY PRN PRN Reason: Constipation Clopidogrel Bisulfate (Clopidogrel 75 Mg Tab) 75 mg PO DAILY [facility] Last Admin: 05/28/20 08:41 Dose: 75 mg Documented by: Heparin Sodium (Porcine) (Heparin Sodium,Porcine 5,000 Unit/Ml 1 Ml Vial) 5,000 unit SQ Q8HR [facility] Last Admin: 05/28/20 08:40 Dose: 5,000 unit Documented by: Amiodarone HCl 150 mg/ (Dextrose/Water) 103 mls @ 618 mls/hr IV .Q10M PRN; Protocol PRN Reason: A.FIB/FLUTTER Amiodarone HCl 360 mg/ (Dextrose/Water) 200 mls @ 33.333 mls/hr IV .Q6H PRN; Protocol PRN Reason: A.FIB/FLUTTER Amiodarone HCl 300 mg/ (Dextrose/Water) 250 mls @ 25 mls/hr IV .Q10H PRN; Protocol PRN Reason: A.FIB/FLUTTER Insulin Aspart (Insulin Aspart (Novolog) 100 Unit/Ml Vial) 0 unit SQ ACHS [facility]; Protocol Last Admin: 05/28/20 12:02 Dose: Not Given Documented by: Magnesium Hydroxide (Magnesium Hydroxide 2,400 Mg/10 Ml Cup) 2,400 mg PO BID PRN PRN Reason: Constipation Last Admin: 05/27/20 08:53 Dose: 2,400 mg Documented by: Metoclopramide HCl (Metoclopramide 5 Mg/Ml 2 Ml Vial) 10 mg IVP Q4H PRN PRN Reason: Nausea And Vomiting Metoprolol Tartrate (Metoprolol Tartrate 50 Mg Tab) 50 mg PO BID [facility] Last Admin: 05/28/20 08:39 Dose: 50 mg Documented by: Miscellaneous Information (Potassium Replacement Protocol 1 Each Misc) 1 each MISCELLANE DAILY PRN; Protocol PRN Reason: Per Protocol Miscellaneous Information (Magnesium Replacement Protocol 1 Each Misc) 1 each MISCELLANE DAILY PRN; Protocol PRN Reason: Per Protocol Miscellaneous Information (Phosphorus Replacement Protoco 1 Each Misc) 1 each MISCELLANE DAILY PRN; Protocol PRN Reason: Per Protocol Ondansetron HCl (Ondansetron 4 Mg/2 Ml Vial) 4 mg IVP Q6HR PRN PRN Reason: Nausea And Vomiting Pantoprazole Sodium (Pantoprazole 40 Mg Tablet) 40 mg PO -BRKFST [facility] Last Admin: 05/28/20 08:39 Dose: 40 mg Documented by: Senna/Docusate Sodium (Sennosides-Docusate Sodium 1 Each Tab) 2 each PO HS [facility] Last Admin: 05/27/20 20:45 Dose: 2 each Documented by: Sodium Chloride (Sodium Chloride 0.9% Flush 10 Ml Syringe) 10 ml IV BID [facility] Last Admin: 05/28/20 08:44 Dose: 10 ml Documented by: Physical examination: VITAL SIGNS: 97.7, 109, 11, 127/80, 93% on room air GENERAL: sitting up in a chair, comfortable EYES: [Pupils equal. Conjunctiva pale HEENT: External appearance of nose and ears normal, oral cavity grossly normal. NECK: JVD unable to assess; masses not palpable. HEART: First and second heart sounds are normal; mild edema. LUNGS: Respiratory rate increased decreased breath sounds. ABDOMEN: Soft, nontender, liver spleen not palpable, no masses palpable. PSYCH: Alert and oriented x3; mood and affect normal. INVESTIGATIONS, reviewed in the clinical context: White count 11.7 hemoglobin 8.9 potassium 4.6 creatinine 0.95 sodium 129 Previous testing White count 14.8 hemoglobin 10.2 platelets 117 potassium 4.4 creatinine 0.89 Preoperative labs: White count 10.1 hemoglobin 14.5 platelets 163 COVID 19 P/Cr-not detected Chest x-ray showing-atelectasis chest tubes Assessment: -CABG, 4 vessels -Coronary artery disease -Chronic diverticulosis -Chronic congestive congestive heart failure EF 20-25% -Acute postprocedure blood loss anemia, expected from surgery -Dilutional thrombocytopenia -Acute kidney injury likely prerenal from diuresis. Creatinine is gone from 0.8-1.29 -Mild hyponatremia -Leukocytosis likely reactive. No clinical evidence of infection Plan: Continue current medication. We'll restrict fluids to 1800 mL an day. Other medications to continue. Patient coming along fine. Thank you Dr. Gleason
--- NOTE | 2020-05-28 14:51 | P.PN ---
Subjective Progress Note Date: 05/28/20 This is a pleasant 64-year-old gentleman who presented to the hospital with a non-ST elevation myocardial infarction, cardiac workup showed multivessel coronary artery disease. During that same admission patient experienced an acute ischemic stroke involving his right MCA. Transesophageal echoc ardiographic study performed at that time showed severely impaired left ventricular systolic function with an EF of 20-25%, and intracardiac thrombus. Repeat transesophageal echocardiogram in April 2020 showed improvement in left ventricular systolic function and resolution of the intracardiac thrombus. Patient was referred to CT surgery for possibility of coronary artery bypass grafting. Patient underwent off-pump CABG 4 with endovascular vein harvest and the radial harvest and occlusion of the left atrial appendage. He was seen and examined in the intensive care unit today, postoperative day 4. Sitting up in the chair at bedside, on 2 L of oxygen. Chest tubes were removed over the weekend. He is reaching 1300 on his incentive spirometry. Continues to have some fine crackles bilaterally, encouraged to continue the use of his incentive spirometry. Blood pressure 115/70 with a heart rate in the 70s. White blood cell count 11.7, hemoglobin 8.9, platelet count 138. Sodium 129, potassium 4.6, BUN 32, creatinine 0.9. Objective - Vital Signs Vital signs: Vital Signs Temp 97.7 F 05/28/20 12:00 Pulse 92 05/28/20 12:12 Resp 25 H 05/28/20 12:00 BP 115/70 05/28/20 12:00 Pulse Ox 95 05/28/20 12:00 Intake & Output 05/27/20 05/28/20 05/28/20 18:59 06:59 18:59 Intake Total 264 240 320 Output Total 490 1180 750 Balance -226 -940 -430 Weight 80.6 kg Intake: IV 264 240 20 Pressure bags 24 Sodium Chloride 0.9% 1, 240 240 20 000 ml @ 20 mls/hr IV . Q24H [facility] Rx#:[id number] Oral 300 Output: Chest Tube Drainage 190 170 0 Left Lateral Chest 190 170 0 Urine 300 1010 750 Other: Voiding Method Indwelling Catheter Bedside Commode Bedside Commode ABP, PAP, CO, CI - Last Documented Arterial Blood Pressure 120/59 Pulmonary Artery Pressure 24/9 Cardiac Output 4.5 Cardiac Index 2.4 - Exam PHYSICAL EXAMINATION: GENERAL: She 4-year-old gentleman in no acute distress at the time of my examination HEENT: Head is atraumatic, normocephalic. Pupils equal, round. Sclera anicteric. Conjunctiva are clear. Mucous membranes of the mouth are moist. Neck is supple. There is no elevated jugular venous pressure. No carotid bruit is heard. HEART EXAMINATION: Heart S1, S2 normal. No murmur or gallop heard. CHEST EXAMINATION: Fine crackles heard to the bases bilaterally ABDOMEN: Soft, nontender. Bowel sounds are heard. No organomegaly noted. EXTREMITIES: 2+ peripheral pulses with no evidence of peripheral edema and no calf tenderness noted. NEUROLOGIC patient is awake, alert and oriented 3 . - Labs CBC & Chem 7: 05/28/20 03:54 05/28/20 03:54 Labs: Abnormal Lab Results - Last 24 Hours (Table) 05/27/20 05/27/20 05/28/20 Range/Units 16:57 20:31 03:54 WBC 11.7 H (3.8-10.6) k/uL RBC 2.84 L (4.30-5.90) m/uL Hgb 8.9 L (13.0-17.5) gm/dL Hct 26.4 L (39.0-53.0) % Plt Count 138 L (150-450) k/uL Sodium (137-145) mmol/L Carbon Dioxide (22-30) mmol/L BUN (9-20) mg/dL Glucose (74-99) mg/dL POC Glucose (mg/dL) 125 H 117 H (75-99) mg/dL Calcium (8.4-10.2) mg/dL 05/28/20 05/28/20 05/28/20 Range/Units 03:54 08:17 11:53 WBC (3.8-10.6) k/uL RBC (4.30-5.90) m/uL Hgb (13.0-17.5) gm/dL Hct (39.0-53.0) % Plt Count (150-450) k/uL Sodium 129 L (137-145) mmol/L Carbon Dioxide 19 L (22-30) mmol/L BUN 32 H (9-20) mg/dL Glucose 103 H (74-99) mg/dL POC Glucose (mg/dL) 109 H 123 H (75-99) mg/dL Calcium 8.3 L (8.4-10.2) mg/dL Assessment and Plan Plan: Assessment and plan #1. Symptomatic multivessel coronary artery disease, status post four-vessel coronary artery bypass grafting with BERNARDO to the LAD, radial arterial graft to intermediate coronary artery, SVG to the diagonal, SVG to the RCA, with left radial artery harvest, left leg endoscopic vein harvest, and exclusion of the left atrial appendage, postoperative day 4 #2. Recent history of non-ST elevated myocardial infarction in March 2020 #3. Recent history of ischemic stroke involving the right MCA in March 2020 #4. Severe ischemic cardiomyopathy with EF of 20-25%, with the recent documented improvement up to 40% on most recent transesophageal echocardiogram #5. Intracardiac thrombus in the left ventricle seen on the transesophageal echocardiogram from March 2020, resolved #6. Paroxysmal atrial fibrillation #7. Hypertension #8. Hyperlipidemia #9. Chronic ongoing tobacco dependence #10. History of peripheral arterial disease status post aorto bifemoral bypass in 2004 Plan Patient's current medications have been reviewed, we will continue with same. He's been encouraged regarding the use of his incentive spirometry. Planning for possible discharge home in 24-48 hours. DNP note has been reviewed, I agree with a documented findings and plan of care. Patient was seen and examined.
[2020-05-28 16:57] LABS: Glucose,Whole Blood 122 mg/dL (75-99)
[2020-05-28 20:16] LABS: Glucose,Whole Blood 117 mg/dL (75-99)
[2020-05-28] MEDS: SENNOSIDES-DOCUSATE SODIUM 1 EACH TAB PO SCH (20:20)
[2020-05-29] MEDS: HEPARIN SODIUM,PORCINE 5,000 UNIT/ML 1 ML VIAL SQ SCH ×2 (00:08→08:53)
[2020-05-29 04:23] LABS: HCT 27.9 % (39.0-53.0); MCH 29.3 pg (25.0-35.0); MCHC 32.2 g/dL (31.0-37.0); Mean Platelet Volume 8.3; Platelet Count 161 k/uL (150-450); RBC 3.06 m/uL (4.30-5.90); RDW 15.5 % (11.5-15.5); WBC 11.2 k/uL (3.8-10.6)
[2020-05-29 04:35] LABS: African American GFR (CKD) >90 (>60 ml/min/1.73 sqM); Anion Gap 7 mmol/L; Blood Urea Nitrogen 30 mg/dL (9-20); Calcium 8.5 mg/dL (8.4-10.2); Carbon Dioxide 22 mmol/L (22-30); Chloride 105 mmol/L (98-107); Glucose 107 mg/dL (74-99); Non-African American GFR(CKD) 83 (>60 ml/min/1.73 sqM); Potassium 4.4 mmol/L (3.5-5.1); Sodium 134 mmol/L (137-145)
[2020-05-29 06:46] LABS: Glucose,Whole Blood 111 mg/dL (75-99)
--- NOTE | 2020-05-29 07:10 | XR ---
EXAM: XR Chest, 2 Views CLINICAL HISTORY: ITS.REASON XR Reason: post cardiac surgery TECHNIQUE: Frontal and lateral views of the chest. COMPARISON: 05/28/2020 FINDINGS: Lungs: Subsegmental changes at the lung bases appear improved from the previous exam. The pulmonary vasculature demonstrates no significant interval increase. Pleural space: Small bilateral pleural effusions noted. Heart: Stable cardiomegaly with postoperative changes consistent with prior CABG and atrial appendage closure. Mediastinum: Stable mediastinal clips. The trachea is midline. Bones/joints: Unremarkable. Tubes, lines and devices: The left chest tube is thought to be stable. IMPRESSION: Subsegmental changes at the lung bases appear improved from the previous exam. Small bilateral pleural effusions appear slightly greater from the previous exam. No pneumothorax.
[2020-05-29] MEDS ORDERED: SENNOSIDES-DOCUSATE SODIUM 1 EACH TAB PO PRN (07:13)
[2020-05-29] MEDS ORDERED: FUROSEMIDE 10 MG/ML 2 ML VIAL IV ONE (07:13)
[2020-05-29] MEDS: INSULIN ASPART (NovoLOG) 100 UNIT/ML VIAL SQ SCH ×2 (07:26→12:18)
[2020-05-29] MEDS: IPRATROPIUM-ALBUTEROL 3 ML NEB INHALATION SCH ×2 (08:00→11:26)
--- NOTE | 2020-05-29 08:03 | P.PN ---
Subjective Progress Note Date: 05/29/20 Principal diagnosis: Multivessel coronary artery disease. Previous medical history of recent non- STEMI, systolic heart failure/ischemic cardiomyopathy with most recent EF 35% improved from 20-25%, left ventricular thrombus, moderate mitral valve regurgitation, recent ischemic stroke, paroxysmal atrial fibrillation, hypertension, hyperlipidemia, chronic and ongoing tobacco dependence with FEV1 111% of predicted, peripheral arterial disease status post aortobifemoral bypass in 2004. POD #5 off-pump coronary artery bypass graft 4, left internal mammary artery to the left anterior descending artery, reverse saphenous vein graft from the aorta to the right coronary artery, radial artery to the intermediate coronary artery, and reverse saphenous vein graft from the aorta to the first diagonal branch. Endovascular left greater saphenous vein harvest from the ankle to the thigh. Left radial artery harvest. Occlusion of the left atrial appendage with a 35 mm AtriCure clip Postoperative acute blood loss anemia and thrombocytopenia, expected, dilutional Patient's currently sitting up in a recliner in the intensive care unit in no acute distress. States postoperative chest pain and pain controlled with current medication regimen, denies shortness of breath. Remains in normal sinus rhythm and hemodynamically stable. Ambulated in the hallway without difficulty. Transfer orders placed yesterday for [address] [facility] cardiac stepdown unit, no beds available. No new concerns. Objective - Vital Signs Vital signs: Vital Signs Temp 98.7 F 05/29/20 04:00 Pulse 81 05/29/20 05:00 Resp 20 05/29/20 05:00 BP 123/65 05/29/20 05:00 Pulse Ox 95 05/29/20 05:00 Intake & Output 05/28/20 05/29/20 05/29/20 18:59 06:59 18:59 Intake Total 720 Output Total 1950 650 Balance -1230 -650 Weight 80.6 kg Intake: IV 20 Sodium Chloride 0.9% 1, 20 000 ml @ 20 mls/hr IV . Q24H [facility] Rx#:[id number] Oral 700 Output: Chest Tube Drainage 0 Left Lateral Chest 0 Urine 1950 650 Other: Voiding Method Bedside Commode Bedside Commode # Voids 3 # Bowel Movements 2 3 ABP, PAP, CO, CI - Last Documented Arterial Blood Pressure 120/59 Pulmonary Artery Pressure 24/9 Cardiac Output 4.5 Cardiac Index 2.4 - Constitutional General appearance: Present: cooperative, no acute distress - Respiratory Details: Lungs sounds diminished bilaterally. Respirations even, nonlabored. Currently on room air with oxygen saturation 93%. Able to achieve 1500 mL on his incentive spirometry. Strong cough. - Cardiovascular Details: S1, S2 present. Regular rate and rhythm, sinus rhythm on telemetry. Sternum stable. Palpable peripheral pulses bilaterally. Trace generalized edema present. No calf pain or tenderness noted. Heart hugger in place with patient demonstrating appropriate use. Antiembolism stockings, SCDs present. - Gastrointestinal Gastrointestinal Comment(s): Abdomen soft, nontender, nondistended. Active bowel sounds present 4 quadrants. Tolerating diet. Positive bowel movement. - Genitourinary Genitourinary Comment(s): Continues to void clear, yellow urine - Integumentary Integumentary Comment(s): Skin is warm and dry with evidence of good perfusion. Anterior chest incision well approximated and covered with dry intact dressing. Left radial artery harvest site well approximated, skin is warm and pink, good cap refill, patient able to wiggle all fingers and radio officer appropriately, denies any numbness. Left lower extremity EVH site well approximated - Neurologic Neurologic: Present: CNII-XII intact - Musculoskeletal Musculoskeletal: Present: gait normal, strength equal bilaterally - Psychiatric Psychiatric: Present: A&O x's 3, appropriate affect, intact judgment & insight - Allied health notes Allied health notes reviewed: nursing - Labs CBC & Chem 7: 05/29/20 04:03 05/29/20 04:03 Labs: Abnormal Lab Results - Last 24 Hours (Table) 05/28/20 05/28/20 05/28/20 Range/Units 08:17 11:53 16:56 WBC (3.8-10.6) k/uL RBC (4.30-5.90) m/uL Hgb (13.0-17.5) gm/dL Hct (39.0-53.0) % Sodium (137-145) mmol/L BUN (9-20) mg/dL Glucose (74-99) mg/dL POC Glucose (mg/dL) 109 H 123 H 122 H (75-99) mg/dL 05/28/20 05/29/20 05/29/20 Range/Units 20:15 04:03 04:03 WBC 11.2 H (3.8-10.6) k/uL RBC 3.06 L (4.30-5.90) m/uL Hgb 9.0 L (13.0-17.5) gm/dL Hct 27.9 L (39.0-53.0) % Sodium 134 L (137-145) mmol/L BUN 30 H (9-20) mg/dL Glucose 107 H (74-99) mg/dL POC Glucose (mg/dL) 117 H (75-99) mg/dL 05/29/20 Range/Units 06:44 WBC (3.8-10.6) k/uL RBC (4.30-5.90) m/uL Hgb (13.0-17.5) gm/dL Hct (39.0-53.0) % Sodium (137-145) mmol/L BUN (9-20) mg/dL Glucose (74-99) mg/dL POC Glucose (mg/dL) 111 H (75-99) mg/dL - Imaging and Cardiology Chest x-ray: report reviewed, image reviewed Assessment and Plan Assessment: 1. Multivessel coronary artery disease, status post four-vessel off-pump CABG 2. History of recent non-STEMI 3. Systolic heart failure/ischemic cardiomyopathy with most recent EF 35% improved from 20-25%, left ventricular thrombus, moderate mitral valve regurgitation 4. Recent ischemic stroke with some residual left-sided weakness 5. Paroxysmal atrial fibrillation, on Eliquis for anticoagulation, currently in sinus, status post left atrial appendage ligation with 35 mm AtriCure clip 6. Hypertension 7. Hyperlipidemia, cholesterol 243, LDL 185 8. Chronic and ongoing tobacco dependence with FEV1 111% of predicted post bronchodilator 9. Peripheral arterial disease status post aortobifemoral bypass in 2004. 10. Postoperative acute blood loss anemia and from sit opinion, expected Plan: 1. Continue aspirin, statin, Plavix, beta mona therapy. Will increase beta mona as tolerated. Low-dose PORTER inhibitor added for afterload reduction 2. Bronchodilators per pulmonology. Encourage incentive spirometry 10 times every hour while awake 3. Increase activity, ambulate as tolerated. PT/OT/cardiac rehab consulted 4. Continue CCB for radial artery spasm prophylaxis. Do not discontinue CCB without discussing with cardiac surgery 5. Will monitor daily labs and x-rays. Electrolyte replacement per protocol. No transfusion necessary at this time. Will give 20 mg IV push Lasix today 6. GI/DVT prophylaxis 7. Insulin management per primary care service 8. Pain control with current medication regimen 9. Strict accurate intake and output. Daily weights. 10. Transfer orders placed yesterday for [address] [facility] cardiac stepdown unit, no bed available 11. Discharge planning in progress. Anticipate discharge to home with home care this afternoon 12. Will repeat limited echo to assess left ventricular function. Patient may need LifeVest at discharge 13. More recommendations to follow based on patient's progress Seen and examined and agree with above Time with Patient: Greater than 30
[2020-05-29] MEDS: PANTOPRAZOLE 40 MG TABLET PO SCH (08:53)
[2020-05-29] MEDS: CLOPIDOGREL 75 MG TAB PO SCH (08:53)
[2020-05-29] MEDS: METOPROLOL TARTRATE 50 MG TAB PO SCH (08:53)
[2020-05-29] MEDS: ASPIRIN 325 MG TAB PO SCH (08:53)
[2020-05-29] MEDS: ATORVASTATIN 40 MG TAB PO SCH (08:53)
--- NOTE | 2020-05-29 09:54 | P.PN ---
Subjective Progress Note Date: 05/29/20 Principal diagnosis: Shortness of breath, multivessel coronary artery disease This is a 64-year-old tall white male patient who was hospitalized in March 2020 when he presented to the emergency department with complaints of severe shortness of breath, was diagnosed with non-ST elevated myocardial infarction, and his cardiac workup showed the multivessel coronary artery disease. During the same admission patient experienced acute ischemic stroke involving his right MCA. Transesophageal echocardiogram revealed severely impaired left ventricular systolic function with an EF of 20-25%, and intracardiac thrombus. Repeat transesophageal echocardiogram in April 2020 showed improvement in left ventricular systolic function and resolution of the intracardiac thrombus. Patient was referred to CT surgery for possibility of coronary artery bypass grafting. Today on 05/24/2020 patient underwent off-pump CABG 4 with endovascular vein harvest and the radial harvest and occlusion of the left atrial appendage. Patient is seen in the intensive care unit following his s urgery he is sedated and intubated on mechanical ventilator, with assist-control mode of ventilation with a rate of 12, tidal volumes 500, FiO2 is 50% and PEEP of 5. His postoperative blood gases showed pO2 of 369, pCO2 40, pH of 7.3, is was on FiO2 of 100%, and it has since been dropped to 50%. Hemodynamically stable, maintenance IV drips of 0.9 normal saline at a rate of 50 ML per hour, Cardizem is a 5 mg per hour, nitroglycerin is at 5 mics per kilo per minute, and improving is at 20 mics per kilo per minute. Patient is in sinus mechanism with a bradycardic rate of 51 BPM, PA pressure 35/20, cardiac output is 4.2, cardiac index is 2.2. Mediastinal and left pleural chest tube is why connected together, with a total of 180 cc of sanguinous output in the Pleur-evac which is connected to wall suction, with no evidence of air leak. Postoperative chest x- ray shows left lower lobe infiltrate likely related to atelectasis, ET tube, PA catheter in appropriate positions. On 05/25/2020 patient seen in follow-up in the intensive care unit. He was successfully extubated at 1800 yesterday on postoperative day 0 on 05/24/2020. Today is postoperative day 1, status post four-vessel coronary artery bypass grafting, with the left radial artery harvest, in the left leg endoscopic vein harvest and exclusion of the left atrial appendage. He is doing very well, hemodynamically stable, in sinus mechanism, no bradycardia, no tachycardia, he is on Cleviprex drip at 2 mg per hour, blood pressures 129/44, insulin is at 1- 1/2 units per hour, 3 L of oxygen pulse ox 94-97%. Lung sounds are clear, his incentive spirometry is around 800 mL, his pain is reasonably controlled, his left pleural and mediastinal chest tube throughout around 1300 of thin serosanguineous output in last 24 hours. His urine output is in order of 40-70 ML per hour, his last cardiac output was 4.6 and cardiac index was 2.4, with PA pressure of 24/9, and CVP of 2 as of 05 09 this morning, patient has been hemodynamically stable, and PA catheter has been discontinued this morning. Today's chest x-ray shows small atelectasis in the right base, improving left lower lobe infiltrate. His blood work has been reviewed showing white blood cell count of 14.8, hemoglobin of 10.2, platelet count is 117, sodium is 135, potassium 4.4, chloride is 110, CO2 is 19, BUN is 22, creatinine 0.89 On 05/28/2020 patient seen in follow-up in the intensive care unit, today is his postoperative day #4, status post four-vessel coronary artery bypass grafting, patient is doing very well, he is awake and alert, sitting up in the chair, is on 2 L of oxygen is pulse ox 97%, he is not on any IV fluids, his chest tubes have been discontinued, Clemens catheter has come out, Clemens catheter has been discontinued, he denies any specific complaints, no shortness of breath, lung sounds reveal some scattered crackles at bilateral bases, his pain is reasonably controlled. He's had no acute events overnight, he is in sinus mechanism on the monitor, hemodynamically has been stable, tolerating regular diet. Tolerating ambulation. Patient is anticipated to be transferred out today to selective care unit, today's chest x-ray has been reviewed showing patchy bibasilar opacities related to atelectasis. His lips have been reviewed. Sodium is down to 129, he has been placed on fluid restriction. On 05/29/2020 patient seen in follow-up in the intensive care unit, today is postoperative day #5, status post four-vessel coronary artery bypass grafting, patient is doing very well, he is awake and alert, oriented 3, room air pulse ox is 93%, breathing comfortably, lung sounds reveal diminished breath sounds at bilateral bases, patient is working in incentive spirometer, he is achieving 4765-2976 ML on the today. Today's chest x-ray has been reviewed showing subsegmental changes at the lung bases that are improving from the previous exam, small bilateral pleural effusions. We'll IV fluids have been hep-locked, all the chest tubes have been discontinued, Clemens catheter has been discontinued, patient has been ambulating, tolerating activity very well, he is in sinus mechanism on a monitor, had no acute events overnight, all incisions are clean dry and intact, possible discharge home is pending today if cleared by CT surgery Objective - Vital Signs Vital signs: Vital Signs Temp 97.6 F 05/29/20 08:00 Pulse 100 05/29/20 08:21 Resp 12 05/29/20 08:00 BP 120/72 05/29/20 08:00 Pulse Ox 93 L 05/29/20 08:00 Intake & Output 05/28/20 05/29/20 05/29/20 18:59 06:59 18:59 Intake Total 720 Output Total 1950 650 225 Balance -1230 -650 -225 Weight 80.6 kg Intake: IV 20 Sodium Chloride 0.9% 1, 20 000 ml @ 20 mls/hr IV . [facility] Rx#:[id number] Oral 700 Output: Chest Tube Drainage 0 Left Lateral Chest 0 Urine 1950 650 125 Urine/Stool Mix 100 Other: Voiding Method Bedside Commode Bedside Commode # Voids 3 # Bowel Movements 2 3 1 ABP, PAP, CO, CI - Last Documented Arterial Blood Pressure 120/59 Pulmonary Artery Pressure 24/9 Cardiac Output 4.5 Cardiac Index 2.4 - Exam GENERAL EXAM: Alert, oriented 3 64-year-old white male, room air pulse ox is 93-95% HEAD: Normocephalic/atraumatic. EYES: Normal reaction of pupils, equal size. Conjunctiva pink, sclera white. NOSE: Clear with pink turbinates. THROAT: No erythema or exudates. NECK: No masses, no JVD, no thyroid enlargement, no adenopathy. CHEST: No chest wall deformity. Symmetrical expansion. Midsternal incision clean dry and intact, mediastinal and left pleural chest tube discontinued LUNGS: Equal air entry with no crackles, wheeze, rhonchi or dullness. CVS: Regular rate and rhythm, normal S1 and S2, no gallops, no murmurs, no rubs ABDOMEN: Soft, nontender. No hepatosplenomegaly, normal bowel sounds, no guarding or rigidity. EXTREMITIES: No clubbing, no edema, no cyanosis, 2+ pulses and upper and lower extremities. MUSCULOSKELETAL: Muscle strength and tone normal. Left radial artery harvest site clean dry and intact, with CASIMIRO drain discontinued, left leg venous graft harvest site wrapped in Regan dressings, and dry and intact SPINE: No scoliosis or deformity SKIN: No rashes CENTRAL NERVOUS SYSTEM: Awake and alert, oriented 3 No focal deficits, tone is normal in all 4 extremities. - Labs CBC & Chem 7: 05/29/20 04:03 05/29/20 04:03 Labs: Abnormal Lab Results - Last 24 Hours (Table) 05/28/20 05/28/20 05/28/20 Range/Units 11:53 16:56 20:15 WBC (3.8-10.6) k/uL RBC (4.30-5.90) m/uL Hgb (13.0-17.5) gm/dL Hct (39.0-53.0) % Sodium (137-145) mmol/L BUN (9-20) mg/dL Glucose (74-99) mg/dL POC Glucose (mg/dL) 123 H 122 H 117 H (75-99) mg/dL 05/29/20 05/29/20 05/29/20 Range/Units 04:03 04:03 06:44 WBC 11.2 H (3.8-10.6) k/uL RBC 3.06 L (4.30-5.90) m/uL Hgb 9.0 L (13.0-17.5) gm/dL Hct 27.9 L (39.0-53.0) % Sodium 134 L (137-145) mmol/L BUN 30 H (9-20) mg/dL Glucose 107 H (74-99) mg/dL POC Glucose (mg/dL) 111 H (75-99) mg/dL Assessment and Plan Plan: Assessment: #1. Symptomatic multivessel coronary artery disease, status post four-vessel c oronary artery bypass grafting with BERNARDO to the LAD, radial arterial graft to intermediate coronary artery, SVG to the diagonal, SVG to the RCA, with left radial artery harvest, left leg endoscopic vein harvest, and exclusion of the left atrial appendage, postoperative day 5 #2. Recent history of non-ST elevated myocardial infarction in March 2020 #3. Recent history of ischemic stroke involving the right MCA in March 2020 #4. Severe ischemic cardiomyopathy with EF of 20-25%, with the recent documented improvement up to 40% on most recent transesophageal echocardiogram #5. Intracardiac thrombus in the left ventricle seen on the transesophageal echocardiogram from March 2020, resolved #6. Paroxysmal atrial fibrillation #7. Hypertension #8. Hyperlipidemia #9. Chronic ongoing tobacco dependence #10. History of peripheral arterial disease status post aorto bifemoral bypass in 2004 #11. Routine postoperative ventilator management, patient was successfully weaned and extubated on postoperative day 0 on 05/24/2020 #12. Acute kidney injury, improved #13. Hyponatremia likely hypervolemic, on fluid restriction, improved Plan: Patient is doing very well, tolerating ambulation, breathing comfortable, vital signs have been stable, chest tubes have been discontinued, today's chest x-ray has been reviewed showing subsegmental atelectasis and small pleural effusions, patient is maintaining stable saturations on room air, serum sodium is improving, today's blood work has been reviewed, encourage deep breathing and coughing. Possible discharge home today pending if cleared by CT surgery, he will need outpatient follow-up in the office with Dr. Toussaint in 7-10 days. I performed a history & physical examination of the patient and discussed their management with my nurse practitioner, Deedee Turcios. I reviewed the nurse practitioner's note and agree with the documented findings and plan of care. Lung sounds are positive for clear breath sounds. The findings and the impression was discussed with the patient. I attest to the documentation by the nurse practitioner. Time with Patient: Less than 30
--- NOTE | 2020-05-29 09:59 | P.PN ---
Subjective Progress Note Date: 05/29/20 This is a pleasant 64-year-old gentleman who presented to the hospital with a non-ST elevation myocardial infarction, cardiac workup showed multivessel coronary artery disease. During that same admission patient experienced an acute ischemic stroke involving his right MCA. Transesophageal echoc ardiographic study performed at that time showed severely impaired left ventricular systolic function with an EF of 20-25%, and intracardiac thrombus. Repeat transesophageal echocardiogram in April 2020 showed improvement in left ventricular systolic function and resolution of the intracardiac thrombus. Patient was referred to CT surgery for possibility of coronary artery bypass grafting. Patient underwent off-pump CABG 4 with endovascular vein harvest and the radial harvest and occlusion of the left atrial appendage. He was seen and examined in the intensive care unit today, postoperative day 4. Sitting up in the chair at bedside, on 2 L of oxygen. Chest tubes were removed over the weekend. He is reaching 1300 on his incentive spirometry. Continues to have some fine crackles bilaterally, encouraged to continue the use of his incentive spirometry. Blood pressure 115/70 with a heart rate in the 70s. White blood cell count 11.7, hemoglobin 8.9, platelet count 138. Sodium 129, potassium 4.6, BUN 32, creatinine 0.9. 05/29/2020 Patient seen and examined this morning, sitting up in the chair at bedside. Overall doing significantly well, anticipating a possible discharge home today. A limited echocardiogram with Doppler study will be performed, if the patient's ejection fraction is less than 35%, he will require a LifeVest. Patient did have a LifeVest placed previously which she still has at home, if necessary we will have the bring that in for him. He denies any shortness of breath, no chest discomfort.blood pressure 120/70 with a heart rate of 90, afebrile.White blood cell count 11.2, hemoglobin 9.0, platelet count 161. Sodium 134, potassium 4.4, BUN 30, creatinine 0.9. Objective - Vital Signs Vital signs: Vital Signs Temp 97.6 F 05/29/20 08:00 Pulse 100 05/29/20 08:21 Resp 12 05/29/20 08:00 BP 120/72 05/29/20 08:00 Pulse Ox 93 L 05/29/20 08:00 Intake & Output 05/28/20 05/29/20 05/29/20 18:59 06:59 18:59 Intake Total 720 Output Total 1950 650 225 Balance -1230 -650 -225 Weight 80.6 kg Intake: IV 20 Sodium Chloride 0.9% 1, 20 000 ml @ 20 mls/hr IV . Q24H [facility] Rx#:[id number] Oral 700 Output: Chest Tube Drainage 0 Left Lateral Chest 0 Urine 1950 650 125 Urine/Stool Mix 100 Other: Voiding Method Bedside Commode Bedside Commode Bedside Commode # Voids 3 # Bowel Movements 2 3 1 ABP, PAP, CO, CI - Last Documented Arterial Blood Pressure 120/59 Pulmonary Artery Pressure 24/9 Cardiac Output 4.5 Cardiac Index 2.4 - Exam PHYSICAL EXAMINATION: GENERAL: She 4-year-old gentleman in no acute distress at the time of my examination HEENT: Head is atraumatic, normocephalic. Pupils equal, round. Sclera anicteric. Conjunctiva are clear. Mucous membranes of the mouth are moist. Neck is supple. There is no elevated jugular venous pressure. No carotid bruit is heard. HEART EXAMINATION: Heart S1, S2 normal. No murmur or gallop heard. CHEST EXAMINATION: Fine crackles heard to the bases bilaterally ABDOMEN: Soft, nontender. Bowel sounds are heard. No organomegaly noted. EXTREMITIES: 2+ peripheral pulses with no evidence of peripheral edema and no calf tenderness noted. NEUROLOGIC patient is awake, alert and oriented 3 . - Labs CBC & Chem 7: 05/29/20 04:03 05/29/20 04:03 Labs: Abnormal Lab Results - Last 24 Hours (Table) 05/28/20 05/28/20 05/28/20 Range/Units 11:53 16:56 20:15 WBC (3.8-10.6) k/uL RBC (4.30-5.90) m/uL Hgb (13.0-17.5) gm/dL Hct (39.0-53.0) % Sodium (137-145) mmol/L BUN (9-20) mg/dL Glucose (74-99) mg/dL POC Glucose (mg/dL) 123 H 122 H 117 H (75-99) mg/dL 05/29/20 05/29/20 05/29/20 Range/Units 04:03 04:03 06:44 WBC 11.2 H (3.8-10.6) k/uL RBC 3.06 L (4.30-5.90) m/uL Hgb 9.0 L (13.0-17.5) gm/dL Hct 27.9 L (39.0-53.0) % Sodium 134 L (137-145) mmol/L BUN 30 H (9-20) mg/dL Glucose 107 H (74-99) mg/dL POC Glucose (mg/dL) 111 H (75-99) mg/dL Assessment and Plan Plan: Assessment and plan #1. Symptomatic multivessel coronary artery disease, status post four-vessel coronary artery bypass grafting with BERNARDO to the LAD, radial arterial graft to intermediate coronary artery, SVG to the diagonal, SVG to the RCA, with left radial artery harvest, left leg endoscopic vein harvest, and exclusion of the left atrial appendage, postoperative day 4 #2. Recent history of non-ST elevated myocardial infarction in March 2020 #3. Recent history of ischemic stroke involving the right MCA in March 2020 #4. Severe ischemic cardiomyopathy with EF of 20-25%, with the recent documented improvement up to 40% on most recent transesophageal echocardiogram #5. Intracardiac thrombus in the left ventricle seen on the transesophageal echocardiogram from March 2020, resolved #6. Paroxysmal atrial fibrillation #7. Hypertension #8. Hyperlipidemia #9. Chronic ongoing tobacco dependence #10. History of peripheral arterial disease status post aorto bifemoral bypass in 2004 Plan Patient's current medications have been reviewed, we will continue with same. a limited echocardiogram with Doppler study will be performed today. If the patient's ejection fraction is less than 35%, patient will need to have a LifeVest. Patient does have his LifeVest at home which was placed previously. Plan is for the patient to be discharged home later today. DNP note has been reviewed, I agree with a documented findings and plan of care. Patient was seen and examined.
--- NOTE | 2020-05-29 11:00 | ECHOF ---
Referral Reason:assess LV function MEASUREMENTS -------- HEIGHT: 167.6 cm WEIGHT: 80.3 kg BP: 123/75 LVLd A4C: 8.2 cm LVEDV MOD A4C: 206 ml LVLs A4C: 7.9 cm LVESV MOD A4C: 152 ml LVEF MOD A4C: 26 % SV MOD A4C: 54 ml LVLd A2C: 6.9 cm LVEDV MOD A2C: 95 ml LVLs A2C: 7.6 cm LVESV MOD A2C: 78 ml LVEF MOD A2C: 19 % SV MOD A2C: 18 ml EF Biplane: 26 % LVEDV MOD BP: 151 ml LVESV MOD BP: 111 ml FINDINGS -------- Limited Study Overall left ventricular systolic function is severely impaired with, an EF between 25 - 30 %. The basal to mid anterolateral and apical lateral wall are akinetic however does not appear scarred. The basal to apical anterior and basal to mid anteroseptum are hypokinetic. The inferior wall appears t o be functioning normally. There is mild aortic valve sclerosis. There is mild aortic regurgitation. The mitral valve leaflets are mildly thickened. Mild mitral regurgitation is present. There is no pericardial effusion. CONCLUSIONS -------- 1. Overall left ventricular systolic function is severely impaired with, an EF between 25 - 30 %. 2. The basal to mid anterolateral wall is akinetic however does not appear scarred. The basal to api shital anterior and basal anteroseptum are hypokinetic. The inferior wall appears to be functioning nor pan. 3. There is mild aortic valve sclerosis. 4. There is mild aortic regurgitation. 5. The mitral valve leaflets are mildly thickened. 6. Mild mitral regurgitation is present. 7. There is no pericardial effusion. OPERATIONS STAFF SPECIALIST SECURITY: Jasmin Romo RDCS
[2020-05-29] MEDS ORDERED: lisinopriL 5 MG TAB PO SCH (12:00)
[2020-05-29 12:16] LABS: Glucose,Whole Blood 109 mg/dL (75-99)
[2020-05-29 12:18] VITALS: BP 127/67; PULSE 80; RESP 14; TEMP 97.4
[2020-05-29] MEDS: amLODIPine 5 MG TAB PO SCH (12:19)
--- NOTE | 2020-05-29 23:25 | P.PN ---
Progress Note - Text Progress Note Date: 05/29/20 - Chief Complaint CABG Consultation: This is a pleasant 64-year-old patient whose PCP is Dr. Rosalino Mcallister. Chronic stable medical conditions include coronary artery disease, left arm weakness from prior stroke, CHF, [that is no left ventricular thrombus on no prior KASSIE], diverticulosis. Underwent four-vessel coronary bypass Today-feeling much improved. Ambulating. Breathing well. Oral intake good.. Review of systems: Was done for constitutional, cardiovascular, GI, pulmonary. relevant finding as above Current medication today did electronic records reviewed Physical examination: VITAL SIGNS: 97.4, 80, 14, 127/67, 93% room air GENERAL: sitting up, comfortable EYES: [Pupils equal. Conjunctiva pale HEENT: External appearance of nose and ears normal, oral cavity grossly normal. NECK: JVD unable to assess; masses not palpable. HEART: First and second heart sounds are normal; mild edema. LUNGS: Respiratory rate increased decreased breath sounds. ABDOMEN: Soft, nontender, liver spleen not palpable, no masses palpable. PSYCH: Alert and oriented x3; mood and affect normal. INVESTIGATIONS, reviewed in the clinical context: White count 11.2 hemoglobin 9 sodium 134 potassium 4.4 creatinine 0.96 Previous testing White count 14.8 hemoglobin 10.2 platelets 117 potassium 4.4 creatinine 0.89 Preoperative labs: White count 10.1 hemoglobin 14.5 platelets 163 COVID 19 P/Cr-not detected Chest x-ray showing-atelectasis chest tubes Assessment: -CABG, 4 vessels -Coronary artery disease -Chronic diverticulosis -Chronic congestive congestive heart failure EF 20-25% -Acute postprocedure blood loss anemia, expected from surgery -Dilutional thrombocytopenia -Acute kidney injury likely prerenal from diuresis. Creatinine is gone from 0.8-1.29 -Mild hyponatremia -Leukocytosis likely reactive. No clinical evidence of infection Plan: Doing well. Continue current medication. If discharged to follow-up his family doctor. Thank you Dr. Gleason
--- NOTE | 2020-05-30 01:24 | CDI ---
Documentation Clarification Form Date: 05/30/2020 From: Valentino Gregory Phone: If you have a question about this query, please contact Karlene Marino Network Relations Consultant at [phone] between 8am and 5pm. Admit Date: 05/24/2020 Discharge Date: 05/29/2020 Patient Name: Narayan Barnard Visit Number: [id number] ATTENTION: The Clinical Documentation Specialists (CDI) and [facility] Coding Staff appreciate your assistance in clarifying documentation. Please respond to the clarification below the line at the bottom and electronically sign. The CDI & [facility] Coding staff will review the response and follow-up if needed. Please note: Queries are made part of the Legal Health Record. If you have any questions, please contact the author of this message via ITS. Dear Phi Norris MD., CHF is documented in throughout documentation as chronic systolic heart failure. History/Risk Factors: Atrial fibrillation, PVD, Hyperlipidemia VS/Pulse OX: Temp 98.6 F 05/26/20 04:00 Pulse 98 05/26/20 08:04 Resp 28 H 05/26/20 07:00 BP 127/73 05/25/20 06:00 Pulse Ox 97 05/26/20 07:00 Echocardiogram Results: Overall left ventricular systolic function is severely impaired with, an EF between 25 - 30 %. Chest X Ray: Postoperative change, cardiomegaly and persistent bilateral infiltrate and pleural effusion stable. Treatment: Will give 20 mg IV push Lasix today In your professional opinion, can you please clarify the acuity and type of CHF if known? Systolic Heart Failure: Acute Chronic Acute on Chronic Unable to Determine Other, please specify chronic CHF MTDD
--- NOTE | 2020-05-30 10:20 | P.DS ---
Providers Date of admission: 05/24/20 05:32 Expected date of discharge: 05/29/20 Attending physician: Oliver Gleason Consults: 05/24/20 12:52 Consult Physician Routine Consulting Provider: Christin Boyle Consult Reason/Comments: Child Day Care Provider Consult: post cardiac surgery Do you want consulting provider notified?: Yes Consult Physician Routine Consulting Provider: Guillermo Macias Consult Reason/Comments: Rfid Engineer Consult: post cardiac surgery Do you want consulting provider notified?: Yes Consult Physician Routine Consulting Provider: Rafi Steward Consult Reason/Comments: med mgmt; [facility] patient Do you want consulting provider notified?: Yes Primary care physician: Rosalino Yee [place] [facility] Course: FINAL DIAGNOSIS: 1. Multivessel coronary artery disease 2. Recent non-STEMI 3. Chronic systolic heart failure/ischemic cardiomyopathy with most recent EF 25-30% 4. Previous left ventricular thrombus 5. Moderate mitral valve regurgitation 6. Recent ischemic stroke with some residual left-sided weakness 7. History of paroxysmal atrial fibrillation, currently sinus rhythm 8. History of hypertension 9. Hyperlipidemia, cholesterol 243, LDL 185 10. Chronic and ongoing tobacco dependence with FEV1 111% of predicted 11. Peripheral arterial disease status post aortobifemoral bypass in 2004 12. Postoperative acute blood loss anemia and thrombocytopenia, expected, delusional PRINCIPAL PROCEDURE: 1. Off-pump coronary artery bypass graft 4, left internal mammary artery to the left anterior descending artery, reverse saphenous vein graft from the aorta to the right coronary artery, radial artery to the intermediate coronary artery, and reverse saphenous vein graft from the aorta to the first diagonal branch 2. Endovascular left greater saphenous vein harvest from the ankle to the thigh 3. Left radial artery harvest 4. Occlusion of the left atrial appendage with a 35 mm AtriCure clip HISTORY OF PRESENT ILLNESS: This is a 64-year-old gentleman who previously did not follow with a primary care physician on a regular basis. He was initially seen in the hospital in March 2020 with presentation to the hospital positive for congestive heart failure. During that admission he developed signs and symptoms of right hemispheric stroke involving weakness of the left hand and forearm. He underwent cardiac catheterization during that stay due to abnormal EKG and was found to have severe triple-vessel coronary artery disease with occlusion of the right coronary artery proximally with reconstitution distally with collateral circulation, small circumflex coronary artery system which was diffusely diseased, large intermediate branch which had 99% stenosis with DIMAS 2 flow in the distal vessel, and large dominant LAD which wrapped around the apex and had a complex proximal lesion of 80-90%. There were some distal inferior wall branches demonstrated on the left side which may have been distal branches of the circumflex coronary artery or the right coronary artery which were filling via collaterals and were hard to define. During that admission he also had an echocardiogram which suggested left ventricular thrombus, ejection fraction 20% or below with global hypokinesia, and moderate mitral regurgitation. Consultation was placed to Dr. Gleason at that time for surgical recommendations. Decision was made to allow for recovery from stroke and to repeat a transesophageal echocardiogram to re-evaluate the ventricular function, ventricular thrombus, as well as mitral valve. He was discharged to home with a LifeVest in place. Transesophageal echocardiogram was completed April 26 demonstrating improvement in the LV function with ejection fraction 40-45%, resolution of the left ventricular thrombus, and mild mitral regurgitation. The patient did follow up with Dr. Gleason and he was recommended to undergo coronary artery bypass surgery. The usual perioperative course was discussed in detail with the patient and his family, all risks and benefits were explained, all questions were answered, and consent was obtained to proceed with surgery. The patient was scheduled for surgery at the earliest possible date. HOSPITAL COURSE: The patient was brought to the hospital on 05/24/2020, taken to the preoperative area, prepared in the usual fashion, and subsequently taken to the operating room where Dr. Gleason performed an off-pump four-vessel CABG. Upon completion of surgery the patient was transferred to the cardiovascular intensive care unit where he was recovered and monitored hemodynamically. He was extubated, all lines, tubes, and drips were discontinued when appropriate, and transfer orders were placed for 3 S. cardiac stepdown unit, however there was no bed availability and the patient remained on ICU as a stepdown patient until discharge. His oxygen was titrated down, he continued to work with physical and occupational therapy, he was tolerating oral diet, his pain was controlled without narcotics, and he was ready to be discharged to home with [facility] care on postoperative day #5. Follow up limited echocardiogram was completed to determine if patient needed to be sent home with a LifeVest, the surface echo demonstrated impaired LV systolic function with EF 25-30%, and the patient was instructed to resume use of his LifeVest until discontinued by cardiology. He received written and verbal instruction regarding his medications, activity restrictions, signs and symptoms requiring physician notification, and follow-up appointments. COMPLICATIONS: The patient experienced postoperative acute blood loss anemia and thrombocytopenia which are expected outcomes of surgery requiring no intervention. Patient Condition at Discharge: Stable Plan - Discharge Summary Discharge Rx Participant: No New Discharge Prescriptions: New Aspirin 325 mg PO DAILY #30 tab Metoprolol Tartrate [Lopressor] 50 mg PO BID #60 tab amLODIPine [Norvasc] 5 mg PO DAILY@1200 #30 tab Pantoprazole [Protonix] 40 mg PO AC-BRKFST #30 tablet.dr BloomDocusate Sodium [Senokot-S] 2 each PO HS PRN tab PRN Reason: Constipation Acetaminophen Tab [Tylenol] 1,000 mg PO Q6HR PRN tab PRN Reason: Fever and/ or MILD Pain lisinopriL [Zestril] 5 mg PO DAILY@1200 #30 tab Continue Clopidogrel [Plavix] 75 mg PO DAILY #30 tab Atorvastatin [Lipitor] 40 mg PO QAM Discontinued Aspirin 81 mg PO DAILY #30 chew Apixaban [Eliquis] 5 mg PO BID #30 tab lisinopriL [Zestril] 20 mg PO QAM carvediloL [Coreg] 6.25 mg PO BID Discharge Medication List Clopidogrel [Plavix] 75 mg PO DAILY #30 tab 04/01/20 [Rx] Atorvastatin [Lipitor] 40 mg PO QAM 05/17/20 [History] Acetaminophen Tab [Tylenol] 1,000 mg PO Q6HR PRN tab 05/29/20 [Rx] Aspirin 325 mg PO DAILY #30 tab 05/29/20 [Rx] Metoprolol Tartrate [Lopressor] 50 mg PO BID #60 tab 05/29/20 [Rx] Pantoprazole [Protonix] 40 mg PO AC-BRKFST #30 tablet. 05/29/20 [Rx] Sennoanand-Docusate Sodium [Senokot-S] 2 each PO HS PRN tab 05/29/20 [Rx] amLODIPine [Norvasc] 5 mg PO DAILY@1200 #30 tab 05/29/20 [Rx] lisinopriL [Zestril] 5 mg PO DAILY@1200 #30 tab 05/29/20 [Rx] Follow up Appointment(s)/Referral(s): [facility] [NON-STAFF] - 4 Weeks (You will be called for evaluation for cardiac rehab approximately 4-6 weeks after surgery) Chandler Raza DO [STAFF PHYSICIAN] - 06/06/20 2:30 pm Kaycee Churchill NPC [Nurse Practitioner] - 06/28/20 2:30 pm Rosalino Mcallister MD [Primary Care Provider] - 06/14/20 10:15 am Oliver Gleason MD [STAFF PHYSICIAN] - 06/21/20 9:30 am Deyvi Moore NPC [Nurse Practitioner] - 06/04/20 11:15 am [facility], [NON-STAFF] - Ambulatory/Diagnostic Orders: Complete Blood Count w/diff [LAB.AMB] Time Frame: 3 Days, Location: None Selected Comprehensive Metabolic Panel [LAB.AMB] Time Frame: 3 Days, Location: None Selected Patient Instructions/Handouts: CABG (Coronary Artery Bypass Graft) (DC) Activity/Diet/Wound Care/Special Instructions: DISCHARGE INSTRUCTIONS: 1. No driving for 4 weeks, or until physician gives their ok. 2. The patient should sleep in their own bed, no medical bed needed. 3. Stairs are not an issue. If the bedroom is upstairs, it is advised that the patient go up at night and down in the morning for the first week. Go slowly, using handrail and take 1 step at a time. 4. EULOGIO hose are to be worn for 30 days or until physician discontinues. 5. Heart hugger is to be worn 100% of the time until physician discontinues.(except when showering) 6. No lifting, pushing, or pulling more than 10 pounds for 12 weeks. The physician will advise of any restriction changes. 7. The patient is expected to continue the prescribed walking program. 8. Continue pain control per as needed orders. 9. Continue with incentive spirometry and splinting/heart hugger until otherwise directed by the physician. 10. Must shower daily using liquid antibacterial soap and a separate white washcloth for each individual incision. 11. Routine sternal incision care. No powders, lotions, ointments on incisions. No dressings are necessary on incisions unless they are draining. Dermabond tape is to remain on sternal incision until surgeon follow-up. 12. Please call surgeon/CORROSION PREVENTION METAL SPRAYER for temp greater than 101 F or purulent drainage from incisions. 13. All prescriptions given by surgeon for 30 days. Refills need to be filled through gift shop clerk/primary care physician. 14. A Red armband has been placed on the patient. It should be worn for 30 days post surgery and will be removed by the cardiac surgeons. If an ER visit is necessary, please make sure the number on the Red armband is called. 15. You have been referred to and are expected to begin Cardiac Rehab in approximately 4-6 weeks. 16. Patient needs to wear life vest until discontinued by Dr. Raza [facility] TO PROVIDE: RN SKILLED HOME CARE SERVICES FOR POST-OP SURGICAL PATIENTS WITH THE FOLLOWING: Coronary Artery Bypass Surgery (CABG), Mitral Valve Replacement/Repair ( MVR), Aortic Valve Replacement/Repair (AVR) RN TO CONTINUE EDUCATION FROM ``ROAD TO A HEALTH HEART PATIENT EDUCATION MANUAL (GIVEN TO PATIENT IN THE HOSPITAL) MEDICATION RECONCILIATION WITH EDUCATION NEEDED ON FIRST HOME VISIT EMPHASIZE IMPORTANCE OF WEARING BREAST SUPPORT/HEART HUGGER ENCOURAGE USE OF INCENTIVE SPIROMETER 10 X EVERY HOUR WHILE AWAKE ENCOURAGE UTILIZATION OF LOWER EXTREMITY COMPRESSION STOCKINGS/EULOGIO HOSE and ELEVATE LEGS ABOVE LEVEL OF HEART WHILE AT REST. ENCOURAGE AMBULATION 3-5x/day INCREASING TOLERATES, WHILE AVOIDING EXTREMES IN TEMPERATURE FREQUENCY: RN TO OPEN THE PATIENT WITHIN 24 HOURS OF DISCHARGE FROM THE HOSPITAL WITH TELEHEALTH INSTALLED AT [facility] [place] [facility] [place], RN TO VISIT 2-3 X A WEEK FOR 4 WEEKS ESTABLISHED BY PATIENT NEEDS. LABORATORY: CBC, CMP TO BE DRAWN ON THE THIRD DAY HOME, (RAN STAT) FAX RESULTS TO [phone]. TELEHEALTH PARAMETERS: WEIGHT: NOTIFY MD OF WEIGHT GAIN OF 2 LBS IN 24 HOURS OR 5 LBS IN ONE WEEK HR: NOTIFY MD OF HR <55 BPM OR HR>100 BPM BP: NOTIFY MD IF BP <90/55 OR BP>140/100 O2 SAT: NOTIFY MD IF PO2<93% ON ROOM AIR SEND TELEHEALTH REPORT TO SEPARATOR INSERTER AND CARDIOVASCULAR SURGEON THE FIRST WEEK OF CARE AND THEN BI-WEEKLY. PLEASE ADDITIONALLY COMMUNICATE ANY ABNORMALS AND NEW FINDINGS TO THE SURGEONS OFFICE. For any questions or concerns please call steam press operator Alba @ or Rakesh @ Discharge Disposition: HOME WITH HOME HEALTH SERVICES
== END 2020-05-29 15:29 | disposition home health service (06) | DRG 236 ==
LOC: 2ORMAIN 05:32 → 2SICU 12:48
PROVIDERS: ADMIT Thoracic Surgery (Cardiothoracic Vascular Surgery); ATTEND Thoracic Surgery (Cardiothoracic Vascular Surgery)
PROC: 06BQ4ZZ Excision of Left Saphenous Vein, Percutaneous Endoscopic Approach (ICD-10-PCS; principal; 2020-05-24 08:00)
PROC: 02100A3 Bypass Coronary Artery, One Artery from Coronary Artery with Autologous Arterial Tissue, Open Approach (ICD-10-PCS; principal; 2020-05-24 08:00)
PROC: 02100Z9 Bypass Coronary Artery, One Artery from Left Internal Mammary, Open Approach (ICD-10-PCS; principal; 2020-05-24 08:00)
PROC: 0211093 Bypass Coronary Artery, Two Arteries from Coronary Artery with Autologous Venous Tissue, Open Approach (ICD-10-PCS; principal; 2020-05-24 08:00)
PROC: 03BC0ZZ Excision of Left Radial Artery, Open Approach (ICD-10-PCS; principal; 2020-05-24 08:00)
PROC: 02L70CK Occlusion of Left Atrial Appendage with Extraluminal Device, Open Approach (ICD-10-PCS; principal; 2020-05-24 08:00)
PROC: 5A1935Z Respiratory Ventilation, Less than 24 Consecutive Hours (ICD-10-PCS; 2020-05-24 08:00)
DX: I25.10 Atherosclerotic heart disease of native coronary artery without angina pectoris (principal); E87.1 Hypo-osmolality and hyponatremia; I50.22 Chronic systolic (congestive) heart failure; I69.354 Hemiplegia and hemiparesis following cerebral infarction affecting left non-dominant side; D62 Acute posthemorrhagic anemia; J98.11 Atelectasis; N17.9 Acute kidney failure, unspecified; E78.5 Hyperlipidemia, unspecified; F17.200 Nicotine dependence, unspecified, uncomplicated; I25.5 Ischemic cardiomyopathy; I48.0 Paroxysmal atrial fibrillation; I11.0 Hypertensive heart disease with heart failure; I51.3 Intracardiac thrombosis, not elsewhere classified; I73.9 Peripheral vascular disease, unspecified; T50.2X5A Adverse effect of carbonic-anhydrase inhibitors, benzothiadiazides and other diuretics, initial encounter; D72.829 Elevated white blood cell count, unspecified; K57.90 Diverticulosis of intestine, part unspecified, without perforation or abscess without bleeding; D69.59 Other secondary thrombocytopenia; I34.0 Nonrheumatic mitral (valve) insufficiency; I25.2 Old myocardial infarction; Z98.890 Other specified postprocedural states; Z82.5 Family history of asthma and other chronic lower respiratory diseases; Z82.49 Family history of ischemic heart disease and other diseases of the circulatory system; Z90.89 Acquired absence of other organs; Z79.82 Long term (current) use of aspirin; Z79.01 Long term (current) use of anticoagulants; Z79.02 Long term (current) use of antithrombotics/antiplatelets; Z79.899 Other long term (current) drug therapy; Z88.1 Allergy status to other antibiotic agents; Z86.79 Personal history of other diseases of the circulatory system
CPT/HCPCS: 36600; 71045; 71046; 80048; 80053; 82330; 82805; 83735; 85025; 85027; 85520; 85610; 85730; 86850; 86891; 86900; 86901; 86920; 93308; 94002; 94640

== ENCOUNTER 2020-07-25 00:34 | Inpatient (IN) | payer BC ==
[2020-07-25] MEDS ORDERED: ETOMIDATE 2 MG/ML 10 ML VIAL IVP STA (00:44)
[2020-07-25] MEDS ORDERED: SUCCINYLCHOLINE CHLORIDE VIAL 200 MG/10 ML VIAL IV STA (00:44)
[2020-07-25] MEDS: LORazepam 2 MG/ML INJ IV STA ×2 (00:52→01:36)
--- NOTE | 2020-07-25 00:52 | ED ---
CPR HPI - General Chief Complaint: Cardiac Arrest/CPR Stated Complaint: Cardiac Arrest Time Seen by Provider: 07/25/20 00:34 Source: EMS Mode of arrival: EMS Limitations: altered mental status, physical limitation (Patient is an embedded) - History of Present Illness MD Complaint: collapsed during rest Onset/Timin -: hour(s) Place: home Shock Advised: Yes Initial Findings in the Field: unresponsive, VTACH/VFIB ROSC in the Field: No Associated Injuries: No Treatments Prior to Arrival: other airway device, chest compressions, defibrillated shocks #, epinephrine mgs # (5) - Related Data Home Medications Medication Instructions Recorded Confirmed Atorvastatin [Lipitor] 40 mg PO QAM 05/17/20 07/25/20 Sennosides-Docusate Sodium 2 tab PO HS PRN 07/25/20 07/25/20 [Senokot-S] Previous Rx's Medication Instructions Recorded Clopidogrel [Plavix] 75 mg PO DAILY #30 tab 04/01/20 Acetaminophen Tab [Tylenol] 1,000 mg PO Q6HR PRN tab 05/29/20 Aspirin 325 mg PO DAILY #30 tab 05/29/20 Metoprolol Tartrate [Lopressor] 50 mg PO BID #60 tab 05/29/20 Pantoprazole [Protonix] 40 mg PO AC-BRKFST #30 tablet. 05/29/20 amLODIPine [Norvasc] 5 mg PO DAILY@1200 #30 tab 05/29/20 lisinopriL [Zestril] 5 mg PO DAILY@1200 #30 tab 05/29/20 Allergies Allergy/AdvReac Type Severity Reaction Status Date / Time Tetracyclines Allergy "made me Verified 07/25/20 08:37 sleep for a week" Review of Systems ROS Statement: Those systems with pertinent positive or pertinent negative responses have been documented in the HPI. ROS Other: All systems not noted in ROS Statement are negative. Limitations: ROS unobtainable due to patients medical condition (Patient unable to give history) Past Medical History Past Medical History: Coronary Artery Disease (CAD), Heart Failure, CVA/TIA, Myocardial Infarction ([place]) Additional Past Medical History / Comment(s): hospitalized 03/29/20 with stroke with left hand weakness, CHF, episode of a -fib , Left ventricular thrombus., previous cva's found on testing., Hx of AAA repair 2004 and due to stents he is unable to have MRI greater than 3.5*. , tinnitus , hx diverticulitis. Last Myocardial Infarction Date:: 03/29/20 History of Any Multi-Drug Resistant Organisms: None Reported Past Surgical History: Heart Catheterization, Orthopedic Surgery, Tonsillectomy Additional Past Surgical History / Comment(s): bypass sx in left leg, AAA repair 2004, jason carpal tunnel, rt hand X2, KASSIE. Past Anesthesia/Blood Transfusion Reactions: No Reported Reaction Additional Past Anesthesia/Blood Transfusion Reaction / Comment(s): . Past Psychological History: No Psychological Hx Reported Smoking Status: Former smoker Past Alcohol Use History: None Reported Past Drug Use History: None Reported - Past Family History Mother Family Medical History: COPD Father Additional Family Medical History / Comment(s): from Brain aneurysm family Family Medical History: No Reported History General Exam Limitations: altered mental status, physical limitation (Intubated) General appearance: obtunded Head exam: Present: atraumatic, normocephalic Eye exam: Present: normal appearance, PERRL. Absent: scleral icterus, conjunctival injection, periorbital swelling, periorbital tenderness ENT exam: Present: other (There is a Rj tube in the oropharynx with a bite block.) Neck exam: Present: normal inspection, other (No bony deformity or step-off). Absent: tenderness Respiratory exam: Present: rhonchi (Scattered rhonchi during bagging). Absent: wheezes, rales, stridor Cardiovascular Exam: Present: regular rate, normal rhythm, normal heart sounds, other (Palpable carotid and femoral pulses). Absent: systolic murmur, diastolic murmur, rubs, gallop GI/Abdominal exam: Present: soft. Absent: distended, tenderness, guarding, rebound, mass Extremities exam: Present: normal inspection, normal capillary refill. Absent: pedal edema Back exam: Present: normal inspection, other (No apparent bony deformity or step-off) Neurological exam: Present: altered, CN II-XII intact, reflexes normal, other (The initial GCS is 7 (E=1, V=1, M=5)) Skin exam: Present: warm, dry, intact, mottled Course Vital Signs 07/25/20 07/25/20 07/25/20 00:56 01:00 01:05 Temperature 97.6 F Pulse Rate 71 79 93 Respiratory 24 26 H 24 Rate Blood Pressure 156/91 105/71 119/80 O2 Sat by Pulse 93 L 95 94 L Oximetry 07/25/20 07/25/20 07/25/20 01:10 01:15 01:25 Temperature Pulse Rate 86 85 Respiratory 18 Rate Blood Pressure 124/77 116/70 117/73 O2 Sat by Pulse 93 L 95 95 Oximetry 07/25/20 07/25/20 07/25/20 01:30 01:35 01:40 Temperature Pulse Rate 89 90 86 Respiratory 16 31 H 33 H Rate Blood Pressure 117/73 176/96 133/77 O2 Sat by Pulse 93 L 94 L 93 L Oximetry 07/25/20 07/25/20 07/25/20 01:45 01:49 01:50 Temperature Pulse Rate 86 82 Respiratory 31 H 16 31 H Rate Blood Pressure 111/65 103/64 O2 Sat by Pulse 92 L 92 L Oximetry 07/25/20 07/25/20 07/25/20 01:55 02:00 02:05 Temperature Pulse Rate 81 83 90 Respiratory 24 31 H 30 H Rate Blood Pressure 94/60 94/59 91/62 O2 Sat by Pulse 93 L 93 L 93 L Oximetry 07/25/20 07/25/20 07/25/20 02:10 02:15 02:20 Temperature Pulse Rate 80 79 77 Respiratory 22 29 H 28 H Rate Blood Pressure 132/105 102/63 97/68 O2 Sat by Pulse 94 L 93 L 94 L Oximetry 07/25/20 07/25/20 07/25/20 02:25 02:30 02:35 Temperature Pulse Rate 85 80 78 Respiratory 26 H 27 H 28 H Rate Blood Pressure 97/61 147/90 109/64 O2 Sat by Pulse 95 95 93 L Oximetry 07/25/20 07/25/20 07/25/20 02:40 02:45 02:50 Temperature Pulse Rate 75 77 76 Respiratory 27 H 25 H 27 H Rate Blood Pressure 97/65 94/59 93/62 O2 Sat by Pulse 93 L 95 96 Oximetry 07/25/20 07/25/20 07/25/20 02:55 03:00 03:05 Temperature Pulse Rate 76 77 73 Respiratory 25 H 25 H 24 Rate Blood Pressure 94/63 91/58 91/58 O2 Sat by Pulse 97 96 98 Oximetry 07/25/20 07/25/20 07/25/20 03:10 03:15 03:20 Temperature Pulse Rate 74 73 72 Respiratory 26 H 25 H 25 H Rate Blood Pressure 92/61 100/63 93/66 O2 Sat by Pulse 99 98 100 Oximetry 07/25/20 07/25/20 07/25/20 03:25 03:30 03:35 Temperature Pulse Rate 71 70 71 Respiratory 26 H 26 H 25 H Rate Blood Pressure 94/60 102/63 98/68 O2 Sat by Pulse 100 100 99 Oximetry 07/25/20 07/25/20 07/25/20 03:40 03:45 03:50 Temperature Pulse Rate 70 69 69 Respiratory 24 23 23 Rate Blood Pressure 95/60 96/62 98/62 O2 Sat by Pulse 100 100 100 Oximetry 07/25/20 07/25/20 07/25/20 03:55 04:00 04:05 Temperature Pulse Rate 69 69 70 Respiratory 24 23 24 Rate Blood Pressure 97/68 101/66 97/65 O2 Sat by Pulse 100 100 100 Oximetry 07/25/20 07/25/20 07/25/20 04:10 04:15 04:20 Temperature Pulse Rate 70 69 70 Respiratory 24 23 24 Rate Blood Pressure 95/63 102/63 100/64 O2 Sat by Pulse 98 Oximetry 07/25/20 07/25/20 07/25/20 04:25 04:30 04:35 Temperature Pulse Rate 74 70 72 Respiratory 26 H 23 25 H Rate Blood Pressure 106/64 105/69 107/68 O2 Sat by Pulse 98 96 98 Oximetry 07/25/20 07/25/20 07/25/20 04:40 04:45 04:50 Temperature Pulse Rate 72 71 73 Respiratory 23 23 24 Rate Blood Pressure 109/68 110/70 111/68 O2 Sat by Pulse 96 95 98 Oximetry 07/25/20 07/25/20 07/25/20 04:55 05:00 05:05 Temperature Pulse Rate 71 73 72 Respiratory 20 23 22 Rate Blood Pressure 112/70 107/64 114/68 O2 Sat by Pulse 95 97 99 Oximetry 07/25/20 07/25/20 07/25/20 05:10 05:15 05:20 Temperature Pulse Rate 77 73 74 Respiratory 26 H 18 26 H Rate Blood Pressure 114/73 119/71 126/72 O2 Sat by Pulse 96 97 98 Oximetry 07/25/20 07/25/20 07/25/20 05:25 05:30 05:35 Temperature Pulse Rate 75 75 81 Respiratory 27 H 18 13 Rate Blood Pressure 119/72 122/71 133/78 O2 Sat by Pulse 96 95 Oximetry 07/25/20 07/25/20 07/25/20 05:40 05:45 05:50 Temperature Pulse Rate 75 87 79 Respiratory 24 28 H 21 Rate Blood Pressure 132/88 121/81 142/82 O2 Sat by Pulse Oximetry 07/25/20 07/25/20 07/25/20 05:55 06:00 06:05 Temperature Pulse Rate 75 73 74 Respiratory 24 23 23 Rate Blood Pressure 126/72 121/65 113/77 O2 Sat by Pulse 97 94 L 97 Oximetry 07/25/20 07/25/20 07/25/20 06:10 06:15 06:20 Temperature Pulse Rate 75 75 74 Respiratory 23 21 21 Rate Blood Pressure 109/63 108/65 107/59 O2 Sat by Pulse 98 95 95 Oximetry 07/25/20 07/25/20 07/25/20 06:25 06:30 06:35 Temperature Pulse Rate 75 74 75 Respiratory 22 21 21 Rate Blood Pressure 109/67 111/67 112/68 O2 Sat by Pulse 95 96 95 Oximetry 07/25/20 07/25/20 07/25/20 06:37 07:00 07:10 Temperature 97.7 F Pulse Rate 65 74 Respiratory 19 16 Rate Blood Pressure 120/67 120/69 O2 Sat by Pulse 97 100 Oximetry 07/25/20 07/25/20 07/25/20 07:30 08:00 08:01 Temperature Pulse Rate 74 77 75 Respiratory 19 24 16 Rate Blood Pressure 102/85 118/69 127/71 O2 Sat by Pulse 100 100 Oximetry 07/25/20 07/25/20 07/25/20 08:30 09:00 09:30 Temperature 97.4 F L Pulse Rate 76 74 76 Respiratory 25 H 21 26 H Rate Blood Pressure 127/71 125/83 125/69 O2 Sat by Pulse 94 L 95 100 Oximetry 07/25/20 07/25/20 07/25/20 10:00 10:30 10:45 Temperature Pulse Rate 75 77 78 Respiratory 25 H 25 H 16 Rate Blood Pressure 122/68 124/72 124/73 O2 Sat by Pulse 99 99 97 Oximetry 07/25/20 07/25/20 07/25/20 11:00 11:30 12:00 Temperature Pulse Rate 76 78 77 Respiratory 23 24 35 H Rate Blood Pressure 124/73 127/71 127/72 O2 Sat by Pulse 96 100 85 L Oximetry 07/25/20 07/25/20 07/25/20 12:30 12:53 13:00 Temperature Pulse Rate 78 80 76 Respiratory 28 H 16 21 Rate Blood Pressure 137/76 145/76 145/76 O2 Sat by Pulse 97 98 Oximetry 07/25/20 07/25/20 07/25/20 13:30 13:56 13:57 Temperature 97.6 F 97.6 F Pulse Rate 82 78 77 Respiratory 24 16 16 Rate Blood Pressure 134/73 144/74 134/76 O2 Sat by Pulse 100 98 98 Oximetry 07/25/20 14:00 Temperature Pulse Rate 76 Respiratory 21 Rate Blood Pressure 134/76 O2 Sat by Pulse 99 Oximetry - Reevaluation(s) Reevaluation #1: 07/25/20 02:01 The patient's arrived and provided history that she had been sleeping and heard the patient make funny noises and she found him unresponsive. She called EMS and began to perform CPR. Procedures - Intubation Sedative: Etomidate Paralytic: Succinylcholine Laryngoscope: Shan Size: 3 ET Tube Size: 8.5 ET Tube Uncuffed: No Tube Secured Depth (cm): 24 Tube Secured Location: teeth Tube Placement Confirmation: visualized tube passing through cords, equal breath sounds bilaterally, no breath sounds over epigastrium, confirmation by capnometry Patient Tolerated Procedure: well, no complications Intubation Complications: none Medical Decision Making - Medical Decision Making Patient is 65-year-old man brought by EMS after he had become unresponsive at home. He initially had ventricular fibrillation on their monitor. On arrival here he has ROSC. Additionally patient's reports that he had a life vest at home but was not wearing it at the time. The patient does have neurologic signs of life. Did attempt to pull at the ET tube. Case is discussed with Dr. Macias and Dr. Boyle - Lab Data Result diagrams: 07/30/20 04:11 07/30/20 07:13 Lab Results 12/16/20 12/16/20 12/16/20 Range/Units 00:35 00:51 00:51 WBC 15.0 H (3.8-10.6) k/uL RBC 4.67 (4.30-5.90) m/uL Hgb 14.3 D (13.0-17.5) gm/dL Hct 46.1 (39.0-53.0) % MCV 98.7 (80.0-100.0) fL MCH 30.5 (25.0-35.0) pg MCHC 30.9 L (31.0-37.0) g/dL RDW 14.0 (11.5-15.5) % Plt Count 155 (150-450) k/uL MPV 8.0 Neutrophils % 44 % Lymphocytes % 41 % Monocytes % 7 % Eosinophils % 3 % Basophils % 2 % Neutrophils # 6.6 (1.3-7.7) k/uL Lymphocytes # 6.1 H (1.0-4.8) k/uL Monocytes # 1.1 H (0-1.0) k/uL Eosinophils # 0.5 (0-0.7) k/uL Basophils # 0.3 H (0-0.2) k/uL Manual Slide Review Performed Hypochromasia Marked PT 10.7 (9.0-12.0) sec INR 1.0 (<1.2) APTT 25.6 (22.0-30.0) sec Sodium (137-145) mmol/L Potassium (3.5-5.1) mmol/L Chloride (98-107) mmol/L Carbon Dioxide (22-30) mmol/L Anion Gap mmol/L BUN (9-20) mg/dL Creatinine (0.66-1.25) mg/dL Est GFR (CKD-EPI)AfAm (>60 ml/min/1.73 sqM) Est GFR (CKD-EPI)NonAf (>60 ml/min/1.73 sqM) Glucose (74-99) mg/dL POC Glucose (mg/dL) 385 H (75-99) mg/dL POC Glu Shipping Coordinator ID MadisonTanesha Lactic Ac Sepsis Rflx Plasma Lactic Acid Abdiel (0.7-2.0) mmol/L Calcium (8.4-10.2) mg/dL Magnesium (1.6-2.3) mg/dL Total Bilirubin (0.2-1.3) mg/dL AST (17-59) U/L ALT (4-49) U/L Alkaline Phosphatase (38-126) U/L Troponin I (0.000-0.034) ng/mL Total Protein (6.3-8.2) g/dL Albumin (3.5-5.0) g/dL Urine Color Urine Appearance (Clear) Urine pH (5.0-8.0) Ur Specific Addison (1.001-1.035) Urine Protein (Negative) Urine Glucose (UA) (Negative) Urine Ketones (Negative) Urine Blood (Negative) Urine Nitrite (Negative) Urine Bilirubin (Negative) Urine Urobilinogen (<2.0) mg/dL Ur Leukocyte Esterase (Negative) Urine RBC (0-5) /hpf Urine WBC (0-5) /hpf Urine Bacteria (None) /hpf Urine Mucus (None) /hpf Urine Sperm (None) /hpf Coronavirus (PCR) (Not Detectd) 07/25/20 07/25/20 07/25/20 Range/Units 00:51 00:51 00:51 WBC (3.8-10.6) k/uL RBC (4.30-5.90) m/uL Hgb (13.0-17.5) gm/dL Hct (39.0-53.0) % MCV (80.0-100.0) fL MCH (25.0-35.0) pg MCHC (31.0-37.0) g/dL RDW (11.5-15.5) % Plt Count (150-450) k/uL MPV Neutrophils % % Lymphocytes % % Monocytes % % Eosinophils % % Basophils % % Neutrophils # (1.3-7.7) k/uL Lymphocytes # (1.0-4.8) k/uL Monocytes # (0-1.0) k/uL Eosinophils # (0-0.7) k/uL Basophils # (0-0.2) k/uL Manual Slide Review Hypochromasia PT (9.0-12.0) sec INR (<1.2) APTT (22.0-30.0) sec Sodium 138 (137-145) mmol/L Potassium 4.8 (3.5-5.1) mmol/L Chloride 109 H (98-107) mmol/L Carbon Dioxide 14 L (22-30) mmol/L Anion Gap 15 mmol/L BUN 20 (9-20) mg/dL Creatinine 1.26 H (0.66-1.25) mg/dL Est GFR (CKD-EPI)AfAm 68 (>60 ml/min/1.73 sqM) Est GFR (CKD-EPI)NonAf 59 (>60 ml/min/1.73 sqM) Glucose 265 H (74-99) mg/dL POC Glucose (mg/dL) (75-99) mg/dL POC Glu Shipping Coordinator ID Lactic Ac Sepsis Rflx Plasma Lactic Acid Abdiel (0.7-2.0) mmol/L Calcium 8.9 (8.4-10.2) mg/dL Magnesium 2.3 (1.6-2.3) mg/dL Total Bilirubin 0.8 (0.2-1.3) mg/dL AST 391 H (17-59) U/L ALT 476 H (4-49) U/L Alkaline Phosphatase 116 (38-126) U/L Troponin I 0.068 H* (0.000-0.034) ng/mL Total Protein 6.7 (6.3-8.2) g/dL Albumin 3.8 (3.5-5.0) g/dL Urine Color Yellow Urine Appearance Clear (Clear) Urine pH 5.5 (5.0-8.0) Ur Specific Addison 1.017 (1.001-1.035) Urine Protein 1+ H (Negative) Urine Glucose (UA) Negative (Negative) Urine Ketones Negative (Negative) Urine Blood Trace H (Negative) Urine Nitrite Negative (Negative) Urine Bilirubin Negative (Negative) Urine Urobilinogen <2.0 (<2.0) mg/dL Ur Leukocyte Esterase Negative (Negative) Urine RBC 11 H (0-5) /hpf Urine WBC 6 H (0-5) /hpf Urine Bacteria Rare H (None) /hpf Urine Mucus Rare H (None) /hpf Urine Sperm Occasional H (None) /hpf Coronavirus (PCR) (Not Detectd) 07/25/20 07/25/20 07/25/20 Range/Units 00:51 01:08 01:27 WBC (3.8-10.6) k/uL RBC (4.30-5.90) m/uL Hgb (13.0-17.5) gm/dL Hct (39.0-53.0) % MCV (80.0-100.0) fL MCH (25.0-35.0) pg MCHC (31.0-37.0) g/dL RDW (11.5-15.5) % Plt Count (150-450) k/uL MPV Neutrophils % % Lymphocytes % % Monocytes % % Eosinophils % % Basophils % % Neutrophils # (1.3-7.7) k/uL Lymphocytes # (1.0-4.8) k/uL Monocytes # (0-1.0) k/uL Eosinophils # (0-0.7) k/uL Basophils # (0-0.2) k/uL Manual Slide Review Hypochromasia PT (9.0-12.0) sec INR (<1.2) APTT (22.0-30.0) sec Sodium (137-145) mmol/L Potassium (3.5-5.1) mmol/L Chloride (98-107) mmol/L Carbon Dioxide (22-30) mmol/L Anion Gap mmol/L BUN (9-20) mg/dL Creatinine (0.66-1.25) mg/dL Est GFR (CKD-EPI)AfAm (>60 ml/min/1.73 sqM) Est GFR (CKD-EPI)NonAf (>60 ml/min/1.73 sqM) Glucose (74-99) mg/dL POC Glucose (mg/dL) (75-99) mg/dL POC Glu Shipping Coordinator ID Lactic Ac Sepsis Rflx Y Plasma Lactic Acid Abdiel 9.9 H* (0.7-2.0) mmol/L Calcium (8.4-10.2) mg/dL Magnesium (1.6-2.3) mg/dL Total Bilirubin (0.2-1.3) mg/dL AST (17-59) U/L ALT (4-49) U/L Alkaline Phosphatase (38-126) U/L Troponin I (0.000-0.034) ng/mL Total Protein (6.3-8.2) g/dL Albumin (3.5-5.0) g/dL Urine Color Urine Appearance (Clear) Urine pH (5.0-8.0) Ur Specific Addison (1.001-1.035) Urine Protein (Negative) Urine Glucose (UA) (Negative) Urine Ketones (Negative) Urine Blood (Negative) Urine Nitrite (Negative) Urine Bilirubin (Negative) Urine Urobilinogen (<2.0) mg/dL Ur Leukocyte Esterase (Negative) Urine RBC (0-5) /hpf Urine WBC (0-5) /hpf Urine Bacteria (None) /hpf Urine Mucus (None) /hpf Urine Sperm (None) /hpf Coronavirus (PCR) Not Detected (Not Detectd) Disposition Clinical Impression: Cardiac arrest Disposition: ADMITTED IP TO THIS HOSP Condition: Critical Is patient prescribed a controlled substance at d/c from ED?: No
[2020-07-25 01:00] LABS: Appearance,Urine Clear (Clear); Bacteria,Urine Rare /hpf; Bilirubin,Urine Negative (Negative); Blood,Urine Trace (Negative); Color,Urine Yellow; Glucose,Urine (UA) Negative (Negative); Ketones,Urine Negative (Negative); Leukocyte Esterase,Urine Negative (Negative); Mucus,Urine Rare /hpf; Nitrite,Urine Negative (Negative); PH, Urine 5.5 (5.0-8.0); Protein,Urine 1+ (Negative); RBC,Urine 11 /hpf (0-5); Specific Gravity,Urine 1.017 (1.001-1.035); Sperm,Urine Occasional /hpf; Urobilinogen,Urine <2.0 mg/dL (<2.0); WBC,Urine 6 /hpf (0-5)
[2020-07-25 01:02] LABS: Albumin 3.8 g/dL (3.5-5.0); Calcium 8.9 mg/dL (8.4-10.2); Magnesium 2.3 mg/dL (1.6-2.3); Total Bilirubin 0.8 mg/dL (0.2-1.3); Total Protein 6.7 g/dL (6.3-8.2)
[2020-07-25 01:03] LABS: Basophils # (A) 0.3 k/uL (0-0.2); Basophils % (A) 2 %; Eosinophils # (A) 0.5 k/uL (0-0.7); Eosinophils % (A) 3 %; HCT 46.1 % (39.0-53.0); Hypochromasia Marked; Lymphocytes # (A) 6.1 k/uL (1.0-4.8); Lymphocytes % (A) 41 %; MCH 30.5 pg (25.0-35.0); MCHC 30.9 g/dL (31.0-37.0); MCV 98.7 fL (80.0-100.0); Monocytes # (A) 1.1 k/uL (0-1.0); Monocytes % (A) 7 %; Neutrophils # (A) 6.6 k/uL (1.3-7.7); Neutrophils % (A) 44 %; Platelet Count 155 k/uL (150-450); RBC 4.67 m/uL (4.30-5.90)
[2020-07-25 01:12] LABS: Potassium 4.8 mmol/L (3.5-5.1)
[2020-07-25 01:30] LABS: HGB 14.3 gm/dL (13.0-17.5)
--- NOTE | 2020-07-25 01:32 | XR ---
EXAM: XR Chest, 1 View CLINICAL HISTORY: dysrhythmia TECHNIQUE: Frontal view of the chest. COMPARISON: 05/29/20 FINDINGS: Lungs: Small amount of scattered airspace opacities in both lungs, worse over bilateral lower lung zones. Pleural space: Unremarkable. No pneumothorax. Heart: Cardiomegaly. Bones/joints: Sternal wires and mediastinal clips are again noted. Osteopenia. Tubes, lines and devices: Tip of endotracheal tube is about 6 cm above the jordan. Tip of enteric tube is in the body the stomach. IMPRESSION: Supporting tubes are in place. Mild to moderate CHF. Superimposed pneumonia, especially in right lung should also be considered.
--- NOTE | 2020-07-25 01:36 | CT ---
EXAM: CT Head Without Intravenous Contrast CLINICAL HISTORY: unresponsive TECHNIQUE: Axial computed tomography images of the head/brain without intravenous contrast. CTDI is 49.29 mGy and DLP is 118.4 mGy-cm. This CT exam was performed using one or more of the following dose reduction techniques: automated exposure control, adjustment of the mA and/or kV according to patient size, and/or use of iterative reconstruction technique. Coronal and sagittal reformatted images were created and reviewed. COMPARISON: 04/01/20 FINDINGS: Brain: Old infarct of right parietal and occipital lobes. No hemorrhage. No significant white matter disease. Ventricles: Unremarkable. No ventriculomegaly. Bones/joints: Unremarkable. No acute fracture. Soft tissues: Unremarkable. Sinuses: Unremarkable as visualized. No acute sinusitis. Mastoid air cells: Unremarkable as visualized. No mastoid effusion. IMPRESSION: No acute intracranial findings or substantial change.
[2020-07-25 01:45] LABS: Partial Thromboplastin Time 25.6 sec (22.0-30.0); Prothrombin Time 10.7 sec (9.0-12.0)
[2020-07-25] MEDS ORDERED: ARTIFICIAL TEARS OINTMENT 3.5 GM TUBE BOTH EYES PRN (01:45)
[2020-07-25] MEDS ORDERED: ARTIFICIAL TEARS-HYPROMELLOSE DROPS 15 ML BTL BOTH EYES PRN (01:45)
[2020-07-25] MEDS ORDERED: NALOXONE 0.4 MG/ML 1 ML VIAL IV PRN (01:45)
[2020-07-25] MEDS ORDERED: AMIODARONE 360 MG in DEXTROSE 5% IN WATER 200 ML IV ONE ×2 (01:55)
[2020-07-25] MEDS ORDERED: ASPIRIN 300 MG SUPP RECTAL STA (01:55)
[2020-07-25 02:00] LABS: ABG Base Excess -13.4 mmol/L; ABG HCO3 14 mmol/L (21-25); ABG Oxygen Saturation 93.7 % (94-97); ABG PCO2 35 mmHg (35-45); ABG PH 7.22 (7.35-7.45); ABG PO2 80 mmHg (83-108); ABG TCO2 15 mmol/L (19-24); Allen Test Performed? Yes
[2020-07-25] MEDS: SODIUM CHLORIDE 0.9% 1,000 ML IV SCH ×3 (02:17→22:00)
[2020-07-25] MEDS: lisinopriL 10 MG TAB PO SCH (07:40)
[2020-07-25] MEDS: amLODIPine 5 MG TAB PO SCH (07:40)
[2020-07-25] MEDS: METOPROLOL TARTRATE 50 MG TAB PO SCH ×2 (07:40→23:10)
[2020-07-25] MEDS: CLOPIDOGREL 75 MG TAB PO SCH (07:40)
[2020-07-25] MEDS: ATORVASTATIN 40 MG TAB PO SCH (07:41)
[2020-07-25] MEDS: ASPIRIN 325 MG TAB PO SCH (07:41)
[2020-07-25] MEDS: FAMOTIDINE 20 MG/2 ML VIAL IV SCH ×2 (07:58→23:09)
[2020-07-25] MEDS ORDERED: AMIODARONE 300 MG in DEXTROSE 5% IN WATER 250 ML IV SCH ×2 (08:00)
[2020-07-25 08:33] LABS: Glucose,Whole Blood 385 mg/dL (75-99)
[2020-07-25 09:02] LABS: ABG Base Excess -8.9 mmol/L; ABG HCO3 17 mmol/L (21-25); ABG Oxygen Saturation 98.3 % (94-97); ABG PCO2 34 mmHg (35-45); ABG PH 7.32 (7.35-7.45); ABG PO2 171 mmHg (83-108); ABG TCO2 18 mmol/L (19-24); Allen Test Performed? Yes
--- NOTE | 2020-07-25 10:00 | ECHOF ---
Referral Reason:cardiac arrest MEASUREMENTS -------- HEIGHT: 172.7 cm WEIGHT: 81.6 kg BP: RVIDd: 3.5 cm (< 3.3) IVSd: 1.3 cm (0.6 - 1.1) LVIDd: 6.0 cm (3.9 - 5.3) LVPWd: 0.9 cm (0.6 - 1.1) IVSs: 1.5 cm LVIDs: 5.8 cm LVPWs: 1.3 cm LA Diam: 4.0 cm (2.7 - 3.8) Ao Diam: 4.0 cm (2.0 - 3.7) AV Cusp: 1.3 cm (1.5 - 2.6) MV EXCURSION: 14.924 mm (> 18.000) MV EF SLOPE: 54 mm/s (70 - 150) EPSS: 2.0 cm RAP: 5.00 mmHg RVSP: 30.03 mmHg FINDINGS -------- Sinus rhythm. This was a technically good study. The left ventricle is moderately dilated. Left ventricular wall thickness is normal. There is sev ere global hypokinesis of LV . Overall left ventricular systolic function is severely impaired with , an EF between 20 - 25 %. The right ventricle is normal in size. The left atrial size is normal. The right atrial size is normal. There is mild aortic valve sclerosis. There is mild aortic regurgitation. Mild mitral regurgitation is present. Mild tricuspid regurgitation present. Right ventricular systolic pressure is normal at < 35 mmHg. There is no pulmonic regurgitation present. There is a small, generalized pericardial effusion present. CONCLUSIONS -------- 1. The left ventricle is moderately dilated. 2. Left ventricular wall thickness is normal. 3. There is severe global hypokinesis of LV . 4. Overall left ventricular systolic function is severely impaired with, an EF between 20 - 25 %. 5. The right ventricle is normal in size. 6. The left atrial size is normal. 7. The right atrial size is normal. 8. There is mild aortic valve sclerosis. 9. There is mild aortic regurgitation. 10. Mild mitral regurgitation is present. 11. Mild tricuspid regurgitation present. 12. There is a small, generalized pericardial effusion present. SENIOR MANAGER MMCOE: Duyen Villa RDCS
[2020-07-25 11:27] LABS: ABG Base Excess -8.2 mmol/L; ABG HCO3 17 mmol/L (21-25); ABG Oxygen Saturation 97.4 % (94-97); ABG PCO2 31 mmHg (35-45); ABG PH 7.35 (7.35-7.45); ABG PO2 108 mmHg (83-108); ABG TCO2 18 mmol/L (19-24); Allen Test Performed? Yes
[2020-07-25 14:26] LABS: Glucose,Whole Blood 127 mg/dL (75-99)
[2020-07-25] MEDS ORDERED: IPRATROPIUM-ALBUTEROL 3 ML NEB INHALATION PRN (14:31)
--- NOTE | 2020-07-25 14:55 | P.CNPUL ---
History of Present Illness Consult date: 07/25/20 Requesting physician: Rafi Steward Reason for consult: other (Critical care/ventilator management) Chief complaint: Cardiac arrest History of present illness: This is a 65-year-old gentleman with a history of paroxysmal atrial fibrillation, hypertension, hyperlipidemia, chronic tobacco dependence, peripheral artery disease with previous aorto bifemoral bypass in 2004. He was here in May 2020 for a non-ST segment elevation myocardial infarction and found have significant multivessel coronary disease. On 05/24/2020 he had undergone an off pump coronary artery bypass graft surgery 4 with a BERNARDO to the LAD, reverse saphenous vein grafts to the RCA, radial artery to the intermediate coronary artery, reverse saphenous vein graft to the first diagonal branch. He has a history of severe ischemic cardiomyopathy with the most recent echocardiogram revealing ejection fraction 25-30%. The patient did have a LifeVest at home. Shortly after midnight his heard him making strange noises and found him unresponsive. He did not have his LifeVest on at the time. She initiated CPR EMS was called and he was brought here to the emergency room. He did develop return of spontaneous circulation. He is intubated on the mechanical ventilator. He is seen in the emergency room. Initial vent settings with assist control at a rate of 16, tidal volume 450, FiO2 100% and a PEEP of 5. Blood gases revealed a pO2 of 171, pCO2 34, pH 7.32 on 80% FiO2. Chest x- ray revealed moderate congestive heart failure with possible superimposed pneumonia especially in the right lung. Possible aspiration. Computed tomography scan of the brain revealed no acute intracranial findings. EKG reve als sinus rhythm with occasional PVCs and a right bundle branch block pattern. Repeat echocardiogram reveals severe global hypokinesis of the left ventricle with ejection fraction 20-25%. White count 15.0. Hemoglobin 14.3. Sodium 138. Potassium 4.8. Bicarb 14. Creatinine 1.26. Lactic acid 5.7. Troponin 0.068. AST 391. ALT 476. Velásquez virus by PCR not detected. 0.9 normal saline at 100 ML's per hour. On amiodarone at 1 mg per minute. Propofol at 20 mcg/kg/m. Initiated on bronchodilators. Review of Systems ROS unobtainable: due to endotracheal tube Past Medical History Past Medical History: Coronary Artery Disease (CAD), Heart Failure, CVA/TIA, Myocardial Infarction ([place]) Additional Past Medical History / Comment(s): hospitalized 03/29/20 with stroke with left hand weakness, CHF, episode of a -fib , Left ventricular thrombus., previous cva's found on testing., Hx of AAA repair 2004 and due to stents he is unable to have MRI greater than 3.5*. , tinnitus , hx diverticulitis. Last Myocardial Infarction Date:: 03/29/20 History of Any Multi-Drug Resistant Organisms: None Reported Past Surgical History: Heart Catheterization, Orthopedic Surgery, Tonsillectomy Additional Past Surgical History / Comment(s): bypass sx in left leg, AAA repair 2004, jason carpal tunnel, rt hand X2, KASSIE. Past Anesthesia/Blood Transfusion Reactions: No Reported Reaction Additional Past Anesthesia/Blood Transfusion Reaction / Comment(s): . Past Psychological History: No Psychological Hx Reported Smoking Status: Former smoker Past Alcohol Use History: None Reported Past Drug Use History: None Reported - Past Family History Mother Family Medical History: COPD Father Additional Family Medical History / Comment(s): from Brain aneurysm family Family Medical History: No Reported History Medications and Allergies Home Medications Medication Instructions Recorded Confirmed Type Clopidogrel [Plavix] 75 mg PO DAILY #30 tab 04/01/20 07/25/20 Rx Atorvastatin [Lipitor] 40 mg PO QAM 05/17/20 07/25/20 History Acetaminophen Tab [Tylenol] 1,000 mg PO Q6HR PRN tab 05/29/20 07/25/20 Rx Aspirin 325 mg PO DAILY #30 tab 05/29/20 07/25/20 Rx Metoprolol Tartrate [Lopressor] 50 mg PO BID #60 tab 05/29/20 07/25/20 Rx Pantoprazole [Protonix] 40 mg PO AC-BRKFST #30 tablet.dr 05/29/20 07/25/20 Rx amLODIPine [Norvasc] 5 mg PO DAILY@1200 #30 tab 05/29/20 07/25/20 Rx lisinopriL [Zestril] 5 mg PO DAILY@1200 #30 tab 05/29/20 07/25/20 Rx Sennosides-Docusate Sodium 2 tab PO HS PRN 07/25/20 07/25/20 History [Senokot-S] Allergies Allergy/AdvReac Type Severity Reaction Status Date / Time Tetracyclines Allergy "made me Verified 07/25/20 08:37 sleep for a week" Physical Exam Vitals: Vital Signs Temp Pulse Resp BP Pulse Ox 07/25/20 13:57 97.6 F 77 16 134/76 98 07/25/20 13:56 97.6 F 78 16 144/74 98 07/25/20 12:53 80 16 145/76 97 07/25/20 12:00 82 25 H 137/76 97 07/25/20 11:30 78 24 127/71 100 07/25/20 11:00 76 23 124/73 96 07/25/20 10:45 78 16 124/73 97 07/25/20 10:30 77 25 H 124/72 99 07/25/20 10:00 75 25 H 122/68 99 07/25/20 09:30 76 26 H 125/69 100 07/25/20 09:00 97.4 F L 74 21 125/83 95 07/25/20 08:30 76 25 H 127/71 94 L 07/25/20 08:01 75 16 127/71 100 07/25/20 08:00 77 24 118/69 100 07/25/20 07:30 74 19 102/85 07/25/20 07:10 74 16 120/69 100 07/25/20 07:00 65 19 120/67 97 07/25/20 06:37 97.7 F 07/25/20 06:35 75 21 112/68 95 07/25/20 06:30 74 21 111/67 96 07/25/20 06:25 75 22 109/67 95 07/25/20 06:20 74 21 107/59 95 07/25/20 06:15 75 21 108/65 95 07/25/20 06:10 75 23 109/63 98 07/25/20 06:05 74 23 113/77 97 07/25/20 06:00 73 23 121/65 94 L 07/25/20 05:55 75 24 126/72 97 07/25/20 05:50 79 21 142/82 07/25/20 05:45 87 28 H 121/81 07/25/20 05:40 75 24 132/88 07/25/20 05:35 81 13 133/78 07/25/20 05:30 75 18 122/71 95 12/16/20 05:25 75 27 H 119/72 96 07/25/20 05:20 74 26 H 126/72 98 07/25/20 05:15 73 18 119/71 97 07/25/20 05:10 77 26 H 114/73 96 07/25/20 05:05 72 22 114/68 99 07/25/20 05:00 73 23 107/64 97 07/25/20 04:55 71 20 112/70 95 07/25/20 04:50 73 24 111/68 98 07/25/20 04:45 71 23 110/70 95 07/25/20 04:40 72 23 109/68 96 07/25/20 04:35 72 25 H 107/68 98 07/25/20 04:30 70 23 105/69 96 07/25/20 04:25 74 26 H 106/64 98 07/25/20 04:20 70 24 100/64 07/25/20 04:15 69 23 102/63 98 07/25/20 04:10 70 24 95/63 07/25/20 04:05 70 24 97/65 100 07/25/20 04:00 69 23 101/66 100 07/25/20 03:55 69 24 97/68 100 07/25/20 03:50 69 23 98/62 100 07/25/20 03:45 69 23 96/62 100 07/25/20 03:40 70 24 95/60 100 07/25/20 03:35 71 25 H 98/68 99 07/25/20 03:30 70 26 H 102/63 100 07/25/20 03:25 71 26 H 94/60 100 07/25/20 03:20 72 25 H 93/66 100 07/25/20 03:15 73 25 H 100/63 98 07/25/20 03:10 74 26 H 92/61 99 07/25/20 03:05 73 24 91/58 98 07/25/20 03:00 77 25 H 91/58 96 07/25/20 02:55 76 25 H 94/63 97 07/25/20 02:50 76 27 H 93/62 96 07/25/20 02:45 77 25 H 94/59 95 07/25/20 02:40 75 27 H 97/65 93 L 07/25/20 02:35 78 28 H 109/64 93 L 07/25/20 02:30 80 27 H 147/90 95 07/25/20 02:25 85 26 H 97/61 95 07/25/20 02:20 77 28 H 97/68 94 L 07/25/20 02:15 79 29 H 102/63 93 L 07/25/20 02:10 80 22 132/105 94 L 07/25/20 02:05 90 30 H 91/62 93 L 07/25/20 02:00 83 31 H 94/59 93 L 07/25/20 01:55 81 24 94/60 93 L 07/25/20 01:50 82 31 H 103/64 92 L 07/25/20 01:49 16 07/25/20 01:45 86 31 H 111/65 92 L 07/25/20 01:40 86 33 H 133/77 93 L 07/25/20 01:35 90 31 H 176/96 94 L 07/25/20 01:30 89 16 117/73 93 L 07/25/20 01:25 85 18 117/73 95 07/25/20 01:15 86 116/70 95 07/25/20 01:10 124/77 93 L 07/25/20 01:05 93 24 119/80 94 L 07/25/20 01:00 79 26 H 105/71 95 07/25/20 00:56 97.6 F 71 24 156/91 93 L Intake and Output 07/24/20 07/25/20 07/25/20 22:59 06:59 14:59 Intake Total 4.409 147.400 Output Total 150 1550 Balance -145.591 -1402.600 Intake: Intake, IV Titration 4.409 147.400 Amount Amiodarone 300 mg In 130.417 Dextrose 5% in Water 250 ml @ 0.5 MG/MIN 25 mls/hr IV .Q10H [facility] Rx#: [id number] propofoL 1,000 mg In 4.409 Empty Bag 1 bag @ Titrate IV .Q0M ONE Rx#: [id number] propofoL 1,000 mg In 16.983 Empty Bag 1 bag @ Titrate IV .Q0M ONE Rx#: [id number] Output: Gastric Drainage 400 Urine 150 1100 Uretheral (Clemens) 150 Other 50 Other: Weight 81.647 kg GENERAL EXAM: Intubated, sedated 65-year-old gentleman, on the mechanical ventilator, synchronous with the ventilator, in no apparent distress. HEAD: Normocephalic. EYES: Sluggish reaction of pupils, equal size. NOSE: Clear with pink turbinates. THROAT: Oral endotracheal and gastric tube secured in place. No erythema or exudates. NECK: No masses, no JVD. CHEST: No chest wall deformity. LUNGS: Equal air entry with crackles in the bilateral posterior bases. CVS: S1 and S2 normal with an audible murmur, regular rhythm. ABDOMEN: No hepatosplenomegaly, normal bowel sounds, no guarding or rigidity. SPINE: No scoliosis or deformity SKIN: No rashes CENTRAL NERVOUS SYSTEM: Sedated, tone is normal in all 4 extremities. EXTREMITIES: There is trace peripheral edema. No clubbing, no cyanosis. Peripheral pulses are intact. Results - Laboratory Findings CBC and BMP: 07/25/20 00:51 07/25/20 00:51 ABG ABG pH 7.35 (7.35-7.45) 07/25/20 11:18 ABG pCO2 31 mmHg (35-45) L 07/25/20 11:18 ABG pO2 108 mmHg (83-108) 07/25/20 11:18 ABG O2 Saturation 97.4 % (94-97) H 07/25/20 11:18 PT/INR, D-dimer PT 10.7 sec (9.0-12.0) 07/25/20 00:51 INR 1.0 (<1.2) 07/25/20 00:51 Abnormal lab findings: Abnormal Labs 07/25/20 07/25/20 07/25/20 00:35 00:51 00:51 WBC 15.0 H MCHC 30.9 L Lymphocytes # 6.1 H Monocytes # 1.1 H Basophils # 0.3 H ABG pH ABG pCO2 ABG pO2 ABG HCO3 ABG Total CO2 ABG O2 Saturation Chloride Carbon Dioxide Creatinine Glucose POC Glucose (mg/dL) 385 H Plasma Lactic Acid Abdiel AST ALT Troponin I Urine Protein 1+ H Urine Blood Trace H Urine RBC 11 H Urine WBC 6 H Urine Bacteria Rare H Urine Mucus Rare H Urine Sperm Occasional H 07/25/20 07/25/20 07/25/20 00:51 00:51 00:51 WBC MCHC Lymphocytes # Monocytes # Basophils # ABG pH ABG pCO2 ABG pO2 ABG HCO3 ABG Total CO2 ABG O2 Saturation Chloride 109 H Carbon Dioxide 14 L Creatinine 1.26 H Glucose 265 H POC Glucose (mg/dL) Plasma Lactic Acid Abdiel 9.9 H* AST 391 H ALT 476 H Troponin I 0.068 H* Urine Protein Urine Blood Urine RBC Urine WBC Urine Bacteria Urine Mucus Urine Sperm 07/25/20 07/25/20 07/25/20 01:59 04:40 08:40 WBC MCHC Lymphocytes # Monocytes # Basophils # ABG pH 7.22 L ABG pCO2 ABG pO2 80 L ABG HCO3 14 L ABG Total CO2 15 L ABG O2 Saturation 93.7 L Chloride Carbon Dioxide Creatinine Glucose POC Glucose (mg/dL) Plasma Lactic Acid Abdiel 5.5 H* 5.6 H* AST ALT Troponin I Urine Protein Urine Blood Urine RBC Urine WBC Urine Bacteria Urine Mucus Urine Sperm 07/25/20 07/25/20 07/25/20 09:00 11:18 12:21 WBC MCHC Lymphocytes # Monocytes # Basophils # ABG pH 7.32 L ABG pCO2 34 L 31 L ABG pO2 171 H ABG HCO3 17 L 17 L ABG Total CO2 18 L 18 L ABG O2 Saturation 98.3 H 97.4 H Chloride Carbon Dioxide Creatinine Glucose POC Glucose (mg/dL) Plasma Lactic Acid Abdiel 5.7 H* AST ALT Troponin I Urine Protein Urine Blood Urine RBC Urine WBC Urine Bacteria Urine Mucus Urine Sperm 07/25/20 14:25 WBC MCHC Lymphocytes # Monocytes # Basophils # ABG pH ABG pCO2 ABG pO2 ABG HCO3 ABG Total CO2 ABG O2 Saturation Chloride Carbon Dioxide Creatinine Glucose POC Glucose (mg/dL) 127 H Plasma Lactic Acid Abdiel AST ALT Troponin I Urine Protein Urine Blood Urine RBC Urine WBC Urine Bacteria Urine Mucus Urine Sperm - Diagnostic Findings Chest x-ray: image reviewed Assessment and Plan Assessment: 1 Acute cardiopulmonary arrest with return of spontaneous circulation 2 Acute hypoxemic respiratory failure requiring intubation mechanical ventilatory support secondary to above 3 Severe ischemic cardiomyopathy with an ejection fraction of 20-25%, did have a LifeVest at home, was not on at the time of the arrest 4 Recent off-pump coronary artery bypass grafting 4 on 05/24/2020, BERNARDO to the LAD, reverse saphenous vein grafts to the RCA, first diagonal branch, radial artery to the intermediate coronary artery 5 History of paroxysmal atrial fibrillation 6 History of left ventricular thrombus 7 Hypertension 8 Hyperlipidemia 9 Chronic tobacco dependence 10 Peripheral arterial disease status post aortobifem bypass in 2004 11 History of CVA/TIA with left hand weakness in March 2020 Plan: The patient was seen and evaluated by Dr. Macias Chest x-ray, ABGs and labs reviewed FiO2 decreased to 50% Transfer to the ICU once a bed is available Repeat chest x-ray, ABGs and labs in a.m. Daily interruption of sedation to assess neurologic status We will continue to follow and make further recommendations based on his clinical status I, the cosigning physician, performed a history & physical examination of the patient. Lungs sounds crackles in the bilateral posterior bases. Maintaining good O2 saturations in the 90s on 50% FiO2 via the mechanical ventilator. I discussed the assessment and plan of care with my nurse practitioner, Kaycee Churchill. I attest to the above consultation as dictated by her. Time with Patient: Greater than 30
[2020-07-25] MEDS: IPRATROPIUM-ALBUTEROL 3 ML NEB INHALATION SCH ×3 (15:29→23:30)
[2020-07-25] MEDS: AMIODARONE 360 MG in DEXTROSE 5% IN WATER 200 ML IV SCH ×4 (15:52→21:59)
--- NOTE | 2020-07-25 15:52 | XR ---
EXAMINATION TYPE: XR chest 1V portable DATE OF EXAM: 07/25/2020 COMPARISON: 620 HISTORY: SOB, Follow Up FINDINGS: Indwelling tubes and catheters are unchanged. Infrahilar infiltrates persist although appear to be improved relative to the prior study. Stable appearance of the cardio-mediastinal structures at this time. IMPRESSION: 1. Infrahilar infiltrates persist although appear to be improved relative to the prior study.
--- NOTE | 2020-07-25 20:20 | P.HPIM ---
History of Present Illness H&P Date: 07/25/20 Chief Complaint: Patient collapsed History of presenting complaint: This is a 65-year-old patient of Dr. Rosalino Mcallister. Patient was here in the hospital in March of this year with a stroke and left hand weakness. CHF. Atrial fibrillation. Left ventricular thrombus. Has a history of AAA repair. Patient's heard a thud in the living room and found him on the floor. She started doing chest compressions. 911 was called. Patient did receive DC shock at least 2, IV amiodarone, fluid bolus, epinephrine at least 3 doses and patient was brought to the ER. She did resume his circulation. Initially patient was apneic and no pulse. Patient intubated here. Started on amiodarone and propofol. Both cardiology and waitress were consulted. Review of systems cannot be done: Patient intubated Past medical history to include: Coronary artery disease, CHF, stroke with left arm weakness, CHF, atrial fibrillation, definitely thrombus, AAA repair, diverticulitis Social history: Quit smoking in March of this year. Smoked half a pack a day starting in 1976. No alcohol. . Physical examination: VITAL SIGNS: 97.4, 78, 16, 125/69, 100% on the ventilator GENERAL: BMI 25.8, laying in bed, intubated. EYES: Pupils equal. Conjunctiva normal. HEENT: External appearance of nose and ears normal, oral cavity endotracheal tube with OG tube. NECK: JVD unable to assess masses not palpable. HEART: First and second heart sounds are normal; no edema. LUNGS: Respiratory rate increased; decreased breath sounds. ABDOMEN: Soft, nontender, liver spleen not palpable, no masses palpable. PSYCH: Sedatedl. NEUROLOGICAL: Cranial nerves grossly intact; no facial asymmetry, otherwise grossly intact. LYMPHATICS: No lymph nodes palpable in the axilla and neck INVESTIGATIONS, reviewed in the clinical context: White count 15 hemoglobin 14.3 platelets 155 Potassium 4.8 creatinine 1.26 Lactic acid 9.9 AST 391 ALT 476 Troponin I 0.068 Cordarone Y Narayan P/Cr-not detected EKG tracing personally reviewed by me-right bundle branch block pattern with PVC and nonspecific ST segment changes Chest x-ray film personally reviewed by [id number] megaly, some infiltrates Computed tomography scan of the brain-nil acute 2-D echocardiogram-EF 20-25%, severe global hypokinesia Previous testing: From 03/30/2020-carotid Doppler-up in the stenosis Cardiac catheterization in March 2020-multivessel coronary artery disease. With left ventricular thrombus Assessment: -Cardiac arrest witnessed, in a patient with known triple-vessel coronary artery disease. Back in March of this year she was seen by cardiothoracic team Dr. Gleason. Given the acute stroke, left ventricle thrombus. It was decided that patient was very high risk for cardiac bypass and he was to be managed medically. -Coronary artery [id number] as per cardiac catheterization March 2020 -Chronic congestive heart failure from systolic dysfunction EF 20-25% -Left ventricular thrombus -Essential hypertension -Hyperlipidemia -Patient has a life vest -Acute hypoxic respiratory failure currently patient on the ventilator support Plan: Patient intubated. On the ventilator. On IV propofol IV amiodarone. Patient being followed by both cardiology and pulmonary. Prognosis guarded. Patient also DuoNeb, amlodipine, aspirin, Lipitor, Plavix, Lopressor. Decision about anticoagulation as per cardiology. Past Medical History Past Medical History: Coronary Artery Disease (CAD), Heart Failure, CVA/TIA, Myocardial Infarction ([place]) Additional Past Medical History / Comment(s): hospitalized 03/29/20 with stroke with left hand weakness, CHF, episode of a -fib , Left ventricular thrombus., previous cva's found on testing., Hx of AAA repair 2004 and due to stents he is unable to have MRI greater than 3.5*. , tinnitus , hx diverticulitis. Last Myocardial Infarction Date:: 03/29/20 History of Any Multi-Drug Resistant Organisms: None Reported Past Surgical History: Heart Catheterization, Orthopedic Surgery, Tonsillectomy Additional Past Surgical History / Comment(s): bypass sx in left leg, AAA repair 2004, jason carpal tunnel, rt hand X2, KASSIE. Past Anesthesia/Blood Transfusion Reactions: No Reported Reaction Additional Past Anesthesia/Blood Transfusion Reaction / Comment(s): . Past Psychological History: No Psychological Hx Reported Smoking Status: Former smoker Past Alcohol Use History: None Reported Past Drug Use History: None Reported - Past Family History Mother Family Medical History: COPD Father Additional Family Medical History / Comment(s): from Brain aneurysm family Family Medical History: No Reported History Medications and Allergies Home Medications Medication Instructions Recorded Confirmed Type Clopidogrel [Plavix] 75 mg PO DAILY #30 tab 04/01/20 07/25/20 Rx Atorvastatin [Lipitor] 40 mg PO QAM 05/17/20 07/25/20 History Acetaminophen Tab [Tylenol] 1,000 mg PO Q6HR PRN tab 05/29/20 07/25/20 Rx Aspirin 325 mg PO DAILY #30 tab 05/29/20 07/25/20 Rx Metoprolol Tartrate [Lopressor] 50 mg PO BID #60 tab 05/29/20 07/25/20 Rx Pantoprazole [Protonix] 40 mg PO AC-BRKFST #30 tablet. 05/29/20 07/25/20 Rx amLODIPine [Norvasc] 5 mg PO DAILY@1200 #30 tab 05/29/20 07/25/20 Rx lisinopriL [Zestril] 5 mg PO DAILY@1200 #30 tab 05/29/20 07/25/20 Rx Sennosides-Docusate Sodium 2 tab PO HS PRN 07/25/20 07/25/20 History [Senokot-S] Allergies Allergy/AdvReac Type Severity Reaction Status Date / Time Tetracyclines Allergy "made me Verified 07/25/20 08:37 sleep for a week" Physical Exam Vitals: Vital Signs Temp Pulse Resp BP Pulse Ox 07/25/20 10:00 72 16 124/72 97 07/25/20 09:00 97.4 F L 78 16 125/69 100 07/25/20 08:01 75 16 127/71 100 07/25/20 07:10 74 16 120/69 100 07/25/20 06:37 97.7 F 07/25/20 06:35 75 21 112/68 95 07/25/20 06:30 74 21 111/67 96 07/25/20 06:25 75 22 109/67 95 07/25/20 06:20 74 21 107/59 95 07/25/20 06:15 75 21 108/65 95 07/25/20 06:10 75 23 109/63 98 07/25/20 06:05 74 23 113/77 97 07/25/20 06:00 73 23 121/65 94 L 07/25/20 05:55 75 24 126/72 97 07/25/20 05:50 79 21 142/82 07/25/20 05:45 87 28 H 121/81 07/25/20 05:40 75 24 132/88 07/25/20 05:35 81 13 133/78 07/25/20 05:30 75 18 122/71 95 07/25/20 05:25 75 27 H 119/72 96 07/25/20 05:20 74 26 H 126/72 98 07/25/20 05:15 73 18 119/71 97 07/25/20 05:10 77 26 H 114/73 96 07/25/20 05:05 72 22 114/68 99 07/25/20 05:00 73 23 107/64 97 07/25/20 04:55 71 20 112/70 95 07/25/20 04:50 73 24 111/68 98 07/25/20 04:45 71 23 110/70 95 07/25/20 04:40 72 23 109/68 96 07/25/20 04:35 72 25 H 107/68 98 07/25/20 04:30 70 23 105/69 96 07/25/20 04:25 74 26 H 106/64 98 07/25/20 04:20 70 24 100/64 07/25/20 04:15 69 23 102/63 98 07/25/20 04:10 70 24 95/63 07/25/20 04:05 70 24 97/65 100 07/25/20 04:00 69 23 101/66 100 07/25/20 03:55 69 24 97/68 100 07/25/20 03:50 69 23 98/62 100 07/25/20 03:45 69 23 96/62 100 07/25/20 03:40 70 24 95/60 100 07/25/20 03:35 71 25 H 98/68 99 07/25/20 03:30 70 26 H 102/63 100 07/25/20 03:25 71 26 H 94/60 100 07/25/20 03:20 72 25 H 93/66 100 07/25/20 03:15 73 25 H 100/63 98 07/25/20 03:10 74 26 H 92/61 99 07/25/20 03:05 73 24 91/58 98 07/25/20 03:00 77 25 H 91/58 96 07/25/20 02:55 76 25 H 94/63 97 07/25/20 02:50 76 27 H 93/62 96 07/25/20 02:45 77 25 H 94/59 95 07/25/20 02:40 75 27 H 97/65 93 L 07/25/20 02:35 78 28 H 109/64 93 L 07/25/20 02:30 80 27 H 147/90 95 07/25/20 02:25 85 26 H 97/61 95 07/25/20 02:20 77 28 H 97/68 94 L 07/25/20 02:15 79 29 H 102/63 93 L 07/25/20 02:10 80 22 132/105 94 L 07/25/20 02:05 90 30 H 91/62 93 L 07/25/20 02:00 83 31 H 94/59 93 L 07/25/20 01:55 81 24 94/60 93 L 07/25/20 01:50 82 31 H 103/64 92 L 07/25/20 01:49 16 07/25/20 01:45 86 31 H 111/65 92 L 07/25/20 01:40 86 33 H 133/77 93 L 07/25/20 01:35 90 31 H 176/96 94 L 07/25/20 01:30 89 16 117/73 93 L 07/25/20 01:25 85 18 117/73 95 07/25/20 01:15 86 116/70 95 07/25/20 01:10 124/77 93 L 07/25/20 01:05 93 24 119/80 94 L 07/25/20 01:00 79 26 H 105/71 95 07/25/20 00:56 97.6 F 71 24 156/91 93 L Intake and Output 07/24/20 07/25/20 07/25/20 22:59 06:59 14:59 Intake Total 4.409 Output Total 150 950 Balance -145.591 -950 Intake: Intake, IV Titration 4.409 Amount propofoL 1,000 mg In 4.409 Empty Bag 1 bag @ Titrate IV .Q0M ONE Rx#: [id number] Output: Gastric Drainage 200 Urine 150 750 Uretheral (Clemens) 150 Other: Weight 81.647 kg Results CBC & Chem 7: 07/25/20 00:51 07/25/20 00:51 Labs: Abnormal Lab Results - Last 24 Hours (Table) 07/25/20 07/25/20 07/25/20 Range/Units 00:35 00:51 00:51 WBC 15.0 H (3.8-10.6) k/uL MCHC 30.9 L (31.0-37.0) g/dL Lymphocytes # 6.1 H (1.0-4.8) k/uL Monocytes # 1.1 H (0-1.0) k/uL Basophils # 0.3 H (0-0.2) k/uL ABG pH (7.35-7.45) ABG pCO2 (35-45) mmHg ABG pO2 (83-108) mmHg ABG HCO3 (21-25) mmol/L ABG Total CO2 (19-24) mmol/L ABG O2 Saturation (94-97) % Chloride (98-107) mmol/L Carbon Dioxide (22-30) mmol/L Creatinine (0.66-1.25) mg/dL Glucose (74-99) mg/dL POC Glucose (mg/dL) 385 H (75-99) mg/dL Plasma Lactic Acid Abdiel (0.7-2.0) mmol/L AST (17-59) U/L ALT (4-49) U/L Troponin I (0.000-0.034) ng/mL Urine Protein 1+ H (Negative) Urine Blood Trace H (Negative) Urine RBC 11 H (0-5) /hpf Urine WBC 6 H (0-5) /hpf Urine Bacteria Rare H (None) /hpf Urine Mucus Rare H (None) /hpf Urine Sperm Occasional H (None) /hpf 07/25/20 07/25/20 07/25/20 Range/Units 00:51 00:51 00:51 WBC (3.8-10.6) k/uL MCHC (31.0-37.0) g/dL Lymphocytes # (1.0-4.8) k/uL Monocytes # (0-1.0) k/uL Basophils # (0-0.2) k/uL ABG pH (7.35-7.45) ABG pCO2 (35-45) mmHg ABG pO2 (83-108) mmHg ABG HCO3 (21-25) mmol/L ABG Total CO2 (19-24) mmol/L ABG O2 Saturation (94-97) % Chloride 109 H (98-107) mmol/L Carbon Dioxide 14 L (22-30) mmol/L Creatinine 1.26 H (0.66-1.25) mg/dL Glucose 265 H (74-99) mg/dL POC Glucose (mg/dL) (75-99) mg/dL Plasma Lactic Acid Abdiel 9.9 H* (0.7-2.0) mmol/L AST 391 H (17-59) U/L ALT 476 H (4-49) U/L Troponin I 0.068 H* (0.000-0.034) ng/mL Urine Protein (Negative) Urine Blood (Negative) Urine RBC (0-5) /hpf Urine WBC (0-5) /hpf Urine Bacteria (None) /hpf Urine Mucus (None) /hpf Urine Sperm (None) /hpf 07/25/20 07/25/20 07/25/20 Range/Units 01:59 04:40 08:40 WBC (3.8-10.6) k/uL MCHC (31.0-37.0) g/dL Lymphocytes # (1.0-4.8) k/uL Monocytes # (0-1.0) k/uL Basophils # (0-0.2) k/uL ABG pH 7.22 L (7.35-7.45) ABG pCO2 (35-45) mmHg ABG pO2 80 L (83-108) mmHg ABG HCO3 14 L (21-25) mmol/L ABG Total CO2 15 L (19-24) mmol/L ABG O2 Saturation 93.7 L (94-97) % Chloride (98-107) mmol/L Carbon Dioxide (22-30) mmol/L Creatinine (0.66-1.25) mg/dL Glucose (74-99) mg/dL POC Glucose (mg/dL) (75-99) mg/dL Plasma Lactic Acid Abdiel 5.5 H* 5.6 H* (0.7-2.0) mmol/L AST (17-59) U/L ALT (4-49) U/L Troponin I (0.000-0.034) ng/mL Urine Protein (Negative) Urine Blood (Negative) Urine RBC (0-5) /hpf Urine WBC (0-5) /hpf Urine Bacteria (None) /hpf Urine Mucus (None) /hpf Urine Sperm (None) /hpf 07/25/20 Range/Units 09:00 WBC (3.8-10.6) k/uL MCHC (31.0-37.0) g/dL Lymphocytes # (1.0-4.8) k/uL Monocytes # (0-1.0) k/uL Basophils # (0-0.2) k/uL ABG pH 7.32 L (7.35-7.45) ABG pCO2 34 L (35-45) mmHg ABG pO2 171 H (83-108) mmHg ABG HCO3 17 L (21-25) mmol/L ABG Total CO2 18 L (19-24) mmol/L ABG O2 Saturation 98.3 H (94-97) % Chloride (98-107) mmol/L Carbon Dioxide (22-30) mmol/L Creatinine (0.66-1.25) mg/dL Glucose (74-99) mg/dL POC Glucose (mg/dL) (75-99) mg/dL Plasma Lactic Acid Abdiel (0.7-2.0) mmol/L AST (17-59) U/L ALT (4-49) U/L Troponin I (0.000-0.034) ng/mL Urine Protein (Negative) Urine Blood (Negative) Urine RBC (0-5) /hpf Urine WBC (0-5) /hpf Urine Bacteria (None) /hpf Urine Mucus (None) /hpf Urine Sperm (None) /hpf
[2020-07-25] MEDS ORDERED: INSULIN ASPART (NovoLOG) 100 UNIT/ML VIAL SQ SCH (21:00)
[2020-07-25] MEDS ORDERED: FUROSEMIDE 10 MG/ML 4 ML VIAL IV STA (21:57)
[2020-07-25] MEDS: CHLORHEXIDINE GLUCONATE 15 ML CUP MUCOUS MEM SCH (23:10)
[2020-07-25] MEDS: INSULIN ASPART (NovoLOG) 100 UNIT/ML VIAL SQ SCH (23:32)
[2020-07-25 23:33] LABS: Glucose,Whole Blood 76 mg/dL (75-99)
[2020-07-26] MEDS: IPRATROPIUM-ALBUTEROL 3 ML NEB INHALATION SCH ×6 (03:16→23:46)
[2020-07-26] MEDS: AMIODARONE 360 MG in DEXTROSE 5% IN WATER 200 ML IV SCH ×8 (03:50→22:37)
[2020-07-26 04:45] LABS: Basophils # (A) 0.1 k/uL (0-0.2); Basophils % (A) 0 %; Eosinophils # (A) 0.2 k/uL (0-0.7); Eosinophils % (A) 1 %; HGB 13.6 gm/dL (13.0-17.5); Hypochromasia Slight; Lymphocytes # (A) 1.3 k/uL (1.0-4.8); Lymphocytes % (A) 7 %; MCH 30.4 pg (25.0-35.0); MCHC 31.7 g/dL (31.0-37.0); MCV 95.9 fL (80.0-100.0); Mean Platelet Volume 8.2; Monocytes # (A) 1.4 k/uL (0-1.0); Monocytes % (A) 8 %; Neutrophils # (A) 15.1 k/uL (1.3-7.7); Neutrophils % (A) 83 %; Platelet Count 178 k/uL (150-450); RBC 4.49 m/uL (4.30-5.90); RDW 14.5 % (11.5-15.5); WBC 18.2 k/uL (3.8-10.6)
[2020-07-26 05:06] LABS: Albumin 3.6 g/dL (3.5-5.0); Calcium 8.6 mg/dL (8.4-10.2); Total Bilirubin 0.8 mg/dL (0.2-1.3); Total Protein 6.7 g/dL (6.3-8.2)
[2020-07-26 05:10] LABS: ABG Base Excess -4.5 mmol/L; ABG HCO3 20 mmol/L (21-25); ABG Oxygen Saturation 96.3 % (94-97); ABG PCO2 32 mmHg (35-45); ABG PH 7.41 (7.35-7.45); ABG PO2 89 mmHg (83-108); ABG TCO2 21 mmol/L (19-24); Allen Test Performed? Yes
[2020-07-26 05:12] LABS: Potassium 4.9 mmol/L (3.5-5.1)
[2020-07-26 05:32] LABS: Glucose,Whole Blood 103 mg/dL (75-99)
[2020-07-26] MEDS: INSULIN ASPART (NovoLOG) 100 UNIT/ML VIAL SQ SCH ×3 (05:32→18:08)
--- NOTE | 2020-07-26 06:34 | XR ---
EXAMINATION TYPE: XR chest 1V portable DATE OF EXAM: 07/26/2020 CLINICAL HISTORY: Difficulty breathing progress study. Admitted for dysrhythmia yesterday. TECHNIQUE: Single AP portable semiupright view of the chest is obtained. COMPARISON: Chest x-ray from one day earlier and older studies FINDINGS: Stable endotracheal and orogastric tubes. Overlying sternal wires and mediastinal clips al gia with left atrial appendage clip are all redemonstrated. Persistent cardiomegaly with atherosclerotic thoracic aorta. Persistent small to tiny left pleural ef fusion and patchy left basilar opacity. Osseous structures are intact. IMPRESSION: Cardiomegaly with small to tiny left pleural effusion and patchy left basilar acute atele ctasis and/or infiltrate are all redemonstrated. No significant change from one day earlier.
[2020-07-26] MEDS: ASPIRIN 325 MG TAB PO SCH (08:09)
[2020-07-26] MEDS: SODIUM CHLORIDE 0.9% 1,000 ML IV SCH (08:09)
[2020-07-26] MEDS: ATORVASTATIN 40 MG TAB PO SCH (08:09)
[2020-07-26] MEDS: METOPROLOL TARTRATE 50 MG TAB PO SCH ×2 (08:09→19:38)
[2020-07-26] MEDS: CHLORHEXIDINE GLUCONATE 15 ML CUP MUCOUS MEM SCH ×2 (08:09→19:38)
[2020-07-26] MEDS: CLOPIDOGREL 75 MG TAB PO SCH (08:10)
[2020-07-26] MEDS: FAMOTIDINE 20 MG/2 ML VIAL IV SCH ×2 (08:10→19:38)
--- NOTE | 2020-07-26 11:15 | XR ---
EXAMINATION TYPE: XR chest 1V DATE OF EXAM: 07/26/2020 CLINICAL HISTORY: Triple lumen catheter placement. TECHNIQUE: Single AP portable semiupright view of the chest is obtained. COMPARISON: Chest x-ray from earlier today an older studies FINDINGS: New right internal jugular central venous catheter terminates the cavoatrial junction. Stable endotracheal and orogastric tubes. Overlying sternal wires and mediastinal clips along with le ft atrial appendage clip are all redemonstrated. Persistent cardiomegaly with atherosclerotic thoracic aorta. Persistent small to tiny left pleural ef fusion and patchy left basilar opacity. Osseous structures are intact. IMPRESSION: Cardiomegaly with small to tiny left pleural effusion and patchy left basilar acute atele ctasis and/or infiltrate are all redemonstrated. No significant change. No pneumothorax after right sided central venous catheter placement.
[2020-07-26 11:54] LABS: Glucose,Whole Blood 80 mg/dL (75-99)
[2020-07-26] MEDS: amLODIPine 5 MG TAB PO SCH (12:16)
[2020-07-26] MEDS: lisinopriL 10 MG TAB PO SCH (12:16)
[2020-07-26] MEDS: MORPHINE SULFATE 4 MG/ML SYRINGE IV PRN ×2 (15:58→23:43)
--- NOTE | 2020-07-26 16:20 | P.PN ---
Subjective Progress Note Date: 07/26/20 Principal diagnosis: Cardiac arrest, acute hypoxic respiratory failure secondary to cardiac arrest This is a 65-year-old gentleman with a history of paroxysmal atrial fibrillation , hypertension, hyperlipidemia, chronic tobacco dependence, peripheral artery disease with previous aorto bifemoral bypass in 2004. He was here in May 2020 for a non-ST segment elevation myocardial infarction and found have significant multivessel coronary disease. On 05/24/2020 he had undergone an off pump coronary artery bypass graft surgery 4 with a BERNARDO to the LAD, reverse saphenous vein grafts to the RCA, radial artery to the intermediate coronary artery, reverse saphenous vein graft to the first diagonal branch. He has a history of severe ischemic cardiomyopathy with the most recent echocardiogram revealing ejection fraction 25-30%. The patient did have a LifeVest at home. Shortly after midnight his heard him making strange noises and found him unresponsive. He did not have his LifeVest on at the time. She initiated CPR EMS was called and he was brought here to the emergency room. He did develop return of spontaneous circulation. He is intubated on the mechanical ventilator. He is seen in the emergency room. Initial vent settings with assist control at a rate of 16, tidal volume 450, FiO2 100% and a PEEP of 5. Blood gases revealed a pO2 of 171, pCO2 34, pH 7.32 on 80% FiO2. Chest x-ray revealed moderate congestive heart failure with possible superimposed pneumonia especially in the right lung. Possible aspiration. Computed tomography scan of the brain revealed no acute intracranial findings. EKG reveals sinus rhythm with occasional PVCs and a right bundle branch block pattern. Repeat echocardiogram reveals severe global hypokinesis of the left ventricle with ejection fraction 20-25%. White count 15.0. Hemoglobin 14.3. Sodium 138. Potassium 4.8. Bicarb 14. Creatinine 1.26. Lactic acid 5.7. Troponin 0.068. AST 391. ALT 476. Velásquez virus by PCR not detected. 0.9 normal saline at 100 ML's per hour. On amiodarone at 1 mg per minute. Propofol at 20 mcg/kg/m. Initiated on bronchodilators. Reevaluated today on 07/26/20, remains in the ICU intubated and mechanically ventilated. His ventilator settings are assist control rate of 16 per volume is 450 FiO2 is 40% and PEEP of 5. BG showed a pO2 of 89 pCO2 of 32 pH of 7.41, he nce no changes were made in his ventilatory settings. His drips include propofol at 40 mcg/kg/m, he is on 0.9 normal saline at 50 mL per hour, and on amiodarone at 1 mg/m. Chest x-ray showed evidence of cardiomegaly, tiny left pleural effusion, patchy left basilar atelectasis, and endotracheal tube was noted to be sitting high in the trachea, this was advanced about 2.5 cm down WBC count is 18.2 hemoglobin is 13.6. Basic metabolic profile is normal, transaminases are slightly elevated including AST of 170 and ALT of 367. Objective - Vital Signs Vital signs: Vital Signs Temp 99.2 F 07/26/20 12:00 Pulse 80 07/26/20 16:02 Resp 22 07/26/20 14:00 BP 128/77 07/26/20 14:00 Pulse Ox 99 07/26/20 14:00 Intake & Output 07/25/20 07/26/20 07/26/20 18:59 06:59 18:59 Intake Total 750.948 9927.324 643.887 Output Total 1900 2325 1265 Balance -1049.437 -1127.676 -621.113 Weight 82.6 kg Intake: IV 566.6 750 400 Amiodarone 360 mg In 66.6 Dextrose 5% in Water 200 ml @ 1 MG/MIN 33.333 mls/ hr IV .Q6H ONE Rx#: [id number] Sodium Chloride 0.9% 1, 500 750 400 000 ml @ 50 mls/hr IV . Q20H [facility] Rx#:[id number] Intake, IV Titration 283.963 447.324 243.887 Amount Amiodarone 300 mg In 130.417 Dextrose 5% in Water 250 ml @ 0.5 MG/MIN 25 mls/hr IV .Q10H [facility] Rx#: [id number] Amiodarone 360 mg In 90.555 293.332 143.887 Dextrose 5% in Water 200 ml @ 1 MG/MIN 33.333 mls/ hr IV .Q6H [facility] Rx#: [id number] propofoL 1,000 mg In 16.983 Empty Bag 1 bag @ Titrate IV .Q0M ONE Rx#: [id number] propofoL 1,000 mg In 46.008 153.992 100.000 Empty Bag 1 bag @ Titrate IV .Q0M [facility] Rx#: [id number] Output: Gastric Drainage 400 700 Urine 1450 2325 565 Other 50 Other: Voiding Method Indwelling Catheter Indwelling Catheter Indwelling Catheter ABP, PAP, CO, CI - Last Documented Arterial Blood Pressure 151/61 - Exam GENERAL EXAM: Revealed a 65-year-old white male sedated and mechanically ventilated, in no distress. HEAD: Normocephalic. Normocephalic. ENT: PERRLA, EOMI, no icterus, endotracheal tube and orogastric tubes are intact. CHEST: No chest wall deformity. LUNGS: Equal air entry no crackles or rhonchi or wheezes.. CVS: S1 and S2 normal with an audible murmur, regular rhythm. ABDOMEN: No hepatosplenomegaly, normal bowel sounds, no guarding or rigidity. SPINE: No scoliosis or deformity SKIN: No rashes CENTRAL NERVOUS SYSTEM: Sedated. Could not assess neurological status a hodge is on propofol.. Psychiatric: Could not assess. EXTREMITIES: There is trace peripheral edema. No clubbing, no cyanosis. Peripheral pulses are intact. - Labs CBC & Chem 7: 07/26/20 04:24 07/26/20 04:24 Labs: Abnormal Lab Results - Last 24 Hours (Table) 07/25/20 07/25/20 07/25/20 Range/Units 15:27 18:43 21:40 WBC (3.8-10.6) k/uL Neutrophils # (1.3-7.7) k/uL Monocytes # (0-1.0) k/uL ABG pCO2 (35-45) mmHg ABG HCO3 (21-25) mmol/L Chloride (98-107) mmol/L Carbon Dioxide (22-30) mmol/L Glucose (74-99) mg/dL POC Glucose (mg/dL) (75-99) mg/dL Plasma Lactic Acid Abdiel 5.7 H* 5.8 H* 5.5 H* (0.7-2.0) mmol/L AST (17-59) U/L ALT (4-49) U/L 07/26/20 07/26/20 07/26/20 Range/Units 04:24 04:24 05:10 WBC 18.2 H (3.8-10.6) k/uL Neutrophils # 15.1 H (1.3-7.7) k/uL Monocytes # 1.4 H (0-1.0) k/uL ABG pCO2 32 L (35-45) mmHg ABG HCO3 20 L (21-25) mmol/L Chloride 111 H (98-107) mmol/L Carbon Dioxide 14 L (22-30) mmol/L Glucose 106 H (74-99) mg/dL POC Glucose (mg/dL) (75-99) mg/dL Plasma Lactic Acid Abdiel (0.7-2.0) mmol/L AST 170 H (17-59) U/L ALT 367 H (4-49) U/L 07/26/20 Range/Units 05:31 WBC (3.8-10.6) k/uL Neutrophils # (1.3-7.7) k/uL Monocytes # (0-1.0) k/uL ABG pCO2 (35-45) mmHg ABG HCO3 (21-25) mmol/L Chloride (98-107) mmol/L Carbon Dioxide (22-30) mmol/L Glucose (74-99) mg/dL POC Glucose (mg/dL) 103 H (75-99) mg/dL Plasma Lactic Acid Abdiel (0.7-2.0) mmol/L AST (17-59) U/L ALT (4-49) U/L Microbiology - Last 24 Hours (Table) 07/25/20 13:00 Gram Stain - Preliminary Sputum Sputum Culture - Preliminary Assessment and Plan Assessment: Impression: Acute hypoxic respiratory failure secondary to cardiopulmonary arrest. Patient had ventricular fibrillation secondary to severe cardiomyopathy and LV dysfunction. Severe cardiomyopathy and LV dysfunction. Patient was not wearing his LifeVest at the time of his cardiac arrest. Severe ischemic cardiomyopathy. Recent history of bypass grafting 4 that was on May 24 2020. Paroxysmal atrial fibrillation. History of left ventricular thrombus. Benign essential hypertension. Peripheral vessel occlusive disease and previous aortobifemoral bypass in 2004. History of CVA and left hand weakness in March of 2020 Recommendation: Continue ventilatory support. Daily interruption of sedation and assessment of mental status as the patient may have developed anoxic brain injury Possible anoxic brain injury. Daily monitoring of chest x-ray and ABG. GI and DVT prophylaxis. Continue cardiac meds as per cardiology on the case. Consider neurological consultation if no significant mental status improvement noted in the next 24 hours. Consider even repeating the CT of the head. Overall prognosis is extremely poor and guarded, we will continue to follow. Critical care time is 35 minutes not including time spent on procedures. Time with Patient: Greater than 30
--- NOTE | 2020-07-26 17:19 | PCN ---
PROCEDURE NOTE PROCEDURE REPORT: Placement of the right internal jugular central line. PREOPERATIVE DIAGNOSIS: Acute hypoxic respiratory failure/cardiac arrest. POSTOPERATIVE DIAGNOSIS: Acute hypoxic respiratory failure/cardiac arrest. ANESTHESIA USED: Two mL of 1% lidocaine. PROCEDURE: The patient was placed in the Trendelenburg position, the area of the cervical region was prepared in a sterile fashion and drapes were applied. Then, the area behind the posterior belly of the sternocleidomastoid was locally anesthetized. Then using the posterior approach, the right internal jugular vein was easily cannulated, a guidewire was placed, the area of the guidewire was dilated. Then a triple-lumen catheter was inserted over the guidewire, and the guidewire was removed. Good blood flow noted in the 3 different ports, line was secured using 3.0 silk sutures: No evidence of any complications. Chest x-ray showed no evidence of complications and adequate placement of the line. MMODL / IJN: [id number] /
--- NOTE | 2020-07-26 17:22 | OP ---
OPERATIVE REPORT OPERATIVE REPORT: Right radial arterial line placement. ANESTHESIA USED: None deployed. PROCEDURE DESCRIPTION: The right wrist was prepared in a sterile fashion and drapes were applied. The right radial artery was palpated, cannulated, and a guidewire was placed. A Cook's catheter was inserted over the guidewire, and the guidewire was removed. Good blood flow, good waveform, no evidence of any immediate complications. The line was secured using 3.0 silk sutures. Please note: Patient had a right radial not left radial arterial line placement. MMODL / IJN: [id number] /
--- NOTE | 2020-07-26 17:22 | PCN ---
PROCEDURE NOTE PROCEDURE REPORT: Placement of the left radial arterial line. PREOPERATIVE DIAGNOSIS: Acute hypoxic respiratory failure and cardiac arrest. POSTOPERATIVE DIAGNOSIS: Acute hypoxic respiratory failure and cardiac arrest. ANESTHESIA: None deployed. PROCEDURE: Left wrist was prepared in a sterile fashion and drapes applied. Left radial artery was palpated, cannulated easily. Guidewire was placed. A Cook catheter was inserted over the guidewire, guidewire was removed. And there was adequate blood flow, adequate waveform, line was secured using 3.0 silk sutures. MMODL / IJN: [id number] /
[2020-07-26 18:06] LABS: Glucose,Whole Blood 65 mg/dL (75-99)
[2020-07-26] MEDS ORDERED: DEXTROSE 50% SYRINGE 50 ML IVP ONE (18:07)
[2020-07-26 18:22] LABS: Glucose,Whole Blood 244 mg/dL (75-99)
--- NOTE | 2020-07-26 19:29 | P.PN ---
Progress Note - Text Progress Note Date: 07/26/20 Chief Complaint: Patient collapsed History of presenting complaint: This is a 65-year-old patient of Dr. Rosalino Mcallister. Patient was here in the hospital in March of this year with a stroke and left hand weakness. CHF. Atrial fibrillation. Left ventricular thrombus. Has a history of AAA repair. Patient's heard a thud in the living room and found him on the floor. She started doing chest compressions. 911 was called. Patient did receive DC shock at least 2, IV amiodarone, fluid bolus, epinephrine at least 3 doses and patient was brought to the ER. She did resume his circulation. Initially patient was apneic and no pulse. Patient intubated here. Started on amiodarone and propofol. Both cardiology and blow off worker were consulted. [id number] the ventilator. FiO2 40 and a PEEP of 5. Patient is on IV propofol and IV amiodarone. OG tube. Review of systems cannot be done: Patient intubated Active Medications Albuterol/Ipratropium (Ipratropium-Albuterol 3 Ml Neb) 3 ml INHALATION RT-Q4H [facility] Last Admin: 07/26/20 15:47 Dose: 3 ml Documented by: Albuterol/Ipratropium (Ipratropium-Albuterol 3 Ml Neb) 3 ml INHALATION RT-Q2H PRN PRN Reason: Shortness Of Breath Or Wheezing Amlodipine Besylate (Amlodipine 5 Mg Tab) 5 mg PO DAILY@1200 [facility] Last Admin: 07/26/20 12:16 Dose: 5 mg Documented by: Artificial Tears (Artificial Tears-Hypromellose Drops 15 Ml Btl) 1 drops BOTH EYES Q4HR PRN PRN Reason: Dry Eye(s) Aspirin (Aspirin 325 Mg Tab) 325 mg PO DAILY [facility] Last Admin: 07/26/20 08:09 Dose: 325 mg Documented by: Atorvastatin Calcium (Atorvastatin 40 Mg Tab) 40 mg PO QAM [facility] Last Admin: 07/26/20 08:09 Dose: 40 mg Documented by: Chlorhexidine Gluconate (Chlorhexidine Gluconate 15 Ml Cup) 15 ml MUCOUS MEM BID [facility] Last Admin: 07/26/20 08:09 Dose: 15 ml Documented by: Clopidogrel Bisulfate (Clopidogrel 75 Mg Tab) 75 mg PO DAILY [facility] Last Admin: 07/26/20 08:10 Dose: 75 mg Documented by: Famotidine (Famotidine 20 Mg/2 Ml Vial) 20 mg IV Q12HR [facility] Last Admin: 07/26/20 08:10 Dose: 20 mg Documented by: Sodium Chloride (Saline 0.9%) 1,000 mls @ 50 mls/hr IV .Q20H [facility] Last Admin: 07/26/20 08:09 Dose: 50 mls/hr Documented by: Propofol 1,000 mg/ IV Solution 100 mls @ 0 mls/hr IV .Q0M [facility]; Protocol Last Titration: 07/26/20 18:24 Dose: 50 mcg/kg/min, 24.78 mls/hr Documented by: Amiodarone HCl 360 mg/ (Dextrose/Water) 200 mls @ 33.333 mls/hr IV .Q6H [facility]; Protocol Last Admin: 07/26/20 16:32 Dose: 1 mg/min, 33.333 mls/hr Documented by: Insulin Aspart (Insulin Aspart (Novolog) 100 Unit/Ml Vial) 0 unit SQ Q6H [facility]; Protocol Last Admin: 07/26/20 18:08 Dose: Not Given Documented by: Lisinopril (Lisinopril 10 Mg Tab) 5 mg PO DAILY@1200 [facility] Last Admin: 07/26/20 12:16 Dose: 5 mg Documented by: Metoprolol Tartrate (Metoprolol Tartrate 50 Mg Tab) 50 mg PO BID [facility] Last Admin: 07/26/20 08:09 Dose: 50 mg Documented by: Morphine Sulfate (Morphine Sulfate 4 Mg/Ml Syringe) 4 mg IV Q2HR PRN PRN Reason: Pain Scale 8 to 10 Last Admin: 07/26/20 15:58 Dose: 4 mg Documented by: Multi-Ingred Cream/Lotion/Oil/Oint (Artificial Tears Ointment 3.5 Gm Tube) 1 applic BOTH EYES Q4HR PRN PRN Reason: Dry Eye(s) Naloxone HCl (Naloxone 0.4 Mg/Ml 1 Ml Vial) 0.2 mg IV Q2M PRN PRN Reason: Opioid Reversal Physical examination: VITAL SIGNS: 99.2, 73, grade 2, 1 40 x 60, 99% on the ventilator GENERAL: BMI 25.8, laying in bed, intubated. EYES: Pupils equal. Conjunctiva normal. HEENT: External appearance of nose and ears normal, oral cavity endotracheal tube with OG tube. NECK: JVD unable to assess masses not palpable. HEART: First and second heart sounds are normal; no edema. LUNGS: Respiratory rate increased; decreased breath sounds. ABDOMEN: Soft, nontender, liver spleen not palpable, no masses palpable. PSYCH: Sedatedl. INVESTIGATIONS, reviewed in the clinical context: July 26: White count 18.2 hemoglobin 13.6 platelets 7.78 potassium 4.9 creatinine 1.20 bicarbonate 40 White count 15 hemoglobin 14.3 platelets 155 Potassium 4.8 creatinine 1.26 Lactic acid 9.9 AST 391 ALT 476 Troponin I 0.068 Cordarone Y Narayan P/Cr-not detected EKG tracing personally reviewed by me-right bundle branch block pattern with PVC and nonspecific ST segment changes Chest x-ray film personally reviewed by [id number] megaly, some infiltrates Computed tomography scan of the brain-nil acute 2-D echocardiogram-EF 20-25%, severe global hypokinesia Previous testing: From 03/30/2020-carotid Doppler-up in the stenosis Cardiac catheterization in March 2020-multivessel coronary artery disease. With left ventricular thrombus Assessment: -sudden cardiac -Cardiac arrest witnessed, in a patient with known triple- vessel coronary artery disease. Back in March of this year , was seen by cardiothoracic team Dr. Gleason. Given then, acute stroke, left ventricle thrombus. It was decided that patient was very high risk for cardiac bypass and he was to be managed medically. -Coronary artery [id number] as per cardiac catheterization March 2020 -Chronic congestive heart failure from systolic dysfunction EF 20-25%, from coronary artery disease -Left ventricular thrombus, as per cardiac catheterization in March 2020 -Essential hypertension -Hyperlipidemia -Patient has a life vest -Acute hypoxic respiratory failure currently patient on the ventilator support Plan: Patient intubated. On the ventilator. On IV propofol IV amiodarone. Follow with cardiology and pulmonary. Prognosis guarded. Patient also DuoNeb, amlodipine, aspirin, Lipitor, Plavix, Lopressor. Decision about anticoagulation as per cardiology.
[2020-07-26] MEDS ORDERED: MELATONIN 5 MG TABLET PO SCH (21:00)
[2020-07-26] MEDS ORDERED: SODIUM CHLORIDE 0.9% 500 ML 500 ML IV ONE (22:22)
[2020-07-26 23:50] LABS: Glucose,Whole Blood 76 mg/dL (75-99)
[2020-07-27] MEDS: INSULIN ASPART (NovoLOG) 100 UNIT/ML VIAL SQ SCH ×4 (00:01→18:13)
[2020-07-27] MEDS: AMIODARONE 360 MG in DEXTROSE 5% IN WATER 200 ML IV SCH ×8 (03:02→21:22)
[2020-07-27] MEDS: SODIUM CHLORIDE 0.9% 1,000 ML IV SCH (03:03)
[2020-07-27] MEDS: IPRATROPIUM-ALBUTEROL 3 ML NEB INHALATION SCH ×6 (03:26→23:55)
[2020-07-27] MEDS ORDERED: FUROSEMIDE 10 MG/ML 4 ML VIAL IV STA (04:02)
[2020-07-27 04:42] LABS: Basophils # (A) 0.1 k/uL (0-0.2); Basophils % (A) 0 %; Eosinophils # (A) 0.2 k/uL (0-0.7); Eosinophils % (A) 1 %; HCT 34.6 % (39.0-53.0); HGB 11.7 gm/dL (13.0-17.5); Lymphocytes # (A) 1.2 k/uL (1.0-4.8); Lymphocytes % (A) 10 %; MCH 31.3 pg (25.0-35.0); MCHC 33.8 g/dL (31.0-37.0); MCV 92.6 fL (80.0-100.0); Mean Platelet Volume 8.4; Monocytes % (A) 8 %; Neutrophils # (A) 10.2 k/uL (1.3-7.7); Neutrophils % (A) 80 %; Platelet Count 136 k/uL (150-450); RBC 3.74 m/uL (4.30-5.90); RDW 14.3 % (11.5-15.5); WBC 12.9 k/uL (3.8-10.6)
[2020-07-27 05:03] LABS: Albumin 3.2 g/dL (3.5-5.0); Calcium 8.2 mg/dL (8.4-10.2); Potassium 4.2 mmol/L (3.5-5.1); Total Bilirubin 0.7 mg/dL (0.2-1.3); Total Protein 5.9 g/dL (6.3-8.2)
[2020-07-27 05:39] LABS: ABG Base Excess -3.4 mmol/L; ABG HCO3 21 mmol/L (21-25); ABG PCO2 32 mmHg (35-45); ABG PH 7.43 (7.35-7.45); ABG PO2 88 mmHg (83-108); ABG TCO2 22 mmol/L (19-24); Allen Test Performed? Yes
[2020-07-27 05:59] LABS: Glucose,Whole Blood 85 mg/dL (75-99)
[2020-07-27] MEDS: FAMOTIDINE 20 MG/2 ML VIAL IV SCH ×2 (08:10→21:01)
[2020-07-27] MEDS: CLOPIDOGREL 75 MG TAB PO SCH (08:10)
[2020-07-27] MEDS: CHLORHEXIDINE GLUCONATE 15 ML CUP MUCOUS MEM SCH ×2 (08:10→21:01)
[2020-07-27] MEDS: ASPIRIN 325 MG TAB PO SCH (08:10)
[2020-07-27] MEDS: ATORVASTATIN 40 MG TAB PO SCH (08:10)
[2020-07-27] MEDS: METOPROLOL TARTRATE 50 MG TAB PO SCH ×2 (08:10→21:01)
--- NOTE | 2020-07-27 08:27 | XR ---
EXAMINATION TYPE: XR chest 1V portable DATE OF EXAM: 07/27/2020 COMPARISON: 07/26/2020 INDICATION: Tube placement TECHNIQUE: Single frontal view of the chest is obtained. FINDINGS: The heart size is moderately prominent. The pulmonary vasculature is normal. Left basilar infiltrate is present. There is silhouetting left diaphragm. Small left pleural effusion may be present. Right central venous catheter is present with the tip in the right atrium. No pneumothorax is evident . IMPRESSION: 1. Left lower lobe infiltrate and/or small left pleural effusion.
[2020-07-27] MEDS ORDERED: METOCLOPRAMIDE 5 MG/ML 2 ML VIAL IVP STA (09:26)
[2020-07-27 12:05] LABS: Glucose,Whole Blood 124 mg/dL (75-99)
[2020-07-27] MEDS: lisinopriL 10 MG TAB PO SCH (12:11)
[2020-07-27] MEDS: amLODIPine 5 MG TAB PO SCH (12:11)
--- NOTE | 2020-07-27 14:08 | PN ---
PROGRESS NOTE Mr. Barnard is 65-year-old male patient. Mr. Barnard was admitted with cardiac arrest VF arrest. He was resuscitated. Mr. Barnard remains intubated. He was admitted for VF arrest. He did have ischemic cardiomyopathy and was given a Life Vest. I am not sure if he is nhi the life Vest. In any case, he remains intubated. He is getting a neuro evaluation and EEG at this time. Once he is extubated and his neurologic status is normal, then we will definitely proceed with ICD implantation. MMODL / IJN: [id number] /
--- NOTE | 2020-07-27 15:38 | P.PN ---
Subjective Progress Note Date: 07/27/20 Principal diagnosis: Cardiac arrest, acute hypoxic respiratory failure secondary to cardiac arrest This is a 65-year-old gentleman with a history of paroxysmal atrial fibrillation , hypertension, hyperlipidemia, chronic tobacco dependence, peripheral artery disease with previous aorto bifemoral bypass in 2004. He was here in May 2020 for a non-ST segment elevation myocardial infarction and found have significant multivessel coronary disease. On 05/24/2020 he had undergone an off pump coronary artery bypass graft surgery 4 with a BERNARDO to the LAD, reverse saphenous vein grafts to the RCA, radial artery to the intermediate coronary artery, reverse saphenous vein graft to the first diagonal branch. He has a history of severe ischemic cardiomyopathy with the most recent echocardiogram revealing ejection fraction 25-30%. The patient did have a LifeVest at home. Shortly after midnight his heard him making strange noises and found him unresponsive. He did not have his LifeVest on at the time. She initiated CPR EMS was called and he was brought here to the emergency room. He did develop return of spontaneous circulation. He is intubated on the mechanical ventilator. He is seen in the emergency room. Initial vent settings with assist control at a rate of 16, tidal volume 450, FiO2 100% and a PEEP of 5. Blood gases revealed a pO2 of 171, pCO2 34, pH 7.32 on 80% FiO2. Chest x-ray revealed moderate congestive heart failure with possible superimposed pneumonia especially in the right lung. Possible aspiration. Computed tomography scan of the brain revealed no acute intracranial findings. EKG reveals sinus rhythm with occasional PVCs and a right bundle branch block pattern. Repeat echocardiogram reveals severe global hypokinesis of the left ventricle with ejection fraction 20-25%. White count 15.0. Hemoglobin 14.3. Sodium 138. Potassium 4.8. Bicarb 14. Creatinine 1.26. Lactic acid 5.7. Troponin 0.068. AST 391. ALT 476. Velásquez virus by PCR not detected. 0.9 normal saline at 100 ML's per hour. On amiodarone at 1 mg per minute. Propofol at 20 mcg/kg/m. Initiated on bronchodilators. Reevaluated today on 07/26/20, remains in the ICU intubated and mechanically ventilated. His ventilator settings are assist control rate of 16 per volume is 450 FiO2 is 40% and PEEP of 5. BG showed a pO2 of 89 pCO2 of 32 pH of 7.41, he nce no changes were made in his ventilatory settings. His drips include propofol at 40 mcg/kg/m, he is on 0.9 normal saline at 50 mL per hour, and on amiodarone at 1 mg/m. Chest x-ray showed evidence of cardiomegaly, tiny left pleural effusion, patchy left basilar atelectasis, and endotracheal tube was noted to be sitting high in the trachea, this was advanced about 2.5 cm down WBC count is 18.2 hemoglobin is 13.6. Basic metabolic profile is normal, transaminases are slightly elevated including AST of 170 and ALT of 367. Reevaluated today on 07/27/20, patient remains in the ICU, intubated and mechanically ventilated. He is on assist control rate of 16 tidal volume is 450 FiO2 is 40% and PEEP of 5. ABG showed a pO2 of 88 pCO2 of 32 pH of 7.43, hence he remained on the same ventilator settings. Hemodynamically the patient is not requiring any pressors. However because of his initial presentation of ventricular fibrillation, patient remains on amiodarone at 1 mg/m, he is on propofol at 40 mcg/kg/m, and on 0.9 normal saline at 50 mL per hour. Patient is quite sedated, I recommended holding propofol, and I came back to assess his mental status, patient was not opening eyes, was not following any instructions, he was noted to be extremely agitated, obtunded, and again not able to follow any instructions he was extremely tachypneic and tachycardic has had to place him back on sedation/propofol. I recommended a neurological consultation on this patient as the patient may have developed significant anoxic brain injury. Patient apparently had a long downtime when he arrested. Patient is known to have history of severe LV dysfunction ejection fraction is 20-25%, and he was not wearing his LifeVest at the time of his cardiac arrest. Objective - Vital Signs Vital signs: Vital Signs Temp 98.9 F 07/27/20 12:00 Pulse 65 07/27/20 15:00 Resp 45 H 07/27/20 15:00 BP 104/53 07/27/20 12:00 Pulse Ox 97 07/27/20 15:00 Intake & Output 12/17/20 12/18/20 12/18/20 18:59 06:59 18:59 Intake Total 5297.026 0569.092 715.613 Output Total 1540 900 575 Balance -398.205 229.092 140.613 Weight 79 kg 79 kg Intake: IV 650 550 450 Sodium Chloride 0.9% 1, 650 550 450 000 ml @ 50 mls/hr IV . Q20H [facility] Rx#:[id number] Intake, IV Titration 491.795 579.092 265.613 Amount Amiodarone 360 mg In 343.887 347.221 176.665 Dextrose 5% in Water 200 ml @ 1 MG/MIN 33.333 mls/ hr IV .Q6H [facility] Rx#: [id number] propofoL 1,000 mg In 147.908 231.871 88.948 Empty Bag 1 bag @ Titrate IV .Q0M [facility] Rx#: [id number] Output: Gastric Drainage 700 Urine 840 900 575 Other: Voiding Method Indwelling Catheter Indwelling Catheter Indwelling Catheter ABP, PAP, CO, CI - Last Documented Arterial Blood Pressure 122/49 - Exam GENERAL EXAM: Revealed a 65-year-old white male sedated and mechanically ventilated, in no distress. HEAD: Normocephalic. Normocephalic. ENT: PERRLA, EOMI, no icterus, endotracheal tube and orogastric tubes are intact. CHEST: No chest wall deformity. LUNGS: Equal air entry no crackles or rhonchi or wheezes.. CVS: S1 and S2 normal with an audible murmur, regular rhythm. ABDOMEN: No hepatosplenomegaly, normal bowel sounds, no guarding or rigidity. SPINE: No scoliosis or deformity SKIN: No rashes CENTRAL NERVOUS SYSTEM: Off sedation, patient was extremely obtunded, restless, agitated, and was not comprehending any verbal stimuli. Psychiatric: Could not assess. EXTREMITIES: There is trace peripheral edema. No clubbing, no cyanosis. Peripheral pulses are intact. - Labs CBC & Chem 7: 07/27/20 04:30 07/27/20 04:30 Labs: Abnormal Lab Results - Last 24 Hours (Table) 07/26/20 07/26/20 07/27/20 Range/Units 18:04 18:21 04:30 WBC (3.8-10.6) k/uL RBC (4.30-5.90) m/uL Hgb (13.0-17.5) gm/dL Hct (39.0-53.0) % Plt Count (150-450) k/uL Neutrophils # (1.3-7.7) k/uL ABG pCO2 (35-45) mmHg Sodium 136 L (137-145) mmol/L Chloride 109 H (98-107) mmol/L Creatinine 1.33 H (0.66-1.25) mg/dL Glucose 111 H (74-99) mg/dL POC Glucose (mg/dL) 65 L 244 H (75-99) mg/dL Calcium 8.2 L (8.4-10.2) mg/dL ALT 248 H (4-49) U/L Total Protein 5.9 L (6.3-8.2) g/dL Albumin 3.2 L (3.5-5.0) g/dL 07/27/20 07/27/20 07/27/20 Range/Units 04:30 05:37 12:04 WBC 12.9 H (3.8-10.6) k/uL RBC 3.74 L (4.30-5.90) m/uL Hgb 11.7 L (13.0-17.5) gm/dL Hct 34.6 L (39.0-53.0) % Plt Count 136 L (150-450) k/uL Neutrophils # 10.2 H (1.3-7.7) k/uL ABG pCO2 32 L (35-45) mmHg Sodium (137-145) mmol/L Chloride (98-107) mmol/L Creatinine (0.66-1.25) mg/dL Glucose (74-99) mg/dL POC Glucose (mg/dL) 124 H (75-99) mg/dL Calcium (8.4-10.2) mg/dL ALT (4-49) U/L Total Protein (6.3-8.2) g/dL Albumin (3.5-5.0) g/dL Microbiology - Last 24 Hours (Table) 07/25/20 13:00 Gram Stain - Final Sputum Sputum Culture - Final Assessment and Plan Assessment: Impression: Acute hypoxic respiratory failure secondary to cardiopulmonary arrest. Patient had ventricular fibrillation secondary to severe cardiomyopathy and LV dysfunction. Suspect severe anoxic brain injury secondary to cardiac arrest. Severe cardiomyopathy and LV dysfunction. Patient was not wearing his LifeVest at the time of his cardiac arrest. Severe ischemic cardiomyopathy. Recent history of bypass grafting 4 that was on May 24 2020. Paroxysmal atrial fibrillation. History of left ventricular thrombus. Benign essential hypertension. Peripheral vessel occlusive disease and previous aortobifemoral bypass in 2004. History of CVA and left hand weakness in March of 2020 Recommendation: Continue ventilatory support. Placed back on sedation after holding propofol for an hour. Daily interruption of sedation and assessment of mental status as the patient may have developed anoxic brain injury Initiated a neurological consultation on this patient. Daily monitoring of chest x-ray and ABG. GI and DVT prophylaxis. Continue cardiac meds as per cardiology on the case. Consider repeating the CT of the head. Neurology would likely recommend EEG on this patient. Overall prognosis is extremely poor and guarded, we will continue to follow. Critical care time is greater than 30 minutes. Time with Patient: Greater than 30
--- NOTE | 2020-07-27 16:04 | P.PN ---
Progress Note - Text Progress Note Date: 07/27/20 Chief Complaint: Patient collapsed History of presenting complaint: This is a 65-year-old patient of Dr. Rosalino Mcallister. Patient was here in the hospital in March of this year with a stroke and left hand weakness. CHF. Atrial fibrillation. Left ventricular thrombus. Has a history of AAA repair. Patient's heard a thud in the living room and found him on the floor. She started doing chest compressions. 911 was called. Patient did receive DC shock at least 2, IV amiodarone, fluid bolus, epinephrine at least 3 doses and patient was brought to the ER. She did resume his circulation. Initially patient was apneic and no pulse. Patient intubated here. Started on amiodarone and propofol. Both cardiology and legal executive were consulted. Tiqui-XSI-ar the ventilator. FiO2 of 40% and a PEEP of 5. Drips include IV amiodarone propofol. OG tube in place Review of systems cannot be done: Patient intubated Active Medications Albuterol/Ipratropium (Ipratropium-Albuterol 3 Ml Neb) 3 ml INHALATION RT-Q4H [facility] Last Admin: 07/27/20 15:44 Dose: 3 ml Documented by: Albuterol/Ipratropium (Ipratropium-Albuterol 3 Ml Neb) 3 ml INHALATION RT-Q2H PRN PRN Reason: Shortness Of Breath Or Wheezing Amlodipine Besylate (Amlodipine 5 Mg Tab) 5 mg PO DAILY@1200 [facility] Last Admin: 07/27/20 12:11 Dose: 5 mg Documented by: Artificial Tears (Artificial Tears-Hypromellose Drops 15 Ml Btl) 1 drops BOTH EYES Q4HR PRN PRN Reason: Dry Eye(s) Aspirin (Aspirin 325 Mg Tab) 325 mg PO DAILY [facility] Last Admin: 07/27/20 08:10 Dose: 325 mg Documented by: Atorvastatin Calcium (Atorvastatin 40 Mg Tab) 40 mg PO QAM [facility] Last Admin: 07/27/20 08:10 Dose: 40 mg Documented by: Chlorhexidine Gluconate (Chlorhexidine Gluconate 15 Ml Cup) 15 ml MUCOUS MEM BID [facility] Last Admin: 07/27/20 08:10 Dose: 15 ml Documented by: Clopidogrel Bisulfate (Clopidogrel 75 Mg Tab) 75 mg PO DAILY [facility] Last Admin: 07/27/20 08:10 Dose: 75 mg Documented by: Famotidine (Famotidine 20 Mg/2 Ml Vial) 20 mg IV Q12HR [facility] Last Admin: 07/27/20 08:10 Dose: 20 mg Documented by: Sodium Chloride (Saline 0.9%) 1,000 mls @ 50 mls/hr IV .Q20H [facility] Last Admin: 07/27/20 03:03 Dose: 50 mls/hr Documented by: Propofol 1,000 mg/ IV Solution 100 mls @ 0 mls/hr IV .Q0M [facility]; Protocol Last Admin: 07/27/20 12:14 Dose: 40 mcg/kg/min, 18.96 mls/hr Documented by: Amiodarone HCl 360 mg/ (Dextrose/Water) 200 mls @ 33.333 mls/hr IV .Q6H [facility]; Protocol Last Admin: 07/27/20 08:20 Dose: 1 mg/min, 33.333 mls/hr Documented by: Insulin Aspart (Insulin Aspart (Novolog) 100 Unit/Ml Vial) 0 unit SQ Q6H [facility]; Protocol Last Admin: 07/27/20 12:11 Dose: Not Given Documented by: Lisinopril (Lisinopril 10 Mg Tab) 5 mg PO DAILY@1200 [facility] Last Admin: 07/27/20 12:11 Dose: 5 mg Documented by: Metoprolol Tartrate (Metoprolol Tartrate 50 Mg Tab) 50 mg PO BID [facility] Last Admin: 07/27/20 08:10 Dose: 50 mg Documented by: Morphine Sulfate (Morphine Sulfate 4 Mg/Ml Syringe) 4 mg IV Q2HR PRN PRN Reason: Pain Scale 8 to 10 Last Admin: 07/26/20 23:43 Dose: 4 mg Documented by: Multi-Ingred Cream/Lotion/Oil/Oint (Artificial Tears Ointment 3.5 Gm Tube) 1 applic BOTH EYES Q4HR PRN PRN Reason: Dry Eye(s) Naloxone HCl (Naloxone 0.4 Mg/Ml 1 Ml Vial) 0.2 mg IV Q2M PRN PRN Reason: Opioid Reversal Physical examination: VITAL SIGNS: 98.9, 75, 22, 115/52, GENERAL:, laying in bed, intubated. EYES: Pupils equal. Conjunctiva normal. HEENT: External appearance of nose and ears normal, oral cavity endotracheal tube with OG tube. NECK: JVD unable to assess masses not palpable. HEART: First and second heart sounds are normal; no edema. LUNGS: Respiratory rate increased; decreased breath sounds. ABDOMEN: Soft, nontender, liver spleen not palpable, no masses palpable. PSYCH: Sedatedl. INVESTIGATIONS, reviewed in the clinical context: July 27: White count 12.9 hemoglobin 11.7 platelets 136 potassium 4.2 creatinine 1.33 July 26: White count 18.2 hemoglobin 13.6 platelets 7.78 potassium 4.9 creatinine 1.20 bicarbonate 40 White count 15 hemoglobin 14.3 platelets 155 Potassium 4.8 creatinine 1.26 Lactic acid 9.9 AST 391 ALT 476 Troponin I 0.068 Cordarone Y Narayan P/Cr-not detected EKG tracing personally reviewed by me-right bundle branch block pattern with PVC and nonspecific ST segment changes Chest x-ray film personally reviewed by [id number] megaly, some infiltrates Computed tomography scan of the brain-nil acute 2-D echocardiogram-EF 20-25%, severe global hypokinesia Previous testing: From 03/30/2020-carotid Doppler-up in the stenosis Cardiac catheterization in March 2020-multivessel coronary artery disease. With left ventricular thrombus Assessment: -sudden cardiac -Cardiac arrest witnessed, in a patient with known triple- vessel coronary artery disease. Back in March of this year , was seen by [facility]dioth[facility]acic team Dr. Gleason. Given then, acute stroke, left ventricle thrombus. It was decided that patient was very high risk for cardiac bypass and he was to be managed medically. -Coronary artery [id number] as per cardiac catheterization March 2020 -Chronic congestive heart failure from systolic dysfunction EF 20-25%, from coronary artery disease -Left ventricular thrombus, as per cardiac catheterization in March 2020-follow as per cardiology -Essential hypertension -Hyperlipidemia -Patient has a life vest-plan per cardiology to have an ICD 1 stable -Acute hypoxic respiratory failure currently patient on the ventilator support- slow to respond Plan: Patient intubated. On the ventilator. On IV propofol IV amiodarone. Continue DuoNeb, amlodipine, aspirin, Lipitor, Plavix, Lopressor. Spoke to Lily ARREOLA from cardiology to see if anticoagulation are needed based on the cardiac catheter results showing the left ventricular thrombus in March from this year.
[2020-07-27 18:02] LABS: Glucose,Whole Blood 90 mg/dL (75-99)
--- NOTE | 2020-07-27 19:59 | P.CNNES ---
History of Present Illness Consult date: 07/27/20 Requesting physician: Guillermo Macias Reason for Consult: Cardiac arrest, altered mental status History of Present Illness: Patient is a 65-year-old male arrived to the hospital by ambulance on 07/25/2020 just past the midnight at 12:30 AM. due to cardiac arrest. Patient's has reported that she had been sleeping and heard the patient make funny noises and she found him unresponsive. EMS was called and she started doing CPR. When they arrived, they found patient in ventricular fibrillation on the monitor. They began to perform CPR. Downtime was reported as 20 minutes. Patient was brought to the hospital and patient already had return of spontaneous circulation. Patient was intubated. Patient does have a life vest, but he was not wearing at the time. In the ER patient was showing some meaningful respon se, as it was noted that he was trying to pull at the ET tube. Computed tomography scan of head was normal, EKG showed sinus rhythm with frequent PVCs. Left axis deviation and right bundle branch block. 2-D echo shows sinus rhythm, left ventricle is moderately dilated. Left ventricular wall thickness is normal. Severe global hypokinesis of left ventricle. EF is between 20-25%. Chest x-ray from today showed left lower lobe infiltrate and/or small left pleural effusion. Patient's blood test on arrival showed WBC 15.0 hemoglobin 14.3 and platelets were normal. PT/PTT normal. Electrolytes are normal, BUN 20, creatinine 1.26. Plasma lactic acid was 9.9. AST 391, ALT 476 and troponin was elevated 0.068. Velásquez virus PCR is negative. Patient has history of MO on 03/29/2020. At present patient is receiving propofol 40 g. Per nursing report, whenever the sedation was discontinued, he opens his eyes and follows commands. Review of Systems ROS unobtainable: due to endotracheal tube, due to mental status Past Medical History Past Medical History: Coronary Artery Disease (CAD), Heart Failure, CVA/TIA, Myocardial Infarction (MO) Additional Past Medical History / Comment(s): hospitalized 03/29/20 with stroke with left hand weakness, CHF, episode of a -fib , Left ventricular thrombus., previous cva's found on testing., Hx of AAA repair 2004 and due to stents he is unable to have MRI greater than 3.5*. , tinnitus , hx diverticulitis. Last Myocardial Infarction Date:: 03/29/20 History of Any Multi-Drug Resistant Organisms: None Reported Past Surgical History: Heart Catheterization, Orthopedic Surgery, Tonsillectomy Additional Past Surgical History / Comment(s): bypass sx in left leg, AAA repair 2004, jason carpal tunnel, rt hand X2, KASSIE. Past Anesthesia/Blood Transfusion Reactions: No Reported Reaction Additional Past Anesthesia/Blood Transfusion Reaction / Comment(s): . Past Psychological History: No Psychological Hx Reported Smoking Status: Former smoker Past Alcohol Use History: None Reported Past Drug Use History: None Reported - Past Family History Mother Family Medical History: COPD Father Family Medical History: Myocardial Infarction (MO) Additional Family Medical History / Comment(s): from Brain aneurysm family Family Medical History: No Reported History Medications and Allergies Home Medications Medication Instructions Recorded Confirmed Type Clopidogrel [Plavix] 75 mg PO DAILY #30 tab 04/01/20 07/25/20 Rx Atorvastatin [Lipitor] 40 mg PO QAM 05/17/20 07/25/20 History Acetaminophen Tab [Tylenol] 1,000 mg PO Q6HR PRN tab 05/29/20 07/25/20 Rx Aspirin 325 mg PO DAILY #30 tab 05/29/20 07/25/20 Rx Metoprolol Tartrate [Lopressor] 50 mg PO BID #60 tab 05/29/20 07/25/20 Rx Pantoprazole [Protonix] 40 mg PO AC-BRKFST #30 tablet.dr 05/29/20 07/25/20 Rx amLODIPine [Norvasc] 5 mg PO DAILY@1200 #30 tab 05/29/20 07/25/20 Rx lisinopriL [Zestril] 5 mg PO DAILY@1200 #30 tab 05/29/20 07/25/20 Rx Sennosides-Docusate Sodium 2 tab PO HS PRN 07/25/20 07/25/20 History [Senokot-S] Allergies Allergy/AdvReac Type Severity Reaction Status Date / Time Tetracyclines Allergy "made me Verified 07/25/20 08:37 sleep for a week" Physical Examination - Vital Signs Vital Signs: Vital Signs Temp Pulse Resp BP Pulse Ox 07/27/20 19:24 78 07/27/20 19:10 72 07/27/20 19:00 73 26 H 97 12/18/20 18:00 71 20 95 07/27/20 17:00 72 20 98 07/27/20 16:00 99.5 F 68 17 100 07/27/20 15:45 69 07/27/20 15:00 65 45 H 97 07/27/20 14:00 69 20 98 07/27/20 13:00 71 18 98 07/27/20 12:00 98.9 F 75 22 98 07/27/20 11:55 75 07/27/20 11:43 76 07/27/20 11:00 67 22 98 07/27/20 10:00 67 20 99 07/27/20 09:00 70 19 99 07/27/20 08:06 75 07/27/20 08:00 99.7 F H 81 20 104/53 99 07/27/20 07:51 76 07/27/20 07:00 69 17 99 07/27/20 06:00 71 18 98 07/27/20 05:00 69 18 98 07/27/20 04:00 99.1 F 64 16 98 07/27/20 03:39 66 07/27/20 03:26 67 07/27/20 03:00 63 19 104/53 100 07/27/20 02:00 68 18 99 07/27/20 01:00 69 18 99 07/27/20 00:22 68 18 100 07/27/20 00:00 100.4 F H 71 18 129/71 99 07/26/20 23:53 71 07/26/20 23:36 75 07/26/20 23:00 66 22 100 07/26/20 22:00 64 18 99 07/26/20 21:00 68 20 99 07/26/20 20:00 99.1 F 83 28 H 95 Intake and Output 07/27/20 07/27/20 07/27/20 06:59 14:59 22:59 Intake Total 709.295 865.613 423.22 Output Total 795 515 230 Balance -85.705 350.613 193.22 Intake: IV 400 400 250 Sodium Chloride 0.9% 1, 400 400 250 000 ml @ 50 mls/hr IV . Q20H [facility] Rx#:[id number] Intake, IV Titration 309.295 465.613 93.22 Amount Amiodarone 360 mg In 147.221 376.665 Dextrose 5% in Water 200 ml @ 1 MG/MIN 33.333 mls/ hr IV .Q6H [facility] Rx#: [id number] propofoL 1,000 mg In 162.074 88.948 93.22 Empty Bag 1 bag @ Titrate IV .Q0M [facility] Rx#: [id number] Tube Feeding 50 Other 30 Output: Urine 795 515 230 Other: Voiding Method Indwelling Catheter Indwelling Catheter Indwelling Catheter Weight 79 kg 79 kg ABP, PAP, CO, CI - Last 8 Hours Arterial Blood Pressure 135/49 Arterial Blood Pressure 119/47 Arterial Blood Pressure 124/46 Arterial Blood Pressure 129/50 Arterial Blood Pressure 122/49 Arterial Blood Pressure 124/52 Arterial Blood Pressure 107/49 Arterial Blood Pressure 115/52 On examination patient is an elderly male, intubated, sedated. Patient's pupils are round and reacting to light. Oculocephalics are present. Corneals are present. Patient is breathing over the ventilator. Per nursing report, when the sedation was discontinued, he opens his eyes and follows commands. Reflexes are absent in the upper limbs, 1 at the right knee, 2+ on the left. Absent ankles and plantars are mute. Patient is sedated therefore sensory, cerebellar functions could not be tested. Bruit could not be heard. S1 and S2 audible. Patient has peripheral edema. Abdomen is soft. Results - Laboratory Findings CBC and BMP: 07/27/20 04:30 07/27/20 04:30 Abnormal Lab Findings: Abnormal Labs 07/25/20 07/25/20 07/25/20 00:35 00:51 00:51 WBC 15.0 H RBC Hgb Hct MCHC 30.9 L Plt Count Neutrophils # Lymphocytes # 6.1 H Monocytes # 1.1 H Basophils # 0.3 H ABG pH ABG pCO2 ABG pO2 ABG HCO3 ABG Total CO2 ABG O2 Saturation Sodium Chloride Carbon Dioxide Creatinine Glucose POC Glucose (mg/dL) 385 H Plasma Lactic Acid Abdiel Calcium AST ALT Troponin I Total Protein Albumin Urine Protein 1+ H Urine Blood Trace H Urine RBC 11 H Urine WBC 6 H Urine Bacteria Rare H Urine Mucus Rare H Urine Sperm Occasional H 07/25/20 07/25/20 07/25/20 00:51 00:51 00:51 WBC RBC Hgb Hct MCHC Plt Count Neutrophils # Lymphocytes # Monocytes # Basophils # ABG pH ABG pCO2 ABG pO2 ABG HCO3 ABG Total CO2 ABG O2 Saturation Sodium Chloride 109 H Carbon Dioxide 14 L Creatinine 1.26 H Glucose 265 H POC Glucose (mg/dL) Plasma Lactic Acid Abdiel 9.9 H* Calcium AST 391 H ALT 476 H Troponin I 0.068 H* Total Protein Albumin Urine Protein Urine Blood Urine RBC Urine WBC Urine Bacteria Urine Mucus Urine Sperm 07/25/20 07/25/20 07/25/20 01:59 04:40 08:40 WBC RBC Hgb Hct MCHC Plt Count Neutrophils # Lymphocytes # Monocytes # Basophils # ABG pH 7.22 L ABG pCO2 ABG pO2 80 L ABG HCO3 14 L ABG Total CO2 15 L ABG O2 Saturation 93.7 L Sodium Chloride Carbon Dioxide Creatinine Glucose POC Glucose (mg/dL) Plasma Lactic Acid Abdiel 5.5 H* 5.6 H* Calcium AST ALT Troponin I Total Protein Albumin Urine Protein Urine Blood Urine RBC Urine WBC Urine Bacteria Urine Mucus Urine Sperm 07/25/20 07/25/20 07/25/20 09:00 11:18 12:21 WBC RBC Hgb Hct MCHC Plt Count Neutrophils # Lymphocytes # Monocytes # Basophils # ABG pH 7.32 L ABG pCO2 34 L 31 L ABG pO2 171 H ABG HCO3 17 L 17 L ABG Total CO2 18 L 18 L ABG O2 Saturation 98.3 H 97.4 H Sodium Chloride Carbon Dioxide Creatinine Glucose POC Glucose (mg/dL) Plasma Lactic Acid Abdiel 5.7 H* Calcium AST ALT Troponin I Total Protein Albumin Urine Protein Urine Blood Urine RBC Urine WBC Urine Bacteria Urine Mucus Urine Sperm 07/25/20 07/25/20 07/25/20 14:25 15:27 18:43 WBC RBC Hgb Hct MCHC Plt Count Neutrophils # Lymphocytes # Monocytes # Basophils # ABG pH ABG pCO2 ABG pO2 ABG HCO3 ABG Total CO2 ABG O2 Saturation Sodium Chloride Carbon Dioxide Creatinine Glucose POC Glucose (mg/dL) 127 H Plasma Lactic Acid Abdiel 5.7 H* 5.8 H* Calcium AST ALT Troponin I Total Protein Albumin Urine Protein Urine Blood Urine RBC Urine WBC Urine Bacteria Urine Mucus Urine Sperm 07/25/20 07/26/20 07/26/20 21:40 04:24 04:24 WBC 18.2 H RBC Hgb Hct MCHC Plt Count Neutrophils # 15.1 H Lymphocytes # Monocytes # 1.4 H Basophils # ABG pH ABG pCO2 ABG pO2 ABG HCO3 ABG Total CO2 ABG O2 Saturation Sodium Chloride 111 H Carbon Dioxide 14 L Creatinine Glucose 106 H POC Glucose (mg/dL) Plasma Lactic Acid Abdiel 5.5 H* Calcium AST 170 H ALT 367 H Troponin I Total Protein Albumin Urine Protein Urine Blood Urine RBC Urine WBC Urine Bacteria Urine Mucus Urine Sperm 07/26/20 07/26/20 07/26/20 05:10 05:31 18:04 WBC RBC Hgb Hct MCHC Plt Count Neutrophils # Lymphocytes # Monocytes # Basophils # ABG pH ABG pCO2 32 L ABG pO2 ABG HCO3 20 L ABG Total CO2 ABG O2 Saturation Sodium Chloride Carbon Dioxide Creatinine Glucose POC Glucose (mg/dL) 103 H 65 L Plasma Lactic Acid Abdiel Calcium AST ALT Troponin I Total Protein Albumin Urine Protein Urine Blood Urine RBC Urine WBC Urine Bacteria Urine Mucus Urine Sperm 07/26/20 07/27/20 07/27/20 18:21 04:30 04:30 WBC 12.9 H RBC 3.74 L Hgb 11.7 L Hct 34.6 L MCHC Plt Count 136 L Neutrophils # 10.2 H Lymphocytes # Monocytes # Basophils # ABG pH ABG pCO2 ABG pO2 ABG HCO3 ABG Total CO2 ABG O2 Saturation Sodium 136 L Chloride 109 H Carbon Dioxide Creatinine 1.33 H Glucose 111 H POC Glucose (mg/dL) 244 H Plasma Lactic Acid Abdiel Calcium 8.2 L AST ALT 248 H Troponin I Total Protein 5.9 L Albumin 3.2 L Urine Protein Urine Blood Urine RBC Urine WBC Urine Bacteria Urine Mucus Urine Sperm 07/27/20 07/27/20 05:37 12:04 WBC RBC Hgb Hct MCHC Plt Count Neutrophils # Lymphocytes # Monocytes # Basophils # ABG pH ABG pCO2 32 L ABG pO2 ABG HCO3 ABG Total CO2 ABG O2 Saturation Sodium Chloride Carbon Dioxide Creatinine Glucose POC Glucose (mg/dL) 124 H Plasma Lactic Acid Abdiel Calcium AST ALT Troponin I Total Protein Albumin Urine Protein Urine Blood Urine RBC Urine WBC Urine Bacteria Urine Mucus Urine Sperm Assessment and Plan Assessment: * Status post witnessed Cardiac arrest at home. Although reported fairly long down time, but patient is showing significant meaningful response. * Acute hypoxic respiratory failure secondary to cardiopulmonary arrest. * Severe cardiomyopathy and left ventricular dysfunction. * History of ischemic CVA with left hand weakness 03/29/2020. * Paroxysmal atrial fibrillation. * History of left-ventricular thrombus. * Hypertension * History of tobacco use * Hyperlipidemia Plan: * Patient is sedated at this time. Per nursing report, patient is showing meaningful response whenever the sedation is discontinued. * EEG was performed, which revealed abnormal sleep EEG because of intermittent generalized suppressed activity for 1-2 seconds. This can be seen with hypoxic anoxic encephalopathies. However fairly well preserved background was also seen during most of the study pertaining to relatively good prognosis. Clinical correlation recommended. No epileptiform activity was seen. * Neurology service not available over the weekend. * Medical management as per cardiology/IM/critical care. * Dr. Constantin Curtis Will resume neurology service on Thursday.
[2020-07-27] MEDS ORDERED: propofoL 100 ML IV ONE (21:00)
--- NOTE | 2020-07-27 22:59 | EEG ---
ELECTROENCEPHALOGRAM REPORT DATE OF SERVICE: 07/27/2020. PREAMBLE: This is a 65-year-old male with cardiac arrest. EEG FINDINGS: A 21 channel portable EEG recorded in a patient utilizing 10/20 international system with referential bipolar montage. The patient was asleep during most of the study with the presence of low amplitude delta and theta activity with vertex waves and sleep spindles. Some brief periods of relatively better background was seen consisting of low amplitude, some alpha and beta activity. Intermittent periods of suppressed pattern were also seen lasting for 1-2 seconds. Fully awake pattern was not seen. No focal or generalized epileptiform activity was seen. The photic driving response was not seen. IMPRESSION: This is mainly a sleep EEG. Probably abnormal because of the presence of intermittent generalized suppressed activity for 1-2 seconds. This can be seen with hypoxic anoxic encephalopathies. However, fairly well preserved background was also seen during most of the study pertaining to relatively good prognosis. However, clinical correlation is strongly recommended. Consider followup EEG, if clinically indicated. No epileptiform activity was seen. MMDEIONL / ZORANN: [id number] /
[2020-07-27 23:25] LABS: Glucose,Whole Blood 98 mg/dL (75-99)
[2020-07-28] MEDS: INSULIN ASPART (NovoLOG) 100 UNIT/ML VIAL SQ SCH ×5 (00:09→23:59)
[2020-07-28] MEDS: IPRATROPIUM-ALBUTEROL 3 ML NEB INHALATION SCH ×6 (03:28→23:41)
[2020-07-28] MEDS: AMIODARONE 360 MG in DEXTROSE 5% IN WATER 200 ML IV SCH ×8 (03:28→22:53)
[2020-07-28 05:33] LABS: Glucose,Whole Blood 127 mg/dL (75-99)
[2020-07-28 05:43] LABS: Basophils % (A) 0 %; Eosinophils # (A) 0.2 k/uL (0-0.7); Eosinophils % (A) 1 %; HCT 31.4 % (39.0-53.0); HGB 10.8 gm/dL (13.0-17.5); Lymphocytes # (A) 1.2 k/uL (1.0-4.8); Lymphocytes % (A) 10 %; MCH 31.3 pg (25.0-35.0); MCHC 34.3 g/dL (31.0-37.0); MCV 91.1 fL (80.0-100.0); Mean Platelet Volume 8.4; Monocytes # (A) 0.7 k/uL (0-1.0); Monocytes % (A) 6 %; Neutrophils # (A) 9.7 k/uL (1.3-7.7); Neutrophils % (A) 82 %; Platelet Count 112 k/uL (150-450); RBC 3.45 m/uL (4.30-5.90); RDW 14.1 % (11.5-15.5); WBC 11.9 k/uL (3.8-10.6)
[2020-07-28 05:52] LABS: Albumin 2.9 g/dL (3.5-5.0); Potassium 3.8 mmol/L (3.5-5.1); Total Bilirubin 0.7 mg/dL (0.2-1.3); Total Protein 5.6 g/dL (6.3-8.2)
[2020-07-28 05:59] LABS: ABG HCO3 22 mmol/L (21-25); ABG Oxygen Saturation 97.4 % (94-97); ABG PCO2 33 mmHg (35-45); ABG PH 7.44 (7.35-7.45); ABG PO2 98 mmHg (83-108); ABG TCO2 23 mmol/L (19-24); Allen Test Performed? Yes
--- NOTE | 2020-07-28 07:38 | XR ---
EXAMINATION TYPE: XR chest 1V portable DATE OF EXAM: 07/28/2020 COMPARISON: 07/27/2020 HISTORY: Tube placement TECHNIQUE: Single frontal view of the chest is obtained. FINDINGS: There is persistent left-sided consolidation and pleural effusion. Subsegmental right yaakov hilar consolidation. ET, NG tube and central line stable. No sizable thorax. Postoperative changes no chikis and there is arthropathy of the shoulders. IMPRESSION: Bilateral infiltrate and small left effusion. Findings stable.
[2020-07-28] MEDS: SODIUM CHLORIDE 0.9% 1,000 ML IV SCH ×2 (08:38→09:45)
[2020-07-28] MEDS: ATORVASTATIN 40 MG TAB PO SCH (09:14)
[2020-07-28] MEDS: ASPIRIN 325 MG TAB PO SCH (09:14)
[2020-07-28] MEDS: FAMOTIDINE 20 MG/2 ML VIAL IV SCH (09:14)
[2020-07-28] MEDS: CHLORHEXIDINE GLUCONATE 15 ML CUP MUCOUS MEM SCH ×2 (09:14→20:53)
[2020-07-28] MEDS: CLOPIDOGREL 75 MG TAB PO SCH (09:14)
[2020-07-28] MEDS: METOPROLOL TARTRATE 50 MG TAB PO SCH ×2 (09:14→20:54)
[2020-07-28] MEDS: ACETAMINOPHEN TAB 325 MG TAB PO PRN (10:10)
[2020-07-28 11:37] LABS: Glucose,Whole Blood 140 mg/dL (75-99)
--- NOTE | 2020-07-28 11:42 | P.PN ---
Subjective Progress Note Date: 07/28/20 Patient is sedated and intubated. No acute events overnight reported by nursing staff. Objective - Vital Signs Vital signs: Vital Signs Temp 99.5 F 07/28/20 04:00 Pulse 82 07/28/20 07:46 Resp 24 07/28/20 07:00 BP 104/53 07/27/20 20:00 Pulse Ox 99 07/28/20 07:00 Intake & Output 07/27/20 07/28/20 07/28/20 18:59 06:59 18:59 Intake Total 0076.615 8736.804 317.744 Output Total 705 835 35 Balance 533.833 638.804 282.744 Weight 79 kg Intake: IV 600 600 50 Sodium Chloride 0.9% 1, 600 600 50 000 ml @ 50 mls/hr IV . Q20H [facility] Rx#:[id number] Intake, IV Titration 558.833 583.804 267.744 Amount Amiodarone 360 mg In 376.665 362.776 192.22 Dextrose 5% in Water 200 ml @ 1 MG/MIN 33.333 mls/ hr IV .Q6H [facility] Rx#: [id number] propofoL 1,000 mg In 182.168 221.028 75.524 Empty Bag 1 bag @ Titrate IV .Q0M [facility] Rx#: [id number] Tube Feeding 50 200 Other 30 90 Output: Urine 705 835 35 Other: Voiding Method Indwelling Catheter Indwelling Catheter ABP, PAP, CO, CI - Last Documented Arterial Blood Pressure 109/44 - Exam General: The patient is sedated and intubated Eye: there is normal conjunctiva bilaterally. Neck: The neck is supple, there is no JVD. Cardiovascular: Normal S1-S2, no S3-S4, no murmurs. Respiratory: Lungs with mechanical ventilator sounds Gastrointestinal: Abdomen is soft, nontender Musculoskeletal: There is no pedal edema. Skin: Skin is warm and dry - Labs CBC & Chem 7: 07/28/20 05:32 07/28/20 05:32 Labs: Abnormal Lab Results - Last 24 Hours (Table) 07/27/20 07/28/20 07/28/20 Range/Units 12:04 05:31 05:32 WBC (3.8-10.6) k/uL RBC (4.30-5.90) m/uL Hgb (13.0-17.5) gm/dL Hct (39.0-53.0) % Plt Count (150-450) k/uL Neutrophils # (1.3-7.7) k/uL ABG pCO2 (35-45) mmHg ABG O2 Saturation (94-97) % Sodium 136 L (137-145) mmol/L Chloride 109 H (98-107) mmol/L BUN 23 H (9-20) mg/dL Creatinine 1.39 H (0.66-1.25) mg/dL Glucose 131 H (74-99) mg/dL POC Glucose (mg/dL) 124 H 127 H (75-99) mg/dL Calcium 8.0 L (8.4-10.2) mg/dL ALT 140 H (4-49) U/L Total Protein 5.6 L (6.3-8.2) g/dL Albumin 2.9 L (3.5-5.0) g/dL 07/28/20 07/28/20 Range/Units 05:32 05:50 WBC 11.9 H (3.8-10.6) k/uL RBC 3.45 L (4.30-5.90) m/uL Hgb 10.8 L (13.0-17.5) gm/dL Hct 31.4 L (39.0-53.0) % Plt Count 112 L (150-450) k/uL Neutrophils # 9.7 H (1.3-7.7) k/uL ABG pCO2 33 L (35-45) mmHg ABG O2 Saturation 97.4 H (94-97) % Sodium (137-145) mmol/L Chloride (98-107) mmol/L BUN (9-20) mg/dL Creatinine (0.66-1.25) mg/dL Glucose (74-99) mg/dL POC Glucose (mg/dL) (75-99) mg/dL Calcium (8.4-10.2) mg/dL ALT (4-49) U/L Total Protein (6.3-8.2) g/dL Albumin (3.5-5.0) g/dL Microbiology - Last 24 Hours (Table) 07/27/20 00:15 Blood Culture - Preliminary Blood No Growth after 24 hours 07/25/20 13:00 Gram Stain - Final Sputum Sputum Culture - Final Assessment and Plan Assessment: This is a 65-year-old patient of Dr. Rosalino Mcallister. Patient was here in the hospital in March of this year with a stroke and left hand weakness. CHF. Atrial fibrillation. Left ventricular thrombus. Has a history of AAA repair. Patient's heard a thud in the living room and found him on the floor. She started doing chest compressions. 911 was called. Patient did receive DC shock at least 2, IV amiodarone, fluid bolus, epinephrine at least 3 doses and patient was brought to the ER. Patient intubated here. Started on amiodarone and propofol. Both cardiology and welfare eligibility interviewer were consulted. [id number] the ventilator. Drips include IV amiodarone propofol. OG tube in place Assessment: -Cardiac arrest, witnessed, in a patient with known triple-vessel coronary artery disease. -Coronary artery [id number] as per cardiac catheterization March 2020: Managed medically. Back in March of was seen by cardiothoracic team Dr. Gleason. Given then, acute stroke, left ventricle thrombus. It was decided that patient was very high risk for cardiac bypass and he was to be managed medically. -Chronic congestive heart failure from systolic dysfunction EF 20-25%, from coronary artery disease -Left ventricular thrombus, as per cardiac catheterization in March 2020-follow as per cardiology -Essential hypertension -Hyperlipidemia -Patient has a life vest at home-plan per cardiology to have an ICD 1 stable -Acute hypoxic respiratory failure currently patient on the ventilator support- slow to respond Plan: Patient intubated. On the ventilator. On IV propofol IV amiodarone. Continue DuoNeb, amlodipine, aspirin, Lipitor, Plavix, Lopressor. DVT prophylaxis with subcu heparin, GI prophylaxis with IV Protonix Anticoagulation per cardiology based on the cardiac catheter results showing the left ventricular thrombus in March from this year. Repeat lab work in the morning
[2020-07-28] MEDS: PANTOPRAZOLE 40 MG/10 ML VIAL IVP SCH (12:38)
[2020-07-28] MEDS: lisinopriL 10 MG TAB PO SCH (12:38)
[2020-07-28] MEDS: amLODIPine 5 MG TAB PO SCH (12:38)
--- NOTE | 2020-07-28 13:33 | P.PN ---
Subjective Progress Note Date: 07/28/20 Principal diagnosis: Cardiac arrest, acute hypoxic respiratory failure secondary to cardiac arrest This is a 65-year-old gentleman with a history of paroxysmal atrial fibrillation , hypertension, hyperlipidemia, chronic tobacco dependence, peripheral artery disease with previous aorto bifemoral bypass in 2004. He was here in May 2020 for a non-ST segment elevation myocardial infarction and found have significant multivessel coronary disease. On 05/24/2020 he had undergone an off pump coronary artery bypass graft surgery 4 with a BERNARDO to the LAD, reverse saphenous vein grafts to the RCA, radial artery to the intermediate coronary artery, reverse saphenous vein graft to the first diagonal branch. He has a history of severe ischemic cardiomyopathy with the most recent echocardiogram revealing ejection fraction 25-30%. The patient did have a LifeVest at home. Shortly after midnight his heard him making strange noises and found him unresponsive. He did not have his LifeVest on at the time. She initiated CPR EMS was called and he was brought here to the emergency room. He did develop return of spontaneous circulation. He is intubated on the mechanical ventilator. He is seen in the emergency room. Initial vent settings with assist control at a rate of 16, tidal volume 450, FiO2 100% and a PEEP of 5. Blood gases revealed a pO2 of 171, pCO2 34, pH 7.32 on 80% FiO2. Chest x-ray revealed moderate congestive heart failure with possible superimposed pneumonia especially in the right lung. Possible aspiration. Computed tomography scan of the brain revealed no acute intracranial findings. EKG reveals sinus rhythm with occasional PVCs and a right bundle branch block pattern. Repeat echocardiogram reveals severe global hypokinesis of the left ventricle with ejection fraction 20-25%. White count 15.0. Hemoglobin 14.3. Sodium 138. Potassium 4.8. Bicarb 14. Creatinine 1.26. Lactic acid 5.7. Troponin 0.068. AST 391. ALT 476. Velásquez virus by PCR not detected. 0.9 normal saline at 100 ML's per hour. On amiodarone at 1 mg per minute. Propofol at 20 mcg/kg/m. Initiated on bronchodilators. Reevaluated today on 07/26/20, remains in the ICU intubated and mechanically ventilated. His ventilator settings are assist control rate of 16 per volume is 450 FiO2 is 40% and PEEP of 5. BG showed a pO2 of 89 pCO2 of 32 pH of 7.41, he nce no changes were made in his ventilatory settings. His drips include propofol at 40 mcg/kg/m, he is on 0.9 normal saline at 50 mL per hour, and on amiodarone at 1 mg/m. Chest x-ray showed evidence of cardiomegaly, tiny left pleural effusion, patchy left basilar atelectasis, and endotracheal tube was noted to be sitting high in the trachea, this was advanced about 2.5 cm down WBC count is 18.2 hemoglobin is 13.6. Basic metabolic profile is normal, transaminases are slightly elevated including AST of 170 and ALT of 367. Reevaluated today on 07/27/20, patient remains in the ICU, intubated and mechanically ventilated. He is on assist control rate of 16 tidal volume is 450 FiO2 is 40% and PEEP of 5. ABG showed a pO2 of 88 pCO2 of 32 pH of 7.43, hence he remained on the same ventilator settings. Hemodynamically the patient is not requiring any pressors. However because of his initial presentation of ventricular fibrillation, patient remains on amiodarone at 1 mg/m, he is on propofol at 40 mcg/kg/m, and on 0.9 normal saline at 50 mL per hour. Patient is quite sedated, I recommended holding propofol, and I came back to assess his mental status, patient was not opening eyes, was not following any instructions, he was noted to be extremely agitated, obtunded, and again not able to follow any instructions he was extremely tachypneic and tachycardic has had to place him back on sedation/propofol. I recommended a neurological consultation on this patient as the patient may have developed significant anoxic brain injury. Patient apparently had a long downtime when he arrested. Patient is known to have history of severe LV dysfunction ejection fraction is 20-25%, and he was not wearing his LifeVest at the time of his cardiac arrest. Reevaluated today on 07/28/20, patient remains in the ICU, intubated and mechanically ventilated. He is on assist control rate of 16 tidal volume is 450 FiO2 is 40% PEEP of 5. Patient had an ABG showed a pO2 of 98 pCO2 of 33 pH of 7.44. Remains on propofol at 40 mcg/kg/m amiodarone at 1 mg/m patient remains on enteral feeding, vital hp bolus feedings. Patient spiked a fever earlier this morning temp is 101.2, hence I have recommended starting the patient empirically on Zosyn and starting the patient on Tylenol when necessary. His chest x-ray showed minimal bibasilar atelectasis or early infiltrates, patient was a great set up for aspiration pneumonia. Hence I will treat as such. WBC count today is 11.9 hemoglobin is 10.8. Electrolytes are normal. BUN is 23 creatinine is 1.39. EEG was suggestive of hypoxic anoxic encephalopathy however it was felt that the EEG showed preserved background pertaining to relatively g ood prognosis. Clinically the patient has been placed on sedation interruption, and he gets extremely agitated, restless, he was able to squeeze one hand only. Otherwise could not get a better assessment of mental status may eventually consider tomorrow placing the patient on Precedex instead of propofol and try to assess mental status exam on Precedex Objective - Vital Signs Vital signs: Vital Signs Temp 100.3 F H 07/28/20 12:00 Pulse 68 07/28/20 12:00 Resp 23 07/28/20 12:00 BP 104/53 07/27/20 20:00 Pulse Ox 99 07/28/20 12:00 Intake & Output 07/27/20 07/28/20 07/28/20 18:59 06:59 18:59 Intake Total 2934.258 3576.804 766.151 Output Total 705 835 255 Balance 533.833 638.804 511.151 Weight 79 kg Intake: IV 600 600 250 Sodium Chloride 0.9% 1, 600 600 250 000 ml @ 50 mls/hr IV . Q20H [facility] Rx#:[id number] Intake, IV Titration 558.833 583.804 286.151 Amount Amiodarone 360 mg In 376.665 362.776 192.22 Dextrose 5% in Water 200 ml @ 1 MG/MIN 33.333 mls/ hr IV .Q6H [facility] Rx#: [id number] propofoL 1,000 mg In 182.168 221.028 93.931 Empty Bag 1 bag @ Titrate IV .Q0M [facility] Rx#: [id number] Tube Feeding 50 200 200 Other 30 90 30 Output: Urine 705 835 255 Other: Voiding Method Indwelling Catheter Indwelling Catheter Indwelling Catheter ABP, PAP, CO, CI - Last Documented Arterial Blood Pressure 129/50 - Exam GENERAL EXAM: Revealed a 65-year-old white male sedated and mechanically ventilated, in no distress. HEAD: Normocephalic. Normocephalic. ENT: PERRLA, EOMI, no icterus, endotracheal tube and orogastric tubes are intact. CHEST: No chest wall deformity. LUNGS: Equal air entry no crackles or rhonchi or wheezes.. CVS: S1 and S2 normal with an audible murmur, regular rhythm. ABDOMEN: No hepatosplenomegaly, normal bowel sounds, no guarding or rigidity. SPINE: No scoliosis or deformity SKIN: No rashes CENTRAL NERVOUS SYSTEM: Off sedation, patient was agitated, and did not comprehend much, squeezed one had only. Upon verbal requests. Psychiatric: Could not assess. EXTREMITIES: There is trace peripheral edema. No clubbing, no cyanosis. Peripheral pulses are intact. - Labs CBC & Chem 7: 07/28/20 05:32 07/28/20 05:32 Labs: Abnormal Lab Results - Last 24 Hours (Table) 07/28/20 07/28/20 07/28/20 Range/Units 05:31 05:32 05:32 WBC 11.9 H (3.8-10.6) k/uL RBC 3.45 L (4.30-5.90) m/uL Hgb 10.8 L (13.0-17.5) gm/dL Hct 31.4 L (39.0-53.0) % Plt Count 112 L (150-450) k/uL Neutrophils # 9.7 H (1.3-7.7) k/uL ABG pCO2 (35-45) mmHg ABG O2 Saturation (94-97) % Sodium 136 L (137-145) mmol/L Chloride 109 H (98-107) mmol/L BUN 23 H (9-20) mg/dL Creatinine 1.39 H (0.66-1.25) mg/dL Glucose 131 H (74-99) mg/dL POC Glucose (mg/dL) 127 H (75-99) mg/dL Calcium 8.0 L (8.4-10.2) mg/dL ALT 140 H (4-49) U/L Total Protein 5.6 L (6.3-8.2) g/dL Albumin 2.9 L (3.5-5.0) g/dL 07/28/20 07/28/20 Range/Units 05:50 11:35 WBC (3.8-10.6) k/uL RBC (4.30-5.90) m/uL Hgb (13.0-17.5) gm/dL Hct (39.0-53.0) % Plt Count (150-450) k/uL Neutrophils # (1.3-7.7) k/uL ABG pCO2 33 L (35-45) mmHg ABG O2 Saturation 97.4 H (94-97) % Sodium (137-145) mmol/L Chloride (98-107) mmol/L BUN (9-20) mg/dL Creatinine (0.66-1.25) mg/dL Glucose (74-99) mg/dL POC Glucose (mg/dL) 140 H (75-99) mg/dL Calcium (8.4-10.2) mg/dL ALT (4-49) U/L Total Protein (6.3-8.2) g/dL Albumin (3.5-5.0) g/dL Microbiology - Last 24 Hours (Table) 07/27/20 00:15 Blood Culture - Preliminary Blood No Growth after 24 hours 07/25/20 13:00 Gram Stain - Final Sputum Sputum Culture - Final Assessment and Plan Assessment: Impression: Acute hypoxic respiratory failure secondary to cardiopulmonary arrest. Patient had ventricular fibrillation secondary to severe cardiomyopathy and LV dysfu nction. Suspect anoxic brain injury secondary to cardiac arrest. Severe cardiomyopathy and LV dysfunction. Patient was not wearing his LifeVest at the time of his cardiac arrest. Severe ischemic cardiomyopathy. Recent history of bypass grafting 4 that was on May 24 2020. Paroxysmal atrial fibrillation. History of left ventricular thrombus. Benign essential hypertension. Peripheral vessel occlusive disease and previous aortobifemoral bypass in 2004. History of CVA and left hand weakness in March of 2020 Possible aspiration pneumonia hence Zosyn will be started empirically Recommendation: Continue ventilatory support. Continue nutritional support/enteral feeding. Continue Daily interruption of sedation and assessment of mental status as the patient may have developed anoxic brain injury EEG findings were reviewed. Start patient empirically on Zosyn for presumptive aspiration pneumonia Daily monitoring of chest x-ray and ABG. GI and DVT prophylaxis. Continue cardiac meds Consider repeating the CT of the head. Early next week. Overall prognosis is extremely poor and guarded, we will continue to follow. Critical care time is greater than 30 minutes. Time with Patient: Greater than 30
[2020-07-28] MEDS: PIPERACILLIN-TAZOBACTAM 3.375 GM in SODIUM CHLORIDE 0.9% 100 ML IVPB SCH (16:23)
[2020-07-28 17:01] LABS: Glucose,Whole Blood 104 mg/dL (75-99)
[2020-07-28] MEDS: HEPARIN SODIUM,PORCINE 5,000 UNIT/ML 1 ML VIAL SQ SCH (20:53)
--- NOTE | 2020-07-28 21:09 | P.PN ---
Progress Note - Text 65-year-old male patient with ischemic cardio myopathy presenting with VF arrest. He still intubated and sedated and while the EEG suggests a variety of findings but no epileptiform activity is not really very helpful. He remains intubated and is very agitated when this is withdrawn. The ICU attending Dr. Toussaint plans to start Precedex instead of propofol and repeating an EEg Once the patient is extubated with adequately preserved mentation, we would recommend ICD implantation. At this point until his neurologic prognosis remains uncertain there are No plans for ICD implantation
[2020-07-28 23:57] LABS: Glucose,Whole Blood 102 mg/dL (75-99)
[2020-07-29] MEDS: IPRATROPIUM-ALBUTEROL 3 ML NEB INHALATION SCH ×6 (03:27→23:32)
[2020-07-29 04:41] LABS: ABG Base Excess -2.4 mmol/L; ABG HCO3 22 mmol/L (21-25); ABG Oxygen Saturation 96.6 % (94-97); ABG PCO2 34 mmHg (35-45); ABG PH 7.42 (7.35-7.45); ABG PO2 88 mmHg (83-108); ABG TCO2 23 mmol/L (19-24)
[2020-07-29 04:44] LABS: Allen Test Performed? no
[2020-07-29] MEDS: AMIODARONE 360 MG in DEXTROSE 5% IN WATER 200 ML IV SCH ×6 (04:49→16:28)
[2020-07-29 05:28] LABS: Glucose,Whole Blood 131 mg/dL (75-99)
[2020-07-29 05:36] LABS: Basophils # (A) 0.1 k/uL (0-0.2); Basophils % (A) 1 %; Eosinophils # (A) 0.3 k/uL (0-0.7); Eosinophils % (A) 3 %; HCT 31.8 % (39.0-53.0); HGB 10.8 gm/dL (13.0-17.5); Lymphocytes # (A) 0.8 k/uL (1.0-4.8); Lymphocytes % (A) 7 %; MCH 31.1 pg (25.0-35.0); MCHC 33.9 g/dL (31.0-37.0); MCV 91.6 fL (80.0-100.0); Mean Platelet Volume 9.2; Monocytes # (A) 0.9 k/uL (0-1.0); Monocytes % (A) 7 %; Neutrophils # (A) 9.3 k/uL (1.3-7.7); Neutrophils % (A) 81 %; Platelet Count 111 k/uL (150-450); RBC 3.47 m/uL (4.30-5.90); WBC 11.6 k/uL (3.8-10.6)
[2020-07-29 05:50] LABS: Calcium 8.1 mg/dL (8.4-10.2); Potassium 3.9 mmol/L (3.5-5.1)
[2020-07-29] MEDS: INSULIN ASPART (NovoLOG) 100 UNIT/ML VIAL SQ SCH ×3 (06:05→18:07)
--- NOTE | 2020-07-29 07:24 | XR ---
EXAMINATION TYPE: XR chest 1V portable DATE OF EXAM: 07/29/2020 COMPARISON: 07/28/2020 HISTORY: SOB, Follow Up FINDINGS: Indwelling tubes and catheters are unchanged. Table left lower lobe infiltrate. Linear atelectasis right lung base. Stable appearance of the cardio-mediastinal structures at this time. IMPRESSION: 1. Stable portable chest. Clinical correlation and follow up until resolution is recommended.
[2020-07-29] MEDS: CHLORHEXIDINE GLUCONATE 15 ML CUP MUCOUS MEM SCH ×2 (09:11→21:22)
[2020-07-29] MEDS: PIPERACILLIN-TAZOBACTAM 3.375 GM in SODIUM CHLORIDE 0.9% 100 ML IVPB SCH ×4 (09:18→17:24)
[2020-07-29] MEDS: PANTOPRAZOLE 40 MG/10 ML VIAL IVP SCH (09:19)
[2020-07-29] MEDS: HEPARIN SODIUM,PORCINE 5,000 UNIT/ML 1 ML VIAL SQ SCH ×2 (09:19→21:18)
[2020-07-29] MEDS: METOPROLOL TARTRATE 50 MG TAB PO SCH ×2 (09:21→21:22)
[2020-07-29] MEDS: ATORVASTATIN 40 MG TAB PO SCH (09:21)
[2020-07-29] MEDS: CLOPIDOGREL 75 MG TAB PO SCH (09:21)
[2020-07-29] MEDS: ASPIRIN 325 MG TAB PO SCH (09:21)
[2020-07-29] MEDS: ACETAMINOPHEN TAB 325 MG TAB PO PRN (09:24)
[2020-07-29] MEDS ORDERED: DEXMEDETOMIDINE/0.9% NACL(PMX) 400 MCG in EMPTY BAG 1 BAG IV SCH (10:00)
--- NOTE | 2020-07-29 10:28 | P.PN ---
Subjective Progress Note Date: 07/29/20 Patient is sedated and intubated. No acute events overnight reported by nursing staff. Objective - Vital Signs Vital signs: Vital Signs Temp 100.4 F H 07/29/20 08:00 Pulse 66 07/29/20 09:00 Resp 20 07/29/20 09:00 BP 104/53 07/27/20 20:00 Pulse Ox 99 07/29/20 09:00 Intake & Output 07/28/20 07/29/20 07/29/20 18:59 06:59 18:59 Intake Total 8164.334 6688.233 60 Output Total 590 1080 235 Balance 987.744 293.233 -175 Weight 85.8 kg Intake: IV 550 370 60 Sodium Chloride 0.9% 1, 550 370 60 000 ml @ 50 mls/hr IV . Q20H [facility] Rx#:[id number] Intake, IV Titration 567.744 538.233 Amount Amiodarone 360 mg In 392.22 396.663 Dextrose 5% in Water 200 ml @ 1 MG/MIN 33.333 mls/ hr IV .Q6H [facility] Rx#: [id number] propofoL 1,000 mg In 175.524 141.570 Empty Bag 1 bag @ Titrate IV .Q0M [facility] Rx#: [id number] Tube Feeding 400 375 Other 60 90 Output: Urine 590 1080 235 Other: Voiding Method Indwelling Catheter Indwelling Catheter Indwelling Catheter ABP, PAP, CO, CI - Last Documented Arterial Blood Pressure 100/39 - Exam General: The patient is sedated and intubated Eye: there is normal conjunctiva bilaterally. Neck: The neck is supple, there is no JVD. Cardiovascular: Normal S1-S2, no S3-S4, no murmurs. Respiratory: Lungs with mechanical ventilator sounds Gastrointestinal: Abdomen is soft, nontender Musculoskeletal: There is no pedal edema. Skin: Skin is warm and dry - Labs CBC & Chem 7: 07/29/20 05:22 07/29/20 05:22 Labs: Abnormal Lab Results - Last 24 Hours (Table) 07/28/20 07/28/20 07/28/20 Range/Units 11:35 16:59 23:55 WBC (3.8-10.6) k/uL RBC (4.30-5.90) m/uL Hgb (13.0-17.5) gm/dL Hct (39.0-53.0) % Plt Count (150-450) k/uL Neutrophils # (1.3-7.7) k/uL Lymphocytes # (1.0-4.8) k/uL ABG pCO2 (35-45) mmHg Chloride (98-107) mmol/L BUN (9-20) mg/dL Glucose (74-99) mg/dL POC Glucose (mg/dL) 140 H 104 H 102 H (75-99) mg/dL Calcium (8.4-10.2) mg/dL 07/29/20 07/29/20 07/29/20 Range/Units 04:39 05:22 05:22 WBC 11.6 H (3.8-10.6) k/uL RBC 3.47 L (4.30-5.90) m/uL Hgb 10.8 L (13.0-17.5) gm/dL Hct 31.8 L (39.0-53.0) % Plt Count 111 L (150-450) k/uL Neutrophils # 9.3 H (1.3-7.7) k/uL Lymphocytes # 0.8 L (1.0-4.8) k/uL ABG pCO2 34 L (35-45) mmHg Chloride 110 H (98-107) mmol/L BUN 24 H (9-20) mg/dL Glucose 133 H (74-99) mg/dL POC Glucose (mg/dL) (75-99) mg/dL Calcium 8.1 L (8.4-10.2) mg/dL 07/29/20 Range/Units 05:25 WBC (3.8-10.6) k/uL RBC (4.30-5.90) m/uL Hgb (13.0-17.5) gm/dL Hct (39.0-53.0) % Plt Count (150-450) k/uL Neutrophils # (1.3-7.7) k/uL Lymphocytes # (1.0-4.8) k/uL ABG pCO2 (35-45) mmHg Chloride (98-107) mmol/L BUN (9-20) mg/dL Glucose (74-99) mg/dL POC Glucose (mg/dL) 131 H (75-99) mg/dL Calcium (8.4-10.2) mg/dL Microbiology - Last 24 Hours (Table) 07/27/20 00:15 Blood Culture - Preliminary Blood No Growth after 48 hours Assessment and Plan Assessment: This is a 65-year-old patient of Dr. Rosalino Mcallister. Patient was here in the hospital in March of this year with a stroke and left hand weakness. CHF. Atrial fibrillation. Left ventricular thrombus. Has a history of AAA repair. Patient's heard a thud in the living room and found him on the floor. She started doing chest compressions. 911 was called. Patient did receive DC shock at least 2, IV amiodarone, fluid bolus, epinephrine at least 3 doses and patient was brought to the ER. Patient intubated here. Started on amiodarone and propofol. Both cardiology and liability claims examiner were consulted. [id number] the ventilator. Drips include IV amiodarone propofol. OG tube in place Assessment: -Cardiac arrest, witnessed, in a patient with known triple-vessel coronary artery disease. -Coronary artery [id number] as per cardiac catheterization March 2020: Managed medically. Back in March of was seen by cardiothoracic team Dr. Gleason. Given then, acute stroke, left ventricle thrombus. It was decided that patient was very high risk for cardiac bypass and he was to be managed medically. -Chronic congestive heart failure from systolic dysfunction EF 20-25%, from co ronary artery disease -Left ventricular thrombus, as per cardiac catheterization in March 2020-follow as per cardiology -Essential hypertension -Hyperlipidemia -Patient has a life vest at home-plan per cardiology to have an ICD 1 stable -Acute hypoxic respiratory failure currently patient on the ventilator support- slow to respond Plan: Plan for spontaneous breathing trial and sedation vacation this morning per ICU team Patient intubated. On the ventilator. On IV propofol IV amiodarone. Continue DuoNeb, amlodipine, aspirin, Lipitor, Plavix, Lopressor. DVT prophylaxis with subcu heparin, GI prophylaxis with IV Protonix Anticoagulation per cardiology based on the cardiac catheter results showing the left ventricular thrombus in March from this year. Repeat lab work in the morning
[2020-07-29] MEDS: lisinopriL 10 MG TAB PO SCH (11:00)
[2020-07-29] MEDS: amLODIPine 5 MG TAB PO SCH (11:00)
[2020-07-29] MEDS ORDERED: SODIUM CHLORIDE 0.9% 500 ML 500 ML IV ONE (11:05)
[2020-07-29 11:07] LABS: Glucose,Whole Blood 135 mg/dL (75-99)
--- NOTE | 2020-07-29 15:00 | P.PN ---
Subjective Progress Note Date: 07/29/20 Principal diagnosis: Cardiac arrest, acute hypoxic respiratory failure secondary to cardiac arrest This is a 65-year-old gentleman with a history of paroxysmal atrial fibrillation , hypertension, hyperlipidemia, chronic tobacco dependence, peripheral artery disease with previous aorto bifemoral bypass in 2004. He was here in May 2020 for a non-ST segment elevation myocardial infarction and found have significant multivessel coronary disease. On 05/24/2020 he had undergone an off pump coronary artery bypass graft surgery 4 with a BERNARDO to the LAD, reverse saphenous vein grafts to the RCA, radial artery to the intermediate coronary artery, reverse saphenous vein graft to the first diagonal branch. He has a history of severe ischemic cardiomyopathy with the most recent echocardiogram revealing ejection fraction 25-30%. The patient did have a LifeVest at home. Shortly after midnight his heard him making strange noises and found him unresponsive. He did not have his LifeVest on at the time. She initiated CPR EMS was called and he was brought here to the emergency room. He did develop return of spontaneous circulation. He is intubated on the mechanical ventilator. He is seen in the emergency room. Initial vent settings with assist control at a rate of 16, tidal volume 450, FiO2 100% and a PEEP of 5. Blood gases revealed a pO2 of 171, pCO2 34, pH 7.32 on 80% FiO2. Chest x-ray revealed moderate congestive heart failure with possible superimposed pneumonia especially in the right lung. Possible aspiration. Computed tomography scan of the brain revealed no acute intracranial findings. EKG reveals sinus rhythm with occasional PVCs and a right bundle branch block pattern. Repeat echocardiogram reveals severe global hypokinesis of the left ventricle with ejection fraction 20-25%. White count 15.0. Hemoglobin 14.3. Sodium 138. Potassium 4.8. Bicarb 14. Creatinine 1.26. Lactic acid 5.7. Troponin 0.068. AST 391. ALT 476. Velásquez virus by PCR not detected. 0.9 normal saline at 100 ML's per hour. On amiodarone at 1 mg per minute. Propofol at 20 mcg/kg/m. Initiated on bronchodilators. Reevaluated today on 07/26/20, remains in the ICU intubated and mechanically ventilated. His ventilator settings are assist control rate of 16 per volume is 450 FiO2 is 40% and PEEP of 5. BG showed a pO2 of 89 pCO2 of 32 pH of 7.41, he nce no changes were made in his ventilatory settings. His drips include propofol at 40 mcg/kg/m, he is on 0.9 normal saline at 50 mL per hour, and on amiodarone at 1 mg/m. Chest x-ray showed evidence of cardiomegaly, tiny left pleural effusion, patchy left basilar atelectasis, and endotracheal tube was noted to be sitting high in the trachea, this was advanced about 2.5 cm down WBC count is 18.2 hemoglobin is 13.6. Basic metabolic profile is normal, transaminases are slightly elevated including AST of 170 and ALT of 367. Reevaluated today on 07/27/20, patient remains in the ICU, intubated and mechanically ventilated. He is on assist control rate of 16 tidal volume is 450 FiO2 is 40% and PEEP of 5. ABG showed a pO2 of 88 pCO2 of 32 pH of 7.43, hence he remained on the same ventilator settings. Hemodynamically the patient is not requiring any pressors. However because of his initial presentation of ventricular fibrillation, patient remains on amiodarone at 1 mg/m, he is on propofol at 40 mcg/kg/m, and on 0.9 normal saline at 50 mL per hour. Patient is quite sedated, I recommended holding propofol, and I came back to assess his mental status, patient was not opening eyes, was not following any instructions, he was noted to be extremely agitated, obtunded, and again not able to follow any instructions he was extremely tachypneic and tachycardic has had to place him back on sedation/propofol. I recommended a neurological consultation on this patient as the patient may have developed significant anoxic brain injury. Patient apparently had a long downtime when he arrested. Patient is known to have history of severe LV dysfunction ejection fraction is 20-25%, and he was not wearing his LifeVest at the time of his cardiac arrest. Reevaluated today on 07/28/20, patient remains in the ICU, intubated and mechanically ventilated. He is on assist control rate of 16 tidal volume is 450 FiO2 is 40% PEEP of 5. Patient had an ABG showed a pO2 of 98 pCO2 of 33 pH of 7.44. Remains on propofol at 40 mcg/kg/m amiodarone at 1 mg/m patient remains on enteral feeding, vital hp bolus feedings. Patient spiked a fever earlier this morning temp is 101.2, hence I have recommended starting the patient empirically on Zosyn and starting the patient on Tylenol when necessary. His chest x-ray showed minimal bibasilar atelectasis or early infiltrates, patient was a great set up for aspiration pneumonia. Hence I will treat as such. WBC count today is 11.9 hemoglobin is 10.8. Electrolytes are normal. BUN is 23 creatinine is 1.39. EEG was suggestive of hypoxic anoxic encephalopathy however it was felt that the EEG showed preserved background pertaining to relatively g ood prognosis. Clinically the patient has been placed on sedation interruption, and he gets extremely agitated, restless, he was able to squeeze one hand only. Otherwise could not get a better assessment of mental status may eventually consider tomorrow placing the patient on Precedex instead of propofol and try to assess mental status exam on Precedex Patient was reevaluated today on 07/29/20, remains in the ICU, intubated and mechanically ventilated. Patient is on assist control rate of 16 tidal volume is 450 FiO2 is 40% PEEP of 5. Patient had low-grade temp last night, he is already on Zosyn, cultures are negative so far. ABG showed a pO2 of 88 pCO2 of 34 pH of 7.42, hence no change was made in the ventilator settings. A shunt remains on propofol at 40 mcg/kg/m, and he is on amiodarone at 1 mg/m. I will switch the patient today to Precedex, and I would assess the mental status, and if tolerated and if the mental status seems appropriate, may continue Precedex, otherwise I will switch him back to propofol. Patient was briefly off propofol, and according to the nurse he was arousable, agitated, and for the first time he was actually comprehending and following simple instructions. But because of his agitation I could not pursue this further and place the patient pressure support and CPAP, although that something to be addressed next. My biggest concern on this patient was anoxic brain injury, seems to be mild, and the patient is possibly ready to be weaned and extubated in the next 24 hours. May have to use Precedex instead of propofol in the weaning process. Chest x-ray showed minimal basilar atelectasis especially at the left base. Objective - Vital Signs Vital signs: Vital Signs Temp 99.8 F H 12/20/20 12:00 Pulse 66 07/29/20 14:00 Resp 22 07/29/20 14:00 BP 104/53 07/27/20 20:00 Pulse Ox 98 07/29/20 14:00 Intake & Output 07/28/20 07/29/20 07/29/20 18:59 06:59 18:59 Intake Total 5786.519 0533.233 1134.183 Output Total 590 1080 435 Balance 987.744 293.233 699.183 Weight 85.8 kg Intake: IV 550 370 660 Sodium Chloride 0.9% 1, 550 370 160 000 ml @ 50 mls/hr IV . Q20H [facility] Rx#:[id number] Sodium Chloride 0.9% 500 500 ml 500 ml @ 999 mls/hr IV .Q31M [facility] Rx#:[id number] Intake, IV Titration 567.744 538.233 269.183 Amount Amiodarone 360 mg In 392.22 396.663 200 Dextrose 5% in Water 200 ml @ 1 MG/MIN 33.333 mls/ hr IV .Q6H [facility] Rx#: [id number] Dexmedetomidine/0.9% NaCl 8.437 (Pmx) 400 mcg In Empty Bag 1 bag @ Titrate IV . Q0M [facility] Rx#:[id number] propofoL 1,000 mg In 175.524 141.570 60.746 Empty Bag 1 bag @ Titrate IV .Q0M [facility] Rx#: [id number] Tube Feeding 400 375 175 Other 60 90 30 Output: Urine 590 1080 435 Other: Voiding Method Indwelling Catheter Indwelling Catheter Indwelling Catheter ABP, PAP, CO, CI - Last Documented Arterial Blood Pressure 126/45 - Exam GENERAL EXAM: Revealed a 65-year-old white male sedated and mechanically ventilated, in no distress. HEAD: Normocephalic. Normocephalic. ENT: PERRLA, EOMI, no icterus, endotracheal tube and orogastric tubes are intact. CHEST: No chest wall deformity. LUNGS: Equal air entry no crackles or rhonchi or wheezes.. CVS: S1 and S2 normal with an audible murmur, regular rhythm. ABDOMEN: No hepatosplenomegaly, normal bowel sounds, no guarding or rigidity. SPINE: No scoliosis or deformity SKIN: No rashes CENTRAL NERVOUS SYSTEM: Off sedation, patient was agitated,, but followed simple instructions by the nurse.. Psychiatric: Could not assess. Except noted to be agitated earlier EXTREMITIES: There is trace peripheral edema. No clubbing, no cyanosis. Peripheral pulses are intact. - Labs CBC & Chem 7: 07/29/20 05:22 07/29/20 05:22 Labs: Abnormal Lab Results - Last 24 Hours (Table) 07/28/20 07/28/20 07/29/20 Range/Units 16:59 23:55 04:39 WBC (3.8-10.6) k/uL RBC (4.30-5.90) m/uL Hgb (13.0-17.5) gm/dL Hct (39.0-53.0) % Plt Count (150-450) k/uL Neutrophils # (1.3-7.7) k/uL Lymphocytes # (1.0-4.8) k/uL ABG pCO2 34 L (35-45) mmHg Chloride (98-107) mmol/L BUN (9-20) mg/dL Glucose (74-99) mg/dL POC Glucose (mg/dL) 104 H 102 H (75-99) mg/dL Calcium (8.4-10.2) mg/dL 07/29/20 07/29/20 07/29/20 Range/Units 05:22 05:22 05:25 WBC 11.6 H (3.8-10.6) k/uL RBC 3.47 L (4.30-5.90) m/uL Hgb 10.8 L (13.0-17.5) gm/dL Hct 31.8 L (39.0-53.0) % Plt Count 111 L (150-450) k/uL Neutrophils # 9.3 H (1.3-7.7) k/uL Lymphocytes # 0.8 L (1.0-4.8) k/uL ABG pCO2 (35-45) mmHg Chloride 110 H (98-107) mmol/L BUN 24 H (9-20) mg/dL Glucose 133 H (74-99) mg/dL POC Glucose (mg/dL) 131 H (75-99) mg/dL Calcium 8.1 L (8.4-10.2) mg/dL 07/29/20 Range/Units 11:06 WBC (3.8-10.6) k/uL RBC (4.30-5.90) m/uL Hgb (13.0-17.5) gm/dL Hct (39.0-53.0) % Plt Count (150-450) k/uL Neutrophils # (1.3-7.7) k/uL Lymphocytes # (1.0-4.8) k/uL ABG pCO2 (35-45) mmHg Chloride (98-107) mmol/L BUN (9-20) mg/dL Glucose (74-99) mg/dL POC Glucose (mg/dL) 135 H (75-99) mg/dL Calcium (8.4-10.2) mg/dL Microbiology - Last 24 Hours (Table) 07/27/20 00:15 Blood Culture - Preliminary Blood No Growth after 48 hours Assessment and Plan Assessment: Impression: Acute hypoxic respiratory failure secondary to cardiopulmonary arrest. Patient had ventricular fibrillation secondary to severe cardiomyopathy and LV dysfunction. Suspect anoxic brain injury secondary to cardiac arrest. Possibly mild c onsidering the improvement in mental status earlier today. Severe cardiomyopathy and LV dysfunction. Patient was not wearing his LifeVest at the time of his cardiac arrest. Severe ischemic cardiomyopathy. Recent history of bypass grafting 4 that was on May 24 2020. Paroxysmal atrial fibrillation. History of left ventricular thrombus. Benign essential hypertension. Peripheral vessel occlusive disease and previous aortobifemoral bypass in 2004. History of CVA and left hand weakness in March of 2020 Possible aspiration pneumonia hence Zosyn will be started empirically, chest x- ray is relatively reassured. Recommendation: Continue ventilatory support. Continue nutritional support/enteral feeding. Continue Daily interruption of sedation and assessment of mental status , patient may have to be placed on Precedex and set of propofol during the weaning process. Continue Zosyn for presumptive aspiration pneumonia Daily monitoring of chest x-ray and ABG. GI and DVT prophylaxis. Continue cardiac meds Overall prognosis remains guarded. Will instruct nurses to hold sedation early in the morning, and patient will reassess for possible weaning and extubation in the next 24 hours. Critical care time is greater than 30 minutes. Time with Patient: Greater than 30
--- NOTE | 2020-07-29 15:47 | P.PN ---
Subjective Mr. Barnard is now on Precedex. He is opening his eyes but he is still somewhat sedated He is off propofol No new arrhythmias On examination 99.8F, pulse rate in the 50s and 60s, respirations 22 and blood pressure 126/45 mmHg Breath sounds are reduced bilaterally no rhonchi no crackles Heart sounds S1 and S2 are normal Abdomen is soft He remains intubated Medication list was reviewed he remains on IV amiodarone and today I will switch to oral amiodarone via NG tube He is on aspirin. I will reduce the dose of aspirin to 81 mg by mouth daily Plavix 75 mg by mouth daily Lisinopril and metoprolol to continue Await follow-up EEG on Precedex Final diagnosis Ischemic cardio myopathy VF arrest Status post coronary artery bypass grafting Awaiting full neurologic recovery for further management Continue that and recommended medical treatment and amiodarone Objective - Vital Signs Vital signs: Vital Signs Temp 99.8 F H 07/29/20 12:00 Pulse 58 L 07/29/20 15:43 Resp 22 07/29/20 14:00 BP 104/53 07/27/20 20:00 Pulse Ox 98 07/29/20 14:00 Intake & Output 07/28/20 07/29/20 07/29/20 18:59 06:59 18:59 Intake Total 2663.851 3740.233 1134.183 Output Total 590 1080 435 Balance 987.744 293.233 699.183 Weight 85.8 kg Intake: IV 550 370 660 Sodium Chloride 0.9% 1, 550 370 160 000 ml @ 50 mls/hr IV . Q20H [facility] Rx#:[id number] Sodium Chloride 0.9% 500 500 ml 500 ml @ 999 mls/hr IV .Q31M [facility] Rx#:[id number] Intake, IV Titration 567.744 538.233 269.183 Amount Amiodarone 360 mg In 392.22 396.663 200 Dextrose 5% in Water 200 ml @ 1 MG/MIN 33.333 mls/ hr IV .Q6H [facility] Rx#: [id number] Dexmedetomidine/0.9% NaCl 8.437 (Pmx) 400 mcg In Empty Bag 1 bag @ Titrate IV . Q0M [facility] Rx#:[id number] propofoL 1,000 mg In 175.524 141.570 60.746 Empty Bag 1 bag @ Titrate IV .Q0M [facility] Rx#: [id number] Tube Feeding 400 375 175 Other 60 90 30 Output: Urine 590 1080 435 Other: Voiding Method Indwelling Catheter Indwelling Catheter Indwelling Catheter ABP, PAP, CO, CI - Last Documented Arterial Blood Pressure 126/45 - Labs CBC & Chem 7: 07/29/20 05:22 07/29/20 05:22 Labs: Abnormal Lab Results - Last 24 Hours (Table) 07/28/20 07/28/20 07/29/20 Range/Units 16:59 23:55 04:39 WBC (3.8-10.6) k/uL RBC (4.30-5.90) m/uL Hgb (13.0-17.5) gm/dL Hct (39.0-53.0) % Plt Count (150-450) k/uL Neutrophils # (1.3-7.7) k/uL Lymphocytes # (1.0-4.8) k/uL ABG pCO2 34 L (35-45) mmHg Chloride (98-107) mmol/L BUN (9-20) mg/dL Glucose (74-99) mg/dL POC Glucose (mg/dL) 104 H 102 H (75-99) mg/dL Calcium (8.4-10.2) mg/dL 07/29/20 07/29/20 07/29/20 Range/Units 05:22 05:22 05:25 WBC 11.6 H (3.8-10.6) k/uL RBC 3.47 L (4.30-5.90) m/uL Hgb 10.8 L (13.0-17.5) gm/dL Hct 31.8 L (39.0-53.0) % Plt Count 111 L (150-450) k/uL Neutrophils # 9.3 H (1.3-7.7) k/uL Lymphocytes # 0.8 L (1.0-4.8) k/uL ABG pCO2 (35-45) mmHg Chloride 110 H (98-107) mmol/L BUN 24 H (9-20) mg/dL Glucose 133 H (74-99) mg/dL POC Glucose (mg/dL) 131 H (75-99) mg/dL Calcium 8.1 L (8.4-10.2) mg/dL 12/20/20 Range/Units 11:06 WBC (3.8-10.6) k/uL RBC (4.30-5.90) m/uL Hgb (13.0-17.5) gm/dL Hct (39.0-53.0) % Plt Count (150-450) k/uL Neutrophils # (1.3-7.7) k/uL Lymphocytes # (1.0-4.8) k/uL ABG pCO2 (35-45) mmHg Chloride (98-107) mmol/L BUN (9-20) mg/dL Glucose (74-99) mg/dL POC Glucose (mg/dL) 135 H (75-99) mg/dL Calcium (8.4-10.2) mg/dL Microbiology - Last 24 Hours (Table) 07/27/20 00:15 Blood Culture - Preliminary Blood No Growth after 48 hours
[2020-07-29 18:02] LABS: Glucose,Whole Blood 93 mg/dL (75-99)
[2020-07-29] MEDS: AMIODARONE 200 MG TAB PO SCH (21:22)
[2020-07-29] MEDS: MORPHINE SULFATE 4 MG/ML SYRINGE IV PRN (21:26)
[2020-07-30] MEDS: PIPERACILLIN-TAZOBACTAM 3.375 GM in SODIUM CHLORIDE 0.9% 100 ML IVPB SCH ×3 (00:13→16:59)
[2020-07-30] MEDS: INSULIN ASPART (NovoLOG) 100 UNIT/ML VIAL SQ SCH ×4 (00:16→18:30)
[2020-07-30 00:17] LABS: Glucose,Whole Blood 91 mg/dL (75-99)
[2020-07-30] MEDS: IPRATROPIUM-ALBUTEROL 3 ML NEB INHALATION SCH ×5 (03:40→20:25)
[2020-07-30] MEDS: MORPHINE SULFATE 4 MG/ML SYRINGE IV PRN ×2 (03:40→06:51)
[2020-07-30 04:24] LABS: Basophils # (A) 0.1 k/uL (0-0.2); Basophils % (A) 1 %; Eosinophils # (A) 0.4 k/uL (0-0.7); Eosinophils % (A) 4 %; HCT 31.5 % (39.0-53.0); HGB 10.4 gm/dL (13.0-17.5); Lymphocytes % (A) 9 %; MCH 30.8 pg (25.0-35.0); MCV 93.2 fL (80.0-100.0); Mean Platelet Volume 9.2; Monocytes # (A) 1.2 k/uL (0-1.0); Monocytes % (A) 11 %; Neutrophils % (A) 73 %; Platelet Count 113 k/uL (150-450); RBC 3.38 m/uL (4.30-5.90); RDW 14.1 % (11.5-15.5)
[2020-07-30 04:35] LABS: Calcium 7.7 mg/dL (8.4-10.2); Potassium 3.7 mmol/L (3.5-5.1)
[2020-07-30] MEDS ORDERED: Potassium Replacement Protocol 1 EACH MISC MISCELLANE PRN (04:39)
[2020-07-30] MEDS ORDERED: POTASSIUM BICARBONATE/CIT AC 20 MEQ TABLET.EFF NG-TUBE SCH (05:00)
[2020-07-30 05:33] LABS: ABG Base Excess -1.8 mmol/L; ABG HCO3 23 mmol/L (21-25); ABG Oxygen Saturation 95.8 % (94-97); ABG PCO2 36 mmHg (35-45); ABG PH 7.41 (7.35-7.45); ABG PO2 83 mmHg (83-108); ABG TCO2 24 mmol/L (19-24)
[2020-07-30 05:38] LABS: Glucose,Whole Blood 118 mg/dL (75-99)
[2020-07-30 05:47] LABS: Allen Test Performed? no
--- NOTE | 2020-07-30 07:21 | XR ---
EXAMINATION TYPE: XR chest 1V portable DATE OF EXAM: 07/30/2020 COMPARISON: 07/29/2020 HISTORY: SOB, Follow Up FINDINGS: Indwelling tubes and catheters are unchanged. No change in bibasilar opacities. Stable appearance of the cardio-mediastinal structures at this time. IMPRESSION: 1. Stable portable chest. Clinical correlation and follow up until resolution is recommended.
[2020-07-30] MEDS: PANTOPRAZOLE 40 MG/10 ML VIAL IVP SCH (08:49)
[2020-07-30] MEDS: ASPIRIN 81 MG PO SCH (08:49)
[2020-07-30] MEDS: HEPARIN SODIUM,PORCINE 5,000 UNIT/ML 1 ML VIAL SQ SCH ×2 (08:52→20:02)
[2020-07-30] MEDS: CLOPIDOGREL 75 MG TAB PO SCH (08:52)
[2020-07-30] MEDS: AMIODARONE 200 MG TAB PO SCH ×3 (08:52→20:02)
[2020-07-30] MEDS: ATORVASTATIN 40 MG TAB PO SCH (08:52)
[2020-07-30] MEDS: CHLORHEXIDINE GLUCONATE 15 ML CUP MUCOUS MEM SCH (08:56)
--- NOTE | 2020-07-30 09:58 | PN ---
PROGRESS NOTE Narayan is a 65-year-old gentleman that is admitted to hospital with a cardiac respiratory arrest following ventricular fibrillation. The patient has known ischemic cardiomyopathy with severe LV dysfunction, had a life vest which he was apparently not using property. This morning he remains in sinus rhythm. Currently on amiodarone 200 t.i.d., Norvasc 5 daily, Lipitor 40 daily, Plavix 75 daily, Zestril, Lopressor 50 b.i.d. On exam heart rate is 60 beats per minute. Blood pressure is 104/50, respiratory rate is 16. He is intubated on vent. Chest exam reveals diminished air entry at the bases. Heart exam reveals first and second heart sounds. No gallop. No murmur. Abdomen is soft. Exam of extremities reveals trace edema. LABS: Show a hemoglobin of 10.4, platelet count of 113, potassium is 3.7, creatinine is 1. ASSESSMENT: Ischemic cardiomyopathy status post VFib arrest, CAD status post CABG. PLAN: Patient will continue current medications and if he makes a neurological recovery, he would benefit from an AICD. CHRISTIANNE / ZORANN: [id number] /
--- NOTE | 2020-07-30 11:06 | P.PN ---
Subjective Progress Note Date: 07/30/20 Principal diagnosis: Cardiopulmonary arrest This is a 65-year-old gentleman with a history of paroxysmal atrial fibrillation, hypertension, hyperlipidemia, chronic tobacco dependence, peripheral artery disease with previous aorto bifemoral bypass in 2004. He was here in May 2020 for a non-ST segment elevation myocardial infarction and found have significant multivessel coronary disease. On 05/24/2020 he had undergone an off pump coronary artery bypass graft surgery 4 with a BERNARDO to the LAD, reverse saphenous vein grafts to the RCA, radial artery to the intermediate coronary artery, reverse saphenous vein graft to the first diagonal branch. He has a history of severe ischemic cardiomyopathy with the most recent echocardiogram revealing ejection fraction 25-30%. The patient did have a LifeVest at home. Shortly after midnight his heard him making strange noises and found him unresponsive. He did not have his LifeVest on at the time. She initiated CPR EMS was called and he was brought here to the emergency room. He did develop return of spontaneous circulation. He is intubated on the mechanical ventilator. He is seen in the emergency room. Initial vent settings with assist control at a rate of 16, tidal volume 450, FiO2 100% and a PEEP of 5. Blood gases revealed a pO2 of 171, pCO2 34, pH 7.32 on 80% FiO2. Chest x- ray revealed moderate congestive heart failure with possible superimposed pneumonia especially in the right lung. Possible aspiration. Computed tomography scan of the brain revealed no acute intracranial findings. EKG reve als sinus rhythm with occasional PVCs and a right bundle branch block pattern. Repeat echocardiogram reveals severe global hypokinesis of the left ventricle with ejection fraction 20-25%. White count 15.0. Hemoglobin 14.3. Sodium 138. Potassium 4.8. Bicarb 14. Creatinine 1.26. Lactic acid 5.7. Troponin 0.068. AST 391. ALT 476. Velásquez virus by PCR not detected. 0.9 normal saline at 100 ML's per hour. On amiodarone at 1 mg per minute. Propofol at 20 mcg/kg/m. Initiated on bronchodilators. Reevaluated today on 07/26/20, remains in the ICU intubated and mechanically ventilated. His ventilator settings are assist control rate of 16 per volume is 450 FiO2 is 40% and PEEP of 5. BG showed a pO2 of 89 pCO2 of 32 pH of 7.41, hence no changes were made in his ventilatory settings. His drips include propofol at 40 mcg/kg/m, he is on 0.9 normal saline at 50 mL per hour, and on amiodarone at 1 mg/m. Chest x-ray showed evidence of cardiomegaly, tiny left pleural effusion, patchy left basilar atelectasis, and endotracheal tube was noted to be sitting high in the trachea, this was advanced about 2.5 cm down WBC count is 18.2 hemoglobin is 13.6. Basic metabolic profile is normal, transaminases are slightly elevated including AST of 170 and ALT of 367. Reevaluated today on 07/27/20, patient remains in the ICU, intubated and mechanically ventilated. He is on assist control rate of 16 tidal volume is 450 FiO2 is 40% and PEEP of 5. ABG showed a pO2 of 88 pCO2 of 32 pH of 7.43, hence he remained on the same ventilator settings. Hemodynamically the patient is not requiring any pressors. However because of his initial presentation of ventricular fibrillation, patient remains on amiodarone at 1 mg/m, he is on propofol at 40 mcg/kg/m, and on 0.9 normal saline at 50 mL per hour. Patient is quite sedated, I recommended holding propofol, and I came back to assess his men jeanine status, patient was not opening eyes, was not following any instructions, he was noted to be extremely agitated, obtunded, and again not able to follow any instructions he was extremely tachypneic and tachycardic has had to place him back on sedation/propofol. I recommended a neurological consultation on this patient as the patient may have developed significant anoxic brain injury. Patient apparently had a long downtime when he arrested. Patient is known to have history of severe LV dysfunction ejection fraction is 20-25%, and he was not wearing his LifeVest at the time of his cardiac arrest. Reevaluated today on 07/28/20, patient remains in the ICU, intubated and mechanically ventilated. He is on assist control rate of 16 tidal volume is 450 FiO2 is 40% PEEP of 5. Patient had an ABG showed a pO2 of 98 pCO2 of 33 pH of 7.44. Remains on propofol at 40 mcg/kg/m amiodarone at 1 mg/m patient remains on enteral feeding, vital hp bolus feedings. Patient spiked a fever earlier th is morning temp is 101.2, hence I have recommended starting the patient empirically on Zosyn and starting the patient on Tylenol when necessary. His chest x-ray showed minimal bibasilar atelectasis or early infiltrates, patient was a great set up for aspiration pneumonia. Hence I will treat as such. WBC count today is 11.9 hemoglobin is 10.8. Electrolytes are normal. BUN is 23 creatinine is 1.39. EEG was suggestive of hypoxic anoxic encephalopathy however it was felt that the EEG showed preserved background pertaining to relatively good prognosis. Clinically the patient has been placed on sedation interruption, and he gets extremely agitated, restless, he was able to squeeze one hand only. Otherwise could not get a better assessment of mental status may eventually consider tomorrow placing the patient on Precedex instead of propofol and try to assess mental status exam on Precedex Patient was reevaluated today on 07/29/20, remains in the ICU, intubated and mechanically ventilated. Patient is on assist control rate of 16 tidal volume is 450 FiO2 is 40% PEEP of 5. Patient had low-grade temp last night, he is already on Zosyn, cultures are negative so far. ABG showed a pO2 of 88 pCO2 of 34 pH of 7.42, hence no change was made in the ventilator settings. A shunt remains on propofol at 40 mcg/kg/m, and he is on amiodarone at 1 mg/m. I will switch the patient today to Precedex, and I would assess the mental status, and if tolerated and if the mental status seems appropriate, may continue Precedex, otherwise I will switch him back to propofol. Patient was briefly off propofol, and according to the nurse he was arousable, agitated, and for the first time he was actually comprehending and following simple instructions. But because of his agitation I could not pursue this further and place the patient pressure support and CPAP, although that something to be addressed next. My biggest concern on this patient was anoxic brain injury, seems to be mild, and the p atient is possibly ready to be weaned and extubated in the next 24 hours. May have to use Precedex instead of propofol in the weaning process. Chest x-ray showed minimal basilar atelectasis especially at the left base. On 07/30/2020 patient seen in follow-up in the intensive care unit. He is cur rently awake and alert, he remains on small dose of Precedex is 0.3 mics per kilo per minute, and 0.9 normal saline at a rate of 20 ML per hour, he is much more ill, non-agitated, he is following commands, he is showing me thumbs up with both hands, he is wiggling toes on command, very cooperative. He remains on assist control mode of ventilation with a rate of 16, tidal lungs were 50, FiO2 40% and PEEP of 5, this morning's blood gases show pO2 of 83, pCO2 36, and pH of 7.41. Chest x-ray has been reviewed showing no change in bibasilar opacities. Hemodynamically patient has remained stable. Remains on Zosyn for empiric antibiotic coverage. Did have a low-grade fever last night at midnight with a temp of 100.1F. Blood and sputum cultures show no growth. These labs have been reviewed, showing white blood cell count of 11, hemoglobin of 10.4, sodium of 139, potassium 3.7, chloride is 110, CO2 is 24, B1 is 26 and creatinine 1.03. Patient was given per support trial with the pressure support of 5, and CPAP of 5, and his weaning parameters showed tidal volume of 525, vital capacity of 1.4 L, RSBI of 28, NIF negative is -25, and minute ventilation of 12.14 L/m. Objective - Vital Signs Vital signs: Vital Signs Temp 99.0 F 07/30/20 08:00 Pulse 61 07/30/20 10:00 Resp 27 H 07/30/20 10:00 BP 104/53 07/30/20 10:00 Pulse Ox 99 07/30/20 10:00 Intake & Output 07/29/20 07/30/20 07/30/20 18:59 06:59 18:59 Intake Total 8154.654 9350.535 345.132 Output Total 610 735 180 Balance 852.053 542.535 165.132 Weight 79.3 kg 82.4 kg Intake: IV 800 340 90 Piperacillin-Tazobactam 3 100 100 .375 gm In Sodium Chloride 0.9% 100 ml @ 25 mls/hr IVPB Q8HR [facility] Rx# :[id number] Sodium Chloride 0.9% 1, 200 240 90 000 ml @ 50 mls/hr IV . Q20H [facility] Rx#:[id number] Sodium Chloride 0.9% 500 500 ml 500 ml @ 999 mls/hr IV .Q31M [facility] Rx#:[id number] Intake, IV Titration 282.053 147.535 25.132 Amount Amiodarone 360 mg In 200 Dextrose 5% in Water 200 ml @ 1 MG/MIN 33.333 mls/ hr IV .Q6H [facility] Rx#: [id number] Dexmedetomidine/0.9% NaCl 8.437 0.378 18.746 (Pmx) 400 mcg In Empty Bag 1 bag @ Titrate IV . Q0M [facility] Rx#:[id number] propofoL 1,000 mg In 73.616 147.157 6.386 Empty Bag 1 bag @ Titrate IV .Q0M [facility] Rx#: [id number] Tube Feeding 350 580 230 Other 30 210 Output: Urine 610 735 180 Other: Voiding Method Indwelling Catheter Indwelling Catheter Indwelling Catheter ABP, PAP, CO, CI - Last Documented Arterial Blood Pressure 117/42 - Exam GENERAL EXAM: Alert, pleasant, 65-year-old white male, on assist control mode of ventilation with FiO2 40% and PEEP of 5 comfortable in no apparent distress. HEAD: Normocephalic/atraumatic. EYES: Normal reaction of pupils, equal size. Conjunctiva pink, sclera white. NOSE: Clear with pink turbinates. THROAT: No erythema or exudates. NECK: No masses, no JVD, no thyroid enlargement, no adenopathy. CHEST: No chest wall deformity. Symmetrical expansion. LUNGS: Equal air entry with no crackles, wheeze, rhonchi or dullness. CVS: Regular rate and rhythm, normal S1 and S2, no gallops, no murmurs, no rubs ABDOMEN: Soft, nontender. No hepatosplenomegaly, normal bowel sounds, no guarding or rigidity. EXTREMITIES: No clubbing, mild nonpitting edema in bilateral hands, no cyanosis, 2+ pulses and upper and lower extremities. MUSCULOSKELETAL: Muscle strength and tone normal. SPINE: No scoliosis or deformity SKIN: No rashes CENTRAL NERVOUS SYSTEM: Alert and oriented -3. No focal deficits, tone is normal in all 4 extremities. PSYCHIATRIC: Alert and oriented -3. Appropriate affect. Intact judgment and insight. - Labs CBC & Chem 7: 07/30/20 04:11 07/30/20 07:13 Labs: Abnormal Lab Results - Last 24 Hours (Table) 07/29/20 07/30/20 07/30/20 Range/Units 11:06 04:11 04:11 WBC 11.0 H (3.8-10.6) k/uL RBC 3.38 L (4.30-5.90) m/uL Hgb 10.4 L (13.0-17.5) gm/dL Hct 31.5 L (39.0-53.0) % Plt Count 113 L (150-450) k/uL Neutrophils # 8.0 H (1.3-7.7) k/uL Monocytes # 1.2 H (0-1.0) k/uL Chloride 110 H (98-107) mmol/L BUN 26 H (9-20) mg/dL Glucose 111 H (74-99) mg/dL POC Glucose (mg/dL) 135 H (75-99) mg/dL Calcium 7.7 L (8.4-10.2) mg/dL 07/30/20 Range/Units 05:37 WBC (3.8-10.6) k/uL RBC (4.30-5.90) m/uL Hgb (13.0-17.5) gm/dL Hct (39.0-53.0) % Plt Count (150-450) k/uL Neutrophils # (1.3-7.7) k/uL Monocytes # (0-1.0) k/uL Chloride (98-107) mmol/L BUN (9-20) mg/dL Glucose (74-99) mg/dL POC Glucose (mg/dL) 118 H (75-99) mg/dL Calcium (8.4-10.2) mg/dL Microbiology - Last 24 Hours (Table) 07/27/20 00:15 Blood Culture - Preliminary Blood No Growth after 72 hours Assessment and Plan Plan: Assessment: #1. Acute hypoxic respiratory failure secondary to cardiopulmonary arrest. Patient had ventricular fibrillation secondary to severe cardiomyopathy and LV dysfunction, was resuscitated, required defibrillation 4, CPR, with return of spontaneous circulation #2. Rule out mild anoxic brain injury secondary to cardiac arrest, however his mental status has improved, patient is awake and alert, following commands on today's exam on 07/30/2020, and was successfully weaned and extubated #3. Severe cardiomyopathy and LV dysfunction, patient was supposed to be wearing his LifeVest at the time of cardiac arrest which he was not wearing at the time #4. Severe ischemic cardiomyopathy #5. Recent history of bypass grafting 4 on 05/24/2020 #6. Paroxysmal atrial fibrillation, currently in sinus mechanism #7. History of left ventricular thrombus #8. Benign essential hypertension #9. Peripheral vessel occlusive disease and previous aortobifemoral bypass in 2004 #10. History of CVA and left hand weakness in March 2020 #11. Possible aspiration pneumonia on Zosyn Plan: Patient was successfully weaned and extubated, tolerated pressure support trial with pressure support of 5, and CPAP of 5, discontinue Precedex, continue Zosyn, continue breathing treatments. Provide incentive spirometer, maintain aspiration precautions, and DVT prophylaxis. We'll continue to follow, monitor in the ICU I performed a history & physical examination of the patient and discussed their management with my nurse practitioner, Deedee Turcios. I reviewed the nurse practitioner's note and agree with the documented findings and plan of care. Lung sounds are positive for diminished breath sounds. The findings and the impression was discussed with the patient. I attest to the documentation by the nurse practitioner. Time with Patient: Greater than 30
--- NOTE | 2020-07-30 12:02 | P.PN ---
Subjective Progress Note Date: 07/30/20 Patient was seen at bedside, and per the patientis nurse doing better. The patient was extubated today in the morning around that 10ish. Overnight the patient was on propofol until probably 5:00 in the morning then he was a switch over to Precedex. Per the patient's nurse and his mentation slowly improving. Upon seeing the patient he was getting the respiratory treatment. Patient had low grade fever of 100.1 on 07/30/20 (at midnight). Patient is on Zosyn. Objective - Vital Signs Vital signs: Vital Signs Temp 99.0 F 07/30/20 08:00 Pulse 61 07/30/20 10:00 Resp 27 H 07/30/20 10:00 BP 104/53 07/30/20 10:00 Pulse Ox 99 07/30/20 10:00 Intake & Output 07/29/20 07/30/20 07/30/20 18:59 06:59 18:59 Intake Total 6076.284 7444.535 345.132 Output Total 610 735 180 Balance 852.053 542.535 165.132 Weight 79.3 kg 82.4 kg 82.4 kg Intake: IV 800 340 90 Piperacillin-Tazobactam 3 100 100 .375 gm In Sodium Chloride 0.9% 100 ml @ 25 mls/hr IVPB Q8HR [facility] Rx# :[id number] Sodium Chloride 0.9% 1, 200 240 90 000 ml @ 50 mls/hr IV . Q20H [facility] Rx#:[id number] Sodium Chloride 0.9% 500 500 ml 500 ml @ 999 mls/hr IV .Q31M [facility] Rx#:[id number] Intake, IV Titration 282.053 147.535 25.132 Amount Amiodarone 360 mg In 200 Dextrose 5% in Water 200 ml @ 1 MG/MIN 33.333 mls/ hr IV .Q6H [facility] Rx#: [id number] Dexmedetomidine/0.9% NaCl 8.437 0.378 18.746 (Pmx) 400 mcg In Empty Bag 1 bag @ Titrate IV . Q0M [facility] Rx#:[id number] propofoL 1,000 mg In 73.616 147.157 6.386 Empty Bag 1 bag @ Titrate IV .Q0M [facility] Rx#: [id number] Tube Feeding 350 580 230 Other 30 210 Output: Urine 610 735 180 Other: Voiding Method Indwelling Catheter Indwelling Catheter Indwelling Catheter ABP, PAP, CO, CI - Last Documented Arterial Blood Pressure 117/42 - Exam GENERAL: The patient is lying in bed and is not in acute distress. NEUROLOGICAL: Limited since was on sedation earlier today. Higher mental function: The patient is awake, alert, oriented to self. Stated it was [facility] and the year was 2019. But did not respond to month. Patient is following simple commands. No aphasia and no neglect. Cranial nerves: The pupils are round, equal and reactive to light . Visual fie lds are full to confrontation throughout. Extraocular movement is intact no nystagmus is noted. The facial strength is normal throughout. Has mild to moderate dysarthria (extuabed within last 2 hours). Motor: Gait is deferred. The strength is 4+ to 5-/5 throughout. Normal tone and bulk. Sensation: Unable to assess because of his cooperation. Reflexes (right/left): 2+ throughout. Plantars are downgoing bilaterally. - Labs CBC & Chem 7: 07/30/20 04:11 07/30/20 07:13 Labs: Abnormal Lab Results - Last 24 Hours (Table) 07/30/20 07/30/20 07/30/20 Range/Units 04:11 04:11 05:37 WBC 11.0 H (3.8-10.6) k/uL RBC 3.38 L (4.30-5.90) m/uL Hgb 10.4 L (13.0-17.5) gm/dL Hct 31.5 L (39.0-53.0) % Plt Count 113 L (150-450) k/uL Neutrophils # 8.0 H (1.3-7.7) k/uL Monocytes # 1.2 H (0-1.0) k/uL Chloride 110 H (98-107) mmol/L BUN 26 H (9-20) mg/dL Glucose 111 H (74-99) mg/dL POC Glucose (mg/dL) 118 H (75-99) mg/dL Calcium 7.7 L (8.4-10.2) mg/dL Microbiology - Last 24 Hours (Table) 07/27/20 00:15 Blood Culture - Preliminary Blood No Growth after 72 hours Assessment and Plan Assessment: * Altered mental status due to cardiac arrest and sedation---mentation improving. * Status post witnessed Cardiac arrest at home. Although reported fairly long down time, but patient is showing significant meaningful response. * Acute hypoxic respiratory failure secondary to cardiopulmonary arrest. * Dysphagia likely due to him being intubated * Possible aspiration pneumonia on Zosyn * Severe cardiomyopathy and left ventricular dysfunction. * History of ischemic CVA with left hand weakness 03/29/2020. * Paroxysmal atrial fibrillation. * History of left-ventricular thrombus. * Hypertension * History of tobacco use * Hyperlipidemia Plan: * Mentation is improving that today. We'll reevaluate him tomorrow to see if the mentation is back to baseline. * EEG was performed (07/27/2020), which wis reported as revealed abnormal sleep EEG because of intermittent generalized suppressed activity for 1-2 seconds. This can be seen with hypoxic anoxic encephalopathies. However fairly well preserved background was also seen during most of the study pertaining to relatively good prognosis. Clinical correlation recommended. No epileptiform activity was seen. * Medical management as per cardiology/IM/critical care. We'll continue to follow. Time with Patient: Less than 30
[2020-07-30 13:06] LABS: Glucose,Whole Blood 132 mg/dL (75-99)
--- NOTE | 2020-07-30 14:21 | P.PN ---
Subjective Progress Note Date: 07/30/20 Patient is intubated but off sedation and is alert and able to follow simple commands No acute events overnight reported by nursing staff. Objective - Vital Signs Vital signs: Vital Signs Temp 99.0 F 07/30/20 08:00 Pulse 87 07/30/20 13:00 Resp 11 L 07/30/20 13:00 BP 104/53 07/30/20 13:00 Pulse Ox 96 07/30/20 13:00 Intake & Output 07/29/20 07/30/20 07/30/20 18:59 06:59 18:59 Intake Total 0445.301 1360.535 405.132 Output Total 610 735 390 Balance 852.053 542.535 15.132 Weight 79.3 kg 82.4 kg 82.4 kg Intake: IV 800 340 150 Piperacillin-Tazobactam 3 100 100 .375 gm In Sodium Chloride 0.9% 100 ml @ 25 mls/hr IVPB Q8HR [facility] Rx# :[id number] Sodium Chloride 0.9% 1, 200 240 150 000 ml @ 50 mls/hr IV . Q20H [facility] Rx#:[id number] Sodium Chloride 0.9% 500 500 ml 500 ml @ 999 mls/hr IV .Q31M [facility] Rx#:[id number] Intake, IV Titration 282.053 147.535 25.132 Amount Amiodarone 360 mg In 200 Dextrose 5% in Water 200 ml @ 1 MG/MIN 33.333 mls/ hr IV .Q6H [facility] Rx#: [id number] Dexmedetomidine/0.9% NaCl 8.437 0.378 18.746 (Pmx) 400 mcg In Empty Bag 1 bag @ Titrate IV . Q0M [facility] Rx#:[id number] propofoL 1,000 mg In 73.616 147.157 6.386 Empty Bag 1 bag @ Titrate IV .Q0M [facility] Rx#: [id number] Tube Feeding 350 580 230 Other 30 210 Output: Urine 610 735 390 Other: Voiding Method Indwelling Catheter Indwelling Catheter Indwelling Catheter ABP, PAP, CO, CI - Last Documented Arterial Blood Pressure 191/68 - Exam General: The patient is intubated Eye: there is normal conjunctiva bilaterally. Neck: The neck is supple, there is no JVD. Cardiovascular: Normal S1-S2, no S3-S4, no murmurs. Respiratory: Lungs with mechanical ventilator sounds Gastrointestinal: Abdomen is soft, nontender Musculoskeletal: There is no pedal edema. Skin: Skin is warm and dry - Labs CBC & Chem 7: 07/30/20 04:11 07/30/20 07:13 Labs: Abnormal Lab Results - Last 24 Hours (Table) 07/30/20 07/30/20 07/30/20 Range/Units 04:11 04:11 05:37 WBC 11.0 H (3.8-10.6) k/uL RBC 3.38 L (4.30-5.90) m/uL Hgb 10.4 L (13.0-17.5) gm/dL Hct 31.5 L (39.0-53.0) % Plt Count 113 L (150-450) k/uL Neutrophils # 8.0 H (1.3-7.7) k/uL Monocytes # 1.2 H (0-1.0) k/uL Chloride 110 H (98-107) mmol/L BUN 26 H (9-20) mg/dL Glucose 111 H (74-99) mg/dL POC Glucose (mg/dL) 118 H (75-99) mg/dL Calcium 7.7 L (8.4-10.2) mg/dL 07/30/20 Range/Units 13:05 WBC (3.8-10.6) k/uL RBC (4.30-5.90) m/uL Hgb (13.0-17.5) gm/dL Hct (39.0-53.0) % Plt Count (150-450) k/uL Neutrophils # (1.3-7.7) k/uL Monocytes # (0-1.0) k/uL Chloride (98-107) mmol/L BUN (9-20) mg/dL Glucose (74-99) mg/dL POC Glucose (mg/dL) 132 H (75-99) mg/dL Calcium (8.4-10.2) mg/dL Microbiology - Last 24 Hours (Table) 07/27/20 00:15 Blood Culture - Preliminary Blood No Growth after 72 hours Assessment and Plan Assessment: This is a 65-year-old patient of Dr. Rosalino Mcallister. Patient was here in the hospital in March of this year with a stroke and left hand weakness. CHF. Atrial fibrillation. Left ventricular thrombus. Has a history of AAA repair. Patient's heard a thud in the living room and found him on the floor. She started doing chest compressions. 911 was called. Patient did receive DC shock at least 2, IV amiodarone, fluid bolus, epinephrine at least 3 doses and patient was brought to the ER. Patient intubated here. Started on amiodarone and propofol. Both cardiology and addictions counselor assistant were consulted. [id number] the ventilator. Drips include IV amiodarone propofol. OG tube in place Assessment: -Cardiac arrest, witnessed, in a patient with known triple-vessel coronary artery disease. -Coronary artery [id number] as per cardiac catheterization March 2020: Managed medically. Back in March of was seen by cardiothoracic team Dr. Gleason. Given then, acute stroke, left ventricle thrombus. It was decided that patient was very high risk for cardiac bypass and he was to be managed medically. -Chronic congestive heart failure from systolic dysfunction EF 20-25%, from coronary artery disease -Left ventricular thrombus, as per cardiac catheterization in March 2020-follow as per cardiology -Essential hypertension -Hyperlipidemia -Patient has a life vest at home-plan per cardiology to have an ICD 1 stable -Acute hypoxic respiratory failure currently patient on the ventilator support Plan: spontaneous breathing trial per ICU team Continue DuoNeb, amlodipine, aspirin, Lipitor, Plavix, Lopressor. DVT prophylaxis with subcu heparin, GI prophylaxis with IV Protonix Anticoagulation per cardiology based on the cardiac catheter results showing the left ventricular thrombus in March from this year. Repeat lab work in the morning
[2020-07-30] MEDS: amLODIPine 5 MG TAB PO SCH (15:09)
[2020-07-30] MEDS: lisinopriL 10 MG TAB PO SCH (15:09)
[2020-07-30] MEDS: METOPROLOL TARTRATE 50 MG TAB PO SCH ×2 (15:09→20:02)
[2020-07-30] MEDS ORDERED: lisinopriL 5 MG TAB PO STA (16:23)
[2020-07-30] MEDS ORDERED: amLODIPine 5 MG TAB PO STA (16:23)
[2020-07-30 18:30] LABS: Glucose,Whole Blood 97 mg/dL (75-99)
[2020-07-31 00:31] LABS: Glucose,Whole Blood 86 mg/dL (75-99)
[2020-07-31] MEDS: INSULIN ASPART (NovoLOG) 100 UNIT/ML VIAL SQ SCH ×5 (00:36→23:46)
[2020-07-31] MEDS: PIPERACILLIN-TAZOBACTAM 3.375 GM in SODIUM CHLORIDE 0.9% 100 ML IVPB SCH ×4 (00:38→23:46)
[2020-07-31 04:37] LABS: Basophils # (A) 0.1 k/uL (0-0.2); Basophils % (A) 1 %; Eosinophils # (A) 0.3 k/uL (0-0.7); Eosinophils % (A) 2 %; HCT 32.7 % (39.0-53.0); HGB 10.9 gm/dL (13.0-17.5); Lymphocytes # (A) 1.2 k/uL (1.0-4.8); Lymphocytes % (A) 11 %; MCH 30.7 pg (25.0-35.0); MCHC 33.5 g/dL (31.0-37.0); MCV 91.8 fL (80.0-100.0); Mean Platelet Volume 8.9; Monocytes # (A) 0.8 k/uL (0-1.0); Monocytes % (A) 7 %; Neutrophils # (A) 8.6 k/uL (1.3-7.7); Neutrophils % (A) 77 %; Platelet Count 132 k/uL (150-450); RBC 3.56 m/uL (4.30-5.90); RDW 13.9 % (11.5-15.5); WBC 11.1 k/uL (3.8-10.6)
[2020-07-31 04:51] LABS: African American GFR (CKD) >90 (>60 ml/min/1.73 sqM); Anion Gap 8 mmol/L; Blood Urea Nitrogen 19 mg/dL (9-20); Calcium 8.5 mg/dL (8.4-10.2); Carbon Dioxide 22 mmol/L (22-30); Chloride 110 mmol/L (98-107); Glucose 93 mg/dL (74-99); Non-African American GFR(CKD) 89 (>60 ml/min/1.73 sqM); Potassium 3.8 mmol/L (3.5-5.1); Sodium 140 mmol/L (137-145)
[2020-07-31] MEDS ORDERED: POTASSIUM CHLORIDE ER 20 MEQ TAB.ER PO SCH (06:00)
--- NOTE | 2020-07-31 07:27 | XR ---
EXAMINATION TYPE: XR chest 1V portable DATE OF EXAM: 07/31/2020 COMPARISON: Prior chest x-ray 07/30/2020 HISTORY: Abnormal chest x-ray, extubated TECHNIQUE: Single frontal view of the chest is obtained. FINDINGS: Endotracheal tube and NG tube have been removed. Patient is post median sternotomy and lef t atrial appendage clipping placement. Patient is rotated. Right jugular central venous catheter show s the distal tip in the right atrium, there are overlying leads. No evident pneumothorax. Retrocardia c density persists, the left hemidiaphragm is obscured. Aorta is dense. IMPRESSION: Possible left lower lobe atelectasis versus pneumonia and associated effusion. Interval extubation.
[2020-07-31] MEDS: METOPROLOL TARTRATE 50 MG TAB PO SCH ×3 (08:51→21:16)
[2020-07-31] MEDS ORDERED: HALOPERIDOL LACTATE 5 MG/ML 1 ML VIAL IVP PRN (08:51)
[2020-07-31] MEDS: HEPARIN SODIUM,PORCINE 5,000 UNIT/ML 1 ML VIAL SQ SCH ×3 (08:51→21:16)
[2020-07-31] MEDS: CLOPIDOGREL 75 MG TAB PO SCH ×2 (08:51→09:00)
[2020-07-31] MEDS: amLODIPine 10 MG TAB PO SCH ×2 (08:51→10:23)
[2020-07-31] MEDS: ATORVASTATIN 40 MG TAB PO SCH ×2 (08:52→10:24)
[2020-07-31] MEDS: lisinopriL 10 MG TAB PO SCH ×2 (08:52→10:24)
[2020-07-31] MEDS: AMIODARONE 200 MG TAB PO SCH ×4 (08:52→21:16)
[2020-07-31] MEDS: ASPIRIN 81 MG PO SCH ×2 (08:52→10:24)
[2020-07-31] MEDS: IPRATROPIUM-ALBUTEROL 3 ML NEB INHALATION SCH ×4 (08:53→20:10)
--- NOTE | 2020-07-31 10:46 | P.PN ---
Subjective Progress Note Date: 07/31/20 Principal diagnosis: Cardiopulmonary arrest This is a 65-year-old gentleman with a history of paroxysmal atrial fibrillation, hypertension, hyperlipidemia, chronic tobacco dependence, peripheral artery disease with previous aorto bifemoral bypass in 2004. He was here in May 2020 for a non-ST segment elevation myocardial infarction and found have significant multivessel coronary disease. On 05/24/2020 he had undergone an off pump coronary artery bypass graft surgery 4 with a BERNARDO to the LAD, reverse saphenous vein grafts to the RCA, radial artery to the intermediate coronary artery, reverse saphenous vein graft to the first diagonal branch. He has a history of severe ischemic cardiomyopathy with the most recent echocardiogram revealing ejection fraction 25-30%. The patient did have a LifeVest at home. Shortly after midnight his heard him making strange noises and found him unresponsive. He did not have his LifeVest on at the time. She initiated CPR EMS was called and he was brought here to the emergency room. He did develop return of spontaneous circulation. He is intubated on the mechanical ventilator. He is seen in the emergency room. Initial vent settings with assist control at a rate of 16, tidal volume 450, FiO2 100% and a PEEP of 5. Blood gases revealed a pO2 of 171, pCO2 34, pH 7.32 on 80% FiO2. Chest x- ray revealed moderate congestive heart failure with possible superimposed pneumonia especially in the right lung. Possible aspiration. Computed tomography scan of the brain revealed no acute intracranial findings. EKG reve als sinus rhythm with occasional PVCs and a right bundle branch block pattern. Repeat echocardiogram reveals severe global hypokinesis of the left ventricle with ejection fraction 20-25%. White count 15.0. Hemoglobin 14.3. Sodium 138. Potassium 4.8. Bicarb 14. Creatinine 1.26. Lactic acid 5.7. Troponin 0.068. AST 391. ALT 476. Velásquez virus by PCR not detected. 0.9 normal saline at 100 ML's per hour. On amiodarone at 1 mg per minute. Propofol at 20 mcg/kg/m. Initiated on bronchodilators. Reevaluated today on 07/26/20, remains in the ICU intubated and mechanically ventilated. His ventilator settings are assist control rate of 16 per volume is 450 FiO2 is 40% and PEEP of 5. BG showed a pO2 of 89 pCO2 of 32 pH of 7.41, hence no changes were made in his ventilatory settings. His drips include propofol at 40 mcg/kg/m, he is on 0.9 normal saline at 50 mL per hour, and on amiodarone at 1 mg/m. Chest x-ray showed evidence of cardiomegaly, tiny left pleural effusion, patchy left basilar atelectasis, and endotracheal tube was noted to be sitting high in the trachea, this was advanced about 2.5 cm down WBC count is 18.2 hemoglobin is 13.6. Basic metabolic profile is normal, transaminases are slightly elevated including AST of 170 and ALT of 367. Reevaluated today on 07/27/20, patient remains in the ICU, intubated and mechanically ventilated. He is on assist control rate of 16 tidal volume is 450 FiO2 is 40% and PEEP of 5. ABG showed a pO2 of 88 pCO2 of 32 pH of 7.43, hence he remained on the same ventilator settings. Hemodynamically the patient is not requiring any pressors. However because of his initial presentation of ventricular fibrillation, patient remains on amiodarone at 1 mg/m, he is on propofol at 40 mcg/kg/m, and on 0.9 normal saline at 50 mL per hour. Patient is quite sedated, I recommended holding propofol, and I came back to assess his men jeanine status, patient was not opening eyes, was not following any instructions, he was noted to be extremely agitated, obtunded, and again not able to follow any instructions he was extremely tachypneic and tachycardic has had to place him back on sedation/propofol. I recommended a neurological consultation on this patient as the patient may have developed significant anoxic brain injury. Patient apparently had a long downtime when he arrested. Patient is known to have history of severe LV dysfunction ejection fraction is 20-25%, and he was not wearing his LifeVest at the time of his cardiac arrest. Reevaluated today on 07/28/20, patient remains in the ICU, intubated and mechanically ventilated. He is on assist control rate of 16 tidal volume is 450 FiO2 is 40% PEEP of 5. Patient had an ABG showed a pO2 of 98 pCO2 of 33 pH of 7.44. Remains on propofol at 40 mcg/kg/m amiodarone at 1 mg/m patient remains on enteral feeding, vital hp bolus feedings. Patient spiked a fever earlier th is morning temp is 101.2, hence I have recommended starting the patient empirically on Zosyn and starting the patient on Tylenol when necessary. His chest x-ray showed minimal bibasilar atelectasis or early infiltrates, patient was a great set up for aspiration pneumonia. Hence I will treat as such. WBC count today is 11.9 hemoglobin is 10.8. Electrolytes are normal. BUN is 23 creatinine is 1.39. EEG was suggestive of hypoxic anoxic encephalopathy however it was felt that the EEG showed preserved background pertaining to relatively good prognosis. Clinically the patient has been placed on sedation interruption, and he gets extremely agitated, restless, he was able to squeeze one hand only. Otherwise could not get a better assessment of mental status may eventually consider tomorrow placing the patient on Precedex instead of propofol and try to assess mental status exam on Precedex Patient was reevaluated today on 07/29/20, remains in the ICU, intubated and mechanically ventilated. Patient is on assist control rate of 16 tidal volume is 450 FiO2 is 40% PEEP of 5. Patient had low-grade temp last night, he is already on Zosyn, cultures are negative so far. ABG showed a pO2 of 88 pCO2 of 34 pH of 7.42, hence no change was made in the ventilator settings. A shunt remains on propofol at 40 mcg/kg/m, and he is on amiodarone at 1 mg/m. I will switch the patient today to Precedex, and I would assess the mental status, and if tolerated and if the mental status seems appropriate, may continue Precedex, otherwise I will switch him back to propofol. Patient was briefly off propofol, and according to the nurse he was arousable, agitated, and for the first time he was actually comprehending and following simple instructions. But because of his agitation I could not pursue this further and place the patient pressure support and CPAP, although that something to be addressed next. My biggest concern on this patient was anoxic brain injury, seems to be mild, and the p atient is possibly ready to be weaned and extubated in the next 24 hours. May have to use Precedex instead of propofol in the weaning process. Chest x-ray showed minimal basilar atelectasis especially at the left base. On 07/30/2020 patient seen in follow-up in the intensive care unit. He is cur rently awake and alert, he remains on small dose of Precedex is 0.3 mics per kilo per minute, and 0.9 normal saline at a rate of 20 ML per hour, he is much more ill, non-agitated, he is following commands, he is showing me thumbs up with both hands, he is wiggling toes on command, very cooperative. He remains on assist control mode of ventilation with a rate of 16, tidal lungs were 50, FiO2 40% and PEEP of 5, this morning's blood gases show pO2 of 83, pCO2 36, and pH of 7.41. Chest x-ray has been reviewed showing no change in bibasilar opacities. Hemodynamically patient has remained stable. Remains on Zosyn for empiric antibiotic coverage. Did have a low-grade fever last night at midnight with a temp of 100.1F. Blood and sputum cultures show no growth. These labs have been reviewed, showing white blood cell count of 11, hemoglobin of 10.4, sodium of 139, potassium 3.7, chloride is 110, CO2 is 24, B1 is 26 and creatinine 1.03. Patient was given per support trial with the pressure support of 5, and CPAP of 5, and his weaning parameters showed tidal volume of 525, vital capacity of 1.4 L, RSBI of 28, NIF negative is -25, and minute ventilation of 12.14 L/m. On 07/31/2020 patient seen in follow-up in the intensive care unit, patient was successfully weaned and extubated yesterday, this morning he is on 4 L of oxygen with a pulse ox of 95%, hemodynamically she stable, vasoactive drips, he is currently on 0.9 with hematocrit of 20 ML per hour, he is in sinus mechanism, hemodynamically has been stable, he has had no fever or chills last 24 hours. Today's chest that has been reviewed showing possible left lower lobe atelectasis versus pneumonia and associated effusion. Today's labs have been reviewed, showing white blood cell count of 11.1, hemoglobin of 10.9, and renal profile are unremarkable. His blood and sputum cultures have been negative, remains on oral amiodarone, remains in sinus mechanism with a controlled rate, he is on Zosyn for empiric antibiotic coverage for possibility of aspiration pneumonia, he is on breathing treatments, this morning patient is awake and alert, however he is very suspicious, he wants to be transferred to the [facility] where he had his bypass surgery recently, he doesn't believe me that he is in fact at the [facility] where he had his surgery. He wants to talk to his , he wants to be urgently transferred out of here. Appears to be delirious, slightly anxious, but appears to be in no acute distress. His slight agitation seems to be escalating since this morning according to nurses. We will add when necessary doses of Haldol, we'll ask neurology to reevaluate the patient. We discontinued his narcotics. Vital signs are stable. Objective - Vital Signs Vital signs: Vital Signs Temp 98.3 F 07/31/20 04:00 Pulse 81 07/31/20 09:06 Resp 17 07/31/20 07:00 BP 146/73 07/31/20 07:00 Pulse Ox 95 07/31/20 08:53 Intake & Output 07/30/20 07/31/20 07/31/20 18:59 06:59 18:59 Intake Total 595.132 600 110 Output Total 765 985 455 Balance -169.868 -385 -345 Weight 82.4 kg Intake: IV 340 600 110 Sodium Chloride 0.9% 1, 340 600 110 000 ml @ 50 mls/hr IV . Q20H [facility] Rx#:[id number] Intake, IV Titration 25.132 Amount Dexmedetomidine/0.9% NaCl 18.746 (Pmx) 400 mcg In Empty Bag 1 bag @ Titrate IV . Q0M [facility] Rx#:[id number] propofoL 1,000 mg In 6.386 Empty Bag 1 bag @ Titrate IV .Q0M [facility] Rx#: [id number] Tube Feeding 230 Output: Urine [id number] Other: Voiding Method Indwelling Catheter Indwelling Catheter ABP, PAP, CO, CI - Last Documented Arterial Blood Pressure 128/66 - Exam GENERAL EXAM: Alert, confused, suspicious, 65-year-old white male, 3 liters of oxygen comfortable in no apparent distress. HEAD: Normocephalic/atraumatic. EYES: Normal reaction of pupils, equal size. Conjunctiva pink, sclera white. NOSE: Clear with pink turbinates. THROAT: No erythema or exudates. NECK: No masses, no JVD, no thyroid enlargement, no adenopathy. CHEST: No chest wall deformity. Symmetrical expansion. LUNGS: Equal air entry with no crackles, wheeze, rhonchi or dullness. CVS: Regular rate and rhythm, normal S1 and S2, no gallops, no murmurs, no rubs ABDOMEN: Soft, nontender. No hepatosplenomegaly, normal bowel sounds, no guarding or rigidity. EXTREMITIES: No clubbing, mild nonpitting edema in bilateral hands, no cyanosis, 2+ pulses and upper and lower extremities. MUSCULOSKELETAL: Muscle strength and tone normal. SPINE: No scoliosis or deformity SKIN: No rashes CENTRAL NERVOUS SYSTEM: Alert and oriented -1. No focal deficits, tone is normal in all 4 extremities. PSYCHIATRIC: Alert and oriented -1. Appropriate affect. Intact judgment and insight. - Labs CBC & Chem 7: 07/31/20 04:30 07/31/20 04:30 Labs: Abnormal Lab Results - Last 24 Hours (Table) 07/30/20 07/31/20 07/31/20 Range/Units 13:05 04:30 04:30 WBC 11.1 H (3.8-10.6) k/uL RBC 3.56 L (4.30-5.90) m/uL Hgb 10.9 L (13.0-17.5) gm/dL Hct 32.7 L (39.0-53.0) % Plt Count 132 L (150-450) k/uL Neutrophils # 8.6 H (1.3-7.7) k/uL Chloride 110 H (98-107) mmol/L POC Glucose (mg/dL) 132 H (75-99) mg/dL Microbiology - Last 24 Hours (Table) 07/27/20 00:15 Blood Culture - Preliminary Blood No Growth after 96 hours Assessment and Plan Plan: Assessment: #1. Acute hypoxic respiratory failure secondary to cardiopulmonary arrest. Patient had ventricular fibrillation secondary to severe cardiomyopathy and LV dysfunction, was resuscitated, required defibrillation 4, CPR, with return of spontaneous circulation. he was successfully weaned and extubated on 07/30/2020 #2. Rule out mild anoxic brain injury secondary to cardiac arrest, however his mental status has improved, patient is awake and alert, following commands on today's exam on 07/30/2020, and was successfully weaned and extubated #3. Severe cardiomyopathy and LV dysfunction, patient was supposed to be wearing his LifeVest at the time of cardiac arrest which he was not wearing at the time #4. Severe ischemic cardiomyopathy #5. Recent history of bypass grafting 4 on 05/24/2020 #6. Paroxysmal atrial fibrillation, currently in sinus mechanism #7. History of left ventricular thrombus #8. Benign essential hypertension #9. Peripheral vessel occlusive disease and previous aortobifemoral bypass in 2004 #10. History of CVA and left hand weakness in March 2020 #11. Possible aspiration pneumonia on Zosyn #12. Acute metabolic encephalopathy possibly related to mild anoxic brain injury, neurology following Plan: Patient has been extubated since yesterday, tolerating extubation well so far, no worsening dyspnea, continue weaning FiO2, incentive spirometry to the bedside, encourage deep breathing and coughing, maintain aspiration precautions, continue with empiric antibiotics for now, we'll obtain a pro-calcitonin level, hold all 2 mg every 4 hours as needed for delirium/agitation, hold all narcotics and sedatives, avoid benzodiazepines, avoid anticholinergics, lwe will ask neurologist to see him again. GI and DVT prophylaxis. Patient could be transferred out of intensive care unit to [facility] care with the project safety manager. I performed a history & physical examination of the patient and discussed their management with my nurse practitioner, Deedee Turcios. I reviewed the nurse practitioner's note and agree with the documented findings and plan of care. Lung sounds are positive for diminished breath sounds. The findings and the impression was discussed with the patient. I attest to the documentation by the nurse practitioner. Time with Patient: Greater than 30
[2020-07-31] MEDS ORDERED: ENALAPRILAT 1.25 MG/ML 1 ML VIAL IVP PRN (10:51)
[2020-07-31] MEDS: PANTOPRAZOLE 40 MG/10 ML VIAL IVP SCH (10:53)
[2020-07-31 11:59] LABS: Glucose,Whole Blood 101 mg/dL (75-99)
--- NOTE | 2020-07-31 12:37 | P.PN ---
Subjective Progress Note Date: 07/31/20 Patient is doing well today. He was successfully extubated yesterday. He was up in the chair when I saw him. His mentation appears to be good to me and patient was oriented to himself and to the place. He also was able to explain to me why he is in the hospital and how his save his life. Earlier this morning he was having episodes of agitation requiring haloperidol per nursing staff. He seems to have good appetite. Objective - Vital Signs Vital signs: Vital Signs Temp 98.2 F 07/31/20 08:00 Pulse 84 07/31/20 12:31 Resp 20 07/31/20 10:00 BP 141/62 07/31/20 10:00 Pulse Ox 95 07/31/20 10:00 Intake & Output 07/30/20 07/31/20 07/31/20 18:59 06:59 18:59 Intake Total 595.132 600 110 Output Total 765 985 455 Balance -169.868 -385 -345 Weight 82.4 kg Intake: IV 340 600 110 Sodium Chloride 0.9% 1, 340 600 110 000 ml @ 50 mls/hr IV . Q20H [facility] Rx#:[id number] Intake, IV Titration 25.132 Amount Dexmedetomidine/0.9% NaCl 18.746 (Pmx) 400 mcg In Empty Bag 1 bag @ Titrate IV . Q0M [facility] Rx#:[id number] propofoL 1,000 mg In 6.386 Empty Bag 1 bag @ Titrate IV .Q0M [facility]DO Rx#: [id number] Tube Feeding 230 Output: Urine [phone] Other: Voiding Method Indwelling Catheter Indwelling Catheter Indwelling Catheter ABP, PAP, CO, CI - Last Documented Arterial Blood Pressure 166/56 - Exam General: The patient is awake and alert, in no distress Eye: there is normal conjunctiva bilaterally. Neck: The neck is supple, there is no JVD. Cardiovascular: Normal S1-S2, no S3-S4, no murmurs. Respiratory: Lungs clear to auscultation bilaterally Gastrointestinal: Abdomen is soft, nontender Musculoskeletal: There is no pedal edema. Neurological:. Speech is normal. Skin: Skin is warm and dry - Labs CBC & Chem 7: 07/31/20 04:30 07/31/20 04:30 Labs: Abnormal Lab Results - Last 24 Hours (Table) 07/30/20 07/31/20 07/31/20 Range/Units 13:05 04:30 04:30 WBC 11.1 H (3.8-10.6) k/uL RBC 3.56 L (4.30-5.90) m/uL Hgb 10.9 L (13.0-17.5) gm/dL Hct 32.7 L (39.0-53.0) % Plt Count 132 L (150-450) k/uL Neutrophils # 8.6 H (1.3-7.7) k/uL Chloride 110 H (98-107) mmol/L POC Glucose (mg/dL) 132 H (75-99) mg/dL 07/31/20 Range/Units 11:58 WBC (3.8-10.6) k/uL RBC (4.30-5.90) m/uL Hgb (13.0-17.5) gm/dL Hct (39.0-53.0) % Plt Count (150-450) k/uL Neutrophils # (1.3-7.7) k/uL Chloride (98-107) mmol/L POC Glucose (mg/dL) 101 H (75-99) mg/dL Microbiology - Last 24 Hours (Table) 07/27/20 00:15 Blood Culture - Preliminary Blood No Growth after 96 hours Assessment and Plan Assessment: This is a 65-year-old patient of Dr. Rosalino Mcallister. Patient was here in the hosp ital in March of this year with a stroke and left hand weakness. CHF. Atrial fibrillation. Left ventricular thrombus. Has a history of AAA repair. Patient's heard a thud in the living room and found him on the floor. She started doing chest compressions. 911 was called. Patient did receive DC shock at least 2, IV amiodarone, fluid bolus, epinephrine at least 3 doses and patient was brought to the ER. Patient intubated and admitted to the ICU for further management of his medical problems noted below Assessment: -Cardiac arrest, witnessed, in a patient with known triple-vessel coronary artery disease. -Coronary artery [id number] as per cardiac catheterization March 2020: Managed medically. Back in March of was seen by cardiothoracic team Dr. Gleason. Given then, acute stroke, left ventricle thrombus. It was decided that patient was very high risk for cardiac bypass and he was to be managed medically. -Chronic congestive heart failure from systolic dysfunction EF 20-25%, from coronary artery disease -Left ventricular thrombus, as per cardiac catheterization in March 2020-follow as per cardiology -Essential hypertension -Hyperlipidemia -Patient has a life vest at home-plan per cardiology to have an ICD 1 stable -Acute hypoxic respiratory failure requiring ventilator support extubated successfully on 07/30 Plan: Continue DuoNeb, amlodipine, aspirin, Lipitor, Plavix, Lopressor. DVT prophylaxis with subcu heparin, GI prophylaxis with IV Protonix Anticoagulation per cardiology based on the cardiac catheter results showing the left ventricular thrombus in March from this year. Repeat lab work in the morning
[2020-07-31 16:41] LABS: Glucose,Whole Blood 96 mg/dL (75-99)
--- NOTE | 2020-07-31 17:21 | P.PN ---
Subjective Progress Note Date: 07/31/20 Patient was seen at bedside and the pontine him per the patient's nurse she stated that he has fluctuation where he gets agitated refusing his medication and those times that he is less agitated that. Upon seeing him that he seemed very calm and cooperative. Objective - Vital Signs Vital signs: Vital Signs Temp 97.9 F 07/31/20 16:00 Pulse 90 07/31/20 16:00 Resp 18 07/31/20 16:00 BP 132/76 07/31/20 16:00 Pulse Ox 94 L 07/31/20 16:00 Intake & Output 07/30/20 07/31/20 07/31/20 18:59 06:59 18:59 Intake Total 595.132 600 530 Output Total 765 985 765 Balance -169.868 -385 -235 Weight 82.4 kg Intake: IV 340 600 230 Sodium Chloride 0.9% 1, 340 600 230 000 ml @ 50 mls/hr IV . Q20H [facility] Rx#:[id number] Intake, IV Titration 25.132 100 Amount Dexmedetomidine/0.9% NaCl 18.746 (Pmx) 400 mcg In Empty Bag 1 bag @ Titrate IV . Q0M [facility] Rx#:[id number] Piperacillin-Tazobactam 3 100 .375 gm In Sodium Chloride 0.9% 100 ml @ 25 mls/hr IVPB Q8HR [facility] Rx# :[id number] propofoL 1,000 mg In 6.386 Empty Bag 1 bag @ Titrate IV .Q0M [facility] Rx#: [id number] Oral 200 Tube Feeding 230 Output: Urine [phone] Other: Voiding Method Indwelling Catheter Indwelling Catheter Indwelling Catheter ABP, PAP, CO, CI - Last Documented Arterial Blood Pressure 151/53 - Exam GENERAL: The patient is lying in bed and is not in acute distress. NEUROLOGICAL: Higher mental function: The patient is awake, alert, oriented to self, place and time. Patient is following simple commands. No aphasia and no neglect. Cranial nerves: The pupils are round, equal and reactive to light . Visual locke are full to confrontation throughout. Extraocular movement is intact no nystagmus is noted. The facial strength is normal throughout. No dysarthria. Motor: Gait is deferred. The strength is left hand is 5-/5. Otherwise 5/5 throughout. Normal tone and bulk. Sensation: Unable to assess because of his cooperation. Reflexes (right/left): 2+ throughout. Plantars are downgoing bilaterally. - Labs CBC & Chem 7: 07/31/20 04:30 07/31/20 04:30 Labs: Abnormal Lab Results - Last 24 Hours (Table) 07/31/20 07/31/20 07/31/20 Range/Units 04:30 04:30 11:58 WBC 11.1 H (3.8-10.6) k/uL RBC 3.56 L (4.30-5.90) m/uL Hgb 10.9 L (13.0-17.5) gm/dL Hct 32.7 L (39.0-53.0) % Plt Count 132 L (150-450) k/uL Neutrophils # 8.6 H (1.3-7.7) k/uL Chloride 110 H (98-107) mmol/L POC Glucose (mg/dL) 101 H (75-99) mg/dL Microbiology - Last 24 Hours (Table) 07/27/20 00:15 Blood Culture - Preliminary Blood No Growth after 96 hours Assessment and Plan Assessment: * Delerium---ICU stay and aspiration pneumonia * Status post witnessed Cardiac arrest at home. * Acute hypoxic respiratory failure secondary to cardiopulmonary arrest. * Possible aspiration pneumonia on Zosyn * Severe cardiomyopathy and left ventricular dysfunction. * History of ischemic CVA with left hand weakness 03/29/2020. * Paroxysmal atrial fibrillation. * History of left-ventricular thrombus. * Hypertension * History of tobacco use * Hyperlipidemia Plan: * EEG was performed (07/27/2020), which wis reported as revealed abnormal sleep EEG because of intermittent generalized suppressed activity for 1-2 seconds. This can be seen with hypoxic anoxic encephalopathies. However fairly well preserved background was also seen during most of the study pertaining to relatively good prognosis. Clinical correlation recommended. No epileptiform activity was seen. * Regarding delirium the patient was started on Haldol 2 mg every 4 hours as needed. If Oh's was not helping I recommend Seroquel instead of the oh goal and we can start with 25 mg 1 tablet twice a day. So recommend during the day to have the lights on and the per the patient to be interactive as much as possible with the staff members if possible. While the opposite during the nighttime. If his delirium continues to be uncontrolled recommend psychiatry consultation. * Medical management as per cardiology/IM/critical care. We'll continue to follow. Plan was discussed with the patient's nurse. Mau Curtis M.D. Neuro-hospitalist Time with Patient: Less than 30
--- NOTE | 2020-07-31 17:22 | PN ---
PROGRESS NOTE FOLLOW-UP NOTE: Narayan Barnard is a 65-year-old gentleman who was admitted to hospital with cardiorespiratory arrest following ventricular fibrillation. He has known ischemic cardiomyopathy with severe LV dysfunction. This morning he is extubated and appears somewhat confused at rest, but stable hemodynamically. He denies any chest pain. On examination, heart rate is 78 beats per minute. Blood pressure is 140/60, respiratory rate is 18. Chest exam reveals good air entry bilaterally. Heart exam reveals first and second heart sounds. Systolic murmur at the apex. Abdomen is soft. Examination of extremities reveals mild edema. Peripheral pulses are felt. Labs show a creatinine of 0.9. Potassium is 3.8. Hemoglobin is 10.9. Current medications include amiodarone 200 t.i.d., amlodipine 10 mg daily, aspirin, Lipitor, Plavix, insulin, Lopressor and Zestril 10 mg daily. ASSESSMENT: 1. Status post cardiac arrest. 2. Ischemic cardiomyopathy. 3. Coronary artery disease, status post coronary artery bypass grafting. 4. Mild confusion. PLAN: Continue current medications. MMODL / IJN: [id number] /
[2020-07-31 23:33] LABS: Glucose,Whole Blood 104 mg/dL (75-99)
[2020-08-01 04:07] LABS: Basophils # (A) 0.1 k/uL (0-0.2); Basophils % (A) 1 %; Eosinophils # (A) 0.2 k/uL (0-0.7); Eosinophils % (A) 2 %; HCT 31.3 % (39.0-53.0); HGB 10.3 gm/dL (13.0-17.5); Lymphocytes # (A) 1.2 k/uL (1.0-4.8); Lymphocytes % (A) 11 %; MCH 30.3 pg (25.0-35.0); MCV 91.8 fL (80.0-100.0); Mean Platelet Volume 8.2; Monocytes # (A) 0.8 k/uL (0-1.0); Monocytes % (A) 7 %; Neutrophils # (A) 8.1 k/uL (1.3-7.7); Neutrophils % (A) 77 %; Platelet Count 142 k/uL (150-450); RBC 3.41 m/uL (4.30-5.90); RDW 13.9 % (11.5-15.5); WBC 10.6 k/uL (3.8-10.6)
[2020-08-01 04:24] LABS: African American GFR (CKD) >90 (>60 ml/min/1.73 sqM); Anion Gap 2 mmol/L; Blood Urea Nitrogen 19 mg/dL (9-20); Calcium 8.4 mg/dL (8.4-10.2); Carbon Dioxide 26 mmol/L (22-30); Chloride 113 mmol/L (98-107); Glucose 100 mg/dL (74-99); Non-African American GFR(CKD) 89 (>60 ml/min/1.73 sqM); Potassium 3.9 mmol/L (3.5-5.1); Sodium 141 mmol/L (137-145)
[2020-08-01] MEDS: INSULIN ASPART (NovoLOG) 100 UNIT/ML VIAL SQ SCH (05:12)
[2020-08-01] MEDS: IPRATROPIUM-ALBUTEROL 3 ML NEB INHALATION SCH ×4 (07:50→20:54)
[2020-08-01] MEDS: HEPARIN SODIUM,PORCINE 5,000 UNIT/ML 1 ML VIAL SQ SCH ×2 (07:59→21:55)
[2020-08-01] MEDS: PANTOPRAZOLE 40 MG/10 ML VIAL IVP SCH (07:59)
[2020-08-01] MEDS: ATORVASTATIN 40 MG TAB PO SCH (07:59)
[2020-08-01] MEDS: CLOPIDOGREL 75 MG TAB PO SCH (07:59)
[2020-08-01] MEDS: ASPIRIN 81 MG PO SCH (07:59)
[2020-08-01] MEDS: amLODIPine 10 MG TAB PO SCH (07:59)
[2020-08-01] MEDS: AMIODARONE 200 MG TAB PO SCH ×3 (07:59→21:55)
[2020-08-01] MEDS: lisinopriL 10 MG TAB PO SCH (07:59)
[2020-08-01] MEDS: METOPROLOL TARTRATE 50 MG TAB PO SCH ×2 (07:59→21:55)
[2020-08-01] MEDS: PIPERACILLIN-TAZOBACTAM 3.375 GM in SODIUM CHLORIDE 0.9% 100 ML IVPB SCH ×2 (08:00→15:17)
--- NOTE | 2020-08-01 10:24 | PN ---
PROGRESS NOTE A 65-year-old gentleman who was admitted to hospital with cardiopulmonary arrest secondary to ventricular fibrillation. He is much more alert and denies any symptoms today. On exam, afebrile. Heart rate is 74 beats per minute. Blood pressure is 159/70. O2 saturation is 96%. There is no jugular venous distention. Chest exam reveals good air entry bilaterally. Heart exam reveals first and second heart sounds. No gallop. No murmur. Abdomen is soft. Exam of extremities did not reveal any edema. Peripheral pulses are felt. LABS: Labs show a hemoglobin of 10.3. Potassium is 3.9. Creatinine is 0.9. ASSESSMENT: 1. Status post cardiac arrest. 2. Ischemic cardiomyopathy. 3. Coronary artery disease, status post CABG. 4. Confusion. PLAN: Patient is doing much better now. He is less confused. Once he is more stable clinically, we will consider cardiac catheterization on him. In the meantime, he will continue the amiodarone, Norvasc 10 mg daily, aspirin, Lipitor, Plavix, Zestril 10 mg daily, Lopressor 50 b.i.d. I am going to increase the dose of Zestril to 20 mg because of poorly controlled blood pressures. MMODL / IJN: [id number] /
--- NOTE | 2020-08-01 10:32 | P.PN ---
Subjective Progress Note Date: 08/01/20 Principal diagnosis: Cardiopulmonary arrest This is a 65-year-old gentleman with a history of paroxysmal atrial fibrillation, hypertension, hyperlipidemia, chronic tobacco dependence, peripheral artery disease with previous aorto bifemoral bypass in 2004. He was here in May 2020 for a non-ST segment elevation myocardial infarction and found have significant multivessel coronary disease. On 05/24/2020 he had undergone an off pump coronary artery bypass graft surgery 4 with a BERNARDO to the LAD, reverse saphenous vein grafts to the RCA, radial artery to the intermediate coronary artery, reverse saphenous vein graft to the first diagonal branch. He has a history of severe ischemic cardiomyopathy with the most recent echocardiogram revealing ejection fraction 25-30%. The patient did have a LifeVest at home. Shortly after midnight his heard him making strange noises and found him unresponsive. He did not have his LifeVest on at the time. She initiated CPR EMS was called and he was brought here to the emergency room. He did develop return of spontaneous circulation. He is intubated on the mechanical ventilator. He is seen in the emergency room. Initial vent settings with assist control at a rate of 16, tidal volume 450, FiO2 100% and a PEEP of 5. Blood gases revealed a pO2 of 171, pCO2 34, pH 7.32 on 80% FiO2. Chest x- ray revealed moderate congestive heart failure with possible superimposed pneumonia especially in the right lung. Possible aspiration. Computed tomography scan of the brain revealed no acute intracranial findings. EKG reve als sinus rhythm with occasional PVCs and a right bundle branch block pattern. Repeat echocardiogram reveals severe global hypokinesis of the left ventricle with ejection fraction 20-25%. White count 15.0. Hemoglobin 14.3. Sodium 138. Potassium 4.8. Bicarb 14. Creatinine 1.26. Lactic acid 5.7. Troponin 0.068. AST 391. ALT 476. Velásquez virus by PCR not detected. 0.9 normal saline at 100 ML's per hour. On amiodarone at 1 mg per minute. Propofol at 20 mcg/kg/m. Initiated on bronchodilators. Reevaluated today on 07/26/20, remains in the ICU intubated and mechanically ventilated. His ventilator settings are assist control rate of 16 per volume is 450 FiO2 is 40% and PEEP of 5. BG showed a pO2 of 89 pCO2 of 32 pH of 7.41, hence no changes were made in his ventilatory settings. His drips include propofol at 40 mcg/kg/m, he is on 0.9 normal saline at 50 mL per hour, and on amiodarone at 1 mg/m. Chest x-ray showed evidence of cardiomegaly, tiny left pleural effusion, patchy left basilar atelectasis, and endotracheal tube was noted to be sitting high in the trachea, this was advanced about 2.5 cm down WBC count is 18.2 hemoglobin is 13.6. Basic metabolic profile is normal, transaminases are slightly elevated including AST of 170 and ALT of 367. Reevaluated today on 07/27/20, patient remains in the ICU, intubated and mechanically ventilated. He is on assist control rate of 16 tidal volume is 450 FiO2 is 40% and PEEP of 5. ABG showed a pO2 of 88 pCO2 of 32 pH of 7.43, hence he remained on the same ventilator settings. Hemodynamically the patient is not requiring any pressors. However because of his initial presentation of ventricular fibrillation, patient remains on amiodarone at 1 mg/m, he is on propofol at 40 mcg/kg/m, and on 0.9 normal saline at 50 mL per hour. Patient is quite sedated, I recommended holding propofol, and I came back to assess his men jeanine status, patient was not opening eyes, was not following any instructions, he was noted to be extremely agitated, obtunded, and again not able to follow any instructions he was extremely tachypneic and tachycardic has had to place him back on sedation/propofol. I recommended a neurological consultation on this patient as the patient may have developed significant anoxic brain injury. Patient apparently had a long downtime when he arrested. Patient is known to have history of severe LV dysfunction ejection fraction is 20-25%, and he was not wearing his LifeVest at the time of his cardiac arrest. Reevaluated today on 07/28/20, patient remains in the ICU, intubated and mechanically ventilated. He is on assist control rate of 16 tidal volume is 450 FiO2 is 40% PEEP of 5. Patient had an ABG showed a pO2 of 98 pCO2 of 33 pH of 7.44. Remains on propofol at 40 mcg/kg/m amiodarone at 1 mg/m patient remains on enteral feeding, vital hp bolus feedings. Patient spiked a fever earlier th is morning temp is 101.2, hence I have recommended starting the patient empirically on Zosyn and starting the patient on Tylenol when necessary. His chest x-ray showed minimal bibasilar atelectasis or early infiltrates, patient was a great set up for aspiration pneumonia. Hence I will treat as such. WBC count today is 11.9 hemoglobin is 10.8. Electrolytes are normal. BUN is 23 creatinine is 1.39. EEG was suggestive of hypoxic anoxic encephalopathy however it was felt that the EEG showed preserved background pertaining to relatively good prognosis. Clinically the patient has been placed on sedation interruption, and he gets extremely agitated, restless, he was able to squeeze one hand only. Otherwise could not get a better assessment of mental status may eventually consider tomorrow placing the patient on Precedex instead of propofol and try to assess mental status exam on Precedex Patient was reevaluated today on 07/29/20, remains in the ICU, intubated and mechanically ventilated. Patient is on assist control rate of 16 tidal volume is 450 FiO2 is 40% PEEP of 5. Patient had low-grade temp last night, he is already on Zosyn, cultures are negative so far. ABG showed a pO2 of 88 pCO2 of 34 pH of 7.42, hence no change was made in the ventilator settings. A shunt remains on propofol at 40 mcg/kg/m, and he is on amiodarone at 1 mg/m. I will switch the patient today to Precedex, and I would assess the mental status, and if tolerated and if the mental status seems appropriate, may continue Precedex, otherwise I will switch him back to propofol. Patient was briefly off propofol, and according to the nurse he was arousable, agitated, and for the first time he was actually comprehending and following simple instructions. But because of his agitation I could not pursue this further and place the patient pressure support and CPAP, although that something to be addressed next. My biggest concern on this patient was anoxic brain injury, seems to be mild, and the p atient is possibly ready to be weaned and extubated in the next 24 hours. May have to use Precedex instead of propofol in the weaning process. Chest x-ray showed minimal basilar atelectasis especially at the left base. On 07/30/2020 patient seen in follow-up in the intensive care unit. He is cur rently awake and alert, he remains on small dose of Precedex is 0.3 mics per kilo per minute, and 0.9 normal saline at a rate of 20 ML per hour, he is much more ill, non-agitated, he is following commands, he is showing me thumbs up with both hands, he is wiggling toes on command, very cooperative. He remains on assist control mode of ventilation with a rate of 16, tidal lungs were 50, FiO2 40% and PEEP of 5, this morning's blood gases show pO2 of 83, pCO2 36, and pH of 7.41. Chest x-ray has been reviewed showing no change in bibasilar opacities. Hemodynamically patient has remained stable. Remains on Zosyn for empiric antibiotic coverage. Did have a low-grade fever last night at midnight with a temp of 100.1F. Blood and sputum cultures show no growth. These labs have been reviewed, showing white blood cell count of 11, hemoglobin of 10.4, sodium of 139, potassium 3.7, chloride is 110, CO2 is 24, B1 is 26 and creatinine 1.03. Patient was given per support trial with the pressure support of 5, and CPAP of 5, and his weaning parameters showed tidal volume of 525, vital capacity of 1.4 L, RSBI of 28, NIF negative is -25, and minute ventilation of 12.14 L/m. On 07/31/2020 patient seen in follow-up in the intensive care unit, patient was successfully weaned and extubated yesterday, this morning he is on 4 L of oxygen with a pulse ox of 95%, hemodynamically she stable, vasoactive drips, he is currently on 0.9 with hematocrit of 20 ML per hour, he is in sinus mechanism, hemodynamically has been stable, he has had no fever or chills last 24 hours. Today's chest that has been reviewed showing possible left lower lobe atelectasis versus pneumonia and associated effusion. Today's labs have been reviewed, showing white blood cell count of 11.1, hemoglobin of 10.9, and renal profile are unremarkable. His blood and sputum cultures have been negative, remains on oral amiodarone, remains in sinus mechanism with a controlled rate, he is on Zosyn for empiric antibiotic coverage for possibility of aspiration pneumonia, he is on breathing treatments, this morning patient is awake and alert, however he is very suspicious, he wants to be transferred to the [facility] where he had his bypass surgery recently, he doesn't believe me that he is in fact at the [facility] where he had his surgery. He wants to talk to his , he wants to be urgently transferred out of here. Appears to be delirious, slightly anxious, but appears to be in no acute distress. His slight agitation seems to be escalating since this morning according to nurses. We will add when necessary doses of Haldol, we'll ask neurology to reevaluate the patient. We discontinued his narcotics. Vital signs are stable. On 08/01/2020 patient seen in follow-up in the intensive care unit, he is calm and comfortable, less agitated on today's exam, she is quite cooperative, he is on 3 L of oxygen his pulse ox 94-95%, his been afebrile, hemodynamically stable, he still confused, but he is oriented 2, hemoglobin the person and the place, she It was the , but he thought he was in June. Denies any difficulty breathing, today's exam reveals bilateral lower lobe crackles. Patient states he does not like the incentive spirometer, and she wants his to bring one from home for him. Dynamically has been stable, he has IV 0.9 normal saline at a rate of 20 ML per hour, he is tolerating oral diet although his appetite is poor. Nuys any chest pain, today's labs have been reviewed, showing limits AT 10.6, HEMOGLOBIN OF 10.3, electrolytes and renal profile were unremarkable. Pro-calcitonin level came back at 0.43, fever last 24 hours. His blood and sputum cultures have been negative Objective - Vital Signs Vital signs: Vital Signs Temp 98.1 F 08/01/20 08:00 Pulse 59 L 08/01/20 10:00 Resp 17 08/01/20 10:00 BP 143/68 08/01/20 09:00 Pulse Ox 95 08/01/20 10:00 Intake & Output 07/31/20 08/01/20 08/01/20 18:59 06:59 18:59 Intake Total 770 420 40 Output Total 915 730 145 Balance -145 -310 -105 Weight 82.7 kg Intake: IV 270 220 40 Sodium Chloride 0.9% 1, 270 220 40 000 ml @ 50 mls/hr IV . Q20H OSWALDO Rx#:[id number] Intake, IV Titration 200 100 Amount Piperacillin-Tazobactam 3 200 100 .375 gm In Sodium Chloride 0.9% 100 ml @ 25 mls/hr IVPB Q8HR OSWALDO Rx# :[id number] Oral 300 100 Output: Urine 915 730 145 Other: Voiding Method Indwelling Catheter Indwelling Catheter ABP, PAP, CO, CI - Last Documented Arterial Blood Pressure 151/53 - Exam GENERAL EXAM: Alert, confused, but more cooperative on today's exam, oriented to person and place, 65-year-old white male, 3 liters of oxygen with pulse ox of 94-95% comfortable in no apparent distress. HEAD: Normocephalic/atraumatic. EYES: Normal reaction of pupils, equal size. Conjunctiva pink, sclera white. NOSE: Clear with pink turbinates. THROAT: No erythema or exudates. NECK: No masses, no JVD, no thyroid enlargement, no adenopathy. CHEST: No chest wall deformity. Symmetrical expansion. LUNGS: Equal air entry with no crackles, wheeze, rhonchi or dullness. CVS: Regular rate and rhythm, normal S1 and S2, no gallops, no murmurs, no rubs ABDOMEN: Soft, nontender. No hepatosplenomegaly, normal bowel sounds, no guarding or rigidity. EXTREMITIES: No clubbing, mild nonpitting edema in bilateral hands, no cyanosis, 2+ pulses and upper and lower extremities. MUSCULOSKELETAL: Muscle strength and tone normal. SPINE: No scoliosis or deformity SKIN: No rashes CENTRAL NERVOUS SYSTEM: Alert and oriented -2. No focal deficits, tone is normal in all 4 extremities. PSYCHIATRIC: Alert and oriented -2. Appropriate affect. Intact judgment and insight. - Labs CBC & Chem 7: 08/01/20 03:50 08/01/20 03:50 Labs: Abnormal Lab Results - Last 24 Hours (Table) 07/31/20 07/31/20 07/31/20 Range/Units 04:30 11:58 23:32 RBC (4.30-5.90) m/uL Hgb (13.0-17.5) gm/dL Hct (39.0-53.0) % Plt Count (150-450) k/uL Neutrophils # (1.3-7.7) k/uL Chloride (98-107) mmol/L Glucose (74-99) mg/dL POC Glucose (mg/dL) 101 H 104 H (75-99) mg/dL Procalcitonin 0.43 H (0.02-0.09) ng/mL 08/01/20 08/01/20 Range/Units 03:50 03:50 RBC 3.41 L (4.30-5.90) m/uL Hgb 10.3 L (13.0-17.5) gm/dL Hct 31.3 L (39.0-53.0) % Plt Count 142 L (150-450) k/uL Neutrophils # 8.1 H (1.3-7.7) k/uL Chloride 113 H (98-107) mmol/L Glucose 100 H (74-99) mg/dL POC Glucose (mg/dL) (75-99) mg/dL Procalcitonin (0.02-0.09) ng/mL Microbiology - Last 24 Hours (Table) 07/27/20 00:15 Blood Culture - Preliminary Blood No Growth after 120 hours Assessment and Plan Plan: Assessment: #1. Acute hypoxic respiratory failure secondary to cardiopulmonary arrest. Patient had ventricular fibrillation secondary to severe cardiomyopathy and LV dysfunction, was resuscitated, required defibrillation 4, CPR, with return of spontaneous circulation. he was successfully weaned and extubated on 07/30/2020 #2. Rule out mild anoxic brain injury secondary to cardiac arrest, however his mental status has improved, patient is awake and alert, following commands on today's exam on 07/30/2020, and was successfully weaned and extubated #3. Severe cardiomyopathy and LV dysfunction, patient was supposed to be wearing his LifeVest at the time of cardiac arrest which he was not wearing at the time #4. Severe ischemic cardiomyopathy #5. Recent history of bypass grafting 4 on 05/24/2020 #6. Paroxysmal atrial fibrillation, currently in sinus mechanism #7. History of left ventricular thrombus #8. Benign essential hypertension #9. Peripheral vessel occlusive disease and previous aortobifemoral bypass in 2004 #10. History of CVA and left hand weakness in March 2020 #11. Possible aspiration pneumonia on Zosyn #12. Acute delirium related to critical illness, aspiration pneumonia, recent history of cardiac arrest, acute hypoxic respiratory failure requiring intubation and mechanical ventilation. He was started on Haldol Plan: Continue current medical treatment, encourage deep breathing and coughing, weaning FiO2, maintain aspiration precautions, patient is still confused, but not agitated, has required a couple doses of Haldol in the last 24 hours, seems to be improving, enforce day and night schedule, mobilize the patient, increase activity as tolerated, maintaining safety precautions. We'll continue with Zosyn, in view of elevated pro calcitonin, monitor febrile pattern, continue breathing treatments. Follow-up chest x-ray in the morning the patient is stable to transfer out of intensive care unit to [facility] today I performed a history & physical examination of the patient and discussed their management with my nurse practitioner, Deedee Turcios. I reviewed the nurse practitioner's note and agree with the documented findings and plan of care. Lung sounds are positive for diminished breath sounds. The findings and the impression was discussed with the patient. I attest to the documentation by the nurse practitioner. Time with Patient: Greater than 30
--- NOTE | 2020-08-01 13:14 | P.PN ---
Subjective Progress Note Date: 08/01/20 The patient nurse he is not agitated but have fluctuation of his mentation. Otherwise there is no focal deficits or numbness. Objective - Vital Signs Vital signs: Vital Signs Temp 98.1 F 08/01/20 08:00 Pulse 69 08/01/20 11:29 Resp 18 08/01/20 11:29 BP 143/68 08/01/20 09:00 Pulse Ox 95 08/01/20 10:00 Intake & Output 07/31/20 08/01/20 08/01/20 18:59 06:59 18:59 Intake Total 770 420 40 Output Total 915 730 145 Balance -145 -310 -105 Weight 82.7 kg Intake: IV 270 220 40 Sodium Chloride 0.9% 1, 270 220 40 000 ml @ 50 mls/hr IV . Q20H [facility]WALDO Rx#:[id number] Intake, IV Titration 200 100 Amount Piperacillin-Tazobactam 3 200 100 .375 gm In Sodium Chloride 0.9% 100 ml @ 25 mls/hr IVPB Q8HR OSWALDO Rx# :[id number] Oral 300 100 Output: Urine 915 730 145 Other: Voiding Method Indwelling Catheter Indwelling Catheter Indwelling Catheter ABP, PAP, CO, CI - Last Documented Arterial Blood Pressure 151/53 - Exam GENERAL: The patient is lying in bed and is not in acute distress. NEUROLOGICAL: Higher mental function: The patient is awake, alert, oriented to self, place and time. Patient is following simple commands. No aphasia and no neglect. Cranial nerves: The pupils are round, equal and reactive to light . Visual locke are full to confrontation throughout. Extraocular movement is intact no nystagmus is noted. The facial strength is normal throughout. No dysarthria. Motor: Gait is deferred. The strength is left hand is 5-/5. Otherwise 5/5 throughout. Normal tone and bulk. Sensation: Unable to assess because of his cooperation. Reflexes (right/left): 2+ throughout. Plantars are downgoing bilaterally. - Labs CBC & Chem 7: 08/01/20 03:50 08/01/20 03:50 Labs: Abnormal Lab Results - Last 24 Hours (Table) 07/31/20 07/31/20 08/01/20 Range/Units 04:30 23:32 03:50 RBC 3.41 L (4.30-5.90) m/uL Hgb 10.3 L (13.0-17.5) gm/dL Hct 31.3 L (39.0-53.0) % Plt Count 142 L (150-450) k/uL Neutrophils # 8.1 H (1.3-7.7) k/uL Chloride (98-107) mmol/L Glucose (74-99) mg/dL POC Glucose (mg/dL) 104 H (75-99) mg/dL Procalcitonin 0.43 H (0.02-0.09) ng/mL 08/01/20 Range/Units 03:50 RBC (4.30-5.90) m/uL Hgb (13.0-17.5) gm/dL Hct (39.0-53.0) % Plt Count (150-450) k/uL Neutrophils # (1.3-7.7) k/uL Chloride 113 H (98-107) mmol/L Glucose 100 H (74-99) mg/dL POC Glucose (mg/dL) (75-99) mg/dL Procalcitonin (0.02-0.09) ng/mL Microbiology - Last 24 Hours (Table) 07/27/20 00:15 Blood Culture - Preliminary Blood No Growth after 120 hours Assessment and Plan Assessment: * Delerium---ICU stay and aspiration pneumonia---improving * Status post witnessed Cardiac arrest at home. * Acute hypoxic respiratory failure secondary to cardiopulmonary arrest. * Possible aspiration pneumonia on Zosyn * Severe cardiomyopathy and left ventricular dysfunction. * History of ischemic CVA with left hand weakness 03/29/2020. * Paroxysmal atrial fibrillation. * History of left-ventricular thrombus. * Hypertension * History of tobacco use * Hyperlipidemia Plan: * EEG was performed (07/27/2020), which wis reported as revealed abnormal sleep EEG because of intermittent generalized suppressed activity for 1-2 seconds. This can be seen with hypoxic anoxic encephalopathies. However fairly well preserved background was also seen during most of the study pertaining to relatively good prognosis. Clinical correlation recommended. No epileptiform activity was seen. * Regarding delirium the patient was started on Haldol 2 mg every 4 hours as needed. If Haldol is not helping I recommend Seroquel instead of the oh goal and we can start with 25 mg 1 tablet twice a day. So recommend during the day to have the lights on and the per the patient to be interactive as much as possible with the staff members if possible. While the opposite durin g the nighttime. * Regarding assessment of the patient cognitive impact from the cardiac arrest, I recommend the patient get a neuropsych evaluation upon discharge. * Medical management as per cardiology/IM/critical care. We'll continue to follow. Plan was discussed with the patient's nurse. Mau Curtis M.D. Neuro-hospitalist Time with Patient: Less than 30
--- NOTE | 2020-08-01 15:29 | P.PN ---
Subjective Progress Note Date: 08/01/20 Patient is doing well today. He is up in the chair. He does not have any complaints. Objective - Vital Signs Vital signs: Vital Signs Temp 98.1 F 08/01/20 12:00 Pulse 77 08/01/20 15:22 Resp 26 H 08/01/20 14:00 BP 141/117 08/01/20 14:00 Pulse Ox 95 08/01/20 14:00 Intake & Output 07/31/20 08/01/20 08/01/20 18:59 06:59 18:59 Intake Total 770 420 260 Output Total 915 730 420 Balance -145 -310 -160 Weight 82.7 kg Intake: IV 270 220 260 Piperacillin-Tazobactam 3 100 .375 gm In Sodium Chloride 0.9% 100 ml @ 25 mls/hr IVPB Q8HR [facility] Rx# :[id number] Sodium Chloride 0.9% 1, 270 220 160 000 ml @ 50 mls/hr IV . Q20H [facility] Rx#:[id number] Intake, IV Titration 200 100 Amount Piperacillin-Tazobactam 3 200 100 .375 gm In Sodium Chloride 0.9% 100 ml @ 25 mls/hr IVPB Q8HR [facility] Rx# :[id number] Oral 300 100 Output: Urine 915 730 420 Other: Voiding Method Indwelling Catheter Indwelling Catheter Indwelling Catheter ABP, PAP, CO, CI - Last Documented Arterial Blood Pressure 151/53 - Exam General: The patient is awake and alert, in no distress Eye: there is normal conjunctiva bilaterally. Neck: The neck is supple, there is no JVD. Cardiovascular: Normal S1-S2, no S3-S4, no murmurs. Respiratory: Lungs clear to auscultation bilaterally Gastrointestinal: Abdomen is soft, nontender Musculoskeletal: There is no pedal edema. Neurological:. Speech is normal. Skin: Skin is warm and dry - Labs CBC & Chem 7: 08/01/20 03:50 08/01/20 03:50 Labs: Abnormal Lab Results - Last 24 Hours (Table) 07/31/20 07/31/20 08/01/20 Range/Units 04:30 23:32 03:50 RBC 3.41 L (4.30-5.90) m/uL Hgb 10.3 L (13.0-17.5) gm/dL Hct 31.3 L (39.0-53.0) % Plt Count 142 L (150-450) k/uL Neutrophils # 8.1 H (1.3-7.7) k/uL Chloride (98-107) mmol/L Glucose (74-99) mg/dL POC Glucose (mg/dL) 104 H (75-99) mg/dL Procalcitonin 0.43 H (0.02-0.09) ng/mL 08/01/20 Range/Units 03:50 RBC (4.30-5.90) m/uL Hgb (13.0-17.5) gm/dL Hct (39.0-53.0) % Plt Count (150-450) k/uL Neutrophils # (1.3-7.7) k/uL Chloride 113 H (98-107) mmol/L Glucose 100 H (74-99) mg/dL POC Glucose (mg/dL) (75-99) mg/dL Procalcitonin (0.02-0.09) ng/mL Microbiology - Last 24 Hours (Table) 07/27/20 00:15 Blood Culture - Preliminary Blood No Growth after 120 hours Assessment and Plan Assessment: This is a 65-year-old patient of Dr. Rosalino Mcallister. Patient has a complex past medical history noted below. He presented to the emergency room after he was found unresponsive by his started CPR and called 911. After receiving multiple doses of epinephrine and DC shock they were able to have a return of spontaneous circulation. Patient was intubated in the ER and admitted to the ICU. He was treated aggressively in the ICU for his medical problems noted below. -Cardiac arrest, witnessed, in a patient with known triple-vessel coronary artery disease. -Coronary artery [id number]-knbvat status post bypass surgery in May 2020 -Chronic congestive heart failure from systolic dysfunction EF 20-25% -Ischemic myopathy -Essential hypertension -Hyperlipidemia -Acute hypoxic respiratory failure requiring ventilator support extubated successfully on 07/30 Plan: Continue DuoNeb, amlodipine, aspirin, Lipitor, Plavix, Lopressor. DVT prophylaxis with subcu heparin, GI prophylaxis with IV Protonix Repeat lab work in the morning PT/OT evaluation Subacute rehab placement pending social work and clearance from other consultants
[2020-08-02] MEDS: MELATONIN 5 MG TABLET PO SCH ×2 (00:59→20:06)
[2020-08-02 05:08] LABS: Basophils # (A) 0.1 k/uL (0-0.2); Basophils % (A) 1 %; Eosinophils # (A) 0.3 k/uL (0-0.7); Eosinophils % (A) 3 %; HCT 33.9 % (39.0-53.0); Lymphocytes # (A) 1.3 k/uL (1.0-4.8); Lymphocytes % (A) 13 %; MCHC 32.5 g/dL (31.0-37.0); MCV 92.2 fL (80.0-100.0); Monocytes # (A) 0.7 k/uL (0-1.0); Monocytes % (A) 7 %; Neutrophils # (A) 7.4 k/uL (1.3-7.7); Neutrophils % (A) 74 %; Platelet Count 160 k/uL (150-450); RBC 3.68 m/uL (4.30-5.90); RDW 14.1 % (11.5-15.5)
[2020-08-02 05:31] LABS: African American GFR (CKD) >90 (>60 ml/min/1.73 sqM); Anion Gap 6 mmol/L; Blood Urea Nitrogen 21 mg/dL (9-20); Calcium 8.8 mg/dL (8.4-10.2); Carbon Dioxide 22 mmol/L (22-30); Chloride 111 mmol/L (98-107); Glucose 91 mg/dL (74-99); Non-African American GFR(CKD) 84 (>60 ml/min/1.73 sqM); Sodium 139 mmol/L (137-145)
[2020-08-02] MEDS: IPRATROPIUM-ALBUTEROL 3 ML NEB INHALATION SCH ×4 (07:52→19:39)
[2020-08-02] MEDS: PANTOPRAZOLE 40 MG/10 ML VIAL IVP SCH (08:40)
[2020-08-02] MEDS: ASPIRIN 81 MG PO SCH (08:45)
[2020-08-02] MEDS: HEPARIN SODIUM,PORCINE 5,000 UNIT/ML 1 ML VIAL SQ SCH ×2 (08:45→20:05)
[2020-08-02] MEDS: ATORVASTATIN 40 MG TAB PO SCH (08:45)
[2020-08-02] MEDS: CLOPIDOGREL 75 MG TAB PO SCH (08:45)
[2020-08-02] MEDS: amLODIPine 10 MG TAB PO SCH (08:45)
[2020-08-02] MEDS: lisinopriL 20 MG TAB PO SCH (08:45)
[2020-08-02] MEDS: METOPROLOL TARTRATE 50 MG TAB PO SCH ×2 (08:45→20:05)
[2020-08-02] MEDS: AMIODARONE 200 MG TAB PO SCH ×3 (08:45→22:43)
[2020-08-02] MEDS: PANTOPRAZOLE 40 MG TABLET PO SCH (08:46)
[2020-08-02] MEDS: PIPERACILLIN-TAZOBACTAM 3.375 GM in SODIUM CHLORIDE 0.9% 100 ML IVPB SCH ×5 (08:46→22:43)
--- NOTE | 2020-08-02 09:23 | PN ---
PROGRESS NOTE Narayan is a 65-year-old gentleman that is admitted to hospital with cardiorespiratory arrest, has had metabolic encephalopathy, intubated, currently extubated and doing much better. He is more alert, awake, less confused today. PHYSICAL EXAMINATION: On exam, comfortable at rest. Vital signs are stable. Chest exam reveals good air entry bilaterally. Heart exam reveals first and second heart sounds. No gallop. No murmur. Abdomen is soft. Exam of extremities did not reveal any edema. Peripheral pulses are felt. The patient is currently on Norvasc 10 mg daily, aspirin, Lipitor, Plavix, Vasotec, Zestril, Lopressor. ASSESSMENT: 1. Coronary artery disease, status post coronary artery bypass grafting. 2. Ischemic cardiomyopathy, status post cardiac arrest and confusion. PLAN: Will continue the patient on optimal medical therapy whenever he is more stable neurological, medically, he will need a cardiac cath and possible ICD. MMJOHN PAUL / ZORANN: [id number] /
--- NOTE | 2020-08-02 11:05 | P.PN ---
Subjective Progress Note Date: 08/02/20 Principal diagnosis: Cardiopulmonary arrest This is a 65-year-old gentleman with a history of paroxysmal atrial fibrillation, hypertension, hyperlipidemia, chronic tobacco dependence, peripheral artery disease with previous aorto bifemoral bypass in 2004. He was here in May 2020 for a non-ST segment elevation myocardial infarction and found have significant multivessel coronary disease. On 05/24/2020 he had undergone an off pump coronary artery bypass graft surgery 4 with a BERNARDO to the LAD, reverse saphenous vein grafts to the RCA, radial artery to the intermediate coronary artery, reverse saphenous vein graft to the first diagonal branch. He has a history of severe ischemic cardiomyopathy with the most recent echocardiogram revealing ejection fraction 25-30%. The patient did have a LifeVest at home. Shortly after midnight his heard him making strange noises and found him unresponsive. He did not have his LifeVest on at the time. She initiated CPR EMS was called and he was brought here to the emergency room. He did develop return of spontaneous circulation. He is intubated on the mechanical ventilator. He is seen in the emergency room. Initial vent settings with assist control at a rate of 16, tidal volume 450, FiO2 100% and a PEEP of 5. Blood gases revealed a pO2 of 171, pCO2 34, pH 7.32 on 80% FiO2. Chest x- ray revealed moderate congestive heart failure with possible superimposed pneumonia especially in the right lung. Possible aspiration. Computed tomography scan of the brain revealed no acute intracranial findings. EKG reve als sinus rhythm with occasional PVCs and a right bundle branch block pattern. Repeat echocardiogram reveals severe global hypokinesis of the left ventricle with ejection fraction 20-25%. White count 15.0. Hemoglobin 14.3. Sodium 138. Potassium 4.8. Bicarb 14. Creatinine 1.26. Lactic acid 5.7. Troponin 0.068. AST 391. ALT 476. Velásquez virus by PCR not detected. 0.9 normal saline at 100 ML's per hour. On amiodarone at 1 mg per minute. Propofol at 20 mcg/kg/m. Initiated on bronchodilators. Reevaluated today on 07/26/20, remains in the ICU intubated and mechanically ventilated. His ventilator settings are assist control rate of 16 per volume is 450 FiO2 is 40% and PEEP of 5. BG showed a pO2 of 89 pCO2 of 32 pH of 7.41, hence no changes were made in his ventilatory settings. His drips include propofol at 40 mcg/kg/m, he is on 0.9 normal saline at 50 mL per hour, and on amiodarone at 1 mg/m. Chest x-ray showed evidence of cardiomegaly, tiny left pleural effusion, patchy left basilar atelectasis, and endotracheal tube was noted to be sitting high in the trachea, this was advanced about 2.5 cm down WBC count is 18.2 hemoglobin is 13.6. Basic metabolic profile is normal, transaminases are slightly elevated including AST of 170 and ALT of 367. Reevaluated today on 07/27/20, patient remains in the ICU, intubated and mechanically ventilated. He is on assist control rate of 16 tidal volume is 450 FiO2 is 40% and PEEP of 5. ABG showed a pO2 of 88 pCO2 of 32 pH of 7.43, hence he remained on the same ventilator settings. Hemodynamically the patient is not requiring any pressors. However because of his initial presentation of ventricular fibrillation, patient remains on amiodarone at 1 mg/m, he is on propofol at 40 mcg/kg/m, and on 0.9 normal saline at 50 mL per hour. Patient is quite sedated, I recommended holding propofol, and I came back to assess his men jeanine status, patient was not opening eyes, was not following any instructions, he was noted to be extremely agitated, obtunded, and again not able to follow any instructions he was extremely tachypneic and tachycardic has had to place him back on sedation/propofol. I recommended a neurological consultation on this patient as the patient may have developed significant anoxic brain injury. Patient apparently had a long downtime when he arrested. Patient is known to have history of severe LV dysfunction ejection fraction is 20-25%, and he was not wearing his LifeVest at the time of his cardiac arrest. Reevaluated today on 07/28/20, patient remains in the ICU, intubated and mechanically ventilated. He is on assist control rate of 16 tidal volume is 450 FiO2 is 40% PEEP of 5. Patient had an ABG showed a pO2 of 98 pCO2 of 33 pH of 7.44. Remains on propofol at 40 mcg/kg/m amiodarone at 1 mg/m patient remains on enteral feeding, vital hp bolus feedings. Patient spiked a fever earlier th is morning temp is 101.2, hence I have recommended starting the patient empirically on Zosyn and starting the patient on Tylenol when necessary. His chest x-ray showed minimal bibasilar atelectasis or early infiltrates, patient was a great set up for aspiration pneumonia. Hence I will treat as such. WBC count today is 11.9 hemoglobin is 10.8. Electrolytes are normal. BUN is 23 creatinine is 1.39. EEG was suggestive of hypoxic anoxic encephalopathy however it was felt that the EEG showed preserved background pertaining to relatively good prognosis. Clinically the patient has been placed on sedation interruption, and he gets extremely agitated, restless, he was able to squeeze one hand only. Otherwise could not get a better assessment of mental status may eventually consider tomorrow placing the patient on Precedex instead of propofol and try to assess mental status exam on Precedex Patient was reevaluated today on 07/29/20, remains in the ICU, intubated and mechanically ventilated. Patient is on assist control rate of 16 tidal volume is 450 FiO2 is 40% PEEP of 5. Patient had low-grade temp last night, he is already on Zosyn, cultures are negative so far. ABG showed a pO2 of 88 pCO2 of 34 pH of 7.42, hence no change was made in the ventilator settings. A shunt remains on propofol at 40 mcg/kg/m, and he is on amiodarone at 1 mg/m. I will switch the patient today to Precedex, and I would assess the mental status, and if tolerated and if the mental status seems appropriate, may continue Precedex, otherwise I will switch him back to propofol. Patient was briefly off propofol, and according to the nurse he was arousable, agitated, and for the first time he was actually comprehending and following simple instructions. But because of his agitation I could not pursue this further and place the patient pressure support and CPAP, although that something to be addressed next. My biggest concern on this patient was anoxic brain injury, seems to be mild, and the p atient is possibly ready to be weaned and extubated in the next 24 hours. May have to use Precedex instead of propofol in the weaning process. Chest x-ray showed minimal basilar atelectasis especially at the left base. On 07/30/2020 patient seen in follow-up in the intensive care unit. He is cur rently awake and alert, he remains on small dose of Precedex is 0.3 mics per kilo per minute, and 0.9 normal saline at a rate of 20 ML per hour, he is much more ill, non-agitated, he is following commands, he is showing me thumbs up with both hands, he is wiggling toes on command, very cooperative. He remains on assist control mode of ventilation with a rate of 16, tidal lungs were 50, FiO2 40% and PEEP of 5, this morning's blood gases show pO2 of 83, pCO2 36, and pH of 7.41. Chest x-ray has been reviewed showing no change in bibasilar opacities. Hemodynamically patient has remained stable. Remains on Zosyn for empiric antibiotic coverage. Did have a low-grade fever last night at midnight with a temp of 100.1F. Blood and sputum cultures show no growth. These labs have been reviewed, showing white blood cell count of 11, hemoglobin of 10.4, sodium of 139, potassium 3.7, chloride is 110, CO2 is 24, B1 is 26 and creatinine 1.03. Patient was given per support trial with the pressure support of 5, and CPAP of 5, and his weaning parameters showed tidal volume of 525, vital capacity of 1.4 L, RSBI of 28, NIF negative is -25, and minute ventilation of 12.14 L/m. On 07/31/2020 patient seen in follow-up in the intensive care unit, patient was successfully weaned and extubated yesterday, this morning he is on 4 L of oxygen with a pulse ox of 95%, hemodynamically she stable, vasoactive drips, he is currently on 0.9 with hematocrit of 20 ML per hour, he is in sinus mechanism, hemodynamically has been stable, he has had no fever or chills last 24 hours. Today's chest that has been reviewed showing possible left lower lobe atelectasis versus pneumonia and associated effusion. Today's labs have been reviewed, showing white blood cell count of 11.1, hemoglobin of 10.9, and renal profile are unremarkable. His blood and sputum cultures have been negative, remains on oral amiodarone, remains in sinus mechanism with a controlled rate, he is on Zosyn for empiric antibiotic coverage for possibility of aspiration pneumonia, he is on breathing treatments, this morning patient is awake and alert, however he is very suspicious, he wants to be transferred to the [facility] where he had his bypass surgery recently, he doesn't believe me that he is in fact at the [facility] where he had his surgery. He wants to talk to his , he wants to be urgently transferred out of here. Appears to be delirious, slightly anxious, but appears to be in no acute distress. His slight agitation seems to be escalating since this morning according to nurses. We will add when necessary doses of Haldol, we'll ask neurology to reevaluate the patient. We discontinued his narcotics. Vital signs are stable. On 08/01/2020 patient seen in follow-up in the intensive care unit, he is calm and comfortable, less agitated on today's exam, she is quite cooperative, he is on 3 L of oxygen his pulse ox 94-95%, his been afebrile, hemodynamically stable, he still confused, but he is oriented 2, hemoglobin the person and the place, she It was the , but he thought he was in June. Denies any difficulty breathing, today's exam reveals bilateral lower lobe crackles. Patient states he does not like the incentive spirometer, and she wants his to bring one from home for him. Dynamically has been stable, he has IV 0.9 normal saline at a rate of 20 ML per hour, he is tolerating oral diet although his appetite is poor. Nuys any chest pain, today's labs have been reviewed, showing limits AT 10.6, HEMOGLOBIN OF 10.3, electrolytes and renal profile were unremarkable. Pro-calcitonin level came back at 0.43, fever last 24 hours. His blood and sputum cultures have been negative On 08/02/2020 patient seen in follow-up in the intensive care unit. Patient remains on 2 L of oxygen, his pulse ox is 93%, his breathing is nonlabored, lung sounds reveal some minor crackles at the bilateral bases, no rhonchi or wheezing, no complaints of chest pain, no shortness of breath no cough or congestion, but a signs have been stable overnight, patient is awake, alert and oriented 3, his delirium screen using the [facility] was negative on today's evaluation. He is breathing comfortably, he is in sinus mechanism, he's had no acute events overnight, he is an overflow for 3 south monitored bed, he has been minimal seen at a rate of 10 ML per hour. No arrhythmias overnight, no new chest x-rays today, labs have been reviewed. Blood and sputum cultures are negative. He is on empiric antibiotics, his had no febrile chills Objective - Vital Signs Vital signs: Vital Signs Temp 98.3 F 08/02/20 08:00 Pulse 77 08/02/20 08:05 Resp 18 08/02/20 08:00 BP 140/65 08/02/20 08:00 Pulse Ox 98 08/02/20 08:00 Intake & Output 08/01/20 08/02/20 08/02/20 18:59 06:59 18:59 Intake Total 440 320 120 Output Total 670 850 155 Balance -230 -530 -35 Intake: IV 440 220 120 Piperacillin-Tazobactam 3 200 100 100 .375 gm In Sodium Chloride 0.9% 100 ml @ 25 mls/hr IVPB Q8HR [facility] Rx# :[id number] Sodium Chloride 0.9% 1, 240 120 20 000 ml @ 50 mls/hr IV . Q20H [facility] Rx#:[id number] Oral 100 Output: Urine 670 850 155 Other: Voiding Method Indwelling Catheter Indwelling Catheter ABP, PAP, CO, CI - Last Documented Arterial Blood Pressure 151/53 - Exam GENERAL EXAM: Alert, pleasant, oriented 3, 65-year-old white male, 2 liters of oxygen with pulse ox of 98% comfortable in no apparent distress. HEAD: Normocephalic/atraumatic. EYES: Normal reaction of pupils, equal size. Conjunctiva pink, sclera white. NOSE: Clear with pink turbinates. THROAT: No erythema or exudates. NECK: No masses, no JVD, no thyroid enlargement, no adenopathy. CHEST: No chest wall deformity. Symmetrical expansion. LUNGS: Equal air entry with minimal basilar crackles, but no wheeze, rhonchi or dullness. CVS: Regular rate and rhythm, normal S1 and S2, no gallops, no murmurs, no rubs ABDOMEN: Soft, nontender. No hepatosplenomegaly, normal bowel sounds, no guarding or rigidity. EXTREMITIES: No clubbing, mild nonpitting edema in bilateral hands, no cyanosis, 2+ pulses and upper and lower extremities. MUSCULOSKELETAL: Muscle strength and tone normal. SPINE: No scoliosis or deformity SKIN: No rashes CENTRAL NERVOUS SYSTEM: Alert and oriented -3. No focal deficits, tone is normal in all 4 extremities. PSYCHIATRIC: Alert and oriented -2. Appropriate affect. Intact judgment and insight. - Labs CBC & Chem 7: 08/02/20 04:24 08/02/20 04:24 Labs: Abnormal Lab Results - Last 24 Hours (Table) 08/02/20 08/02/20 Range/Units 04:24 04:24 RBC 3.68 L (4.30-5.90) m/uL Hgb 11.0 L (13.0-17.5) gm/dL Hct 33.9 L (39.0-53.0) % Chloride 111 H (98-107) mmol/L BUN 21 H (9-20) mg/dL Microbiology - Last 24 Hours (Table) 07/27/20 00:15 Blood Culture - Final Blood No Growth after 144 hours Assessment and Plan Plan: Assessment: #1. Acute hypoxic respiratory failure secondary to cardiopulmonary arrest. Patient had ventricular fibrillation secondary to severe cardiomyopathy and LV dysfunction, was resuscitated, required defibrillation 4, CPR, with return of spontaneous circulation. he was successfully weaned and extubated on 07/30/2020 #2. Rule out mild anoxic brain injury secondary to cardiac arrest, however his mental status has improved, patient is awake and alert, following commands on today's exam on 07/30/2020, and was successfully weaned and extubated #3. Severe cardiomyopathy and LV dysfunction, patient was supposed to be wearing his LifeVest at the time of cardiac arrest which he was not wearing at the time #4. Severe ischemic cardiomyopathy #5. Recent history of bypass grafting 4 on 05/24/2020 #6. Paroxysmal atrial fibrillation, currently in sinus mechanism #7. History of left ventricular thrombus #8. Benign essential hypertension #9. Peripheral vessel occlusive disease and previous aortobifemoral bypass in 2004 #10. History of CVA and left hand weakness in March 2020 #11. Possible aspiration pneumonia on Zosyn #12. Acute delirium related to critical illness, aspiration pneumonia, recent history of cardiac arrest, acute hypoxic respiratory failure requiring intubation and mechanical ventilation. He was started on Haldol, and he is improving Plan: Vital signs have been stable, breathing is comfortable, continue weaning FiO2, encourage deep breathing and coughing, follow-up chest x-ray tomorrow, no fever or chills, we will obtain follow-up procalcitonin. Confusion has improved. T safety precautions, patient is stable to go out of intensive care unit to selective care today. I performed a history & physical examination of the patient and discussed their management with my nurse practitioner, Deedee Turcios. I reviewed the nurse practitioner's note and agree with the documented findings and plan of care. Irasema ng sounds are positive for diminished breath sounds. The findings and the impression was discussed with the patient. I attest to the documentation by the nurse practitioner. Time with Patient: Less than 30
[2020-08-02 11:41] VITALS: BMI 26.2
--- NOTE | 2020-08-02 11:50 | P.PN ---
Subjective Progress Note Date: 08/02/20 Patient is doing well today. He is up in the chair. He does not have any complaints. No acute events overnight Objective - Vital Signs Vital signs: Vital Signs Temp 98.3 F 08/02/20 08:00 Pulse 70 08/02/20 10:00 Resp 20 08/02/20 10:00 BP 150/72 08/02/20 09:00 Pulse Ox 93 L 08/02/20 10:00 Intake & Output 08/01/20 08/02/20 08/02/20 18:59 06:59 18:59 Intake Total 440 320 120 Output Total 670 850 155 Balance -230 -530 -35 Weight 83 kg 83 kg Intake: IV 440 220 120 Piperacillin-Tazobactam 3 200 100 100 .375 gm In Sodium Chloride 0.9% 100 ml @ 25 mls/hr IVPB Q8HR [facility] Rx# :[id number] Sodium Chloride 0.9% 1, 240 120 20 000 ml @ 50 mls/hr IV . Q20H [facility] Rx#:[id number] Oral 100 Output: Urine 670 850 155 Other: Voiding Method Indwelling Catheter Indwelling Catheter Indwelling Catheter ABP, PAP, CO, CI - Last Documented Arterial Blood Pressure 151/53 - Exam General: The patient is awake and alert, in no distress Eye: there is normal conjunctiva bilaterally. Neck: The neck is supple, there is no JVD. Cardiovascular: Normal S1-S2, no S3-S4, no murmurs. Respiratory: Lungs clear to auscultation bilaterally Gastrointestinal: Abdomen is soft, nontender Musculoskeletal: There is no pedal edema. Neurological:. Speech is normal. Skin: Skin is warm and dry - Labs CBC & Chem 7: 08/02/20 04:24 08/02/20 04:24 Labs: Abnormal Lab Results - Last 24 Hours (Table) 08/02/20 08/02/20 Range/Units 04:24 04:24 RBC 3.68 L (4.30-5.90) m/uL Hgb 11.0 L (13.0-17.5) gm/dL Hct 33.9 L (39.0-53.0) % Chloride 111 H (98-107) mmol/L BUN 21 H (9-20) mg/dL Microbiology - Last 24 Hours (Table) 07/27/20 00:15 Blood Culture - Final Blood No Growth after 144 hours Assessment and Plan Assessment: This is a 65-year-old patient of Dr. Rosalino Mcallister. Patient has a complex past medical history noted below. He presented to the emergency room after he was found unresponsive by his who started CPR and called 911. After receiving multiple doses of epinephrine and DC shock they were able to have a return of spontaneous circulation. Patient was intubated in the ER and admitted to the ICU. He was treated aggressively in the ICU for his medical problems noted below. -VF cardiac arrest in a patient with known triple-vessel coronary artery disease. -Coronary artery clhuwnl-nrkyhv-ihoert status post bypass surgery in May 2020 -Chronic congestive heart failure from systolic dysfunction EF 20-25% -Ischemic myopathy, with a LifeVest at home. Patient will eventually need to repeat left heart catheterization and possible ICD per Cardiology -Essential hypertension, blood pressure within acceptable range -Hyperlipidemia -Acute hypoxic respiratory failure requiring ventilator support extubated successfully on 07/30. Currently on 2 L of oxygen Plan: Discontinue Clmeens catheter and check post void residual Continue DuoNeb, amlodipine, aspirin, Lipitor, Plavix, Lopressor. DVT prophylaxis with subcu heparin, GI prophylaxis with IV Protonix Repeat lab work in the morning PT/OT evaluation Subacute rehab placement most likely on Thursday pending social work and clearance from other consultants
--- NOTE | 2020-08-02 12:34 | P.PN ---
Subjective Progress Note Date: 08/02/20 She was seen at bedside and the per the patient's nurse she stated that he's doing well and he is alert oriented 3. She denied any further agitation. Patient was sitting the in the chair at the side of the bed and he stated he is doing well and he was interactive. He denied of any focal weakness, numbness, headache, visual disturbance. Objective - Vital Signs Vital signs: Vital Signs Temp 98.3 F 08/02/20 08:00 Pulse 68 08/02/20 11:58 Resp 20 08/02/20 10:00 BP 150/72 08/02/20 09:00 Pulse Ox 93 L 08/02/20 10:00 Intake & Output 08/01/20 08/02/20 08/02/20 18:59 06:59 18:59 Intake Total 440 320 120 Output Total 670 850 155 Balance -230 -530 -35 Weight 83 kg 83 kg Intake: IV 440 220 120 Piperacillin-Tazobactam 3 200 100 100 .375 gm In Sodium Chloride 0.9% 100 ml @ 25 mls/hr IVPB Q8HR [facility] Rx# :[id number] Sodium Chloride 0.9% 1, 240 120 20 000 ml @ 50 mls/hr IV . Q20H [facility] Rx#:[id number] Oral 100 Output: Urine 670 850 155 Other: Voiding Method Indwelling Catheter Indwelling Catheter Indwelling Catheter ABP, PAP, CO, CI - Last Documented Arterial Blood Pressure 151/53 - Exam GENERAL: The patient is lying in bed and is not in acute distress. NEUROLOGICAL: Higher mental function: The patient is awake, alert, oriented to self, place and time. Patient is following simple commands. No aphasia and no neglect. Cranial nerves: The pupils are round, equal and reactive to light . Visual locke are full to confrontation throughout. Extraocular movement is intact no nystagmus is noted. The facial strength is normal throughout. No dysarthria. Motor: Gait is deferred. The strength is left hand is 5-/5. Otherwise 5/5 throughout. Normal tone and bulk. Sensation: Unable to assess because of his cooperation. Reflexes (right/left): 2+ throughout. Plantars are downgoing bilaterally. - Labs CBC & Chem 7: 08/02/20 04:24 08/02/20 04:24 Labs: Abnormal Lab Results - Last 24 Hours (Table) 08/02/20 08/02/20 Range/Units 04:24 04:24 RBC 3.68 L (4.30-5.90) m/uL Hgb 11.0 L (13.0-17.5) gm/dL Hct 33.9 L (39.0-53.0) % Chloride 111 H (98-107) mmol/L BUN 21 H (9-20) mg/dL Microbiology - Last 24 Hours (Table) 07/27/20 00:15 Blood Culture - Final Blood No Growth after 144 hours Assessment and Plan Assessment: * Delerium---ICU stay and aspiration pneumonia---improved * Status post witnessed Cardiac arrest at home. * Acute hypoxic respiratory failure secondary to cardiopulmonary arrest. * Possible aspiration pneumonia on Zosyn * Severe cardiomyopathy and left ventricular dysfunction. * History of ischemic CVA with left hand weakness 03/29/2020. * Paroxysmal atrial fibrillation. * History of left-ventricular thrombus. * Hypertension * History of tobacco use * Hyperlipidemia Plan: * EEG was performed (07/27/2020), which wis reported as revealed abnormal sleep EEG because of intermittent generalized suppressed activity for 1-2 seconds. This can be seen with hypoxic anoxic encephalopathies. However fairly well preserved background was also seen during most of the study pertaining to relatively good prognosis. Clinical correlation recommended. No epileptiform activity was seen. * Is on melatonin 5 mg daily at bedtime which started by the primary team. * Regarding assessment of the patient cognitive impact from the cardiac arrest, I recommend the patient get a neuropsych evaluation upon discharge. * Medical management as per cardiology/IM/critical care. Plan was discussed with the patient's nurse. We'll follow up with the patient sporadically. Mau Curtis M.D. Neuro-hospitalist Time with Patient: Less than 30
[2020-08-03] MEDS: PANTOPRAZOLE 40 MG TABLET PO SCH (06:39)
[2020-08-03] MEDS: IPRATROPIUM-ALBUTEROL 3 ML NEB INHALATION SCH ×4 (07:51→20:01)
[2020-08-03] MEDS: PIPERACILLIN-TAZOBACTAM 3.375 GM in SODIUM CHLORIDE 0.9% 100 ML IVPB SCH ×3 (07:57→23:53)
[2020-08-03] MEDS: amLODIPine 10 MG TAB PO SCH (08:01)
[2020-08-03] MEDS: METOPROLOL TARTRATE 50 MG TAB PO SCH ×2 (08:01→21:40)
[2020-08-03] MEDS: CLOPIDOGREL 75 MG TAB PO SCH (08:01)
[2020-08-03] MEDS: ASPIRIN 81 MG PO SCH (08:01)
[2020-08-03] MEDS: ATORVASTATIN 40 MG TAB PO SCH (08:01)
[2020-08-03] MEDS: HEPARIN SODIUM,PORCINE 5,000 UNIT/ML 1 ML VIAL SQ SCH ×2 (08:01→21:40)
[2020-08-03] MEDS: AMIODARONE 200 MG TAB PO SCH ×3 (08:01→21:39)
[2020-08-03] MEDS: lisinopriL 20 MG TAB PO SCH (08:01)
--- NOTE | 2020-08-03 08:31 | XR ---
EXAM: XR Chest, 1 View CLINICAL HISTORY: ITS.REASON XR Reason: shortness of breath TECHNIQUE: Frontal view of the chest. COMPARISON: Chest x-ray dated 07/25/20 FINDINGS: Lungs: Bibasilar atelectasis. Overall slight improvement in aeration in the right lower lung. Pleural space: Unremarkable. No pneumothorax. Heart: Heart size appears enlarged. Mediastinum: Unremarkable. Bones/joints: Sternotomy wires. IMPRESSION: 1. Bibasilar atelectasis. Overall slight improvement in aeration in the right lower lung. 2. Heart size appears enlarged.
[2020-08-03 08:34] LABS: Basophils # (A) 0.1 k/uL (0-0.2); Basophils % (A) 1 %; Eosinophils # (A) 0.2 k/uL (0-0.7); Eosinophils % (A) 3 %; HCT 34.5 % (39.0-53.0); HGB 11.4 gm/dL (13.0-17.5); Lymphocytes # (A) 1.4 k/uL (1.0-4.8); Lymphocytes % (A) 14 %; MCH 30.8 pg (25.0-35.0); MCHC 32.9 g/dL (31.0-37.0); MCV 93.4 fL (80.0-100.0); Mean Platelet Volume 7.8; Monocytes # (A) 0.6 k/uL (0-1.0); Monocytes % (A) 6 %; Neutrophils # (A) 7.3 k/uL (1.3-7.7); Neutrophils % (A) 75 %; Platelet Count 181 k/uL (150-450); RDW 13.9 % (11.5-15.5); WBC 9.7 k/uL (3.8-10.6)
[2020-08-03 08:43] LABS: African American GFR (CKD) >90 (>60 ml/min/1.73 sqM); Anion Gap 9 mmol/L; Blood Urea Nitrogen 24 mg/dL (9-20); Calcium 8.8 mg/dL (8.4-10.2); Carbon Dioxide 21 mmol/L (22-30); Chloride 111 mmol/L (98-107); Glucose 87 mg/dL (74-99); Non-African American GFR(CKD) 84 (>60 ml/min/1.73 sqM); Potassium 3.9 mmol/L (3.5-5.1); Sodium 141 mmol/L (137-145)
--- NOTE | 2020-08-03 11:32 | P.PN ---
Subjective Progress Note Date: 08/03/20 Patient is doing well today. He does not have any complaints. No acute events overnight Objective - Vital Signs Vital signs: Vital Signs Temp 98.5 F 08/03/20 07:53 Pulse 76 08/03/20 11:20 Resp 18 08/03/20 08:00 BP 150/87 08/03/20 07:53 Pulse Ox 98 08/03/20 07:53 Intake & Output 08/02/20 08/03/20 08/03/20 18:59 06:59 18:59 Intake Total 220 Output Total 280 425 Balance -60 -425 Weight 83 kg 79.7 kg Intake: IV 220 Piperacillin-Tazobactam 3 100 .375 gm In Sodium Chloride 0.9% 100 ml @ 25 mls/hr IVPB Q8HR [facility] Rx# :[id number] Sodium Chloride 0.9% 1, 120 000 ml @ 50 mls/hr IV . Q20H [facility] Rx#:[id number] Output: Urine 280 425 Other: Voiding Method Indwelling Catheter Urinal Urinal # Voids 0 ABP, PAP, CO, CI - Last Documented Arterial Blood Pressure 151/53 - Exam General: The patient is awake and alert, in no distress Eye: there is normal conjunctiva bilaterally. Neck: The neck is supple, there is no JVD. Cardiovascular: Normal S1-S2, no S3-S4, no murmurs. Respiratory: Lungs clear to auscultation bilaterally Gastrointestinal: Abdomen is soft, nontender Musculoskeletal: There is no pedal edema. Neurological:. Speech is normal. Skin: Skin is warm and dry - Labs CBC & Chem 7: 08/03/20 08:15 08/03/20 08:15 Labs: Abnormal Lab Results - Last 24 Hours (Table) 08/02/20 08/03/20 08/03/20 Range/Units 04:24 08:15 08:15 RBC 3.70 L (4.30-5.90) m/uL Hgb 11.4 L (13.0-17.5) gm/dL Hct 34.5 L (39.0-53.0) % Chloride 111 H (98-107) mmol/L Carbon Dioxide 21 L (22-30) mmol/L BUN 24 H (9-20) mg/dL Procalcitonin 0.27 H (0.02-0.09) ng/mL Assessment and Plan Assessment: This is a 65-year-old patient of Dr. Rosalino Mcallister. Patient has a complex past medical history noted below. He presented to the emergency room after he was found unresponsive by his who started CPR and called 911. After receiving multiple doses of epinephrine and DC shock they were able to have a return of spontaneous circulation. Patient was intubated in the ER and admitted to the ICU. He was treated aggressively in the ICU for his medical problems noted below. -VF cardiac arrest in a patient with known triple-vessel coronary artery disease. -Coronary artery [id number] status post bypass surgery in May 2020 -Chronic congestive heart failure from systolic dysfunction EF 20-25% -Ischemic myopathy, with a LifeVest at home. Patient will eventually need a repeat left heart catheterization and possible ICD per Cardiology -Essential hypertension, blood pressure within acceptable range -Hyperlipidemia -Acute hypoxic respiratory failure requiring ventilator support extubated successfully on 07/30. Currently on 2 L of oxygen Plan: Discontinue Clemens catheter and check post void residual Continue DuoNeb, amlodipine, aspirin, Lipitor, Plavix, Lopressor. DVT prophylaxis with subcu heparin, GI prophylaxis with Protonix Repeat lab work in the morning PT/OT evaluation Subacute rehab placement most likely on Thursday pending social work to find a placement and clearance from other consultants
--- NOTE | 2020-08-03 11:33 | P.PN ---
Subjective Progress Note Date: 08/03/20 HISTORY OF PRESENT ILLNESS: Patient examined this morning at the bedside. He has been transferred out of the intensive care unit to the cardiac stepdown unit. Patients mentation continues to improve daily. He denies chest pain or pressure. He denies shortness of breath. He complains of a "nagging" cough. Chest x-ray this morning reveals bibasilar atelectasis. Overall slight improvement in aeration in the right lower lung. PHYSICAL EXAM: VITAL SIGNS: Reviewed. GENERAL: Well-developed in no acute distress. NECK: Supple. No JVD or thyromegaly LUNGS: Respirations even and unlabored. Lungs diminished bilaterally. HEART: Regular rate and rhythm. S1 and S2 heard. EXTREMITIES: Normal range of motion. No clubbing or cyanosis. Peripheral pulses intact. No lower extremity edema ASSESSMENT: Cardiac arrest, ventricular fibrillation Acute hypoxic respiratory failure Coronary artery disease with previous CABG 4 in May 2020 Ischemic cardiomyopathy, ejection fraction 25-30% Medical noncompliance, patient not wearing life vest at hime of cardiac arrest Paroxysmal atrial fibrillation, currently maintaining sinus rhythm History of left ventricular thrombus Hypertension History of CVA PLAN: Continue current cardiac medications Patient will require AICD prior to discharge due to his cardiomyopathy. Dr. King discussed this with Dr. Noble. Dr. Noble will place AICD prior to discharge. Exact date to be determined. Further recommendations pending patient course Nurse practitioner note has been reviewed by physician. Signing provider agrees with the documented findings, assessment, and plan of care. Objective - Vital Signs Vital signs: Vital Signs Temp 98.5 F 08/03/20 07:53 Pulse 76 08/03/20 11:20 Resp 18 08/03/20 08:00 BP 150/87 08/03/20 07:53 Pulse Ox 98 08/03/20 07:53 Intake & Output 08/02/20 08/03/20 08/03/20 18:59 06:59 18:59 Intake Total 220 Output Total 280 425 Balance -60 -425 Weight 83 kg 79.7 kg Intake: IV 220 Piperacillin-Tazobactam 3 100 .375 gm In Sodium Chloride 0.9% 100 ml @ 25 mls/hr IVPB Q8HR [facility] Rx# :[id number] Sodium Chloride 0.9% 1, 120 000 ml @ 50 mls/hr IV . Q20H [facility] Rx#:[id number] Output: Urine 280 425 Other: Voiding Method Indwelling Catheter Urinal Urinal # Voids 0 ABP, PAP, CO, CI - Last Documented Arterial Blood Pressure 151/53 - Labs CBC & Chem 7: 08/03/20 08:15 08/03/20 08:15 Labs: Abnormal Lab Results - Last 24 Hours (Table) 08/02/20 08/03/20 08/03/20 Range/Units 04:24 08:15 08:15 RBC 3.70 L (4.30-5.90) m/uL Hgb 11.4 L (13.0-17.5) gm/dL Hct 34.5 L (39.0-53.0) % Chloride 111 H (98-107) mmol/L Carbon Dioxide 21 L (22-30) mmol/L BUN 24 H (9-20) mg/dL Procalcitonin 0.27 H (0.02-0.09) ng/mL
--- NOTE | 2020-08-03 13:53 | PN ---
PROGRESS NOTE PULMONARY/CRITICAL CARE PROGRESS NOTE: DATE OF SERVICE: 08/03/2020 This is a patient who was in the intensive care unit yesterday. The patient remains on O2 at 2 L. He is doing reasonably well. Saturations are in the low to mid 90s. The patient is awake and alert. He seems to be doing a lot better. Currently, the patient is resting in bed. He has no major complaints. PHYSICAL EXAMINATION: VITAL SIGNS: Current vital signs reviewed. Temperature 98.1, heart rate 64, respiratory rate 18, blood pressure 149/66 mean 93, 2 L saturation 98%. He appears in no acute distress. No respiratory distress. HEENT: Examination is grossly unremarkable. Nasal O2 noted. NECK: Supple. Full range of motion. No adenopathy. Neck veins are flat. CARDIOVASCULAR: Examination reveals regular rhythm rate. S1, S2 normal. There is no murmur. LUNGS: A few scattered crackles. No wheezes. No rhonchi. Breath sounds equal. ABDOMEN: Soft. Bowel sounds are heard. EXTREMITIES are intact. There is some mild edema. No cyanosis or clubbing. SKIN: Without rash. NEUROLOGIC: Examination is brief but nonfocal. LAB DATA: Reviewed. White count 9.7, hemoglobin 11.4, hematocrit 34.5, platelet count 181,000. Sodium 141, potassium 3.9, chloride 111, CO2 21, anion gap 9. BUN and creatinine were 24 and 0.95. A chest x-ray from the shows bibasilar atelectasis. There is improved aeration in the right lower lobe. There is cardiomegaly. CURRENT MEDICATIONS: Reviewed. He is on Tylenol, Cordarone, amlodipine, Artificial Tears, aspirin, Lipitor, Ancef, Plavix, subcu heparin, DuoNeb, lisinopril, melatonin, metoprolol, Narcan, Protonix, Zosyn, potassium replacement, and saline IV at 20 mL an hour. ASSESSMENT: 1. Acute hypoxemic respiratory failure secondary to cardiopulmonary arrest with evidence of ventricular fibrillation, status post defibrillation x4, CPR, and eventual return of spontaneous circulation. The patient was weaned and extubated on July 30. 2. Possible mild anoxic brain injury secondary to cardiac arrest. 3. Severe cardiomyopathy and LV dysfunction in a patient who is with supposed to be wearing his LifeVest at the time of his cardiac arrest. 4. Severe ischemic cardiomyopathy. 5. Recent history of bypass grafting x4, May 24, 2020. 6. Paroxysmal atrial fibrillation. 7. History of left ventricular thrombus. 8. Benign essential hypertension. 9. Peripheral vessel occlusive disease and previous aortobifem bypass 2004. 10.History of cerebrovascular accident and left hand weakness in March 2020. 11.Aspiration pneumonia. 12.Acute delirium, improved. PLAN: Currently, the patient is doing much better. We will continue to encourage deep breathing, coughing, clearing of secretions. Chest x-ray is improved. We will also recommend continue use of the incentive spirometer every one hour. We will probably DC the antibiotics in a day or so. No additional recommendations are made. Prognosis is guarded. MMODL / IJN: [id number] /
[2020-08-03] MEDS: SODIUM CHLORIDE 0.9% 1,000 ML IV SCH ×2 (15:21→15:22)
[2020-08-03] MEDS: MELATONIN 5 MG TABLET PO SCH (21:40)
[2020-08-04] MEDS ORDERED: ceFAZolin 1 GM in SODIUM CHLORIDE 0.9% 250 ML IRRIGATION PRN (07:00)
[2020-08-04] MEDS: PANTOPRAZOLE 40 MG TABLET PO SCH (07:04)
[2020-08-04] MEDS: AMIODARONE 200 MG TAB PO SCH ×2 (07:04→20:30)
[2020-08-04] MEDS: ASPIRIN 81 MG PO SCH (07:04)
[2020-08-04] MEDS: PIPERACILLIN-TAZOBACTAM 3.375 GM in SODIUM CHLORIDE 0.9% 100 ML IVPB SCH (07:04)
[2020-08-04] MEDS: METOPROLOL TARTRATE 50 MG TAB PO SCH (07:04)
[2020-08-04] MEDS: lisinopriL 20 MG TAB PO SCH (07:05)
[2020-08-04] MEDS: ATORVASTATIN 40 MG TAB PO SCH (07:05)
[2020-08-04] MEDS: amLODIPine 10 MG TAB PO SCH (07:05)
[2020-08-04] MEDS: HEPARIN SODIUM,PORCINE 5,000 UNIT/ML 1 ML VIAL SQ SCH ×2 (07:05→20:30)
[2020-08-04] MEDS: CLOPIDOGREL 75 MG TAB PO SCH (07:05)
[2020-08-04] MEDS: IPRATROPIUM-ALBUTEROL 3 ML NEB INHALATION SCH (07:53)
[2020-08-04] MEDS ORDERED: SODIUM CHLORIDE 0.9% 1,000 ML IV ONE (12:30)
[2020-08-04] MEDS ORDERED: IV FLUID CONTINUATION 1,000 ML IV ONE (12:30)
--- NOTE | 2020-08-04 12:30 | P.PN ---
Subjective Progress Note Date: 08/04/20 HISTORY OF PRESENT ILLNESS: Patient examined this morning at the bedside. He denies chest pain or pressure. He denies shortness of breath. He continues to report a nonproductive cough. Blood pressure 157/70. Heart rate in the 60s. PHYSICAL EXAM: VITAL SIGNS: Reviewed. GENERAL: Well-developed in no acute distress. NECK: Supple. No JVD or thyromegaly LUNGS: Respirations even and unlabored. Lungs diminished bilaterally. HEART: Regular rate and rhythm. S1 and S2 heard. EXTREMITIES: Normal range of motion. No clubbing or cyanosis. Peripheral pulses intact. No lower extremity edema ASSESSMENT: Cardiac arrest, ventricular fibrillation Acute hypoxic respiratory failure Coronary artery disease with previous CABG 4 in May 2020 Ischemic cardiomyopathy, ejection fraction 25-30% Medical noncompliance, patient not wearing life vest at hime of cardiac arrest Paroxysmal atrial fibrillation, currently maintaining sinus rhythm History of left ventricular thrombus Hypertension History of CVA PLAN: Continue current cardiac medications Patient to undergo AICD placement today with Dr. Noble Further recommendations pending patient course Nurse practitioner note has been reviewed by physician. Signing provider agrees with the documented findings, assessment, and plan of care. Objective - Vital Signs Vital signs: Vital Signs Temp 97.9 F 08/04/20 07:19 Pulse 71 08/04/20 08:07 Resp 16 08/04/20 07:19 BP 157/70 08/04/20 07:19 Pulse Ox 94 L 08/04/20 07:54 Intake & Output 08/03/20 08/04/20 08/04/20 18:59 06:59 18:59 Output Total 1 725 400 Balance -1 -725 -400 Weight 78.5 kg Output: Urine 725 400 Stool 1 Other: Voiding Method Urinal Urinal # Voids 2 ABP, PAP, CO, CI - Last Documented Arterial Blood Pressure 151/53 - Labs CBC & Chem 7: 08/03/20 08:15 08/03/20 08:15
[2020-08-04] MEDS ORDERED: IOPAMIDOL-370 50ML BTL INJ ONE (12:36)
--- NOTE | 2020-08-04 12:44 | ECHOF ---
Referral Reason:per physician order MEASUREMENTS -------- HEIGHT: 177.8 cm WEIGHT: 79.4 kg BP: 157/70 IVSd: 1.3 cm (0.6 - 1.1) LVIDd: 6.0 cm (3.9 - 5.3) LVPWd: 1.0 cm (0.6 - 1.1) IVSs: 1.5 cm LVIDs: 5.1 cm LVPWs: 1.1 cm FINDINGS -------- Sinus rhythm. This was a technically adequate study. Limited Study The left ventricle is moderately dilated. There is mild concentric left ventricular hypertrophy. There is moderate global hypokinesis of LV . Overall left ventricular systolic function is severely impaired with, an EF between 25 - 30 %. Septal wall motion is delayed and consistent with prior ca rdiac surgery. CONCLUSIONS -------- 1. The left ventricle is moderately dilated. 2. There is mild concentric left ventricular hypertrophy. 3. There is moderate global hypokinesis of LV . 4. Overall left ventricular systolic function is severely impaired with, an EF between 25 - 30 %. 5. Septal wall motion is delayed and consistent with prior cardiac surgery. STATISTICIAN MATHEMATICAL: Maude Servin, [facility]
[2020-08-04] MEDS ORDERED: LIDOCAINE 1% INJ 10MG/ML (20 ML MDV) ONE ×2 (12:45→13:32)
--- NOTE | 2020-08-04 12:47 | PN ---
PROGRESS NOTE PULMONARY/CRITICAL CARE PROGRESS NOTE: DATE OF SERVICE: August 04, 2020. INTERVAL HISTORY: This is a patient who was in the ICU up until a couple days ago. Currently, the patient is doing better. He is on O2 at 2 L. His saturations are in the mid to high 90s. He is awake and alert. The patient denies any shortness of breath, chest tightness, cough, wheezing, phlegm production, chest pain or pressure, palpitations, fever, chills, nausea, vomiting, diarrhea, abdominal pain, or genitourinary complaints. PHYSICAL EXAMINATION: VITAL SIGNS: Current vital signs are reviewed. Temperature is 97.9, heart rate 71, respiratory rate is 16, blood pressure 157/70, actual room air saturations are 97%. Appears in no acute distress. Awake and alert. HEENT: Examination is grossly unremarkable. NECK: Supple. Full range of motion. No adenopathy. Neck veins are flat. CARDIOVASCULAR: Examination reveals regular rhythm and rate. Heart sounds are distant. S1, S2 normal. No murmur. LUNGS: Relatively clear. No wheezes, rhonchi, or significant crackles. ABDOMEN: Soft. Bowel sounds are heard. EXTREMITIES: Reveal some mild edema. No cyanosis or clubbing. SKIN: Without rash. NEUROLOGIC: Examination is brief but nonfocal. LABS: Reviewed. Nothing new to report. Microbiology is currently all negative. IMAGING: The most recent chest x-ray dated August 03 shows some mild bibasilar atelectasis. Overall, the chest x-ray has improved. MEDICATIONS: Reviewed. Currently, the patient is on Tylenol, amiodarone, Norvasc, Artificial Tears, aspirin, Lipitor, Ancef, Plavix, heparin, DuoNeb, Zestril, melatonin, Lopressor, Narcan, Protonix, Zosyn, and saline IV. ASSESSMENT: 1. Acute hypoxemic respiratory failure secondary to cardiopulmonary arrest, with evidence of ventricular fibrillation, status post defibrillation x4, CPR, with eventual return of spontaneous circulation. The patient was weaned and extubated on July 30. 2. Possible mild anoxic brain injury secondary to cardiac arrest, although patient's neurologic status has improved. 3. Severe cardiomyopathy and LV dysfunction in a patient who was supposed to be wearing his LifeVest at the time of cardiac arrest. 4. Severe ischemic cardiomyopathy. 5. Recent history of bypass grafting, May 2020. 6. Paroxysmal atrial fibrillation. 7. History of left ventricular thrombus. 8. Benign essential hypertension. 9. Peripheral vascular occlusive disease, with previous aortobifemoral bypass 2004. 10.History of cerebrovascular accident and left hand weakness in March 2020. 11.Aspiration pneumonia. 12.Acute delirium, improved. PLAN: The patient's antibiotics will be discontinued. We will discontinue the updrafts. No additional recommendations are made. Prognosis is guarded. We will continue to follow. MMODL / IJN: [id number] /
[2020-08-04] MEDS ORDERED: PROPOFOL 10 MG/ML 20 ML VIAL IV ONE (12:55)
[2020-08-04] MEDS: SODIUM CHLORIDE 0.9% 1,000 ML IV SCH ×2 (12:56)
[2020-08-04] MEDS ORDERED: LIDOCAINE 1% INJ 10MG/ML (20 ML MDV) SQ ONE (13:29)
--- NOTE | 2020-08-04 14:51 | P.EPPROC ---
- EP Procedure Note Electrophysiology Procedure Note: Diagnosis Cardiomyopathy, chronic, ischemic cardio myopathy, VF arrest at home known CAD patient prescribed a LifeVest but not wearing LifeVest Bradycardia, on guideline directed Secondary prevention of sudden cardiac Procedure: Dual-chamber ICD implantation for management of risk of sudden cardiac /bradycardia General Neurologist: Dr. Noble Result: Dual-chamber ICD implantation, Ailyn RODRÍGUEZ serial #[id number] Atrial lead: P waves 1.9 mV, pacing threshold 0.75 V at 0.5 ms pacing impedance of 450 ohms RV ICD lead: Pacing threshold 0.5 V at 0.5 ms, R waves 11.5 mV and pacing impedance 750 ohms High-voltage impedance 55 ohms Atrial lead tendril STS, 2088 TC, 52 cm length ICD lead single coil active fix serial number, [id number] every, 50 cm in length Procedure details: Patient was brought to the EP lab in a fasting state. Written informed consent was obtained prior to the procedure. Options, pros and cons, benefits and risks and complications discussed with patient in detail prior to the procedure (shared decision making). Importance of continuing medical treatment emphasized. Alternatives discussed. Patient would like to proceed with dual-chamber ICD implant. Left upper extremity venogram performed. 15 mL IV dye injected in the left arm. Patent axillary/subclavian vein The left pectoral area was prepped and draped as a protocol. IV antibiotics administered 1% lidocaine was used for local anesthesia. A 4 cm incision was made parallel to the deltopectoral groove, about 1.5 cm medial to it. The incision was carried down to the level of the pectoralis muscle and the subfascial pocket was made. Hemostasis was assured. The axillary vein access was obtained. Appropriately sized into to see sheaths were placed. ICD lead implanted in the right ventricle and screwed in. ICD lead tested for threshold, sensing, impedances and tested with high output pacing for diaphragmatic stimulation Atrial lead placed in the right atrial appendage and tested for threshold, sensing, impedance, and tested with high output pacing. Phrenic nerve stimu lation Lead secured to the underlying transverse muscle after removing sheaths . Pocket irrigated with antibiotic solution Leads connected to the biventricular ICD generator. Wound closed in 3 layers and dressed per protocol Biventricular ICD interrogated and programmed. Appropriate pacing parameters, antitachycardia therapies with antitachycardia pacing cardioversion defibrillations programmed. Patient tolerated the procedure well without any acute complications. See scanned device report in EMR for lead details
--- NOTE | 2020-08-04 14:54 | P.PRLE ---
RE: AkilNarayan Dear Rosalino Mr. Barnard underwent dual-chamber ICD implantation and he presented to the hospital with ventricular fibrillation arrest. He had been prescribed a LifeVe st but he was not wearing it Successful dual-chamber ICD implantation was performed No acute complications His cardiomyopathy medications were maximized Thank you for entrusting me with the care of the patient Warm regards Sincerely John Noble
--- NOTE | 2020-08-04 18:13 | P.PN ---
Subjective Progress Note Date: 08/04/20 (andrey charting seen at 0930) Principal diagnosis: unresponsive Patient is a 65-year-old male with systolic cardiomyopathy , ejection fraction 25-30% and orders for LifeVest, paroxysmal A. fib, hypertension, dyslipidemia, chronic tobacco dependence, and peripheral arterial disease who presented as a CPR in progress. Patient did have [place] subsequently intubated and admitted to the ICU. Chest x-ray revealed moderate congestive heart failure with possible superimposed pneumonia in the right lung. There was some concern for possible aspiration event. CT of the brain showed no acute process, EKG showed sinus rhythm with a right bundle branch block, repeat echocardiogram showed severe global hypokinesis with ejection fraction 20-25%. Coated 19 testing was negative. He was started on normal saline, amiodarone, and propofol. He was also initiated on bronchodilators. Cardiology and critical care were consulted. On 07/27 the attempted sedation holiday and patient became agitated and was not able to follow any commands. He was replaced on propofol. There is concern for anoxic encephalopathy. Neurology was consulted. He underwent an EEG which was suggestive of hypoxic encephalopathy however there was preserved background which would have relatively good prognosis. His sedation was switched to Precedex. He was able to start following commands and was subsequently extubated on 07/30. Chest x-ray on 07/31 showed possible left lower lobe infiltrate and he was started on Zosyn. He was noted to have some delirium. He was seen by neurology on 08/02 they felt he had a relatively good prognosis. They did recommend neuropsych eval on discharge. Patient seen and examined at bedside. He denies any chest pain, shortness breath, nausea, or vomiting. He is still feeling weak. He knows he needs to go to rehab. He is anxious about when he will get his ICD. General: non toxic, no distress, appears at stated age Derm: warm, dry Head: atraumatic, normocephalic, symmetric Eyes: EOMI, no lid lag, anicteric sclera Mouth: no lip lesion, mucus membranes moist Cardiovascular: S1S2 reg, no murmur, positive posterior tibial pulse bilateral, Lungs: CTA bilateral, no rhonchi, no rales , no accessory muscle use Abdominal: soft, nontender to palpation, no guarding, no appreciable organomegaly Ext: no gross muscle atrophy, no edema, no contractures Neuro: CN II-XI grossly intact, no focal neuro deficits Psych: Alert, oriented, appropriate affect V. fib arrest -Status post AICD 08/[address] Corado -Continue with amiodarone -Cardiology recommendations Systolic cardiomyopathy with ejection fraction 25-30% -Clinically compensated -Coreg, lisinopril, follow fluid status closely Coronary artery disease -Aspirin, statin, Plavix, beta mona Paroxysmal atrial fibrillation -Currently maintaining sinus rhythm -Continue with metoprolol, amiodarone -EP evaluation -No plans for anticoagulation at this time Hypertension, BP mildly elevated -Continue with Norvasc, Coreg Dyslipidemia -Continue with statin Anemia -Likely ICU induced -Follow CBC -If continues outpatient evaluation History of left ventricular thrombus History of ischemic CVA with left hand weakness Thrombocytopenia, likely reactive, resolved Aspiration pneumonia, status post treatment Coronary artery disease status post quadruple bypass Aborted sudden cardiac secondary to V. fib arrest Acute hypoxic respiratory failure Acute metabolic encephalopathy, improved DVT prophylaxis: SCDs Discussed with: Nursing, cardio H[employer] B[employer]ER Anticipated discharge: Once approved for [facility] Anticipated discharge place: SNF A total of 35 minutes was spent on the care of this complex patient more than 50% of the time was spent in counseling and care coordination. Objective - Vital Signs Vital signs: Vital Signs Temp 97.9 F 08/04/20 07:19 Pulse 71 08/04/20 08:07 Resp 16 08/04/20 07:19 BP 157/70 08/04/20 07:19 Pulse Ox 94 L 08/04/20 07:54 Intake & Output 08/03/20 08/04/20 08/04/20 18:59 06:59 18:59 Intake Total 250 Output Total 1 725 400 Balance -1 -725 -150 Weight 78.5 kg Intake: IV 250 Output: Urine 725 400 Stool 1 Other: Voiding Method Urinal Urinal # Voids 2 ABP, PAP, CO, CI - Last Documented Arterial Blood Pressure 151/53 - Labs CBC & Chem 7: 08/03/20 08:15 08/03/20 08:15
[2020-08-04] MEDS: carvediloL 12.5 MG TAB PO SCH (18:22)
[2020-08-04] MEDS: SPIRONOLACTONE 25 MG TAB PO SCH (18:22)
[2020-08-04] MEDS: MELATONIN 5 MG TABLET PO SCH (20:29)
[2020-08-04 23:59] VITALS: RESP 16
[2020-08-05] MEDS: PANTOPRAZOLE 40 MG TABLET PO SCH (06:35)
[2020-08-05] MEDS: carvediloL 12.5 MG TAB PO SCH ×2 (06:35→17:28)
[2020-08-05 08:33] LABS: HCT 33.2 % (39.0-53.0); MCH 30.1 pg (25.0-35.0); MCHC 33.1 g/dL (31.0-37.0); MCV 90.8 fL (80.0-100.0); Mean Platelet Volume 8.1; Platelet Count 215 k/uL (150-450); RBC 3.66 m/uL (4.30-5.90); RDW 13.9 % (11.5-15.5); WBC 9.7 k/uL (3.8-10.6)
[2020-08-05 08:49] LABS: African American GFR (CKD) >90 (>60 ml/min/1.73 sqM); Anion Gap 6 mmol/L; Blood Urea Nitrogen 21 mg/dL (9-20); Calcium 8.6 mg/dL (8.4-10.2); Carbon Dioxide 24 mmol/L (22-30); Chloride 108 mmol/L (98-107); Glucose 87 mg/dL (74-99); Magnesium 1.7 mg/dL (1.6-2.3); Non-African American GFR(CKD) 89 (>60 ml/min/1.73 sqM); Potassium 3.7 mmol/L (3.5-5.1); Sodium 138 mmol/L (137-145)
[2020-08-05] MEDS ORDERED: INFLUENZA VACCINE (6 MOS+) 60 MCG/0.5 ML SYRINGE IM ONE (09:18)
[2020-08-05] MEDS: amLODIPine 2.5 MG TAB PO SCH (09:47)
[2020-08-05] MEDS: CLOPIDOGREL 75 MG TAB PO SCH (09:47)
[2020-08-05] MEDS: ASPIRIN 81 MG PO SCH (09:47)
[2020-08-05] MEDS: AMIODARONE 200 MG TAB PO SCH ×2 (09:47→20:38)
[2020-08-05] MEDS: HEPARIN SODIUM,PORCINE 5,000 UNIT/ML 1 ML VIAL SQ SCH ×2 (09:47→20:39)
[2020-08-05] MEDS: SPIRONOLACTONE 25 MG TAB PO SCH (09:47)
[2020-08-05] MEDS: lisinopriL 20 MG TAB PO SCH (09:47)
[2020-08-05] MEDS: ATORVASTATIN 40 MG TAB PO SCH (09:47)
--- NOTE | 2020-08-05 12:44 | P.PN ---
Subjective Progress Note Date: 08/05/20 HISTORY OF PRESENT ILLNESS: Patient is status post dual-chamber ICD implantation with Dr. Noble. POD #1. Patient examined this morning at the bedside. He denies any discomfort to his ICD site. No hematoma noted. He denies chest pain or pressure. He denies shortness of breath. He continues to report a nonproductive cough. Blood pressure 155/60. Heart rate in the 70s. PHYSICAL EXAM: VITAL SIGNS: Reviewed. GENERAL: Well-developed in no acute distress. NECK: Supple. No JVD or thyromegaly LUNGS: Respirations even and unlabored. Lungs diminished bilaterally. HEART: Regular rate and rhythm. S1 and S2 heard. Dressing to left chest clean dry and intact. No hematoma noted. Patient wearing sling to left arm. EXTREMITIES: Normal range of motion. No clubbing or cyanosis. Peripheral pulses intact. No lower extremity edema ASSESSMENT: Cardiac arrest, ventricular fibrillation Acute hypoxic respiratory failure Coronary artery disease with previous CABG 4 in May 2020 Ischemic cardiomyopathy, ejection fraction 25-30%, status post dual-chamber ICD implantation Medical noncompliance, patient not wearing life vest at hime of cardiac arrest Paroxysmal atrial fibrillation, currently maintaining sinus rhythm History of left ventricular thrombus Hypertension History of CVA PLAN: Continue current cardiac medications Continue supportive treatment Anticipate discharge to [facility] tomorrow if patient remains stable Nurse practitioner note has been reviewed by physician. Signing provider agrees with the documented findings, assessment, and plan of care. Objective - Vital Signs Vital signs: Vital Signs Temp 97.8 F 08/05/20 08:00 Pulse 59 L 08/05/20 08:00 Resp 16 08/05/20 03:57 BP 156/72 08/05/20 08:00 Pulse Ox 93 L 08/05/20 08:00 Intake & Output 08/04/20 08/05/20 08/05/20 18:59 06:59 18:59 Intake Total 250 240 250 Output Total 400 600 400 Balance -150 -360 -150 Weight 78.7 kg Intake: IV 250 Oral 240 250 Output: Urine 400 600 400 Other: Voiding Method Urinal # Voids 2 ABP, PAP, CO, CI - Last Documented Arterial Blood Pressure 151/53 - Labs CBC & Chem 7: 08/05/20 07:38 08/05/20 07:38 Labs: Abnormal Lab Results - Last 24 Hours (Table) 08/05/20 08/05/20 Range/Units 07:38 07:38 RBC 3.66 L (4.30-5.90) m/uL Hgb 11.0 L (13.0-17.5) gm/dL Hct 33.2 L (39.0-53.0) % Chloride 108 H (98-107) mmol/L BUN 21 H (9-20) mg/dL
--- NOTE | 2020-08-05 13:45 | PN ---
PROGRESS NOTE PULMONARY/CRITICAL CARE PROGRESS NOTE: DATE OF SERVICE: This is a 65-year-old gentleman who was in the ICU up until a couple days ago. Currently, the patient is on room air. His saturations are excellent. He is doing well. He denies any chest pain or chest discomfort. Denies any shortness of breath or cough. There is no fever or chills. Denies chest pain or chest discomfort. He also denies any nausea, vomiting, diarrhea, or abdominal pain. The patient is status post dual-chamber ICD implantation. Discharge will be determined by Cardiology. From the pulmonary standpoint, the patient is doing well. PHYSICAL EXAMINATION: VITAL SIGNS: Current vital signs include temperature 97.8, heart rate 59, respiratory rate 16, blood pressure 156/72, mean 100, and room air saturation between 93% and 95%. Appears in no acute distress. HEENT: Examination is grossly unremarkable. NECK: Supple. Full range of motion. No adenopathy. Neck veins are flat. CARDIOVASCULAR: Examination reveals regular rhythm and rate. Heart rate 60. S1, S2 normal. Heart sounds distant. LUNGS: Reveal mostly clear breath sounds. No wheezes, rhonchi, or crackles. ABDOMEN: Soft. Bowel sounds are heard. EXTREMITIES are intact. No cyanosis, clubbing, or edema. SKIN: Without rash. NEUROLOGIC: Examination is brief but nonfocal. LABS: Reviewed. White count 9.7, hemoglobin 11, hematocrit 33.2, platelet count 315,000. Sodium 138, potassium 3.7, chloride 108, CO2 24, anion gap is 6. BUN and creatinine were 21 and 0.89. Microbiology is currently negative. No recent chest x-ray to report. CURRENT MEDICATIONS: Reviewed. The patient is on Tylenol, Cordarone, amlodipine, Artificial Tears, aspirin, Lipitor, Coreg, Plavix, subcu heparin, lisinopril, melatonin, Narcan, Protonix, and Aldactone. ASSESSMENT: 1. Acute hypoxemic respiratory failure secondary to cardiopulmonary arrest with evidence of ventricular fibrillation, status post defibrillation x4, CPR, with eventual return of spontaneous circulation. The patient was weaned and extubated on July 30. 2. Postoperative day #1 status post dual-chamber ICD implantation by Dr. Noble. 3. Possible mild anoxic brain injury secondary to cardiac arrest, although patient's neurologic status is greatly improved. 4. Severe cardiomyopathy and LV dysfunction in a patient who was noncompliant with his LifeVest at the time of cardiac arrest. 5. Severe ischemic cardiomyopathy. 6. Recent history of bypass grafting, May 2020. 7. Paroxysmal atrial fibrillation. 8. History of left ventricular thrombus. 9. Benign essential hypertension. 10.Peripheral vascular occlusive disease with previous aortobifemoral bypass, 2004. 11.History of cerebrovascular accident with residual left hand weakness, March 2020. 12.History of aspiration pneumonia. 13.Acute delirium, improved. PLAN: The patient is doing well from the pulmonary standpoint. He is postop day #1 status post dual-chamber ICD implantation by Dr. Noble. From the pulmonary standpoint, the patient has been weaned to room air. Saturations are excellent. Will continue to follow. Prognosis is guarded. MMODL / IJN: [id number] /
--- NOTE | 2020-08-05 18:13 | P.PN ---
Subjective Progress Note Date: 08/05/20 (delayed charting seen at seen at 0930) Principal diagnosis: unresponsive Patient is a 65-year-old male with systolic cardiomyopathy , ejection fraction 25-30% and orders for LifeVest, paroxysmal A. fib, hypertension, dyslipidemia, chronic tobacco dependence, and peripheral arterial disease who presented as a CPR in progress. Patient did have [place] subsequently intubated and admitted to the ICU. Chest x-ray revealed moderate congestive heart failure with possible superimposed pneumonia in the right lung. There was some concern for possible aspiration event. CT of the brain showed no acute process, EKG showed sinus rhythm with a right bundle branch block, repeat echocardiogram showed severe global hypokinesis with ejection fraction 20-25%. COVID 19 testing was neg ative. He was started on normal saline, amiodarone, and propofol. He was also initiated on bronchodilators. Cardiology and critical care were consulted. On 07/27 the attempted sedation holiday and patient became agitated and was not able to follow any commands. He was replaced on propofol. There is concern for anoxic encephalopathy. Neurology was consulted. He underwent an EEG which was suggestive of hypoxic encephalopathy however there was preserved background which would have relatively good prognosis. His sedation was switched to Precedex. He was able to start following commands and was subsequently extubated on 07/30. Chest x-ray on 07/31 showed possible left lower lobe infilt rate and he was started on Zosyn. He was noted to have some delirium. He was seen by neurology on 08/02 they felt he had a relatively good prognosis. They did recommend neuropsych eval on discharge. Patient seen and examined at bedside. He denies chest pain, shortness breath, nausea, or vomiting. He denies weakness. He wants to go home and not to rehab. No pain after ICD. General: non toxic, no distress, appears at stated age Derm: warm, dry Head: atraumatic, normocephalic, symmetric Eyes: EOMI, no lid lag, anicteric sclera Mouth: no lip lesion, mucus membranes moist Cardiovascular: S1S2 reg, no murmur, positive posterior tibial pulse bilateral, Lungs: CTA bilateral, no rhonchi, no rales , no accessory muscle use Abdominal: soft, nontender to palpation, no guarding, no appreciable organomegaly Ext: no gross muscle atrophy, no edema, no contractures Neuro: CN II-XI grossly intact, no focal neuro deficits Psych: Alert, oriented, appropriate affect V. fib arrest -Status post AICD 08/[address] Corado -Continue with amiodarone -Cardiology recommendations- RX sent to [facility] Systolic cardiomyopathy with ejection fraction 25-30% -Clinically compensated -Coreg, lisinopril, follow fluid status closely Coronary artery disease -Aspirin, statin, Plavix, beta mona Paroxysmal atrial fibrillation -Currently maintaining sinus rhythm -Continue with metoprolol, amiodarone -EP evaluation -No plans for anticoagulation at this time Hypertension, BP mildly elevated -Continue with Norvasc, Coreg Dyslipidemia -Continue with statin Anemia -Likely ICU induced -Follow CBC -If continues outpatient evaluation History of left ventricular thrombus History of ischemic CVA with left hand weakness Thrombocytopenia, likely reactive, resolved Aspiration pneumonia, status post treatment Coronary artery disease status post quadruple bypass Aborted sudden cardiac secondary to V. fib arrest Acute hypoxic respiratory failure Acute metabolic encephalopathy, improved updated over phone. Plan is for home tomorrow after repeat PT/OT evaluation. 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 Objective - Vital Signs Vital signs: Vital Signs Temp 97.8 F 08/05/20 08:00 Pulse 73 08/05/20 16:00 Resp 16 08/05/20 03:57 BP 190/85 08/05/20 16:00 Pulse Ox 95 08/05/20 16:00 Intake & Output 08/04/20 08/05/20 08/05/20 18:59 06:59 18:59 Intake Total 250 240 350 Output Total 400 600 400 Balance -150 -360 -50 Weight 78.7 kg Intake: IV 250 Oral 240 350 Output: Urine 400 600 400 Other: Voiding Method Urinal # Voids 2 ABP, PAP, CO, CI - Last Documented Arterial Blood Pressure 151/53 - Labs CBC & Chem 7: 08/05/20 07:38 08/05/20 07:38 Labs: Abnormal Lab Results - Last 24 Hours (Table) 08/05/20 08/05/20 Range/Units 07:38 07:38 RBC 3.66 L (4.30-5.90) m/uL Hgb 11.0 L (13.0-17.5) gm/dL Hct 33.2 L (39.0-53.0) % Chloride 108 H (98-107) mmol/L BUN 21 H (9-20) mg/dL
[2020-08-05] MEDS: MELATONIN 5 MG TABLET PO SCH (20:38)
[2020-08-06] MEDS: carvediloL 12.5 MG TAB PO SCH (06:37)
[2020-08-06] MEDS: PANTOPRAZOLE 40 MG TABLET PO SCH (06:37)
[2020-08-06 07:29] LABS: HCT 33.8 % (39.0-53.0); HGB 11.5 gm/dL (13.0-17.5); MCH 30.9 pg (25.0-35.0); MCHC 33.9 g/dL (31.0-37.0); MCV 91.2 fL (80.0-100.0); Mean Platelet Volume 7.8; Platelet Count 217 k/uL (150-450); RBC 3.71 m/uL (4.30-5.90); WBC 10.9 k/uL (3.8-10.6)
[2020-08-06 07:41] LABS: African American GFR (CKD) >90 (>60 ml/min/1.73 sqM); Anion Gap 8 mmol/L; Blood Urea Nitrogen 17 mg/dL (9-20); Calcium 8.6 mg/dL (8.4-10.2); Carbon Dioxide 22 mmol/L (22-30); Chloride 107 mmol/L (98-107); Glucose 79 mg/dL (74-99); Magnesium 1.7 mg/dL (1.6-2.3); Non-African American GFR(CKD) >90 (>60 ml/min/1.73 sqM); Potassium 3.8 mmol/L (3.5-5.1); Sodium 137 mmol/L (137-145)
[2020-08-06] MEDS: amLODIPine 2.5 MG TAB PO SCH (08:24)
[2020-08-06] MEDS: ASPIRIN 81 MG PO SCH (08:24)
[2020-08-06] MEDS: CLOPIDOGREL 75 MG TAB PO SCH (08:25)
[2020-08-06] MEDS: SPIRONOLACTONE 25 MG TAB PO SCH (08:25)
[2020-08-06] MEDS: lisinopriL 20 MG TAB PO SCH (08:25)
[2020-08-06] MEDS: AMIODARONE 200 MG TAB PO SCH (08:25)
[2020-08-06] MEDS: ATORVASTATIN 40 MG TAB PO SCH (08:25)
[2020-08-06] MEDS: HEPARIN SODIUM,PORCINE 5,000 UNIT/ML 1 ML VIAL SQ SCH (08:25)
--- NOTE | 2020-08-06 09:26 | P.PN ---
Subjective Progress Note Date: 08/06/20 On today's evaluation of 08/06/2020, the patient is awake and alert and he is currently on room air oxygen. He is doing well. No chest pain. No altered mentation. His memory is poor. He is able to answer questions appropriately. Is moving all 4 extremities without any limitation was done some degree of walking. No nausea. No vomiting. No abdominal pain. He also has a dual- chamber AICD implantation was done on 08/04/[address] Corado. Objective - Vital Signs Vital signs: Vital Signs Temp 98.1 F 08/06/20 04:00 Pulse 72 08/06/20 04:00 Resp 16 08/06/20 04:00 BP 165/78 08/06/20 04:00 Pulse Ox 94 L 08/06/20 04:00 Intake & Output 08/05/20 08/06/20 08/06/20 18:59 06:59 18:59 Intake Total 590 0 Output Total 400 800 550 Balance 190 -800 -550 Weight 79 kg Intake: Oral 590 0 Output: Urine 400 800 550 Other: Voiding Method Urinal # Voids 2 ABP, PAP, CO, CI - Last Documented Arterial Blood Pressure 151/53 - Exam GENERAL EXAM: Alert, pleasant, oriented 3, 65-year-old white male, RA oxygen with pulse ox of 98% comfortable in no apparent distress. HEAD: Normocephalic/atraumatic. EYES: Normal reaction of pupils, equal size. Conjunctiva pink, sclera white. NOSE: Clear with pink turbinates. THROAT: No erythema or exudates. NECK: No masses, no JVD, no thyroid enlargement, no adenopathy. CHEST: No chest wall deformity. Symmetrical expansion. LUNGS: Equal air entry with minimal basilar crackles, but no wheeze, rhonchi or dullness. CVS: Regular rate and rhythm, normal S1 and S2, no gallops, no murmurs, no rubs ABDOMEN: Soft, nontender. No hepatosplenomegaly, normal bowel sounds, no guarding or rigidity. EXTREMITIES: No clubbing, mild nonpitting edema in bilateral hands, no cyanosis, 2+ pulses and upper and lower extremities. MUSCULOSKELETAL: Muscle strength and tone normal. SPINE: No scoliosis or deformity SKIN: No rashes CENTRAL NERVOUS SYSTEM: Alert and oriented -3. No focal deficits, tone is normal in all 4 extremities. PSYCHIATRIC: Alert and oriented -3. Appropriate affect. Intact judgment and insight. - Labs CBC & Chem 7: 08/06/20 06:57 08/06/20 06:57 Labs: Abnormal Lab Results - Last 24 Hours (Table) 08/06/20 Range/Units 06:57 WBC 10.9 H (3.8-10.6) k/uL RBC 3.71 L (4.30-5.90) m/uL Hgb 11.5 L (13.0-17.5) gm/dL Hct 33.8 L (39.0-53.0) % Assessment and Plan Plan: #1. Acute hypoxic respiratory failure secondary to cardiopulmonary arrest. Patient had ventricular fibrillation secondary to severe cardiomyopathy and LV dysfunction, was resuscitated, required defibrillation 4, CPR, with return of spontaneous circulation. he was successfully weaned and extubated on 07/30/2020. Currently the patient is on room air oxygen. The patient also has a pacemaker/AICD in place and this was implanted successfully by electrophysiology. #2. Rule out mild anoxic brain injury secondary to cardiac arrest, recovered #3. Severe cardiomyopathy and LV dysfunction, patient was supposed to be wearing his LifeVest at the time of cardiac arrest which he was not wearing at the time #4. Severe ischemic cardiomyopathy #5. Recent history of bypass grafting 4 on 05/24/2020 #6. Paroxysmal atrial fibrillation, currently in sinus mechanism #7. History of left ventricular thrombus #8. Benign essential hypertension #9. Peripheral vessel occlusive disease and previous aortobifemoral bypass in 2004 #10. History of CVA and left hand weakness in March 2020 #11. Possible aspiration pneumonia on Zosyn #12. Acute delirium related to critical illness, aspiration pneumonia, recent history of cardiac arrest, acute hypoxic respiratory failure requiring intubation and mechanical ventilation. Patient's mental status is completely back to his baseline and he is awake and alert 3. ANKITA Cardiac condition is stable for now. The patient on no antibiotics. The patient underwent oxygen. He is using incentive spirometer. His mental status improved. Obtain a follow-up chest x-ray as the patient has not had one since his pacemaker/defibrillator insertion. We'll continue to follow.
[2020-08-06 09:32] VITALS: BP 136/70; PULSE 70; TEMP 97.1
--- NOTE | 2020-08-06 10:05 | XR ---
EXAMINATION TYPE: XR chest 1V DATE OF EXAM: 08/06/2020 CLINICAL HISTORY: Difficulty breathing progress study. TECHNIQUE: Single AP portable upright view of the chest is obtained. COMPARISON: Chest x-ray from 3 days earlier and older studies. FINDINGS: Cardiomegaly with new dual lead pacemaker/defibrillator having leads terminate over right atrium and right ventricle. Overlying Sternal wires and mediastinal clips along with left atrial appe ndage clip are all redemonstrated. Persistent cardiomegaly with atherosclerotic aorta. Chronic parenc hymal changes bilaterally with some persistent Kayce B lines. No pleural effusion or pneumothorax se en bilaterally. Osseous structures are intact. IMPRESSION: New Dual-lead pacemaker/defibrillator. Cardiomegaly and chronic parenchymal changes with mild interstitial edema redemonstrated.
--- NOTE | 2020-08-06 11:20 | P.DS ---
Providers Date of admission: 07/25/20 01:49 Expected date of discharge: 08/06/20 Attending physician: Diana Cuba DO Consults: 07/25/20 01:45 Consult Physician Stat Consulting Provider: Guillermo Macias Consult Reason/Comments: Intubated patient Do you want consulting provider notified?: Already Contacted Consult Physician Urgent Consulting Provider: Christin Boyle Consult Reason/Comments: Cardiopulmonary arrest Do you want consulting provider notified?: Already Contacted 07/27/20 08:49 Consult Physician Routine Consulting Provider: Luisa Linares Consult Reason/Comments: cardiac arrest, AMS Do you want consulting provider notified?: Yes Primary care physician: [facility] Course: Discharge Diagnosis: Aborted sudden cardiac secondary to V. fib arrest secondary to ischemic cardiomyopathy Chronic Systolic cardiomyopathy with ejection fraction 25-30% Coronary artery disease status post quadruple bypass Paroxysmal atrial fibrillation Hypertension, BP mildly elevated Dyslipidemia Anemia, Likely ICU induced Thrombocytopenia, likely reactive Aspiration pneumonia, status post treatment Acute hypoxic respiratory failure Acute metabolic encephalopathy History of left ventricular thrombus History of ischemic CVA with left hand weakness Hospital Course: Patient is a 65-year-old male with systolic cardiomyopathy , ejection fraction 25-30% and orders for LifeVest, paroxysmal A. fib, hypertension, dyslipidemia, chronic tobacco dependence, and peripheral arterial disease who presented as a CPR in progress. Patient did have ROSC and was subsequently intubated and admitted to the ICU. Chest x-ray revealed moderate congestive heart failure with possible superimposed pneumonia in the right lung. There was some concern for possible aspiration event. CT of the brain showed no acute process, EKG showed sinus rhythm with a right bundle branch block, repeat echocardiogram showed severe global hypokinesis with ejection fraction 20-25%. COVID 19 testing was negative. He was started on normal saline, amiodarone, and propofol. He was also initiated on bronchodilators. Cardiology and critical care were consulted. On 07/27 they attempted sedation holiday and patient became agitated and was not able to follow any commands. He was replaced on propofol. There is concern for anoxic encephalopathy. Neurology was consulted. He underwent an EEG which was suggestive of hypoxic encephalopathy however there was preserved background which would have relatively good prognosis. His sedation was switched to Precedex. He was able to start following commands and was subsequently extubated on 07/30. Chest x-ray on 07/31 showed possible left lower lobe infiltrate and he was started on Zosyn. He was noted to have some delirium which improved throughout his hospital stay. He was seen by neurology on 08/02 they felt he had a relatively good prognosis. They did recommend neuropsych eval on discharge. He had AICD placed on 08/04 [facility] complaications. He was seen by PT/OT and was able to ambulate 56 feet but was unsteady. will be there 02/03 and he was determined appropriate for home with home health and 02/03 supervision by . He will follow with Cardio, Dr. Mcallister, and neuro psych from [facility]. Patient seen and examined at bedside. No complaints, up and walking with therapy, No chest pain, no shortness of breath. Understands that he needs follow-up and 02/03 supervision at this time. Vital signs reviewed and stable. General: non toxic, no distress, appears at stated age Derm: warm, dry Head: atraumatic, normocephalic, symmetric Eyes: EOMI, no lid lag, anicteric sclera Mouth: no lip lesion, mucus membranes moist Cardiovascular: S1S2 reg, no murmur, positive posterior tibial pulse bilateral, Lungs: CTA bilateral, no rhonchi, no rales , no accessory muscle use Abdominal: soft, nontender to palpation, no guarding, no appreciable organomegaly Ext: no gross muscle atrophy, no edema, no contractures Neuro: CN II-XI grossly intact, no focal neuro deficits Psych: Alert, oriented, blunted affect A total of 37 minutes of time were spent preparing this complex discharge summary . Patient Condition at Discharge: Stable Plan - Discharge Summary Discharge Rx Participant: Yes New Discharge Prescriptions: New Spironolactone [Aldactone] 25 mg PO DAILY #90 tablet Carvedilol [Coreg] 12.5 mg PO BID #180 tablet Aspirin EC [Ecotrin Low Dose] 81 mg PO DAILY #90 tablet. amLODIPine [Norvasc] 2.5 mg PO DAILY #90 tablet lisinopriL [Zestril] 20 mg PO DAILY #30 tab Continue Atorvastatin [Lipitor] 40 mg PO QAM Pantoprazole [Protonix] 40 mg PO AC-BRKFST #30 tablet. Acetaminophen Tab [Tylenol] 1,000 mg PO Q6HR PRN tab PRN Reason: Fever and/ or MILD Pain Sennosides-Docusate Sodium [Senokot-S] 2 tab PO HS PRN PRN Reason: Constipation Clopidogrel [Plavix] 75 mg PO DAILY #30 tab Discontinued Aspirin 325 mg PO DAILY #30 tab Metoprolol Tartrate [Lopressor] 50 mg PO BID #60 tab amLODIPine [Norvasc] 5 mg PO DAILY@1200 #30 tab lisinopriL [Zestril] 5 mg PO DAILY@1200 #30 tab Discharge Medication List Atorvastatin [Lipitor] 40 mg PO QAM 05/17/20 [History] Acetaminophen Tab [Tylenol] 1,000 mg PO Q6HR PRN tab 05/29/20 [Rx] Pantoprazole [Protonix] 40 mg PO AC-BRKFST #30 tablet. 05/29/20 [Rx] Sennosides-Docusate Sodium [Senokot-S] 2 tab PO HS PRN 07/25/20 [History] Aspirin EC [Ecotrin Low Dose] 81 mg PO DAILY #90 tablet. 08/04/20 [Rx] Carvedilol [Coreg] 12.5 mg PO BID #180 tablet 08/04/20 [Rx] Spironolactone [Aldactone] 25 mg PO DAILY #90 tablet 08/04/20 [Rx] amLODIPine [Norvasc] 2.5 mg PO DAILY #90 tablet 08/04/20 [Rx] Clopidogrel [Plavix] 75 mg PO DAILY #30 tab 08/06/20 [Rx] lisinopriL [Zestril] 20 mg PO DAILY #30 tab 08/06/20 [Rx] Follow up Appointment(s)/Referral(s): oRsalino Mcallister MD [Primary Care Provider] - 1 Week John Noble MD [STAFF PHYSICIAN] - 1 Week Activity/Diet/Wound Care/Special Instructions: Activity: as tolerated with supervision, Do not lift anything greater than 3 pounds with your left arm. Diet: heart healthy diet Special Instructions: Will need neuropsych eval with [facility]: [phone] please call for appointment in the morning pt will require the use of a standard cane to assist with ambulation and safety completing ADL's r/t weakness following cardiac arrest and pacemaker placement Discharge Disposition: HOME WITH HOME HEALTH SERVICES
--- NOTE | 2020-08-06 11:55 | P.PN ---
Subjective Progress Note Date: 08/06/20 Principal diagnosis: Cardiac arrest This is a 65-year-old gentleman with a cardiomyopathy who sustained cardiac arrest secondary to V. fib. He underwent an AICD. He was seen this morning. He remains asymptomatic from a cardiovascular standpoint of view. The patient would like to be discharged home. He denies any symptoms of chest pain or chest discomfort or shortness of breath or dizziness or lightheadedness. Objective - Vital Signs Vital signs: Vital Signs Temp 97.1 F L 08/06/20 08:00 Pulse 70 08/06/20 08:00 Resp 16 08/06/20 08:00 BP 136/70 08/06/20 08:00 Pulse Ox 95 08/06/20 08:00 Intake & Output 08/05/20 08/06/20 08/06/20 18:59 06:59 18:59 Intake Total 590 0 Output Total 400 800 550 Balance 190 -800 -550 Weight 79 kg Intake: Oral 590 0 Output: Urine 400 800 550 Other: Voiding Method Urinal # Voids 2 ABP, PAP, CO, CI - Last Documented Arterial Blood Pressure 151/53 - Constitutional General appearance: Present: no acute distress - Respiratory Respiratory: bilateral: diminished - Cardiovascular Rhythm: regular Heart sounds: normal: S1, S2 - Labs CBC & Chem 7: 08/06/20 06:57 08/06/20 06:57 Labs: Abnormal Lab Results - Last 24 Hours (Table) 08/06/20 Range/Units 06:57 WBC 10.9 H (3.8-10.6) k/uL RBC 3.71 L (4.30-5.90) m/uL Hgb 11.5 L (13.0-17.5) gm/dL Hct 33.8 L (39.0-53.0) % Assessment and Plan Assessment: Assessment #1 cardiac arrest #2 status post AICD #3 cardiomyopathy #4 multiple comorbid conditions Plan #1 continue the current medical regimen #2 the patient can be discharged home
--- NOTE | 2020-08-06 13:00 | P.PN ---
Subjective Progress Note Date: 08/06/20 Patient was seen in initial consultation on 07/27/2020. Patient now seen for a follow-up. Patient is extubated, on the regular floor, fully alert awake and oriented, as per examination below. Patient states that before his admission, he was doing his work around his house, but tired, laid down but did not wear his life vest. He had a cardiac arrest. Patient states that since he came out, he is doing much better. He is remembering most of the stuff. Has not noticed any focal deficits. No visual issues. Objective - Vital Signs Vital signs: Vital Signs Temp 97.1 F L 08/06/20 08:00 Pulse 70 08/06/20 08:00 Resp 16 08/06/20 08:00 BP 136/70 08/06/20 08:00 Pulse Ox 95 08/06/20 08:00 Intake & Output 08/05/20 08/06/20 08/06/20 18:59 06:59 18:59 Intake Total 590 0 Output Total 400 800 550 Balance 190 -800 -550 Weight 79 kg Intake: Oral 590 0 Output: Urine 400 800 550 Other: Voiding Method Urinal # Voids 2 ABP, PAP, CO, CI - Last Documented Arterial Blood Pressure 151/53 - Exam On examination patient is an elderly male, in no acute distress. Speech and language functions are completely normal. No aphasia or dysarthria. Patient knows it is 08/06/2020 that he is in [place] in [facility] in [place]. He knows name of the current at the next president. Speech and language functions are normal. Attention, concentration and fund of knowledge is adequate. On cranial examination pupils are round and reactive to light, visual locke are full, extraocular muscles are intact with no nystagmus. Face is symmetric, tongue protrudes the midline. Palatal elevation and sensation normal. Hearing and shoulder shrug normal. On muscle strength testing there is no pronator drift and the strength is normal in arms and legs distally and proximally. 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 No ataxia for [id number] testing on the right side. Reflexes are symmetric and plantars downgoing. Sensations are equal with no neglect. - Labs CBC & Chem 7: 08/06/20 06:57 08/06/20 06:57 Labs: Abnormal Lab Results - Last 24 Hours (Table) 08/06/20 Range/Units 06:57 WBC 10.9 H (3.8-10.6) k/uL RBC 3.71 L (4.30-5.90) m/uL Hgb 11.5 L (13.0-17.5) gm/dL Hct 33.8 L (39.0-53.0) % Assessment and Plan Assessment: * Status post witnessed Cardiac arrest at home. Patient has recovered very well, mentation back to normal, and neurological examination is completely nonfocal. * Status post acute hypoxic respiratory failure secondary to cardiopulmonary arrest. Status post extubation. * Severe cardiomyopathy and left ventricular dysfunction. * History of ischemic CVA with left hand weakness 03/29/2020. * Paroxysmal atrial fibrillation. * History of left-ventricular thrombus. * Hypertension * History of tobacco use * Hyperlipidemia Plan: * Patient's mentation is normal, examination nonfocal. Patient has recovered very well from cardiac arrest. * Carotid Doppler 03/30/2020 showed no significant stenosis, antegrade flow in both vertebral arteries. * EEG was performed, which revealed abnormal sleep EEG because of intermittent generalized suppressed activity for 1-2 seconds. This can be seen with hypoxic anoxic encephalopathies. However fairly well preserved background was also seen during most of the study pertaining to relatively good prognosis. Clinical correlation recommended. No epileptiform activity was seen. * 2-D echo showed severe global hypokinesis of the left ventricle, EF is severely impaired between 20-25%. Left atrial size is normal. * Patient has arms as well as atrial fibrillation. Patient is currently on dual antiplatelet medication. I would defer need for anticoagulation to cardiology and IM. * Neurologically clear for discharge.
== END 2020-08-06 13:55 | disposition home health service (06) | DRG 226 ==
LOC: EC 00:34 → 2SICU 01:49 → 3SCARD 08-02 15:01
PROVIDERS: ADMIT Internal Medicine; ATTEND Internal Medicine
PROC: 5A12012 Performance of Cardiac Output, Single, Manual (ICD-10-PCS; 2020-07-25)
PROC: 0BH17EZ Insertion of Endotracheal Airway into Trachea, Via Natural or Artificial Opening (ICD-10-PCS; 2020-07-25)
PROC: 5A1955Z Respiratory Ventilation, Greater than 96 Consecutive Hours (ICD-10-PCS; 2020-07-25)
PROC: 4A133B1 Monitoring of Arterial Pressure, Peripheral, Percutaneous Approach (ICD-10-PCS; 2020-07-26)
PROC: 03HY32Z Insertion of Monitoring Device into Upper Artery, Percutaneous Approach (ICD-10-PCS; 2020-07-26)
PROC: 4A133J1 Monitoring of Arterial Pulse, Peripheral, Percutaneous Approach (ICD-10-PCS; 2020-07-26)
PROC: 3E033XZ Introduction of Vasopressor into Peripheral Vein, Percutaneous Approach (ICD-10-PCS; 2020-07-26)
PROC: 02HV33Z Insertion of Infusion Device into Superior Vena Cava, Percutaneous Approach (ICD-10-PCS; 2020-07-26)
PROC: 02HK3KZ Insertion of Defibrillator Lead into Right Ventricle, Percutaneous Approach (ICD-10-PCS; principal; 2020-08-04 13:00)
PROC: 0JH609Z Insertion of Cardiac Resynchronization Defibrillator Pulse Generator into Chest Subcutaneous Tissue and Fascia, Open Approach (ICD-10-PCS; principal; 2020-08-04 13:00)
PROC: 02H63KZ Insertion of Defibrillator Lead into Right Atrium, Percutaneous Approach (ICD-10-PCS; principal; 2020-08-04 13:00)
DX: I49.01 Ventricular fibrillation (principal); J96.01 Acute respiratory failure with hypoxia; G93.41 Metabolic encephalopathy; J69.0 Pneumonitis due to inhalation of food and vomit; I50.22 Chronic systolic (congestive) heart failure; F05 Delirium due to known physiological condition; J98.11 Atelectasis; G93.1 Anoxic brain damage, not elsewhere classified; I46.2 Cardiac arrest due to underlying cardiac condition; I25.10 Atherosclerotic heart disease of native coronary artery without angina pectoris; I25.5 Ischemic cardiomyopathy; Z20.828 Contact with and (suspected) exposure to other viral communicable diseases; I45.10 Unspecified right bundle-branch block; I48.0 Paroxysmal atrial fibrillation; I73.9 Peripheral vascular disease, unspecified; D69.6 Thrombocytopenia, unspecified; E78.5 Hyperlipidemia, unspecified; F17.200 Nicotine dependence, unspecified, uncomplicated; I11.0 Hypertensive heart disease with heart failure; R13.10 Dysphagia, unspecified; D64.9 Anemia, unspecified; I51.3 Intracardiac thrombosis, not elsewhere classified; Z79.82 Long term (current) use of aspirin; Z79.899 Other long term (current) drug therapy; I69.334 Monoplegia of upper limb following cerebral infarction affecting left non-dominant side; Z79.02 Long term (current) use of antithrombotics/antiplatelets; Z88.1 Allergy status to other antibiotic agents; Z87.01 Personal history of pneumonia (recurrent); Z91.19 Patient's noncompliance with other medical treatment and regimen; Z95.1 Presence of aortocoronary bypass graft; Z86.79 Personal history of other diseases of the circulatory system; Z82.5 Family history of asthma and other chronic lower respiratory diseases; Z82.49 Family history of ischemic heart disease and other diseases of the circulatory system; I25.2 Old myocardial infarction; Z90.89 Acquired absence of other organs; Z98.890 Other specified postprocedural states
CPT/HCPCS: 31500; 33249; 36415; 36600; 70450; 71045; 80048; 80053; 81001; 82805; 83605; 83735; 84132; 84145; 84484; 85025; 85027; 85610; 85730; 87040; 87070; 87205; 87635; 90686; 93005; 93306; 93308; 94002; 94003; 94640; 94760; 95816; 96365; 96366; 96375; 99285

== ENCOUNTER → 2020-08-23 | Outpatient (CLI) | payer BC ==
--- NOTE | 2020-08-29 10:44 | P.ARTDOP ---
Arterial Doppler LOWER EXTREMITY ARTERIAL DOPPLER: DATE OF SERVICE: 08/23/2020 Reason for study: Bilateral leg weakness. Doppler waveforms: Multiphasic at the right femoral and popliteal. Atypical at the right posterior tibial and monophasic at the dorsalis pedis with poor toe waveforms. Atypical at femoral popliteal on the left with monophasic digital waveforms. Unable to hear posterior tibial or anterior tibial signals on the left.. Pulse volume recording: []. Pressure gradients: Unable to register any pressures on the left. Gradient across the thigh on the right and below the knee.. Ankle-brachial indices: 0.55 on the right. Toe brachial indices: 0.47 on the right, [] on the left Impression: At least moderate right femoral popliteal disease with contributing infrapopliteal disease as well. Severe left femoral popliteal disease with possible left iliac component. Vascular specialty consultation recommended..
== END | disposition home or self-care (01) ==
LOC: RADUSWWP 12:35
PROVIDERS: ATTEND Family Medicine
DX: I73.9 Peripheral vascular disease, unspecified (principal)
CPT/HCPCS: 93923

== ENCOUNTER 2020-09-11 10:27 | Observation (INO) | payer BC ==
[2020-09-07 11:11] VITALS: BMI 26.8
[~2020-09-11 10:27] MED LIST changes: -ALBUMIN HUMAN 25% 50 ML IV ONE; -ALBUMIN HUMAN 5% 500 ML IVPB ONE; -ASPIRIN 325 MG TAB PO ONE; -ATORVASTATIN 10 MG TAB PO ONE; -CALCIUM CHLORIDE 100 MG/ML 10 ML SYRINGE IV ONE; -CARDIOPLEGIC SOLN (K+ 16 MEQ/L 1,000 ML with SODIUM BICARB (1 MEQ/ML) 20 ML, LIDOCAINE ... PERFUSION ONE; -CHLORHEXIDINE GLUCONATE 15 ML CUP MUCOUS MEM ONE; -CLEVIDIPINE BUTYRATE 25 MG in EMPTY BAG 1 BAG IV ONE; -DILTIAZEM 125 MG in SODIUM CHLORIDE 0.9% 100 ML IV ONE; -HEPARIN SODIUM 1,000 UN/ML (10ML VL) IV ONE; -HEPARIN SODIUM,PORCINE 5,000 UNIT in SODIUM CHLORIDE 0.9% 500 ML 500 ML IV ONE; -INSULIN REGULAR 100 UNIT in SODIUM CHLORIDE 0.9% 100 ML IV ONE; -LACTATED RINGERS 1,000 ML IV ONE; +LACTATED RINGERS 1,000 ML IV SCH; -MAGNESIUM SULFATE MG 500 MG/ML IV ONE; -MANNITOL 25% 12.5 GM/50 ML VIAL IV ONE; -METOPROLOL TARTRATE 12.5 MG TAB PO ONE; -NITROGLYCERIN-D5W PMX 25 MG/250 ML BTL IV ONE; -NITROGLYCERIN-D5W PMX 50 MG in DEXTROSE/WATER 1 250ML.BAG IV ONE; -NOREPINEPHRINE 4 MG in SODIUM CHLORIDE 0.9% 250 ML IV ONE; -PAPAVERINE 360 MG in SODIUM CHLORIDE 0.9% 90 ML IV ONE; -PHENYLEPHRINE 10 MG/ML VIAL IV ONE; -PHENYLEPHRINE 40 MG in SODIUM CHLORIDE 0.9% 250 ML IV ONE; -PROTAMINE SULFATE 10 MG/ML 25 ML VIAL IV ONE; -PROTAMINE SULFATE 250 MG in EMPTY BAG 1 BAG IV ONE; -SODIUM BICARB 8.4% 50 ML SYR (1 MEQ/ML) IV ONE; -SODIUM CHLORIDE 0.9% 1,000 ML IV ONE; +SODIUM CHLORIDE 0.9% 1,000 ML IV SCH; -TRANEXAMIC ACID 2,000 MG in SODIUM CHLORIDE 0.9% 80 ML IV ONE; -ceFAZolin 1,000 MG in SODIUM CHLORIDE 0.9% IRRIGATIO 1,000 ML IRRIGATION ONE; -ceFAZolin 2,000 MG in SODIUM CHLORIDE 0.9% 30 ML IVPB ONE; -propofoL 1,000 MG/100 ML VIAL IV ONE
[2020-09-11] MEDS ORDERED: SODIUM CHLORIDE 0.9% 500 ML 500 ML IV ONE (10:39)
[2020-09-11 10:49] VITALS: RESP 16
[2020-09-11] MEDS ORDERED: PROPOFOL 10 MG/ML 20 ML VIAL IV ONE (11:32)
--- NOTE | 2020-09-11 12:44 | P.PCN ---
Preoperative Diagnosis: Diagnosis Elevated RV thresholds, variable Variable impedances Status post dual-chamber ICD implant in July [address] [employer] medical/admit dual-chamber ICD was interrogated Thresholds were intermittently elevated and the best threshold was 4 V at 0.5 ms Impedances were variable from 300-700 ohms Ventricular fibrillation was induced. To top also noted. A 10 J shock and a 20 J shock were unsuccessful An external shock was successfully Cinefluoroscopy of the lead was performed This was compared to the postprocedure cinefluoroscopy. There has been a displacement of the ICD lead approximately towards the tricuspid valve area Plan Admit patient today ICD lead revision tomorrow morning at 7:30 Prep skin
--- NOTE | 2020-09-11 12:45 | P.HPCAR ---
History of Present Illness Please see office dictation Patient was admitted for evaluation and management of ICD function. DFT was planned RV thresholds are elevated Please see procedure note also Physical Exam Vitals: Vital Signs Temp Pulse Resp BP Pulse Ox 09/11/20 10:47 97.7 F 57 L 16 143/65 99 Intake and Output 09/10/20 09/11/20 09/11/20 22:59 06:59 14:59 Intake Total 100 Balance 100 Intake: IV 100 Other: Weight 77.7 kg Past Medical History Past Medical History: Coronary Artery Disease (CAD), Heart Failure, CVA/TIA, GERD/Reflux, Hypertension, Myocardial Infarction (MT) Additional Past Medical History / Comment(s): stroke 03/29/20-currently left foot tingling & sensitive and left fingers have cramping. , hx CHF, episode of a -fib , Left ventricular thrombus., previous cva's found on testing., Hx of AAA repair 2004 and due to stents he is unable to have MRI greater than 3.5*. ,tinnitus , diverticulitis., hx CABG (MAY 2020)& defibrillator (07/2020)., See C ardiology [facility] & [facility]., Last Myocardial Infarction Date:: 03/29/20 History of Any Multi-Drug Resistant Organisms: None Reported Past Surgical History: Coronary Bypass/CABG, Heart Catheterization, Orthopedic Surgery, Tonsillectomy Additional Past Surgical History / Comment(s): bypass sx in left leg, AAA repair 2004, jason carpal tunnel, rt hand X2, KASSIE., Defibrillator-(08/04/21), CABG (05/24/2020) Past Anesthesia/Blood Transfusion Reactions: No Reported Reaction Additional Past Anesthesia/Blood Transfusion Reaction / Comment(s): . 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 Smoking Status: Former smoker Past Alcohol Use History: None Reported Additional Past Alcohol Use History / Comment(s): Quit Smoking 04/10/20, smoked approx 1/2ppd, started smoking 1976. Past Drug Use History: None Reported - Past Family History Mother Family Medical History: COPD Father Family Medical History: Myocardial Infarction (MT) Additional Family Medical History / Comment(s): from Brain aneurysm family Family Medical History: No Reported History Physical Examination Vital Signs Temp Pulse Resp BP Pulse Ox 09/11/20 10:47 97.7 F 57 L 16 143/65 99 Intake and Output 09/10/20 09/11/20 09/11/20 22:59 06:59 14:59 Intake Total 100 Balance 100 Intake: IV 100 Other: Weight 77.7 kg Results Current Medications Generic Name Dose Route Start Last Admin Trade Name Freq PRN Reason Stop Dose Admin Sodium Chloride 1,000 mls @ 20 mls/hr 09/11/20 06:28 Saline 0.9% IV 10/11/20 06:29 .Q24H OSWALDO Lactated Ringer's 1,000 mls @ 20 mls/hr 09/11/20 06:28 Lactated Ringers IV 10/11/20 06:29 .Q24H OSWALDO Intake and Output 09/10/20 09/11/20 09/11/20 22:59 06:59 14:59 Intake Total 100 Balance 100 Intake: IV 100 Other: Weight 77.7 kg Patient Weight 09/12/20 06:59 Weight 77.7 kg
[2020-09-11 12:55] VITALS: BP 130/76; PULSE 50; TEMP 97.4
[2020-09-12] MEDS ORDERED: ceFAZolin 1 GM in SODIUM CHLORIDE 0.9% 250 ML IRRIGATION PRN (07:00)
== END 2020-09-11 17:05 | disposition home or self-care (01) ==
LOC: CATHEP 10:27 → INTOOBSV 12:04 → 3SCARD 12:04 → UNDODISIN 17:05
PROVIDERS: ADMIT Internal Medicine Clinical Cardiac Electrophysiology; ATTEND Internal Medicine Clinical Cardiac Electrophysiology
DX: T82.120A Displacement of cardiac electrode, initial encounter (principal); Z45.02 Encounter for adjustment and management of automatic implantable cardiac defibrillator; Y71.2 Prosthetic and other implants, materials and accessory cardiovascular devices associated with adverse incidents; I25.2 Old myocardial infarction; K21.9 Gastro-esophageal reflux disease without esophagitis; N28.9 Disorder of kidney and ureter, unspecified; I50.9 Heart failure, unspecified; I25.10 Atherosclerotic heart disease of native coronary artery without angina pectoris; I11.0 Hypertensive heart disease with heart failure; D64.9 Anemia, unspecified; E78.5 Hyperlipidemia, unspecified; I48.0 Paroxysmal atrial fibrillation; R20.0 Anesthesia of skin; I73.9 Peripheral vascular disease, unspecified; G62.9 Polyneuropathy, unspecified; I25.5 Ischemic cardiomyopathy; Z86.74 Personal history of sudden cardiac arrest; Z86.73 Personal history of transient ischemic attack (TIA), and cerebral infarction without residual deficits; Z86.79 Personal history of other diseases of the circulatory system; Z87.891 Personal history of nicotine dependence; Z95.1 Presence of aortocoronary bypass graft; Z88.1 Allergy status to other antibiotic agents; Z95.5 Presence of coronary angioplasty implant and graft; Z86.718 Personal history of other venous thrombosis and embolism; Z79.899 Other long term (current) drug therapy; Z79.82 Long term (current) use of aspirin; Z79.02 Long term (current) use of antithrombotics/antiplatelets; Z82.49 Family history of ischemic heart disease and other diseases of the circulatory system; Z82.5 Family history of asthma and other chronic lower respiratory diseases
CPT/HCPCS: 93642; G0378; J2704

== ENCOUNTER 2020-09-14 06:13 | Day surgery (SDC) | payer BC ==
[2020-09-12 12:32] VITALS: BMI 27.6
[~2020-09-14 06:13] MED LIST changes: -LACTATED RINGERS 1,000 ML IV SCH; +MIDAZOLAM 2 MG/2 ML VIAL IV PRN
[2020-09-14] MEDS ORDERED: SODIUM CHLORIDE 0.9% 500 ML 500 ML IV ONE (06:19)
[2020-09-14] MEDS ORDERED: ceFAZolin 1 GM in SODIUM CHLORIDE 0.9% 250 ML IRRIGATION PRN (07:00)
[2020-09-14] MEDS ORDERED: HYDROmorphone 0.5 MG/0.5 ML SYRINGE IVP PRN (07:00)
[2020-09-14] MEDS ORDERED: MIDAZOLAM 2 MG/2 ML VIAL ONE (08:06)
[2020-09-14] MEDS ORDERED: PROPOFOL 10 MG/ML 20 ML VIAL IV ONE (08:06)
[2020-09-14] MEDS ORDERED: ePHEDrine SULFATE/0.9% NACL/PF 50 MG/5 ML SYRINGE IV ONE (08:06)
[2020-09-14] MEDS ORDERED: fentaNYL (PF) 50 MCG/ML 2 ML AMP ONE (08:06)
[2020-09-14] MEDS ORDERED: LIDOCAINE 1% INJ 10MG/ML (20 ML MDV) ONE (08:32)
[2020-09-14] MEDS ORDERED: LIDOCAINE 1% INJ 10MG/ML (20 ML MDV) SQ ONE ×2 (09:16→09:22)
[2020-09-14] MEDS ORDERED: LACTATED RINGERS 1,000 ML IV ONE (09:45)
[2020-09-14] MEDS ORDERED: ACETAMINOPHEN TAB 325 MG TAB PO PRN (10:39)
--- NOTE | 2020-09-14 11:49 | XR ---
EXAMINATION TYPE: XR chest 1V portable DATE OF EXAM: 09/14/2020 HISTORY: Shortness of breath. COMPARISON: 08/06/2020 TECHNIQUE: Single view of the chest is submitted. FINDINGS: Demonstrated are scattered senescent parenchymal change. There is no evidence for focal infiltrate. The heart is stable. Pulmonary venous congestion without overt failure. Hilar and mediastinal structures are within normal limits. Degenerative changes are seen of the dorsal spine. IMPRESSION: 1. Chronic changes without evidence for acute pulmonary disease.
--- NOTE | 2020-09-14 11:54 | CE ---
CARDIAC ELECTROPHYSIOLOGY REPORT Mr. Barnard is a 65-year-old male patient who has a dual-chamber ICD for history of cardiomyopathy and ventricular tachycardia. He is on amiodarone 200 mg p.o. daily. His RV thresholds were high and therefore he is brought in for DFT testing a few days back. His impedances and RV thresholds are variable and DFT was high and fluoroscopy revealed that the RV lead had backed out about a centimeter from its original position. Therefore, he is brought in for a lead revision today and DFT testing once again. The patient was brought to the EP lab in a fasting state. Written informed consent was obtained prior to the procedure. The left shoulder area was prepped and draped as per protocol and 1% lidocaine was used for local anesthesia. An incision was made directly over the previous surgical site and carried down to the level of the generator. The generator was explanted. The ICD lead was disconnected from the defibrillation can and the lead sleeve was freed. The screw was retracted and using a Mond stylet, this lead was repositioned in the RV septum. Good contact was noted. The thresholds were 0.6 mV without screwing out the lead. However, when the lead was screwed out, the screw would not deploy. Multiple attempts were made to retract the screw and redeploy it, but it was not deploy well. Of note, when we unscrewed it from the RV apex in its initial position, it did not unscrew completely and the lead appeared fairly well lodged. Yet, despite that, the thresholds were high and variable and the impedances were variable. A cinefluoroscopy in the KAZAKH position did not reveal any evidence for pericardial tamponade. At this point, the lead extracted with manual traction out of the right ventricle. Access was obtained again in the venous circulation using the lead insulation and a wire was placed under the lead insulation, moved into the central circulation and then freed. The lead was then extracted. The wire was placed into the IVC and a new sheath was placed. Following that, a new lead was implanted in the RV septum. The new lead was an [employer] model number [id number], 58 cm in length and serial number [id number]. The screw was deployed in the septum. Excellent pacing threshold 1 V at 0.5 milliseconds was obtained. R-waves 11.5 mV, pacing impedance 680 ohms. High-voltage impedance 51 ohms. The atrial pacing threshold 0.75 V at 0.5 millisecond sensing. P waves were 1.4 mV and pacing impedance of 490 ohms. The lead was then connected to the generator and then placed in the pocket and the wound was closed in 3 layers and dressed per protocol. DFT testing was then performed. The patient's DFT testing are high. He is on 200 joules. In the cathodal configuration, 10 joule and 20 joule shock was unsuccessful. In the anodal configuration, a 20 joule and a 30 joule shock was unsuccessful. The repeat DFT testing after 5 minutes in the cathodal configuration was performed. Thirty joules once again failed and 36 joule was successful. The device was then reprogrammed to max outputs. PLAN: At this time, I would admit him for IV antibiotics and I will stop amlodipine completely. I would maximize the carvedilol and in the future consider sotalol rather than amiodarone for suppression of ventricular tachycardia and reduction of DFTs. Thereafter, I would get him back for DFT testing once again. MMODL / IJN: [id number] /
[2020-09-14] MEDS ORDERED: ACETAMINOPHEN IV (For NPO) 1,000 MG in EMPTY BAG 1 BAG IVPB ONE (12:00)
[2020-09-14] MEDS: LACTATED RINGERS 1,000 ML IV SCH (14:47)
[2020-09-14] MEDS: carvediloL 12.5 MG TAB PO SCH (17:48)
[2020-09-14] MEDS ORDERED: CLOPIDOGREL 75 MG TAB PO STA (22:28)
[2020-09-15] MEDS: LACTATED RINGERS 1,000 ML IV SCH (05:13)
[2020-09-15] MEDS: carvediloL 12.5 MG TAB PO SCH (07:22)
[2020-09-15 07:27] VITALS: BP 164/76; PULSE 63; RESP 14; TEMP 97.8
[2020-09-15] MEDS ORDERED: PANTOPRAZOLE 40 MG TABLET PO SCH (07:30)
[2020-09-15] MEDS ORDERED: lisinopriL 20 MG TAB PO SCH (09:00)
[2020-09-15] MEDS ORDERED: SPIRONOLACTONE 25 MG TAB PO SCH (09:00)
[2020-09-15] MEDS ORDERED: ATORVASTATIN 40 MG TAB PO SCH (09:00)
[2020-09-15] MEDS ORDERED: CLOPIDOGREL 75 MG TAB PO SCH (09:00)
--- NOTE | 2020-09-15 11:58 | P.DS ---
Providers Attending physician: John Noble Primary care physician: [facility] Hospital Course: 65-year-old male with a history of chamber ICD for history of cardiomyopathy and ventricular tachycardia. Patient's RV thresholds were high and he was brought in for DFT testing recently. His impedances and RV thresholds are stable and DFT was high and fluoroscopy revealed that RV lead had backed out about a centimeter from its original position. Patient was brought back in for elective lead revision and DFT testing with Dr. Noble on 09/14/2020. Patient is doing well post procedure. Chest x-ray obtained was no evidence of pneumothorax. The patient was cleared for discharge home today per Dr. Noble. Patients amiodarone was discontinued at discharge. Patient also instructed to be taking carvedilol 25 mg twice a day. Patient to follow up outpatient in the device clinic and also with Dr. Raza. Please see EMR for further hospital course details. Discharge diagnosis 1. Status post ICD lead revision 2. History of cardiomyopathy and ventricular tachycardia Nurse practitioner note has been reviewed by physician. Signing provider agrees with the documented findings, assessment, and plan of care. Plan - Discharge Summary Discharge Rx Participant: Yes New Discharge Prescriptions: New Atorvastatin [Lipitor] 40 mg PO QAM tab carvediloL [Coreg*] 25 mg PO AC-BID #120 tab Continue Pantoprazole [Protonix] 40 mg PO AC-BRKFST #30 tablet. Spironolactone [Aldactone] 25 mg PO DAILY #90 tablet Aspirin EC [Ecotrin Low Dose] 81 mg PO DAILY #90 tablet. lisinopriL [Zestril] 20 mg PO DAILY #30 tab Clopidogrel [Plavix] 75 mg PO DAILY #30 tab amLODIPine BESYLATE [Norvasc] 2.5 mg PO DAILY Carvedilol [Coreg] 25 mg PO BID-W/MEALS Discontinued Atorvastatin [Lipitor] 40 mg PO QAM Amiodarone [Cordarone] 200 mg PO HS Discharge Medication List Pantoprazole [Protonix] 40 mg PO AC-BRKFST #30 tablet. 05/29/20 [Rx] Aspirin EC [Ecotrin Low Dose] 81 mg PO DAILY #90 tablet. 08/04/20 [Rx] Spironolactone [Aldactone] 25 mg PO DAILY #90 tablet 08/04/20 [Rx] Clopidogrel [Plavix] 75 mg PO DAILY #30 tab 08/06/20 [Rx] lisinopriL [Zestril] 20 mg PO DAILY #30 tab 08/06/20 [Rx] amLODIPine BESYLATE [Norvasc] 2.5 mg PO DAILY 09/07/20 [History] Atorvastatin [Lipitor] 40 mg PO QAM tab 09/14/20 [Rx] Carvedilol [Coreg] 25 mg PO BID-W/MEALS 09/14/20 [History] carvediloL [Coreg*] 25 mg PO AC-BID #120 tab 09/15/20 [Rx] Follow up Appointment(s)/Referral(s): Chandler Raza DO [STAFF PHYSICIAN] - 09/19/20 3:00 pm (Device Clinic appointment at 3:00pm at Cardiology's main office and then follow up with Dr. Raza after that) Patient Instructions/Handouts: Pacemaker (DC)
[2020-09-15] MEDS ORDERED: carvediloL 12.5 MG TAB PO SCH (17:30)
== END 2020-09-15 13:30 | disposition home or self-care (01) ==
LOC: CATHEP 06:13 → 6NMEDSUR 12:10 → CATHEP 09-15 13:30
PROVIDERS: ATTEND Internal Medicine Clinical Cardiac Electrophysiology
DX: I47.2 Ventricular tachycardia (principal); I42.9 Cardiomyopathy, unspecified; G62.9 Polyneuropathy, unspecified; I25.10 Atherosclerotic heart disease of native coronary artery without angina pectoris; I25.5 Ischemic cardiomyopathy; I48.0 Paroxysmal atrial fibrillation; I73.9 Peripheral vascular disease, unspecified; I46.9 Cardiac arrest, cause unspecified; I63.9 Cerebral infarction, unspecified; I34.0 Nonrheumatic mitral (valve) insufficiency; I51.3 Intracardiac thrombosis, not elsewhere classified; Z95.1 Presence of aortocoronary bypass graft; Z79.02 Long term (current) use of antithrombotics/antiplatelets; Z79.82 Long term (current) use of aspirin; Z79.899 Other long term (current) drug therapy; Z88.1 Allergy status to other antibiotic agents; Z72.0 Tobacco use; Z95.810 Presence of automatic (implantable) cardiac defibrillator
CPT/HCPCS: 93641; 33216; 33244; 71045; C1769 ×2; C1892; C1777; J2250; J0690 ×2; J2001; J3010; J0131; J2704; J1170

== ENCOUNTER 2020-10-02 07:12 | Day surgery (SDC) | payer BC ==
[2020-09-26 12:22] VITALS: BMI 27.9
[~2020-10-02 07:12] MED LIST changes: +ALPRAZolam 0.25 MG TAB PO PRN; +ASPIRIN 325 MG TAB PO PRN; -MIDAZOLAM 2 MG/2 ML VIAL IV PRN; -SODIUM CHLORIDE 0.9% 1,000 ML IV SCH; +SODIUM CHLORIDE 0.9% 1,000 ML in EMPTY BAG 1 BAG IV ONE
[2020-10-02] MEDS ORDERED: ASPIRIN 81 MG ONE (07:27)
[2020-10-02] MEDS ORDERED: SODIUM CHLORIDE 0.9% 1,000 ML IV ONE (07:35)
[2020-10-02 07:57] VITALS: RESP 16; TEMP 97
[2020-10-02] MEDS ORDERED: SODIUM CHLORIDE 0.9% 1,000 ML in EMPTY BAG 1 BAG IV ONE (08:00)
[2020-10-02] MEDS ORDERED: fentaNYL (PF) 50 MCG/ML 2 ML AMP IV ONE ×2 (08:38)
[2020-10-02] MEDS ORDERED: MIDAZOLAM 2 MG/2 ML VIAL IV ONE (08:39)
[2020-10-02] MEDS ORDERED: LIDOCAINE 1% INJ 10MG/ML (20 ML MDV) SQ ONE (08:41)
[2020-10-02] MEDS: VERAPAMIL SYRINGE (5 MG/10 ML) INTRAARTER ONE ×2 (08:42→09:04)
[2020-10-02] MEDS ORDERED: HEPARIN SODIUM 1,000 UN/ML (10ML VL) IV ONE (08:46)
[2020-10-02] MEDS ORDERED: IOPAMIDOL-250 100ML BTL INTRAARTER ONE (09:04)
--- NOTE | 2020-10-02 10:02 | IR ---
EXAMINATION TYPE: IR angio abdominal w runoff DATE OF EXAM: 10/02/2020 COMPARISON: NONE HISTORY: Fluoroscopy time. Fluoroscopy was provided to the referring clinician.
[2020-10-02] MEDS ORDERED: SODIUM CHLORIDE 0.9% 1,000 ML IV SCH (10:15)
--- NOTE | 2020-10-02 13:34 | P.PCN ---
Description of Procedure: PROCEDURES PERFORMED: Abdominal angiography with bilateral runoff INDICATION: Bilateral Satanta Class 3 claudication, abnormal bilateral LE ultrasound HISTORY: Patient is a pleasant 65-year-old male with history of AAA status post replacement, CVA, PAfib, LV thrombus (since resolved), previous tobacco abuse, neuropathy, surgery of his groin area for left leg pain, non-STEMI with hospitalization 03/29/2020 as well as acute CVA, coronary artery disease status post CABG 05/24/2020 with BERNARDO to LAD, SVG to RCA, SVG to diagonal and left radial to ramus. The PLV branch was noted to be small and felt to be ungraftable and patient had a left atrial appendage closure during surgery. Unfortunately patient had a Vfib cardiac arrest where he had been sleeping in a chair and noted patient sounding abnormal and was given CPR with resuscitation and eventual AICD placement. Patient does have left lower extremity numbness and pain and there was a consideration this may have been from his stroke which was mainly in the left upper extremity. He admits these symptoms have been new since the initial hospitalization in March 2020. They have been pretty stable. We had initially given consideration of possible embolic phenomenon causing his stroke as well as showering to his lower extremity. We had however prioritize his cardiac workup. He did see his primary care physician who repeated ABIs which showed decreased IVETTE on the right and unobtainable on the left with monophasic waveform on the left at the femoral site consistent with a more proximal obstruction. Patient admits for his AAA repair this was initially performed by Dr. Watters at [facility] approximately 7 years ago. He then also had a complication with neuropathy of the left lower extremity requiring some sort of surgery. Patient believes this will had to do with the graft and this was performed by Dr. Burrell from [facility]. Therefore he presented for aortic angiography with runoff. CONSENT: I have discussed the risks, benefits and alternative therapies for the above-mentioned procedure and for both sedation/analgesia as well as necessary blood product administration, if indicated, as they pertain to this patient. The patient has indicated understanding and acceptance of the risks and procedures discussed. PROCEDURE: After the risks, benefits and alternatives of the above mentioned procedure explained in detail with the patient, informed consent was obtained. Patient was taken to the catheterization lab and prepped and draped in usual fashion. 1% lidocaine was used to anesthetize the right radial area given concern of bilateral ENGLISH TEACHER disease. A 6-Sudanese sheath was placed in the right radial artery using modified Seldinger technique. A 6-Sudanese pigtail catheter was inserted to the abdominal aorta and DSA imaging was obtained. The catheter was exchanged for a 6Fr Multipurpose catheter which was directed into the left bypass graft for selective angiography. The catheter was then removed. A TR band was placed and the sheath was removed with hemostasis achieved. Patient tolerated the diagnostic portion well. The patient tolerated the procedure well. Patient was transported back to the post catheterization holding area in stable condition. Conscious Sedation: Patient was monitored under the direct supervision of vision of myself for conscious sedation using Versed and fentanyl for a total duration of 37 minutes Abdominal aorta: The abdominal aorta has mild calcifcation and a distal aorta 100% stenosis. The right renal artery has 90% proximal stenosis and the left renal artery has a 60-70% stenosis. There is no significant dissection or aneurysm. There are bilateral aorto-femoral bypass grafts which are widely patent. Right lower extremity: Right common iliac artery: Occluded Right external iliac artery: Occluded Right internal iliac artery: Occluded Right common femoral artery: The bypass graft appears to tie into the common femoral artery or possibly the profunda, with no flow noted down the right SFA, either occlusion at the distal common femoral or proximal SFA. Right profunda: There is no significant stenosis. Right SFA: There is 100% stenosis proximally and diffuse disease, reconstituting at the popliteal with some back filling. Right popliteal artery: There is no significant stenosis. Right tibioperoneal trunk: There is no significant stenosis. Right anterior tibial artery: There is no significant stenosis. Right porterior tibial artery: There is no significant stenosis. Right peroneal artery: There is no significant stenosis. Left lower extremity: Left common iliac artery: Occluded Left external iliac artery: Occluded Left internal iliac artery: Occluded Left common femoral artery: The aorto femoral bypass graft attaches to the common femoral and then there is an approximately 2cm 100% heavily calcified stenosis of the common femoral artery. There is no flow antegrade down the SFA and there are only collaterals to the left profunda and a modest collateral from the left profunda. Left profunda: There is no significant stenosis and this is the sole vessel to the leg. There are diffuse collaterals. Left SFA: There is 100% proximal SFA stenosis without any antergade flow. There is reconstituition at the proximal popliteal artery. Left popliteal artery: There is no significant stenosis. Left tibioperoneal trunk: There is no significant stenosis. Left anterior tibial artery: There is no significant stenosis proximally. Left porterior tibial artery: There is no significant stenosis proximally. Left peroneal artery: There is no significant stenosis proximally. FINAL IMPRESSION: 1. Peripheral arterial disease as described above including 100% occlusion of distal aorta, patent bilateral aorto femoral grafts however right SFA 100% occlusion and left common femoral heavily calcified 100% stenosis with additional long left SFA stenosis. 2. Right renal artery 90% and left renal artery 60-70% stenosis PLAN: 1. Aggressive risk factor modification per most recent ACC/AHA guidelines. 2. Discussed with vascular surgeon, Dr Beaver and we will refer for possible cutdown, left femoral endarterectomy plus or minus left SFA revascularization. Anatomy not suitable for an endovascular first approach. 3. Would treat renal artery stenosis medically at this time. If patient has refractory flash pulmonary edema or worsening CKD, may consider further workup.
[2020-10-02 14:16] VITALS: BP 109/55; PULSE 52
== END 2020-10-02 14:54 | disposition home or self-care (01) ==
LOC: CATHCVL 07:12
PROVIDERS: ATTEND Internal Medicine
DX: I70.213 Atherosclerosis of native arteries of extremities with intermittent claudication, bilateral legs (principal); I74.09 Other arterial embolism and thrombosis of abdominal aorta; I70.0 Atherosclerosis of aorta; I70.1 Atherosclerosis of renal artery; I74.5 Embolism and thrombosis of iliac artery; I48.0 Paroxysmal atrial fibrillation; G62.9 Polyneuropathy, unspecified; I25.2 Old myocardial infarction; I25.10 Atherosclerotic heart disease of native coronary artery without angina pectoris; N18.9 Chronic kidney disease, unspecified; Z86.79 Personal history of other diseases of the circulatory system; Z86.73 Personal history of transient ischemic attack (TIA), and cerebral infarction without residual deficits; Z86.718 Personal history of other venous thrombosis and embolism; Z87.891 Personal history of nicotine dependence; Z98.890 Other specified postprocedural states; Z95.1 Presence of aortocoronary bypass graft; Z86.74 Personal history of sudden cardiac arrest; Z95.810 Presence of automatic (implantable) cardiac defibrillator; Z95.828 Presence of other vascular implants and grafts
CPT/HCPCS: 36245; 75625; 75716; C1769 ×6; C1894 ×2; J2250; J2001; J3010; J1644; Q9966

== ENCOUNTER → 2020-12-05 | Outpatient (CLI) | payer BC ==
[2020-12-05 12:07] LABS: HCT 38.3 % (39.0-53.0); HGB 12.4 gm/dL (13.0-17.5); MCH 30.2 pg (25.0-35.0); MCHC 32.5 g/dL (31.0-37.0); MCV 92.8 fL (80.0-100.0); Mean Platelet Volume 7.5; Platelet Count 167 k/uL (150-450); RBC 4.12 m/uL (4.30-5.90); RDW 15.1 % (11.5-15.5); WBC 8.2 k/uL (3.8-10.6)
[2020-12-05 12:18] LABS: Potassium 4.9 mmol/L (3.5-5.1)
== END | disposition home or self-care (01) ==
LOC: LABPAT 10:53
PROVIDERS: ATTEND Internal Medicine Clinical Cardiac Electrophysiology
DX: Z01.818 Encounter for other preprocedural examination (principal); Z95.810 Presence of automatic (implantable) cardiac defibrillator
CPT/HCPCS: 36415; 80051; 82565; 84520; 85027

== ENCOUNTER 2020-12-13 06:44 | Day surgery (SDC) | payer BC ==
[2020-12-10 11:54] VITALS: BMI 29.0
[~2020-12-13 06:44] MED LIST changes: -ALPRAZolam 0.25 MG TAB PO PRN; -ASPIRIN 325 MG TAB PO PRN; +SODIUM CHLORIDE 0.9% 1,000 ML IV SCH; -SODIUM CHLORIDE 0.9% 1,000 ML in EMPTY BAG 1 BAG IV ONE
[2020-12-13 07:34] VITALS: RESP 16; TEMP 97.8
[2020-12-13] MEDS ORDERED: PROPOFOL 10 MG/ML 20 ML VIAL IV ONE (07:49)
[2020-12-13] MEDS ORDERED: IV FLUID CONTINUATION 400 ML IV ONE (08:03)
--- NOTE | 2020-12-13 08:28 | P.EPPROC ---
- EP Procedure Note Electrophysiology Procedure Note: Diagnosis High DFTs post implant while patient was in amiodarone At that time only 36 J was successful in defibrillated the patient Amiodarone was discontinued Beta blockers were maximized and he was brought back for DFT testing today and anesthesia Result 25 J was unsuccessful in defibrillating patient successfully in the anodal and cathode configuration In the cathode configuration, 25 J changed ventricular fibrillation of fast ventricular tachycardia, most likely bundle branch reentry, with a very narrow QRS and very short cycle length 30 J was successful both in the anodal and cathode configuration This is an improvement since his last DFT, with even 30 J was unsuccessful Procedure details Under anesthesia ventricular fibrillation was induced and successfully detected without dropouts In the cathode configuration the 25 J shock converted the patient to of fast VT, detected in the VF zone 36 J then successfully defibrillated the patient Total charge time 6 seconds High-voltage impedance 59 ohms No shock noise This was later repeated in the anodal configuration Once again the 25 J shock was unsuccessful Patient remained in a more organized rhythm but fast 30 J shock was successfully High-voltage impedance 60 ohms Total charge time 5.8 Atrial threshold 0.5 V at 0.5 ms. P wave 3.2 mV, pacing impedance 400 ohms RV pacing threshold 0.75 V 0.5 ms, R waves greater than 12 mV, pacing impedance 550 ohms High-voltage impedance 60 ohms Device was reprogrammed First VT cardioversion at 30 J first defibrillation at 26 J Appropriate antitachycardia pacing Appropriate detection parameters Procedure ICD interrogation with reprogramming DFT testing and anesthesia
--- NOTE | 2020-12-13 08:31 | P.PRLE ---
RE: BarnardNarayan Dear [place] Mr. Barnard underwent DFT testing once again after stopping amiodarone for about 3 months His DFT now has improved to 30 J from 36 J I reprogrammed the device accordingly hopefully we can stop amlodipine the next 3 months and further maximize carvedilol 50 mg twice daily Thank you for entrusting me with the care of the patient Warm regards Sincerely John Noble
[2020-12-13 09:07] VITALS: BP 115/56; PULSE 52
== END 2020-12-13 09:14 | disposition home or self-care (01) ==
LOC: CATHEP 06:44
PROVIDERS: ATTEND Internal Medicine Clinical Cardiac Electrophysiology
DX: Z45.02 Encounter for adjustment and management of automatic implantable cardiac defibrillator (principal); I48.0 Paroxysmal atrial fibrillation; I25.10 Atherosclerotic heart disease of native coronary artery without angina pectoris; I50.9 Heart failure, unspecified; I69.359 Hemiplegia and hemiparesis following cerebral infarction affecting unspecified side; I69.398 Other sequelae of cerebral infarction; Z87.891 Personal history of nicotine dependence; I25.2 Old myocardial infarction; Z95.1 Presence of aortocoronary bypass graft; Z98.890 Other specified postprocedural states; Z88.1 Allergy status to other antibiotic agents
CPT/HCPCS: 93642; 87635; J2704

== ENCOUNTER 2021-02-05 12:59 | Emergency (ER) | payer BC, MEDICARE ==
[2021-02-05 13:09] VITALS: RESP 16; TEMP 97.5
[2021-02-05 14:01] LABS: Basophils # (A) 0.1 k/uL (0-0.2); Basophils % (A) 1 %; Eosinophils # (A) 0.2 k/uL (0-0.7); Eosinophils % (A) 3 %; HCT 29.9 % (39.0-53.0); HGB 10.6 gm/dL (13.0-17.5); Lymphocytes # (A) 1.4 k/uL (1.0-4.8); Lymphocytes % (A) 20 %; MCH 32.3 pg (25.0-35.0); MCHC 35.4 g/dL (31.0-37.0); MCV 91.4 fL (80.0-100.0); Mean Platelet Volume 8.7; Monocytes # (A) 0.4 k/uL (0-1.0); Monocytes % (A) 6 %; Neutrophils # (A) 4.8 k/uL (1.3-7.7); Neutrophils % (A) 68 %; Platelet Count 135 k/uL (150-450); RBC 3.27 m/uL (4.30-5.90); RDW 13.5 % (11.5-15.5)
[2021-02-05 14:08] LABS: Albumin 3.6 g/dL (3.5-5.0); Calcium 9.4 mg/dL (8.4-10.2); Potassium 4.6 mmol/L (3.5-5.1); Total Bilirubin 0.3 mg/dL (0.2-1.3); Total Protein 6.1 g/dL (6.3-8.2)
[2021-02-05 15:05] VITALS: BP 106/63; PULSE 58
--- NOTE | 2021-02-05 15:07 | ED ---
ENT HPI - General Chief complaint: ENT Stated complaint: nosebleed Time Seen by Provider: 02/05/21 13:17 Source: patient, RN notes reviewed Mode of arrival: ambulatory Limitations: no limitations - History of Present Illness Initial comments: 65-year-old male presents to the emergency department for on-again off-again nosebleeds. He noted there was no active bleeding upon presentation the emergency room. He notes that he called his optics technical officer who told him to come in to get evaluated for frequent nosebleeds. Patient was in no apparent distress or pain while sitting up during the exam interview. notes that she was just wondering about his hemoglobin levels to make sure that it dropped too much. Patient denied any chest pain shortness breath headache nausea vomiting diarrhea constipation fever fatigue chills lightheadedness dizziness fainting. - Related Data Home Medications Medication Instructions Recorded Confirmed Carvedilol [Coreg] 25 mg PO BID 09/14/20 12/13/20 amLODIPine [Norvasc] 2.5 mg PO DAILY 09/26/20 12/13/20 Atorvastatin [Lipitor] 80 mg PO QAM 10/02/20 12/13/20 Previous Rx's Medication Instructions Recorded Aspirin EC [Ecotrin Low Dose] 81 mg PO DAILY #90 tablet. 08/04/20 Spironolactone [Aldactone] 25 mg PO DAILY #90 tablet 08/04/20 Clopidogrel [Plavix] 75 mg PO DAILY #30 tab 08/06/20 lisinopriL [Zestril] 20 mg PO DAILY #30 tab 08/06/20 Allergies Allergy/AdvReac Type Severity Reaction Status Date / Time Tetracyclines Allergy "made me Verified 02/05/21 13:09 sleep for a week" Review of Systems ROS Statement: Those systems with pertinent positive or pertinent negative responses have been documented in the HPI. ROS Other: All systems not noted in ROS Statement are negative. Past Medical History Past Medical History: Coronary Artery Disease (CAD), Heart Failure, CVA/TIA, GERD/Reflux, Hypertension, Myocardial Infarction ([place]) Additional Past Medical History / Comment(s): See Dr Noble H&P, stroke 03/29/20-currently left foot tingling & sensitive and left fingers have cramping. Left ventricular thrombus, previous cva's found on testing, Hx of AAA repair 2004 and due to stents he is unable to have MRI greater than 3.5*. ,tinnitus, diverticulitis, hx CABG (MAY 2020)& defibrillator (07/2020). Last Myocardial Infarction Date:: 03/29/20 History of Any Multi-Drug Resistant Organisms: None Reported Past Surgical History: AICD, Coronary Bypass/CABG, Heart Catheterization, Orthopedic Surgery, Tonsillectomy Additional Past Surgical History / Comment(s): 09/11/20 AICD interogated, bypass sx in left leg, AAA repair 2004, jason carpal tunnel, rt hand X2, KASSIE, Defibrillator(08/04/21), CABG (05/24/2020) Past Anesthesia/Blood Transfusion Reactions: No Reported Reaction Additional Past Anesthesia/Blood Transfusion Reaction / Comment(s): . Type of Cardiac Device: AICD Device Placement Date:: 08/04/21 Past Psychological History: No Psychological Hx Reported Smoking Status: Former smoker - Past Family History Mother Family Medical History: COPD Father Family Medical History: Myocardial Infarction ([place]) Additional Family Medical History / Comment(s): from Brain aneurysm family Family Medical History: No Reported History General Exam Limitations: no limitations General appearance: alert, in no apparent distress Head exam: Present: atraumatic, normocephalic, normal inspection Eye exam: Present: normal appearance, PERRL, EOMI. Absent: scleral icterus, conjunctival injection, periorbital swelling ENT exam: Present: normal exam, mucous membranes moist, other (No septal hematoma or deviation, no active bleeding, nares patent bilaterally, turbinates pink and moist.) Neck exam: Present: normal inspection Respiratory exam: Present: normal lung sounds bilaterally. Absent: respiratory distress, wheezes, rales, rhonchi, stridor Cardiovascular Exam: Present: regular rate, normal rhythm, normal heart sounds. Absent: systolic murmur, diastolic murmur, rubs, gallop, clicks Extremities exam: Present: normal inspection, full ROM, normal capillary refill. Absent: tenderness, pedal edema, joint swelling, calf tenderness Neurological exam: Present: alert, oriented X3 Psychiatric exam: Present: normal affect, normal mood Skin exam: Present: warm, dry, intact, normal color. Absent: rash Course Vital Signs 02/05/21 13:06 Temperature 97.5 F L Pulse Rate 68 Respiratory 16 Rate Blood Pressure 103/69 O2 Sat by Pulse 100 Oximetry Medical Decision Making - Medical Decision Making 65-year-old male complaining of frequent nosebleeds over the last week. Recent labs to check for hemoglobin ordered. Labs unremarkable from previous studies. Case discussed with Dr. Roberts, patient can discharge is stable condition to follow-up with primary care and optics technical officer. ENT referral be given. - Lab Data Result diagrams: 02/05/21 13:43 02/05/21 13:43 Lab Results 02/05/21 02/05/21 Range/Units 13:43 13:43 WBC 7.0 (3.8-10.6) k/uL RBC 3.27 L (4.30-5.90) m/uL Hgb 10.6 L (13.0-17.5) gm/dL Hct 29.9 L (39.0-53.0) % MCV 91.4 (80.0-100.0) fL MCH 32.3 (25.0-35.0) pg MCHC 35.4 (31.0-37.0) g/dL RDW 13.5 (11.5-15.5) % Plt Count 135 L (150-450) k/uL MPV 8.7 Neutrophils % 68 % Lymphocytes % 20 % Monocytes % 6 % Eosinophils % 3 % Basophils % 1 % Neutrophils # 4.8 (1.3-7.7) k/uL Lymphocytes # 1.4 (1.0-4.8) k/uL Monocytes # 0.4 (0-1.0) k/uL Eosinophils # 0.2 (0-0.7) k/uL Basophils # 0.1 (0-0.2) k/uL Sodium 136 L (137-145) mmol/L Potassium 4.6 (3.5-5.1) mmol/L Chloride 110 H (98-107) mmol/L Carbon Dioxide 19 L (22-30) mmol/L Anion Gap 7 mmol/L BUN 41 H (9-20) mg/dL Creatinine 1.14 (0.66-1.25) mg/dL Est GFR (CKD-EPI)AfAm 78 (>60 ml/min/1.73 sqM) Est GFR (CKD-EPI)NonAf 67 (>60 ml/min/1.73 sqM) Glucose 100 H (74-99) mg/dL Calcium 9.4 (8.4-10.2) mg/dL Total Bilirubin 0.3 (0.2-1.3) mg/dL AST 20 (17-59) U/L ALT 17 (4-49) U/L Alkaline Phosphatase 45 (38-126) U/L Total Protein 6.1 L (6.3-8.2) g/dL Albumin 3.6 (3.5-5.0) g/dL Disposition Clinical Impression: Epistaxis Disposition: HOME SELF-CARE Condition: Stable Instructions (If sedation given, give patient instructions): Nosebleed (ED) Additional Instructions: Please return to the Emergency Department if symptoms worsen or any other concerns. Follow-up with ENT in the next several days. Follow-up with primary care as needed. Rubbing Vaseline on the inside nose to keep moist and has a protective barrier. Avoid having direct airflow onto notable sleeping such as air conditioner fans. Is patient prescribed a controlled substance at d/c from ED?: No Referrals: Nadeem Bonds [Primary Care Provider] - 1-2 days Fausto Sheldon MD [STAFF PHYSICIAN] - 1-2 days Time of Disposition: 15:07
== END 2021-02-05 15:35 | disposition home or self-care (01) ==
LOC: EC 12:59
DX: R04.0 Epistaxis (principal); I11.0 Hypertensive heart disease with heart failure; I50.9 Heart failure, unspecified; I25.10 Atherosclerotic heart disease of native coronary artery without angina pectoris; K21.9 Gastro-esophageal reflux disease without esophagitis; I25.2 Old myocardial infarction; Z86.73 Personal history of transient ischemic attack (TIA), and cerebral infarction without residual deficits; Z95.1 Presence of aortocoronary bypass graft; Z79.82 Long term (current) use of aspirin; Z79.02 Long term (current) use of antithrombotics/antiplatelets
CPT/HCPCS: 36415; 80053; 85025; 99283

== ENCOUNTER → 2021-10-10 | Outpatient (CLI) | payer MEDICARE ==
--- NOTE | 2021-10-10 12:10 | CTL ---
EXAMINATION TYPE: CT Low Dose Lung DATE OF EXAM ORDERED: 10/10/2021 HISTORY: Tobacco use. Lung cancer screening CT DLP: 80.[address] CTDI: 2.10 mGy Automated exposure control for dose reduction was used. SCREENING VISIT: Baseline COMPARISON: CT dated 03/29/2020 TECHNIQUE: Low dose computed tomography scan was performed through the chest at 1 mm thick sections a nd reconstructed images in multiple planes at 1 mm and [address] DIAGNOSTIC QUALITY: Satisfactory FINDINGS: LUNG NODULES: None. LUNGS: COPD: Severity: Mild Fibrosis: Severity: None Lymph nodes: No pathologically enlarged. Other findings: Questionable saber-sheath trachea. RIGHT PLEURAL SPACE: Effusion: None Calcification: None Thickening: None Pneumothorax: None LEFT PLEURAL SPACE: Effusion: None Calcification: None Thickening: None Pneumothorax: None HEART: Heart Size: Slightly enlarged, please correlate with echocardiographic results. Left upper chest wall dual-lead pacemaker. Coronary Calcification: Previous CABG. Pericardial Effusion: None OTHER FINDINGS: Upper abdomen: Very small sliding hiatal hernia. Fatty infiltration of the pancreas. Bony thorax: Sternotomy wire sutures with slight gapping at the sternotomy site measuring up to 5.7 m m. Degenerative changes of the lower cervical spine. Supraclavicular region: None Other: Scattered arterial atherosclerotic calcifications. Dilated ascending aorta measuring up to 4 c m. IMPRESSION: No definite pulmonary nodule or lesion identified. Status post CABG. Other incidental fin dings as detailed above. CT LUNG RAD AND CT CHEST RECOMMENDATION: Lung-Rad 1 Negative: Continue annual screening with LDCT in 12 months. S Modifier (other clinically significant findings): None
== END | disposition home or self-care (01) ==
LOC: RADCTMAIN 11:27
PROVIDERS: ATTEND Family Medicine
DX: Z12.2 Encounter for screening for malignant neoplasm of respiratory organs (principal); Z95.1 Presence of aortocoronary bypass graft; Z87.891 Personal history of nicotine dependence
CPT/HCPCS: 71271

== ENCOUNTER 2021-10-23 07:47 | Day surgery (SDC) | payer MEDICARE ==
[2021-10-23] MEDS ORDERED: LACTATED RINGERS 1,000 ML IV SCH (07:48)
[2021-10-23] MEDS ORDERED: LIDOCAINE 1% (10MG/ML) FOR IV START INTRADERMA PRN (07:48)
[2021-10-23 08:27] VITALS: TEMP 97.2
--- NOTE | 2021-10-23 08:38 | P.GSHP ---
History of Present Illness H&P Date: 10/23/21 CHIEF COMPLAINT: Colon screen HISTORY OF PRESENT ILLNESS: The patient is a 66-year-old male who presents for colon screen. Lower endoscopy was offered for further evaluation and management. PAST MEDICAL HISTORY: Please see list. PAST SURGICAL HISTORY: Please see list. MEDICATIONS: Please see list. ALLERGIES: Please see list. SOCIAL HISTORY: No illicit drug use FAMILY HISTORY: No reports of Crohn disease or ulcerative colitis. REVIEW OF ORGAN SYSTEMS: CONSTITUTIONAL: No reports of fevers or chills. PHYSICAL EXAM: VITAL SIGNS: Stable GENERAL: Well-developed pleasant in no acute distress. HEENT: No scleral icterus. Extraocular movements grossly intact. Moist buccal mucosa. NECK: Supple without lymphadenopathy. CHEST: Unlabored respirations. Equal bilateral excursions. CARDIOVASCULAR: Regular rate and rhythm. Distal 2+ pulses. ABDOMEN: Soft, nontender, nondistended. MUSCULOSKELETAL: No clubbing, cyanosis, or edema. ASSESSMENT: 1. Colon screen. PLAN: 1. Recommend proceeding with a lower endoscopy Past Medical History Past Medical History: Coronary Artery Disease (CAD), Heart Failure, CVA/TIA, GERD/Reflux, Hypertension, Myocardial Infarction ([place]) Additional Past Medical History / Comment(s): Stroke 03/29/20-currently left foot tingling & sensitive and left fingers have cramping. Left ventricular thrombus, previous cva's found on testing, Hx of AAA repair 2004 and due to stents he is unable to have MRI greater than 3.5*. ,tinnitus, diverticulitis, hx CABG (MAY 2020)& defibrillator (07/2020). Last Myocardial Infarction Date:: 03/29/20 History of Any Multi-Drug Resistant Organisms: None Reported Past Surgical History: AICD, Coronary Bypass/CABG, Heart Catheterization, Orthopedic Surgery, Tonsillectomy Additional Past Surgical History / Comment(s): 09/11/20 AICD interogated, bypass sx in left leg, AAA repair 2004, jason carpal tunnel, rt hand X2, KASSIE, Defibrillator(08/04/21), CABG (05/24/2020) Past Anesthesia/Blood Transfusion Reactions: No Reported Reaction Additional Past Anesthesia/Blood Transfusion Reaction / Comment(s): . Type of Cardiac Device: AICD Device Placement Date:: 08/04/21 Past Psychological History: No Psychological Hx Reported Additional Psychological History / Comment(s): . Smoking Status: Former smoker Past Alcohol Use History: None Reported Additional Past Alcohol Use History / Comment(s): Quit Smoking 04/10/20, smoked approx 1/2ppd, started smoking 1976. Past Drug Use History: None Reported - Past Family History Mother Family Medical History: COPD Father Family Medical History: Myocardial Infarction ([place]) Additional Family Medical History / Comment(s): from Brain aneurysm family Family Medical History: No Reported History Medications and Allergies Home Medications Medication Instructions Recorded Confirmed Type Aspirin EC [Ecotrin Low Dose] 81 mg PO DAILY #90 tablet. 08/04/20 10/21/21 Rx Carvedilol [Coreg] 25 mg PO BID 09/14/20 10/21/21 History amLODIPine [Norvasc] 2.5 mg PO QAM 09/26/20 10/21/21 History Atorvastatin [Lipitor] 80 mg PO DAILY 02/05/21 10/23/21 History Spironolactone [Aldactone] 25 mg PO QAM 10/21/21 10/21/21 History lisinopriL [Zestril] 20 mg PO QAM 10/21/21 10/21/21 History Allergies Allergy/AdvReac Type Severity Reaction Status Date / Time Tetracyclines Allergy "made me Verified 10/23/21 08:29 sleep for a week" Surgical - Exam Vital Signs Temp Pulse Resp BP Pulse Ox 97.2 F L 65 20 125/60 99 10/23/21 08:26 10/23/21 08:26 10/23/21 08:26 10/23/21 08:26 10/23/21 08:26
[2021-10-23] MEDS ORDERED: PROPOFOL 10 MG/ML 20 ML VIAL IV ONE (09:05)
[2021-10-23] MEDS ORDERED: PHENYLEPHRINE-0.9% NACL SYG 1,000 MCG/10 ML SYRINGE ONE (09:05)
[2021-10-23] MEDS ORDERED: LIDOCAINE 1% INJ 10MG/ML (20 ML MDV) ONE (09:05)
--- NOTE | 2021-10-23 09:25 | P.PCN ---
Date of Procedure: 10/23/21 Description of Procedure: PREOPERATIVE DIAGNOSIS: Personal history of colon polyps Colonoscopy screening POSTOPERATIVE DIAGNOSIS: Tubular adenoma sigmoid colon Rectal adenoma OPERATION: Colonoscopy to the ileocecal valve and appendiceal orifice, cecum Colonoscopy with cold forceps biopsy SURGEON: Cora Heredia MD. ANESTHESIA: MAC. INDICATIONS: The patient is an 66-year-old male who presents personal history of colon polyps. Last colonoscopy over 5 years. Benefits and risks were described and informed consent was obtained. DESCRIPTION OF PROCEDURE: The patient had undergone Sutab prep. The patient had been brought into the operating room and laid in the left lateral decubitus position. After adequate intravenous sedation, the rectum was examined with 2% lidocaine jelly. The prostate fossa was firm. No external hemorrhoids were encountered. The rectal tone was within normal limits. No lesions were palpated in the rectal vault. An Olympus colonoscope was advanced until the cecum, ileocecal valve and appendiceal orifice were clearly viewed. The prep was fair. No large sigmoid diverticulosis was encountered. Colonic polyps were found and removed. No evidence of focal colitis was found. Retroflexion of the scope demonstrated grade 1 internal hemorrhoids without active bleeding or inflammation. The colon was desufflated. The patient had tolerated the procedure well. Withdrawal time was over 6 minutes. FINDINGS: Aronchick preparation quality scale 2+ (1-5) Internal hemorrhoids, grade 1 No external hemorrhoids No arteriovenous malformations. No large sigmoid diverticulosis, few Removal of 5 polyps: - Cold forceps biopsy at 20 cm sigmoid colon, 4 mm polyp. - Cold forceps biopsy at 10 cm rectum 4, 3 to 4 mm polyp. No focal colitis. RECOMMENDATIONS: Repeat colonoscopy in 3 years, 2024 Plan - Discharge Summary Discharge Rx Participant: No New Discharge Prescriptions: Continue Aspirin EC [Ecotrin Low Dose] 81 mg PO DAILY #90 tablet. Carvedilol [Coreg] 25 mg PO BID amLODIPine [Norvasc] 2.5 mg PO QAM Spironolactone [Aldactone] 25 mg PO QAM Atorvastatin [Lipitor] 80 mg PO DAILY lisinopriL [Zestril] 20 mg PO QAM Discharge Medication List Aspirin EC [Ecotrin Low Dose] 81 mg PO DAILY #90 tablet. 08/04/20 [Rx] Carvedilol [Coreg] 25 mg PO BID 09/14/20 [History] amLODIPine [Norvasc] 2.5 mg PO QAM 09/26/20 [History] Atorvastatin [Lipitor] 80 mg PO DAILY 02/05/21 [History] Spironolactone [Aldactone] 25 mg PO QAM 10/21/21 [History] lisinopriL [Zestril] 20 mg PO QAM 10/21/21 [History] Follow up Appointment(s)/Referral(s): Cora Heredia MD [STAFF PHYSICIAN] - As Needed Patient Instructions/Handouts: Colorectal Polyps (GEN) Activity/Diet/Wound Care/Special Instructions: Repeat colonoscopy in 3 years, 2024 Discharge Disposition: HOME SELF-CARE
[2021-10-23 09:31] VITALS: RESP 16
[2021-10-23 09:58] VITALS: BP 105/60; PULSE 56
== END 2021-10-23 09:54 | disposition home or self-care (01) ==
LOC: ORWHC2ENDO 07:47
PROVIDERS: ATTEND Surgery Plastic and Reconstructive Surgery
DX: Z12.11 Encounter for screening for malignant neoplasm of colon (principal); K63.5 Polyp of colon; K64.0 First degree hemorrhoids; Z86.010 Personal history of colon polyps; I25.10 Atherosclerotic heart disease of native coronary artery without angina pectoris; I11.0 Hypertensive heart disease with heart failure; I50.9 Heart failure, unspecified; I25.2 Old myocardial infarction; I69.398 Other sequelae of cerebral infarction; Z98.890 Other specified postprocedural states; Z95.810 Presence of automatic (implantable) cardiac defibrillator; Z95.1 Presence of aortocoronary bypass graft; Z87.891 Personal history of nicotine dependence; Z83.6 Family history of other diseases of the respiratory system; Z82.49 Family history of ischemic heart disease and other diseases of the circulatory system; Z79.82 Long term (current) use of aspirin; Z79.899 Other long term (current) drug therapy; Z88.1 Allergy status to other antibiotic agents
CPT/HCPCS: 45380; 88305; J2001; J2370; J2704

== ENCOUNTER → 2023-10-15 | Outpatient (CLI) | payer MEDICARE ==
--- NOTE | 2023-10-15 11:45 | CTL ---
EXAMINATION TYPE: CT Low Dose Lung DATE OF EXAM ORDERED: 10/15/2023 HISTORY: . Lung cancer screening CT DLP: [address] CTDI: 3.7 mGy Automated exposure control for dose reduction was used. SCREENING VISIT: Follow-up COMPARISON: 10/10/2021. TECHNIQUE: Low dose computed tomography scan was performed through the chest at 1 mm thick sections a nd reconstructed images in multiple planes at 1 mm and 5 mm thick sections. FINDINGS: Mediastinum and Sonja: There is no axillary, mediastinal or hilar lymphadenopathy. Pleural and Pericardial spaces: There are no pleural or pericardial effusions. Upper Abdomen: There is a small sliding hiatal hernia. The visualized upper abdomen otherwise appears unremarkable. Cardiovascular: There is moderate vascular calcification throughout the thoracic aorta without eviden ce of aneurysmal dilation. Moderate cardiomegaly. Left-sided pacemaker leads are unchanged. Lung Parenchyma and Airways: Mild centrilobular emphysema. There is no significant pulmonary nodules. Bones: No fracture or aggressive osseous lesion. IMPRESSION: 1. Negative lung cancer screening examination for significant pulmonary nodules. 2. Mild emphysema. 3. Small hiatal hernia. CT LUNG RAD AND CT CHEST RECOMMENDATION: Lung-Rad 1 Negative: Continue annual screening with LDCT in 12 months.
== END | disposition home or self-care (01) ==
LOC: RADCTMAIN 08:46
PROVIDERS: ATTEND Family Medicine
DX: Z12.2 Encounter for screening for malignant neoplasm of respiratory organs (principal); K44.9 Diaphragmatic hernia without obstruction or gangrene; J43.2 Centrilobular emphysema; Z87.891 Personal history of nicotine dependence
CPT/HCPCS: 71271

== ENCOUNTER → 2024-10-24 | Outpatient (CLI) | payer MEDICARE ==
[2024-10-24 15:24] LABS: Chol/HDL Ratio 3.07 Ratio; VLDL Calculation 18.02 mg/dL (5.00-40.00)
[2024-10-24 15:25] LABS: ALT 18 U/L (10-49); AST 24 U/L (14-35); Albumin 3.9 g/dL (3.8-4.9); Albumin/Globulin Ratio 1.86 Ratio (1.60-3.17); Alkaline Phosphatase 65 U/L (41-126); BUN/Creat Ratio 12.08 Ratio (12.00-20.00); Blood Urea Nitrogen 14.5 mg/dL (9.0-27.0); Calcium 9.1 mg/dL (8.7-10.3); Carbon Dioxide 22.5 mmol/L (21.6-31.8); Chloride 107 mmol/L (96-109); Globulin 2.1 g/dL (1.6-3.3); Glucose 100 mg/dL (70-110); LDL Cholesterol,Calculated 65.6 mg/dL (0.0-131.0); Potassium 4.4 mmol/L (3.5-5.5); Sodium 140 mmol/L (135-145); Total Bilirubin 0.7 mg/dL (0.3-1.2)
== END | disposition home or self-care (01) ==
LOC: LABWHC1 10:37
PROVIDERS: ATTEND Family Medicine
DX: I10 Essential (primary) hypertension (principal); E78.5 Hyperlipidemia, unspecified; R73.01 Impaired fasting glucose
CPT/HCPCS: 36415; 80053; 80061; 83036